=== PATIENT | male | born 1985 | race Caucasian/White ===

== ENCOUNTER 2022-03-31 13:29 | Emergency (ER) | payer BC, SELFPAY ==
[2022-03-31 13:38] VITALS: BP 181/102; PULSE 86; RESP 16; TEMP 36.6; O2SAT 99; BMI 34.5
--- NOTE | 2022-03-31 16:03 | CRLHL7_ITS ---
For Patients: As a result of the Century Cures Act, medical imaging exams and procedure reports are released immediately into your electronic medical record. You may view this report before your referring provider. If you have questions, please contact your health care provider. Indication: Right testicular pain. History of left orchiectomy.. Technique: Ultrasound of the scrotum and contents. Sonographic pitt-scale images were obtained with spectral and color Doppler waveform and spectral waveform analysis of the testicles. Comparison: None. Findings: Status post left orchiectomy. Right testicle is normal in size measuring 4.5 x 2.1 x 4.0 centimeters. No masses. Testicular microlithiasis is noted, nonspecific.. Normal arterial and venous color Doppler blood flow and spectral waveforms are present in the right testicle. Right epididymis: Unremarkable. Normal blood flow. Other: Small right hydrocele is noted. No sign of varicocele. Scrotal wall is normal. Impression: Status post left orchiectomy. Small right hydrocele. Scattered microcalcifications noted within the right testicle, nonspecific. No masses identified. No abnormal blood flow or evidence of inflammatory changes. Dictated by Lisa Jordan MD @ 03/31/2022 5:43:58 PM (Electronically Signed)
--- NOTE | 2022-03-31 16:15 | ED.NURSE ---
Patient to radiology for u/s.
--- OUTSIDE RECORDS SUMMARY | 2022-03-31 16:53 | XMS_ITS | Encounter Summary ---
:1985 Author Organization [place] Address [address] [facility] [place] [address] Care Team Providers Name Role Phone Carlos Chapamn MD Unavailable [facility], [facility] Clinics- Reason for Visit Reason Onset Date Comments Question 07/25/2019 Patient has a new one - what is the jarrod for the aid? Encounter Details Date Type Department Care Team Description 07/25/2019 Telephone [facility] Audiology Unknown Question (Patient has a new [address] [facility] phone - what is the jarrod for 4th Floor the aid?) [place], [place] [phone] Social History Tobacco Use Types Packs/Day Years Used Date Smoking Tobacco: Never Pipe Smokeless Tobacco: Never Alcohol Use Standard Drinks/Week Comments Yes 1 (1 standard drink = 0.6 oz pure Alcoho lic Drinks/day: Social alcohol) drinker. 1 every cou ple months. Sex Assigned at Date Recorded Not on file documented as of this encounter Miscellaneous Notes Telephone Encounter - Kitty Casper - 07/25/2019 4:42 PM CST Called patient with information on phone application for hearing aid use and he has already figured it out and has functioning on his phone. Luis Sneed. Flatbed [place] [phone] [facility] Call Center Phone Message May a detailed message be left on voicemail: yes Reason for Call: Other: Patient has a new phone and called to find out what the name of the jarrod is that he downloads for his GN Resound hearing aid. Please follow up with patient. Thank you! 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
--- OUTSIDE RECORDS SUMMARY | 2022-03-31 16:53 | XMS_ITS | Clinical Summary ---
:1985 Author Organization [place] Address [address] [place] [address] Care Team Providers Name Role Phone [facility], [facility]- Allergies Active Allergy Reactions Severity Noted Date Comments Seasonal Allergies 09/02/2016 Medications Medication Sig Dispensed Refills Start Date End Date Status medical cannabis 100 mLs (This is 0 Information 0 Active oral liquid NOT a only (Patient's own prescription, and supply. 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 The purpose of this order is to document that the patient reports taking medical cannabis.) alum & mag Take 30 mLs by 355 mL 0 08/07/2015 Act tamera hydroxide-simethi mouth every 4 cone hours as needed (MYLANTA/MAALOX) for indigestion 200-200-20 MG/5ML SUSP Additional Information Patient not taking. Reported on 02/17/2017 acetaminophen (TYLENOL) 325 MG Take 2 tablets (650 mg) 40 tablet 0 10/23/2015 Active tablet by mouth every 6 hours as needed Additional Information Patient not taking. Reported on 02/17/2017 ibuprofen (ADVIL,MOTRIN) 200 Take 3 tablets 100 tablet 3 02/09 Active MG tabletIndications: (600 mg) by Cisplatin induced neuropathy mouth every 6 (H) hours as needed medical cannabis oral liquid 0 Information only 0 Active (Patient's own supply. Not a prescription) cetirizine HCl 10 MG Take 1 capsule 30 capsule 1 06/12/2016 Active CAPSIndications: Other acute by mouth daily nonsuppurative otitis media as needed of left ear Additional Information Patient not taking. Reported on 02/17/2017 cholecalciferol (VITAMIN D3) Take 1 capsule 12 capsule 3 08/17 Active 41098 UNITS capsuleIndications: (50,000 Units) by Vitamin D deficiency mouth once a week Additional Information Patient not taking. Reported on 02/17/2017 fluticasone (FLONASE) 50 Roann 1-2 sprays into 1 Bottle 3 Active MCG/ACT sprayIndications: both nostrils daily Seasonal allergic rhinitis, unspecified allergic rhinitis trigger ibuprofen (ADVIL/MOTRIN) 600 MG TAKE 1 TABLET BY MOUTH 30 tablet 3 10/28/2016 Active tabletIndications: Other acute EVERY 6 HOURS nonsuppurative otitis media of NEEDED FOR MODERATE left ear PAIN Additional Information Patient not taking. Reported on 02/17/2017 chlorthalidone (HYGROTON) 25 MG Take 1 tablet (25 30 tablet 1 02/17/2017 Active tabletIndications: Benign mg) by mouth daily essential hypertension methocarbamol (ROBAXIN) 750 MG Take 1 tablet (750 15 tablet 0 10/03/2019 Active tablet mg) by mouth 4 times daily as needed for muscle spasms Active Problems Patient Care Coordination Note Formatting of this note might be differe nt from the original. [email or web address] Problem Noted Date CARDIOVASCULAR SCREENING; LDL GOAL LESS THAN 160 08/04 Hearing loss of both ears 08/04/2016 Vitamin D deficiency 03/18/2016 Advance Care Planning 01/13/2016 Overview: Advance Care Planning 01/13/2016: Receipt of ACP document: Received: Resuscitation Guidelines order which was signed and dated by provider on 01/08/2016. Document not previously scanned. Reviewed for sharon padgett as medical order and sent to [facility]. Code Status reflects choices in most recent ACP document. Confirmed/documented designated decision maker(s). Added by Stefany Lau Benign essential hypertension 12/10/2015 Chronic pain syndrome 11/04/2015 Overview: Patient is followed by PATEL JC for ongoing prescription of pain medication. All refills should be approved by this provider, or covering partner. Medication(s): medical cannabis. Maximum quantity per month: not prescrib ed by [facility] visit frequency required: also ma naged by Pain Management Controlled substance agreement on file: No Pain Clinic evaluation in the past: Yes Date/Location: [place] 11/2014 and new referral 10/2015 DIRE Total Score(s): No flowsheet data found. 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 Dizziness 03/09/2014 Health Shelter 03/06/2014 Overview: Status: Resources provided Scribing Machine Operator: Ammy Olivera RN [phone], Susan Garcia [phone] (no active care coordination) See Letters for [facility] Emergency Care Plan Date: March 06, 2014 Muscle stiffness 02/21/2014 H/O testicular cancer 10/26/2012 Overview: S/p L orchiectomy Resolved Problems Problem Noted Date Resolved Date Bilateral low back pain, with sciatica presence unspecified 06/26/2015 07/03/2015 CARDIOVASCULAR SCREENING; LDL GOAL LESS THAN 160 10/25/2012 06/03/2016 Low back pain 08/21/2009 10/17/2009 Ankle pain 09/28/2008 08/21/2009 Pain in joint, ankle and foot 06/13/2008 09/05/2008 Brachial neuritis or radiculitis 02/10/2005 010 Overview: Problem list name updated by automated p rocess. Provider to review iamLUMB/LUMBOSAC DISC DEGEN 02/10/2005 08/21/2009 Immunizations Name Administration Dates Next Due Influenza (IIV3) PF 03/01/2009, 04/26/2001 Influenza Vaccine IM > 6 months Valent IIV4 04/06/2014 (Alfuria,Fluzone) MMR 01/23/1997 TD (ADULT, 7+) 11/29/2007, 01/23/1997 TDAP Vaccine (Adacel) 10/26/2012 Tdap (Adacel,Boostrix) 11/17/2011 Family History Medical History Relation Comments Obesity Father C.A.D. Maternal Grandfather [place] Myocardial Infarction Maternal Grandfather C.A.D. Maternal Uncle several with heart d isease Cancer Maternal Uncle lymphoma Neurologic Disorder Maternal Uncle Multiple Sclerosis a nd brain aneurysm Obesity Mother Cancer Paternal Grandfather stomach cancer Relation Status Comments Brother 1 Alive Brother 2 Alive Father Alive Maternal Grandfather Maternal Grandmother Alive Maternal Uncle Mother Alive Paternal Grandfather Paternal Grandmother Alive Sister Alive Son 1 Alive Son 2 Alive Social History Tobacco Use Types Packs/Day Years Used Date Smoking Tobacco: Never Pipe Smokeless Tobacco: Never Tobacco Cessation: Counseling Given: No Alcohol Use Standard Drinks/Week Comments Yes 1 (1 standard drink = 0.6 oz pure Alcoho lic Drinks/day: Social alcohol) drinker. 1 every cou ple months. Sex Assigned at Date Recorded Not on file Last Filed Vital Signs Vital Sign Reading Time Taken Comments Blood Pressure 148/92 12/12/2020 6:00 PM CDT Pulse 81 12/12/2020 6:00 PM CDT Temperature 36.6 ??C (97.8 ??F) 12/12/2020 3:44 PM CDT Respiratory Rate 16 12/12/2020 6:00 PM CDT Oxygen Saturation 98% 12/12/2020 6:00 PM CDT Inhaled Oxygen Concentration - - Weight 95.3 kg (210 lb) 12/12/2020 3:44 PM CDT Height 167.6 cm (5' 6) 10/03/2019 7:22 PM CDT Body Mass Index 33.89 10/03/2019 7:22 PM CDT Plan of Treatment Health Maintenance Due Date Last Done Comments ANNUAL REVIEW OF HM ORDERS 1985 HEPATITIS B IMMUNIZATION (1 1985 of 3 - 3-dose series) URINE DRUG SCREEN 1985 COVID-19 Vaccine (#1) 04/09/1985 MEDICARE ANNUAL WELLNESS 10/26/2013 10/26/2012 VISIT ADVANCE CARE PLANNING 03/16/2021 03/16/2016, 01/13/2016 PHQ-2 (once per calendar 05/31/2021 03/19/2016, 03/19/2016, year) 03/19/2015 LIPID 08/18/2021 08/18/2016, 06/04/2016, 02/05/2015, Additional history exists INFLUENZA VACCINE (#1) 2022 03/12/2017, 02/26/2017, 04/06/2014, Additional history exists DTAP/TDAP/TD IMMUNIZATION 11/14/2028 11/14/2018, 10/26/2012 , (6 - Td or Tdap) 11/17/2011, Additional history exists HEPATITIS C SCREENING Completed 03/19/2015 HIV SCREENING Completed 03/19/2015 IPV IMMUNIZATION Aged Out No longer eligi ble based on patient 's age to complete this topic MENINGITIS IMMUNIZATION Aged Out No longe r eligible based on patient 's age to complete this topic Pneumococcal Vaccine: Aged Out No longer eligible Pediatrics (0 to 5 Years) based on patient's age and At-Risk Patients (6 to to co mplete this topic 64 Years) Insurance Payer Benefit Plan / Subscriber ID Effective Dates Phone Addre ss Type Group MEDICARE MEDICARE [id number] 2020-Lauryn [phone] ATTN [facility] Medicare t 40 [address] [place] [address] BLUE PLUS BLUE PLUS [id number] 2019-Pressharon [phone] [address] [address] [address] [place] [address] Ronn Hinkle Personal/Famil Self 1985 [id number] (Home) MARLEN Odell None (Work) [place] [id number] Ronn Hinkle Third Libertarian Self 1985 [id number] (Home) MARLEN Odell None (Work) [place] [phone] Ronn Hinkle Third Libertarian Self 1985 [id number] ([address] [place] [address] Ronn Hinkle Third Libertarian Self 1985 [id number] (Home) [place] [address] Ronn Hinkle Third Libertarian Self 1985 [id number] (Home) MARLEN Odell None (Work) [place] [facility] [id number] Advance Directives For more information, please contact: [phone] Documents on File Type Date Recorded Patient Quality Control Checker Explanati on Advance Directives 01/14/2016 11:14 AM RESUSCITAT ION and Living Will GUIDELINES 01/07 Latest Code Status on File Code Status Date Activated Date Inactivated Comments Full Code 01/10/2016 4:04 PM 04/30/2019 4:34 PM Care Teams Industrial Spray Painter Relationship Specialty Start Date End Date [facility] And PCP - General 04/30/19 [facility] [address] [place] [address]
--- OUTSIDE RECORDS SUMMARY | 2022-03-31 16:53 | XMS_ITS | Encounter Summary ---
:1985 Author Organization [place] Address [address] [place] [address] Care Team Providers Name Role Phone [facility] Clinics- Encounter Details Date Type Department Care Team Description 12/19/2020 Travel Social History Tobacco Use Types Packs/Day Years Used Date Smoking Tobacco: Never Pipe Smokeless Tobacco: Never Alcohol Use Standard Drinks/Week Comments Yes 1 (1 standard drink = 0.6 oz pure Alcoho lic Drinks/day: Social alcohol) drinker. 1 every cou ple months. Sex Assigned at Date Recorded Not on file COVID-19 Exposure Response Date Recorded In the last month, have you been in contact with No / Unsure 12/19/2020 10:51 AM CDT someone who was confirmed or suspected to have Coronavirus / COVID-19? documented as of this encounter Plan of Treatment Not on filedocumented as of this encounter Visit Diagnoses Not on filedocumented in this encounter Additional Health Concerns Assessment Noted Time PHQ-9 Depression Total Score: 5 03/20/2016 7:18 AM CDT documented as of this encounter Care Teams Social Services Assistant Relationship Specialty Start Date End Date [facility] And PCP - General 04/30/19 [facility] [address] [place] [address] documented as of this encounter
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
--- OUTSIDE RECORDS SUMMARY | 2022-03-31 16:53 | XMS_ITS | Encounter Summary ---
:1985 Author Organization [place] Address [address] [place] [address] Care Team Providers Name Role Phone Carlos Chapman MD Unavailable [facility] Clinics- Encounter Details Date Type Department Care Team Description 10/03/2019 Travel Social History Tobacco Use Types Packs/Day [...] been in contact with No / Unsure 10/03/2019 7:21 PM CDT someone who was confirmed or suspected to have Coronavirus / COVID-19? documented as of this encounter Plan of Treatment Not on filedocumented as of this encounter Visit Diagnoses Not on filedocumented in this encounter Additional Health Concerns Assessment Noted Time PHQ-9 Depression Total Score: 5 03/20/2016 7:18 AM CDT documented as of this encounter Care Teams Deputy Head Relationship Specialty Start Date End Date [facility] And PCP - General 04/30/19 [facility]- [address] [place] [address] Carlos Chapman MD Assigned PCP 06/28/16 02/24/20 [address] [place], [place] [id number] documented as of this encounter
--- OUTSIDE RECORDS SUMMARY | 2022-03-31 16:53 | XMS_ITS | Encounter Summary ---
:1985 Author Organization [place] Address [address] [facility] [place] [address] Care Team Providers Name Role Phone [facility] And Primary Care [facility] Clinics- Encounter Details Date Type Department Care Team Description 04/12/[address] [facility] Teodora Sensorin eural hearing Clinic Audiology Bora Jacobs loss, bilateral [facility] on [address] [place] [address] (Primary Dx) [address] [place], [place] 4th Floor [address] [place], [place] [phone] (Work) [phone] Social History Tobacco Use Types Packs/Day Years [...] been in contact with No / Unsure 04/12/2020 8:45 AM EYEGLASS FRAMES POLISHER someone who was confirmed or suspected to have Coronavirus / COVID-19? documented as of this encounter Progress Notes Arlene Araiza AuD - 04/12/2020 9:00 AM CST AUDIOLOGY REPORT BACKGROUND INFORMATION: Ronn Hinkle was seen in the Audiology Clinic at [facility] on 04/12/2020 for follow-up. The patient has been seen previously at an outside clinic and results revealed and essentially bilateral sensorineural hearing loss. The patient was fit with binaural ReSound Linx2 7 hearing aids on 08/25/2016. The patient reports that the hearing aids are not working and that he has concerns regarding his left ear hearing changing. He notes a recent left ear infection. His history is significant for a left tympanoplasty at an outside clinic. An order from his physician was not received in time for today's appointment. It was discussed that he could still have the hearing evaluation, but he insurance would likely not cover the expense without an order. He expressed understanding. TEST RESULTS AND PROCEDURES: Both devices were found to be plugged with cerumen. The devices were thoroughly cleaned and a listening check revealed that they sound crisp and clear with no distortion orweakness noted. A review of how to clear the hearing aids and change wax guards was reviewed, he expressed understanding. Otoscopy revealed no significant cerumen. He reported good volume when the hearing aids were place back in his ears, although he did note that some things sounded strange. The hearing aids were connected with his iPhone again, a review of streaming and the phone jarrod was performed.The phone jarrod did not have all of the features enabled as the hearing aids are still set to auto-acclimatize, suggesting that they have not been worn since his last appointment in 2018. It was discussed that it will take time to adapt to how things sound given that he has not worn the hearing aids, heexpressed understanding. Because the patient felt that he was hearing well with the cleaned hearing aids, he decided against a hearing evaluation today. He was encouraged to follow-up with his ENT (at [facility] who performed his tympanoplasty) regarding his left ear concerns. Patient requested batteries today. 24 cells of size 13 batteries were dispensed and will be billed to the patient's insurance. SUMMARY AND RECOMMENDATIONS: A hearing aid check was performed today. Adjustments were made as notedabove and the patient will return as needed or at least every 8-10 months for cleaning and assessment of hearing aid. Call this clinic with questions regarding today???s visit. Bora Gonzalez Associate Store Manager [place] License #[id number] LASS FRAMES POLISHER documented in this encounter Plan of Treatment Not on filedocumented as of this encounter Procedures Procedure Name Priority Date/Time Associated Diagnosis Comme nts ID HEARING AID CHECK, Routine 04/12/2020 10:25 AM Sensorineura l hearing BINAURAL EYEGLASS FRAMES POLISHER loss, bilateral documented in this encounter Visit Diagnoses Diagnosis Sensorineural hearing loss, bilateral - Primary documented in this encounter Additional Health Concerns Assessment Noted Time PHQ-9 Depression Total Score: 5 03/20/2016 7:18 AM CDT documented as of this encounter Care Teams Piano Maker Relationship Specialty Start Date End Date [facility] And PCP - General 04/30/19 [facility]- [address], [place] [address] documented as of this encounter
--- OUTSIDE RECORDS SUMMARY | 2022-03-31 16:53 | XMS_ITS | Encounter Summary ---
:1985 Author Organization [place] Address [address] [place] [place] [address] Care Team Providers Name Role Phone [facility] And Primary Care [facility] Clinics- Reason for Visit (Routine) - Closed Specialty Diagnoses / Procedures Referred By Contact Refer red To Contact Cardiology Diagnoses NO BB Rh Cardiac Services Procedures ECHO STRESS TEST [address] [place], [place] [address] Phone: Referral ID Status Reason Start Date Expiration Date Visits Requ ested Visits Authorized [id number] Closed 12/19/2020 12/19/2021 1 1 Encounter Details Date Type Department Care Team Description 12/19/2020 Hospital Encounter [facility] Jose Conway Chest pain, [facility] MD Rodolfo unspecified type [facility] [address] [facility] [place], [place] [address] [facility] [address] [place], [place] [phone] [id number] Social History Tobacco Use Types Packs/Day Years [...] / COVID-19? documented as of this encounter Medications at Time of Discharge [...] capsule 12 capsule 3 08/17/2016 (VITAMIN D3) 46458 (50,000 Units) by UNITS mouth once a week capsuleIndications: Vitamin D deficiency fluticasone (FLONASE) [place] 1-2 sprays 1 Bottle 3 08/18/19 17 [...] that the patient reports taking medical cannabis.) methocarbamol Take 1 tablet (750 15 tablet 0 10/03/2019 (ROBAXIN) 750 MG mg) by mouth 4 tablet times daily as needed for muscle spasms documented as of this encounter Plan of Treatment Not on filedocumented as of this encounter Procedures Procedure Name Priority Date/Time Associated Diagnosis Comme nts ECHO EXERCISE MARANDA 12/19/2020 11:29 AM Chest pain, Results for this STRESS TEST CDT unspecified type procedure a re in the results section. documented in this encounter Results ECHO EXERCISE STRESS TEST (12/19/2020 11:29 AM CDT) Anatomical Region Laterality Modality Echocardiography Specimen (Source) Anatomical Collection Method Collection Time Re ceived Time Location / / Volume Laterality 12/19/2020 11:21 AM CDT Narrative 12/19/2020 12:42 PM CDT [id number]^ZORAIDA^GARETH^R [facility] Echocardiography Laboratory [address] [place] [address] Name: RONN HIKNLE : 1985 Study Date: 12/19/2020 11:21 AM Age: 35 yrs Gender: Male Patient Location: [facility] Reason For Study: Chest pain, unspecifie d type Ordering Physician: GARETH CONWAY Referring Physician: GARETH CONWAY Performed By: Valarie Lux BSA: 2.1 m2 Height: 67 in Weight: 210 lb HR: 79 BP: 148/102 mmHg Procedure Stress Echo Complete. Interpretation Summary There was a hypertensive BP response to exercise. This was a normal stress echocardiogram with no evidence of stress-induced ischemia. Stress The patient exercised 10:30. There was a hypertensive BP response to exercise. RPP 77936. The patient exhibited chest pain during exercise. Exercise was stopped due to fatigue. The patient exhibited no chest pain duri ng exercise. Target Heart Rate was not achieved due t o fatigue. The Cortes treadmill score was low risk ( >5 Cortes score). Target Heart Rate was achieved. The EKG portion of this stress test was negative for inducible ischemia (see echo results below). Normal resting wall motion and no stress -induced wall motion abnormality. The visual ejection fraction is estimate d at >70%. Left ventricular cavity size decreases w ith exercise. Global LV systolic function augments wit h exercise. Baseline The patient is in normal sinus rhythm. non specific ivcd inferior leads. Hypertensvie at rest. Normal left ventricular function and wal l motion at rest. The visual ejection fraction is estimate d at 55-60%. No hemodynamically significant valvular abnormalities on 2D or color flow imaging. Stress Results ? Protocol: ??Mickey ?Maximum Predicted HR: ?? 184 bpm ? Target HR: 156 bpm ?% Maximum Predicted HR: 79 % ? Duration ??Heart ??Stage ?? (mm:ss) ??Rate ? BP ? Comment ? (bpm) Stage 1 ?? 3:00 ? 100 ?? 162/1043/1 0 chest tightness Stage 2 ?? 3:00 ? 116 ?? 172/1004/1 0 Chest tightness Stage 3 ?? 3:00 ? 123 ?? 192/1004/1 0 chest pressure Stage 4 ?? 1:30 ? 146 ?/ ?? 5/10 chest pressure. Average functional ? aerobic capacity. RecoveryR ??9:00 ? 93 ?150/100Sy mptoms returned to baseline. ? Stress Duration: ?? 10:30 mm:s s * ?Recovery Time: 9:00 mm:ss ? Maximum Stress HR: 146 bpm * ?METS: ?12 Report approved by: Curt Hunt 12/19 12:42 PM Procedure Note Jose Alfredo Del Toro MD - 12/19/2020Forma tting of this note might be different from the original. [id number]^ZORAIDA^GARETH^R [facility] Echocardiography Laboratory [address] [place] [address] Name: RONN HINKLE : 1985 Study Date: 12/19/2020 11:21 AM Age: 35 yrs Gender: Male Patient Location: [facility] Reason For Study: Chest pain, unspecifie d type Ordering Physician: GARETH CONWAY Referring Physician: GARETH CONWAY Performed By: Valarie Lux BSA: 2.1 m2 Height: 67 in Weight: 210 lb HR: 79 BP: 148/102 mmHg Procedure Stress Echo Complete. Interpretation Summary There was a hypertensive BP response to exercise. This was a normal stress echocardiogram with no evidence of stress-induced ischemia. Stress The patient exercised 10:30. There was a hypertensive BP response to exercise. RPP 01789. The patient exhibited chest pain during exercise. Exercise was stopped due to fatigue. The patient exhibited no chest pain duri ng exercise. Target Heart Rate was not achieved due t o fatigue. The Cortes treadmill score was low risk ( >5 Cortes score). Target Heart Rate was achieved. The EKG portion of this stress test was negative for inducible ischemia (see echo results below). Normal resting wall motion and no stress -induced wall motion abnormality. The visual ejection fraction is estimate d at >70%. Left ventricular cavity size decreases w ith exercise. Global LV systolic function augments wit h exercise. Baseline The patient is in normal sinus rhythm. non specific ivcd inferior leads. Hypertensvie at rest. Normal left ventricular function and wal l motion at rest. The visual ejection fraction is estimate d at 55-60%. No hemodynamically significant valvular abnormalities on 2D or color flow imaging. Stress Results Protocol: Mickey Maximum Predicted HR: 1 84 bpm Target HR: 156 bpm % Maximum Predicted HR: 79 % Duration Heart Stage (mm:ss) Rate BP Comment (bpm) Stage 1 3:00 100 162/1043/10 chest [facility] Stage 2 3:00 116 172/1004/10 Chest tigh tness Stage 3 3:00 123 192/1004/10 chest pres sure Stage 4 1:30 146 / 5/10 chest pressure. Average functional aerobic capacity. RecoveryR 9:00 93 150/100Symptoms return ed to baseline. Stress Duration: 10:30 mm:ss * Recovery Time: 9:00 mm:ss Maximum Stress HR: 146 bpm * METS: 12 Report approved by: Curt Hunt 12/19 12:42 PM Gareth Conway MD CV ECHO ORDERABLES documented in this encounter Visit Diagnoses Diagnosis Chest pain, unspecified type documented in this encounter Additional Health Concerns Assessment Noted Time PHQ-9 Depression Total Score: 5 03/20/2016 7:18 AM CDT documented as of this encounter Care Teams Windows Server Architect Relationship Specialty Start Date End Date [facility] And PCP - General 04/30/19 [facility] [address] [place] [address] documented as of this encounter
--- OUTSIDE RECORDS SUMMARY | 2022-03-31 16:53 | XMS_ITS | Encounter Summary ---
:1985 Author Organization [place] Address [address] [place] [address] Care Team Providers Name Role Phone [facility] Primary [facility] Clinics- Encounter Details Date Type Department Care Team Description 04/12/2020 Travel Social History Tobacco Use Types Packs/Day [...] with No / Unsure 04/12/2020 8:45 AM ORDER ENTRY CLERK someone who was confirmed or suspected to have Coronavirus / COVID-19? documented as of this encounter Plan of Treatment Not on filedocumented as of this encounter Visit Diagnoses Not on filedocumented in this encounter Additional Health Concerns Assessment Noted Time PHQ-9 Depression Total Score: 5 03/20/2016 7:18 AM CDT documented as of this encounter Care Teams Wire Drawing Machine Operator Relationship Specialty Start Date End Date [facility] And PCP - General 04/30/19 [facility] [address] [place], [place] [phone] documented as of this encounter
--- OUTSIDE RECORDS SUMMARY | 2022-03-31 16:53 | XMS_ITS | Encounter Summary ---
:1985 Author Organization [place] Address [address] [place] [address] Care Team Providers Name Role Phone Carlos Chapman MD Unavailable [facility]- Encounter Details Date Type Department Care Team Description 10/03/2019 Emergency [facility] David Kaba MD Lateral epicondylitis [facility] of right elbow Dept [facility] [address] [facility] [address] [id number] [place], [place] [address] (Wo rk) Social History Tobacco Use Types Packs/Day Years [...] / COVID-19? documented as of this encounter Last Filed Vital Signs Vital Sign Reading Time Taken Comments Blood Pressure 154/100 10/03/2019 7:22 PM CDT Pulse 96 10/03/2019 7:22 PM CDT Temperature 36.8 ??C (98.3 ??F) 10/03/2019 7:22 PM CDT Respiratory Rate 14 10/03/2019 7:22 PM CDT Oxygen Saturation 99% 10/03/2019 7:22 PM CDT Inhaled Oxygen Concentration - - Weight 102.7 kg (226 lb 6.6 oz) 10/03/2019 7:22 PM CDT Height 167.6 cm (5' 6) 10/03/2019 7:22 PM CDT Body Mass Index 36.54 10/03/2019 7:22 PM CDT documented in this encounter Discharge Instructions Discharge InstructionsPorter Kaba MD - 10/03/2019 8:26 PM CDT Ice lateral aspect of the elbow 2-3 times daily. Limit heavy lifting and grasping with right upper extremity as much as possible. Take anti- inflammatories as prescribed with food. Follow-up with your primary care physician as outpatient. If develop swelling of the joint or arm fever or other concern return to the emergency department. AttachmentsThe following attachments cannot be sent through Care Everywhere. Lateral Epicondylitis, Understanding (Swiss)Tennis Elbow (Swiss)documented in this encounter Medications at Time of [...] 02/17/2017 (HYGROTON) 25 MG mg) by mouth tabletIndications: daily Benign essential hypertension cholecalciferol Take 1 capsule 12 capsule 3 08/17/2016 (VITAMIN D3) 74028 (50,000 Units) by UNITS mouth once a week capsuleIndications: Vitamin D deficiency fluticasone (FLONASE) [place] 1-2 sprays 1 Bottle 3 08/18/19 17 50 MCG/ACT into both sprayIndications: nostrils daily Seasonal allergic rhinitis, unspecified allergic [...] taking medical cannabis.) methocarbamol Take 1 tablet 15 tablet 0 10/03/2019 (ROBAXIN) 750 MG (750 mg) by mouth tablet 4 times daily as needed for muscle spasms naproxen (NAPROSYN) Take 1 tablet 14 tablet 0 10/03/2019 500 MG tablet (500 mg) by mouth 2 times daily (with meals) for 7 days documented as of this encounter ED Notes Mnaish Reynolds. BRUCE Higuera - 10/03/2019 7:24 PM CDT Pt reports worsening R arm pain radiating from his shoulder to his wrist beginning about 1 week ago.Reports difficulty lifting his phone and doing ADLs. Denies any trauma, CMS intact. 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 Porter Kaba MD - 10/03/2019 7:11 PM CDT History Chief Complaint: Right Arm Pain SHAWNA Hinkle is a 33 year old male who presents to the emergency department for evaluation of right arm pain. Of note, the patient is right handed. Two weeks ago the patient began to experience rightarm pain that starts at his shoulder and radiates down through his elbow and down to his fingers. Hedoes not believe that he has fallen or had any other trauma to his arm. He has not been lifting heavy objects either. He does do repetitive grasping and carrying at work. The patient denies swelling. Allergies: No known drug allergies Medications: Mylanta Cetirizine Hygroton Flonase Past Medical History: Hypertension Neuromuscular disorder Palpitations Testicular cancer Past Surgical History: L testicular ca, with spinal met Family History: Obesity Social History: The patient presents today alone. Smoking Status: Former Smoker Smokeless Tobacco: Never Used Alcohol Use: No Drug Use: No PCP: [facility], [facility]- Review of Systems Musculoskeletal: Negative for joint swelling. Arm pain All other systems reviewed and are negative. Physical Exam Patient Vitals for the past 24 hrs: BP Temp Temp src Pulse Resp SpO2 Height Weight 10/03/191921 (!) 154/100 98.3 ??F (36.8 ??C) Oral 96 14 99 % 1.676 m (5' 6) 102.7 kg (226 lb 6.6 oz) Physical Exam Vital signs and nursing notes reviewed. Constitutional: laying on gurney appears comfortable HENT: Oropharynx is clear and moist Eyes: Conjunctivae are normal bilaterally. Pupils equal Neck: normal range of motion, no pain with range of motion neck or palpation. Cardiovascular: Normal rate, regular rhythm, normal heart sounds. Pulmonary/Chest: Effort normal and breath sounds normal. No respiratory distress. Abdominal: Soft. Bowel sounds are normal. No tenderness to palpation. No rebound or guarding. Musculoskeletal: No right upper extremity swelling. No swelling of the shoulder elbow or wrist noted. Patient has pain with direct palpation to the radial head area. Also increased pain with pronation supination. Neurological: Alert and oriented. No focal weakness Skin: Skin is warm and dry. No rash noted. Psych: normal affect Emergency Department Course Imaging: Radiology findings were communicated with the patient who voiced understanding of the findings. Elbow XR, G/E 3 views, right: Normal joint spaces and alignment. No fracture or joint effusion. As per radiology. Interventions: 2000 Toradol 15 mg IM 2000 Robaxin 750 mg PO Emergency Department Course: 1920 Nursing notes and vitals reviewed. 1926 I performed an exam of the patient as documented above. 2008 The patient was sent for a Elbow XR, G/E 3 views, right while in the emergency department, results above. Findings and plan explained to the Patient. Patient discharged home with instructions regarding supportive care, medications, and reasons to return. The importance of close follow-up was reviewed. The patient was prescribed Robaxin and Naprosyn. Impression & Plan Medical Decision Making: Ronn Hinkle is a 33 year old male who presents to the emergency department today with fairly persistent right arm pain. On examination he had point tenderness at the radial head as well as pain withmostly supination, pronation. He no evidence of discomfort from the cervical spine or right shoulder. There is no joint swelling or soft tissue swelling around the sight. There is no evidence of soft tissue infection. Xray obtained shows no bony abnormality. I discussed with patient the findings and my suspicion that based on his exam and history that he likely has lateral epicondylitis. I recommended limiting his range of motion, repetitive use, and lifting with that right upper extremity as much as possible. Also he should take antiinflammatories twice times daily and ice the area frequently. He is advised to follow up with his primary physician if no improvement in 5 to 7 days. Patient understands the plan and is discharged home. Discharge Diagnosis: ICD-10-CM 1. Lateral epicondylitis of right elbow M77.11 Disposition: The patient is discharged to home. Discharge Medications: New Prescriptions METHOCARBAMOL (ROBAXIN) 750 MG TABLET Take 1 tablet (750 mg) by mouth 4 times daily as needed for muscle spasms NAPROXEN (NAPROSYN) 500 MG TABLET Take 1 tablet (500 mg) by mouth 2 times daily (with meals) for 7 days Scribe Disclosure: I, Eddie Harmon, am serving as a scribe at 7:24 PM on 10/03/2019 to document services personally performed by Porter Kaba MD based on my observations and the provider's statements to me. Porter Kaba MD 10/03/19 2485 documented in this encounter Plan of Treatment Not on filedocumented as of this encounter Procedures Procedure Name Priority Date/Time Associated Diagnosis Comme nts XR ELBOW RIGHT G/E STAT 10/03/2019 8:10 PM Res ults for this 3 VIEWS CDT procedure are i n the results section. documented in this encounter Results Elbow XR, G/E 3 views, right (10/03/2019 8:10 PM CDT) Anatomical Region Laterality Modality Elbow, Right Elbow Right Digital Radiography Specimen (Source) Anatomical Collection Method Collection Time Re ceived Time Location / / Volume Laterality 10/03/2019 8:05 PM CDT Impressions 10/03/2019 8:24 PM CDT IMPRESSION: Normal joint spaces and alig nment. No fracture or joint effusion. Narrative 10/03/2019 8:24 PM CDT EXAM: XR ELBOW RT G/E 3 VW LOCATION: [facility] DATE/TIME: 10/03/2019 8:05 PM INDICATION: Elbow pain. COMPARISON: None. Procedure Note Hector Goldman MD - 10/03/2019Formatting o f this note might be different from the original. EXAM: XR ELBOW RT G/E 3 VW LOCATION: [facility] DATE/TIME: 10/03/2019 8:05 PM INDICATION: Elbow pain. COMPARISON: None. IMPRESSION: Normal joint spaces and alig nment. No fracture or joint effusion. Porter Kaba MD IMG DIAGNOSTIC IMAGING ORDER VANESSA documented in this encounter Visit Diagnoses Diagnosis Lateral epicondylitis of right elbow Lateral epicondylitis of elbow documented in this encounter Administered Medications Inactive Administered Medications - up to 3 most recent administrations Medication Order MAR Action Action Date Dose Rate Site ketorolac (TORADOL) injection Given 10/03/2019 8:01 PM CDT 15 mg Right Thigh 15 mg 15 mg, Intramuscular, ONCE, On Wed10/03/19 at 1950, For 1 dose, Can cause pain on injection. If ordered intravenously (IV) : administer through a running maintenance fluid over 1 minute followed by a flush. If patient complains of pain on injection, may dilute 15-30 mg in 5 mL and push over 1 to 2 minutes. methocarbamol (ROBAXIN) tablet 750 mg Given 10/03/2019 8:01 PM CDT 750 mg 750 mg, Oral, ONCE, On Wed10/03/19 at 1950, For 1 dose documented in this encounter Active and Recently Administered Medications Times are shown in CDT. Scheduled Medication Order 10/01/2019 10/02/2019 10/03/2019 ketorolac (TORADOL) injection 15 mg (COMPLETED) 2000 (Given - Provider: Laengle. Davida Reynolds, RN) 15 mg, Intramuscular, ONCE, 10/03/19 a t 1950, For 1 dose, Can cause pain on injection. If ordered intravenously (IV) : administer through a running maintenance fluid over 1 minute followed by a flush. If patient complains of pain on injecti on, may dilute 15-30 mg in 5 mL and push over 1 to 2 minutes. methocarbamol (ROBAXIN) tablet 750 mg (COMPLETED) 2000 (Given - Provider: Laengle. 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
--- OUTSIDE RECORDS SUMMARY | 2022-03-31 16:53 | XMS_ITS | Encounter Summary ---
:1985 Author Organization [place] Address [address] [place] [id number] Care Team Providers Name Role Phone [facility] Clinics- Encounter Details Date Type Department Care Team Description 12/12/2020 Travel Social History Tobacco Use Types Packs/Day [...] been in contact with No / Unsure 12/12/2020 3:38 PM CDT someone who was confirmed or suspected to have Coronavirus / COVID-19? documented as of this encounter Plan of Treatment Not on filedocumented as of this encounter Visit Diagnoses Not on filedocumented in this encounter Additional Health Concerns Assessment Noted Time PHQ-9 Depression Total Score: 5 03/20/2016 7:18 AM CDT documented as of this encounter Care Teams Auto Winder Relationship Specialty Start Date End Date [facility] And PCP - General 04/30/19 [facility]- [address] [place] [address] documented as of this encounter
--- OUTSIDE RECORDS SUMMARY | 2022-03-31 16:53 | XMS_ITS | Encounter Summary ---
:1985 Author Organization Breaks Address [address] [facility] [place] [address] Care Team Providers Name Role Phone [facility]- Reason for Visit Reason Comments Chest Pain Palpitations Encounter Details Date Type Department Care Team Description 12/12/2020 Emergency [facility] Gareth Conway C hest pain, unspecified type; [facility] Emergency Dep t Essential [facility] [address] [facility] [place] [phone] [address] [facility] [phone] [place], [place] [phone] (Wo rk) Social History Tobacco Use Types [...] (210 lb) 12/12/2020 3:44 PM CDT Height - - Body Mass Index 33.89 10/03/2019 7:22 PM CDT documented in this encounter Discharge Instructions Discharge InstructionsGareth Conway MD - 12/12/2020 6:13 PM CDT I have ordered an outpatient stress test. They will call you to arrange a time to have this performed. Please closely follow-up with your primary care physician for further management of your blood pressure as it was elevated today. Discharge Instructions Chest Pain You have been seen today for chest pain or discomfort. At this time, your provider has found no signs that your chest pain is due to a serious or life- threatening condition, (or you have declined more testing and/or admission to the hospital). However, sometimes there is a serious problem that does not show up right away. Your evaluation today may not be complete and you may need further testing and evaluation. Generally, every Emergency Department visit should have a follow-up clinic visit with either a primary or a specialty clinic/provider. Please follow-up as instructed by your emergency provider today. Return to the Emergency Department if: Your chest pain changes, gets worse, starts to happen more often, or comes with less activity. You are newly short of breath. You get very weak or tired. You pass out or faint. You have any new symptoms, like fever, cough, numb legs, or you cough up blood. You have anything else that worries you. Until you follow-up with your regular provider, please do the following: Take one aspirin daily unless you have an allergy or are told not to by your provider. If a stress test appointment has been made, go to the appointment. If you have questions, contact your regular provider. Follow-up with your regular provider/clinic as directed; this is very important. If you were given a prescription for medicine here today, be sure to read all of the information (including the package insert) that comes with your prescription. This will include important information about the medicine, its side effects, and any warnings that you need to know about. The pharmacist who fills the prescription can provide more information and answer questions you may have about the medicine. If you have questions or concerns that the pharmacist cannot address, please call or return to the Emergency Department. Remember that you can always come back to the Emergency Department if you are not able to see your regular provider in the amount of time listed above, if you get any new symptoms, or if there is anything that worries you. Discharge Instructions Hypertension - High Blood Pressure During you visit to the Emergency Department, your blood pressure was higher than the recommended blood pressure. This may be related to stress, pain, medication or other temporary conditions. In thesecases, your blood pressure may return to normal on its own. If you have a history of high blood pressure, you may need to have your provider adjust your medications. Sometimes, your high measurement here may indicate that you have developed high blood pressure that will stay high unless it is treated.As a general rule, high blood pressure causes problems over years rather than days, weeks, or months. So, while it is important to treat blood pressure, it is rarely important to treat blood pressure immediately. Occasionally we will begin a medication in the Emergency Department; more often we will recommend close follow-up for medications with a primary doctor/clinic. Generally, every Emergency Department visit should have a follow-up clinic visit with either a primary or a specialty clinic/provider. Please follow-up as instructed by your emergency provider today. Return to the Emergency Department if you start to have: A severe headache. Chest pain. Shortness of breath. Weakness or numbness that affects one part of the body. Confusion. Vision changes. Significant swelling of legs and/or eyes. A reaction to any medication started in the Emergency Department. What can I do to help myself? Avoid alcohol. Take any blood pressure medicine that you are prescribed. Get a good night???s sleep. Lower your salt intake. Exercise. Lose weight. Manage stress. See your doctor regularly If blood pressure medication was started in the Emergency Department: The medicine may not have an immediate effect. The body and brain determine what blood pressure you have. The medicine???s job is to retrain the body???s ???thermostat?? to a lower blood pressure. You will need to follow up with your provider to see how this medicine is working for you. If you were given a prescription for medicine here today, be sure to read all of the information (including the package insert) that comes with your prescription. This will include important information about the medicine, its side effects, and any warnings that you need to know about. The pharmacist who fills the prescription can provide more information and answer questions you may have about the medicine. If you have questions or concerns that the pharmacist cannot address, please call or return to the Emergency Department. Remember that you can always come back to the Emergency Department if you are not able to see your regular provider in the amount of time listed above, if you get any new symptoms, or if there is anything that worries you. documented in this encounter Medications at Time [...] capsule 12 capsule 3 08/17/2016 (VITAMIN D3) 21159 (50,000 Units) by UNITS mouth once a week capsuleIndications: Vitamin D deficiency fluticasone (FLONASE) Badger 1-2 sprays 1 Bottle 3 08/18/19 17 [...] muscle spasms documented as of this encounter ED Notes Delvin Camarillo RN - 12/12/2020 3:43 PM CDT Presents with intermittent chest pain over the past week. Pt reports worsening L arm and L neck paintoday and palpitations that take his breath away. Hypertensive in triage. A&O x 4. Gareth Conway MD - 12/12/2020 3:38 PM CDT History Chief Complaint: Chest Pain and Palpitations SHAWNA Hinkle is a 35 year old male with history of testicle cancer in remission who presents with chest pain and shortness of breath that started a week ago. The patient had been working when he first felt these symptoms. The patient explains that the chest pain is in the left side and radiates to his left arm and, today, in his throat which makes him cough. He is shortness of breath all the time and the pain and tightness in his chest wavers in intensity. Despite the variation in intensity, patient has no pain-free episodes since it initiated 1 week prior. He mentions it gets worse in the evening. Exerting himself does not change the symptoms. He is currently is remission for testicle cancer. There is no history of DVT, PE, unilateral leg swelling, recent immobilization, hemoptysis. Review of Systems Constitutional: Positive for fever. Respiratory: Positive for shortness of breath. Cardiovascular: Positive for chest pain. All other systems reviewed and are negative. Allergies: The patient has no known allergies. Medications: Maalox [place] Flonase Robaxin Past Medical History: Testicular cancer Hypertension Neuromuscular disorder Hearing loss Cisplatin induced neuropathy GERD Past Surgical History: Removal of testis Abdomen peritoneum omentum surgery Cholecystectomy EGD Colonoscopy Portacath placement Orchiectomy Family History: Obesity CAD Social History: The patient presents alone. Physical Exam Patient Vitals for the past 24 hrs: BP Temp Temp src Pulse Resp SpO2 Weight 12/12/20 1800 (!) 148/92 -- -- 81 16 98 % -- 12/12/20 1730 (!) 162/107 -- -- 81 -- 97 % -- 12/12/20 1600 (!) 158/113 -- -- 90 -- 100 % -- 12/12/20 1544 (!) 199/122 97.8 ??F (36.6 ??C) Temporal 100 19 97 % 95.3 kg (210 lb) Physical Exam Eyes: Conjunctiva normal Neck: Supple, no meningismus. CV: Regular rate and rhythm. No murmurs, rubs or gallops. No unilateral leg swelling. 2+ radial pulses bilateral. No lower extremity edema. PULM: Clear to auscultation bilateral. No respiratory distress. Good air exchange. No rales or wheezing. No stridor. ABD: Soft, non-tender, non-distended. No pulsatile masses. No rebound, guarding or rigidity. MSK: No gross deformity to all four extremities. LYMPH: No cervical lymphadenopathy. NEURO: Alert. Good muscle tone, no atrophy. Skin: Warm, dry and intact. Psych: Mood is good and affect is appropriate. Emergency Department Course ECG ECG taken at 1553, ECG read at 1555 Sinus rhythm with occasional premature ventricular complexes Rate 97 bpm. MI interval 188 ms. QRS duration 78 ms. QT/QTc 352/447 ms. P-R-T axes 30 -12 14. Imaging: Chest XR, PA and LAT: Negative chest. Reading per radiology. Laboratory: CBC: WBC 11.4 (H), HGB 14.9, PLT 231 BMP: Glucose: 105 (H) o/w WNL (Creatinine 1.38 (H)) Troponin (Collected 1602): <0.015 D dimer: <0.27 UA with microscopic: negative o/w WNL Emergency Department Course: Reviewed: I reviewed nursing notes, vitals, past medical history and care everywhere Assessments: 1554 I obtained history and examined the patient as noted above. 1813 I rechecked the patient and explained findings. Interventions: 1645 Toradol 15 mg IV Disposition: The patient was discharged to home. Impression & Plan Medical Decision Makin-year-old male presented to the ED with a 1 week history of left-sided chest pain. EKG without ischemic changes. Troponin within normal limits despite greater than 72 hours of constant pain thus ruling out [facility]. Low suspicion for pulmonary embolism. D-dimer within normal limits thus no indication for CT scan of the chest. No features to suggest aortic dissection or aortic aneurysm. Patient was hypertensive upon presentation and improved without intervention. Patient safe for discharge home with urgent follow-up with primary care physician for further investigation into his chest pain and hypertension. Outpatient stress test ordered. Differential diagnosis would also include GERD, esophageal spasm,costochondritis, pleurisy. Diagnosis: ICD-10-CM 1. Chest pain, unspecified type R07.9 Exercise Stress Echocardiogram 2. Essential hypertension I10 Scribe Disclosure: Raissa Doran, am serving as a scribe at 4:20 PM on 12/12/2020 to document services personally performed by Gareth Conway MD based on my observations and the provider's statements to me. Gareth Conway MD 12/12/202051 documented in this encounter Plan of Treatment Not on filedocumented as of this encounter Procedures Procedure Name Priority Date/Time Associated Comments Diagnosis XR CHEST 2 VIEWS STAT 12/12/2020 5:26 PM Resul ts for this CDT procedure are i n the results section. D DIMER QUANTITATIVE STAT 12/12/2020 4:49 PM R esults for this CDT procedure are i n the results section. URINE MACROSCOPIC STAT 12/12/2020 4:04 PM Resu lts for this WITH REFLEX TO MICRO CDT procedu re are in the results section. CBC WITH PLATELETS STAT 12/12/2020 4:02 PM Res ults for this AND DIFFERENTIAL CDT procedure a re in the results section. CBC WITH PLATELETS & STAT 12/12/2020 4:02 PM R esults for this DIFFERENTIAL CDT procedure are i n the results section. TROPONIN I STAT 12/12/2020 4:02 PM Results f or this CDT procedure are i n the results section. BASIC METABOLIC PANEL STAT 12/12/2020 4:02 PM Results for this CDT procedure are i n the results section. EKG 12-LEAD, TRACING STAT 12/12/2020 3:53 PM R esults for this ONLY CDT procedure are i n the results section. documented in this encounter Results ECHO EXERCISE STRESS TEST (12/19/2020 11:29 AM CDT) Anatomical Region Laterality Modality Echocardiography Specimen (Source) Anatomical Collection Method Collection Time Re ceived Time Location / / Volume Laterality 12/19/2020 11:21 AM CDT Narrative 12/19/2020 12:42 PM CDT [id number]^ZORAIDA^GARETH^R [facility] [address] [place] [id number] Name: RONN HINKLE : 1985 Study Date: 12/19/2020 11:21 AM Age: 35 yrs Gender: Male Patient Location: [facility] Reason For Study: Chest pain, unspecifie [...] a hypertensive BP response to exercise. RPP 37315. The patient exhibited chest pain during exercise. [...] note might be different from the original. [id number]^ZORAIDA^GARETH^R [facility] [address] [place] [id number] Name: RONN HINKLE : 1985 Study Date: 12/19/2020 11:21 AM Age: 35 yrs Gender: Male Patient Location: [facility] Reason For Study: Chest pain, unspecifie [...] a hypertensive BP response to exercise. RPP 72584. The patient exhibited chest pain during exercise. [...] (bpm) Stage 1 3:00 100 162/1043/10 chest tigh tness Stage 2 3:00 116 172/1004/10 Chest tigh [...] PM Gareth Conway MD CV ECHO ORDERABLES Chest XR, PA & LAT (12/12/2020 5:26 PM CDT) Anatomical Region Laterality Modality Chest Computed Radiography Specimen (Source) Anatomical Collection Method Collection Time Re ceived Time Location / / Volume Laterality 12/12/2020 5:16 PM CDT Impressions 12/12/2020 5:27 PM CDT IMPRESSION: Negative chest. Narrative 12/12/2020 5:27 PM CDT EXAM: XR CHEST 2 VW LOCATION: [facility] DATE/TIME: 12/12/2020 5:16 PM INDICATION: chest pain COMPARISON: PA and lateral views of the chest 10/23/2015 Procedure Note Liban Lee MD - 12/12/2020Format ting of this note might be different from the original. EXAM: XR CHEST 2 VW LOCATION: [facility] DATE/TIME: 12/12/2020 5:16 PM INDICATION: chest pain COMPARISON: PA and lateral views of the chest 10/23/2015 IMPRESSION: Negative chest. Gareth Conway MD IMG DIAGNOSTIC IMAGING ORDER VANESSA D dimer quantitative (12/12/2020 4:49 PM CDT) Analysis Performed At Patho logist Time Signature D-Dimer <0.27 0.00 - 12/12/2020 [facility] Quantitative 0.50 ug/mL 5:06 PM CDT FEU Specimen Anatomical Collection Method Collection Time Receive d Time (Source) Location / / Volume Laterality Blood VENOUS LINE / VAD(CVC, PICC) / 12/12/2020 4:49 PM 11/28 4:54 Unknown Unknown CDT PM CDT Narrative [facility] - 12/12/2020 5:06 PM CDT This D-dimer assay is intended for use i n conjunction with a clinical pretest probability assessment model to exclude pulmonary embolism (PE) and deep venous thrombosis (DVT) in outpatients suspecte d of PE or DVT. The cut-off value is 0.50 ug/mL FEU. Gareth Conway MD LAB - BLOOD ORDERABLES Performing Organization Address City/State/ZIP Code [place] [phone] Care [facility] [address] Lab (1st floor, no room number) UA reflex to Microscopic (12/12/2020 4:04 PM CDT) Patholo gist Method Time Signature Color Urine Light Colorless, 12/12/2020 [facility] Yellow Straw, 4:51 PM CDT Light Yellow, Yellow Appearance Urine Clear Clear 12/12/2020 [facility] Y 4:51 PM CDT Glucose Urine Negative Negative 12/12/2020 [facility] mg/dL 4:51 PM CDT Bilirubin Urine Negative Negative 12/12/2020 [facility] 4:51 PM CDT Ketones Urine Negative Negative 12/12/2020 [facility] mg/dL 4:51 PM CDT Specific [place] 1.024 1.003 - 12/12/2020 [facility] Urine 1.035 4:51 PM CDT Blood Urine Negative Negative 12/12/2020 [facility] 4:51 PM CDT pH Urine 6.0 5.0 - 7.0 12/12/2020 [facility] 4:51 PM CDT Protein Albumin Negative Negative 12/12/2020 [facility] Urine mg/dL 4:51 PM CDT Urobilinogen Normal Normal, 2.0 12/12/2020 [facility] Urine mg/dL 4:51 PM CDT Nitrite Urine Negative Negative 12/12/2020 [facility] 4:51 PM CDT Leukocyte Negative Negative 12/12/2020 [facility] Esterase Urine 4:51 PM CDT Specimen Anatomical Collection Method Collection Time Receive d Time (Source) Location / / Volume Laterality Urine MID-STREAM URINE Non-blood 12/12/2020 4:04 PM 12/12 4:46 SPECIMEN / Unknown Collection / CDT PM CDT Unknown Narrative [facility] - 12/12/2020 4:51 PM CDT Microscopic not indicated Gareth Conway MD LAB - URINE ORDERABLES Performing Organization Address City/State/ZIP Code Phon [place] [phone] Care Lab [address] Lab (1st floor, no room number) (ABNORMAL) CBC with platelets and differential (12/12/2020 4:02 PM CDT) [facility] gist Method Time Signature WBC Count 11.4 (H) 4.0 - 12/12/2020 [facility] 11.0 4:20 PM CDT 10e3/uL RBC Count 4.94 4.40 - 12/12/2020 [facility] 5.90 4:20 PM CDT 10e6/uL Hemoglobin 14.9 13.3 - 12/12/2020 [facility] 17.7 g/dL 4:20 PM CDT Hematocrit 45.0 40.0 - 12/12/2020 [facility] 53.0 % 4:20 PM CDT MCV 91 78 - 100 12/12/2020 [facility] fL 4:20 PM CDT MCH 30.2 26.5 - 12/12/2020 [facility] 33.0 pg 4:20 PM CDT MCHC 33.1 31.5 - 12/12/2020 [facility] 36.5 g/dL 4:20 PM CDT RDW 12.9 10.0 - 12/12/2020 [facility] 15.0 % 4:20 PM CDT Platelet Count 231 150 - 450 12/12/2020 [facility] 10e3/uL 4:20 PM CDT % Neutrophils 71 % 12/12/2020 [facility] 4:20 PM CDT % Lymphocytes 18 % 12/12/2020 [facility] 4:20 PM CDT % Monocytes 9 % 12/12/2020 [facility] 4:20 PM CDT % Eosinophils 2 % 12/12/2020 [facility] 4:20 PM CDT % Basophils 0 % 12/12/2020 [facility] 4:20 PM CDT % Immature 0 % 12/12/2020 [facility] Granulocytes 4:20 PM CDT NRBCs per 100 0 <1 /100 12/12/2020 [facility] WBC 4:20 PM CDT Absolute 8.0 1.6 - 8.3 12/12/2020 [facility] Neutrophils 10e3/uL 4:20 PM CDT Absolute 2.0 0.8 - 5.3 12/12/2020 [facility] Lymphocytes 10e3/uL 4:20 PM CDT Absolute 1.0 0.0 - 1.3 12/12/2020 [facility] Monocytes 10e3/uL 4:20 PM CDT Absolute 0.3 0.0 - 0.7 12/12/2020 [facility] Eosinophils 10e3/uL 4:20 PM CDT Absolute 0.0 0.0 - 0.2 12/12/2020 [facility] Basophils 10e3/uL 4:20 PM CDT Absolute 0.1 (H) <=0.0 12/12/2020 [facility] Immature 10e3/uL 4:20 PM CDT Granulocytes Absolute NRBCs 0.0 10e3/uL 12/12/2020 [facility] 4:20 PM CDT Specimen Anatomical Collection Method Collection Time Receive d Time (Source) Location / / Volume Laterality Blood VENOUS LINE / VAD(CVC, PICC) / 12/12/2020 4:02 PM 11/28 4:16 Unknown Unknown CDT PM CDT Gareth Conway MD LAB - BLOOD ORDERABLES Performing Organization Address City/State/ZIP Code [place] [address] Care Lab [address] Lab (1st floor, no room number) Troponin I (12/12/2020 4:02 PM CDT) P athologist Signature Troponin I <0.015 0.000 - 12/12/2020 [facility] 0.045 ug/L 4:46 PM CDT Comment: The 99th percentile for upper r eference range is 0.045ug/L. Troponin values in the range of 0.045 - 0.120 ug/L may b e associated with risks of adverse clinical events. Specimen Anatomical Collection Method Collection Time Receive d Time (Source) Location / / Volume Laterality Blood VENOUS LINE / VAD(CVC, PICC) / 12/12/2020 4:02 PM 11/28 4:16 Unknown Unknown CDT PM CDT Gareth Conway MD LAB - BLOOD ORDERABLES Performing Organization Address City/State/ZIP Code [place] [address] Care Lab [address] Lab (1st floor, no room number) (ABNORMAL) Basic metabolic panel (12/12/2020 4:02 PM CDT) Patholo gist Method Time Signature Sodium 140 133 - 144 12/12/2020 [facility] mmol/L 4:40 PM CDT Potassium 3.6 3.4 - 5.3 12/12/2020 [facility] mmol/L 4:40 PM CDT Chloride 109 94 - 109 12/12/2020 [facility] mmol/L 4:40 PM CDT Carbon Dioxide 26 20 - 32 12/12/2020 LAB[facility]ORY (CO2) mmol/L 4:40 PM CDT Anion Gap 5 3 - 14 12/12/2020 [facility] mmol/L 4:40 PM CDT Urea Nitrogen 14 7 - 30 12/12/2020 [facility] mg/dL 4:40 PM CDT Creatinine 1.38 (H) 0.66 - 12/12/2020 [facility] 1.25 mg/dL 4:40 PM CDT Calcium 8.8 8.5 - 10.1 12/12/2020 [facility] mg/dL 4:40 PM CDT Glucose 105 (H) 70 - 99 12/12/2020 [facility] mg/dL 4:40 PM CDT GFR Estimate 65 >60 12/12/2020 [facility] mL/min/1.7 4:40 PM CDT 3m2 Comment: As of December 08, 2020, eGFR is ca lculated by the CKD-EPI creatinine equation, without race adjustment. eGFR can be inf luenced by muscle mass, exercise, and diet. The reported eGFR is an estimation only and is only applicable if the renal function is stable. Specimen Anatomical Collection Method Collection Time Receive d Time (Source) Location / / Volume Laterality Blood VENOUS LINE / VAD(CVC, PICC) / 12/12/2020 4:02 PM 11/28 4:16 Unknown Unknown CDT PM CDT Gareth Conway MD LAB - BLOOD ORDERABLES Performing Organization Address City/State/ZIP Code [place] [address] Care Lab [address] Lab (1st floor, no room number) EKG 12 lead (12/12/2020 3:53 PM CDT) [facility] gist Method Time Signature Systolic Blood mmHg RADIOLOGY Pressure RESULTS Diastolic Blood mmHg RADIOLOGY Pressure RESULTS Ventricular Rate 97 BPM RADIOLOGY RESULTS Atrial Rate 97 BPM RADIOLOGY RESULTS MI Interval 188 ms RADIOLOGY RESULTS QRS Duration 78 ms RADIOLOGY RESULTS QT 352 ms RADIOLOGY RESULTS QTc 447 ms RADIOLOGY RESULTS P [place] 30 degrees RADIOLOGY RESULTS R AXIS -12 degrees RADIOLOGY RESULTS T [place] 14 degrees RADIOLOGY RESULTS Interpretation ECG Click View RADIOLOGY Image link RESULTS to view waveform and result Specimen Anatomical Collection Method Collection Time Receive d Time (Source) Location / / Volume Laterality 12/12/2020 3:53 PM 6:42 CDT AM CDT Gareth Conway MD ECG ORDERABLES Performing Organization Address City/State/ZIP Code Phon e Number RADIOLOGY RESULTS documented in this encounter Visit Diagnoses Diagnosis Chest pain, unspecified type Essential hypertension Unspecified essential hypertension Chest pain, unspecified type documented in this encounter Administered Medications Inactive Administered Medications - up to 3 most recent administrations Medication Order MAR Action Action Date Dose Rate Site ketorolac (TORADOL) injection 15 mg Given 12/12/2020 4:45 PM CDT 15 mg 15 mg, Intravenous, ONCE, On [place] 12/12/20 at 1625, For 1 dose, Can cause pain on injection. If ordered intravenously (IV) : administer through a running maintenance fluid over 1 minute followed by a flush. If patient complains of pain on injection, may dilute 15-30 mg in 5 mL and push over 1 to 2 minutes. documented in this encounter Active and Recently Administered Medications Times are shown in CDT. Scheduled Medication Order 12/10/2020 12/11/2020 12/12/2020 ketorolac (TORADOL) injection 15 mg (COMPLETED) 1645 (Given - Provider: Ac Vargas RN - Comment: scanner not charging) 15 mg, Intravenous, ONCE, On [place] 12/12/20 at 1625, For 1 dose, Can cause pain on injection. If ordered intravenously (IV) : administer through a running maintenance fluid over 1 minute followed by a flus h. If patient complains of pain on injec tion, may dilute 15-30 mg in 5 mL and push over 1 to 2 minutes. 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
--- OUTSIDE RECORDS SUMMARY | 2022-03-31 16:53 | XMS_ITS | Encounter Summary ---
:1985 Author Organization [facility] Address [address] [place] [address]. [place] [address] Care Team Providers Name Role Phone [facility]- Encounter Details Date Type Department Care Team Description 04/10/2020 Telephone [facility] Graciela Araiza, Audiology [address] [place] [address] [phone] Social History Tobacco Use Types Packs/Day Years Used Date Smoking Tobacco: Never Pipe Smokeless Tobacco: Never Alcohol Use Standard Drinks/Week Comments Yes 1 (1 standard drink = 0.6 oz pure Alcoho lic Drinks/day: Social alcohol) drinker. 1 every cou ple months. 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 He expressed understanding and stated he would contact his primary care doctor- gave patient clinic fax number. Bora Gonzalez Protection Mgr [place] License #[id number] ILE PIN WORKER documented in this encounter Plan of Treatment Not on filedocumented as of this encounter Visit Diagnoses Not on filedocumented in this encounter Additional Health Concerns Assessment Noted Time PHQ-9 Depression Total Score: 5 03/20/2016 7:18 AM CDT documented as of this encounter Care Teams Radiologist Diagnostic Relationship Specialty Start Date End Date [facility], [facility] And PCP - General 04/30/19 [facility]- [address], [place] [address] documented as of this encounter
--- OUTSIDE RECORDS SUMMARY | 2022-03-31 16:54 | XMS_ITS | Encounter Summary ---
:1985 Author Organization [facility] Address [address] [place] [address] Care Team Providers Name Role Phone Carlos Chapman MD Primary Care Provider [phone] [address] [facility] Unavailable Carlos Chapman MD Unavailable Carlos Chapman MD Unavailable Reason for Referral Diagnostic Imaging MRI - Closed Specialty Diagnoses / Procedures Referred By Contact Refer red To Contact Diagnoses Pain in extremity, unspecified extremity Sensory disturbance Limb weakness History of testicular cancer Davi Presley MD Procedures MR Cervical Spine w/o & w Contrast [address] [address] Referral ID Status Reason Start Date Expiration Date Visits Requ ested Visits Authorized [id number] Closed 12/08/2016 12/08/2017 1 1 Reason for Visit Reason Comments Consult Neuropathy Consultation - Closed Specialty Diagnoses / Procedures Referred By Contact Refer red To Contact Diagnoses Polymyalgia (H) Cisplatin induced neuropathy (H) Carlos Chapman MD [facility] NEUROLOG[facility] DEPT [address] [place] [address] Referral ID Status Reason Start Date Expiration Date Visits Requ ested Visits Authorized [id number] Closed 10/29/2016 10/29/2017 1 1 Encounter Details Date Type Department Care Team Description 12/03/2016 Office Visit Davi Wong, Pain in e xtremity, unspecified extremity (Primary Dx); [facility] Sensory disturbance; [facility] Limb weakn ess; Clinic History of testicular cancer [address] [facility], [address] [place] [address] Social History Tobacco Use Types Packs/Day Years Used Date Smoking Tobacco: Never Smokeless Tobacco: Never Tobacco Cessation: Counseling Given: No Alcohol Use Standard Drinks/Week Comments Yes 0 (1 standard drink = 0.6 oz pure alcoho l) couple drinks per month Sex Assigned at Date Recorded Not on file documented as of this encounter Last Filed Vital Signs Vital Sign Reading Time Taken Comments Blood Pressure 150/95 12/03/2016 1:22 PM CDT Pulse 77 12/03/2016 1:22 PM CDT Temperature - - Respiratory Rate 18 12/03/2016 1:22 PM CDT Oxygen Saturation - - Inhaled Oxygen Concentration - - Weight - - Height - - Body Mass Index - - documented in this encounter Progress Notes Davi Presley MD - 12/03/2016 1:30 PM CDT Images from the original note were not included. 31 y/o male referred for neuropathy Diagnosed with testicular cancer in 1998. Underwent Rx with Cisplatin 6 months and then underwent a surgical procedure that he describes as if might have been on lumbar spine or pelvic but this is speculative. Following this he reports another 6 months of Cisplatin. During his treatment he appreciated numbness, tingling and pain involving his hands and feet and then evolving to involve head to toes. His symptoms have worsened over time and took on new character.He began having problems with gait and dressing. He developed problems with a fullness in his neck that caused choking, trouble swallowing and breathing. He tried Yoga and PT. Ultimately his pain and other symptoms have improved with [facility] (upper C spine[facility] He also reports a stiff neck and urinary control issues. He denies a Lhermitte's phenomenon He reports chronic hearing loss due to his chemotherapy Evaluations since 2013 have included a normal EMG/NCV study at the [facility], Normal Brain MRI, Negative CT neck soft tissue. Nomal or negative lab testing: IEP, Lyme, CK, CRP, B12, AchRAbs, RF, HIV, Treponema pallidum Ab, Hepatitis C Ab, ESR, Cortisol, HBA1C, TSH, CMP, CBC, blood arsenic. He has had low vitamin D levels but is on replacement and was 48 in 08/14. PMHx: Also notable for HTN. He recently stopped lisinopril as felt BP improved with chiro Rx MEDS: Taking? Start Date End Date Provider LT ?? acetaminophen (TYLENOL) 325 MG tablet ??10/23/15 ??-- ??Jose Alfredo Rehman MD ?? Take 2 tablets (650 mg) by mouth every 6 hours as needed ?? alum & mag hydroxide-simethicone (MYLANTA/MAALOX) 200-200-20 MG/5ML SUSP ??08/07/15 ??-- ??Jose Alfredo Rehman MD ?? Take 30 mLs by mouth every 4 hours as needed for indigestion ?? cetirizine HCl 10 MG CAPS ??06/12/16 ??-- ??Carlos Chapman MD ?? Take 1 capsule by mouth daily as needed ?? cholecalciferol (VITAMIN D3) 18339 UNITS capsule ??08/17/16 ??-- ??Carlos Chapman MD ?? Take 1 capsule (50,000 Units) by mouth once a week ?? fluticasone (FLONASE) 50 MCG/ACT spray ??06/03/16 ??-- ??Carlos Chapman MD ?? [place] 1-2 sprays into both nostrils daily ?? fluticasone (FLONASE) 50 MCG/ACT spray ??08/17/16 ??-- ??Carlos Chapman MD ?? [place] 1-2 sprays into both nostrils daily ?? ibuprofen (ADVIL,MOTRIN) 200 MG tablet ??02/10/16 ??-- ??Carlos Chapman MD ?? Take 3 tablets (600 mg) by mouth every 6 hours as needed ?? ibuprofen (ADVIL/MOTRIN) 600 MG tablet ??10/28/16 ??-- ??Carlos Chapman MD ?? TAKE 1 TABLET BY MOUTH EVERY 6 HOURS NEEDED FOR MODERATE PAIN ?? lisinopril (PRINIVIL/ZESTRIL) 20 MG tablet ??08/17/16 ??-- ??Carlos Chapman MD ?? Take 1 tablet (20 mg) by mouth daily ?? medical cannabis oral liquid ??(Patient's own supply. ??Not a prescription) ??-- ??-- ??Carlos Chapman MD ?? medical cannabis oral liquid ??(Patient's own supply. ??Not a prescription) ??-- ??-- ??Carlos Chapman MD ? 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 Does not smoke or use Etoh EXAM: Alert and cooperative HR 77 BP 150/95 CN testing notable to bilateral hearing los to bedside testing. Otherwise CN 2- 12 intact Motor: Normal strength Sensory: Reports patchy decrease pin in fingers, decreased pin to ankles, decreased cold appreciation hands and around ankles sparing the feet. Intact position and vibratory sense Cerebellar and gait are normal DTRs 2+. Toes down IMPRESSION: Hx testicular CA 1998 treated with Cisplatin and surgery (? Pelvic and/or Lumbar spinal) Chronic neuropathic symptoms and pain since Worsening symptoms over past few years affecting function, walking, dressing. Choking sensation Improving with [facility] and medical marijuana Extensive negative testing since 2013 outlined in note above. Has not had cervical MRI Fairly normal neurologic exam except sensory changes PLAN: Cervical MRI. Will call with results ADDENDUM 12/07/16: Cervical MRI normal. Called patient with result. Davi Presley MD ? Dear Dr. Chapman: I saw Ronn Hinkle for neurologic evaluation on 12/03/2016. ??He is a 31-year-old male referred for evaluation of neuropathy, although his history is a bit more complicated than that. ?? He was diagnosed with testicular cancer in 1998. ??He may have had spinal metastases in the lumbar region by his description. ??He underwent a 6 month course of cisplatinum and then had some surgical procedure done and then another course of cisplatinum. ??During and since that therapy, he has had symptoms of neuropathy. ??He reports he has numbness, tingling and pain in his hands and feet. ??In fact, he indicates that these symptoms have evolved and have spread from head to toe. ?? Over the past few years he has gotten worse. ??He has had periods where he has had difficulty walking and dressing. ??He became concerned also because at some point he was having trouble breathing and swallowing. ??He was having a great deal of pain. ?? He reports some neck stiffness but denies a Lhermitte's phenomenon. ??He has had some chronic urinary control issues. ??He has had bilateral hearing loss since his chemotherapy. ?? He is seen in the pain clinic and he has found medical marijuana has greatly helped his pain. ??He has also more recently seen a [facility] who does some form of manipulation of the upper cervical spine and he states he is not choking as much and his sense of weakness and gait dysfunction has significantly improved. ?? Review of his medical record reveals there has been a great deal of testing done relevant to his current problems dating back to 2013. ?? He had a normal EMG and nerve conduction study done at the [facility] in 02/2014. ?? In 02/2016, he had a negative CT scan of the neck soft tissue. ??He also had a negative head MRI scan. ??Laboratory work has included normal or negative serum immunofixation, Lyme, CK, C-reactive protein, acetylcholine receptor antibodies, B12, rheumatoid factor, HIV, a treponemal pallidum antibody, hepatitis C, sedimentation rate, cortisol, hemoglobin A1c, TSH, comprehensive metabolic panel, CBC, and arsenic level. ??He has at times been found to have a low vitamin D level but his vitamin D level in July of this year was 48. His past medical history is otherwise notable for hypertension. ??He was on lisinopril but he stopped that as he felt his blood pressure had improved with his chiropractic treatment. ?? Current medications are vitamin D 50,000 units once a week, Flonase, medical cannabis, ibuprofen, Tylenol, Mylanta. ??He has been prescribed lisinopril but he has discontinued it. ?? He has no medical allergies. 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 ??He does not smoke. ??He does not use alcohol. Examination reveals the patient is alert and cooperative. ??He is valencia and muscular. ??Heart rate is 77. ??Blood pressure 150/95. ??Pupils are equal, round and react well to light. ??Fundi are unremarkable. ??Extraocular motility is full. ??There is no facial weakness or numbness. ??His speech is clear. ??Palate moves in the midline. ??Tongue movements are normal. ??He has decreased hearing bilaterally. ??Motor examination reveals excellent upper and lower extremity strength. ??His sensory examination is notable for intact position sense and vibratory sense. ??He reports a patchy impairment of pinprick involving the fingers and reduction of pinprick to the ankles. ??He reports decreased cold appreciation in his hands and also decreased cold around the ankles but not in the feet. ??Cerebellar function is normal. ??Gait is normal. ??Reflexes are 2+. ??Plantar responses are flexor. IMPRESSION: ?? 1. ??History of testicular cancer treated with cisplatinum. 2. ??Chronic neuropathic symptoms from cisplatinum therapy. 3. ??Somewhat atypical sensory examination. 4. ??Multiple additional complaints including at times trouble walking, dressing, breathing and swallowing. 5. ??Extensive unrevealing workup over the past 2.5 years. PLAN: ??I did reassure him today that his neurologic examination aside from the somewhat atypical sensory findings is unremarkable. ?? For completion, I have recommended a cervical MRI scan. ??I will communicate the results of the cervical MRI scan to him when available. CC: ??Dr. Carlos Chapman documented in this encounter Nursing Notes Nikia Scott MA - 12/03/2016 1:30 PM CDT Chief Complaint Patient presents with ??? Consult Neuropathy Nikia Scott CMA documented in this encounter Plan of Treatment Not on filedocumented as of this encounter Results MR Cervical Spine w/o & w Contrast (12/06/2016 12:00 PM CDT) Anatomical Region Laterality Modality Spine, SUBRAD MR NEURO, UMP MR SPINE Mag netic Resonance Specimen (Source) Anatomical Location Collection Method / Collectio n Time Received Time / Laterality Volume Impressions 12/06/2016 2:01 PM CDT Impression: Normal cervical spine MRI without any ab normal enhancing lesion I have personally reviewed the examinati on and initial interpretation and I agree with the findings. JAE PRATT MD Narrative 12/06/2016 2:01 PM CDT MR CERVICAL SPINE W/O & W CONTRAST 12/06/2016 12:00 PM History: Limb weakness, numbness and marisol n. History of testicular CA, Pain in unspecified limb, Unspecified di sturbances of skin sensation, Other symptoms and signs involving the m usculoskeletal system, Personal history of malignant neoplasm o f testis Additional history from the EMR:Hx testi cular CA 1998 treated with Cisplatin and surgery . Chronic neuropat hic symptoms and pain since. Comparison: Cervical spine MRI from 02/18 and head MRI from 02/19/2014 Technique: Sagittal T1-weighted, sagitta l T2-weighted, sagittal diffusion weighted, axial T2-weighted, a nd axial T2* gradient echo images of the cervical spine were obtain ed without intravenous contrast. Following intravenous administ ration of gadolinium, axial and sagittal T1-weighted images with fat saturation were also obtained. Contrast: 10ml Gadavist Findings: The cervical vertebrae appear normally a ligned. There is no vertebral height loss at any level. There is no di sc height narrowing at any level. No spinal canal stenosis or christoph inal narrowing at any level. There is normal signal within and normal contour of the cervical spinal cord. ??There is no abnormal cont rast enhancement within the cervical spinal cord, thecal sac or vert ebral column. ??No abnormality of the paraspinous soft tissues. Procedure Note Jae Pratt MD - 12/06/2016Formatt ing of this note might be different from the original. MR CERVICAL SPINE W/O & W CONTRAST 017 12:00 PM History: Limb weakness, numbness and marisol n. History of testicular CA, Pain in unspecified limb, Unspecified di sturbances of skin sensation, Other symptoms and signs involving the m usculoskeletal system, Personal history of malignant neoplasm o f testis Additional history from the EMR:Hx testi cular CA 1998 treated with Cisplatin and surgery . Chronic neuropat hic symptoms and pain since. Comparison: Cervical spine MRI from 02/18 and head MRI from 02/19/2014 Technique: Sagittal T1-weighted, sagitta l T2-weighted, sagittal diffusion weighted, axial T2-weighted, a nd axial T2* gradient echo images of the cervical spine were obtain ed without intravenous contrast. Following intravenous administ ration of gadolinium, axial and sagittal T1-weighted images with fat saturation were also obtained. Contrast: 10ml Gadavist Findings: The cervical vertebrae appear normally a ligned. There is no vertebral height loss at any level. There is no di sc height narrowing at any level. No spinal canal stenosis or christoph inal narrowing at any level. There is normal signal within and normal contour of the cervical spinal cord. There is no abnormal contra st enhancement within the cervical spinal cord, thecal sac or vert ebral column. No abnormality of the paraspinous soft tissues. Impression: Normal cervical spine MRI without any ab normal enhancing lesion I have personally reviewed the examinati on and initial interpretation and I agree with the findings. JAE PRATT MD Davi Presley MD IMG MRI ORDERABLES documented in this encounter Visit Diagnoses Diagnosis Pain in extremity, unspecified extremity - Primary Sensory disturbance Disturbance of skin sensation Limb weakness Other musculoskeletal symptoms referable to limbs History of testicular cancer Personal history of malignant neoplasm o f testis Pain in extremity, unspecified extremity Sensory disturbance Disturbance of skin sensation Limb weakness Other musculoskeletal symptoms referable to limbs History of testicular cancer Personal history of malignant neoplasm o f testis documented in this encounter Additional Health Concerns Assessment Noted Time PHQ-9 Depression Total Score: 5 03/20/2016 7:18 AM CDT documented as of this encounter Care Teams Welfare Aide Relationship Specialty Start Date End Date Carlos Chapman PCP - General Family Practice 02/06/14 04/29/19 MD Saw Carlos Chapman PCP - Assigned PCP 06/28/16 08/02/[place] [id number] [address] [address] [address], Clinic Fitness Trainer Competitive Intelligence Manager - 12/12/15 01/21/17 [facility] Clinical Carlos Chapman Assigned PCP 06/28/16 02/24/[place] [id number] [address] [address] documented as of this encounter
--- OUTSIDE RECORDS SUMMARY | 2022-03-31 16:54 | XMS_ITS | Encounter Summary ---
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 (ABNORMAL) Drugs of Abuse 1+ Panel, Urine ([facility] Only) (05/26/2019 11:31 PM PHYSICIAN ASST) [facility] Method Time Signature Amphetamines Urine Screen Screen 05/26/2019 [facility] Negative Negative 11:52 PM [facility] Benzodiazepines Screen Screen 05/26/2019 [facility] Urine Negative Negative 11:52 PM [facility] Opiates Urine Screen Screen 05/26/2019 [facility] Negative Negative 11:52 PM [facility] PCP Urine Screen Screen 05/26/2019 [facility] Negative Negative 11:52 PM [facility] Cannabinoids Urine Screen Screen 05/26/2019 [facility] Negative Negative 11:52 PM [facility] Barbiturates Urine Screen Screen 05/26/2019 [facility] Negative Negative 11:52 PM [facility] Cocaine Urine Screen Screen 05/26/2019 [facility] Negative Negative 11:52 PM [facility] Methadone Urine Screen Screen 05/26/2019 [facility] Negative Negative 11:52 PM [facility] Oxycodone Urine Screen Screen 05/26/2019 [facility] Positive Negative 11:52 PM [facility] (Confirmatio [facility] n available LABORAT[facility] on request) (A) Creatinine, Urine 146.7 mg/dL 05/26/2019 [facility] 11:52 PM [facility] Specimen Anatomical Collection Method Collection Time Receive d Time (Source) Location / / Volume Laterality Urine specimen Non-blood 05/26/2019 11:31 9 (specimen) Collection / PM PHYSICIAN ASST 11:34 PM PHYSICIAN ASST Unknown Narrative [facility] - 05/26/2019 11:52 PM PHYSICIAN ASST Drug ? Screening Threshold Amphetamines ?1000 ng/mL Benzodiazepine ? 200 ng/mL Opiates ?300 ng/mL Phencyclidine ? 25 ng/mL THC Metabolite ?50 ng/mL Barbiturates ? 200 ng/mL Cocaine Metabolite ? 150 ng/mL Methadone ?300 ng/mL Oxycodone ?100 ng/mL Screening results are to be used only fo r medical purposes. Unconfirmed screening results are not to be used for non- medical purposes. Anastacia Katz MD LAB - URINE ORDERABLES Performing Organization Address City/State/ZIP [facility] Ph[place] [address] (ABNORMAL) Comprehensive metabolic panel (05/26/2019 9:56 PM PHYSICIAN ASST) [facility] Method Time Signature Sodium 140 136 - 145 05/26/2019 [facility] mmol/L 10:12 PM [facility] Potassium 3.9 3.5 - 5.0 05/26/2019 [facility] mmol/L 10:12 PM [facility] Chloride 107 98 - 107 05/26/2019 [facility] mmol/L 10:12 PM [facility] Carbon Dioxide 26 22 - 31 05/26/2019 [facility] (CO2) mmol/L 10:12 PM [facility] Anion Gap 7 5 - 18 05/26/2019 [facility] mmol/L 10:12 PM [facility] Glucose 108 70 - 125 05/26/2019 [facility] mg/dL 10:12 PM [facility] Urea Nitrogen 18 8 - 22 05/26/2019 [facility] mg/dL 10:12 PM [facility] Creatinine 1.32 (H) 0.70 - 05/26/2019 [facility] 1.30 10:12 PM [facility] mg/dL [facility] GFR Estimate If >60 >60 05/26/2019 [facility] Black mL/min/1. 10:12 PM [facility] 73m2 [facility] GFR Estimate >60 >60 05/26/2019 [facility] mL/min/1. 10:12 PM [facility] [address] [facility] Bilirubin Total 0.4 0.0 - 1.0 05/26/2019 [facility] mg/dL 10:12 PM [facility] Calcium 9.4 8.5 - 05/26/2019 [facility] 10.5 10:12 PM [facility] mg/dL [facility] Protein Total 7.4 6.0 - 8.0 05/26/2019 [facility] g/dL 10:12 PM [facility] Albumin 3.9 3.5 - 5.0 05/26/2019 [facility] g/dL 10:12 PM [facility] Alkaline 121 (H) 45 - 120 05/26/2019 [facility] Phosphatase U/L 10:12 PM [facility] AST 31 0 - 40 05/26/2019 [facility] U/L 10:12 PM [facility] ALT 61 (H) 0 - 45 05/26/2019 [facility] U/L 10:12 PM [facility] Specimen Anatomical Collection Method Collection Time Receive d Time (Source) Location / / Volume Laterality Blood specimen VAD(CVC, PICC) / 05/26/2019 9:56 PM 9:56 (specimen) Unknown PHYSICIAN ASST PM PHYSICIAN ASST Narrative [facility] - 05/26/2019 10:12 PM PHYSICIAN ASST Fasting Glucose reference range is 70-99 mg/dL per Citizen Of The [place] Diabetes Association (ADA) elmer montalvo. Anastacia Katz MD LAB - BLOOD ORDERABLES Performing Organization Address City/State/ZIP Code Phon e Number [facility] [place] [id number] [place] [address] [place] [address], [facility] (ABNORMAL) CBC with platelets (05/26/2019 9:56 PM PHYSICIAN ASST) [facility] Method Time Signature WBC 12.5 (H) 4.0 - 11.0 05/26/2019 [facility] th/uL 9:59 PM [facility] RBC Count 5.13 4.40 - 05/26/2019 [facility] 6.20 9:59 PM [facility] Hemoglobin 15.6 14.0 - 05/26/2019 [facility] 18.0 g/dL 9:59 PM [facility] Hematocrit 45.7 40.0 - 05/26/2019 [facility] 54.0 % 9:59 PM [facility] MCV 89 80 - 100 05/26/2019 [facility] fL 9:59 PM [facility] MCH 30.4 27.0 - 05/26/2019 [facility] 34.0 pg 9:59 PM [facility] MCHC 34.1 32.0 - 05/26/2019 [facility] 36.0 g/dL 9:59 PM [facility] Y[facility]NE [facility] RDW 12.8 11.0 - 05/26/2019 [facility] 14.5 % 9:59 PM [facility] Platelet Count 246 140 - 440 05/26/2019 [facility]/uL 9:59 PM [facility] Mean Platelet 10.6 8.5 - 12.5 05/26/2019 [facility] Volume fL 9:59 PM [facility] Specimen Anatomical Collection Method Collection Time Receive d Time (Source) Location / / Volume Laterality Blood specimen VAD(CVC, PICC) / 05/26/2019 9:56 PM 9:56 (specimen) Unknown PHYSICIAN ASST PM PHYSICIAN ASST Anastacia Katz MD LAB - BLOOD ORDERABLES Performing Organization Address [facility] Phon [place] [address] [address] [facility] Alcohol ethyl (05/26/2019 9:56 PM PHYSICIAN ASST) Analysis Performed At [facility] Time Signature Alcohol, Blood <10 None detected 05/26/2019 [facility] mg/dL 10:13 PM PHYSICIAN ASST [facility] Comment: None Detected Specimen Anatomical Collection Method Collection Time Receive d Time (Source) Location / / Volume Laterality Blood specimen VAD(CVC, PICC) / 05/26/2019 9:56 PM 9:56 (specimen) Unknown PHYSICIAN ASST PM PHYSICIAN ASST Anastacia Katz MD LAB - BLOOD ORDERABLES Performing Organization Address [facility] [place] [address] [address] [facility] documented in this encounter Visit Diagnoses Diagnosis Suicidal ideation Cephalalgia Headache Insomnia Insomnia, unspecified documented in this encounter Additional Health Concerns Assessment Noted Time PHQ-9 Depression Total Score: 5 03/20/2016 7:18 AM CDT documented as of this encounter Care Teams Fish Rod Maker Relationship Specialty Start Date End Date [facility] And PCP - General 04/30/19 [facility] [address] [place] [address] Carlos Chapman MD Assigned PCP 06/28/16 02/24/20 [id number] [address] [id number] documented as of this encounter
--- OUTSIDE RECORDS SUMMARY | 2022-03-31 16:54 | XMS_ITS | Encounter Summary ---
:1985 Author Organization [place] Address [address] [facility] [place] [address] Care Team Providers Name Role Phone Carlos Chapman MD Primary Care Provider [phone] Aida Hdz LGSW Unavailable Carlos Chapman MD Unavailable Carlos Chapman MD Unavailable Reason for Referral Consultation - Closed Specialty Diagnoses / Procedures Referred By Contact Refer red To Contact Diagnoses Polymyalgia (H) Cisplatin induced neuropathy (H) Carlos Chapman MD [facility] NEUROLOGY DEPT [address] [place] [facility] [place] [address] Referral ID Status Reason Start Date Expiration Date Visits Requ ested Visits Authorized [id number] Closed 10/29/2016 10/29/2017 1 1 Reason for Visit Reason Onset Date Comments Patient/info Update 10/28/2016 Encounter Details Date Type Department Care Team Description [facility] [place] [id number] [place] [address] [place] [place], [place] [id number] [phone] Social History Tobacco Use Types Packs/Day Years Used Date Smoking Tobacco: Never Smokeless Tobacco: Never Alcohol Use Standard Drinks/Week Comments Yes 0 (1 standard drink = 0.6 oz pure alcoho l) couple drinks per month Sex Assigned at Date Recorded Not on file documented as of this encounter Miscellaneous Notes Telephone Encounter - Yaritza Blackwood - 10/30/2016 1:32 PM CDT LVM with phone number for neurology. Salvatore Blackwood Adult Literacy Teacher 10/30/16 Telephone Encounter - Carlos Chapman MD - 10/29/2016 8:02 PM CDT Given complexity of his case, will refer to [place]. Carlos Chapman MD Telephone Encounter - Yaritza Blackwood - 10/28/2016 2:50 PM CDT Spoke with pt, he would like a referral to the Neurologist, please place order. Salvatore Blackwood Adult Literacy Teacher 10/28/16 Telephone Encounter - Carlos Chapman MD - 10/28/2016 10:50 AM CDT Would recommend f/u with neuro or pain. Carlos Chapman MD Telephone Encounter - Devin Arcos RN - 10/28/2016 9:36 AM CDT Patient calls to report: My body is taking a crap. Sliding down hill the last 2 weeks. I do gentle yoga to my capability. But capability has shut down. Things are cramping up. States he is not sure if he should see Dr. Chapman or ? It is getting really difficult for me to do yoga. I cannot always get up off the floor. My legs don't want to work. My hands are worse than they have been. 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 Now it acts up when I am not doing anything. Has appointment with chiropractor tomorrow. I feel 2 spots in my spine that feel inflamed. 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 I feel an inflammation down my arms hands, wrists, finger tips Middle of hips down legs. When I touch my calves will be rock hard when I have pain. My forearms and hands get rock hard and they twist like a kimberly horse type pain in hands and feet. It is normal that I have this stuff but right now it is a 10 at times. Trouble buttoning pants. And feet - I have a hard time walking. Please advise. 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 documented in this encounter Additional Health Concerns Assessment Noted Time PHQ-9 Depression Total Score: 5 03/20/2016 7:18 AM CDT documented as of this encounter Care Teams Submarine Element Coordinator Relationship Specialty Start Date End Date Carlos Chapman PCP - General Family Practice 02/06/14 04/29/19 MD Saw Carlos Chapman PCP - Assigned PCP 06/28/16 08/02/[place] [id number] [place] [address] Aida Hdz, Clinic Leaf Blender Mysql Database Administrator - 12/12/15 01/21/17 [facility] Clinical Carlos Chapman Assigned PCP 06/28/16 02/24/[place] [id number] [address] [id number] documented as of this encounter
--- OUTSIDE RECORDS SUMMARY | 2022-03-31 16:54 | XMS_ITS | Encounter Summary ---
:1985 Author Organization [place] Address [address] [place] [address] Care Team Providers Name Role Phone Carlos Chapman MD Primary Care Provider [phone] Aida Hdz LGSW Unavailable Carlos Chapman MD Unavailable Carlos Chapman MD Unavailable Encounter Details Date Type Department Care Team Description 10/05/2016 Office Visit [facility] Audiology [place], Sensorineural hearing [address] [facility] Bora Jacobs loss, bilateral 4th Floor [address] [facility] (Primary Dx) [place] [address] [phone] Social History Tobacco Use Types Packs/Day Years Used Date Smoking Tobacco: Never Smokeless Tobacco: Never Alcohol Use Standard Drinks/Week Comments Yes 0 (1 standard drink = 0.6 oz pure alcoho l) couple drinks per month Sex Assigned at Date Recorded Not on file documented as of this encounter Progress Notes Arlene Araiza AuD - 10/05/2016 1:00 PM CDT AUDIOLOGY REPORT BACKGROUND INFORMATION: Ronn Hinkle was seen in the Audiology Clinic at the [facility] [place] on 10/05/2016 for follow-up. The patient was seen at an outside clinic and results revealed normal hearing sloping to profound essentially sensorineural hearing loss bilaterally. The patient was fit with binaural ReSound Linx2 5 RITE hearing aids on 08/25/16. The patient reports that the left one has been intermittently working since he was fit with it and that the left earmold does not feel as secure in his ear as the right one. TEST RESULTS AND PROCEDURES: A first follow-up was performed. Given that Nathan was still within his trial period, two new hearing aids were ordered and programmed to previous settings in hopes that the new hearing aids would not have an intermittency issues. The left earmold canal portion was buffed down slightly. He reported that it just didn't seem to sit as deep in his ear as the right earmold. Otoscopy revealed clear ear canals bilaterally, a left ear impression was taken without incident and a new left earmold will be ordered. SUMMARY AND RECOMMENDATIONS: A hearing aid check was performed today and the patient reports that hewill likely keep both hearing aids. It was discussed that he is near the end of the trial period so he would need to decide within about a week if he does not want them, he reports that he likely will keep both hearing aids. A new set of ReSound Linx2 5 RITE hearing aids were fit (programmed to previous setting), the old pair will be returned. A new left earmold will be sent to the patient. He will contact the clinic within the week if he decides he does not want to keep these hearing aids. It is recommended that he return roughly every 6 months for a hearing aid check to be sure the hearing aids are functioning well. Call this clinic with questions regarding today???s visit. Bora Gonzalez [facility] [place] License #[id number] documented in this encounter Plan of Treatment Not on filedocumented as of this encounter Procedures Procedure Name Priority Date/Time Associated Diagnosis [facility] ASSESSMENT FOR Routine 10/05/2016 1:46 PM Sensorineural he aring HEARING AID CDT loss, bilateral documented in this encounter Visit Diagnoses Diagnosis Sensorineural hearing loss, bilateral - Primary documented in this encounter Additional Health Concerns Assessment Noted Time PHQ-9 Depression Total Score: 5 03/20/2016 7:18 AM CDT documented as of this encounter Care Teams Workforce Development Specialist Relationship Specialty Start Date End Date Carlos Chapman PCP - General Family Practice 02/06/14 04/29/19 MD Saw Carlos Chapman PCP - Assigned PCP 06/28/16 08/02/[place] [id number] [address] [id number] Aida Hdz, Clinic Apartment Coordinator Electric Switch Tester - 12/12/15 01/21/17 [facility] Clinical Carlos Chapman Assigned PCP 06/28/16 02/24/[place] [id number] BRUCE DELUCA [id number] documented as of this encounter
--- OUTSIDE RECORDS SUMMARY | 2022-03-31 16:54 | XMS_ITS | Encounter Summary ---
:1985 Author Organization [place] Address [address] [facility] [place] [address] Care Team Providers Name Role Phone Carlos Chapman MD Primary Care Provider [phone] Aida Hdz Unavailable Carlos Chapman MD Unavailable Carlos Chapman MD Unavailable Reason for Visit Reason Onset Date Comments Panel Management 09/01/2016 Encounter Details Date Type Department Care Team Description 09/01/2016 Telephone [facility] Carlos Chapman, Panel Management Anjel BAEZA [address] [place] [address] [place] [address] [phone] Social History Tobacco Use Types Packs/Day Years Used Date Smoking Tobacco: Never Smokeless Tobacco: Never Alcohol Use Standard Drinks/Week Comments Yes 0 (1 standard drink = 0.6 oz pure alcoho l) couple drinks per month Sex Assigned at Date Recorded Not on file documented as of this encounter Miscellaneous Notes Telephone Encounter - Kacie Hardy CMA - 09/01/2016 2:48 PM CDT Panel Management Review Patient has the following on his problem list: Hypertension Last three blood pressure readings: BP Readings from Last 3 Encounters: 08/04/16 (!) 136/98 06/22/16 135/79 06/03/16 136/88 Blood pressure: FAILED HTN Guidelines: Age 18-59 BP range: Less than 140/90 Age 60-85 with Diabetes: Less than 140/90 Age 60-85 without Diabetes: less than 150/90 Composite cancer screening Chart review shows that this patient is due/due soon for the following None Summary: Patient is due/failing the following: BP CHECK Action needed: Patient needs office visit for BLOOD PRESSURE. Type of outreach: Phone, spoke to patient. Patient has a office visit appointment for his blood pressure on 09/02/16. Questions for provider review: None Kacie Hardy CMA Chart routed to Provider . documented in this encounter Plan of Treatment Not on filedocumented as of this encounter Visit Diagnoses Not on filedocumented in this encounter Additional Health Concerns Assessment Noted Time PHQ-9 Depression Total Score: 5 03/20/2016 7:18 AM CDT documented as of this encounter Care Teams [place] Neck Whipper Relationship Specialty Start Date End Date Carlos Chapman PCP - General Family Practice 02/06/14 04/29/19 MD Saw Carlos Chapman PCP - Assigned PCP 06/28/16 08/02/[place] [id number] [address]UCA [id number] Aida Hdz, Clinic Mall Plant Caretaker World Designer - 12/12/15 01/21/17 [facility] Clinical Carlos Chapman Assigned PCP 06/28/16 02/24/20 [place] [id number] BRUCE DELUCA [id number] documented as of this encounter
--- OUTSIDE RECORDS SUMMARY | 2022-03-31 16:54 | XMS_ITS | Encounter Summary ---
:1985 Author Organization [place] Address [address] [facility] [place] [address] Care Team Providers Name Role Phone Carlos Chapman MD Primary Care Provider [phone] Carlos Chapman MD Unavailable Carlos Chapman MD Unavailable Reason for Visit Reason Comments Letter Request Hypertension *-*INCOMING RECORDS*-* Needs (2) years of medical r ecords. Encounter Details Date Type Department Care Team Description 02/05/2017 Office Visit [facility] Carlos Chapman Benign es sential hypertension (Primary Dx); Clinic Anjel Spring MD Cisplatin induced neuropathy (H) [place] [address] [facility], [address] [place] [id number] Social History Tobacco Use Types Packs/Day Years Used Date Smoking Tobacco: Light Smoker Pipe Smokeless Tobacco: Never Alcohol Use Standard Drinks/Week Comments Yes 0 (1 standard drink = 0.6 oz pure alcoho l) couple drinks per month Sex Assigned at Date Recorded Not on file documented as of this encounter Last Filed Vital Signs Vital Sign Reading Time Taken Comments Blood Pressure 154/104 02/05/2017 2:53 PM CDT Pulse 104 02/05/2017 1:45 PM CDT Temperature 36.6 ??C (97.9 ??F) 02/05/2017 1:45 PM CDT Respiratory Rate 20 02/05/2017 1:45 PM CDT Oxygen Saturation 98% 02/05/2017 1:45 PM CDT Inhaled Oxygen Concentration - - Weight 90.9 kg (200 lb 6.4 oz) 02/05/2017 1:45 PM CDT Height - - Body Mass Index 32.35 09/02/2016 7:46 AM CDT documented in this encounter Progress Notes Carlos Chapman MD - 02/05/2017 1:40 PM CDT HPI SUBJECTIVE: Ronn Hinkle is a 31 year old male who presents to clinic today for the following health issues: Hypertension Follow-up ?? Outpatient blood pressures are not being checked. ?? Low Salt Diet: no added salt ?? Amount of exercise or physical activity: 6-7 days/week for an average of greater than 60 minutes ?? Problems taking medications regularly: No ?? Medication side effects: none Diet: regular (no restrictions) Still having lot of stress. Issues with ex-, issues with child support, increasing legal issues. Needing letter for court, documenting disability Is also seeing neurologist. Also advised to get information from pain clinic, P. Can do basic tasks, but not in long stretches. Can mow lawn, for example, but not for more than 15 minutes at time. Needing documentation for medical issues. Has had OT, PT, pain clinic. Did not take BP medication today, has been checking at home. Has been OK. Is resistent to using medication, feels he can control things with lifestyle change. Review of Systems Constitutional: Negative. Respiratory: Negative. Cardiovascular: Negative. Musculoskeletal: Positive for joint pain. Neurological: Positive for tingling. Negative for focal weakness and seizures. Physical Exam Constitutional: He is oriented to person, place, and time and well-developed, well-nourished, and inno distress. Eyes: Conjunctivae and EOM are normal. Cardiovascular: Normal rate, regular rhythm and normal heart sounds. Pulmonary/Chest: Effort normal and breath sounds normal. Musculoskeletal: He exhibits no edema. Neurological: He is alert and oriented to person, place, and time. Skin: Skin is warm and dry. Vitals reviewed. (I10) Benign essential hypertension (primary encounter diagnosis) Comment: willing to try, this is less likely to to cause issues Plan: chlorthalidone (HYGROTON) 25 MG tablet (G62.0) Cisplatin induced neuropathy (H) Comment: Plan: following up on this. RTC in Carlos Chapman MD documented in this encounter Nursing Notes Kacie Hardy CMA - 02/05/2017 1:40 PM CDT Chief Complaint Patient presents with ??? Letter Request ??? Hypertension ??? *-*INCOMING RECORDS*-* Needs (2) years of medical records. Initial BP (!) 144/100 (BP Location: Right arm, Patient Position: Chair, Cuff Size: Adult Regular) Pulse 104 Temp 97.9 ??F (36.6 ??C) (Oral) Resp 20 Wt 200 lb 6.4 oz (90.9 kg) SpO2 98% BMI 32.35 kg/m2 Estimated body mass index is 32.35 kg/(m^2) as calculated from the following: Height as of 09/02/16: 5' 6 (1.676 m). Weight as of this encounter: 200 lb 6.4 oz (90.9 kg). BP completed using cuff size regular right arm. 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
--- OUTSIDE RECORDS SUMMARY | 2022-03-31 16:54 | XMS_ITS | Encounter Summary ---
:1985 Author Organization [place] Address [facility] [place] [address] Care Team Providers Name Role Phone Carlos Chapman MD Primary Care Provider [phone] Carlos Chapman MD Unavailable Carlos Chapman MD Unavailable Reason for Visit Reason Comments Urgent Care Eye Problem pt is here for a possible FB in his left eye - he was picking of sticks Encounter Details Date Type Department Care Team Description 01/23/2017 Office Visit [facility] Mariana Ervin Corneal abrasion, Urgent Care Therese Swenson PA-C left, initial [address] [facility] encounter ([facility] [place] [address] [address]) [address] [place] [address] [phone] Social History Tobacco Use Types Packs/Day Years Used Date Smoking Tobacco: Never Smokeless Tobacco: Never Alcohol Use Standard Drinks/Week Comments Yes 0 (1 standard drink = 0.6 oz pure alcoho l) couple drinks per month Sex Assigned at Date Recorded Not on file documented as of this encounter Last Filed Vital Signs Vital Sign Reading Time Taken Comments Blood Pressure 128/84 01/23/2017 4:43 PM CDT Pulse - - Temperature 36.7 ??C (98 ??F) 01/23/2017 4:43 PM CDT Respiratory Rate 16 01/23/2017 4:43 PM CDT Oxygen Saturation 98% 01/23/2017 4:43 PM CDT Inhaled Oxygen Concentration - - Weight 90.7 kg (200 lb) 01/23/2017 4:43 PM CDT Height - - Body Mass Index 32.28 09/02/2016 7:46 AM CDT documented in this encounter Progress Notes Mariana Ervin PA-C - 01/23/2017 4:35 PM CDT SUBJECTIVE: The patient suffered a left corneal abrasion 1 hours ago. Mechanism of injury: picking up sticks and poked eye. Vision fine. Watering eye. . OBJECTIVE: He appears well, vitals are normal. Corneal abrasion noted left, lower eye with no FBnoted. INDIO, fundi normal. EOMI. assessment/plan: (S05.02XA) Corneal abrasion, left, initial encounter (primary encounter diagnosis) Comment: Plan: erythromycin (ROMYCIN) ophthalmic ointment Med as directed and should improve in next 24-48 hours. FU with specialist physicians if not improved or if sx worsens. documented in this encounter Nursing Notes Polly Bynum CMA - 01/23/2017 4:35 PM CDT Ronn Hinkle is a 31 year old male. Chief Complaint Patient presents with ??? Urgent Care ??? Eye Problem pt is here for a possible FB in his left eye - he was picking of sticks Initial BP 128/84 (BP Location: Right arm, Cuff Size: Adult Large) Temp 98 ??F (36.7 ??C) (Oral) Resp 16 Wt 200 lb (90.7 kg) SpO2 98% BMI 32.28 kg/m2 Estimated body mass index is 32.28 kg/(m^2) as calculated from the following: Height as of 17: 5' 6 (1.676 m). Weight as of this encounter: 200 lb (90.7 kg). Medication Reconciliation: complete Questioned patient about current smoking habits. Pt. has never smoked. Polly Bynum CMA documented in this encounter Plan of Treatment Not on filedocumented as of this encounter Visit Diagnoses Diagnosis Corneal abrasion, left, initial encounte r - Primary documented in this encounter Additional Health Concerns Assessment Noted Time PHQ-9 Depression Total Score: 5 03/20/2016 7:18 AM CDT documented as of this encounter Care Teams Humanities And Languages Professor Relationship Specialty Start Date End Date Carlos Chapman MD PCP - General Family Practice 02/06/14 04/29/19 Carlos Chapman MD PCP - Assigned PCP 06/28/16 08/02/18 [id number] [place] [address] [id number] Carlos Chapman MD Assigned PCP 06/28/16 02/24/20 [id number] BR[place] DELUCA [id number] documented as of this encounter
--- OUTSIDE RECORDS SUMMARY | 2022-03-31 16:54 | XMS_ITS | Encounter Summary ---
:1985 Author Organization [place] Address [address] [place] [address] Care Team Providers Name Role Phone Carlos Chapman MD Primary Care Provider [phone] Aida Hdz [facility] Unavailable Carlos Chapman MD Unavailable Carlos Chapman MD Unavailable Reason for Visit Reason Comments Clinic Care Coordination - Follow-up ccsw Encounter Details Date Type Department Care Team Description 01/15/2017 Care Coordination [facility] Carlos Chapman [facility] Care Care Coordination MD Saw Coordination - [address] [place] [id number] [place] [address] Follow-up ( ccsw) [place] [address] Social History Tobacco Use Types Packs/Day Years Used Date Smoking Tobacco: Never Smokeless Tobacco: Never Alcohol Use Standard Drinks/Week Comments Yes 0 (1 standard drink = 0.6 oz pure alcoho l) couple drinks per month Sex Assigned at Date Recorded Not on file documented as of this encounter Progress Notes Aida Hdz - 01/22/2017 9:19 AM CDT Clinic Care Coordination Contact Care Team Conversations Follow up with the patient about his RECREATION DIRECTOR services and asked if he has called any other agencies. Pt states he hasnt because he has been feeling better over the last month. Reports a combination of the cannabis oil, meditation, yoga, relaxation, his hot tub, and lastly a chiropractic approach called Nucca have all contributed to feeling better, more allined, and more aware of his body. Pt spoke at length about the Nucca procedure and states he will be continuing to see his chiropractor to continue with the Nucca treatments. No ongoing concerns identified at this time. PLAN: Encouraged the pt to outreach if concerns arise Pt will outreach as needed CCSW will not continue to follow Aida Hdz Social Work Rotary Drier Operator, [facility] Clinics: [facility] P:[phone]/ Signed January 22, 2017 Aida Hdz - 01/15/2017 10:26 AM CDT Clinic Care Coordination Contact [facility] Clinical Data: follow up RECREATION DIRECTOR services Outreach attempted x 1. Left message on CBIT A/S with call back information and requested return call. Plan: design coordinator will try again in 1-2 weeks. Aida Hdz Social Work Rotary Drier Operator, [facility] Clinics: [facility] P:[phone] / Signed January 15, 2017 documented in this encounter Plan of Treatment Not on filedocumented as of this encounter Visit Diagnoses Not on filedocumented in this encounter Additional Health Concerns Assessment Noted Time PHQ-9 Depression Total Score: 5 03/20/2016 7:18 AM CDT documented as of this encounter Care Teams Work Force Advisor Relationship Specialty Start Date End Date Carlos Chapman PCP - General Family Practice 02/06/14 04/29/19 MD Saw Carlos Chapman PCP - Assigned PCP 06/28/16 08/02/18 [place] [id number] [place] [address] Aida Hdz, Clinic Rotary Drier Operator Cycle Repairer - 12/12/15 01/21/17 [facility] Clinical Carlos Chapman Assigned PCP 06/28/16 02/24/[place] [id number] [place] [id number] documented as of this encounter
--- OUTSIDE RECORDS SUMMARY | 2022-03-31 16:54 | XMS_ITS | Encounter Summary ---
:1985 Author Organization [place] Address [address] [place] [address] Care Team Providers Name Role Phone Carlos Chapman MD Primary Care Provider [phone] Aida Hdz LGSW Unavailable Carlos Chapman MD Unavailable Carlos Chapman MD Unavailable Encounter Details Date Type Department Care Team Description 10/01/2016 Telephone [facility] Audiology Arlene Araiza, [address] [facility] 4th Floor [address] [place] [phone] [place] [address] (Wo rk) Social History Tobacco Use Types Packs/Day Years Used Date Smoking Tobacco: Never Smokeless Tobacco: Never Alcohol Use Standard Drinks/Week Comments Yes 0 (1 standard drink = 0.6 oz pure alcoho l) couple drinks per month Sex Assigned at Date Recorded Not on file documented as of this encounter Miscellaneous Notes Telephone Encounter - Arlene Araiza AuD - 10/01/2016 11:37 AM CDT Spoke with patient. He stated that the left one is making some funny noises and feels that it is intermittent. Let him know that we have the other hearing aids in the clinic and so are happy to switch them out on Thursday 10/05. [employer] Assistant Principal [place] License #[id number] Telephone Encounter - Arlene Araiza AuD - 10/01/2016 11:37 AM CDT ----- Message from Bora Callaway sent at 10/01/2016 10:12 AM CDT ----- Regarding: FW: Teodora Pt Contact: ----- Message ----- From: Phuong Torres Sent: 10/01/2016 10:00 AM To: Audiology Adult Audiologists- Subject: Teodora Pt Enma, Pt wanted to schedule appt to switch out POPE he had received. Called over to [facility] and they stated to schedule HCP, and will give Pt a call back if POPE are not in. Pt can be reached at [phone]. Okay to [facility]. Thank you! [facility] documented in this encounter Plan of Treatment Not on filedocumented as of this encounter Visit Diagnoses Not on filedocumented in this encounter Additional Health Concerns Assessment Noted Time PHQ-9 Depression Total Score: 5 03/20/2016 7:18 AM CDT documented as of this encounter Care Teams Change Consultant Relationship Specialty Start Date End Date Carlos Chapman PCP - General Family Practice 02/06/14 04/29/19 MD Saw Carlos Chapman PCP - Assigned PCP 06/28/16 08/02/18 [place] [id number] [place] [address] Aida Hdz, Clinic Wood Turning Lathe Operator Warehouse Representative - 12/12/15 01/21/17 [facility] Clinical Carlos Chapman Assigned PCP 06/28/16 02/24/[place] [id number] [address], [place] [address] documented as of this encounter
--- OUTSIDE RECORDS SUMMARY | 2022-03-31 16:54 | XMS_ITS | Encounter Summary ---
:1985 Author Organization [place] Address [address] [place] [address] Care Team Providers Name Role Phone Carlos Chapman MD Primary Care Provider [phone] Carlos Chapman MD Unavailable Carlos Chapman MD Unavailable Reason for Visit Reason Comments Consult discuss care plan for future with therapy Encounter Details Date Type Department Care Team Description 02/17/2017 Office Visit [facility] Carlos Chapman (H) (Primary Dx); Clinic Anjel Spring MD Benign essential hypertension; [place] [address] [address] Cisplatin induced neuropathy (H) [facility], [address] [place] [address] [place], [place] [phone] (Wo rk) [address] [phone] Social History Tobacco Use Types Packs/Day Years Used Date Smoking Tobacco: Former Pipe Smokeless Tobacco: Never Alcohol Use Standard Drinks/Week Comments No 0 (1 standard drink = 0.6 oz pure alcoho l) Sex Assigned at Date Recorded Not on file documented as of this encounter Last Filed Vital Signs Vital Sign Reading Time Taken Comments Blood Pressure 142/110 02/17/2017 9:19 AM CDT Pulse 96 02/17/2017 9:19 AM CDT Temperature 36.7 ??C (98.1 ??F) 02/17/2017 9:19 AM CDT Respiratory Rate 20 02/17/2017 9:19 AM CDT Oxygen Saturation 97% 02/17/2017 9:19 AM CDT Inhaled Oxygen Concentration - - Weight 85.9 kg (189 lb 6.4 oz) 02/17/2017 9:19 AM CDT Height - - Body Mass Index 30.57 09/02/2016 7:46 AM CDT documented in this encounter Progress Notes Carlos Chapman MD - 02/17/2017 9:00 AM CDT HPI SUBJECTIVE: Ronn Hinkle is a 31 year old male who presents to clinic today for the following health issues: Consult Discuss therapy and care plan Working to consoladate records. Brings in log of PT/[facility] records. [facility] and getting NUCCA therapy. Finding this very helpful, more able to relax, moveand breath better. Feels this helped him drain fluid from his face, head, neck. Cares include lots of meditation, breathing exercises, yoga, frequent hot tub. Finding using these techniques to be very helpful is maintaining moderate level of functioning. Involved with psychotherapy. Using cannabis less recently, finding it less necessary. Lots of stress, still an issue with ex- and child custody. Working on improving diet. Seen with FARZANEH Werner. Has not yet had a chance to hop picker BP medication. Review of Systems Constitutional: Negative. HENT: Negative. Eyes: Negative. Respiratory: Negative. Cardiovascular: Negative. Musculoskeletal: Positive for back pain and joint pain. Neurological: Positive for sensory change. Negative for focal weakness. Physical Exam Constitutional: He is oriented to person, place, and time and well-developed, well-nourished, and inno distress. Neurological: He is alert and oriented to person, place, and time. Skin: Skin is warm and dry. Vitals reviewed. 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 Greater than 50% of this 40 minute visit spent in counseling and coordination of care. Topics discussed included: outside care, records review. Carlos Chapman MD documented in this encounter Nursing Notes Allison Bentley CMA - 02/17/2017 9:00 AM CDT Chief Complaint Patient presents with ??? Consult discuss care plan for future with therapy Initial BP (!) 142/110 Pulse 96 Temp 98.1 ??F (36.7 ??C) (Oral) Resp 20 Wt 189 lb 6.4 oz (85.9 kg) SpO2 97% BMI 30.57 kg/m2 Estimated body mass index is 30.57 kg/(m^2) as calculated from the following: Height as of 09/02/16: 5' 6 (1.676 m). Weight as of this encounter: 189 lb 6.4 oz (85.9 kg). 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
--- OUTSIDE RECORDS SUMMARY | 2022-03-31 16:54 | XMS_ITS | Encounter Summary ---
:1985 Author Organization [place] Address [address] [facility] [place] [address] Care Team Providers Name Role Phone Carlos Chapman MD Primary Care Provider [phone] Aida Hdz LGSW Unavailable Carlos Chapman MD Unavailable Carlos Chapman MD Unavailable Reason for Visit Reason Onset Date Comments Patient Request for Note/Letter 10/21/2016 Driving- child support Encounter Details Date Type Department Care Team Description 10/21/2016 Telephone [facility] Carlos Chapman Patient R equest for Clinic Anjel Spring MD Note/Letter [facility], [address] AUNG G[place] (Driving-child [address] [place] [phone] support) [place], [place] [phone] (Wo rk) [address] [phone] Social History Tobacco Use Types Packs/Day Years Used Date Smoking Tobacco: Never Smokeless Tobacco: Never Alcohol Use Standard Drinks/Week Comments Yes 0 (1 standard drink = 0.6 oz pure alcoho l) couple drinks per month Sex Assigned at Date Recorded Not on file documented as of this encounter Miscellaneous Notes Telephone Encounter - Nagi Hall - 10/21/2016 2:20 PM CDT Pt did cloth picker note at front man. Telephone Encounter - Carlos Chapman MD - 10/21/2016 12:00 PM CDT Letter signed. Carlos Chapman MD Telephone Encounter - Margareth Devries RN - 10/21/2016 11:55 AM CDT Patient needs an updated letter again for his driving to give to his child support. It sounds like he is going to need this letter every 6 months. Letter copy and pasted from previous letter. Placed inDr. Ari's in-basket for signature. Patient will stop by the clinic this afternoon to cloth picker letter. Margareth Devries RN documented in this encounter Plan of Treatment Not on filedocumented as of this encounter Visit Diagnoses Not on filedocumented in this encounter Additional Health Concerns Assessment Noted Time PHQ-9 Depression Total Score: 5 03/20/2016 7:18 AM CDT documented as of this encounter Care Teams Hob Machine Operator Relationship Specialty Start Date End Date Carlos Chapman PCP - General Family Practice 02/06/14 04/29/19 MD Saw Carlos Chapman PCP - Assigned PCP 06/28/16 08/02/18 [place] [id number] [place] [id number] Aida Hdz, Clinic Research Tech Interventional Pain Physician - 12/12/15 01/21/17 [facility] Clinical Carlos Chapman Assigned PCP 06/28/16 02/24/20 [place] [address] [place] [id number] documented as of this encounter
--- OUTSIDE RECORDS SUMMARY | 2022-03-31 16:54 | XMS_ITS | Encounter Summary ---
:1985 Author Organization [place] Address [address] [place] [address]. [place] [address] Care Team Providers Name Role Phone Carlos Chapman MD Primary Care Provider [phone] Carlos Chapman MD Unavailable Carlos Chapman MD Unavailable Reason for Visit Reason Onset Date Comments Panel Management 03/26/2017 Encounter Details Date Type Department Care Team Description 03/26/2017 Telephone [facility] Carlos Chapman, Panel Management Anjel BAEZA [address] [place] [address] [place] [address] [place] [address] [phone] Social History Tobacco Use Types Packs/Day Years Used Date Smoking Tobacco: Former Pipe Smokeless Tobacco: Never Alcohol Use Standard Drinks/Week Comments No 0 (1 standard drink = 0.6 oz pure alcoho l) Sex Assigned at Date Recorded Not on file documented as of this encounter Miscellaneous Notes Telephone Encounter - Kacie Hardy CMA - 05/10/2017 2:43 PM CST Called patient. Patient goes somewhere else for his care. Kacie Hardy CMA CASTER Telephone Encounter - Kacie Hardy CMA - 03/26/2017 10:21 AM CDT Panel Management Review Patient has the following on his problem list: Hypertension Last three blood pressure readings: BP Readings from Last 3 Encounters: 02/17/17 (!) 142/110 02/05/17 (!) 154/104 01/23/17 128/84 Blood pressure: FAILED HTN Guidelines: Age 18-59 BP range: Less than 140/90 Age 60-85 with Diabetes: Less than 140/90 Age 60-85 without Diabetes: less than 150/90 Composite cancer screening Chart review shows that this patient is due/due soon for the following None Summary: Patient is due/failing the following: BP CHECK Action needed: Patient needs nurse only BLOOD PRESSURE check appointment. Type of outreach: Phone, spoke to patient. patient goes somewhere else for his care. Questions for provider review: None Kacie Hardy CMA Chart routed to Provider . CASTER documented in this encounter Plan of Treatment Not on filedocumented as of this encounter Visit Diagnoses Not on filedocumented in this encounter Additional Health Concerns Assessment Noted Time PHQ-9 Depression Total Score: 5 03/20/2016 7:18 AM CDT documented as of this encounter Care Teams Recreation Facilities Supervisor Relationship Specialty Start Date End Date Carlos Chapman MD PCP - General Family Practice 02/06/14 04/29/19 Carlos Chapman MD PCP - Assigned PCP 06/28/16 08/02/18 [id number] [address] [id number] Carlos Chapman MD Assigned PCP 06/28/16 02/24/20 [id number] BR[address]CA [id number] documented as of this encounter
--- OUTSIDE RECORDS SUMMARY | 2022-03-31 16:54 | XMS_ITS | Encounter Summary ---
:1985 Author Organization [place] Address [address] [place] [address]. [place] [address] Care Team Providers Name Role Phone Carlos Chapman MD Primary Care Provider [phone] Carlos Chapman MD Unavailable Carlos Chapman MD Unavailable Reason for Visit Reason Comments Clinic Care Coordination - Follow-up ccsw Encounter Details Date Type Department Care Team Description 02/15/2017 Care Coordination [facility] Carlos Chapman Care Care Coordination MD Saw Coordination - [address] [place] [id number] [place] [address] Follow-up ( ccsw) [place] [address] Social History Tobacco Use Types Packs/Day Years Used Date Smoking Tobacco: Light Smoker Pipe Smokeless Tobacco: Never Alcohol Use Standard Drinks/Week Comments Yes 0 (1 standard drink = 0.6 oz pure alcoho l) couple drinks per month Sex Assigned at Date Recorded Not on file documented as of this encounter Progress Notes Aida Hdz - 02/15/2017 11:19 AM CDT Clinic Care Coordination Contact Care Team Conversations CCSW spoke with Dr. Chapman about clarifying the 08/04/[address] Chapman has addended the note and informed the pt via [employer] CCSW received a message that the pt has an appt scheduled on Saturday 02/17 at 9am and would like this CCSW to be there. CCSW called the patient and informed him of the addended note. Discussed the upcoming appt and the pt states he would like this ccsw to come but it is not necessary. This CCSW is NOT able to attend dueto a meeting that day she is not able to cancel. Pt understands and states this is ok. Decided this CCSW will follow up within a week after the appt to continue supporting the patient. PLAN: Pt will outreach as needed CCSW will follow up within 1 week Aida Hdz, Social Work Dental Equipment Installer And Servicer, [facility], FARM CROPS TEACHER [facility]: [facility] [place] P:[phone]/ Signed February 15, 2017 documented in this encounter Plan of Treatment Not on filedocumented as of this encounter Visit Diagnoses Not on filedocumented in this encounter Additional Health Concerns Assessment Noted Time PHQ-9 Depression Total Score: 5 03/20/2016 7:18 AM CDT documented as of this encounter Care Teams Pallet Rectifier Relationship Specialty Start Date End Date Carlos Chapman MD PCP - General Family Practice 02/06/14 04/29/19 Carlos Chapman MD PCP - Assigned PCP 06/28/16 08/02/18 [id number] [address] [id number] Carlos Chapman MD Assigned PCP 06/28/16 02/24/20 [id number] BRU[address]UCA [id number] documented as of this encounter
--- OUTSIDE RECORDS SUMMARY | 2022-03-31 16:54 | XMS_ITS | Encounter Summary ---
:1985 Author Organization [place] Address [address] [facility] [place] [address] Care Team Providers Name Role Phone Carlos Chapman MD Primary Care Provider [phone] Aida Hdz LGSW Unavailable Carlos Chapman MD Unavailable Carlos Chapman MD Unavailable Reason for Visit Reason Onset Date Comments Patient/info Update 11/03/2016 Encounter Details Date Type Department Care Team Description 11/03/2016 Telephone [facility] Carlos Chapman Patient/i nfo Update [place] [id number] [place] [address] [address] [place] [address] [place], [place] [phone] (Wo rk) [address] [phone] Social History Tobacco Use Types Packs/Day Years Used Date Smoking Tobacco: Never Smokeless Tobacco: Never Alcohol Use Standard Drinks/Week Comments Yes 0 (1 standard drink = 0.6 oz pure alcoho l) couple drinks per month Sex Assigned at Date Recorded Not on file documented as of this encounter Miscellaneous Notes Telephone Encounter - Carlos Chapman MD - 11/03/2016 4:29 PM CDT Noted. Telephone Encounter - Yaritza Blackwood - 11/03/2016 3:28 PM CDT Pt calls to inform PMD that he has had 2 sessions of NUCCA adjustments with a chiropractor and feelsthat is helping already, stating that it has helped to take the edge off his current pain. Patient plans to continue this treatment and see neurology if he decides NUCCA is no longer helpful. Encouraged pt to keep his neuro appointment for a bit longer just in case he changes his mind so he will not have a long wait to get in again Salvatore Blackwood Software Computer Specialist 11/03/16 documented in this encounter Plan of Treatment Not on filedocumented as of this encounter Visit Diagnoses Not on filedocumented in this encounter Additional Health Concerns Assessment Noted Time PHQ-9 Depression Total Score: 5 03/20/2016 7:18 AM CDT documented as of this encounter Care Teams Keg Washer Relationship Specialty Start Date End Date Carlos Chapman PCP - General Family Practice 02/06/14 04/29/19 MD Saw Carlos Chapman PCP - Assigned PCP 06/28/16 08/02/[place] [id number] [address] [id number] Aida Hdz, Clinic Dustless Operator Box Office Attendant - 12/12/15 01/21/17 [facility] Clinical Carlos Chapman Assigned PCP 06/28/16 02/24/20 [place] [id number] [address] [id number] documented as of this encounter
--- OUTSIDE RECORDS SUMMARY | 2022-03-31 16:54 | XMS_ITS | Encounter Summary ---
:1985 Author Organization [facility] Address [address] [place] [address] Care Team Providers Name Role Phone Carlos Chapman MD Unavailable [facility]- Reason for Visit Reason Comments Altered Mental Status Encounter Details Date Type Department Care Team Description 04/30/2019 Emergency [facility] Alejandro Garg without aura [facility] lee Hair MD and without status [address] [facility] EM[facility]Y PHYSIC[facility], not [facility] [id number] [phone] [address] [place] [address] (Wo rk) Social History Tobacco Use Types Packs/Day Years Used Date Smoking Tobacco: Former Pipe Smokeless Tobacco: Never Alcohol Use Standard Drinks/Week Comments No 0 (1 standard drink = 0.6 oz pure alcoho l) Sex Assigned at Date Recorded Not on file documented as of this encounter Last Filed Vital Signs Vital Sign Reading Time Taken Comments Blood Pressure 149/114 04/30/2019 8:30 PM [employer]JUNCT [employer]IT[employer] SCIENCE INSTRUCTOR Pulse 88 04/30/2019 8:30 PM ADJUNCT POLITICAL SCIENCE INSTRUCTOR Temperature 36.8 ??C (98.2 ??F) 04/30/2019 4:36 PM ADJUNCT POLITICAL SCIENCE INSTRUCTOR Respiratory Rate 16 04/30/2019 8:30 PM ADJUNCT POLITICAL SCIENCE INSTRUCTOR Oxygen Saturation 97% 04/30/2019 8:30 PM ADJUNCT POLITICAL SCIENCE INSTRUCTOR Inhaled Oxygen Concentration - - Weight 97.7 kg (215 lb 6.2 oz) 04/30/2019 4:36 PM ADJUNCT POLITICAL SCIENCE INSTRUCTOR Height - - Body Mass Index 34.76 09/02/2016 7:46 AM CDT documented in this encounter Discharge Instructions AttachmentsThe following attachments cannot be sent through Care Everywhere. Headache, Migraine, Classic (Lithuanian)documented in this encounter Medications at Time of [...] capsule 12 capsule 3 08/17/2016 (VITAMIN D3) 99361 (50,000 Units) by UNITS mouth once a week capsuleIndications: Vitamin D deficiency fluticasone (FLONASE) Sebastian 1-2 sprays 1 Bottle 3 08/18/19 17 [...] medical cannabis.) documented as of this encounter ED Notes Liban Boyce RN - 04/30/2019 4:36 PM CST Pt c/o feeling confused, blurred vision, left sided tingling for 3-4 days. Pt states he feels like his is not completing his daily chores, but then will find his chores are done. Also states he saw a doctor 04/21 and dx with an ear infection but has not been talking his cefdinir regularly. Alejandro Portillo MD - 04/30/2019 4:34 PM CST History Chief Complaint: Altered Mental Status HPI Ronn Hinkle is a 33 year old male who presents with altered mental status. The patient reports that has had increased confusion, blurred vision and left sided paresthesias for 3-4 days. He is unsureif these symptoms came on suddenly or gradually over time. Additionally he states that he feels unsteady on his feet and that has been worsening over time. On examination following fingers with his eyes makes him dizzy. He endorsed a fever, eye pain, dizziness, right sided neck tightness, light room spinning sensation and denied any chest pain, abdominal pain, nausea, vomiting, chills or back pain. Allergies: Seasonal Allergies Medications: [place] Medical cannabis oral liquid Past Medical History: hypertension Chronic pain syndrome Cisplatin induced neuropathy Polymyalgia Testicular cancer Past Surgical History: Orchiectomy inguinal Family History: Obesity Social History: Former pipe smoker Negative for alcohol use. Medical marijuana use, not prescribed Marital Status: [4] Review of Systems Constitutional: Positive for fever. Negative for chills. Eyes: Positive for pain and visual disturbance (blurred vision). Cardiovascular: Negative for chest pain. Gastrointestinal: Negative for abdominal pain, nausea and vomiting. Musculoskeletal: Positive for neck pain. Negative for back pain. Neurological: Positive for dizziness. All other systems reviewed and are negative. Physical Exam Patient Vitals for the past 24 hrs: BP Temp Pulse Heart Rate Resp SpO2 Weight 04/30/19 2030 (!) 149/114 -- 88 -- 16 97 % -- 04/30/191999 125/73 -- 82 -- -- 98 % -- 04/30/19 191 (!) 146/101 -- 92 -- -- 96 % -- 04/30/19 1900 (!) 160/107 -- 94 -- -- 96 % -- 04/30/19 1830 (!) 164/118 -- 94 -- -- 96 % -- 04/30/19 1815 (!) 168/120 -- 96 -- -- 95 % -- 04/30/19 1810 (!) 156/108 -- 96 -- -- 95 % -- 04/30/19 1700 (!) 161/113 -- 104 -- -- 96 % -- 04/30/19 1647 -- -- -- -- -- 97 % -- 04/30/19 1646 (!) 156/113 -- 108 -- -- -- -- 04/30/19 1636 -- 98.2 ??F (36.8 ??C) 110 110 16 100 % 97.7 kg (215 lb 6.2 oz) Physical Exam General: Patient is awake, alert and interactive when I enter the room. Appears uncomfortable. Lights dimmed. Head: The scalp, face, and head appear normal Eyes: The pupils are equal, round, and reactive to light. Conjunctivae and sclerae are normal. No nystagmus. Full ROM of both eyes and appears symmetric without obvious palsy. ENT: External acoustic canals are normal. The oropharynx is normal without erythema. Uvula is in themidline Neck: Normal range of motion. No evidence of meningismus CV: Regular rate. S1/S2. No murmurs. Resp: Lungs are clear without wheezes or rales. No respiratory distress. GI: Abdomen is soft, no rigidity, guarding, or rebound. No distension. No tenderness to palpation inany quadrant. MS: Normal tone. Joints grossly normal without effusions. No asymmetric leg swelling, calf or thigh tenderness. Skin: No rash or lesions noted. Normal capillary refill noted Neuro: Speech is normal and fluent. Face is symmetric without droop. CN's II-XII intact. Negative pronator drift. 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 5/5 elbow flexion. 5/5 elbow extension. Sensation intact to light touch. Left Arm: Good music education adjunct professor strength. 5/5 elbow flexion. 5/5 elbow extension. Sensation intact to light touch. Right Le/5 straight leg raise, 5/5 knee flexion, 5/5 knee extension, 5/5 dorsiflexion, 5/5 plantar flexion. Sensation intact to light touch. Left Le/5 straight leg raise, 5/5 knee flexion, 5/5 knee extension, 5/5 dorsiflexion, 5/5 plantar flexion. Sensation intact to light touch. Psych: Normal affect. Appropriate interactions. Emergency Department Course ECG: Indication: Altered Mental Status Time: 181 Vent. Rate 96 bpm. CA interval 170. QRS duration 82. QT/QTc 362/457. P-R-T axis 19 -18 11. normal sinus rhythm. Normal ECG. No significant change compared to EKG dated 08/04/16. Read time: 1954 Imaging: Radiographic findings were communicated with the patient who voiced understanding of the findings. MR Neck w/o and w/ contrast angiogram: ??Normal neck MRA, as per radiology MR Brain w/o and w/ contrast: ??Normal head MRI, as per radiology MR Head w/o contrast angiogram: Normal MRA [place], as per radiology Laboratory: CBC: WBC: 11.8 (H), HGB: 16.4, PLT: 264 BMP: Glucose 102 (H), o/w WNL (Creatinine: 1.22) 1655 Troponin: <0.015 1652 Glucose by meter: 91 INR: 0.95 PTT: 29 Interventions: 1707 NS 500mL IV 1708 Antivert 50mg PO 1716 Gadavist 10ml IV 1857 NS 1L IV 1858 Reglan 10mg IV Benadryl 25mg IV Decadron 10mg IV Emergency Department Course: Nursing notes and vitals reviewed. (1651) I performed an exam of the patient as documented above. IV inserted. Medicine administered as documented above. Blood drawn. This was sent to the lab for further testing, results above. The patient was sent for a brain MRI while in the emergency department, findings above. EKG obtained in the ED, see results above. (1848) I rechecked the patient and discussed the results of his workup thus far. Findings and plan explained to the Patient. Patient discharged home with instructions regarding supportive care, medications, and reasons to return. The importance of close follow-up was reviewed. I personally reviewed the laboratory results with the Patient and answered all related questions prior to discharge. Impression & Plan Medical Decision Making: Patient is a 33-year-old male who presents emergency department with mild confusion, blurred vision and left-sided paresthesias and perceived unsteadiness on his feet. Upon initial evaluation he is hemodynamically stable with no vital signs he is afebrile. Physical exam as detailed above highlighted by an overall reassuring neurologic evaluation. However the patient reported that he was too unsteady on his feet to stand up out of bed and for me to assess his gait or Romberg. He felt quite dizzy whenhe was sitting up in bed. He noted that he had been having headache for the past few days as well. Due to the patient's presentation and exam I was concerned about the possibility of significant intracranial pathology. Therefore MRI and MRA were obtained which thankfully were negative for any acute significant pathology. Blood work was obtained which was largely unremarkable. EKG was obtained which did not show any acute signs of ischemia or dysrhythmia. Patient was treated as a complex migraine andhad significant improvement of his symptoms with the aforementioned interventions. At the time of discharge the patient is requesting to go home and feels much better. I discussed return precautions with the patient and his mother. They are amenable at this time. All questions were answered and patient be discharged home in stable condition. Diagnosis: ICD-10-CM 1. Migraine without aura and without status migrainosus, not intractable G43.009 Disposition: discharged to home Scribe Disclosure: I, Lynne Son, am serving as a scribe on 04/30/2019 at 4:52 PM to personally document services performed by Alejandro Garg* based on my observations and the provider's statements to me. Lynne Son 04/30/2019 [facility] EMERGENCY DEPARTMENT Alejandro Garg MD 04/30/19 2146 NCT POLITICAL SCIENCE INSTRUCTOR documented in this encounter Plan of Treatment Not on filedocumented as of this encounter Procedures Procedure Name Priority Date/Time Associated Comments Diagnosis EKG 12-LEAD, TRACING STAT 04/30/2019 6:15 PM R esults for this ONLY ADJUNCT POLITICAL SCIENCE INSTRUCTOR procedure are i n the results section. MRA NECK (CAROTIDS) W/O STAT 04/30/2019 6:08 PM Results for this & W CONTRAST ADJUNCT [employer]ITICAL SCIENCE INSTRUCTOR procedure are i n the results section. MR BRAIN W/O & W STAT 04/30/2019 6:08 PM Resul ts for this CONTRAST ADJUNCT POLITICAL SCIENCE INSTRUCTOR procedure are i n the results section. MRA BRAIN ([place] OF STAT 04/30/2019 6:07 PM R esults for this ROSE) W/O CONTRAST ADJUNCT POLITICAL SCIENCE INSTRUCTOR procedu re are in the results section. CBC WITH PLATELETS & STAT 04/30/2019 4:55 PM R esults for this DIFFERENTIAL ADJUNCT POLITICAL SCIENCE INSTRUCTOR procedure are i n the results section. TROPONIN I STAT 04/30/2019 4:55 PM Results f or this ADJUNCT POLITICAL SCIENCE INSTRUCTOR procedure are i n the results section. INR STAT 04/30/2019 4:55 PM Results f or this ADJUNCT POLITICAL SCIENCE INSTRUCTOR procedure are i n the results section. PARTIAL THROMBOPLASTIN STAT 04/30/2019 4:55 PM Results for this TIME ADJUNCT POLITICAL SCIENCE INSTRUCTOR procedure are i n the results section. BASIC METABOLIC PANEL STAT 04/30/2019 4:55 PM Results for this ADJUNCT POLITICAL SCIENCE INSTRUCTOR procedure are i n the results section. GLUCOSE BY METER Routine 04/30/2019 4:52 PM Resul ts for this ADJUNCT POLITICAL SCIENCE INSTRUCTOR procedure are i n the results section. documented in this encounter Results EKG 12-lead, tracing only (04/30/2019 6:15 PM ADJUNCT POLITICAL SCIENCE INSTRUCTOR) [facility] gist Method Time Signature Interpretation ECG Click View RADIOLOGY Image link RESULTS to view waveform and result Specimen (Source) Anatomical Collection Method Collection Time Re ceived Time Location / / Volume Laterality 04/30/2019 6:15 PM ADJUNCT POLITICAL SCIENCE INSTRUCTOR Alejandro Garg MD ECG ORDERABLES Performing Organization Address City/State/ZIP Code Phon e Number RADIOLOGY RESULTS MRA Neck (Carotids) wo & w Contrast (04/30/2019 6:08 PM ADJUNCT POLITICAL SCIENCE INSTRUCTOR) Anatomical Region Laterality Modality Neck, SUBRAD MR NEURO, UMP MR NEURO, RAD MR Magnetic Resonance Specimen (Source) Anatomical Collection Method Collection Time Re ceived Time Location / / Volume Laterality 04/30/2019 5:17 PM ADJUNCT POLITICAL SCIENCE INSTRUCTOR Impressions 04/30/2019 6:32 PM ADJUNCT POLITICAL SCIENCE INSTRUCTOR IMPRESSION: HEAD MRI: 1. ??Normal head MRI. HEAD MRA: 1. ??Normal MRA [place]. NECK MRA: 1. ??Normal neck MRA. Narrative 04/30/2019 6:32 PM ADJUNCT POLITICAL SCIENCE INSTRUCTOR EXAM: MR BRAIN W/O and W CONTRAST, MRA BRAIN ([place]) WO CONTRAST, MRA NECK (CAROTIDS) WO and W CONTRAST LOCATION: [facility] DATE/TIME: 04/30/2019 5:17 PM INDICATION: Vertigo. Blurred vision COMPARISON: Diffusion-weighted images CONTRAST: 10ml gadavist TECHNIQUE: HEAD MRI: Routine multiplanar multiseque nce head MRI without and with intravenous contrast. HEAD MRA: 3D [id number] head MRA wit hout intravenous contrast. NECK MRA: Neck MRA without and with IV c ontrast. Stenosis measurements made according to NASCET criteria unless otherwise specified. FINDINGS: HEAD MRI: INTRACRANIAL CONTENTS: No acute or subac [place] infarct. No mass, acute hemorrhage, or extra-axial fluid collections. Normal brain parenchymal signal. Normal ventricles and sulci. Normal position of the cer ebellar tonsils. No pathologic contrast enhancement. SELLA: No abnormality accounting for felisha hnique. OSSEOUS STRUCTURES/SOFT TISSUES: Normal marrow signal. The major intracranial vascular flow voids are maintained. ORBITS: No abnormality accounting for te chnique. SINUSES/MASTOIDS: No paranasal sinus muc osal disease. No middle ear or mastoid effusion. HEAD MRA: ANTERIOR CIRCULATION: No stenosis/occlus ion, aneurysm, or high flow vascular malformation. Standard [place] anatomy. POSTERIOR CIRCULATION: No stenosis/occlu mikaela, aneurysm, or high flow vascular malformation. Balanced vertebral arteries supply a normal basilar artery. NECK MRA: RIGHT CAROTID: No measurable stenosis or dissection. LEFT CAROTID: No measurable stenosis or dissection. VERTEBRAL ARTERIES: No focal stenosis or dissection. Balanced vertebral arteries. AORTIC ARCH: Classic aortic arch anatomy with no significant stenosis at the origin of the great vessels. Procedure Note Drake Lee MD - 04/30/2019Format ting of this note might be different from the original. EXAM: MR BRAIN W/O and W CONTRAST, MRA B RAIN ([place]) WO CONTRAST, MRA NECK (CAROTIDS) WO and W CONTRAST LOCATION: [facility] DATE/TIME: 04/30/2019 5:17 PM INDICATION: Vertigo. Blurred vision COMPARISON: Diffusion-weighted images CONTRAST: 10ml gadavist TECHNIQUE: HEAD MRI: Routine multiplanar multiseque nce head MRI without and with intravenous contrast. HEAD MRA: 3D [id number] head MRA wit hout intravenous contrast. NECK MRA: Neck MRA without and with IV c ontrast. Stenosis measurements made according to NASCET criteria unless otherwise specified. FINDINGS: HEAD MRI: INTRACRANIAL CONTENTS: No acute or subac [place] infarct. No mass, acute hemorrhage, or extra-axial fluid collections. Normal brain parenchymal signal. Normal ventricles and sulci. Normal position of the cerebellar tonsils. No pathologic contrast enhancem ent. SELLA: No abnormality accounting for felisha hnique. OSSEOUS STRUCTURES/SOFT TISSUES: Normal marrow signal. The major intracranial vascular flow voids are maintained. ORBITS: No abnormality accounting for te chnique. SINUSES/MASTOIDS: No paranasal sinus muc osal disease. No middle ear or mastoid effusion. HEAD MRA: ANTERIOR CIRCULATION: No stenosis/occlus ion, aneurysm, or high flow vascular malformation. Standard [place] anatomy. POSTERIOR CIRCULATION: No stenosis/occlu mikaela, aneurysm, or high flow vascular malformation. Balanced vertebral arteries supply a normal basilar artery. NECK MRA: RIGHT CAROTID: No measurable stenosis or dissection. LEFT CAROTID: No measurable stenosis or dissection. VERTEBRAL ARTERIES: No focal stenosis or dissection. Balanced vertebral arteries. AORTIC ARCH: Classic aortic arch anatomy with no significant stenosis at the origin of the great vessels. IMPRESSION: HEAD MRI: 1. Normal head MRI. HEAD MRA: 1. Normal MRA [place]. NECK MRA: 1. Normal neck MRA. Alejandro Garg MD G MRI ORDERABLES MR Brain w/o & w Contrast (04/30/2019 6:08 PM ADJUNCT POLITICAL SCIENCE INSTRUCTOR) Anatomical Region Laterality Modality Head, SUBRAD MR NEURO, UMP MR NEURO, RAD MR Magnetic Resonance Specimen (Source) Anatomical Collection Method Collection Time Re ceived Time Location / / Volume Laterality 04/30/2019 5:17 PM ADJUNCT POLITICAL SCIENCE INSTRUCTOR Impressions 04/30/2019 6:32 PM ADJUNCT POLITICAL SCIENCE INSTRUCTOR IMPRESSION: HEAD MRI: 1. ??Normal head MRI. HEAD MRA: 1. ??Normal MRA [place]. NECK MRA: 1. ??Normal neck MRA. Narrative 04/30/2019 6:32 PM ADJUNCT POLITICAL SCIENCE INSTRUCTOR EXAM: MR BRAIN W/O and W CONTRAST, MRA BRAIN ([place]) WO CONTRAST, MRA NECK (CAROTIDS) WO and W CONTRAST LOCATION: [facility] DATE/TIME: 04/30/2019 5:17 PM INDICATION: Vertigo. Blurred vision COMPARISON: Diffusion-weighted images CONTRAST: 10ml gadavist TECHNIQUE: HEAD MRI: Routine multiplanar multiseque nce head MRI without and with intravenous contrast. HEAD MRA: 3D [id number]-[id number] head MRA wit hout intravenous contrast. NECK MRA: Neck MRA without and with IV c ontrast. Stenosis measurements made according to NASCET criteria unless otherwise specified. FINDINGS: HEAD MRI: INTRACRANIAL CONTENTS: No acute or subac [place] infarct. No mass, acute hemorrhage, or extra-axial fluid collections. Normal brain parenchymal signal. Normal ventricles and sulci. Normal position of the cer ebellar tonsils. No pathologic contrast enhancement. SELLA: No abnormality accounting for felisha hnique. OSSEOUS STRUCTURES/SOFT TISSUES: Normal marrow signal. The major intracranial vascular flow voids are maintained. ORBITS: No abnormality accounting for te chnique. SINUSES/MASTOIDS: No paranasal sinus muc osal disease. No middle ear or mastoid effusion. HEAD MRA: ANTERIOR CIRCULATION: No stenosis/occlus ion, aneurysm, or high flow vascular malformation. Standard [place] anatomy. POSTERIOR CIRCULATION: No stenosis/occlu mikaela, aneurysm, or high flow vascular malformation. Balanced vertebral arteries supply a normal basilar artery. NECK MRA: RIGHT CAROTID: No measurable stenosis or dissection. LEFT CAROTID: No measurable stenosis or dissection. VERTEBRAL ARTERIES: No focal stenosis or dissection. Balanced vertebral arteries. AORTIC ARCH: Classic aortic arch anatomy with no significant stenosis at the origin of the great vessels. Procedure Note Drake Lee MD - 04/30/2019Format ting of this note might be different from the original. EXAM: MR BRAIN W/O and W CONTRAST, MRA B RAIN ([place]) WO CONTRAST, MRA NECK (CAROTIDS) WO and W CONTRAST LOCATION: [facility] DATE/TIME: 04/30/2019 5:17 PM INDICATION: Vertigo. Blurred vision COMPARISON: Diffusion-weighted images CONTRAST: 10ml gadavist TECHNIQUE: HEAD MRI: Routine multiplanar multiseque nce head MRI without and with intravenous contrast. HEAD MRA: 3D [id number] head MRA wit hout intravenous contrast. NECK MRA: Neck MRA without and with IV c ontrast. Stenosis measurements made according to NASCET criteria unless otherwise specified. FINDINGS: HEAD MRI: INTRACRANIAL CONTENTS: No acute or subac [place] infarct. No mass, acute hemorrhage, or extra-axial fluid collections. Normal brain parenchymal signal. Normal ventricles and sulci. Normal position of the cerebellar tonsils. No pathologic contrast enhancem ent. SELLA: No abnormality accounting for felisha hnique. OSSEOUS STRUCTURES/SOFT TISSUES: Normal marrow signal. The major intracranial vascular flow voids are maintained. ORBITS: No abnormality accounting for te chnique. SINUSES/MASTOIDS: No paranasal sinus muc osal disease. No middle ear or mastoid effusion. HEAD MRA: ANTERIOR CIRCULATION: No stenosis/occlus ion, aneurysm, or high flow vascular malformation. Standard [place] anatomy. POSTERIOR CIRCULATION: No stenosis/occlu mikaela, aneurysm, or high flow vascular malformation. Balanced vertebral arteries supply a normal basilar artery. NECK MRA: RIGHT CAROTID: No measurable stenosis or dissection. LEFT CAROTID: No measurable stenosis or dissection. VERTEBRAL ARTERIES: No focal stenosis or dissection. Balanced vertebral arteries. AORTIC ARCH: Classic aortic arch anatomy with no significant stenosis at the origin of the great vessels. IMPRESSION: HEAD MRI: 1. Normal head MRI. HEAD MRA: 1. Normal MRA [place]. NECK MRA: 1. Normal neck MRA. Alejandro Garg MD [facility] ORDERABLES MRA Brain ([place]) wo Contrast (04/30/2019 6:07 PM ADJUNCT POLITICAL SCIENCE INSTRUCTOR) Anatomical Region Laterality Modality Head, SUBRAD MR NEURO, UMP MR NEURO, RAD MR Magnetic Resonance Specimen (Source) Anatomical Collection Method Collection Time Re ceived Time Location / / Volume Laterality 04/30/2019 5:17 PM ADJUNCT POLITICAL SCIENCE INSTRUCTOR Impressions 04/30/2019 6:32 PM ADJUNCT POLITICAL SCIENCE INSTRUCTOR IMPRESSION: HEAD MRI: 1. ??Normal head MRI. HEAD MRA: 1. ??Normal MRA [place]. NECK MRA: 1. ??Normal neck MRA. Narrative 04/30/2019 6:32 PM ADJUNCT POLITICAL SCIENCE INSTRUCTOR EXAM: MR BRAIN W/O and W CONTRAST, MRA BRAIN ([place]) WO CONTRAST, MRA NECK (CAROTIDS) WO and W CONTRAST LOCATION: [facility] DATE/TIME: 04/30/2019 5:17 PM INDICATION: Vertigo. Blurred vision COMPARISON: Diffusion-weighted images CONTRAST: 10ml gadavist TECHNIQUE: HEAD MRI: Routine multiplanar multiseque nce head MRI without and with intravenous contrast. HEAD MRA: 3D [id number] head MRA wit hout intravenous contrast. NECK MRA: Neck MRA without and with IV c ontrast. Stenosis measurements made according to NASCET criteria unless otherwise specified. FINDINGS: HEAD MRI: INTRACRANIAL CONTENTS: No acute or subac [place] infarct. No mass, acute hemorrhage, or extra-axial fluid collections. Normal brain parenchymal signal. Normal ventricles and sulci. Normal position of the cer ebellar tonsils. No pathologic contrast enhancement. SELLA: No abnormality accounting for felisha hnique. OSSEOUS STRUCTURES/SOFT TISSUES: Normal marrow signal. The major intracranial vascular flow voids are maintained. ORBITS: No abnormality accounting for te chnique. SINUSES/MASTOIDS: No paranasal sinus muc osal disease. No middle ear or mastoid effusion. HEAD MRA: ANTERIOR CIRCULATION: No stenosis/occlus ion, aneurysm, or high flow vascular malformation. Standard [place] anatomy. POSTERIOR CIRCULATION: No stenosis/occlu mikaela, aneurysm, or high flow vascular malformation. Balanced vertebral arteries supply a normal basilar artery. NECK MRA: RIGHT CAROTID: No measurable stenosis or dissection. LEFT CAROTID: No measurable stenosis or dissection. VERTEBRAL ARTERIES: No focal stenosis or dissection. Balanced vertebral arteries. AORTIC ARCH: Classic aortic arch anatomy with no significant stenosis at the origin of the great vessels. Procedure Note Drake Lee MD - 04/30/2019Format ting of this note might be different from the original. EXAM: MR BRAIN W/O and W CONTRAST, MRA B RAIN ([place]) WO CONTRAST, MRA NECK (CAROTIDS) WO and W CONTRAST LOCATION: [facility] DATE/TIME: 04/30/2019 5:17 PM INDICATION: Vertigo. Blurred vision COMPARISON: Diffusion-weighted images CONTRAST: 10ml gadavist TECHNIQUE: HEAD MRI: Routine multiplanar multiseque nce head MRI without and with intravenous contrast. HEAD MRA: 3D [id number] head MRA wit hout intravenous contrast. NECK MRA: Neck MRA without and with IV c ontrast. Stenosis measurements made according to NASCET criteria unless otherwise specified. FINDINGS: HEAD MRI: INTRACRANIAL CONTENTS: No acute or subac [place] infarct. No mass, acute hemorrhage, or extra-axial fluid collections. Normal brain parenchymal signal. Normal ventricles and sulci. Normal position of the cerebellar tonsils. No pathologic contrast enhancem ent. SELLA: No abnormality accounting for felisha hnique. OSSEOUS STRUCTURES/SOFT TISSUES: Normal marrow signal. The major intracranial vascular flow voids are maintained. ORBITS: No abnormality accounting for te chnique. SINUSES/MASTOIDS: No paranasal sinus muc osal disease. No middle ear or mastoid effusion. HEAD MRA: ANTERIOR CIRCULATION: No stenosis/occlus ion, aneurysm, or high flow vascular malformation. Standard [place] anatomy. POSTERIOR CIRCULATION: No stenosis/occlu mikaela, aneurysm, or high flow vascular malformation. Balanced vertebral arteries supply a normal basilar artery. NECK MRA: RIGHT CAROTID: No measurable stenosis or dissection. LEFT CAROTID: No measurable stenosis or dissection. VERTEBRAL ARTERIES: No focal stenosis or dissection. Balanced vertebral arteries. AORTIC ARCH: Classic aortic arch anatomy with no significant stenosis at the origin of the great vessels. IMPRESSION: HEAD MRI: 1. Normal head MRI. HEAD MRA: 1. Normal MRA [place]. NECK MRA: 1. Normal neck MRA. Alejandro Garg MD [facility] [place] ORDERABLES Troponin I (04/30/2019 4:55 PM ADJUNCT POLITICAL SCIENCE INSTRUCTOR) athologist Signature Troponin I ES <0.015 0.000 - 04/30/2019 [place] 0.045 ug/L 5:27 PM [facility] Comment: The 99th percentile for upper reference range is 0.045 ug/L. ??Troponin values in the range of 0.045 - 0.120 ug/L may b e associated with risks of adverse clinical events. Specimen Anatomical Collection Method Collection Time Receive d Time (Source) Location / / Volume Laterality Blood specimen 04/30/2019 4:55 PM 019 5:05 (specimen) ADJUNCT POLITICAL SCIENCE INSTRUCTOR PM ADJUNCT POLITICAL SCIENCE INSTRUCTOR Alejandro Garg MD LAB - BLOOD ORDERABLES Performing Organization Address City/State/ZIP Code Phon e Number M [facility] [address] [place], [place] [address] [facility] [address] [place], [place] [address] [place] [address] Partial thromboplastin time (04/30/2019 4:55 PM ADJUNCT POLITICAL SCIENCE INSTRUCTOR) P athologist Signature PTT 29 22 - 37 sec 04/30/2019 [facility] 5:26 PM ADJUNCT POLITICAL SCIENCE INSTRUCTOR HOSPITAL Specimen Anatomical Collection Method Collection Time Receive d Time (Source) Location / / Volume Laterality Blood specimen 04/30/2019 4:55 PM 019 5:05 (specimen) ADJUNCT POLITICAL SCIENCE INSTRUCTOR PM ADJUNCT POLITICAL SCIENCE INSTRUCTOR Alejandro Garg MD LAB - BLOOD ORDERABLES Performing Organization Address City/State/[facility] Phon sharon Perez [facility] [address] [place], [place] [address] [facility] [address] [place], [place] [address], [facility] [phone] INR (04/30/2019 4:55 PM ADJUNCT POLITICAL SCIENCE INSTRUCTOR) athologist Signature INR 0.95 0.86 - 1.14 04/30/2019 [facility] 5:[address] [facility] Specimen Anatomical Collection Method Collection Time Receive d Time (Source) Location / / Volume Laterality Blood specimen 04/30/2019 4:55 PM 019 5:05 (specimen) ADJUNCT POLITICAL SCIENCE INSTRUCTOR PM ADJUNCT POLITICAL SCIENCE INSTRUCTOR Alejandro Garg MD LAB - BLOOD ORDERABLES Performing Organization Address City/[facility] Phon sharon Perez [facility] [address] [place], [place] [address] [facility] [address] [place], [place] [address], [facility] [phone] (ABNORMAL) Basic metabolic panel (04/30/2019 4:55 PM ADJUNCT POLITICAL SCIENCE INSTRUCTOR) athologist Signature Sodium 139 133 - 144 04/30/2019 [place] mmol/L 5:18 PM [facility] Potassium 3.5 3.4 - 5.3 04/30/2019 [place] mmol/L 5:18 PM [facility] Chloride 107 94 - 109 04/30/2019 [facility] mmol/L 5:18 PM [facility] Carbon Dioxide 26 20 - 32 04/30/2019 [place] mmol/L 5:24 PM [facility] Anion Gap 6 3 - 14 04/30/2019 [facility] mmol/L 5:24 PM [facility] Glucose 102 (H) 70 - 99 04/30/2019 [place] mg/dL 5:24 PM [facility] Urea Nitrogen 15 7 - 30 04/30/2019 [place] mg/dL 5:24 PM [facility] Creatinine 1.22 0.66 - 04/30/2019 [place] 1.25 mg/dL 5:24 PM [facility] GFR Estimate 77 >60 04/30/2019 [place] mL/min/{1. 5:24 PM [facility] 73_m2} HOSPITAL Comment: Non GFR Calc Starting 05/17/2018, serum creatinine ba sed estimated GFR (eGFR) will be calculated using the Chronic Kidney Dise [facility] Epidemiology Collaboration (CKD-EPI) equation. GFR Estimate If 89 >60 mL/min/{1.73_m2} 04/30/2019 5: 24 PM [facility] Comment: GFR Calc Starting 05/17/2018, serum creatinine ba sed estimated GFR (eGFR) will be calculated using the Chronic Kidney Dise [facility] Epidemiology Collaboration (CKD-EPI) equation. Calcium 8.6 8.5 - 10.1 mg/dL 04/30/2019 5:24 PM [facility] Specimen Anatomical Collection Method Collection Time Receive d Time (Source) Location / / Volume Laterality Blood specimen 04/30/2019 4:55 PM 019 5:05 (specimen) ADJUNCT POLITICAL SCIENCE INSTRUCTOR PM ADJUNCT POLITICAL SCIENCE INSTRUCTOR Alejandro Garg MD LAB - BLOOD ORDERABLES Performing Organization Address City/State/ZIP Code Phon e Number M [place] [address] [place] [address] [place] [address] [phone] (ABNORMAL) CBC with platelets differential (04/30/2019 4:55 PM ADJUNCT POLITICAL SCIENCE INSTRUCTOR) [facility] Method Time Signature WBC 11.8 (H) 4.0 - 04/30/2019 [facility] 11.0 5:09 PM [facility] 10e9/L [facility] RBC Count 5.34 4.4 - 5.9 04/30/2019 [place] 10e12/L 5:09 PM [facility] Hemoglobin 16.4 13.3 - 04/30/2019 [facility] 17.7 g/dL 5:09 PM [facility] Hematocrit 48.1 40.0 - 04/30/2019 [facility] 53.0 % 5:09 PM [facility] MCV 90 78 - 100 04/30/2019 [facility] fl 5:09 PM [facility] MCH 30.7 26.5 - 04/30/2019 [facility] 33.0 pg 5:09 PM [facility] MCHC 34.1 31.5 - 04/30/2019 [facility] 36.5 g/dL 5:09 PM [facility] RDW 12.7 10.0 - 04/30/2019 [facility] 15.0 % 5:09 PM [facility] Platelet Count 264 150 - 450 04/30/2019 [facility] 10e9/L 5:09 PM [facility] Diff Method Automated 04/30/2019 [facility] Method 5:09 PM [facility] % Neutrophils 59.3 % 04/30/2019 [facility] 5:09 PM [facility] % Lymphocytes 26.3 % 04/30/2019 [facility] 5:09 PM [facility] % Monocytes 8.8 % 04/30/2019 [facility] 5:09 PM [facility] % Eosinophils 4.4 % 04/30/2019 [facility] 5:09 PM [facility] % Basophils 0.6 % 04/30/2019 [facility] 5:09 PM [facility] % Immature 0.6 % 04/30/2019 [facility] Granulocytes 5:09 PM [facility] Nucleated RBCs 0 0 /100 04/30/2019 [facility] 5:09 PM [facility] Absolute 7.0 1.6 - 8.3 04/30/2019 [facility] Neutrophil 10e9/L 5:09 PM [facility] Absolute 3.1 0.8 - 5.3 04/30/2019 [facility] Lymphocytes 10e9/L 5:09 PM [facility] Absolute 1.0 0.0 - 1.3 04/30/2019 [facility] Monocytes 10e9/L 5:09 PM [facility] Absolute 0.5 0.0 - 0.7 04/30/2019 [facility] Eosinophils 10e9/L 5:09 PM [facility] Absolute 0.1 0.0 - 0.2 04/30/2019 [facility] Basophils 10e9/L 5:09 PM [facility] Abs Immature 0.1 0 - 0.4 04/30/2019 [place] Granulocytes 10e9/L 5:09 PM [facility] Absolute 0.0 04/30/2019 [place] Nucleated RBC 5:09 PM [facility] Specimen Anatomical Collection Method Collection Time Receive d Time (Source) Location / / Volume Laterality Blood specimen 04/30/2019 4:55 PM 019 5:05 (specimen) ADJUNCT POLITICAL SCIENCE INSTRUCTOR PM ADJUNCT POLITICAL SCIENCE INSTRUCTOR Alejandro Garg MD LAB - BLOOD ORDERABLES Performing Organization Address City/State/ZIP Code Phon e Number M [facility] [address] [place], [place] [address] [facility] [address] [place], [place] [address] [phone] Glucose by meter (04/30/2019 4:52 PM ADJUNCT POLITICAL SCIENCE INSTRUCTOR) athologist Signature Glucose 91 70 - 99 04/30/2019 [facility] mg/dL 6:21 PM ADJUNCT POLITICAL SCIENCE INSTRUCTOR TEST, GLUCOSE Specimen Anatomical Collection Method Collection Time Receive d Time (Source) Location / / Volume Laterality 04/30/2019 4:52 PM 9 6:21 ADJUNCT POLITICAL SCIENCE INSTRUCTOR PM ADJUNCT POLITICAL SCIENCE INSTRUCTOR Alejandro Garg MD LAB - BEAKER POCT Performing Organization Address City/State/ZIP Code Phon e Number [facility] POINT OF CARE TEST, GLUCOSE POINT OF CARE TEST, GLUCOSE documented in this encounter Visit Diagnoses Diagnosis Migraine without aura and without status migrainosus, not intractable Migraine without aura, without mention o f intractable migraine without mention of status migrainosus documented in this encounter Administered Medications Inactive Administered Medications - up to 3 most recent administrations Medication Order MAR Action Action Date Dose Rate Site 0.9% sodium chloride BOLUS New Bag 04/30/2019 5:07 PM ADJUNCT POLITICAL SCIENCE INSTRUCTOR 500 mLs 500 mL/hr Intravenous, 500 mL, ONCE, On 04/30/19 at 1702, For 1 dose 0.9% sodium chloride BOLUS New Bag 04/30/2019 6:57 PM ADJUNCT POLITICAL SCIENCE INSTRUCTOR 1,000 mLs 1000 mL/hr Intravenous, 1,000 mL, ONCE, at 1,000 mL/hr, Administer over 1 Hours, On 04/30/19 at 1853, For 1 dose dexamethasone PF (DECADRON) injection 10 mg Given 04/30/2019 6:58 PM ADJUNCT POLITICAL SCIENCE INSTRUCTOR 10 mg 10 mg, Intravenous, ONCE, Administer over 1 Minutes, On 04/30/19 at 1853, For 1 dose, For IV doses 1-20 mg, give IV Push undiluted over 1 minute. diphenhydrAMINE (BENADRYL) injection 25 mg Given 04/30/2019 6:58 PM ADJUNCT POLITICAL SCIENCE INSTRUCTOR 25 mg 25 mg, Intravenous, ONCE, On 04/30/19 at 1853, For 1 dose, For ordered IV doses 1-50 mg, give IV Push undiluted. Give each 25mg over a minimum of 1 minute. Extend in non-emergency gadobutrol (GADAVIST) injection 10 mL Given 04/30/2019 5:16 PM ADJUNCT POLITICAL SCIENCE INSTRUCTOR 10 mLs 10 mL, Intravenous, ONCE, On 04/30/19 at 1709, For 1 dose, Supplied by, and administered by MRI. ketorolac (TORADOL) injection 30 mg Given 04/30/2019 6:57 PM ADJUNCT POLITICAL SCIENCE INSTRUCTOR 30 mg 30 mg, Intravenous, ONCE, On 04/30/19 at 1853, For 1 dose, Do not give within 6 hours of Ibuprofen. Can cause pain on injection. If ordered intravenously (IV) : administer through a running maintenance fluid over 1 minute followed by a flush. If patient complains of pain on injection, may dilute 15-30 mg in 5 mL and push over 1 to 2 minutes. meclizine (ANTIVERT) tablet 50 mg Given 04/30/2019 5:08 PM ADJUNCT POLITICAL SCIENCE INSTRUCTOR 50 mg 50 mg, Oral, ONCE, On 04/30/19 at 1702, For 1 dose metoclopramide (REGLAN) injection 10 mg Given 04/30/2019 6:58 PM ADJUNCT POLITICAL SCIENCE INSTRUCTOR 10 mg 10 mg, Intravenous, Administer over 2 Minutes, ONCE, On 04/30/19 at 1853, For 1 dose, Avoid use if patient has full bowel obstruction or perforation. Irritant. For ordered IV doses 1-10 mg, give IV Push undiluted over 2 minutes. documented in this encounter Active and Recently Administered Medications Times are shown in ADJUNCT POLITICAL SCIENCE INSTRUCTOR. Scheduled Medication Order 04/28/2019 04/29/2019 04/30/2019 0.9% sodium chloride BOLUS (COMPLETED) 1707 (New Bag - Provider: Negrita Kemp RN)1835 (Stopped - Provider: Negriat Kemp RN) Intravenous, 500 mL, ONCE, 04/30/19 at 1702, For 1 dose 0.9% sodium chloride BOLUS (COMPLETED) 1856 (New Bag - Provider: Negrita Kemp RN)1956 (Stopped - Provider: Negrita Kemp RN) Intravenous, 1,000 mL, ONCE, at 1,000 mL /hr, Administer over 1 Hours, On 04/30/19 at 1853, For 1 dose dexamethasone PF (DECADRON) injection 10 mg (COMPLETED) 1857 (Given - Provider: Negrita Kemp RN) 10 mg, Intravenous, ONCE, Administer ove r 1 Minutes, 04/30/19 at 1853, For 1 dose, For IV doses 1-20 mg, give IV Push undiluted over 1 minute. diphenhydrAMINE (BENADRYL) injection 25 mg (COMPLETED) 1857 (Given - Provider: Negrita Kemp RN) 25 mg, Intravenous, ONCE, 04/30/19 at 1853, For 1 dose, For ordered IV doses 1-50 mg, give IV Push undiluted. Give each 25mg over a minimum of 1 minute. Extend in non-emergency gadobutrol (GADAVIST) injection 10 mL (COMPLETED) 1715 (Given - Provider: Kacy Contreras) 10 mL, Intravenous, ONCE, 04/30/19 at 1709, For 1 dose, Supplied by, and administered by MRI. ketorolac (TORADOL) injection 30 mg (COMPLETED) 1856 (Given - Provider: Negrita Kemp RN) 30 mg, Intravenous, ONCE, 04/30/19 at 1853, For 1 dose, Do not give within 6 hours of Ibuprofen. Can cause pain on injection. If ordered intravenously (IV) : administer through a running maintenance fluid over 1 minute followed by a flush. If patient complains of pain on injection, may dilute 15-30 mg in 5 mL and push over 1 to 2 minutes. meclizine (ANTIVERT) tablet 50 mg (COMPLETED) 1707 (Given - Provider: Negrita Kemp RN) 50 mg, Oral, ONCE, 04/30/19 at 1702, For 1 dose metoclopramide (REGLAN) injection 10 mg (COMPLETED) 1858 (Given - Provider: Negrita Kemp RN) 10 mg, Intravenous, Administer over 2 Mi nutes, ONCE, 04/30/19 at 1853, For 1 dose, Avoid use if patient has full bowel obstruction or perforation. Irritant. For ordered IV doses 1-10 mg, give IV Push undiluted over 2 minutes. documented in this encounter Additional Health Concerns Assessment Noted Time PHQ-9 Depression Total Score: 5 03/20/2016 7:18 AM CDT documented as of this encounter Care Teams Nurse Liaison Relationship Specialty Start Date End Date [facility] - General 04/30/19 [facility] [address] [place] [address] Carlos Chapman MD Assigned PCP 06/28/16 02/24/20 [address] [place] [address] documented as of this encounter
--- OUTSIDE RECORDS SUMMARY | 2022-03-31 16:54 | XMS_ITS | Encounter Summary ---
:1985 Author Organization [place] Address [address] [facility] [place] [address] Care Team Providers Name Role Phone Carlos Chapman MD Primary Care Provider Aida Hdz LGSW Unavailable Carlos Chapman MD Unavailable Carlos Chapman MD Unavailable Reason for Visit Reason Onset Date Comments Patient Request for Note/Letter 01/11/2017 Encounter Details Date Type Department Care Team Description 01/11/2017 Telephone [facility] Carlos Chapman Patient R equest for Clinic Anjel Spring MD Note/Letter [address] [place] [address] [place], [place] [phone] (Wo rk) [address] [phone] Social History Tobacco Use Types Packs/Day Years Used Date Smoking Tobacco: Never Smokeless Tobacco: Never Alcohol Use Standard Drinks/Week Comments Yes 0 (1 standard drink = 0.6 oz pure alcoho l) couple drinks per month Sex Assigned at Date Recorded Not on file documented as of this encounter Miscellaneous Notes Telephone Encounter - Yaritza Blackwood - 01/13/2017 11:57 AM CDT Pt picked up letter. Salvatore Blackwood Heavy Machinery Assembler 01/13/17 11:57 AM Telephone Encounter - Yaritza Blackwood - 01/12/2017 3:24 PM CDT Spoke with pt informed that letter is at front end ui developer ready and for sisal picker. Salvatore Jaison Heavy Machinery Assembler 01/12/17 3:26 PM Telephone Encounter - Carlos Chapman MD - 01/12/2017 2:09 PM CDT Letter printed. Ready to mail/sisal picker. Carlos Chapman MD Telephone Encounter - Stefany Lau RN - 01/11/2017 2:51 PM CDT Pt calling stating he need letter redone from 10/21/16 with updated date to submit for child support.He is wondering if he needs to be seen for follow up or can he just have the letter written. Pt states he does work but infrequently and is still going to all his appointments. Please advise Stefany Lau RN, BSN documented in this encounter Plan of Treatment Not on filedocumented as of this encounter Visit Diagnoses Not on filedocumented in this encounter Additional Health Concerns Assessment Noted Time PHQ-9 Depression Total Score: 5 03/20/2016 7:18 AM CDT documented as of this encounter Care Teams Copy Manager Relationship Specialty Start Date End Date Carlos Chapman PCP - General Family Practice 02/06/14 04/29/19 MD Saw Carlos Chapman PCP - Assigned PCP 06/28/16 08/02/18 [place] [id number] [address] [address] Aida Hdz, Clinic Coffin Maker [employer]der [employer] - 12/12/15 01/21/17 [facility] Clinical Carlos Chapman Assigned PCP 06/28/16 02/24/20 [place] [id number] [place] [address] documented as of this encounter
--- OUTSIDE RECORDS SUMMARY | 2022-03-31 16:54 | XMS_ITS | Encounter Summary ---
:1985 Author Organization [place] Address [address] [place] [address] Care Team Providers Name Role Phone Carlos Chapman MD Unavailable [facility]- Encounter Details Date Type Department Care Team Description 04/30/2019 Travel Social History Tobacco Use Types Packs/Day Years Used Date Smoking Tobacco: Former Pipe Smokeless Tobacco: Never Alcohol Use Standard Drinks/Week Comments No 0 (1 standard drink = 0.6 oz pure alcoho l) Sex Assigned at Date Recorded Not on file documented as of this encounter Plan of Treatment Not on filedocumented as of this encounter Visit Diagnoses Not on filedocumented in this encounter Additional Health Concerns Assessment Noted Time PHQ-9 Depression Total Score: 5 03/20/2016 7:18 AM CDT documented as of this encounter Care Teams Back Tender Relationship Specialty Start Date End Date [facility] And PCP - General 04/30/19 [facility] [address] [place] [address] Carlos Chapman MD Assigned PCP 06/28/16 02/24/20 [address] [place] [address] documented as of this encounter
--- OUTSIDE RECORDS SUMMARY | 2022-03-31 16:54 | XMS_ITS | Encounter Summary ---
:1985 Author Organization [place] Address [address] [place] [address]. [place] [address] Care Team Providers Name Role Phone Carlos Chapman MD Primary Care Provider [phone] Aida Hdz [facility] Unavailable Carlos Chapman MD Unavailable Carlos Chapman MD Unavailable Reason for Visit Reason Comments Clinic Care Coordination - Follow-up ccsw Encounter Details Date Type Department Care Team Description 12/11/2016 Care Coordination [facility] Carlos Chapman [facility] Care Care Coordination MD Saw Coordination - [address] [place] [id number] [place] [address] Follow-up ( ccsw) [place] [id number] Social History Tobacco Use Types Packs/Day Years Used Date Smoking Tobacco: Never Smokeless Tobacco: Never Alcohol Use Standard Drinks/Week Comments Yes 0 (1 standard drink = 0.6 oz pure alcoho l) couple drinks per month Sex Assigned at Date Recorded Not on file documented as of this encounter Progress Notes Aida Hdz - 12/11/2016 2:00 PM CDT Clinic Care Coordination Contact Care Team Conversations Called patient States he has not done anything about his RESAW TAILER concerns yet. Feels he could manage with his reduced hours but needs a member service specialist agency more reliable. CCSW note from 11/06/15 shows [employer] also contracts with [facility] in [place] and [facility] in [place]. CCSW will pull thecontact information and send to patient via mail. He will call to discuss his case and how to switchservices. 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 Discussed CCSW sending a list of financial resources in the community, but the pt declines. Would like to try on his own to manage finances. Discussed CADI waiver. Pt is not on SSDI, states he is waiting for his court appointment to go through. Declines CCSW to send out information on the waiver at this time. Pt is having trouble affording his cannabis oil. Askes if there are resources. CCSW states she knew of none but would check with her team to see if they knew of any resources. Explained there may be noresources at this time to assist with the oils cost. Pt states understanding. PLAN: CCSW will send out RESAW TAILER information Pt will outreach as needed CCSW will follow up in 3-4 weeks, CCSW will follow up sooner if resources for cannabis oil are located Aida Hdz, Social Work Revenue Cycle Analyst, [facility], [facility]: [facility] and [place] P:[phone]/ Signed December 11, 2016 documented in this encounter Plan of Treatment Not on filedocumented as of this encounter Visit Diagnoses Not on filedocumented in this encounter Additional Health Concerns Assessment Noted Time PHQ-9 Depression Total Score: 5 03/20/2016 7:18 AM CDT documented as of this encounter Care Teams Account Manager Education Relationship Specialty Start Date End Date Carlos Chapman PCP - General Family Practice 02/06/14 04/29/19 MD Saw Carlos Chapman PCP - Assigned PCP 06/28/16 08/02/[place] [id number] [facility] [place] [address] Aida Hdz, Clinic Revenue Cycle Analyst Water Tester - 12/12/15 01/21/17 [facility] Clinical Carlos Chapman Assigned PCP 06/28/16 02/24/20 [place] [id number] [address] [place] [address] documented as of this encounter
--- OUTSIDE RECORDS SUMMARY | 2022-03-31 16:54 | XMS_ITS | Encounter Summary ---
:1985 Author Organization [place] Address [address] [facility] [place] [address] Care Team Providers Name Role Phone Carlos Chapman MD Primary Care Provider [phone] Carlos Chapman MD Unavailable Carlos Chapman MD Unavailable Reason for Visit Reason Onset Date Comments Patient/info Update 02/15/2017 appt on Wednesday PCP Encounter Details Date Type Department Care Team Description 02/15/2017 Telephone [facility] Carlos Chapman Patient/i nfo Update Clinic Anjel Spring MD (appt on Wednesday [facility], [address] [place] [address] AUNG GEE with PCP) [address] [place] [address] [place], [place] [phone] (Wo rk) [address] [phone] Social History Tobacco Use Types Packs/Day Years Used Date Smoking Tobacco: Light Smoker Pipe Smokeless Tobacco: Never Alcohol Use Standard Drinks/Week Comments Yes 0 (1 standard drink = 0.6 oz pure alcoho l) couple drinks per month Sex Assigned at Date Recorded Not on file documented as of this encounter Miscellaneous Notes Telephone Encounter - Aida Hdz - 02/15/2017 11:23 AM CDT Unfortunately I am not able to attend as I have meetings almost all day. I called the patient and informed him of this. He states this is ok and my presence is not necessaryto continue with his appointment. Aida Hdz, Social Work Hospital Social Worker, [facility], [facility]: [place], [place] and [place] P:[phone]/ Signed February 15, 2017 Telephone Encounter - Eros Aracelis Cristóbal - 02/15/2017 10:26 AM CDT Patient scheduled an appointment on Wednesday with PCP. He is requesting to have you come to his appointment. If you are not available please let him know. Thanks Aracelis Cooney Electronics Mechanic Apprentice documented in this encounter Plan of Treatment Not on filedocumented as of this encounter Visit Diagnoses Not on filedocumented in this encounter Additional Health Concerns Assessment Noted Time PHQ-9 Depression Total Score: 5 03/20/2016 7:18 AM CDT documented as of this encounter Care Teams Photoengraving Machine Operator/Tender Relationship Specialty Start Date End Date Carlos Chapman MD PCP - General Family Practice 02/06/14 04/29/19 Carlos Chapman MD PCP - Assigned PCP 06/28/16 08/02/18 [id number] [address] [id number] Carlos Chapman MD Assigned PCP 06/28/16 02/24/20 [address] [address] [id number] documented as of this encounter
--- OUTSIDE RECORDS SUMMARY | 2022-03-31 16:54 | XMS_ITS | Encounter Summary ---
:1985 Author Organization [place] Address [address] [place] [address]. [place] [address] Care Team Providers Name Role Phone Carlos Chapman MD Primary Care Provider [phone] Carlos Chapman MD Unavailable Carlos Chapman MD Unavailable Encounter Details Date Type Department Care Team Description 08/18/2017 Office Visit [facility] Audiology Teodora, Sensorineural hearing [address] [facility] Arlene, AuD loss, bilateral 4th Floor [address] [facility] (Primary Dx) [place] [address] [id number] Social History Tobacco Use Types Packs/Day Years Used Date Smoking Tobacco: Former Pipe Smokeless Tobacco: Never Alcohol Use Standard Drinks/Week Comments No 0 (1 standard drink = 0.6 oz pure alcoho l) Sex Assigned at Date Recorded Not on file documented as of this encounter Progress Notes Arlene Araiza, AuD - 08/18/2017 9:00 AM CDT AUDIOLOGY REPORT BACKGROUND INFORMATION: Ronn Hinkle was seen in the Audiology Clinic at the [facility] on 08/18/2017 for follow-up. The patient has been seen previously at an outside clinic on 04/13/2016 and results revealed a bilateral essentially sensorineural hearing loss. The patient was fit with binaural ReSound Linx2 7 hearing aids on 08/25/2016. The patient reports that he got a new Android phone and the hearing aids are not connected to it. He also reports he has not been able to wear the hearing aids since he got them due to drainage in the ears and thehearing aids being too noisy. TEST RESULTS AND PROCEDURES: A hearing aid check was performed, a listening check revealed that the hearing aids sounded crisp and clear with no distortion or weakness noted. Adjustments were made including re-setting auto-acclimatize to the beginning and decreased high frequency gain 3 dB. Noise management was also increased. It was reviewed with the patient that because he has not been wearing the hearing aids, it is normal and expected for there to be another adjustment period. It was reviewed that the brain typically takes 3 weeks of full-time use to adjust to how things sound with the hearing aids. He expressed understanding. It was reviewed that the hearing aids only connect with iPhones and not Android. It was discussed that if he wanted to be able to use the hearing aids with his phone he would need an iPhone again or purchase a phone clip to use with the Android. When asked, patient stated he still had the initial [employer] blue bag from the hearing aid fitting last year, in it are user guides that he can use to connect the hearing aids to an iPhone if he changes. It was discussed that the volume control is active on the hearing aids so he does have some control over settings. He expressed understanding. SUMMARY AND RECOMMENDATIONS: A hearing aid check was performed today. Adjustments were made as notedabove and the patient will return as needed or at least every 4-6 months for cleaning and assessmentof hearing aid. Call this clinic with questions regarding today???s visit. Bora Gonzalez Wad Compressor Operator Adjuster [place] License #[id number] documented in this encounter Plan of Treatment Not on filedocumented as of this encounter Procedures Procedure Name Priority Date/Time Associated Diagnosis Comme [facility] HEARING AID CHECK, Routine 08/18/2017 10:10 AM Sensorineura l hearing BINAURAL CDT loss, bilateral documented in this encounter Visit Diagnoses Diagnosis Sensorineural hearing loss, bilateral - Primary documented in this encounter Additional Health Concerns Assessment Noted Time PHQ-9 Depression Total Score: 5 03/20/2016 7:18 AM CDT documented as of this encounter Care Teams Cable Operator Relationship Specialty Start Date End Date Carlos Chapman MD PCP - General Family Practice 02/06/14 04/29/19 Carlos Chapman MD PCP - Assigned PCP 06/28/16 08/02/18 [id number] BRUCE DLEUCA [id number] Carlos Chapman MD Assigned PCP 06/28/16 02/24/20 [id number] BRUCE DELUCA [id number] documented as of this encounter
--- OUTSIDE RECORDS SUMMARY | 2022-03-31 16:54 | XMS_ITS | Encounter Summary ---
:1985 Author Organization [place] Address [address] [facility] [place] [address] Care Team Providers Name Role Phone Carlos Chapman MD Primary Care Provider [phone] Aida Hdz LGSW Unavailable Carlos Chapman MD Unavailable Carlos Chapman MD Unavailable Reason for Visit Reason Comments Urgent Care Ear Problem Bilateral ear pain and seems to be getting worse. He has been having the pain for a couple days now a nd not improving. Encounter Details Date Type Department Care Team Description 12/26/[address] [facility] Mariana Ervin Left ot itis media, Urgent Care [place] Swenson PA-C unspecified [address] [facility] chronicity, [facility] BRUCE FRITZ [address] unspecified otitis [address] media [place] ([place] [address] Dx) [phone] Social History Tobacco Use Types Packs/Day Years Used Date Smoking Tobacco: Never Smokeless Tobacco: Never Alcohol Use Standard Drinks/Week Comments Yes 0 (1 standard drink = 0.6 oz pure alcoho l) couple drinks per month Sex Assigned at Date Recorded Not on file documented as of this encounter Last Filed Vital Signs Vital Sign Reading Time Taken Comments Blood Pressure 142/96 12/26/2016 2:19 PM CDT Pulse 86 12/26/2016 2:19 PM CDT Temperature 37.3 ??C (99.2 ??F) 12/26/2016 2:19 PM CDT Respiratory Rate 12 12/26/2016 2:19 PM CDT Oxygen Saturation 97% 12/26/2016 2:19 PM CDT Inhaled Oxygen Concentration - - Weight 90.7 kg (200 lb) 12/26/2016 2:19 PM CDT Height - - Body Mass Index 32.28 09/02/2016 7:46 AM CDT documented in this encounter Progress Notes Mariana Ervin PA-C - 12/26/2016 2:15 PM CDT SUBJECTIVE: Ronn Hinkle is a 31 year old male who presents with left ear pain for 3 day(s). Severity: moderate Timing:gradual onset, still present and worsening Additional symptoms include none. History of recurrent otitis: hx of ear issues Past Medical History: Diagnosis Date ??? Hypertension ??? Neuromuscular disorder (H) ??? Palpitations ??? Testicular cancer (H) 1998 Current Outpatient Prescriptions Medication Sig Dispense Refill ??? ibuprofen (ADVIL/MOTRIN) 600 MG tablet TAKE 1 TABLET BY MOUTH EVERY 6 HOURS NEEDED FOR MODERATE PAIN 30 tablet 3 ??? cholecalciferol (VITAMIN D3) 87430 UNITS capsule Take 1 capsule (50,000 Units) by mouth once a week 12 capsule 3 ??? fluticasone (FLONASE) 50 MCG/ACT spray Jenks 1-2 sprays into both nostrils daily 1 Bottle 3 ??? lisinopril (PRINIVIL/ZESTRIL) 20 MG tablet Take 1 tablet (20 mg) by mouth daily 90 tablet 1 ??? cetirizine HCl 10 MG CAPS Take 1 capsule by mouth daily as needed 30 capsule 1 ??? fluticasone (FLONASE) 50 MCG/ACT spray Jen[place] 1-2 sprays into both nostrils daily 1 Bottle 11 ??? medical cannabis oral liquid (Patient's own supply. Not a prescription) 0 Information only 0 ??? ibuprofen (ADVIL,MOTRIN) 200 MG tablet Take 3 tablets (600 mg) by mouth every 6 hours as needed 100 tablet 3 ??? acetaminophen (TYLENOL) 325 MG tablet Take 2 tablets (650 mg) by mouth every 6 hours as needed 40 tablet 0 ? ? alum & mag hydroxide-simethicone (MYLANTA/MAALOX) 200-200-20 MG/5ML SUSP Take 30 mLs by mouth every 4 hours as needed for indigestion 355 mL 0 ??? medical cannabis oral liquid (Patient's own supply. Not a prescription) 100 mLs (This is NOT a prescription, and does not certify that the patient has a qualifying medical condition for medical cannabis. The purpose of this order is to document that the patient reports taking medical cannabis.) 0 Information only 0 Social History Substance Use Topics ??? Smoking status: Never Smoker ??? Smokeless tobacco: Never Used ??? Alcohol use 0.0 oz/week 0 Standard drinks or equivalent per week Comment: couple drinks per month ROS: Review of systems negative except as stated above. OBJECTIVE: BP (!) 142/96 (BP Location: Right arm, Patient Position: Sitting, Cuff Size: Adult Regular) Pulse 86 Temp 99.2 ??F (37.3 ??C) (Oral) Resp 12 Wt 200 lb (90.7 kg) SpO2 97% BMI 32.28 kg/m2 EXAM: The right TM is normal: no effusions, no erythema, and normal landmarks The right auditory canal is normal and without drainage, edema or erythema The left TM is erythematous The left auditory canal is normal and without drainage, edema or erythema Oropharynx exam is normal: no lesions, erythema, adenopathy or exudate. GENERAL: no acute distress EYES: EOMI, PERRL, conjunctiva clear NECK: supple, non-tender to palpation, no adenopathy noted RESP: lungs clear to auscultation - no rales, rhonchi or wheezes CV: regular rates and rhythm, normal S1 S2, no murmur noted SKIN: no suspicious lesions or rashes assessment/plan: (H66.92) Left otitis media, unspecified chronicity, unspecified otitis media type (primary encounterdiagnosis) Comment: Plan: amoxicillin-clavulanate (AUGMENTIN) 875-125 MG per tablet Med as directed and OTC med for sx relief. FU with PCP as needed if sx worsen or new sx develop documented in this encounter Nursing Notes Shaye Bautista RN - 12/26/2016 2:15 PM CDT Chief Complaint Patient presents with ??? Urgent Care ??? Ear Problem Bilateral ear pain and seems to be getting worse. He has been having the pain for a couple days nowand not improving. Initial BP (!) 142/96 (BP Location: Right arm, Patient Position: Sitting, Cuff Size: Adult Regular) Pulse 86 Temp 99.2 ??F (37.3 ??C) (Oral) Resp 12 Wt 200 lb (90.7 kg) SpO2 97% BMI 32.28 kg/m2 Estimated body mass index is 32.28 kg/(m^2) as calculated from the following: Height as of 09/02/16: 5' 6 (1.676 m). Weight as of this encounter: 200 lb (90.7 kg).. BP completed using cuff size: regular Shaye Bautista R.N. documented in this encounter Plan of Treatment Not on filedocumented as of this encounter Visit Diagnoses Diagnosis Left otitis media, unspecified chronicit y, unspecified otitis media type - Primary documented in this encounter Additional Health Concerns Assessment Noted Time PHQ-9 Depression Total Score: 5 03/20/2016 7:18 AM CDT documented as of this encounter Care Teams Mirror Maker Relationship Specialty Start Date End Date Carlos Chapman PCP - General Family Practice 02/06/14 04/29/19 MD Saw Carlos Chapman PCP - Assigned PCP 06/28/16 08/02/[place] [id number] BRUCE DELUCA [id number] Aida Hdz, Clinic Soil Fertility Extension Specialist Data Steward - 12/12/15 01/21/17 [facility] Clinical Carlos Chapman Assigned PCP 06/28/16 02/24/20 [place] [id number] BRUCE DELUCA [id number] documented as of this encounter
--- OUTSIDE RECORDS SUMMARY | 2022-03-31 16:54 | XMS_ITS | Encounter Summary ---
:1985 Author Organization [place] Address [address] [place] [address]. [place] [address] Care Team Providers Name Role Phone Carlos Chapman MD Primary Care Provider [phone] Carlos Chapman MD Unavailable Carlos Chapman MD Unavailable Reason for Visit Reason Comments Clinic Care Coordination - Follow-up ccsw Encounter Details Date Type Department Care Team Description 02/08/2017 Care Coordination [facility] Carlos Chapman Care Care Coordination MD Saw Coordination - [address] [place] [id number] [place] Follow-up ( ccsw) [place] [address] Social History Tobacco Use Types Packs/Day Years Used Date Smoking Tobacco: Light Smoker Pipe Smokeless Tobacco: Never Alcohol Use Standard Drinks/Week Comments Yes 0 (1 standard drink = 0.6 oz pure alcoho l) couple drinks per month Sex Assigned at Date Recorded Not on file documented as of this encounter Progress Notes Aida Hdz - 02/08/2017 2:14 PM CDT Clinic Care Coordination Contact Care Team Conversations Met with this patient in person at the [facility] clinic. Patient discussed his life stressors including difficulty with his ex spouse. States he needs his medical records to bring to court to prove his disability hx. Patient received his OV notes from his PCP back to 2013. Patient read through them and has a concernfor OV note from . Would like the word high clarified to reflect if the patient meant his blood pressure was high or high from cannabis. Feels His exspouse would press on this if not clarified. Pt would like to explore the options of holistic vs medical approach and may find new provider. Patient also would like to get his xrays on file from his doctor that providers his Nuca treatment. CCSW gave him a [place] RAJINDER and explained how to fill it out. The patient's PCP is out on vacation and will return in 1 week. CCSW will outreach then and discuss the 08/04 encounter Aida Hdz Social Work Machine Sorter, [facility], [facility] Clinics: [facility] P:[phone]/ Signed February 08, 2017 Aida Hdz - 02/08/2017 9:13 AM CDT Clinic Care Coordination Contact Care Team Conversations Incoming call from the patient Would like to meet this CCSw in person to go over some concerns. Agrees to meet this CCSw at the [facility] at 1pm today. Aida Hdz Social Work Machine Sorter, [facility], [facility] Clinics: [facility] P:[phone]/ Signed February 08, 2017 documented in this encounter Plan of Treatment Not on filedocumented as of this encounter Visit Diagnoses Not on filedocumented in this encounter Additional Health Concerns Assessment Noted Time PHQ-9 Depression Total Score: 5 03/20/2016 7:18 AM CDT documented as of this encounter Care Teams Supervisor Boat Outfitting Relationship Specialty Start Date End Date Carlos Chapman MD PCP - General Family Practice 02/06/14 04/29/19 Carlos Chapman MD PCP - Assigned PCP 06/28/16 08/02/18 [address] [place] [address] Carlos Chapman MD Assigned PCP 06/28/16 02/24/20 [id number] BRUCE DELUCA [id number] documented as of this encounter
--- OUTSIDE RECORDS SUMMARY | 2022-03-31 16:54 | XMS_ITS | Encounter Summary ---
:1985 Author Organization [place] Address [address] [place] [address] Care Team Providers Name Role Phone Carlos Chapman MD Primary Care Provider [phone] Aida Hdz LGSW Unavailable Carlos Chapman MD Unavailable Carlos Chapman MD Unavailable Reason for Visit Reason Onset Date Comments Patient Request for Note/Letter 11/04/2016 Insuranc e letter Encounter Details Date Type Department Care Team Description 11/04/2016 Telephone [facility] Carlos Chapman Patient R equest for Clinic Anjel Spring MD Note/Letter (Insurance [address] [place] [address], [address] [place] [address] letter) [address] [place] [address] [place], [place] [phone] (Wo rk) [address] [phone] Social History Tobacco Use Types Packs/Day Years Used Date Smoking Tobacco: Never Smokeless Tobacco: Never Alcohol Use Standard Drinks/Week Comments Yes 0 (1 standard drink = 0.6 oz pure alcoho l) couple drinks per month Sex Assigned at Date Recorded Not on file documented as of this encounter Miscellaneous Notes Telephone Encounter - Yaritza Blackwood - 11/04/2016 2:53 PM CDT LVM informed that note is at front desk worker ready and for tile picker. Salvatore Blackwood Blasting Worker 11/04/16 Telephone Encounter - Carlos Chapman MD - 11/04/2016 1:15 PM CDT Letter ready to tile picker Carlos Chapman MD Telephone Encounter - Cortney Ward RN - 11/04/2016 11:40 AM CDT PCP please advise. I see pt. has chronic pain syndrome. Ok to write letter? Pt. Requesting letter to submit to insurance for coverage as he is participating in Chiropractic treatment for Spine Alignment. He would like PCP to review imaging and treatment plan that is writtien by [facility] to confirm tx is viable for his condition. Triage advised pt. To sign a RAJINDER. He agreed to plan and will come into clinic and sign one. Cortney Ward, RN, BSN, PHN documented in this encounter Plan of Treatment Not on filedocumented as of this encounter Visit Diagnoses Not on filedocumented in this encounter Additional Health Concerns Assessment Noted Time PHQ-9 Depression Total Score: 5 03/20/2016 7:18 AM CDT documented as of this encounter Care Teams Proof Machine Operator Supervisor Relationship Specialty Start Date End Date Carlos Chapman PCP - General Family Practice 02/06/14 04/29/19 MD Saw Carlos Chapman PCP - Assigned PCP 06/28/16 08/02/18 [place] [id number] BRUCE DELUCA [id number] Aida Hdz, Clinic Line Decorator Cattle Broker - 12/12/15 01/21/17 [facility] Clinical Carlos Chapman Assigned PCP 06/28/16 02/24/[place] [id number] BRUCE DELUCA [id number] documented as of this encounter
--- OUTSIDE RECORDS SUMMARY | 2022-03-31 16:54 | XMS_ITS | Encounter Summary ---
:1985 Author Organization [place] Address [address] [place] [address] Care Team Providers Name Role Phone Carlos Chapman MD Primary Care Provider [phone] Aida Hdz LGSW Unavailable Carlos Chapman MD Unavailable Carlos Chapman MD Unavailable Reason for Visit Reason Comments Hypertension follow up Encounter Details Date Type Department Care Team Description 09/02/2016 Office Visit [facility] Carlos Chapman Benign es sential hypertension (Primary Dx); Clinic Anjel Spring MD Hearing loss of both ears [place] [address] [facility], [address] [place] [id number] Social History Tobacco Use Types Packs/Day Years Used Date Smoking Tobacco: Never Smokeless Tobacco: Never Alcohol Use Standard Drinks/Week Comments Yes 0 (1 standard drink = 0.6 oz pure alcoho l) couple drinks per month Sex Assigned at Date Recorded Not on file documented as of this encounter Last Filed Vital Signs Vital Sign Reading Time Taken Comments Blood Pressure 126/86 09/02/2016 7:46 AM CDT Pulse 78 09/02/2016 7:46 AM CDT Temperature 37.1 ??C (98.7 ??F) 09/02/2016 7:46 AM CDT Respiratory Rate 16 09/02/2016 7:46 AM CDT Oxygen Saturation 99% 09/02/2016 7:46 AM CDT Inhaled Oxygen Concentration - - Weight 93.6 kg (206 lb 6.4 oz) 09/02/2016 7:46 AM CDT Height 167.6 cm (5' 6) 09/02/2016 7:46 AM CDT Body Mass Index 33.31 09/02/2016 7:46 AM CDT documented in this encounter Patient Instructions Patient InstructionsBeCarlos segovia MD - 09/02/2016 7:40 AM CDT Swimmer's Ear is a yeast infection of the ear canal. Yeast like warm, moist environments, and wet ear canals from frequent swimming is a perfect place. To help prevent swimmer's ear make a mixture of 1/2 rubbing (isopropyl) alcohol and 1/[address] 2-3 drops in each ear after swimming. The alcohol will help dry the ear and the vinegar willdiscourage yeast growth (who don't like acidic environments). documented in this encounter Progress Notes Carlos Chapman MD - 09/02/2016 7:40 AM CDT HPI SUBJECTIVE: Ronn Hinkle is a 30 year old male who presents to clinic today for the following health issues: Hypertension Follow-up ?? Outpatient blood pressures are not being checked. ?? Low Salt Diet: not monitoring salt ?? Amount of exercise or physical activity: 2-3 days/week for an average of greater than 60 minutes ?? Problems taking medications regularly: No ?? Medication side effects: none ?? Diet: regular (no restrictions) Fewer palpitations, easing up on cardio, switching to more gentle forms (yoga, swimming). Hearing aids working well, struggling with outer ear infections since using. Review of Systems Constitutional: Negative. Respiratory: Negative. Cardiovascular: Negative. Musculoskeletal: Positive for back pain, joint pain, myalgias and neck pain. Neurological: Positive for tingling and sensory change. Physical Exam Constitutional: He is oriented to [...] Benign essential hypertension (primary encounter diagnosis) Comment: well controlled today Plan: continue meds (H91.93) Hearing loss of both ears Comment: Plan: discussed swimmer's ear drops. RTC in Carlos Chapman MD documented in this encounter Nursing Notes Allison Bentley CMA - 09/02/2016 7:40 AM CDT Chief Complaint Patient presents with ??? Hypertension follow up Initial BP 126/86 (BP Location: Right arm, Patient Position: Chair, Cuff Size: Adult Large) Pulse 78 Temp 98.7 ??F (37.1 ??C) (Oral) Resp 16 Ht 5' 6 (1.676 m) Wt 206 lb 6.4 oz (93.6 kg) SpO2 99% BMI 33.31 kg/m2 Estimated body mass index is 33.31 kg/(m^2) as calculated from the following: Height as of this encounter: 5' 6 (1.676 m). Weight as of this encounter: 206 lb 6.4 oz (93.6 kg). Medication Reconciliation: incomplete Allison Bentley CMA (AAID) documented in this encounter Plan of Treatment Not on filedocumented as of this encounter Visit Diagnoses Diagnosis Benign essential hypertension - Primary Essential hypertension, benign Hearing loss of both ears Unspecified hearing loss documented in this encounter Additional Health Concerns Assessment Noted Time PHQ-9 Depression Total Score: 5 03/20/2016 7:18 AM CDT documented as of this encounter Care Teams Recreation Counselor Relationship Specialty Start Date End Date Carlos Chapman PCP - General Family Practice 02/06/14 04/29/19 MD Saw Carlos Chapman PCP - Assigned PCP 06/28/16 08/02/[place] [id number] BRUCE DELUCA [id number] Aida Hdz, Clinic Debeaker Cadastral Engineer - 12/12/15 01/21/17 [facility] Clinical Carlos Chapman Assigned PCP 06/28/16 02/24/[place] [id number] BRUCE DELUCA [id number] documented as of this encounter
--- OUTSIDE RECORDS SUMMARY | 2022-03-31 16:54 | XMS_ITS | Encounter Summary ---
:1985 Author Organization [place] Address [address] [place] [address] Care Team Providers Name Role Phone Carlos Chapman MD Unavailable [facility] Clin[facility]- Reason for Visit Reason Onset Date Comments Pt. Information/instruction 04/30/2019 Encounter Details Date Type Department Care Team Description 04/30/2019 Telephone [facility] Nurse Stanislav, Pt. Advisors BRUCE Sarah Information/instruction [address] [place] [address] Social History Tobacco Use Types Packs/Day Years Used Date Smoking Tobacco: Former Pipe Smokeless Tobacco: Never Alcohol Use Standard Drinks/Week Comments No 0 (1 standard drink = 0.6 oz pure alcoho l) Sex Assigned at Date Recorded Not on file documented as of this encounter Miscellaneous Notes Telephone Encounter - Keara Colorado RN - 04/30/2019 3:47 PM CST Mom calling for patient who is experiencing blurry vision and dizziness. She is asking if UC is open. It is closed. Denies triage, advised ER. Keara Colorado RN [place] [facility] TRICAL EXPERIMENTAL MECHANIC documented in this encounter Plan of Treatment Not on filedocumented as of this encounter Visit Diagnoses Not on filedocumented in this encounter Additional Health Concerns Assessment Noted Time PHQ-9 Depression Total Score: 5 03/20/2016 7:18 AM CDT documented as of this encounter Care Teams Technology Training Associate Relationship Specialty Start Date End Date [facility] And PCP - General 04/30/19 [facility]- [address] [place] [address] Carlos Chapman MD Assigned PCP 06/28/16 02/24/20 [id number] [address] [facility] [address] documented as of this encounter
--- OUTSIDE RECORDS SUMMARY | 2022-03-31 16:54 | XMS_ITS | Encounter Summary ---
:1985 Author Organization [place] Address [address] [facility] [place] [address] Care Team Providers Name Role Phone Carlos Chapman MD Primary Care Provider [phone] Aida Hdz [facility] Unavailable Carlos Chapman MD Unavailable Carlos Chapman MD Unavailable Reason for Visit Diagnostic Imaging MRI - Closed Specialty Diagnoses / Procedures Referred By Contact Refer red To Contact Diagnoses Pain in extremity, unspecified extremity Sensory disturbance Limb weakness History of testicular cancer Davi Presley MD Procedures MR Cervical Spine w/o & w Contrast [address] [place] [address] Referral ID Status Reason Start Date Expiration Date Visits Requ ested Visits Authorized [id number] Closed 12/08/2016 12/08/2017 1 1 Encounter Details Date Type Department Care Team Description 12/06/2016 Radiant Appointment [facility] Davi Presley Pain in extremity, unspecified extremity; Center MRI MD Abhishek Sensory disturbance; [address] [facility] [address] Limb weakness; 1st Floor History [place] [address] Social History Tobacco Use Types Packs/Day Years [...] Name Priority Date/Time Associated Diagnosis Comme nts MR CERVICAL SPINE Routine 12/06/2016 12:00 PM Pain in extremit y, Results for this W/O & W CONTRAST CDT unspecified procedure a re in extremity the results Sensory disturba nce section. Limb weakness History of testicular cancer documented in this encounter Results MR Cervical Spine w/o [...] 12:00 PM History: Limb weakness, numbness and amrisol n. History of testicular CA, Pain in [...] testis Additional history from the EMR:Hx testi cultati CA 1998 treated with Cisplatin and surgery [...] findings. JAE PRATT MD Davi Presley MD [facility] MRI ORDERABLES documented in this encounter Visit Diagnoses Diagnosis Pain in extremity, unspecified extremity Sensory disturbance Disturbance of skin sensation Limb weakness Other musculoskeletal symptoms referable to limbs History of testicular cancer Personal history of malignant neoplasm o f testis documented in this encounter Administered Medications Inactive Administered Medications - up to 3 most recent administrations Medication Order MAR Action Action Date Dose Rate Site gadobutrol (GADAVIST) injection Given 12/06/2016 12:00 PM CDT 10 mLs 10 mL 10 mL, Intravenous, ONCE, On 12/06/16 at 1200, For 1 dose, Supplied by, and administered by MRI. documented in this encounter Additional Health Concerns Assessment Noted Time PHQ-9 Depression Total Score: 5 03/20/2016 7:18 AM CDT documented as of this encounter Care Teams Company Marker Relationship Specialty Start Date End Date Carlos Chapman PCP - General Family Practice 02/06/14 04/29/19 MD Saw Carlos Chapman PCP - Assigned PCP 06/28/16 08/02/[place] [id number] [address] [id number] Aida Hdz, Clinic Railway Traction Line Worker Beater Head - 12/12/15 01/21/17 [facility] Clinical Carlos Chapman Assigned PCP 06/28/16 02/24/[place] [id number] BRUCE DELUCA [id number] documented as of this encounter
--- OUTSIDE RECORDS SUMMARY | 2022-03-31 16:54 | XMS_ITS | Encounter Summary ---
:1985 Author Organization [place] Address [address] [facility] [place] [address] Care Team Providers Name Role Phone Carlos Chapman MD Primary Care Provider [phone] Aida Hdz [facility] Unavailable Carlos Chapman MD Unavailable Carlos Chapman MD Unavailable Reason for Visit Reason Comments Medication Refill ibuprofen (ADVIL/MOTRIN) 600 MG tablet Encounter Details Date Type Department Care Team Description 10/28/2016 Refill [facility] Carlos Chapman Medicatio n Refill Clinic [place] MD Saw (ibuprofen [id number] [address] (ADVIL/MOTRIN) 600 MG [place], [place] [address] tablet) [phone] Social History Tobacco Use Types Packs/Day Years Used Date Smoking Tobacco: Never Smokeless Tobacco: Never Alcohol Use Standard Drinks/Week Comments Yes 0 (1 standard drink = 0.6 oz pure alcoho l) couple drinks per month Sex Assigned at Date Recorded Not on file documented as of this encounter Miscellaneous Notes Telephone Encounter - Margareth Devries RN - 10/28/2016 3:47 PM CDT Prescription approved per [facility] Refill Protocol. Margareth Devries RN Telephone Encounter - Jossy Arias - 10/28/2016 2:38 PM CDT ibuprofen (ADVIL/MOTRIN) 600 MG tablet Last Written Prescription Date: 06/12/16 Last Quantity: 30, # refills: 1 Last Office Visit with [facility], [facility] or [facility] prescribing provider: 09/02/2016 Creatinine Date Value Ref Range Status 08/18/2016 0.96 0.66 - 1.25 mg/dL Final Lab Results Component Value Date AST 32 08/18/2016 Lab Results Component Value Date ALT 63 08/18/2016 BP Readings from Last 3 Encounters: 09/02/16 126/86 08/04/16 (!) 136/98 06/22/16 135/79 Jossy Arias XRLisa October 28, 2016 2:39 PM documented in this encounter Plan of Treatment Not on filedocumented as of this encounter Visit Diagnoses Diagnosis Other acute nonsuppurative otitis media of left ear documented in this encounter Additional Health Concerns Assessment Noted Time PHQ-9 Depression Total Score: 5 03/20/2016 7:18 AM CDT documented as of this encounter Care Teams Psychiatric Orderly Relationship Specialty Start Date End Date Carlos Chapman PCP - General Family Practice 02/06/14 04/29/19 MD Saw Carlos Chapman PCP - Assigned PCP 06/28/16 08/02/[place] [id number] [address]UCA [id number] Aida Hdz, Clinic Center Consultant Dye Worker - 12/12/15 01/21/17 [facility] Clinical Carlos Chapman Assigned PCP 06/28/16 02/24/[place] [id number] BRU[address]UCA [id number] documented as of this encounter
--- OUTSIDE RECORDS SUMMARY | 2022-03-31 16:54 | XMS_ITS | Encounter Summary ---
:1985 Author Organization [place] Address [address] [place] [address]. [place] [address] Care Team Providers Name Role Phone Carlos Chapman MD Primary Care Provider [phone] Aida Hdz [facility] Unavailable Carlos Chapman MD Unavailable Carlos Chapman MD Unavailable Encounter Details Date Type Department Care Team Description 09/17/2016 Office Visit [facility] Audiology Teodora, Sensorineural hearing [facility] Bora Jacobs loss, bilateral 4th Floor [address] [facility] (Primary Dx) [place] [address] [phone] Social History Tobacco Use Types Packs/Day Years Used Date Smoking Tobacco: Never Smokeless Tobacco: Never Alcohol Use Standard Drinks/Week Comments Yes 0 (1 standard drink = 0.6 oz pure alcoho l) couple drinks per month Sex Assigned at Date Recorded Not on file documented as of this encounter Progress Notes Arlene Araiza AuD - 09/17/2016 10:30 AM CDT AUDIOLOGY REPORT BACKGROUND INFORMATION: Ronn Hinkle was seen in Audiology at the [facility] on 09/17/2016 for follow-up. The patient has been seen previously in this clinic and was fit with binaural ReSound Linx2 7 RITE hearing aids on 08/25/16. The patient reports that he is very happy with the hearing aids. He stated that he did not wear them as much as he would like as he was put on eardrops by his ENT for a potential ear infection and was instructed not to use the hearing aids while the potential infection cleared. He stated that some womans' voices can be very loud and feels that the high pitches are sometimes a little uncomfortable. He reports that he has begun hearing new sounds that he did not hear before which has been exciting. His only concern was that the hearing aids will occasionally shut off for a few seconds and turn back on. TEST RESULTS AND PROCEDURES: A first follow-up was performed. Patient reports hearing aids are working well and he has been wearing it consistently since ENT gave him the approval that the potential ear infection cleared. Adjustments were made including turning down the high frequency sounds 4 steps and changing the auto-acclimatization to turn up the volume over 3 months as he feels it was increasing too quickly. A call to the nut steamer was made regarding the hearing aids shutting off. Because it was happening inboth hearing aids at the same time, it is thought to be a programming issue and not a physical problem with the hearing aids. The nut steamer's outreach and education social worker recommended re-setting all of the environmental optimizers to 0 as Ronn is likely hearing the the changes between programs occur. He is nervous that there is a problem with the hearing aids. It was discussed that another set of hearing aids would be ordered from [facility] and if the problem does not resolve with the programming changes, he can return and pick-up a new set of hearing aids. He was in agreement with that plan. SUMMARY AND RECOMMENDATIONS: A first follow-up was performed today and the patient reports that he is overall very happy with the hearing aids. Adjustments were made as noted above and the patient willreturn as needed or at least every 4-6 months for cleaning and assessment of hearing aid. Patient will contact the clinic if the problem with the hearing aids shutting off is not resolved. A second set of ReSound Linx2 7 hearing aids will be ordered and kept in clinic for 1 month on the off-chance he would like to exchange out the hearing aids. The 45 day trial was reviewed with Ronn. If he does not contact the clinic, then it was discussed that it will be assumed he would like to keep his current set of hearing aids. Call this clinic with questions regarding today???s visit. Bora Gonzalez Data Analytics Specialist [place] License #[id number] documented in this encounter Plan of Treatment Not on filedocumented as of this encounter Procedures Procedure Name Priority Date/Time Associated Diagnosis Comme [facility] ASSESSMENT FOR Routine 09/17/2016 1:52 PM Sensorineural he aring HEARING AID CDT loss, bilateral documented in this encounter Visit Diagnoses Diagnosis Sensorineural hearing loss, bilateral - Primary documented in this encounter Additional Health Concerns Assessment Noted Time PHQ-9 Depression Total Score: 5 03/20/2016 7:18 AM CDT documented as of this encounter Care Teams Seamless Hosiery Knitter Relationship Specialty Start Date End Date Carlos Chapman PCP - General Family Practice 02/06/14 04/29/19 MD Saw Carlos Chapman PCP - Assigned PCP 06/28/16 08/02/[place] [id number] BRU[address] DELUCA [id number] Aida Hdz, Clinic Steel Erector Appeals Reviewer Veteran - 12/12/15 01/21/17 [facility] Clinical Carlos Chapman Assigned PCP 06/28/16 02/24/[place] [id number] BRU[address]UCA [id number] documented as of this encounter
--- OUTSIDE RECORDS SUMMARY | 2022-03-31 16:54 | XMS_ITS | Encounter Summary ---
:1985 Author Organization [place] Address [address] [place] [address]. [place] [address] Care Team Providers Name Role Phone Carlos Chapman MD Primary Care Provider [phone] Aida Hdz [facility] Unavailable Carlos Chapman MD Unavailable Carlos Chapman MD Unavailable Reason for Visit Reason Comments Chart Review Please [facility] Encounter Details Date Type Department Care Team Description 11/09/[address] [facility] Carlos Chapman Review Please Care Coordination MD Saw ([facility]) [address] [place] [id number] Social History Tobacco Use Types Packs/Day Years Used Date Smoking Tobacco: Never Smokeless Tobacco: Never Alcohol Use Standard Drinks/Week Comments Yes 0 (1 standard drink = 0.6 oz pure alcoho l) couple drinks per month Sex Assigned at Date Recorded Not on file documented as of this encounter Progress Notes Aida Hdz - 11/13/2016 11:52 AM CDT Clinic Care Coordination Contact Care Team Conversations Outreached to the patient and introduced role. Patient identified issues with his NUMEROLOGIST services. States his hours were recently cut and he would like to dispute this. Also states his current NUMEROLOGIST has not been reliable and [facility] has not been able to find a NUMEROLOGIST with more flexible hours. Briefly discussed options to call the county and dispute his new hour changes and looking for a new NUMEROLOGIST company. Pt will be on a vacation for a week with his sons. Asks to be contacted during the week of November 23wh he returns to discuss further. PLAN: Pt will outreach as needed CCSW will follow up in 2-3 weeks CCSW will send contact information and acces plan Aida Hdz Social Work Quality Nurse, [facility], [facility] Clinics: [facility] P:[phone]/ Signed November 13, 2016 ida Griggs - 11/11/2016 3:49 PM CDT Clinic Care Coordination Contact [facility]/Voicemail Clinical Data: IHP outreach Outreach attempted x 1. Straight to voicenvil. VM box is full Plan: cardiology coordinator will try again in 1-2 business days. Aida Hdz Social Work Quality Nurse, [facility], [facility] Clinics: [facility] P:[phone] / Signed November 11, 2016 ida Griggs - 11/09/2016 8:53 AM CDT Clinic Care Coordination Contact Clinic Care Coordination Chart Review Situation: Patient is listed on the IHP report provided by the [place] department of Human services and is identified as a high risk patient. Chart reviewed by social work palliative care specialist. Background: CCSW review chart for appropriateness of care coordination and to assess needs: [place] Utilization: ED Visits in last year: 2 Hospital visits in last year: 0 Last PCP appointment: 08/04/16 Need for follow up? No. Return in 6 months Missed Appointments: 14 Concerns: (na) Multiple Providers or Specialists: yes Need for follow up? No Audiology seen 10/05, follow up in 6 months Endocrinology seen 03/18 no follow up indicated Health Maintenance up to date: yes Insurance: [employer] [place] Concerns/problems: Cisplatin induced neuropathy, Hearing loss, Hx of testicular cancer Other important information: CC notes from 01/2016 indicate patient had NUMEROLOGIST services from [facility]. Assessment: Patient appears to have good follow up within the [facility] system and has used services appropriately. CCSW will outreach to introduce her role and offer CC Services if the pt is interested. Plan/Recommendations: CCSW will outreach within 1-2 business days Aida Hdz, Social Work Quality Nurse, [facility], [place] [employer] [facility] Clinics: [place], [place] and [place] P:[phone]/ Signed November 09, 2016 documented in this encounter Plan of Treatment Not on filedocumented as of this encounter Visit Diagnoses Not on filedocumented in this encounter Additional Health Concerns Assessment Noted Time PHQ-9 Depression Total Score: 5 03/20/2016 7:18 AM CDT documented as of this encounter Care Teams Medical Case Worker Relationship Specialty Start Date End Date Carlos Chapman PCP - General Family Practice 02/06/14 04/29/19 MD Saw Carlos Chapman PCP - Assigned PCP 06/28/16 08/02/[place] [id number] [address] [place] [id number] Aida Hdz, Clinic Quality Nurse Supervisor Alteration Workroom - 12/12/15 01/21/17 [facility] Clinical Carlos Chapman Assigned PCP 06/28/16 02/24/[place] [id number] BRUCE DELUCA [id number] documented as of this encounter
--- OUTSIDE RECORDS SUMMARY | 2022-03-31 16:54 | XMS_ITS | Encounter Summary ---
:1985 Author Organization [place] Address [address] [place] [address]. [place] [address] Care Team Providers Name Role Phone Carlos Chapman MD Primary Care Provider [phone] Carlos Chapman MD Unavailable Carlos Chapman MD Unavailable Reason for Visit Reason Comments Clinic Care Coordination - Follow-up ccsw Encounter Details Date Type Department Care Team Description 03/08/2017 Care Coordination [facility] Carlos Chapman Care Care Coordination MD Saw Coordination - [address] [place] [address] [place] Follow-up ( ccsw) [place] [address] Social History Tobacco Use Types Packs/Day Years Used Date Smoking Tobacco: Former Pipe Smokeless Tobacco: Never Alcohol Use Standard Drinks/Week Comments No 0 (1 standard drink = 0.6 oz pure alcoho l) Sex Assigned at Date Recorded Not on file documented as of this encounter Progress Notes Aida Hdz - 03/08/2017 2:48 PM CDT Clinic Care Coordination Contact Care Team Conversations Outreached to the patient for follow up. He states he has been doing well these last few weeks and has established with a new doctor in another system. CCSW asked if he would like his [place] chart updated to remove his current PCP, but the pt declined and stated he does not want to share any of that information. CCSW will not continue to follow this patient at this time as he is no longer utilizing the [employer] System[employer]ystem and he is stating he has no further concerns for the [employer] system. Aida Hdz, Social Work Teacher Asst, [facility], [facility] Clinics: [facility] and [place] P:[phone]/ Signed March 08, 2017 documented in this encounter Plan of Treatment Not on filedocumented as of this encounter Visit Diagnoses Not on filedocumented in this encounter Additional Health Concerns Assessment Noted Time PHQ-9 Depression Total Score: 5 03/20/2016 7:18 AM CDT documented as of this encounter Care Teams Bark Tanner Relationship Specialty Start Date End Date Carlos Chapman MD PCP - General Family Practice 02/06/14 04/29/19 Carlos Chapman MD PCP - Assigned PCP 06/28/16 08/02/18 [id number] BRUCE DELUCA [id number] Carlos Chapman MD Assigned PCP 06/28/16 02/24/20 [id number] BRUCE DELUCA [id number] documented as of this encounter
--- OUTSIDE RECORDS SUMMARY | 2022-03-31 16:54 | XMS_ITS | Encounter Summary ---
:1985 Author Organization [place] Address [address] [place] [address] Care Team Providers Name Role Phone Carlos Chapman MD Primary Care Provider [phone] Carlos Chapman MD Unavailable Carlos Chapman MD Unavailable Reason for Visit Reason Onset Date Comments Erroneous encounter-disregard 02/12/2017 Encounter Details Date Type Department Care Team Description 02/12/2017 Telephone [facility] Pain Management [facility] Pain Management Program, [facility] er-disregard [facility] [id number] [place] [address] [address] [place] [address] Social History Tobacco Use Types Packs/Day Years [...] documented as of this encounter Care Teams Stick Inserter Relationship Specialty Start Date End Date Carlos Chapman MD PCP - General Family Practice 02/06/14 04/29/19 Carlos Chapman MD PCP - Assigned PCP 06/28/16 08/02/18 [id number] BRUCE DELUCA [id number] Carlos Chapman MD Assigned PCP 06/28/16 02/24/20 [address] BRUCE DELUCA [id number] documented as of this encounter
--- OUTSIDE RECORDS SUMMARY | 2022-03-31 16:55 | XMS_ITS | Encounter Summary ---
:1985 Author Organization [facility] Address [address] [place] [place] [address] Care Team Providers Name Role Phone Carlos Chapman MD Primary Care Provider [phone] Aida Hdz [facility] Unavailable Reason for Visit Reason Comments Other left facial swelling, left e ar pain Encounter Details Date Type Department Care Team Description 03/19/2016 Emergency [facility] Sonya Mcginnis MD Otitis externa of [facility] Emergency Dep t [facility] ear, unspecified [address] chronicity, [place], [place] [address] unspecified type [id number] [place], [place] [id number] (Wo rk) Social History Tobacco Use Types Packs/Day Years Used Date Smoking Tobacco: Never Smokeless Tobacco: Never Alcohol Use Standard Drinks/Week Comments Yes 0 (1 standard drink = 0.6 oz pure alcoho l) couple drinks per month Sex Assigned at Date Recorded Not on file documented as of this encounter Last Filed Vital Signs Vital Sign Reading Time Taken Comments Blood Pressure 145/87 03/19/2016 7:30 PM CDT Pulse 86 03/19/2016 4:19 PM CDT Temperature 35.9 ??C (96.6 ??F) 03/19/2016 4:19 PM CDT Respiratory Rate 20 03/19/2016 4:19 PM CDT Oxygen Saturation 95% 03/19/2016 7:30 PM CDT Inhaled Oxygen Concentration - - Weight 92.1 kg (203 lb) 03/19/2016 4:19 PM CDT Height 170.2 cm (5' 7) 03/19/2016 4:19 PM CDT Body Mass Index 31.79 03/19/2016 4:19 PM CDT documented in this encounter Discharge Instructions Discharge InstructionsSonya Mcginnis MD - 03/19/2016 6:57 PM CDT Please follow up closely with your regular physician. Please continue the antibiotic ear drops that you were prescribed today. Please return to the ED if your symptoms worse or if you develop new or concerning symptoms. Discharge Instructions Otitis Externa Today you were seen for otitis externa which is a condition that occurs when the ear canal, which isthe area that leads from the outer ear to the ear drum, becomes irritated as a result of an infection, allergy or skin problem. The most common symptoms of this are: pain in the outer ear, especially when the ear is moved, itchiness of the ear, fluid or pus leaking from the ear and difficulty hearing clearly. Swimmer's ear is the name for external otitis that occurs in a person who swims frequently. Treatment: ??? Treatment of otitis externa aims to reduce pain and eliminate the infection. You should take either Advil?? (ibuprofen) or Tylenol?? (acetaminophen) for control of the ear pain. ??? Ear drops -- Ear drops are usually prescribed to both reduce pain and swelling and kill the bacteria which causes external otitis. It is important to apply the ear drops correctly so that they reach the ear canal: o Lie on your side or tilt your head towards the opposite shoulder. o Fill the ear canal with drops. o Lie on your side for [address] a cotton ball in the ear canal for 20 minutes. o Finish the entire course of treatment, even if you begin to feel better within a few days. o Avoid getting ears wet -- during treatment, you should avoid getting the inside of your ears wet. While showering, you can place a cotton ball coated with petroleum jelly in the ear. However, you should not swim for 7 to 10 days after starting treatment. Avoid wearing hearing aids and in-ear headphones until pain improves. o If a wick has been placed in your ear, please do not remove it until seen by your primary doctor or ENT as directed. Prevention: ??? Do not clean ear canal. Ear wax serves to protect the ears from water, bacteria, and injury. Excessive cleaning or scratching can injure the skin, potentially leading to infection. ??? Swimming on a regular basis removes some of the ear wax, allowing water to soften the skin. Bacteria, which normally live in the ear canal, can then enter the skin more easily. ??? Wearing devices that block the ear canals, such as hearing aids, headphones, or ear plugs, can increase the risk of external otitis (if worn frequently) by injuring the skin. If you swim frequently, experts recommend the following tips to reduce the chance of developing external otitis: ??? Shake your ears dry after swimming. ??? Use ear drops after swimming to prevent ear infections; these are available at most pharmacies without a prescription. ??? Consider wearing ear plugs made for swimming. If your symptoms are not improving in 36 - 48 hours you should be seen by your primary doctor or in an Urgent Care or Emergency Department. If you develop a high fever or worsening pain, please return to the Emergency Department for further evaluation. If you were given a prescription for [...] call or return to the Emergency Department. Opioid Medication Information Pain medications are among the most commonly prescribed medicines, so we are including this information for all our patients. If you did not receive pain medication or get a prescription for pain medicine, you can ignore it. You may have been given a prescription for an opioid (narcotic) pain medicine and/or have received apain medicine while here in the Emergency Department. These medicines can make you drowsy or impaired. You must not drive, operate dangerous equipment, or engage in any other dangerous activities whiletaking these medications. If you drive while taking these medications, you could be arrested for DUI, or driving under the influence. Do not drink any alcohol while you are taking these medications. Opioid pain medications can cause addiction. If you have a history of chemical dependency of any type, you are at a higher risk of becoming addicted to pain medications. Only take these prescribed medications to treat your pain when all other options have been tried. Take it for as short a time and asfew doses as possible. Store your pain pills in a secure place, as they are frequently stolen and provide a dangerous opportunity for children or visitors in your house to start abusing these powerful medications. We will not replace any lost or stolen medicine. As soon as your pain is better, you should flush all your remaining medication. Many prescription pain medications contain Tylenol?? (acetaminophen), including Vicodin??, Tylenol #3??, Nenzel??, Lortab??, and Percocet??. You should not take any extra pills of Tylenol?? if you are using these prescription medications or you can get very sick. Do not ever take more than 3000 mg of acetaminophen in any 24 hour period. All opioids tend to cause constipation. Drink plenty of water and eat foods that have a lot of fiber, such as fruits, vegetables, prune juice, apple juice and high fiber cereal. Take a laxative if you don???t move your bowels at least every other day. Miralax??, Milk of Magnesia, Colace??, or Senna?? can be used to keep you regular. Remember that you can always come back to the Emergency Department if you are not able to see your regular doctor in the amount of time listed above, [...] as needed 200-200-20 MG/5ML SUSP for indigestion ibuprofen Take 3 tablets 100 tablet 3 02/10/2016 (ADVIL,MOTRIN) 200 MG (600 mg) by mouth tabletIndications: every 6 hours as Cisplatin induced needed neuropathy (H) medical cannabis oral 0 Information 0 liquid [...] that the patient reports taking medical cannabis.) ondansetron (ZOFRAN Take 1 tablet (4 10 tablet 0 03/19/2016 03/22/2016 ODT) 4 MG mg) by mouth disintegrating tablet every 8 hours as needed for nausea cholecalciferol Take 1 capsule 12 capsule 0 03/29/201606/03 (VITAMIN D3) 30670 (50,000 Units) by UNITS mouth once a week capsuleIndications: Vitamin D deficiency cholecalciferol Take 1 capsule 24 capsule 1 03/19/201603/29 (VITAMIN D3) 88153 (50,000 Units) by UNITS mouth twice a capsuleIndications: week Vitamin D deficiency fluticasone (FLONASE) Broussard 1-2 sprays 1 Bottle 3 01/03/20 16 08/17/2016 50 MCG/ACT nasal into both sprayIndications: nostrils daily Seasonal allergic rhinitis lisinopril Take 1 tablet (20 90 tablet 1 03/03/2016 017 (PRINIVIL,ZESTRIL) 20 mg) by mouth MG tabletIndications: daily Benign essential hypertension [id number] Place 4 drops 10 mL 0 03/19/2016 04/18/2016 rocortisone Into the left ear (CORTISPORIN) 4 times daily [id number] otic suspensionIndications: Acute otitis externa of left ear, unspecified type documented as of this encounter ED Notes Sonya Mcginnis MD - 03/19/2016 4:42 PM CDT History Chief Complaint: Left facial swelling and left ear pain SHAWNA Hinkle is a 30 year old male who presents with left-sided facial swelling and left ear pain.The patient reports that 3 weeks ago he had jaw pain, right-sided facial swelling, right ear pain and drainage, for which he was seen and administered antibiotics to treat. Yesterday, he developed left-sided facial pain and left ear pain began (reported as feeling similar to the experience 3 weeks agobut now on his left side) and was seen earlier today in Urgent Care in [place] for the ear pain, after having routine blood drawn, and given ear drops. He was having little to no improvement and persistent pain, prompting his visit here. The patient also notes difficulty eating and drinking secondary to pain, ear drainage appearing clear, pain in the back of the left side of his throat, pain on theleft side of his jaw, nausea, and photosensitivity. He also notes frequent swimming. The patient denies a fever or vomiting. Allergies: No known drug allergies Medications: Cortisporin Vitamin D3 Medical cannabis oral liquid Prinivil, Zestril Ibuprofen Flonase Tylenol Mylanta/Maalox Past Medical History: Testicular Cancer (H) Palpitations Hypertension Neuromuscular Disorder Chronic Pain Syndrome Cisplatin induced neuropathy Past Surgical History: Orchiectomy inguinal Family History: Obesity Multiple Sclerosis and brain aneurysm - maternal uncle Lymphoma - maternal uncle CAD Myocardial Infarction - maternal grandfather Stomach cancer - paternal grandfather Social History: Smoking status: never Alcohol use: couple drinks/month Marital Status: Single Review of Systems Constitutional: Positive for appetite change. Negative for fever. HENT: Positive for ear discharge (left ear drainage, clear), ear pain (left ear) and sore throat (back left side). Negative for facial swelling. Eyes: Positive for photophobia. Gastrointestinal: Positive for nausea. Negative for vomiting. Physical Exam Patient Vitals for the past 24 hrs: BP Temp Temp src Pulse Resp SpO2 Height Weight 03/19/16 1930 145/87 mmHg - - - - 95 % - - 03/19/16 1915 - - - - - 95 % - - 03/19/16 1900 (!) 156/95 mmHg - - - - 97 % - - 03/19/16 1845 - - - - - 95 % - - 03/19/16 1734 (!) 158/105 mmHg - - - - 97 % - - 03/19/16 1714 (!) 150/107 mmHg - - - - 97 % - - 03/19/16 1619 (!) 163/110 mmHg 96.6 ??F (35.9 ??C) Oral 86 20 98 % 1.702 m (5' 7) 92.08 kg (203 lb) Physical Exam Constitutional: The patient is oriented to person, place, and time. Alert and cooperative. HENT: Right Ear: External ear normal. TM normal appearing. Left Ear: no significant swelling or erythema of the pinna. Mild swelling to the external ear canal.No significant drainage. TM normal appearing. Tenderness with tugging of the pinna. No tenderness over the mastoid or erythema. Nose: Nose normal. Mouth/Throat: Uvula is midline, oropharynx is clear and moist and mucous membranes are normal. No posterior oropharyngeal edema or erythema. No dental tenderness of fluctuance around the dentition. Eyes: Conjunctivae, EOM and lids are normal. Pupils are equal, round, and reactive to light. Neck: Trachea normal. Normal range of motion. Neck supple. Cardiovascular: Normal rate, regular rhythm, normal heart sounds, and intact distal pulses. Pulmonary/Chest: Effort normal and breath sounds equal bilaterally. No crackles or wheezing. Abdominal: Soft. No tenderness. No rebound and no guarding. Musculoskeletal: Normal range of motion. No extremity tenderness or edema. Neurological: Alert and Oriented. Strength 5/5 in upper and lower extremities bilaterally. Sensationintact to light touch throughout. Skin: Skin is dry. No rash noted. Emergency Department Course Imaging: Radiographic findings were communicated with the patient who voiced understanding of the findings. Soft Tissue Neck CT with Contrast 1. No evidence for mastoiditis. 2. Skin thickening in the left external auditory canal. This could be due to otitis externa. Clinical correlation suggested.. ?? 3. The palatine tonsils appear normal. There is no evidence for any soft tissue abscess. As read by Radiology. Laboratory: CBC: WBC 11.9 (H), o/w WNL (HGB 15.4, PLT 204) BMP: WNL (Creatinine 1.09) Interventions: 1711 - Dilaudid 0.5 mg IV 1711 - NS 1L IV Bolus 1711 - Zofran 4 Mg IV 1733 - Dilaudid 0.5 mg IV 1924 - Dilaudid 0.5 mg IV 1928 - Zofran 4 mg IV The patient's symptoms were improved with parenteral narcotics. Emergency Department Course: Past medical records, nursing notes, and vitals reviewed. 1643: I performed an exam of the patient and obtained history, as documented above. IV inserted and blood drawn. The patient was sent for a CT-scan while in the emergency department, findings above. I personally reviewed the laboratory results with the Patient and answered all related questions prior to discharge. I rechecked the patient. Findings and plan explained to the Patient. Patient discharged home with instructions regarding supportive care, medications, and reasons to return as well as the importance ofclose follow-up was reviewed. Impression & Plan Medical Decision Making: Ronn Hinkle is a 30 year old male who presents for evaluation of left ear pain and facial pain. Upon presentation in the ED, the patient is non-toxic appearing. He is hypertensive, but vitals are otherwise within normal limits and stable. On exam, the patient is well appearing. The patient is alert, oriented, and neuro exam is non-focal. Cardiopulmonary exam is unremarkable. The abdomen is soft and non-tender throughout. He does have some pain with manipulation of the left pinna and mild swellingto the external ear canal. No significant drainage. TM normal appearing. No tenderness or erythema over the mastoid. The rest of the exam is as mentioned above. The patient has an exam consistent with otitis externa. Given the significant facial pain, CT imaging was obtained to evaluate for abscess. The CT demonstrates no evidence of mastoiditis or abscess. It is consistent with left otitis externa. Labs were obtained including CBC and BMP which were remarkable for very slightly elevated WBC, but was otherwise unremarkable. Differential considered in this patient with otalgia included mastoiditis, meningitis, perforation, cerumen impaction, mass, dental abscess, or peritonsillar abscess, referred pain, cholesteatoma, otitis externa, etc. However, his exam is consistent with an acute otitis externa. There is no evidence of malignant otitis externa or any of the other pathologies mentioned above. Overall, given that the patient is well appearing and is feeling improved after interventions, I do feel that the patient can be discharged to home. He was provided cortisporin otic at this visit to the earlier, thus I instructed the patient to continue taking this. The patient was given Zofran for nausea. The patient was instructed to follow up closely with their PCP. The patient states understanding and agreement with the plan. Return instructions were given. The patient was stable/improved at time of discharge. Diagnosis: ICD-10-CM 1. Otitis externa of left ear, unspecified chronicity, unspecified type H60.92 Discharge Medications: Details ondansetron (ZOFRAN ODT) 4 MG disintegrating tablet Take 1 tablet (4 mg) by mouth every 8 hours as needed for nausea, Disp-10 tablet, R-0, Local Print Al Garcia 03/19/2016 [facility] EMERGENCY [facility]PART[facility] I, Al Jose, quincy serving as a scribe at 4:43 PM on 03/19/2016 to document services personally performed by Sonya Mcginnis MD based on my observations and the provider's statements to me. Sonya Mcginnis MD 03/20/16 0109 Ashley Gomez RN - 03/19/2016 4:18 PM CDT Left facial swelling and left ear pain started yesterday. Was seen at the clinic today, started on ear drops. Pain is not any better, Came to ED. States same symptoms on the right side 3 weeks ago, had2 antibiotics then. ABCDs intact. documented in this encounter Plan of Treatment Not on filedocumented as of this encounter Procedures Procedure Name Priority Date/Time Associated Comments Diagnosis CT SOFT TISSUE NECK W STAT 03/19/2016 5:59 PM Results for this CONTRAST CDT procedure are i n the results section. CBC WITH PLATELETS & STAT 03/19/2016 5:10 PM R esults for this DIFFERENTIAL CDT procedure are i n the results section. BASIC METABOLIC PANEL STAT 03/19/2016 5:10 PM Results for this CDT procedure are i n the results section. documented in this encounter Results Soft tissue neck CT w contrast (03/19/2016 5:59 PM CDT) Anatomical Region Laterality Modality Neck, SUBRAD CT NEURO, SUBRAD CT NEURO, UMP CT NEURO Computed Tomography Specimen (Source) Anatomical Location Collection Method / Collectio n Time Received Time / Laterality Volume Impressions 03/19/2016 9:07 PM CDT IMPRESSION: ?? 1. No evidence for mastoiditis. 2. Skin thickening in the left external auditory canal. This could be due to otitis externa. Clinical correlat ion suggested.. ?? 3. The palatine tonsils appear normal. T here is no evidence for any soft tissue abscess. LEONA ORTIZ MD Narrative 03/19/2016 9:[address] SCAN OF THE NECK WITHCONTRAST ??03/19/2016 5:59 PM HISTORY: L facial pain, L throat pain TECHNIQUE: ??Axial images and coronal re formations with 100mL Isovue-370 iv contrast material. Radiati on dose for this scan was reduced using automated exposure control , adjustment of the mA and/or kV according to patient size, or iterati ve reconstruction technique. COMPARISON: None. FINDINGS: The mastoids are normally aera [place]. The middle ear cavities also appear normal. There is mild skin t hickening in the left external auditory canal compared to the right ext ernal auditory canal. This could be due to otitis externa. Visualized sinuses, nasopharynx and orbi ts: Normal. ?? Tongue and oropharynx: ??Normal. ?? Hypopharynx: Normal. ?? Larynx and trachea: Normal. ?? Upper mediastinum and lungs: Normal. Thyroid gland: Normal. Submandibular glands: Normal. ?? Parotid glands: Normal. ? Lymph nodes: Normal. ?? Vasculature: Normal. ?? The longus colli muscles are normal in a ppearance. The styloid processes are normal in length. No arter ial dissection is identified on these images. Procedure Note Jimmy Ortiz MD - 03/19/2016For matting of this note might be different from the original. CT SCAN OF THE NECK WITHCONTRAST 016 5:59 PM HISTORY: L facial pain, L throat pain TECHNIQUE: Axial images and coronal refo rmations with 100mL Isovue-370 iv contrast material. Radiati on dose for this scan was reduced using automated exposure control , adjustment of the mA and/or kV according to patient size, or iterati ve reconstruction technique. COMPARISON: None. FINDINGS: The mastoids are normally aera [place]. The middle ear cavities also appear normal. There is mild skin t hickening in the left external auditory canal compared to the right ext ernal auditory canal. This could be due to otitis externa. Visualized sinuses, nasopharynx and orbi ts: Normal. Tongue and oropharynx: Normal. Hypopharynx: Normal. Larynx and trachea: Normal. Upper mediastinum and lungs: Normal. Thyroid gland: Normal. Submandibular glands: Normal. Parotid glands: Normal. Lymph nodes: Normal. Vasculature: Normal. The longus colli muscles are normal in a ppearance. The styloid processes are normal in length. No arter ial dissection is identified on these images. IMPRESSION: 1. No evidence for mastoiditis. 2. Skin thickening in the left external auditory canal. This could be due to otitis externa. Clinical correlat ion suggested.. 3. The palatine tonsils appear normal. T here is no evidence for any soft tissue abscess. LEONA ORTIZ MD Sonya Mcginnis MD IMG CT ORDERABLES Basic metabolic panel (BMP) (03/19/2016 5:10 PM CDT) athologist Signature Sodium 139 133 - 144 [place] mmol/L [facility] Potassium 3.6 3.4 - 5.3 [place] mmol/L [facility] Chloride 105 94 - 109 [place] mmol/L [facility] Carbon Dioxide 27 20 - 32 [place] mmol/L [facility] Anion Gap 7 3 - 14 [place] mmol/L [facility] Glucose 91 70 - 99 [place] mg/dL [facility] Urea Nitrogen 14 7 - 30 [place] mg/dL [facility] Creatinine 1.09 0.66 - [place] 1.25 mg/dL [facility] GFR Estimate 79 >60 [place] mL/min/1.[address] Comment: Non GFR Calc GFR Estimate If Black >90 >60 mL/min/1.7m2 F [facility] GFR Calc HOSP ITAL Calcium 8.8 8.5 - 10.1 mg/dL [facility] Specimen Anatomical Collection Method Collection Time Receive d Time (Source) Location / / Volume Laterality Blood specimen 03/19/2016 5:10 PM 016 5:25 (specimen) CDT PM CDT Sonya Mcginnis MD LAB - BLOOD ORDERABLES Performing Organization Address City/State/ZIP Code Phon e Number M [place] [address] [address] [facility] [address] [address], [facility] [phone] (ABNORMAL) CBC + differential (03/19/2016 5:10 PM CDT) [facility] gist Method Time Signature WBC 11.9 (H) 4.0 - [place] 11.[address] RBC Count 4.97 4.4 - 5.9 [place] [id number] Hemoglobin 15.4 13.3 - [place] 17.7 g/dL [facility] Hematocrit 43.8 40.0 - [place] 53.0 % [facility] MCV 88 78 - 100 [facility] MCH 31.0 26.5 - [place] 33.0 pg [facility] MCHC 35.2 31.5 - [place] 36.5 g/dL [facility] RDW 12.4 10.0 - [place] 15.0 % [facility] Platelet Count 204 150 - [address] Diff Method Automated [place] Method [facility] % Neutrophils 69.3 % [facility] % Lymphocytes 14.7 % [facility] % Monocytes 11.0 % [facility] % Eosinophils 3.7 % [facility] % Basophils 0.4 % [facility] % Immature 0.9 % [place] Granulocytes [facility] Nucleated RBCs 0 0 /100 [facility] Absolute 8.2 1.6 - 8.3 [place] Neutrophil [address] [place] [address] Absolute 1.7 0.8 - 5.3 [place] Lymphocytes [address] [place] [address] Absolute 1.3 0.0 - 1.3 [place] Monocytes [address] [place] [address] Absolute 0.4 0.0 - 0.7 [place] Eosinophils [address] [place] [address] Absolute 0.1 0.0 - 0.2 [place] Basophils [address] [place] [address] Abs Immature 0.1 0 - 0.[address] [place] Granulocytes [address] [place] [address] Absolute 0.0 [place] Nucleated RBC [facility] Specimen Anatomical Collection Method Collection Time Receive d Time (Source) Location / / Volume Laterality Blood specimen 03/19/2016 5:10 PM 016 5:25 (specimen) CDT PM CDT Sonya Mcginnis MD LAB - BLOOD ORDERABLES Performing Organization Address City/State/ZIP Code Phon e Number M [facility] [address] [place], [place] [address] [facility] [address] [place], [place] [address] [phone] documented in this encounter Visit Diagnoses Diagnosis Otitis externa of left ear, unspecified chronicity, unspecified type documented in this encounter Administered Medications Inactive Administered Medications - up to 3 most recent administrations Medication Order MAR Action Action Date Dose Rate Site 0.9% sodium chloride BOLUS New Bag 03/19/2016 5:11 PM CDT 1,000 mLs 1000 mL/hr Intravenous, 1,000 mL, ONCE, at 1,000 mL/hr, Administer over 1 Hours, On Yes[place] 03/19/16 at 1659, For 1 dose 0.9% sodium chloride BOLUS New Bag 03/19/2016 5:49 PM CDT 65 mLs Intravenous, 1,000 mL, ONCE, On [place] 03/19/16 at 1748, For 1 dose HYDROmorphone (PF) (DILAUDID) injection 0.5 Given 03/19/2016 5:11 PM CDT 0.5 mg mg 0.5 mg, Intravenous, ONCE, On [place] 03/19/16 at 1659, For 1 dose HYDROmorphone (PF) (DILAUDID) injection 0.5 Given 03/19/2016 5:33 PM CDT 0.5 mg mg 0.5 mg, Intravenous, ONCE, On Yes[place] 03/19/16 at 1732, For 1 dose HYDROmorphone (PF) (DILAUDID) injection 0.5 Given 03/19/2016 7:24 PM CDT 0.5 mg mg 0.5 mg, Intravenous, ONCE, On [place] 03/19/16 at 1859, For 1 dose iopamidol (ISOVUE-370) 76% solution 500 mL Given 03/19/2016 5:47 PM CDT 100 mLs 500 mL, Intravenous, ONCE, On [place] 03/19/16 at 1748, For 1 dose ondansetron (ZOFRAN) 2 MG/ML injection Starting on Yes[place] 03/19/16 at 1928, For 1 dose, Gisele LUJAN: cabinet override ondansetron (ZOFRAN) injection 4 mg Given 03/19/2016 5:11 PM CDT 4 mg 4 mg, Intravenous, ONCE, Administer over 2-5 Minutes, On [place] 03/19/16 at 1703, For 1 dose ondansetron (ZOFRAN) injection 4 mg Given 03/19/2016 7:28 PM CDT 4 mg 4 mg, Intravenous, ONCE, Administer over 2-5 Minutes, On [place] 03/19/16 at 1927, For 1 dose documented in this encounter Active and Recently Administered Medications Times are shown in CDT. Scheduled Medication Order 03/17/2016 03/18/2016 03/19/2016 0.9% sodium chloride BOLUS (COMPLETED) 171 (New Bag - Provider: Anastasia Nielson RN)1942 (Stopped - Provider: Umm Lujan RN) Intravenous, 1,000 mL, ONCE, at 1,000 mL /hr, Administer over 1 Hours, On [place] 03/19/16 at 1659, For 1 dose 0.9% sodium chloride BOLUS (COMPLETED) 174 (New Bag - Provider: Arline Albarran)1754 (Stopped - Provider: Arline Albarran) Intravenous, 1,000 mL, ONCE, [place] 03/19/16 at 1748, For 1 dose HYDROmorphone (PF) (DILAUDID) injection 0.5 mg (COMPLETED) 171 (Given - Provider: Anastasia Nielson RN) 0.5 mg, Intravenous, ONCE, 1 dose, [place] 03/19/16 at 1659 HYDROmorphone (PF) (DILAUDID) injection 0.5 mg (COMPLETED) 1733 (Given - Provider: Anastasia Nielson RN) 0.5 mg, Intravenous, ONCE, 1 dose, [place] 03/19/16 at 1732 HYDROmorphone (PF) (DILAUDID) injection 0.5 mg (COMPLETED) 1924 (Given - Provider: Umm Lujan RN) 0.5 mg, Intravenous, ONCE, 1 dose, [place] 03/19/16 at 1859 iopamidol (ISOVUE-370) 76% solution 500 mL (COMPLETED) 1747 (Given - Provider: Arline Albarran) 500 mL, Intravenous, ONCE, [place] 03/19/16 at 1748, For 1 dose ondansetron (ZOFRAN) injection 4 mg (COMPLETED) 1711 (Given - Provider: Anastasia Nielson RN) 4 mg, Intravenous, ONCE, for 2 Minutes, [place] 03/19/16 at 1703, Fo r 1 dose ondansetron (ZOFRAN) injection 4 mg (COMPLETED) 1928 (Given - Provider: Umm Lujan RN) 4 mg, Intravenous, ONCE, for 2 Minutes, [place] 03/19/16 at 1927, Fo r 1 dose documented in this encounter Additional Health Concerns Assessment Noted Time PHQ-9 Depression Total Score: 5 03/20/2016 7:18 AM CDT documented as of this encounter Care Teams Systems Design Engineer Relationship Specialty Start Date End Date Carlos Chapman PCP - General Family Practice 02/06/14 04/29/19 MD Saw Aida Hdz, Clinic Hybrid Technologist Gutter Hanger - 12/12/15 01/21/17 [facility] Clinical documented as of this encounter
--- OUTSIDE RECORDS SUMMARY | 2022-03-31 16:55 | XMS_ITS | Encounter Summary ---
:1985 Author Organization [place] Address [facility] [place] [address] Care Team Providers Name Role Phone Carlos Chapman MD Primary Care Provider [phone] Aida Hdz LGSW Unavailable Reason for Visit Reason Onset Date Comments Nurse Advice Line 06/12/2016 Encounter Details Date Type Department Care Team Description 06/12/2016 Telephone [facility] Carlos Chapman, Nurse Advice Line Anjel BAEZA [id number] [place] [address], [address] [place] [address] [address] [place] [address] [place], [place] [phone] (Wo rk) [id number] [phone] Social History Tobacco Use Types Packs/Day Years Used Date Smoking Tobacco: Never Smokeless Tobacco: Never Alcohol Use Standard Drinks/Week Comments Yes 0 (1 standard drink = 0.6 oz pure alcoho l) couple drinks per month Sex Assigned at Date Recorded Not on file documented as of this encounter Miscellaneous Notes Telephone Encounter - Cortney Ward RN - 06/12/2016 11:53 AM FOREST OFFICER Spoke with Dr. Spears. Use cotton with bacitracin and try not to blow nose. Reassure pt. That ear drum is intact as graft was placed as well as packing. Cortney Ward, RN, BSN, PHN ST OFFICER Telephone Encounter - Cortney Ward RN - 06/12/2016 11:42 AM FOREST OFFICER Pt. Walks in requesting to have left ear looked at as he just had surgery on Wednesday. Pt. States he blew his nose forgetting not to do so. Pt. State he felt a little pain and heard a swoosh sound. drainlayer looked in ear canal noticed bloody drainage and ear drum not intact. Huddled with [place], noticed same; advise to speak with surgeon office for further instructions. Cortney Ward RN, BSN, PHN ST OFFICER documented in this encounter Plan of Treatment Not on filedocumented as of this encounter Visit Diagnoses Not on filedocumented in this encounter Additional Health Concerns Assessment Noted Time PHQ-9 Depression Total Score: 5 03/20/2016 7:18 AM CDT documented as of this encounter Care Teams Regional Director Relationship Specialty Start Date End Date Carlos Chapman PCP - General Family Practice 02/06/14 04/29/19 MD Saw Aida Hdz, Clinic Flow Nurse Seed Corn Production Manager - 12/12/15 01/21/17 [facility] Clinical documented as of this encounter
--- OUTSIDE RECORDS SUMMARY | 2022-03-31 16:55 | XMS_ITS | Encounter Summary ---
:1985 Author Organization [place] Address [address] [place] [address] Care Team Providers Name Role Phone Carlos Chapman MD Primary Care Provider [phone] Aida Hdz [facility] Unavailable Reason for Visit Reason Comments Ear Problem left Encounter Details Date Type Department Care Team Description 03/19/2016 Office Visit [facility] Jayne Thorne MD Acute otitis externa of left ear, unspec ified type (Primary Dx); Clinic [place] [address] Sinus congestion [address] [place] [address] [place], [place] [phone] (Wo rk) [phone] Social History Tobacco Use Types Packs/Day Years Used Date Smoking Tobacco: Never Smokeless Tobacco: Never Alcohol Use Standard Drinks/Week Comments Yes 0 (1 standard drink = 0.6 oz pure alcoho l) couple drinks per month Sex Assigned at Date Recorded Not on file documented as of this encounter Last Filed Vital Signs Vital Sign Reading Time Taken Comments Blood Pressure 124/82 03/19/2016 8:28 AM CDT Pulse 92 03/19/2016 8:28 AM CDT Temperature 37 ??C (98.6 ??F) 03/19/2016 8:28 AM CDT Respiratory Rate 16 03/19/2016 8:28 AM CDT Oxygen Saturation 96% 03/19/2016 8:28 AM CDT Inhaled Oxygen Concentration - - Weight 92.3 kg (203 lb 6.4 oz) 03/19/2016 8:28 AM CDT Height 170.2 cm (5' 7) 03/19/2016 8:28 AM CDT Body Mass Index 31.86 03/19/2016 8:28 AM CDT documented in this encounter Patient Instructions Patient InstructionsJayne Thorne MD - 03/19/2016 9:09 AM CDT Images from the original note were not included. External Ear Infection (Adult) External otitis (also called ???swimmer???s ear?? )??is an infection in the ear canal. It is often caused by bacteria or fungus. It can occur a few days after water gets trapped in the ear canal (from??swimming or bathing). It can also occur after cleaning too deeply in the ear canal with a cotton swab or other object. Sometimes, hair care products get into the ear canal and cause this problem. Symptoms can include pain,??fever,??itching, redness, drainage, or swelling of the ear canal. Temporary hearing loss may also occur. Home care ?? Do not try to clean the ear canal. This can push pus and bacteria deeper into the canal. ?? Use prescribed ear drops as directed. These help reduce swelling and fight the infection. If an ear wick was placed in the ear canal, apply drops right onto the end of the wick. The wick will draw the medication into the ear canal even if it is swollen closed. ?? A cotton ball may be loosely placed in the outer ear to absorb any drainage. ?? You may use acetaminophen or ibuprofen to control pain, unless another medication was prescribed.Note: If you have chronic liver or kidney disease or ever had a stomach ulcer or GI bleeding, talk to your health care provider before taking any of these medications. ?? Do not allow water to get into your ear when bathing. Also, avoid swimming until the infection has cleared. Prevention ?? Keep your ears dry. This helps lower the risk of infection. Dry your ears with a towel or hair boiler after getting wet. Also, use ear plugs when swimming. ?? Do not stick any objects in the ear to remove wax. ?? If you feel water trapped in your ear, use ear drops right away. You can get these drops over thecounter at most [facility].?? They work by removing water from the ear canal. Follow-up care Follow up with your health care provider in one week, or as advised.?? When to seek medical advice Call your health care provider right away if any of these occur: ?? Ear pain becomes worse or doesn???t improve after 3 days of treatment ?? Redness or swelling of the outer ear occurs or gets worse ?? Headache ?? Painful or stiff neck ?? Drowsiness or confusion ?? Fever of 100.4??F (38??C) or higher, or as directed by your health care provider ?? Seizure ?? [id number] [employer]. [address] [place] [address]. All rights reserved. This information is not intended as a substitute for professional medical care. Always follow your healthcare professional's instructions. documented in this encounter Progress Notes Jayne Thorne MD - 03/19/2016 8:25 AM CDT SUBJECTIVE: Ronn Hinkle is a 30 year old male who presents to clinic today for the following health issues: Ear ?? Duration: last night ?? Description (location/character/radiation): left ear- stabbing, pressure in the jaw ?? Intensity: 10/10 ?? Accompanying signs and symptoms: ear drainage, congestion ?? History (similar episodes/previous evaluation): right ear pain ?? Precipitating or alleviating factors: None ?? Therapies tried and outcome: ear drops - not effective Patient Active Problem List Diagnosis ??? CARDIOVASCULAR SCREENING; LDL GOAL LESS THAN 160 ??? H/O testicular cancer ??? Muscle stiffness ??? Health Fdc ??? Polymyalgia (H) ??? Dizziness ??? Cisplatin induced neuropathy (H) ??? Chronic pain syndrome ??? Benign essential hypertension ??? Advance Care Planning ??? Vitamin D deficiency Current Outpatient Prescriptions Medication Sig Dispense Refill ??? cholecalciferol (VITAMIN D3) 23625 UNITS capsule Take 1 capsule (50,000 Units) by mouth twice a week 24 capsule 1 ??? medical cannabis oral liquid (Patient's own supply. Not a prescription) 0 Information only 0 ??? lisinopril (PRINIVIL,ZESTRIL) 20 MG tablet Take 1 tablet (20 mg) by mouth daily 90 tablet 1 ??? ibuprofen (ADVIL,MOTRIN) 200 MG tablet Take 3 tablets (600 mg) by mouth every 6 hours as needed 100 tablet 3 ??? fluticasone (FLONASE) 50 MCG/ACT nasal spray [place] 1-2 sprays into both nostrils daily 1 Bottle 3 ??? acetaminophen (TYLENOL) 325 MG tablet [...] taking medical cannabis.) 0 Information only 0 ROS: CONSTITUTIONAL:NEGATIVE for fever, chills, change in weight ENT/MOUTH: see below RESP:NEGATIVE for significant cough or SOB PSYCHIATRIC: NEGATIVE for changes in mood or affect Started with left ear pain and congestion last night. Recently completed a 10 day course of antibiotics for right ear infection. Runny nose. Mild cough with PND. OBJECTIVE: BP 124/82 mmHg Pulse 92 Temp(Src) 98.6 ??F (37 ??C) (Oral) Resp 16 Ht 5' 7 (1.702 m) Wt 203 lb 6.4 oz (92.262 kg) BMI 31.85 kg/m2 SpO2 96% Body mass index is 31.85 kg/(m^2). General appearance: alert and has no apparent distress. Smiling. Skin color is normal Hydration status appears adequate with normal skin turgor and moist mucous membranes. Left TM is normal: no effusions, no erythema, and normal landmarks. There is pain with movement of the tragus and pinna. The ear canal is slightly swollen. There is some moisture present. Right TM is normal: no effusions, no erythema, and normal landmarks. Nasal mucosa is discharge mucoid. Oropharyngeal exam is normal: no lesions, erythema, adenopathy or exudate. Neck is supple with shotty adenopathy. RESP: Normal - CTA without rales, rhonchi, or wheezing. COR: Regular rate and rhythm. Reviewed last visit note. ASSESSMENT/PLAN: Acute otitis externa of left ear, unspecified type He notes this might be from the hot tub. Discussed OE. Follow up prn no improvement. - jzrnhsvl-bgknasaon-cpzcinkhosxaba (CORTISPORIN) [id number] otic suspension; Place 4 drops Into the left ear 4 times daily Sinus congestion Discussed symptomatic treatment. There may be a component of eustacian tube disfunction; no evidence for OM. Also see patient instructions. Follow up if not improving. Jayne Thorne MD, MD [facility] documented in this encounter Nursing Notes Keyanna Godoy CMA - 03/19/2016 8:30 AM CDT Chief Complaint Patient presents with ??? Ear Problem left Initial BP 124/82 mmHg Pulse 92 Temp(Src) 98.6 ??F (37 ??C) (Oral) Resp 16 Ht 5' 7 (1.702 m) Wt 203 lb 6.4 oz (92.262 kg) BMI 31.85 kg/m2 SpO2 96% Estimated body mass index is 31.85 kg/(m^2) as calculated from the following: Height as of this encounter: 5' 7 (1.702 m). Weight as of this encounter: 203 lb 6.4 oz (92.262 kg). BP completed using cuff size: large Keyanna Godoy CMA documented in this encounter Plan of Treatment Not on filedocumented as of this encounter Visit Diagnoses Diagnosis Acute otitis externa of left ear, unspec ified type - Primary Sinus congestion Other diseases of nasal cavity and sinus es documented in this encounter Additional Health Concerns Assessment Noted Time PHQ-9 Depression Total Score: 5 03/20/2016 7:18 AM CDT documented as of this encounter Care Teams Wrecking Supervisor Relationship Specialty Start Date End Date Carlos Chapman PCP - General Family Practice 02/06/14 04/29/19 MD Saw Aida Hdz, Clinic Milk Condenser Emergency Man - 12/12/15 01/21/17 [facility] Clinical documented as of this encounter
--- OUTSIDE RECORDS SUMMARY | 2022-03-31 16:55 | XMS_ITS | Encounter Summary ---
:1985 Author Organization [place] Address [address] [place] [address] Care Team Providers Name Role Phone Carlos Chapman MD Primary Care Provider [phone] Aida Hdz LGSW Unavailable Carlos Chapman MD Unavailable Carlos Chapman MD Unavailable Reason for Visit Reason Comments Consult Encounter Details Date Type Department Care Team Description 08/04/2016 Office Visit [facility] Carlos Cahpman ons (Primary Dx); Clinic Anjel Spring MD Vitamin D deficiency; [place] [id number] [facility] CARDIOVASCULAR SCREENING; LDL GOAL LESS THAN 160[address], [address] [place], [place] [phone] Social History Tobacco Use Types Packs/Day Years Used Date Smoking Tobacco: Never Smokeless Tobacco: Never Alcohol Use Standard Drinks/Week Comments Yes 0 (1 standard drink = 0.6 oz pure alcoho l) couple drinks per month Sex Assigned at Date Recorded Not on file documented as of this encounter Last Filed Vital Signs Vital Sign Reading Time Taken Comments Blood Pressure 136/98 08/04/2016 7:24 AM [facility] Pulse 88 08/04/2016 7:24 AM [facility] Temperature 36.9 ??C (98.4 ??F) 08/04/2016 7:24 AM [facility] Respiratory Rate - - Oxygen Saturation 98% 08/04/2016 7:24 AM [facility] Inhaled Oxygen Concentration - - Weight 93 kg (205 lb 1.6 oz) 08/04/2016 7:24 AM [facility] Height - - Body Mass Index 32.12 06/03/2016 10:55 AM [facility] documented in this encounter Progress Notes Carlos Chapmna MD - 08/04/2016 7:20 AM CST HPI SUBJECTIVE: Ronn Hinkle is a 30 year old male who presents to clinic today for the following health issues: Pt is here for concern for elevated heart rate - going on for a couple weeks - HR gets so high that he gets blurred vision, dizziness, headache - doing his yoga therapy a little harder than usual, could be the reasoning - noticed some palpitations - SOB, winded, gaspy - the other day he walked up a flight of stairs at the gym and he though he was goiong , checked his pulse and it was 130 - he can usually bring it down when he just takes it slow - feels HR high now just sitting here - would like to be checked for arsinic - check his vitamin D - check LDL Is always triggered with activity. In the past has been able to control it with breathing and relaxing, but isn't working so well any more. Feels he's doing more activity, more yoga. Feels that episodes are both happening more often and are more severe. Trying to do more yoga is the only real differnce in his daily activity that he can recall. Does remark that he can easily over do this. No specific concerns about mood. Marijuana vaporizer for pain, notes this doesn't happen when using. Has been using for over one year. Will use in the afternoon or evening, feels he uses a smallish dose. Is looking at buying a farm, but learned that there's arsenic in the well water there. He notes thatit is near to his place and he has well water, and has never been tested. Did not take BP meds this am. Review of Systems Constitutional: Negative. Respiratory: Positive for shortness of breath. Cardiovascular: Positive for palpitations. Gastrointestinal: Negative. Musculoskeletal: Positive for back pain, joint pain and myalgias. Neurological: Positive for dizziness. Negative for seizures, loss of consciousness and headaches. Physical Exam Constitutional: He is oriented to person, place, and time and well-developed, well-nourished, and inno distress. Eyes: Conjunctivae and EOM are normal. Cardiovascular: Normal rate, regular rhythm and normal heart sounds. Pulmonary/Chest: Effort normal and breath sounds normal. Musculoskeletal: He exhibits no edema. Neurological: He is alert and oriented to person, place, and time. Skin: Skin is warm and dry. Vitals reviewed. (R00.2) Palpitations (primary encounter diagnosis) Comment: nl EKG, low risk for cardiac events, previous Holter (02/12) was normal. Plan: EKG 12-lead complete w/read - Clinics, Comprehensive metabolic panel, CBC with platelets and differential (E55.9) Vitamin D deficiency Comment: recehcking Plan: Vitamin D Deficiency (Z13.6) CARDIOVASCULAR SCREENING; LDL GOAL LESS THAN 160 Comment: is fasting Plan: Lipid panel reflex to direct LDL (Z77.010) Arsenic suspected exposure Comment: per request Plan: Arsenic level RTC in Carlos Chapman MD documented in this encounter Nursing Notes Geena Goetz - 08/04/2016 7:20 AM CST Chief Complaint Patient presents with ??? Consult Initial BP (!) 136/98 (BP Location: Right arm, Patient Position: Chair, Cuff Size: Adult Large) Pulse 88 Temp 98.4 ??F (36.9 ??C) (Oral) Wt 205 lb 1.6 oz (93 kg) SpO2 98% BMI 32.12 kg/m2 Estimated bodymass index is 32.12 kg/(m^2) as calculated from the following: Height as of 17: 5' 7 (1.702 m). Weight as of this encounter: 205 lb 1.6 oz (93 kg). BP completed using cuff size: large Geena Goetz MA IN [facility] documented in this encounter Miscellaneous Notes Addendum Note - Franny Bourgeois - 08/04/2016 1:12 PM [facility] Addended by: FRANNY BOURGEOIS on: 08/04/2016 01:12 PM Modules accepted: Orders IN WINDER documented in this encounter Plan of Treatment Not on filedocumented as of this encounter Procedures Procedure Name Priority Date/Time Associated Diagnosis Comme nts EKG 12-LEAD Routine 08/04/2016 7:57 AM Palpitations Results f or this COMPLETE W/READ - [facility] procedure are in CLINICS the results section. documented in this encounter Results Arsenic level (08/18/2016 7:51 AM CDT) athologist Signature Arsenic 11.3 ug/L [facility] Comment: Reference range: 0.0 to 13.0 (Note) INTERPRETIVE INFORMATION: Arsenic, Blood Potentially toxic ranges for blood jameel ic: ??Greater than or equal to 600 ug/L. Blood arsenic is for the detection of re cent exposure only. Blood arsenic levels in healthy subjects vary considerably with exposure to arsenic in the diet and the environment. A 24-hour urine arsenic is useful for th e detection of chronic exposure. Test developed and characteristics deter mined by [facility]. See Compliance Statement B : [employer] Performed by [facility], [address] [place] [id number] [email or web address], Yayo Alcantara MD, Lab. Director Specimen Anatomical Collection Method Collection Time Receive d Time (Source) Location / / Volume Laterality Blood specimen 08/18/2016 7:51 AM 017 7:52 (specimen) CDT AM CDT Carlos Chapman MD LAB - BLOOD ORDERABLES Performing Organization Address City/State/ZIP Code Phon e Number [facility] [address] [place] [address] Vitamin D Deficiency (08/18/2016 7:51 AM CDT) athologist Signature Vitamin D 48 20 - 75 [facility] Deficiency ug/L [facility] Comment: Season, race, dietary intake, and treatm ent affect the concentration of 45-zcnnbln-Cfkpktx D. Values may decrea se during winter months and increase during summer months. Values 20-29 ug/L may indicate Vitamin D insufficiency and values <20 ug/L may indicate Vitami n D deficiency. Vitamin D determination is routinely pe rformed by an immunoassay specific for 25 hydroxyvitamin D3. ??If an individua l is on vitamin D2 (ergocalciferol) supplementation, please specify 25 [place] v itamin D2 and D3 level determination by LCMSMS test VITD23. Specimen Anatomical Collection Method Collection Time Receive d Time (Source) Location / / Volume Laterality Blood specimen 08/18/2016 7:51 AM 017 7:52 (specimen) CDT AM CDT Carlos Chapman MD LAB - BLOOD ORDERABLES Performing Organization Address City/State/ZIP Code Phon e Number [facility] [address] CBC with platelets and differential (08/18/2016 7:51 AM CDT) [facility] Method Time Signature WBC 8.7 4.0 - [facility] 11.0 CLINICS 10e9/L [place] RBC Count 4.84 4.4 - 5.9 [place] 10e12/L [facility] Hemoglobin 15.0 13.3 - [facility] 17.7 g/dL [facility] Hematocrit 43.7 40.0 - [facility] 53.0 % [facility] MCV 90 78 - 100 [facility] MCH 31.0 26.5 - [facility] 33.0 pg [facility] MCHC 34.3 31.5 - [facility] 36.5 g/dL [facility] RDW 12.9 10.0 - [facility] 15.0 % [facility] Platelet Count 183 150 - 450 [place] 10e9/L [facility] Diff Method Automated [place] Method [facility] % Neutrophils 57.0 % [facility] % Lymphocytes 25.0 % [facility] % Monocytes 12.0 % [facility] % Eosinophils 5.5 % [facility] % Basophils 0.5 % [facility] Absolute 4.9 1.6 - 8.3 [place] Neutrophil 10e9/L [facility] Absolute 2.2 0.8 - 5.3 [place] Lymphocytes 10e9/L [facility] Absolute 1.0 0.0 - 1.3 [place] Monocytes 10e9/L [facility] Absolute 0.5 0.0 - 0.7 [place] Eosinophils 10e9/L [facility] Absolute 0.0 0.0 - 0.2 [facility] Basophils 10e9/L [facility] Specimen Anatomical Collection Method Collection Time Receive d Time (Source) Location / / Volume Laterality Blood specimen 08/18/2016 7:51 AM 017 7:52 (specimen) CDT AM CDT Carlos Chapman MD LAB - BLOOD ORDERABLES Performing Organization Address City/[facility]/ZIP Code Phon e Number [facility] [place] [address] (ABNORMAL) Lipid panel reflex to direct LDL (08/18/2016 7:51 AM CDT) [facility] Method Time Signature Cholesterol 198 <200 [place] mg/dL [facility] Triglycerides 139 <150 [place] mg/dL [facility] HDL Cholesterol 34 (L) >39 mg/dL [facility] LDL Cholesterol 136 (H) <100 [place] Calculated mg/dL [facility] Comment: Above desirable: ??100-129 mg/dl Borderline High: ??130-159 mg/dL High: ? 160-189 mg/dL Very high: ? >189 mg/dl Non HDL Cholesterol 164 (H) <130 mg/dL [facility] Comment: Above Desirable: ??130-159 mg/dl Borderline high: ??160-189 mg/dl High: ? 190-219 mg/dl Very high: ? >219 mg/dl Specimen Anatomical Collection Method Collection Time Receive d Time (Source) Location / / Volume Laterality Blood specimen 08/18/2016 7:51 AM 017 7:52 (specimen) CDT AM CDT Carlos Chapman MD LAB - BLOOD ORDERABLES Performing Organization Address City/State/ZIP Code Phon e Number [facility] [address] [place] [address] (ABNORMAL) Comprehensive metabolic panel (08/18/2016 7:51 AM CDT) [facility] Method Time Signature Sodium 143 133 - 144 [place] mmol/L [facility] Potassium 4.2 3.4 - 5.3 [place] mmol/L [facility] Chloride 110 (H) 94 - 109 [place] mmol/L [facility] Carbon Dioxide 24 20 - 32 [place] mmol/L [facility] Anion Gap 9 3 - 14 [place] mmol/L [facility] Glucose 96 70 - 99 [place] mg/dL [facility] Urea Nitrogen 12 7 - 30 [place] mg/dL [facility] Creatinine 0.96 0.66 - [place] 1.25 [facility] mg/dL [facility] GFR Estimate >90 >60 [place] Non GFR Calc mL/min/1. CLINICS 7m2 [facility] GFR Estimate If >90 >60 [place] Black GFR Calc mL/min/1. CLIN ICS 7m2 [facility] Calcium 8.8 8.5 - [place] 10.1 [facility] mg/dL [facility] Bilirubin Total 0.3 0.2 - 1.3 [place] mg/dL [facility] Albumin 3.9 3.4 - 5.0 [place] g/dL [facility] Protein Total 7.3 6.8 - 8.8 [place] g/dL [facility] Alkaline 95 40 - 150 [place] Phosphatase U/L [facility] ALT 63 0 - 70 [place] U/L [facility] AST 32 0 - 45 [place] U/L [facility] Specimen Anatomical Collection Method Collection Time Receive d Time (Source) Location / / Volume Laterality Blood specimen 08/18/2016 7:51 AM 017 7:52 (specimen) CDT AM CDT Carlos Chapman MD LAB - BLOOD ORDERABLES Performing Organization Address City/State/ZIP Code Phon e Number [facility] [address] [place] [address] EKG 12-lead complete w/read - Clinics (08/04/2016 7:57 AM [facility]) Narrative This result has an attachment that is no t available. Carlos Chapman MD ECG ORDERABLES documented in this encounter Visit Diagnoses Diagnosis Palpitations - Primary Vitamin D deficiency Unspecified vitamin D deficiency CARDIOVASCULAR SCREENING; LDL GOAL LESS THAN 160 Arsenic suspected exposure Contact with and (suspected) exposure to arsenic documented in this encounter Additional Health Concerns Assessment Noted Time PHQ-9 Depression Total Score: 5 03/20/2016 7:18 AM CDT documented as of this encounter Care Teams Mirror Department Supervisor Relationship Specialty Start Date End Date Carlos Chapman PCP - General Family Practice 02/06/14 04/29/19 MD Saw Carlos Chapman PCP - Assigned PCP 06/28/16 08/02/[place] [id number] [address]U[place] [id number] Aida Hdz, Clinic Wheel [employer] Performance Professor - 12/12/15 01/21/17 [facility] Clinical Carlos Chapman Assigned PCP 06/28/16 02/24/20 [place] [id number] [address] [id number] documented as of this encounter
--- OUTSIDE RECORDS SUMMARY | 2022-03-31 16:55 | XMS_ITS | Encounter Summary ---
:1985 Author Organization [place] Address [address] [place] [address]. [place] [address] Care Team Providers Name Role Phone Carlos Chapman MD Primary Care Provider [phone] Aida Hdz LGSW Unavailable Carlos Chapman MD Unavailable Carlos Chapman MD Unavailable Encounter Details Date Type Department Care Team Description 08/25/2016 Office Visit [facility] [place], Sensorineural hearing [address] [facility] Arlene, Bora loss, bilateral [address] [facility] (Primary Dx) [place] [address] [phone] Social History Tobacco Use Types Packs/Day Years Used Date Smoking Tobacco: Never Smokeless Tobacco: Never Alcohol Use Standard Drinks/Week Comments Yes 0 (1 standard drink = 0.6 oz pure alcoho l) couple drinks per month Sex Assigned at Date Recorded Not on file documented as of this encounter Progress Notes Arlene Araiza AuD - 08/25/2016 2:00 PM CDT AUDIOLOGY REPORT SUBJECTIVE: Ronn Hinkle is a 30 year old male who was seen in the Audiology Clinic at the [facility], [facility] [place] for a fitting of binaural ReSound Linx2 7 RITE hearing aids. Previous results have revealed bilateral normal hearing sloping to a profound essentiallysensorineural hearing loss bilaterally (some air-bone gaps noted in the left ear), [facility] Dr. [facility]. The patient was given medical clearance to pursue amplification by Farhat Spears MD. He was accompanied to today's appointment by his two young sons. He reported recent drainage in the left ear with slightly muffled hearing which only began this morning. OBJECTIVE: Otoscopy revealed clear ear canals bilaterally, no drainage was noted in the left ear canal. A listening check revealed the hearing aids were sounding crisp and clear with no distortion of weakness noted. The hearing aid conformity evaluation was completed.The hearing aids were placed and they provided a good fit. Sosx-ool-jbcgh-microphone measurements were completed on the [employer] system and were a good match to NAL-NL1 target with soft sounds audible, moderate sounds comfortable, and loud sounds below discomfort. UCLs are verified through maximum power output measures and demonstrate appropriate limiting of loud inputs. Ronn was oriented to proper hearing aid use, care, cleaning (nowater, dry brush), batteries (size 13, insertion/removal, toxicity, low-battery signal), aid insertion/removal, user booklet, warranty information, storage cases, and other hearing aid details. The patient confirmed understanding of hearing aid use and care, and showed proper insertion of hearing aid and batteries while in the office today. Ronn reported good volume and sound quality today, he made multiple comments regarding sounds thathe could now hear with the hearing aids (chair noises, keyboard strokes, etc...). He did report thatsounds were initially too loud, so the hearing aid gain was reduced to 80% with auto-acclimatizationset to gradually increase the gain of the span of 2 months. Hearing aids were programmed as follows: Program 1:Everyday The volume control was enabled as he has multiple situations where a mute button would be beneficial. He was counseled on not turning the volume of the hearing aids down. EARS FIT: Binaural [place] HEARING AID MODEL NAME: ReSound Linx2 7 HEARING AID STYLE: Surg Tech in the Ear EARMOLDS/TIP/STAMP CLERK LINK: Custom earmolds The hearing aids were also paired to his iPhone in the clinic today. A brief tutorial of the phone jarrod was given but he was encouraged to read through the instruction manual for all information regarding the direct to iPhone capabilities. ASSESSMENT: Binaural ReSound Linx2 7 hearing aids were fit today. Verification measures were performed. Ronn signed the Hearing Aid Purchase Agreement and was given a copy, as well as details on his hearing aids. PLAN: It was recommended that Ronn contact his ENT regarding the muffled hearing and drainage concerns. Ronn will return for follow-up in 2-3 weeks for a hearing aid review appointment. Hearing aids billed according to [facility] guidelines. Please call this clinic with questions regarding today???s ap pointment. Bora Gonzalez Ostomy Nurse [place] License #[id number] documented in this encounter Plan of Treatment Not on filedocumented as of this encounter Procedures Procedure Name Priority Date/Time Associated Diagnosis Comme [facility] HEARING AID Routine 08/25/2016 5:44 PM Sensorineural hearin g FIT/ORIENTATION/CHECK CDT loss, bilateral documented in this encounter Visit Diagnoses Diagnosis Sensorineural hearing loss, bilateral - Primary documented in this encounter Additional Health Concerns Assessment Noted Time PHQ-9 Depression Total Score: 5 03/20/2016 7:18 AM CDT documented as of this encounter Care Teams Glaze Handler Relationship Specialty Start Date End Date Carlos Chapman PCP - General Family Practice 02/06/14 04/29/19 MD Saw Carlos Chapman PCP - Assigned PCP 06/28/16 08/02/18 [place] [id number] [address] [id number] Aida Hdz, Clinic Mechanical Shop Laborer Glass Designer - 12/12/15 01/21/17 [facility] Clinical Carlos Chapman Assigned PCP 06/28/16 02/24/[place] [id number] BRUCE DELUCA [id number] documented as of this encounter
--- OUTSIDE RECORDS SUMMARY | 2022-03-31 16:55 | XMS_ITS | Encounter Summary ---
:1985 Author Organization [place] Address [address] [facility] [place] [address] Care Team Providers Name Role Phone Carlos Chapman MD Primary Care Provider [phone] Aida Hdz LGSW Unavailable Reason for Visit Reason Comments New Patient Patient referred by SALVATORE herman like to get hormones checked today Encounter Details Date Type Department Care Team Description [facility] ([facility] Dx[facility] [place] CORRECTIONAL OFFICER Polymyalgia (H); [address] [facility] [id number] [place] [address] Muscle stiffness; [place], [place] H/O ever ticular cancer; [id number] Elevated glucose; [phone] Family history of diabetes mellitus (Work) Social History Tobacco Use Types Packs/Day Years Used Date Smoking Tobacco: Never Smokeless Tobacco: Never Alcohol Use Standard Drinks/Week Comments Yes 0 (1 standard drink = 0.6 oz pure alcoho l) couple drinks per month Sex Assigned at Date Recorded Not on file documented as of this encounter Last Filed Vital Signs Vital Sign Reading Time Taken Comments Blood Pressure 131/89 03/18/2016 2:05 PM CDT Pulse 80 03/18/2016 2:05 PM CDT Temperature - - Respiratory Rate - - Oxygen Saturation - - Inhaled Oxygen Concentration - - Weight 92.5 kg (204 lb) 03/18/2016 2:05 PM CDT Height - - Body Mass Index 31.95 03/03/2016 9:49 AM CDT documented in this encounter Progress Notes Marquise Gerironaldo Marley, BANDER AND CELLOPHANER MACHINE CORRECTIONAL OFFICER - 03/18/2016 3:07 PM CDT Name: Ronn Hinkle Seen at the request of No ref. provider found For Chief Complaint Patient presents with ??? New Patient Patient referred by PT - would like to get hormones checked today HPI: Ronn Hinkle is a 30 year old male who presents for the evaluation of possible hormone deficiencies. 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 He currently c/o generalized muscle pain. The pain is specific to and triggered by minimal use of the muscle or muscles. He also notes swelling along with pain. The pain and swelling lasts varying amounts of time. Energy is poor in general. He was previously noted to have a low vitamin D, he reports this has been treated with 50,000 IU weekly with persistently low D level. PMH/PSH: Past Medical History Diagnosis Date ??? Testicular cancer (H) 1998 ??? Palpitations ??? Hypertension ??? Neuromuscular disorder (H) Past Surgical History Procedure Laterality Date ??? Orchiectomy inguinal 1998 L testicular ca, with spinal met Family Hx: Family History Problem Relation Age of Onset ??? Obesity Mother ??? Obesity Father ??? Neurologic Disorder Maternal Uncle Multiple Sclerosis and brain aneurysm ??? CANCER Maternal Uncle lymphoma ??? C.A.D. Maternal Uncle several with heart disease ??? C.A.D. Maternal Grandfather [place] ??? Myocardial Infarction Maternal Grandfather ??? CANCER Paternal Grandfather stomach cancer Thyroid disease: DM2: Autoimmune: DM1, SLE, RA, Vitiligo Social Hx: Social History Social History ??? Marital Status: Single Spouse Name: N/A ??? Number of Children: N/A ??? Years of Education: N/A Occupational History ??? Not on file. Social History Main Topics ??? Smoking status: Never Smoker ??? Smokeless tobacco: Never Used ??? Alcohol Use: 0.0 oz/week 0 Standard drinks or equivalent per week Comment: couple drinks per month ??? Drug Use: Yes Special: Marijuana ??? Sexual Activity: Partners: Female Control/ Protection: Condom Other Topics Concern ??? Parent/Sibling W/ Cabg, Mi Or Angioplasty Before 65f 55m? No ??? Caffeine Concern Yes 1 cup coffee per day ??? Sleep Concern Yes SOB during the night ??? Weight Concern Yes weight gain 25# ??? Special Diet No ??? Exercise Yes walking Social History Narrative MEDICATIONS: has a current medication list which includes the following prescription(s): cholecalciferol, medicalcannabis, lisinopril, ibuprofen, fluticasone, acetaminophen, alum & mag hydroxide-simethicone, and medical cannabis. ROS ROS: 10 point ROS neg other than the symptoms noted above in the HPI. GENERAL: no weight loss, weight gain, fevers, chills, or night sweats. HEENT: no dysphagia, diplopia, neck pain or tenderness CV: no chest pain, pressure, palpitations, skipped beats, LOC LUNGS: no SOB, CAMPBELL ABDOMEN: no diarrhea, constipation, abdominal pain EXTREMITIES: no rashes, ulcers, edema NEUROLOGY: no changes in vision, tingling or numbness in hands or feet. MSK: ++ muscle aches or pains, weakness SKIN: no rashes or lesions ENDOCRINE: no heat or cold intolerance Physical Exam VS: BP 131/89 mmHg Pulse 80 Wt 92.534 kg (204 lb) GENERAL: AXOX3, NAD, well dressed, answering questions appropriately, appears stated age. HEENT: no exopthalmous, no proptosis, EOMI, no lig lag, no retraction NECK: Supple, no thyromegaly or adenopathy. CV: RRR, no rubs, gallops, no murmurs LUNGS: CTAB ABDOMEN: nondistended EXTREMITIES: no edema, +pulses, no rashes, no lesions NEUROLOGY: CN grossly intact, no tremors MSK: grossly intact SKIN: no rashes, no lesions LABS: !COMPREHENSIVE Latest Ref Rng 08/07/2015 10/23/2015 SODIUM 133 - 144 mmol/L 139 139 POTASSIUM 3.4 - 5.3 mmol/L 3.7 3.4 CHLORIDE 94 - 109 mmol/L 107 108 BUN 7 - 30 mg/dL 11 13 Creatinine 0.66 - 1.25 mg/dL 0.99 0.98 Glucose 70 - 99 mg/dL 93 103 (H) ANION GAP 3 - 14 mmol/L 6 8 CALCIUM 8.5 - 10.1 mg/dL 8.8 8.9 ALBUMIN 3.4 - 5.0 g/dL 4.3 4.2 Component Latest Ref Rng 10/26/2012 02/14/2014 01/01/2015 11/04/2015 Vitamin D Deficiency screening 20 - 75 ug/L 18 (L) 23 (L) 25 (L) 24 All pertinent notes, labs, and images personally reviewed by me. A/P Mr.Daniel Raul Hinkle is a 30 year old here for the evaluation of: 1. Vitamin D deficiency 2. Polymyalgia (H) 3. Muscle stiffness 4. H/O testicular cancer 5. Elevated glucose 6. Family history of diabetes mellitus Labs ordered today: Orders Placed This Encounter Procedures ??? TSH ??? T4 FREE ??? Testosterone Free and Total ??? Erythrocyte sedimentation rate auto ??? Vitamin D Deficiency ??? Hemoglobin A1c ??? Comprehensive metabolic panel ??? Cortisol ??? CBC with platelets ??? Ferritin ??? Parathyroid Hormone Intact ??? C-peptide ??? CK total Radiology/Consults ordered today: None More than 50% of the time spent with Mr. Hinkle on counseling / coordinating his care. Total face to face time was greater than or equal to 30 minutes. Follow-up: To be determined based on lab results. Geri Camarillo NP Endocrinology [facility] CC: Geri Camarillo APRN CNP - 03/18/2016 2:25 PM CDT Duplicate note documented in this encounter Miscellaneous Notes Addendum Note - Geri Camarillo APRN CNP - 03/30/2016 1:58 PM CDT Addended by: GERI CAMARILLO on: 03/30/2016 01:58 PM Modules accepted: Orders documented in this encounter Plan of Treatment Not on filedocumented as of this encounter Results CK total (03/19/2016 8:12 AM CDT) athologist Signature CK Total 82 30 - 300 [facility] U/L [facility] Specimen Anatomical Collection Method Collection Time Receive d Time (Source) Location / / Volume Laterality Blood specimen 03/19/2016 8:12 AM 016 8:13 (specimen) CDT AM CDT Geri Camarillo APRN CORRECTIONAL OFFICER LAB - BLOOD ORDERABLES Performing Organization Address City/State/ZIP Code Phon e Number [facility] [address] [place] [address] C-peptide (03/19/2016 8:12 AM CDT) athologist Signature C Peptide 4.8 0.9 - 6.9 [facility] [place] ng/mL [facility] Specimen Anatomical Collection Method Collection Time Receive d Time (Source) Location / / Volume Laterality Blood specimen 03/19/2016 8:12 AM 016 8:13 (specimen) CDT AM CDT Geri Camarillo APRN CORRECTIONAL OFFICER LAB - BLOOD ORDERABLES Performing Organization Address City/State/ZIP Code Phon e Number [facility] [address] [place] [address] [facility] Parathyroid Hormone Intact (03/19/2016 8:12 AM CDT) athologist Signature Parathyroid 14 12 - 72 [facility] Hormone Intact pg/mL [facility] Specimen Anatomical Collection Method Collection Time Receive d Time (Source) Location / / Volume Laterality Blood specimen 03/19/2016 8:12 AM 016 8:13 (specimen) CDT AM CDT Geri Camarillo APRN CORRECTIONAL OFFICER LAB - BLOOD ORDERABLES Performing Organization Address City/[facility]/ZIP Code Phon e Number [facility] [address] [place] [address] [facility] Ferritin (03/19/2016 8:12 AM CDT) athologist Signature Ferritin 130 26 - 388 [facility] ng/mL [facility] Specimen Anatomical Collection Method Collection Time Receive d Time (Source) Location / / Volume Laterality Blood specimen 03/19/2016 8:12 AM 016 8:13 (specimen) CDT AM CDT Geri Camarillo APRN, CNP LAB - BLOOD ORDERABLES Performing Organization Address City/State/ZIP Code Phon e Number [facility] [address] [place] [address] (ABNORMAL) CBC with platelets (03/19/2016 8:12 AM CDT) Analysis Performed At Patho logist Time Signature WBC 11.4 (H) 4.0 - 11.0 [place] 10e9/L [facility] RBC Count 4.77 4.4 - 5.9 [place] 10e12/L [facility] Hemoglobin 14.8 13.3 - [place] 17.7 g/dL [facility] Hematocrit 42.3 40.0 - [place] 53.0 % [facility] MCV 89 78 - 100 [place] fl [facility] MCH 31.0 26.5 - [place] 33.0 pg [facility] MCHC 35.0 31.5 - [place] 36.5 g/dL [facility] RDW 12.6 10.0 - [place] 15.0 % [facility] Platelet Count 213 150 - 450 [place] 10e9/L [facility] Specimen Anatomical Collection Method Collection Time Receive d Time (Source) Location / / Volume Laterality Blood specimen 03/19/2016 8:12 AM 016 8:13 (specimen) CDT AM CDT Geri Camarillo APRN, CNP LAB - BLOOD ORDERABLES Performing Organization Address City/State/ZIP Code Phon e Number [facility] [address] [place], [place] [address] Cortisol (03/19/2016 8:12 AM CDT) P athologist Signature Cortisol Serum 14.4 4 - 22 [facility] ug/dL [facility] Comment: 8 AM Cortisol Reference Range = 4-22 ug/ dL 4 PM Cortisol Reference Range = 3-17 ug /dL Specimen Anatomical Collection Method Collection Time Receive d Time (Source) Location / / Volume Laterality Blood specimen 03/19/2016 8:12 AM 016 8:13 (specimen) CDT AM CDT Geri Camarillo APRN CORRECTIONAL OFFICER LAB - BLOOD ORDERABLES Performing Organization Address City/State/ZIP Code Phon e Number [facility] [address] [place] [address] [facility] (ABNORMAL) Comprehensive metabolic panel (03/19/2016 8:12 AM CDT) [facility] Method Time Signature Sodium 139 133 - 144 [place] mmol/L [facility] Potassium 3.7 3.4 - 5.3 [facility] mmol/L [facility] Chloride 110 (H) 94 - 109 [facility] mmol/L [facility] Carbon Dioxide 22 20 - 32 [facility] mmol/L [facility] Anion Gap 7 3 - 14 [facility] mmol/L [facility] Glucose 101 (H) 70 - 99 [facility] mg/dL [facility] Urea Nitrogen 14 7 - 30 [place] mg/dL [facility] Creatinine 0.94 0.66 - [facility] 1.25 CLINICS mg/dL [facility] GFR Estimate >90 >60 [place] Non GFR Calc mL/min/1. [facility]INICS 7m2 [place] [facility] GFR Estimate If >90 >60 [place] Black GFR Calc mL/min/1. CLIN ICS 7m2 [facility] Calcium 9.2 8.5 - [facility] 10.1 CLINICS mg/dL [facility] Bilirubin Total 0.5 0.2 - 1.3 [place] mg/dL [facility] Albumin 4.0 3.4 - 5.0 [place] g/dL [facility] Protein Total 7.6 6.8 - 8.8 [place] g/dL [facility] Alkaline 105 40 - 150 [place] Phosphatase U/L [facility] ALT 60 0 - 70 [facility] U/L [facility] AST 27 0 - 45 [facility] U/L [facility] Specimen Anatomical Collection Method Collection Time Receive d Time (Source) Location / / Volume Laterality Blood specimen 03/19/2016 8:12 AM 016 8:13 (specimen) CDT AM CDT Geri Camarillo APRN CORRECTIONAL OFFICER LAB - BLOOD ORDERABLES Performing Organization Address City/State/ZIP Code Phon e Number [facility] [address] [place] [address] Hemoglobin A1c (03/19/2016 8:12 AM CDT) athologist Signature Hemoglobin A1C 5.1 4.3 - 6.0 [facility] Specimen Anatomical Collection Method Collection Time Receive d Time (Source) Location / / Volume Laterality Blood specimen 03/19/2016 8:12 AM 016 8:13 (specimen) CDT AM CDT Geri Camarillo APRN CORRECTIONAL OFFICER LAB - BLOOD ORDERABLES Performing Organization Address City/State/ZIP Code Phon e Number [facility] [address] [place] [address] Vitamin D Deficiency (03/19/2016 8:12 AM CDT) athologist Signature Vitamin D 48 20 - 75 [facility] Deficiency ug/L [facility] Comment: Season, race, dietary intake, and treatm ent affect the concentration of 76-mxuynhr-Yrkyurb D. Values may decrea se during winter [...] / / Volume Laterality Blood specimen 03/19/2016 8:12 AM 016 8:13 (specimen) CDT AM CDT Geri Camarillo APRN, CNP LAB - BLOOD ORDERABLES Performing Organization Address City/State/ZIP Code Phon e Number [facility] [address] [place] [address] [facility] Erythrocyte sedimentation rate auto (03/19/2016 8:12 AM CDT) athologist Signature Sed Rate 5 0 - 15 mm/h [facility] Specimen Anatomical Collection Method Collection Time Receive d Time (Source) Location / / Volume Laterality Blood specimen 03/19/2016 8:12 AM 016 8:13 (specimen) CDT AM CDT Geri Camarillo APRN CORRECTIONAL OFFICER LAB - BLOOD ORDERABLES Performing Organization Address City/State/ZIP Code Phon e Number [facility] [address] [place], [place] [address] Testosterone Free and Total (03/19/2016 8:12 AM CDT) Analysis Performed At Patho logist Time Signature Testosterone 317 240 - 950 [facility] ng/dL [facility] Comment: This test was developed and its performa nce characteristics determined by the [facility], ??Special Chemistry Laboratory. It has not been cleared or approved by the FDA . The laboratory is regulated under CLIA as qualified to perform high-complexity testing. This test is used for clinical purposes. It should not be regarded as investigational or for research. Sex Hormone Binding Globulin 13 11 - 80 nmol/L [facility] Free Testosterone Calculated 9.54 4.7 - 24.4 ng/dL [facility] Specimen Anatomical Collection Method Collection Time Receive d Time (Source) Location / / Volume Laterality Blood specimen 03/19/2016 8:12 AM 016 8:13 (specimen) CDT AM CDT Geri Camarillo APRN, CNP LAB - BLOOD ORDERABLES Performing Organization Address City/[facility]/ZIP Code Phon e Number [facility] [address] [place] [address] [facility] T4 FREE (03/19/2016 8:12 AM CDT) P athologist Signature T4 Free 1.00 0.76 - 1.46 [facility] ng/dL [facility] Specimen Anatomical Collection Method Collection Time Receive d Time (Source) Location / / Volume Laterality Blood specimen 03/19/2016 8:12 AM 016 8:13 (specimen) CDT AM CDT Geri Camarillo APRN, CNP LAB - BLOOD ORDERABLES Performing Organization Address City/[facility]/ZIP Code Phon e Number [facility] [address] [place] [address] TSH (03/19/2016 8:12 AM CDT) P athologist Signature TSH 1.88 0.40 - 4.00 [facility] mU/L [place] [facility] Specimen Anatomical Collection Method Collection Time Receive d Time (Source) Location / / Volume Laterality Blood specimen 03/19/2016 8:12 AM 016 8:13 (specimen) CDT AM CDT Geri Makenny Camarillo BANDER AND CELLOPHANER MACHINE CORRECTIONAL OFFICER LAB - BLOOD ORDERABLES Performing Organization Address City/State/ZIP Code Phon e Number [facility] [address] [place] [address] documented in this encounter Visit Diagnoses Diagnosis Vitamin D deficiency - Primary Unspecified vitamin D deficiency Polymyalgia (H) Polymyalgia rheumatica Muscle stiffness Unspecified disorder of muscle, ligament , and fascia H/O testicular cancer Personal history of malignant neoplasm o f testis Elevated glucose Other abnormal glucose Family history of diabetes mellitus documented in this encounter Care Teams Bingo Clerk Relationship Specialty Start Date End Date Carlos Chapman PCP - General Family Practice 02/06/14 04/29/19 MD Saw Aida Hdz, Clinic Reinsurance Analyst Thread Twister - 12/12/15 01/21/17 [facility] Clinical documented as of this encounter
--- OUTSIDE RECORDS SUMMARY | 2022-03-31 16:55 | XMS_ITS | Encounter Summary ---
:1985 Author Organization [facility] Address [address] [place] [address] Care Team Providers Name Role Phone Carlos Chapman MD Primary Care Provider [phone] Aida Hdz [facility] Unavailable Reason for Visit Reason Comments Pre-Op Exam Encounter Details Date Type Department Care Team Description 06/03/2016 Office Visit [facility] Carlos Chapman Preop gen eral physical exam (Primary Dx); Clinic Anjel Spring MD Perforated tympanic membrane, left; [place] [address] [facility] Vitamin D deficiency; [address], [address] [place], [place] Acute suppurative otitis med ia of left ear with spontaneous rupture of tympanic membrane, recurrence not specified; [place] [address] Benign essential hypertension; [id number] CARDIOVASCULAR SCREENING; LD L GOAL LESS THAN 130 Social History Tobacco Use Types Packs/Day Years Used Date Smoking Tobacco: Never Smokeless Tobacco: Never Alcohol Use Standard Drinks/Week Comments Yes 0 (1 standard drink = 0.6 oz pure alcoho l) couple drinks per month Sex Assigned at Date Recorded Not on file documented as of this encounter Last Filed Vital Signs Vital Sign Reading Time Taken Comments Blood Pressure 136/88 06/03/2016 10:55 AM CONCRETE PAVER Pulse 77 06/03/2016 10:55 AM CONCRETE PAVER Temperature 37.2 ??C (98.9 ??F) 06/03/2016 10:55 AM CONCRETE PAVER Respiratory Rate 16 06/03/2016 10:55 AM CONCRETE PAVER Oxygen Saturation 96% 06/03/2016 10:55 AM CONCRETE PAVER Inhaled Oxygen Concentration - - Weight 92.5 kg (204 lb) 06/03/2016 10:55 AM CONCRETE PAVER Height 170.2 cm (5' 7) 06/03/2016 10:55 AM CONCRETE PAVER Body Mass Index 31.95 06/03/2016 10:55 AM CONCRETE PAVER documented in this encounter Patient Instructions Patient InstructionsToHiral cuevas CMA - 06/02/2016 6:20 PM CST Before Your Surgery ??? Call your surgeon if there is any change in your health. This includes signs of a cold or flu (such as a sore throat, runny nose, cough, rash or fever). ??? Do not smoke, drink alcohol or take over the counter medicine (unless your surgeon or primary care doctor tells you to) for the 24 hours before and after surgery. ??? If you take prescribed drugs: Follow your doctor???s orders about which medicines to take and which to stop until after surgery. ??? Eating and drinking prior to surgery: follow the instructions from your surgeon ??? Take a shower or bath the night before surgery. Use the soap your surgeon gave you to gently clean your skin. If you do not have soap from your surgeon, use your regular soap. Do not shave or scrubthe surgery site. Wear clean pajamas and have clean sheets on your bed. RETE PAVER documented in this encounter Progress Notes Carlos Chapman MD - 06/02/2016 6:20 PM CST [address], [address] [facility] [id number] Dept: [phone] PRE-OP EVALUATION: Today's date: 06/03/2016 Ronn Hinkle (: 1985) presents for pre-operative evaluation assessment as requested by . He requires evaluation and anesthesia risk assessment prior t undergoing surgery/procedure for treatment of Tympanic perforation. Proposed procedure: left ear- tympanoplasty Date of Surgery/ Procedure: 1/10/17 Time of Surgery/ Procedure: 6am Hospital/Surgical Facility: [facility] Fax number for surgical facility: Primary Physician: Carlos Chapman Type of Anesthesia Anticipated: General Patient has a Health Care Directive or Living Will: NO 1. NO - Do you have a history of heart attack, stroke, stent, bypass or surgery on an artery in the head, neck, heart or legs? 2. NO - Do you ever have any pain or discomfort in your chest? 3. NO - Do you have a history of Heart Failure? 4. YES - ARE YOUR TROUBLED BY SHORTNESS OF BREATH WHEN WALKING ON THE LEVEL, UP A SLIGHT HILL OR AT NIGHT? 5. NO - Do you currently have a cold, bronchitis or other respiratory infection? 6. NO - Do you have a cough, shortness of breath or wheezing? 7. NO - Do you sometimes get pains in the calves of your legs when you walk? 8. NO - Do you or anyone in your family have previous history of blood clots? 9. NO - Do you or does anyone in your family have a serious bleeding problem such as prolonged bleeding following surgeries or cuts? 10. NO - Have you ever had problems with anemia or been told to take iron pills? 11. NO - Have you had any abnormal blood loss such as black, tarry or bloody stools, or abnormal vaginal bleeding? 12. NO - Have you ever had a blood transfusion? 13. NO - Have you or any of your relatives ever had problems with anesthesia? 14. NO - Do you have sleep apnea, excessive snoring or daytime drowsiness? 15. NO - Do you have any prosthetic heart valves? 16. NO - Do you have prosthetic joints? 17. NO - Is there any chance that you may be ? HPI: Brief HPI related to upcoming procedure: persistent TM rupture, going in for repair. Feeling normal recently - neuropathy and myalgia. Otherwise well with no fever, congestion, cough CP, n/v, rash. See problem list for active medical problems. Problems all longstanding and stable, except as noted/documented. See ROS for pertinent symptoms related to these conditions. . MEDICAL HISTORY: Patient Active Problem List Diagnosis Date Noted ??? Vitamin D deficiency 03/18/2016 Priority: Medium ??? Advance Care Planning 01/13/2016 Priority: Medium Advance Care Planning 01/13/2016: Receipt of ACP document: Received: Resuscitation Guidelines order which was signed and dated by provider on 01/08/2016. Document not previously scanned. Reviewed for validity as medical order and sent to be scanned. Code Status reflects choices in most recent ACP document. Confirmed/documented designated decision maker(s). Added by Stefany Lau ??? Benign essential hypertension 12/10/2015 Priority: Medium ??? Chronic pain syndrome 11/04/2015 Priority: Medium Patient is followed by PATEL JC for ongoing prescription of pain medication. All refills should be approved by this provider, or covering partner. Medication(s): medical cannabis. Maximum quantity per month: not prescribed by [facility] visit frequency required: also managed by [facility] Controlled substance agreement on file: No Pain Clinic evaluation in the past: Yes Date/Location: [facility] 11/2014 and new referral 10/2015 DIRE Total Score(s): No flowsheet data found. Last [facility] website verification: done on 11/04/2015 [email or web address] ??? 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 ??? Dizziness 03/09/2014 Priority: Medium ??? Health Alf 03/06/2014 Priority: Medium Status: Resources provided Marketing Recruiter: Ammy Olivera RN [phone], Susan LANDIS [phone] (no active care coordination) See Letters for [facility] Emergency Care Plan Date: March 06, 2014 ??? Muscle stiffness 02/21/2014 Priority: Medium ??? H/O testicular cancer 10/26/2012 Priority: Medium S/p L orchiectomy ??? CARDIOVASCULAR SCREENING; LDL GOAL LESS THAN 160 10/25/2012 Priority: Medium Past Medical History Diagnosis Date ??? Testicular cancer (H) 1998 ??? Palpitations ??? Hypertension ??? Neuromuscular disorder (H) Past Surgical History Procedure Laterality Date ??? Orchiectomy inguinal 1998 L testicular ca, with spinal met Current Outpatient Prescriptions Medication Sig Dispense Refill ??? ibuprofen (ADVIL,MOTRIN) 600 MG tablet Take 1 tablet (600 mg) by mouth every 6 hours as needed for moderate pain 30 tablet 1 ??? cholecalciferol (VITAMIN D3) 89357 UNITS capsule Take 1 capsule (50,000 Units) by mouth once a week 12 capsule 0 ??? fluticasone (FLONASE) 50 MCG/ACT nasal spray [place] 1-2 sprays into both nostrils daily 1 [...] ??? fluticasone (FLONASE) 50 MCG/ACT nasal spray [place] 1-2 sprays into both nostrils daily 1 [...] taking medical cannabis.) 0 Information only 0 OTC products: no recent use of OTC ASA, NSAIDS or Steroids No Known Allergies Latex Allergy: NO Social History Substance Use Topics ??? Smoking status: Never Smoker ??? Smokeless tobacco: Never Used ??? Alcohol Use: 0.0 oz/week 0 Standard drinks or equivalent per week Comment: couple drinks per month History Drug Use ??? Yes ??? Special: Marijuana REVIEW OF SYSTEMS: C: NEGATIVE for fever, chills, change in weight E/M: NEGATIVE for ear, mouth and throat problems R: NEGATIVE for significant cough or SOB CV: NEGATIVE for chest pain, palpitations or peripheral edema EXAM: BP 136/88 mmHg Pulse 77 Temp(Src) 98.9 ??F (37.2 ??C) (Oral) Resp 16 Ht 5' 7 (1.702 m) Wt204 lb (92.534 kg) BMI 31.94 kg/m2 SpO2 96% GENERAL APPEARANCE: healthy, alert and no distress HENT: ear canals and R TM normal and nose and mouth without ulcers or lesions RESP: lungs clear to auscultation - no rales, rhonchi or wheezes CV: regular rate and rhythm, normal S1 S2, no S3 or S4 and no murmur, click or rub ABDOMEN: soft, nontender, no HSM or masses and bowel sounds normal NEURO: Normal strength and tone, sensory exam grossly normal, mentation intact and speech normal DIAGNOSTICS: EKG: Not indicated due to non-vascular surgery and low risk of event (age <65 and without cardiacrisk factors) Recent Labs Lab Test 03/19/16 1710 03/19/16 0812 08/07/15 1005 01/10/15 0307 HGB 15.4 14.8 < > 15.7 16.1 PLT 204 213 < > 226 181 INR -- -- -- 1.02 0.95 NA 139 139 < > 139 136 POTASSIUM 3.6 3.7 < > 3.7 5.2 CR 1.09 0.94 < > 0.99 0.92 A1C -- 5.1 -- -- -- < > = values in this interval not displayed. IMPRESSION: Reason for surgery/procedure: perforated tympanum Diagnosis/reason for consult: preoperative clearance The proposed surgical procedure is considered LOW risk. REVISED CARDIAC RISK INDEX The patient has the following serious cardiovascular risks for perioperative complications such as (SD, PE, VFib and 3?? AV Block): No serious cardiac risks INTERPRETATION: 0 risks: Class I (very low risk - 0.4% complication rate) The patient has the following additional risks for perioperative complications: No identified additional risks ICD-10-CM 1. Preop general physical exam Z01.818 2. Screening for diabetic retinopathy Z13.5 OPHTHALMOLOGY ADULT REFERRAL 3. Screening for diabetic peripheral neuropathy Z13.89 FOOT EXAM NO CHARGE [83860.114] 4. Need for prophylactic vaccination and inoculation against influenza Z23 5. Need for prophylactic vaccination against Streptococcus pneumoniae (pneumococcus) Z23 6. Vitamin D deficiency E55.9 cholecalciferol (VITAMIN D3) 76524 UNITS capsule 7. Acute suppurative otitis media of left ear with spontaneous rupture of tympanic membrane, recurrence not specified H66.012 fluticasone (FLONASE) 50 MCG/ACT spray 8. Benign essential hypertension I10 lisinopril (PRINIVIL/ZESTRIL) 20 MG tablet RECOMMENDATIONS: --Patient is to take all scheduled medications on the day of surgery EXCEPT for modifications listedbelow. APPROVAL GIVEN to proceed with proposed procedure, without further diagnostic evaluation Signed Electronically by: Carlos Chapman MD Copy of this evaluation report is provided to requesting physician. [facility] Preop Guidelines RETE PAVER documented in this encounter Nursing Notes Hiral Purcell CMA - 06/03/2016 11:03 AM CST Chief Complaint Patient presents with ??? Pre-Op Exam Initial BP 136/88 mmHg Pulse 77 Temp(Src) 98.9 ??F (37.2 ??C) (Oral) Resp 16 Ht 5' 7 (1.702m) Wt 204 lb (92.534 kg) BMI 31.94 kg/m2 SpO2 96% Estimated body mass index is 31.94 kg/(m^2) as calculated from the following: Height as of this encounter: 5' 7 (1.702 m). Weight as of this encounter: 204 lb (92.534 kg). BP completed using cuff size: large Hiral Purcell CMA [employer]E PAVER documented in this encounter Plan of Treatment Not on filedocumented as of this encounter Results (ABNORMAL) Lipid panel reflex to direct LDL (06/04/2016 9:05 AM CONCRETE PAVER) P athologist Signature Cholesterol 234 (H) <200 mg/dL [facility] Comment: Desirable: <200 mg/dl Triglycerides 174 (H) <150 mg/dL [facility] Comment: Borderline high: ??150-199 mg/dl High: ? 200-499 mg/dl Very high: ? >499 mg/dl HDL Cholesterol 41 >39 mg/dL [facility] LDL Cholesterol Calculated 158 (H) <100 mg/dL [facility] Comment: Above desirable: ??100-129 mg/dl Borderline High: ??130-159 mg/dL High: ? 160-189 mg/dL Very high: ? >189 mg/dl Non HDL Cholesterol 193 (H) <130 mg/dL [facility] Comment: Above Desirable: ??130-159 mg/dl Borderline high: ??160-189 mg/dl High: ? 190-219 mg/dl Very high: ? >219 mg/dl Specimen Anatomical Collection Method Collection Time Receive d Time (Source) Location / / Volume Laterality Blood specimen 06/04/2016 9:05 AM 017 9:06 (specimen) CONCRETE PAVER AM CONCRETE PAVER Carlos Chapman MD LAB - BLOOD ORDERABLES Performing Organization Address City/State/ZIP Code Phon e Number [facility] [address] [place] [address] documented in this encounter Visit Diagnoses Diagnosis Preop general physical exam - Primary Other specified pre-operative examinatio n Perforated tympanic membrane, left Vitamin D deficiency Unspecified vitamin D deficiency Acute suppurative otitis media of left e ar with spontaneous rupture of tympanic membrane, recurrence not specified Benign essential hypertension Essential hypertension, benign CARDIOVASCULAR SCREENING; LDL GOAL LESS THAN 130 documented in this encounter Additional Health Concerns Assessment Noted Time PHQ-9 Depression Total Score: 5 03/20/2016 7:18 AM CDT documented as of this encounter Care Teams Church Organist Relationship Specialty Start Date End Date Carlos Chapman PCP - General Family Practice 02/06/14 04/29/19 MD Saw Aida Hdz, Clinic Marketing Recruiter [employer] - 12/12/15 01/21/17 [facility] Clinical documented as of this encounter
--- OUTSIDE RECORDS SUMMARY | 2022-03-31 16:55 | XMS_ITS | Encounter Summary ---
:1985 Author Organization [place] Address [address] [place] [address] Care Team Providers Name Role Phone Carlos Chapman MD Primary Care Provider [phone] Aida Hdz LGSW Unavailable Encounter Details Date Type Department Care Team Description 03/19/2016 Orders Only [facility] Vit norris D deficiency; [facility] Polymyalgia (H); [id number] Muscle stiffness; [place] [address] H/O testicular cancer; [phone] Elevated glucos e; Family history of diabetes mellitus Social History Tobacco Use Types Packs/Day Years Used Date Smoking Tobacco: Never Smokeless Tobacco: Never Alcohol Use Standard Drinks/Week Comments Yes 0 (1 standard drink = 0.6 oz pure alcoho l) couple drinks per month Sex Assigned at Date Recorded Not on file documented as of this encounter Progress Notes Geri Camarillo APRN E COMMERCE MARKETING ANALYST - 03/21/2016 6:24 AM CDT Quick Note: Ronn, Here's a copy of your recent lab results for your records. I have reviewed all the results and I do not see any abnormalities that might be causing your symptoms. Your testosterone level is normal, the free testosterone level is the most accurate measure and your free testosterone level is in the middle of the normal range. Your thyroid and adrenal gland function are normal. Your vitamin D level looks good. Your blood sugar was minimally elevated but other diabetes/prediabetes measures (A1c, cpeptide) arenormal and I see no indication of prediabetes. Your iron stores are normal. Inflammatory markers are not elevated. Lab results are essentially normal. I'm glad that everything I tested is normal, however I understand this does not help explain your symptoms. Please see your primary care provider if you continue to have unexplained symptoms. Please let me know if you have any questions. It was a pleasure meeting you. Thank you for allowing me to participate in your health care. Geri Camarillo NP Endocrinology documented in this encounter Plan of Treatment Not on filedocumented as of this encounter Procedures Procedure Name Priority Date/Time Associated Comments Diagnosis TESTOSTERONE FREE AND Routine 03/19/2016 8:12 AM Vitamin D Results for this TOTAL CDT deficiency procedure are in Polymyalgia (H) the results Muscle stiffness section. H/O testicular cancer Elevated glucose Family history of diabetes mellitus VITAMIN D DEFICIENCY Routine 03/19/2016 8:12 AM Vitamin D R esults for this SCREENING CDT deficiency procedure are in Polymyalgia (H) the results Muscle stiffness section. H/O testicular cancer Elevated glucose Family history of diabetes mellitus TSH Routine 03/19/2016 8:12 AM Vitamin D Results f or this CDT deficiency procedure are in Polymyalgia (H) the results Muscle stiffness section. H/O testicular cancer Elevated glucose Family history of diabetes mellitus T4 FREE Routine 03/19/2016 8:12 AM Vitamin D Results f or this CDT deficiency procedure are in Polymyalgia (H) the results Muscle stiffness section. H/O testicular cancer Elevated glucose Family history of diabetes mellitus PARATHYROID HORMONE Routine 03/19/2016 8:12 AM Vitamin D Re sults for this INTACT CDT deficiency procedure are in Polymyalgia (H) the results Muscle stiffness section. H/O testicular cancer Elevated glucose Family history of diabetes mellitus HEMOGLOBIN A1C Routine 03/19/2016 8:12 AM Vitamin D Results for this CDT deficiency procedure are in Polymyalgia (H) the results Muscle stiffness section. H/O testicular cancer Elevated glucose Family history of diabetes mellitus FERRITIN Routine 03/19/2016 8:12 AM Vitamin D Results f or this CDT deficiency procedure are in Polymyalgia (H) the results Muscle stiffness section. H/O testicular cancer Elevated glucose Family history of diabetes mellitus ERYTHROCYTE Routine 03/19/2016 8:12 AM Vitamin D Results f or this SEDIMENTATION RATE CDT deficiency procedure are in AUTO Polymyalgia (H) the results Muscle stiffness section. H/O testicular cancer Elevated glucose Family history of diabetes mellitus CORTISOL Routine 03/19/2016 8:12 AM Vitamin D Results f or this CDT deficiency procedure are in Polymyalgia (H) the results Muscle stiffness section. H/O testicular cancer Elevated glucose Family history of diabetes mellitus COMPREHENSIVE Routine 03/19/2016 8:12 AM Vitamin D Results for this METABOLIC PANEL CDT deficiency procedure are in Polymyalgia (H) the results Muscle stiffness section. H/O testicular cancer Elevated glucose Family history of diabetes mellitus CK TOTAL Routine 03/19/2016 8:12 AM Vitamin D Results f or this CDT deficiency procedure are in Polymyalgia (H) the results Muscle stiffness section. H/O testicular cancer Elevated glucose Family history of diabetes mellitus C-PEPTIDE Routine 03/19/2016 8:12 AM Vitamin D Results f or this CDT deficiency procedure are in Polymyalgia (H) the results Muscle stiffness section. H/O testicular cancer Elevated glucose Family history of diabetes mellitus CBC WITH PLATELETS Routine 03/19/2016 8:12 AM Vitamin D Res ults for this CDT deficiency procedure are in Polymyalgia (H) the results Muscle stiffness section. H/O testicular cancer Elevated glucose Family history of diabetes mellitus documented in this encounter Results CK total (03/19/2016 8:12 AM CDT) athologist [facility] CK Total 82 30 - 300 [facility] U/L [facility] Specimen Anatomical Collection Method Collection Time Receive d Time (Source) Location / / Volume Laterality Blood specimen 03/19/2016 8:12 AM 016 8:13 (specimen) CDT AM CDT Geri Camarillo APRN E [employer]ERCE MARKETING ANALYST LAB - BLOOD ORDERABLES Performing Organization Address City/State/ZIP Code Phon e Number [facility] [address] [place] [address] C-peptide (03/19/2016 8:12 AM CDT) athologist [facility] C Peptide 4.8 0.9 - 6.9 [facility] ng/mL [facility] Specimen Anatomical Collection Method Collection Time Receive d Time (Source) Location / / Volume Laterality Blood specimen 03/19/2016 8:12 AM 016 8:13 (specimen) CDT AM CDT Geri Ayaka Camarillo APRN E COMMERCE MARKETING ANALYST LAB - BLOOD ORDERABLES Performing Organization Address City/State/ZIP Code Phon e Number [facility] [address] [place] [address] [facility] Parathyroid Hormone Intact (03/19/2016 8:12 AM CDT) P athologist Signature Parathyroid 14 12 - 72 [facility] Hormone Intact pg/mL [facility] Specimen Anatomical Collection Method Collection Time Receive d Time (Source) Location / / Volume Laterality Blood specimen 03/19/2016 8:12 AM 016 8:13 (specimen) CDT AM CDT Geri Ayaka Camarillo APRN E COMMERCE MARKETING ANALYST LAB - BLOOD ORDERABLES Performing Organization Address City/[facility]/ZIP Code Phon e Number [facility] [address] [place] [address] [facility] Ferritin (03/19/2016 8:12 AM CDT) athologist Signature Ferritin 130 26 - 388 [facility] ng/mL [facility] Specimen Anatomical Collection Method Collection Time Receive d Time (Source) Location / / Volume Laterality Blood specimen 03/19/2016 8:12 AM 016 8:13 (specimen) CDT AM CDT Geri Ayaka Camarillo APRN E COMMERCE MARKETING ANALYST LAB - BLOOD ORDERABLES Performing Organization Address City/[facility]/ZIP Code Phon e Number [facility] [address] [place] [address] (ABNORMAL) CBC with platelets (03/19/2016 8:12 AM CDT) Analysis Performed At Patho logist Time Signature WBC 11.4 (H) 4.0 - 11.0 [facility] 10e9/L [facility] RBC Count 4.77 4.4 - 5.9 [facility] 10e12/L [facility] Hemoglobin 14.8 13.3 - [facility] 17.7 g/dL [facility] Hematocrit 42.3 40.0 - [facility] 53.0 % [facility] MCV 89 78 - [address] [facility] fl [facility] MCH 31.0 26.5 - [facility] 33.0 pg [facility] MCHC 35.0 31.5 - [facility] 36.5 g/dL [facility] RDW 12.6 10.0 - [facility] 15.0 % [facility] Platelet Count 213 150 - 450 [facility] 10e9/L [facility] Specimen Anatomical Collection Method Collection Time Receive d Time (Source) Location / / Volume Laterality Blood specimen 03/19/2016 8:12 AM 016 8:13 (specimen) CDT AM CDT Geri Camarillo APRN E COMMERCE MARKETING ANALYST LAB - BLOOD ORDERABLES Performing Organization Address City/[facility]/ZIP Code Phon e Number [facility] [address] [place] [phone] Cortisol (03/19/2016 8:12 AM CDT) P athologist Signature Cortisol Serum 14.4 4 - 22 [facility] ug/dL [facility] Comment: 8 AM Cortisol Reference Range = 4-22 ug/ dL 4 PM Cortisol Reference Range = 3-17 ug /dL Specimen Anatomical Collection Method Collection Time Receive d Time (Source) Location / / Volume Laterality Blood specimen 03/19/2016 8:12 AM 016 8:13 (specimen) CDT AM CDT Geri Camarillo APRN, CNP LAB - BLOOD ORDERABLES Performing Organization Address City/[facility]/ZIP Code Phon e Number [facility] [address] [place] [address] [facility] (ABNORMAL) Comprehensive metabolic panel (03/19/2016 8:12 AM CDT) Patholo gist Method Time Signature Sodium 139 133 - 144 [facility] mmol/L [facility] Potassium 3.7 3.4 - 5.3 [facility] mmol/L [facility] Chloride 110 (H) 94 - 109 [facility] mmol/L [facility] Carbon Dioxide 22 20 - 32 [facility] mmol/L [facility] Anion Gap 7 3 - 14 [facility] mmol/L [facility] Glucose 101 (H) 70 - 99 [facility] mg/dL [facility] Urea Nitrogen 14 7 - 30 [facility] mg/dL [facility] Creatinine 0.94 0.66 [facility] 1.25 [facility] mg/dL [facility] GFR Estimate >90 >60 [facility] Non GFR Calc mL/min/1. CLINICS 7m2 [facility] GFR Estimate If >90 >60 [facility] [place] Black GFR Calc mL/min/1. CLIN ICS 7m2 [facility] Calcium 9.2 8.5 - [place] 10.1 [facility] mg/dL [facility] Bilirubin Total 0.5 0.2 - 1.3 [facility] mg/dL [facility] Albumin 4.0 3.4 - 5.0 [facility] g/dL [facility] Protein Total 7.6 6.8 - 8.8 [facility] g/dL [facility] Alkaline 105 40 - 150 [facility] [place] Phosphatase U/L [facility] ALT 60 0 - 70 [facility] U/L [facility] AST 27 0 - 45 [facility] U/L [facility] Specimen Anatomical Collection Method Collection Time Receive d Time (Source) Location / / Volume Laterality Blood specimen 03/19/2016 8:12 AM 016 8:13 (specimen) CDT AM CDT Geri Camarillo APRN, CNP LAB - BLOOD ORDERABLES Performing Organization Address City/State/ZIP Code Phon e Number [facility] [address] [place] [address] Hemoglobin A1c (03/19/2016 8:12 AM CDT) athologist Signature Hemoglobin A1C 5.1 4.3 - 6.0 [facility] [place] % [facility] Specimen Anatomical Collection Method Collection Time Receive d Time (Source) Location / / Volume Laterality Blood specimen 03/19/2016 8:12 AM 016 8:13 (specimen) CDT AM CDT Geri Camarillo APRN E COMMERCE MARKETING ANALYST LAB - BLOOD ORDERABLES Performing Organization Address City/[facility]/ZIP Code Phon e Number [facility] [address] [place], [place] [address] Vitamin D Deficiency (03/19/2016 8:12 AM CDT) athologist Signature Vitamin D 48 20 - 75 [facility] Deficiency ug/L [facility] Comment: Season, race, dietary intake, and treatm ent affect the concentration of 00-aopnkyv-Uqcpary D. Values may decrea se during winter [...] LAB - BLOOD ORDERABLES Performing Organization Address City/[facility]/ZIP Code Phon e Number [facility] [address] [place] [address] [facility] Erythrocyte sedimentation rate auto (03/19/2016 8:12 AM CDT) P athologist Signature Sed Rate 5 0 - 15 mm/h [facility] Specimen Anatomical Collection Method Collection Time Receive d Time (Source) Location / / Volume Laterality Blood specimen 03/19/2016 8:12 AM 016 8:13 (specimen) CDT AM CDT Geri Camarillo APRN, CNP LAB - BLOOD ORDERABLES Performing Organization Address City/[facility]/ZIP Code Phon e Number [facility] [address] [place], [place] [address] Testosterone Free and Total (03/19/2016 8:12 AM CDT) Analysis Performed At Patho logist Time Signature Testosterone 317 240 - 950 [facility] Total ng/dL [facility] Comment: This test was developed and its performa nce characteristics determined by the [facility], ??Special Chemistry Laboratory. It has not been cleared or approved by the FDA . The laboratory is regulated under CLIA as qualified to perform high-complexity testing. This test is used for clinical purposes. It should not be regarded as investigational or for research. Sex Hormone Binding Globulin 13 11 - 80 nmol/L [facility] Free Testosterone Calculated 9.54 4.7 - 24.4 ng/dL [facility] Specimen Anatomical Collection Method Collection Time Receive d Time (Source) Location / / Volume Laterality Blood specimen 03/19/2016 8:12 AM 016 8:13 (specimen) CDT AM CDT Geri Camarillo APRN E COMMERCE MARKETING ANALYST LAB - BLOOD ORDERABLES Performing Organization Address City/State/ZIP Code Phon e Number [facility] [address] [place] [address] [facility] T4 FREE (03/19/2016 8:12 AM CDT) P athologist Signature T4 Free 1.00 0.76 - 1.46 [facility] ng/dL [facility] Specimen Anatomical Collection Method Collection Time Receive d Time (Source) Location / / Volume Laterality Blood specimen 03/19/2016 8:12 AM 016 8:13 (specimen) CDT AM CDT Geri Camarillo APRN, CNP LAB - BLOOD ORDERABLES Performing Organization Address City/[facility]/ZIP Code Phon e Number [facility] [address] [place] [phone] TSH (03/19/2016 8:12 AM CDT) P athologist Signature TSH 1.88 0.40 - 4.00 [facility] mU/L [facility] Specimen Anatomical Collection Method Collection Time Receive d Time (Source) Location / / Volume Laterality Blood specimen 03/19/2016 8:12 AM 016 8:13 (specimen) CDT AM CDT Geri Camarillo APRN E COMMERCE MARKETING ANALYST LAB - BLOOD ORDERABLES Performing Organization Address City/[facility]/ZIP Code Phon e Number [facility] [address] [place] [phone] documented in this encounter Visit Diagnoses Diagnosis Vitamin D deficiency Unspecified vitamin D deficiency Polymyalgia (H) Polymyalgia rheumatica Muscle stiffness Unspecified disorder of muscle, ligament , and fascia H/O testicular cancer Personal history of malignant neoplasm o f testis Elevated glucose Other abnormal glucose Family history of diabetes mellitus documented in this encounter Additional Health Concerns Assessment Noted Time PHQ-9 Depression Total Score: 5 03/20/2016 7:18 AM CDT documented as of this encounter Care Teams Internal Wholesaler Relationship Specialty Start Date End Date Carlos Chapman PCP - General Family Practice 02/06/14 04/29/19 MD Saw Aida Hdz, Clinic Provider Relations Specialist Supervisor [employer] - 12/12/15 01/21/17 [facility] Clinical documented as of this encounter
--- OUTSIDE RECORDS SUMMARY | 2022-03-31 16:55 | XMS_ITS | Encounter Summary ---
:1985 Author Organization [place] Address [address] [facility] [place] [address] Care Team Providers Name Role Phone Carlos Chapman MD Primary Care Provider [phone] Aida Hdz [facility] Unavailable Reason for Visit Reason Onset Date Comments Patient Request for Note/Letter 04/13/2016 update [address] letter for [employer] Encounter Details Date Type Department Care Team Description 04/13/2016 Telephone [facility] Carlos Chapman Patient R equest for Clinic Carmita Spring MD Note/Letter (update [address] 11/19/15 driving letter [place], [place] [address] for [employer] [id number] [phone] Social History Tobacco Use Types Packs/Day Years Used Date Smoking Tobacco: Never Smokeless Tobacco: Never Alcohol Use Standard Drinks/Week Comments Yes 0 (1 standard drink = 0.6 oz pure alcoho l) couple drinks per month Sex Assigned at Date Recorded Not on file documented as of this encounter Miscellaneous Notes Telephone Encounter - Yaritza Blackwood - 04/13/2016 1:51 PM DIESEL MAINTENANCE ELECTRICIAN Faxed to Thien, temporary copy is kept at the [facility] station. Salvatore Blackwood Sleeve Machine Tender EL MAINTENANCE ELECTRICIAN Telephone Encounter - Carlos Chapman MD - 04/13/2016 1:05 PM DIESEL MAINTENANCE ELECTRICIAN Letter signed Carlos Chapman MD EL MAINTENANCE ELECTRICIAN Telephone Encounter - Devin Arcos, RN - 04/13/2016 12:41 PM CST Pt states he needs 11/19/15 letter re driving updated for [facility] A letter came in the mail to him today stating this needed updating by March 13. I know. Fax to Attn: Thien Hilliard at [facility] : [phone] Case # [id number] added to letter per pt request. Pt verified work status is still unknown. T'd up for Dr. Chapman to edit/sign. Thanks! Devin Arcos, RN EL MAINTENANCE ELECTRICIAN documented in this encounter Plan of Treatment Not on filedocumented as of this encounter Visit Diagnoses Not on filedocumented in this encounter Additional Health Concerns Assessment Noted Time PHQ-9 Depression Total Score: 5 03/20/2016 7:18 AM CDT documented as of this encounter Care Teams Pond Supervisor Relationship Specialty Start Date End Date Carlos Chapman PCP - General Family Practice 02/06/14 04/29/19 MD Saw Aida Hdz, Clinic Zipper Joiner Trim Sawyer - 12/12/15 01/21/17 [facility] Clinical documented as of this encounter
--- OUTSIDE RECORDS SUMMARY | 2022-03-31 16:55 | XMS_ITS | Encounter Summary ---
:1985 Author Organization [place] Address [facility] [place] [address] Care Team Providers Name Role Phone Carlos Chapman MD Primary Care Provider [phone] Aida Hdz [facility] Unavailable Reason for Visit Reason Comments Ear Problem Encounter Details Date Type Department Care Team Description 03/26/2016 Office Visit [facility] Mic Hester Acute suppurative otitis media of left ear with spontaneous rupture of tympanic membrane, recurrence not specified (Primary Dx); Clinic [place] DANIKA Gramajo Benign essential hypertension [place] [address] [facility], [address] [place] [phone] Social History Tobacco Use Types Packs/Day Years Used Date Smoking Tobacco: Never Smokeless Tobacco: Never Alcohol Use Standard Drinks/Week Comments Yes 0 (1 standard drink = 0.6 oz pure alcoho l) couple drinks per month Sex Assigned at Date Recorded Not on file documented as of this encounter Last Filed Vital Signs Vital Sign Reading Time Taken Comments Blood Pressure 122/84 03/26/2016 1:50 PM CDT Pulse 92 03/26/2016 1:50 PM CDT Temperature 36.8 ??C (98.3 ??F) 03/26/2016 1:50 PM CDT Respiratory Rate 20 03/26/2016 1:50 PM CDT Oxygen Saturation 96% 03/26/2016 1:50 PM CDT Inhaled Oxygen Concentration - - Weight 91.3 kg (201 lb 3.2 oz) 03/26/2016 1:50 PM CDT Height 170.2 cm (5' 7) 03/26/2016 1:50 PM CDT Body Mass Index 31.51 03/26/2016 1:50 PM CDT documented in this encounter Progress Notes Mic Hester PA-C - 03/26/2016 1:04 PM CDT SUBJECTIVE: Ronn Hinkle is a 30 year old male who presents to clinic today for the following health issues: Patient would also like to discuss lab results, unable to access his mychart. EAR PROBLEM ?? Duration: started 7 days ago. ?? Description (location/character/radiation): left ear hurts, pressure and left side of face was swollen. ?? Intensity: moderate ?? Accompanying signs and symptoms: none ?? History (similar episodes/previous evaluation): was seen last week and was given ear drops. ?? Precipitating or alleviating factors: None ?? Therapies tried and outcome: ear drops, did not help. Nathan is here for today for left ear pain. Was seen 03/19/16 at the ER and was given ear drops. Patient reports these drops did not help. Patient had a right ear infection 03/03/16. Reports this pain is some what better. Notes he has placed some of his ear drops for his left ear into his right to help with pain. Reports to have finished his antibiotics. Patient notes the pain is constant in his left ear, along with a plugged feeling. Reports that he cannot hear anything out of his left ear. Problem list and histories reviewed & adjusted, as indicated. Additional history: as documented BP Readings from Last 3 Encounters: 03/26/16 122/84 03/19/16 145/87 03/19/16 124/82 Wt Readings from Last 3 Encounters: 03/26/16 91.264 kg (201 lb 3.2 oz) 03/19/16 92.08 kg (203 lb) 03/19/16 92.262 kg (203 lb 6.4 oz) Labs reviewed in [facility] Problem list, Medication list, Allergies, and Medical/Social/Surgical histories reviewed in [facility] andupdated as appropriate. ROS: CONSTITUTIONAL:NEGATIVE for fever, chills, change in weight INTEGUMENTARY/SKIN: NEGATIVE for worrisome rashes, moles or lesions EYES: NEGATIVE for vision changes or irritation ENT/MOUTH: POSITIVE for Hx ear infections, Hx otitis externa and sinus pressure MUSCULOSKELETAL: NEGATIVE for significant arthralgias or myalgia PSYCHIATRIC: NEGATIVE for changes in mood or affect This document serves as a record of the services and decisions personally performed and made by Mic Hester PA-C. It was created on her behalf by Aida Chiu, a trained bacteriologist medical. The creation of this document is based the provider's statements to the bacteriologist medical. Aida Chiu March 26, 2016 1:59 PM OBJECTIVE: BP 122/84 mmHg Pulse 92 Temp(Src) 98.3 ??F (36.8 ??C) (Oral) Resp 20 Ht 1.702 m (5' 7) Wt91.264 kg (201 lb 3.2 oz) BMI 31.51 kg/m2 SpO2 96% Body mass index is 31.51 kg/(m^2). GENERAL: healthy, alert and no distress EYES: Eyes grossly normal to inspection, PERRL and conjunctivae and sclerae normal HENT: normal cephalic/atraumatic, right ear: normal: no effusions, no erythema, normal landmarks, left ear: TM perforation and purulent drainage in canal, nose and mouth without ulcers or lesions, oropharynx clear and oral mucous membranes moist NECK: no adenopathy, no asymmetry, masses, or scars and thyroid normal to palpation MS: no gross musculoskeletal defects noted, no edema SKIN: no suspicious lesions or rashes NEURO: Normal strength and tone, mentation intact and speech normal PSYCH: mentation appears normal, affect normal/bright Diagnostic Test Results: none ASSESSMENT/PLAN: 1. Acute suppurative otitis media of left ear with spontaneous rupture of tympanic membrane, recurrence not specified Perforation of left TM and drainage. Prescribed antibiotic to use for next ten days and nasal spray to help with congestion. Advised patient to return to clinic - amoxicillin-clavulanate (AUGMENTIN) 875-125 MG per tablet; Take 1 tablet by mouth 2 times daily Dispense: 20 tablet; Refill: 0 - fluticasone (FLONASE) 50 MCG/ACT nasal spray; [place] 1-2 sprays into both nostrils daily Dispense: 1 Bottle; Refill: 11 2. Benign essential hypertension Reports to doing fine on the lisinopril. Advised to continue with medication. Microalbumin lab ordered. - MICROALBUMIN QUANTITATIVE RANDOM URINE The information in this document, created by the bacteriologist medical for me, accurately reflects the services I personally performed and the decisions made by me. I have reviewed and approved this document for accuracy prior to leaving the patient care area. 1:59 PM 03/26/[address]-C [facility] Physical Exam documented in this encounter Nursing Notes Stephania Tubbs - 03/26/2016 1:53 PM CDT Chief Complaint Patient presents with ??? Ear Problem Initial BP 122/84 mmHg Pulse 92 Temp(Src) 98.3 ??F (36.8 ??C) (Oral) Resp 20 Ht 5' 7 (1.702m) Wt 201 lb 3.2 oz (91.264 kg) BMI 31.51 kg/m2 SpO2 96% Estimated body mass index is 31.51 kg/(m^2) as calculated from the following: Height as of this encounter: 5' 7 (1.702 m). Weight as of this encounter: 201 lb 3.2 oz (91.264 kg). BP completed using cuff size: large Stephania Tubbs MA documented in this encounter Plan of Treatment Not on filedocumented as of this encounter Procedures Procedure Name Priority Date/Time Associated Diagnosis Comme nts ALBUMIN RANDOM URINE Routine 03/26/2016 2:37 PM Benign essenti al Results for this QUANTITATIVE CDT hypertension procedure are i n the results section. documented in this encounter Results MICROALBUMIN QUANTITATIVE RANDOM URINE (03/26/2016 2:37 PM CDT) P athologist Signature Creatinine 170 mg/dL BERRY Urine [facility] Albumin Urine 7 mg/L BERRY mg/L [facility] Albumin Urine 4.09 0 - 17 BERRY mg/g Cr mg/g Cr [facility] Specimen Anatomical Collection Method Collection Time Receive d Time (Source) Location / / Volume Laterality Urine specimen 03/26/2016 2:37 PM 016 2:38 (specimen) CDT PM CDT Mic Hester PA-C LAB - URINE ORDERABLES Performing Organization Address City/State/ZIP Code Phon e Number [facility] [address] [place] [address] [phone] [facility] [address] [address], [facility] [phone] documented in this encounter Visit Diagnoses Diagnosis Acute suppurative otitis media of left e ar with spontaneous rupture of tympanic membrane, recurrence not specified - Geovanna rivera Benign essential hypertension Essential hypertension, benign documented in this encounter Additional Health Concerns Assessment Noted Time PHQ-9 Depression Total Score: 5 03/20/2016 7:18 AM CDT documented as of this encounter Care Teams Field Reviewer Relationship Specialty Start Date End Date Calros Chapman PCP - General Family Practice 02/06/14 04/29/19 MD Saw Aida Hdz, Clinic Surveillance Specialist Tree Sapper - 12/12/15 01/21/17 [facility] Clinical documented as of this encounter
--- OUTSIDE RECORDS SUMMARY | 2022-03-31 16:55 | XMS_ITS | Encounter Summary ---
:1985 Author Organization [place] Address Pending sale to [facility] [place] [address] Care Team Providers Name Role Phone Carlos Chapman MD Primary Care Provider [phone] Aida Hdz [facility] Unavailable Reason for Visit Reason Onset Date Comments Nurse Advice Line 04/13/2016 reoccuring ear pain Encounter Details Date Type Department Care Team Description 04/13[facility]2016 [facility] Anjel Spring MD (reoccuring ear pain) [address] [facility], [address] [place] [address] [address] [place] [address] [place], [place] [phone] (Wo rk) [address] [phone] Social History Tobacco Use Types Packs/Day Years Used Date Smoking Tobacco: Never Smokeless Tobacco: Never Alcohol Use Standard Drinks/Week Comments Yes 0 (1 standard drink = 0.6 oz pure alcoho l) couple drinks per month Sex Assigned at Date Recorded Not on file documented as of this encounter Miscellaneous Notes Telephone Encounter - Margareth Devries RN - 04/13/2016 10:27 AM CST [facility] [address] at 2:40pm with Dr. Spears. Patient notified. Appointment with Dr. Chapman canceled. Margareth Devries RN GER MAN Telephone Encounter - Carlos Chapman MD - 04/13/2016 10:04 AM PLUGGER MAN Pt later on schedule admitted to impatient. I will move appointment to that slot. I will have my TC call Nathan. Carlos Chapman MD GER MAN Telephone Encounter - Devin Arcos, RN - 04/13/2016 8:29 AM CST Ronn Hinkle is a 30 year old male who calls with 4th episode reoccuring inner ear infection. Last time was seen in [facility] and ear drum blew out a few days later. Completed 3rd round of antibiotics 3-4 days ago and now pain and pressure building again. See PCP or refer to ENT? We scheduled 1 PM visit today >>> my error double book, Dr. Chapman. Schedule auto advanced to an appointment on a different day and I did not catch it until after the call. Please advise OV or refer to ENT ? Devin Arcos, RN GER MAN documented in this encounter Plan of Treatment Not on filedocumented as of this encounter Visit Diagnoses Not on filedocumented in this encounter Additional Health Concerns Assessment Noted Time PHQ-9 Depression Total Score: 5 03/20/2016 7:18 AM CDT documented as of this encounter Care Teams Imaging Scheduler Relationship Specialty Start Date End Date Carlos Chapman PCP - General Family Practice 02/06/14 04/29/19 MD Saw Aida Hdz, Clinic Ent Consultant Supervisor Dairy Sanitation - 12/12/15 01/21/17 [facility] Clinical documented as of this encounter
--- OUTSIDE RECORDS SUMMARY | 2022-03-31 16:55 | XMS_ITS | Encounter Summary ---
:1985 Author Organization [place] Address [facility] [place] [address] Care Team Providers Name Role Phone Carlos Chapman MD Primary Care Provider [phone] Aida Hdz [facility] Unavailable Carlos Chapman MD Unavailable Carlos Chapman MD Unavailable Encounter Details Date Type Department Care Team Description 08/07/2016 Orders Only [facility] Carlos Chapman Hearing l oss of both Clinic Anjel Spring MD ears (Primary Dx) [address] [address] [address] [facility], [address] [place] [address] [place], [place] [phone] (Wo rk) [address] [phone] Social History Tobacco Use Types Packs/Day Years Used Date Smoking Tobacco: Never Smokeless Tobacco: Never Alcohol Use Standard Drinks/Week Comments Yes 0 (1 standard drink = 0.6 oz pure alcoho l) couple drinks per month Sex Assigned at Date Recorded Not on file documented as of this encounter Plan of Treatment Not on filedocumented as of this encounter Visit Diagnoses Diagnosis Hearing loss of both ears - Primary Unspecified hearing loss documented in this encounter Additional Health Concerns Assessment Noted Time PHQ-9 Depression Total Score: 5 03/20/2016 7:18 AM CDT documented as of this encounter Care Teams Gluing Machine Feeder Relationship Specialty Start Date End Date Carlos Chapman PCP - General Family Practice 02/06/14 04/29/19 MD Saw Carlos Chapman PCP - Assigned PCP 06/28/16 08/02/[place] [id number] [address] [place] [address] Aida Hdz, Clinic Teacher Selection Specialist Weaving Loom Operator - 12/12/15 01/21/17 [facility] Clinical Carlos Chapman Assigned PCP 06/28/16 02/24/[place] [id number] [address] [address] documented as of this encounter
--- OUTSIDE RECORDS SUMMARY | 2022-03-31 16:55 | XMS_ITS | Encounter Summary ---
:1985 Author Organization [place] Address [address] [place] [address] Care Team Providers Name Role Phone Carlos Chapman MD Primary Care Provider [phone] Aida Hdz [facility] Unavailable Reason for Visit Reason Onset Date Comments Ear Problem 03/19/2016 Encounter Details Date Type Department Care Team Description 03/19/2016 Telephone [facility] Carlos Chapman MD Ear Problem [place] [address] [facility] [address] [place] [address] [place], [place] [address] [phone] Social History Tobacco Use Types Packs/Day Years Used Date Smoking Tobacco: Never Smokeless Tobacco: Never Alcohol Use Standard Drinks/Week Comments Yes 0 (1 standard drink = 0.6 oz pure alcoho l) couple drinks per month Sex Assigned at Date Recorded Not on file documented as of this encounter Miscellaneous Notes Telephone Encounter - Margareth Devries RN - 03/20/2016 9:42 AM CDT Patient was seen in the ED at [facility] last pm. Spoke with patient. Still states it hurts quite a bit. Continues to use drops and Ibuprofen. Will use ice pack as well. If no improvement over the weekend, will follow up. Margareth Devries RN Telephone Encounter - Lelia Mckay MD - 03/19/2016 4:52 PM CDT He can let the FM provider know, and maybe they can change the meds, or he can be seen again if getting worse. Telephone Encounter - Марина Brock RN - 03/19/2016 3:10 PM CDT Patient calling and states was seen at today. States got drops for his ear and hurts so bad his eyes are watering. States pain so bad could barf. Wondering what to do? Advised would send message but provider did not see ear. Please advise. Call him back at [phone]. Марина Brock RN documented in this encounter Plan of Treatment Not on filedocumented as of this encounter Visit Diagnoses Not on filedocumented in this encounter Additional Health Concerns Assessment Noted Time PHQ-9 Depression Total Score: 5 03/20/2016 7:18 AM CDT documented as of this encounter Care Teams Instrument Specialist Relationship Specialty Start Date End Date Carlos Chapman PCP - General Family Practice 02/06/14 04/29/19 MD Saw Aida Hdz, Clinic Wreath Inspector Document Control Clerk - 12/12/15 01/21/17 [facility] Clinical documented as of this encounter
--- OUTSIDE RECORDS SUMMARY | 2022-03-31 16:55 | XMS_ITS | Encounter Summary ---
:1985 Author Organization [place] Address [address] [place], [place] [address] [address] Care Team Providers Name Role Phone Carlos Chapman MD Primary Care Provider [phone] Aida Hdz [facility] Unavailable Reason for Visit Reason Comments Other Encounter Details Date Type Department Care Team Description 03/16/2016 Documentation Only [facility] Leonie Hilliard [address] [facility] [address] [place] [phone] Social History Tobacco Use Types Packs/Day Years Used Date Smoking Tobacco: Never Smokeless Tobacco: Never Alcohol Use Standard Drinks/Week Comments Yes 0 (1 standard drink = 0.6 oz pure alcoho l) couple drinks per month Sex Assigned at Date Recorded Not on file documented as of this encounter Plan of Treatment Not on filedocumented as of this encounter Visit Diagnoses Diagnosis Advanced directives, counseling/discussi on - Primary Other specified counseling documented in this encounter Care Teams Printing Film Stripper Relationship Specialty Start Date End Date Carlos Chapman PCP - General Family Practice 02/06/14 04/29/19 MD Saw Aida Hdz, Clinic Public Relations Director Cellar Worker - 12/12/15 01/21/17 [facility] Clinical documented as of this encounter
--- OUTSIDE RECORDS SUMMARY | 2022-03-31 16:55 | XMS_ITS | Encounter Summary ---
:1985 Author Organization [place] Address [facility] [place] [address] Care Team Providers Name Role Phone Carlos Chapman MD Primary Care Provider Aida Hdz [facility] Unavailable Encounter Details Date Type Department Care Team Description 06/04/2016 Orders Only [facility] CAR DIOVASCULAR SCREENING; [facility] LDL GOAL LESS THAN [address] [facility], [address] [place] [address] Social History Tobacco Use Types Packs/Day [...] Name Priority Date/Time Associated Diagnosis Comme nts LIPID REFLEX TO Routine 06/04/2016 9:05 AM CARDIOVASCULAR Resu lts for this DIRECT LDL PANEL DECORATIVE ENGRAVER APPRENTICE SCREENING; LDL GOAL proc edure are in LESS THAN 130 the results section. documented in this encounter Results (ABNORMAL) Lipid panel reflex to direct LDL (06/04/2016 9:05 AM DECORATIVE ENGRAVER APPRENTICE) athologist Signature Cholesterol 234 (H) <200 mg/dL [facility] Comment: Desirable: <200 mg/dl Triglycerides 174 (H) <150 mg/dL [facility] Comment: Borderline high: ??150-199 mg/dl High: ? 200-499 mg/dl Very high: ? >499 mg/dl HDL Cholesterol 41 >39 mg/dL [facility] LDL Cholesterol Calculated 158 (H) <100 mg/dL [facility] Comment: Above desirable: ??100-129 mg/dl Borderline High: ??130-159 mg/dL High: ? 160-189 mg/dL Very high: ? >189 mg/dl Non HDL Cholesterol 193 (H) <130 mg/dL [facility] Comment: Above Desirable: ??130-159 mg/dl Borderline high: ??160-189 mg/dl High: ? 190-219 mg/dl Very high: ? >219 mg/dl Specimen Anatomical Collection Method Collection Time Receive d Time (Source) Location / / Volume Laterality Blood specimen 06/04/2016 9:05 AM 017 9:06 (specimen) DECORATIVE ENGRAVER APPRENTICE AM DECORATIVE ENGRAVER APPRENTICE Carlos Chapman MD LAB - BLOOD ORDERABLES Performing Organization Address City/State/ZIP Code Phon e Number [facility] [address] [place] [address] documented in this encounter Visit Diagnoses Diagnosis CARDIOVASCULAR SCREENING; LDL GOAL LESS THAN 130 documented in this encounter Additional Health Concerns Assessment Noted Time PHQ-9 Depression Total Score: 5 03/20/2016 7:18 AM CDT documented as of this encounter Care Teams Guitar Maker Hand Relationship Specialty Start Date End Date Carlos Chapman PCP - General Family Practice 02/06/14 04/29/19 MD Saw Aida Hdz, Clinic Lawyer Probate Paint Maker - 12/12/15 01/21/17 [facility] Clinical documented as of this encounter
--- OUTSIDE RECORDS SUMMARY | 2022-03-31 16:55 | XMS_ITS | Encounter Summary ---
:1985 Author Organization [place] Address [address] [facility] [place] [address] Care Team Providers Name Role Phone Carlos Chapman MD Primary Care Provider [phone] Aida Hdz Unavailable Carlos Chapman MD Unavailable Carlos Chapman MD Unavailable Reason for Visit Reason Onset Date Comments Nurse Advice Line 08/14/2016 labs Encounter Details Date Type Department Care Team Description 08/14/[address] [facility] Carlos Chapman Nurse Adv ice Line Clinic Anjel Spring MD (labs) [address] [place] [address], [address] [place] [address] [address] [place] [address] [place], [place] [phone] (Wo rk) [address] [phone] Social History Tobacco Use Types Packs/Day Years Used Date Smoking Tobacco: Never Smokeless Tobacco: Never Alcohol Use Standard Drinks/Week Comments Yes 0 (1 standard drink = 0.6 oz pure alcoho l) couple drinks per month Sex Assigned at Date Recorded Not on file documented as of this encounter Miscellaneous Notes Telephone Encounter - Zuleika Escalera RN - 08/17/2016 3:28 PM CDT Called and spoke to pt, concerned that lab employee stated he didn't show up for lab when he did, not concerned that he has to have labs redrawn Also requests medications be sent to [facility], not mail order cholecalciferol (VITAMIN D3) 20718 UNITS capsule 50 capsule 0 06/03/2016 No Sig: Take 1 capsule (50,000 Units) by mouth once a week fluticasone (FLONASE) 50 MCG/ACT spray 1 Bottle 11 06/03/2016 No Sig: [place] 1-2 sprays into both nostrils daily Last Written Prescription Date: 06.03.16 Last Fill Quantity: 50/1 bottle, # refills: 0 Last Office Visit with [facility], [facility] or [facility] prescribing provider: 3.7.17 lisinopril (PRINIVIL/ZESTRIL) 20 MG tablet 90 tablet 1 06/03/2016 No Sig: Take 1 tablet (20 mg) by mouth daily Class: E-Prescribe Last Written Prescription Date: 06.03.16 Last Fill Quantity: 90, # refills: 1 Last Office Visit with [facility] or [facility] prescribing provider: 3.7.17 Potassium Date Value Ref Range Status 06/22/2016 3.8 3.4 - 5.3 mmol/L Final Creatinine Date Value Ref Range Status 06/22/2016 0.86 0.66 - 1.25 mg/dL Final BP Readings from Last 3 Encounters: 08/04/16 (!) 136/98 06/22/16 135/79 06/03/16 136/88 Rx's ordered to new pharmacy Zuleika Escalera RN, BS Clinical Nurse Triage. Telephone Encounter - Alka Zhang RN - 08/17/2016 3:05 PM CDT Images from the original note were not included. Hi Susan, it looks like his orders are not completed. I am going to have to look into this. But He will need to come back and have them redone. Can you please call him to do this? Thanks Camille Zhang RN Patient Care Clinical Trial Data Manager [facility] [phone] Telephone Encounter - Zuleika Escalera RN - 08/14/2016 11:46 AM CDT Pt calling, c/o that when he saw PCP on 08-04-16 he had lab drawn and EKG done, lab results not shown in system, will forward concerns to mngt He is willing to have labs redrawn, but concerned that albs were entered into someone else's chart CB# [phone] OK to Zuleika Escalera RN, BS Clinical Nurse Triage. documented in this encounter Plan of Treatment Not on filedocumented as of this encounter Visit Diagnoses Diagnosis Vitamin D deficiency Unspecified vitamin D deficiency Seasonal allergic rhinitis, unspecified allergic rhinitis trigger Benign essential hypertension Essential hypertension, benign documented in this encounter Additional Health Concerns Assessment Noted Time PHQ-9 Depression Total Score: 5 03/20/2016 7:18 AM CDT documented as of this encounter Care Teams Upper Shaper Relationship Specialty Start Date End Date Carlos Chapman PCP - General Family Practice 02/06/14 04/29/19 MD Saw Carlos Chapman PCP - Assigned PCP 06/28/16 08/02/[place] [id number] [address] [id number] Aida Hdz, Clinic Manipulative Therapy Specialist Dry Clipper Tender - 12/12/15 01/21/17 [facility] Clinical Carlos Chapman Assigned PCP 06/28/16 02/24/20 [place] [id number] [address] [id number] documented as of this encounter
--- OUTSIDE RECORDS SUMMARY | 2022-03-31 16:55 | XMS_ITS | Encounter Summary ---
:1985 Author Organization [place] Address [address] [facility] [place] [address] Care Team Providers Name Role Phone Carlos Chapman MD Primary Care Provider [phone] Aida Hdz [facility] Unavailable Reason for Visit Reason Comments Ear Problem x 1 month, bilat ear pain mo re in the LT, states seen ENT last week and was given ear drops states n ot effective and is requesting antibiotics. Encounter Details Date Type Department Care Team Description 04/18/2016 Office Visit [place] Mihai Sun, Other acu te Urgent Care PA-C nonsuppurative otitis [address] [facility] media of left ear ThereseBRUCE calabrese (Primary Dx) [id number] [phone] [place], [place] [address] (Wo rk) Social History Tobacco Use Types Packs/Day Years Used Date Smoking Tobacco: Never Smokeless Tobacco: Never Alcohol Use Standard Drinks/Week Comments Yes 0 (1 standard drink = 0.6 oz pure alcoho l) couple drinks per month Sex Assigned at Date Recorded Not on file documented as of this encounter Last Filed Vital Signs Vital Sign Reading Time Taken Comments Blood Pressure 132/89 04/18/2016 3:39 PM SAXOPHONE ASSEMBLER Pulse 89 04/18/2016 3:39 PM SAXOPHONE ASSEMBLER Temperature 36.8 ??C (98.2 ??F) 04/18/2016 3:39 PM SAXOPHONE ASSEMBLER Respiratory Rate - - Oxygen Saturation - - Inhaled Oxygen Concentration - - Weight 94.2 kg (207 lb 11.2 oz) 04/18/2016 3:39 PM SAXOPHONE ASSEMBLER Height - - Body Mass Index 32.53 03/26/2016 1:50 PM CDT documented in this encounter Progress Notes Mihai Johns PA-C - 04/18/2016 3:47 PM CST SUBJECTIVE: Ronn Hinkle is a 30 year old male who presents with left ear fullness and pressure for 2 day(s). Diagnosed with left ear infection late last month and given augmentin 2x daily for 10 days. Finished 6 days ago and then started to have symptoms 2 days later. Seen by ENT 2 days ago and given ofloxacin4 drops 2x daily and dexamethasone 3 drops 2x daily all to left ear. He will get nocturnal dischargethat he says is yellow. Severity: mild Timing:gradual onset and still present Additional symptoms include none. History of recurrent otitis: no Past Medical History Diagnosis Date ??? Testicular cancer (H) 1998 ??? Palpitations ??? Hypertension ??? Neuromuscular disorder (H) Current Outpatient Prescriptions Medication Sig Dispense Refill ??? cholecalciferol (VITAMIN D3) 30844 UNITS capsule Take 1 capsule (50,000 Units) by mouth once a week 12 capsule 0 ??? fluticasone (FLONASE) 50 MCG/ACT nasal spray [place] 1-2 sprays into both nostrils daily 1 [...] ??? fluticasone (FLONASE) 50 MCG/ACT nasal spray [place] 1-2 sprays into both nostrils daily 1 [...] week Comment: couple drinks per month ROS: ENT/MOUTH: POSITIVE for ear pain left OBJECTIVE: BP 132/89 mmHg Pulse 89 Temp(Src) 98.2 ??F (36.8 ??C) (Oral) Wt 207 lb 11.2 oz (94.212 kg) EXAM: The right TM is normal: no effusions, no erythema, and normal landmarks The right auditory canal is normal and without drainage, edema or erythema The left TM is perforation noted but healing/filling. No britton The left auditory canal is normal and [...] noted SKIN: no suspicious lesions or rashes ASSESSMENT: 1. Other acute nonsuppurative otitis media of left ear - ibuprofen (ADVIL,MOTRIN) 600 MG tablet; Take 1 tablet (600 mg) by mouth every 6 hours as needed for moderate pain Dispense: 30 tablet; Refill: 1 PLAN: if pressure continues he will call ENT on Wednesday for a evaluation appointment next week. See orders in [employer] PHONE ASSEMBLER documented in this encounter Plan of Treatment Not on filedocumented as of this encounter Visit Diagnoses Diagnosis Other acute nonsuppurative otitis media of left ear - Primary documented in this encounter Additional Health Concerns Assessment Noted Time PHQ-9 Depression Total Score: 5 03/20/2016 7:18 AM CDT documented as of this encounter Care Teams Applications Consultant Relationship Specialty Start Date End Date Carlos Chapman PCP - General Family Practice 02/06/14 04/29/19 MD Saw Aida Hdz, Clinic Powder Bl[employer] Bus Driver - 12/12/15 01/21/17 [facility] Clinical documented as of this encounter
--- OUTSIDE RECORDS SUMMARY | 2022-03-31 16:55 | XMS_ITS | Encounter Summary ---
:1985 Author Organization [place] Address [facility] [place] [address] Care Team Providers Name Role Phone Carlos Chapman MD Primary Care Provider [phone] Aida Hdz [facility] Unavailable Reason for Visit Reason Comments Mouth Problem Encounter Details Date Type Department Care Team Description 06/22/2016 Emergency [facility] Mariposa Alvarez MD Facial pain, acute [facility] Emergency Dep t [facility] [address] [place], [place] [address] [facility] [address] [place] [address] [phone] (Wo rk) Social History Tobacco Use Types Packs/Day Years Used Date Smoking Tobacco: Never Smokeless Tobacco: Never Alcohol Use Standard Drinks/Week Comments Yes 0 (1 standard drink = 0.6 oz pure alcoho l) couple drinks per month Sex Assigned at Date Recorded Not on file documented as of this encounter Last Filed Vital Signs Vital Sign Reading Time Taken Comments Blood Pressure 135/79 06/22/2016 5:16 AM CATERING SERVICE MANAGER Pulse 82 06/22/2016 1:37 AM CATERING SERVICE MANAGER Temperature 37.1 ??C (98.8 ??F) 06/22/2016 1:37 AM CATERING SERVICE MANAGER Respiratory Rate 18 06/22/2016 1:37 AM CATERING SERVICE MANAGER Oxygen Saturation 99% 06/22/2016 5:16 AM CATERING SERVICE MANAGER Inhaled Oxygen Concentration - - Weight - - Height - - Body Mass Index - - documented in this encounter Discharge Instructions Discharge Mariposa Carlson MD - 06/22/2016 5:00 AM CST Motrin and tylenol for pain as needed RING SERVICE MANAGER documented in this encounter Medications at Time [...] nonsuppurative needed otitis media of left ear ibuprofen Take 3 tablets 100 tablet 3 [...] that the patient reports taking medical cannabis.) cholecalciferol Take 1 capsule 50 capsule 0 06/03/201608/17 (VITAMIN D3) 39242 (50,000 Units) by UNITS mouth once a week capsuleIndications: Vitamin D deficiency fluticasone (FLONASE) [place] 1-2 sprays 1 Bottle 3 01/03/20 16 08/17/2016 50 MCG/ACT nasal into both sprayIndications: nostrils daily Seasonal allergic rhinitis fluticasone (FLONASE) [place] 1-2 sprays 1 Bottle 11 06/03/19 17 02/05/2017 50 MCG/ACT into both sprayIndications: nostrils daily Acute suppurative otitis media of left ear with spontaneous rupture of tympanic membrane, recurrence not specified ibuprofen Take 1 tablet 30 tablet 1 06/12/2016 10/28/2016 (ADVIL/MOTRIN) 600 MG (600 mg) by mouth tabletIndications: every 6 hours as Other acute needed for nonsuppurative otitis moderate pain media of left ear lisinopril Take 1 tablet (20 90 tablet 1 06/03/2016 017 (PRINIVIL/ZESTRIL) 20 mg) by mouth MG tabletIndications: daily Benign essential hypertension documented as of this encounter ED Notes Mariposa Alvarez MD - 06/22/2016 3:35 AM CST History Chief Complaint: Mouth problem HPI Ronn Hinkle is a 30 year old male, with a history of hypertension, testicular cancer, and neuromuscular disorder, who presents with mouth problem. The patient reports about 2 weeks ago receiving a skin graft on his ear drum after having an ear infection. Tonight he notes a sore throat, pain at the top of his mouth and upper lip, and drainage in his throat, prompting him to come here for evaluation. He denies a fever, ear drainage, having as cough, myalgias, or exposure to illness recently. He denies speech difficulty, voice change, or trouble with swallowing or opening his mouth. Allergies: No known drug allergies Medications: Ibuprofen (advil/motrin) 600 mg tablet Cetirizine hcl 10 mg caps Cholecalciferol (vitamin d3) 45396 units capsule Fluticasone (flonase) 50 mcg/act spray Lisinopril (prinivil/zestril) 20 mg tablet Medical cannabis oral liquid (patient's own supply. Not a prescription) Ibuprofen (advil,motrin) 200 mg tablet Fluticasone (flonase) 50 mcg/act nasal spray Acetaminophen (tylenol) 325 mg tablet Alum & mag hydroxide-simethicone (mylanta/maalox) 200-200-20 mg/5ml susp Medical cannabis oral liquid (patient's own supply. Not a prescription) Past Medical History: Testicular cancer Palpitations Hypertension Neuromuscular disorder Past Surgical History: Orchiectomy inguinal Family History: Obesity MS - maternal uncle Lymphoma - maternal uncle CAD - maternal uncle SC - maternal grandfather Stomach cancer - paternal grandfather Social History: Smoking status: never Alcohol use: yes - couple drinks/month Marital Status: Single Review of Systems Constitutional: Negative for fever. HENT: Positive for postnasal drip and sore throat. Negative for ear discharge. Respiratory: Negative for cough. Musculoskeletal: Negative for myalgias. All other systems reviewed and are negative. Physical Exam Patient Vitals for the past 24 hrs: BP Temp Temp src Pulse Heart Rate Resp SpO2 06/22/16 0516 135/79 mmHg - - - - - 99 % 06/22/16 0137 (!) 165/101 mmHg 98.8 ??F (37.1 ??C) Temporal 82 82 18 99 % Physical Exam Constitutional: He appears well-developed and well-nourished. HENT: Right Ear: External ear normal. Mouth/Throat: Oropharynx is clear and moist. No oropharyngeal exudate. Left EAC with debris, cannot visualize TM. Mastoid incision on left, healing well without signs of infection. No trismus. No voice change. No drooling. Mild TTP B TMJ Eyes: Conjunctivae and EOM are normal. Pupils are equal, round, and reactive to light. No scleral icterus. Neck: Normal range of motion. Neck supple. Cardiovascular: Normal rate, regular rhythm, normal heart sounds and intact distal pulses. Exam reveals no gallop and no friction rub. No murmur heard. Pulmonary/Chest: Effort normal and breath sounds normal. No respiratory distress. He has no wheezes.He has no rales. Abdominal: Soft. Bowel sounds are normal. He exhibits no distension and no mass. There is no tenderness. Lymphadenopathy: He has no cervical adenopathy. Neurological: He is alert. Skin: Skin is warm and dry. No rash noted. Psychiatric: He has a normal mood and affect. Emergency Department Course Imaging: Radiographic findings were communicated with the patient who voiced understanding of the findings. CT maxillofacial w contrast IMPRESSION: 1. No evidence of abscess. 2. Fluid in the left middle ear. 3. Fluid in a few left mastoid air cells. As read by Radiology. Laboratory: CBC: WNL (WBC 10.4, HGB 15.8, PLT 232) BMP: Glucose 107 (H), o/w WNL (Creatinine 0.86) Rapid strep screen: negative Beta strep group A culture: pending Interventions: 0433 - NS 0.08L IV Bolus Emergency Department Course: Past medical records, nursing notes, and vitals reviewed. 0335: I performed an exam of the patient and obtained history, as documented above. Patient is swabbed. IV inserted and blood drawn. The patient was sent for a CT scan while in the emergency department, findings above. 0500: I rechecked the patient. Explained findings to patient. Still has pressure in head and soreness in jaw. 0501: I rechecked the patient Findings and plan explained to the Patient. Patient discharged home with instructions regarding supportive care, medications, and reasons to return. The importance of close follow-up was reviewed. Impression & Plan Medical Decision Making: Ronn Hinkle is a 30 year old male who is status post-left mastoidectomy tempanostomy and left TM perforation repair, who presents with sudden onset of ear pain, jaw pain, feeling like there is a drainage going down the throat and now pain that is radiating on both sides of the jaw and possibly having some pressure in his head. His incision site looks well. There is no gross purulent drainage coming from the left ear. Right ear is normal. He is oropharynx exam is otherwise normal. There was no neck or chest pain to be concerned that that is coronary disease. He did mention on my exam that the symptoms are improved and that he now has a mild headache. Due to recent surgery, I did do a CT to rule o ut infection in the facial area and that was negative. Strep was swabbed at triage and that was negative as well. He is now sleeping. He felt maybe there was some fluid in the middle ear and the mastoid itself. It is possible there was fluid there and that it drained, but patient is asymptomatic now. I asked him to follow up with Dr. Spears, his ENT, and then to return if he has any worsening symptoms. Diagnosis: ICD-10-CM 1. Facial pain, acute R51 Disposition: discharged to home Discharge Medications: Discharge Medication List as of 06/22/2016 5:10 AM Al Garcia 06/22/2016 [facility] EMERGENCY DEPARTMENT I, Al Garcia, am serving as a scribe at 3:35 AM on 06/22/2016 to document services personally performed by Mariposa Alvarez MD based on my observations and the provider's statements to me. Mariposa Alvarez MD 06/22/16 0613 RING SERVICE MANAGER Liban Keane RN - 06/22/2016 3:29 AM CST Pt states biggest concern is possible ear/sinus infection possibly applying pressure to graft in earand compromising it RING SERVICE MANAGER Aida Ramírez RN - 06/22/2016 1:39 AM CST Pt has skin graft to left ear on 06/03 now having sore throat, numbness and pain to mouth and face, very poor historian difficult to get straight answers out of. When asked to clarify about numbness or pain pt will only reply Both. RING SERVICE MANAGER documented in this encounter Plan of Treatment Not on filedocumented as of this encounter Procedures Procedure Name Priority Date/Time Associated Comments Diagnosis CT FACIAL BONES WITH STAT 06/22/2016 4:46 AM R esults for this CONTRAST CATERING SERVICE MANAGER procedure are i n the results section. CBC WITH PLATELETS & STAT 06/22/2016 3:54 AM R esults for this DIFFERENTIAL CATERING SERVICE MANAGER procedure are i n the results section. BASIC METABOLIC PANEL STAT 06/22/2016 3:54 AM Results for this CATERING SERVICE MANAGER procedure are i n the results section. RAPID STREP SCREEN STAT 06/22/2016 1:38 AM Res ults for this THROAT SWAB CATERING SERVICE MANAGER procedure are i n the results section. BETA HEMOLYTIC STREP Routine 06/22/2016 1:38 AM Facial pain, a cute Results for this GROUP A CULTURE CATERING SERVICE MANAGER procedure ar e in the results section. documented in this encounter Results CT Maxillofacial w Contrast (06/22/2016 4:46 AM CATERING SERVICE MANAGER) Anatomical Region Laterality Modality Head, SUBRAD CT NEURO, UMP CT NEURO Comp uted Tomography Specimen (Source) Anatomical Location Collection Method / Collectio n Time Received Time / Laterality Volume Impressions 06/22/2016 6:16 AM CATERING SERVICE MANAGER IMPRESSION: 1. No evidence of abscess. 2. Fluid in the left middle ear. 3. Fluid in a few left mastoid air cells . NAUN THAPA MD Narrative 06/22/2016 6:[address] MAXILLOFACIAL WITH CONTRAST ??06/22/2016 4:46 AM ?? HISTORY: Recent mastoid surgery. Sore th roat. Pain at top of mouth. Drainage in his throat. TECHNIQUE: Multiplanar imaging of the fa ce with intravenous contrast. Radiation dose for this scan was reduced using automated exposure control, adjustment of the mA and/or kV according to patient size, or iterative reconstruction technique. 100m L Isovue-370 COMPARISON: ??None. FINDINGS: There is small amount of fluid in the left middle ear. Fluid within a few left mastoid air cells. No focal inflammation or focal fluid collection to suggest abscess. The pharyngeal tissues appear normal. No lymph node enlargement. The p aranasal sinuses are clear. Procedure Note Naun Thapa MD - 06/22/2016Form atting of this note might be different from the original. CT MAXILLOFACIAL WITH CONTRAST 06/22/2016 4:46 AM HISTORY: Recent mastoid surgery. Sore th roat. Pain at top of mouth. Drainage in his throat. TECHNIQUE: Multiplanar imaging of the fa ce with intravenous contrast. Radiation dose for this scan was reduced using automated exposure control, adjustment of the mA and/or kV according to patient size, or iterative reconstruction technique. 100m L Isovue-370 COMPARISON: None. FINDINGS: There is small amount of fluid in the left middle ear. Fluid within a few left mastoid air cells. No focal inflammation or focal fluid collection to suggest abscess. The pharyngeal tissues appear normal. No lymph node enlargement. The p aranasal sinuses are clear. IMPRESSION: 1. No evidence of abscess. 2. Fluid in the left middle ear. 3. Fluid in a few left mastoid air cells . NAUN THAPA MD Mariposa Alvarez MD IMG CT ORDERABLES (ABNORMAL) Basic metabolic panel (06/22/2016 3:54 AM CATERING SERVICE MANAGER) [facility] Method Time Signature Sodium 139 133 - 144 [place] mmol/L [facility] Potassium 3.8 3.4 - 5.3 [place] mmol/L [facility] Chloride 107 94 - 109 [place] mmol/L [facility] Carbon Dioxide 26 20 - 32 [place] mmol/L [facility] Anion Gap 6 3 - 14 [place] mmol/L [facility] Glucose 107 (H) 70 - 99 [place] mg/dL [facility] Urea Nitrogen 11 7 - 30 [place] mg/dL [facility] Creatinine 0.86 0.66 - [place] 1.25 [facility] mg/dL HOSPITAL GFR Estimate >90 >60 [place] Non GFR Calc mL/min/1. [facility] 7m2 HOSPITAL GFR Estimate >90 >60 [place] If Black GFR Calc mL/min/1. [facility] 7m2 [facility] Calcium 8.7 8.5 - [place] 10.1 [facility] mg/dL HOSPITAL Specimen Anatomical Collection Method Collection Time Receive d Time (Source) Location / / Volume Laterality Blood specimen 06/22/2016 3:54 AM 017 4:00 (specimen) CATERING SERVICE MANAGER AM CATERING SERVICE MANAGER Mariposa Alvarez MD LAB - BLOOD ORDERABLES Performing Organization Address City/State/ZIP Code Phon e Number [place] [address] [address] [facility] [address] [phone] CBC with platelets differential (06/22/2016 3:54 AM CATERING SERVICE MANAGER) [facility] gist Method Time Signature WBC 10.4 4.0 - [place] 11.0 [facility] 10e9/L [facility] RBC Count 5.13 4.4 - 5.9 [place] 10e12/L [facility] Hemoglobin 15.8 13.3 - [place] 17.7 g/dL [facility] Hematocrit 45.6 40.0 - [place] 53.0 % [facility] MCV 89 78 - 100 [facility] MCH 30.8 26.5 - [place] 33.0 pg [facility] MCHC 34.6 31.5 - [place] 36.5 g/dL [facility] RDW 12.7 10.0 - [place] 15.0 % [facility] Platelet Count 232 150 - 450 [place] 10e9/L [facility] Diff Method Automated [facility] % Neutrophils 67.7 % [facility] % Lymphocytes 18.5 % [facility] % Monocytes 9.6 % [facility] % Eosinophils 3.2 % [facility] % Basophils 0.5 % [facility] % Immature 0.5 % [place] Granulocytes [facility] Nucleated RBCs 0 0 /100 [facility] Absolute 7.0 1.6 - 8.3 [place] Neutrophil 10e9/L [facility] Absolute 1.9 0.8 - 5.3 [place] Lymphocytes 10e9/L [facility] Absolute 1.0 0.0 - 1.3 [place] Monocytes 10e9/L [facility] Absolute 0.3 0.0 - 0.7 [place] Eosinophils 10e9/L [facility] Absolute 0.1 0.0 - 0.2 [place] Basophils 10e9/L [facility] Abs Immature 0.1 0 - 0.4 [place] Granulocytes 10e9/L [facility] Absolute 0.0 [place] Nucleated RBC [facility] Specimen Anatomical Collection Method Collection Time Receive d Time (Source) Location / / Volume Laterality Blood specimen 06/22/2016 3:54 AM 017 4:00 (specimen) CATERING SERVICE MANAGER AM CATERING SERVICE MANAGER Mariposa Alvarez MD LAB - BLOOD ORDERABLES Performing Organization Address City/[facility]/ZIP Code Phon e Number [place] [address] [address] [address] [place] [address] [address] [id number], [place] [phone] Beta strep group A culture (06/22/2016 1:38 AM CATERING SERVICE MANAGER) Component Value Ref Test Analysis Performed At [facility] Range Method Time Signature Specimen Throat [facility] Special Specimen [facility]white cap[facility] B[facility] Culture Micro No Beta INFECTIOUS Streptococcus DISEASE isolated DIAGNOSTIC LABORATORY Micro Report FINAL 06/24/2016 INFECTIOUS Status DISEASE DIAGNOSTIC LABORATORY Specimen Anatomical Collection Method Collection Time Receive d Time (Source) Location / / Volume Laterality 06/22/2016 1:38 AM 7 2:02 CATERING SERVICE MANAGER AM CATERING SERVICE MANAGER Mariposa Alvarez MD LAB - MICRO GENERAL ORDERABL ES Performing Organization Address City/State/ZIP Code Phon e Number INFECTIOUS DISEASES [address] [place] [address] DIAGNOSTIC LABORATORY, [facility] [address] [place], [place] [address], [place] [phone] [address], [facility] INFECTIOUS DISEASE [address] [place], [place] [address] DIAGNOSTIC LABORATORY Rapid strep screen (06/22/2016 1:38 AM CATERING SERVICE MANAGER) Component Value Ref Test Analysis [facility]formed At [facility] Range Method Time Signature Specimen Throat [facility] Rapid Strep A NEGATIVE: No Group A strepto coccal antigen detected by immunoassay, await [place] Screen culture report. [facility] Micro Report FINAL 06/22/2016 [place] Status [facility] Specimen Anatomical Collection Method Collection Time Receive d Time (Source) Location / / Volume Laterality Specimen from 06/22/2016 1:38 AM 06/22/19 1:48 throat CATERING SERVICE MANAGER AM CATERING SERVICE MANAGER (specimen) Mariposa Alvarez MD LAB - MICRO GENERAL ORDERABL ES Performing Organization Address City/State/ZIP Code Phon e Number [place] [address] [address] [address] [facility] [address] [place], [place] [address] [place] [address] documented in this encounter Visit Diagnoses Diagnosis Facial pain, acute Headache documented in this encounter Administered Medications Inactive Administered Medications - up to 3 most recent administrations Medication Order MAR Action Action Date Dose Rate Site 0.9% sodium chloride BOLUS New Bag 06/22/2016 4:33 AM CATERING SERVICE MANAGER 80 mLs Intravenous, 1,000 mL, ONCE, On Wed06/22/16 at 0428, For 1 dose iopamidol (ISOVUE-370) solution 500 mL Given 06/22/2016 4:33 AM CATERING SERVICE MANAGER 100 mLs 500 mL, Intravenous, ONCE, On Wed06/22/16 at 0428, For 1 dose documented in this encounter Active and Recently Administered Medications Times are shown in CATERING SERVICE MANAGER. Scheduled Medication Order 06/20/2016 06/21/2016 06/22/2016 0.9% sodium chloride BOLUS (COMPLETED) 0433 (New Bag - Provider: Jaz Oconnell - Comment: bulk)0437 (Stopped - Provider: Jaz Oconnell) Intravenous, 1,000 mL, ONCE, On Wed06/22/16 at 0428, For 1 dose iopamidol (ISOVUE-370) solution 500 mL (COMPLETED) 0433 (Given - Provider: Jaz Oconnell) 500 mL, Intravenous, ONCE, On Wed06/22/16 at 0428, For 1 dose documented in this encounter Additional Health Concerns Assessment Noted Time PHQ-9 Depression Total Score: 5 03/20/2016 7:18 AM CDT documented as of this encounter Care Teams Rib Sawyer Relationship Specialty Start Date End Date Carlos Chapman PCP - General Family Practice 02/06/14 04/29/19 MD Saw Aida Hdz, Clinic Golf Superintendent Graining Press Operator - 12/12/15 01/21/17 [facility] Clinical documented as of this encounter
--- OUTSIDE RECORDS SUMMARY | 2022-03-31 16:55 | XMS_ITS | Encounter Summary ---
:1985 Author Organization [place] Address [address] [place] [address] Care Team Providers Name Role Phone Carlos Chapman MD Primary Care Provider Aida Hdz [facility] Unavailable Reason for Visit Reason Onset Date Comments Refill Request 06/12/2016 left ear pain r/t ty mpanic rupture Medication Question 06/12/2016 Dizziness r/t oitis media; s/p left ear tympanic rupture Encounter Details Date Type Department Care Team Description 06/12/2016 Refill [facility] Carlos Chapman Refill Re quest (left Clinic [place] MD Saw ear pain r/t tympanic [address] [facility], [facility] [address] rupture); Medication [address] [place] [address] Question (Dizziness r/t [place], [place] [phone] (Wo rk) oitis media; s/p left [id number] ear tympanic rupture) [phone] Social History Tobacco Use Types Packs/Day Years Used Date Smoking Tobacco: Never Smokeless Tobacco: Never Alcohol Use Standard Drinks/Week Comments Yes 0 (1 standard drink = 0.6 oz pure alcoho l) couple drinks per month Sex Assigned at Date Recorded Not on file documented as of this encounter Miscellaneous Notes Telephone Encounter - Cortney Ward RN - 06/12/2016 12:47 PM PIPE MACHINE OPERATOR PCP please edit and approve. Pt. States he feels drainage in left ear canal after Wednesday tympanic membrane surgery. Also notices dizziness. Dr. Spears notified of this no further recommendation advised until seen in clinic next Wednesday. Cortney Ward RN, BSN, PHN MACHINE OPERATOR Telephone Encounter - Cortney Ward RN - 06/12/2016 12:16 PM PIPE MACHINE OPERATOR Ibuprofen Last Written Prescription Date: 04/18/2016 Last Quantity: 30, # refills: 1 Last Office Visit with [facility], P or [facility] prescribing provider: 03/26/2016 CREATININE Date Value Ref Range Status 03/19/2016 1.09 0.66 - 1.25 mg/dL Final AST 27 03/19/2016 ALT 60 03/19/2016 BP Readings from Last 3 Encounters: 06/03/16 136/88 04/18/16 132/89 03/26/16 122/84 Prescription approved per [facility] Refill Protocol. Cortney Ward RN, BSN, PHN MACHINE OPERATOR documented in this encounter Plan of Treatment Not on filedocumented as of this encounter Visit Diagnoses Diagnosis Other acute nonsuppurative otitis media of left ear - Primary documented in this encounter Additional Health Concerns Assessment Noted Time PHQ-9 Depression Total Score: 5 03/20/2016 7:18 AM CDT documented as of this encounter Care Teams Economics Department Chair Relationship Specialty Start Date End Date Carlos Chapman PCP - General Family Practice 02/06/14 04/29/19 MD Saw Aida Hdz, Clinic Cnc Machinist 2Nd Shift Filling Machine Operator - 12/12/15 01/21/17 [facility] Clinical documented as of this encounter
--- OUTSIDE RECORDS SUMMARY | 2022-03-31 16:55 | XMS_ITS | Encounter Summary ---
:1985 Author Organization [place] Address [facility] [place] [address] Care Team Providers Name Role Phone Carlos Champan MD Primary Care Provider [phone] Aida Hdz LGSW Unavailable Carlos Chapman MD Unavailable Carlos Chapman MD Unavailable Encounter Details Date Type Department Care Team Description 08/18/2016 Orders Only [facility] Sta tus post chemotherapy; [facility] Poor concentration; [address], Palpi tations; [address] CARDIOVASCULAR SCREENING; LD L GOAL LESS THAN 160; [place], [place] Vitamin D def iciency; [address] Arsenic suspected exposure [phone] Social History Tobacco Use Types Packs/Day Years [...] Name Priority Date/Time Associated Diagnosis Comme nts CBC WITH PLATELETS & Routine 08/18/2016 7:51 Palpitations Resu lts for this DIFFERENTIAL AM CDT procedure are i n the results section. VITAMIN D DEFICIENCY Routine 08/18/2016 7:51 Vitamin D deficie ncy Results for this SCREENING AM CDT procedure are i n the results section. LIPID REFLEX TO Routine 08/18/2016 7:51 CARDIOVASCULAR Results for this DIRECT LDL PANEL AM CDT SCREENING; LDL GOAL proc edure are in LESS THAN 160 the results section. COMPREHENSIVE Routine 08/18/2016 7:51 Palpitations Results for this METABOLIC PANEL AM CDT procedure ar e in the results section. ARSENIC LEVEL Routine 08/18/2016 7:51 Arsenic suspected Result s for this AM CDT exposure procedure are i n the results section. documented in this encounter Results Arsenic level (08/18/2016 7:51 AM CDT) athologist Signature Arsenic 11.3 ug/L [facility] Comment: Reference range: 0.0 to 13.0 (Note) [...] Test developed and characteristics deter mined by [facility]. See Compliance Statement B : [employer]/CS Performed by [facility], [address] [place] [id number] [email or web address], Yayo Alcantara MD, Lab. Director Specimen Anatomical Collection Method Collection Time Receive d Time (Source) Location / / Volume Laterality Blood specimen 08/18/2016 7:51 AM 017 7:52 (specimen) CDT AM CDT Carlos Chapman MD LAB - BLOOD ORDERABLES Performing Organization Address City/State/ZIP Code Phon e Number [facility] [place] [address] Vitamin D Deficiency (08/18/2016 7:51 AM CDT) athologist Signature Vitamin D 48 20 - 75 [facility] Deficiency ug/L [facility] Comment: Season, race, dietary intake, and treatm ent affect the concentration of 79-pxvowdn-Eniyeoq D. Values may decrea se during winter [...] Organization Address City/State/ZIP Code Phon e Number [facility] [address] [place], [place] [id number] [place] [address] CBC with platelets and differential (08/18/2016 7:51 AM CDT) [facility] gist Method Time Signature WBC 8.7 4.0 - [place] 11.0 [facility] 10e9/L [place] RBC Count 4.84 4.4 - 5.9 [place] 10e12/L [facility] Hemoglobin 15.0 13.3 - [facility] 17.7 g/dL [facility] Hematocrit 43.7 40.0 - [facility] 53.0 % [facility] MCV 90 78 - 100 [facility] MCH 31.0 26.5 - [facility] 33.0 pg [facility] MCHC 34.3 31.5 - [facility] 36.5 g/dL [facility] RDW 12.9 10.0 - [facility] 15.0 % [facility] Platelet Count 183 150 - 450 [place] 10e9/L [facility] Diff Method Automated [place] Method [facility] % Neutrophils 57.0 % [facility] % Lymphocytes 25.0 % [facility] % Monocytes 12.0 % [facility] % Eosinophils 5.5 % [facility] % Basophils 0.5 % [facility] Absolute 4.9 1.6 - 8.3 [place] Neutrophil 10e9/L [facility] Absolute 2.2 0.8 - 5.3 [place] Lymphocytes 10e9/L [facility] Absolute 1.0 0.0 - 1.3 [place] Monocytes 10e9/L [facility] Absolute 0.5 0.0 - 0.7 [place] Eosinophils 10e9/L [facility] Absolute 0.0 0.0 - 0.2 [facility] Basophils 10e9/L [facility] Specimen Anatomical Collection Method Collection Time Receive d Time (Source) Location / / Volume Laterality Blood specimen 08/18/2016 7:51 AM 017 7:52 (specimen) CDT AM CDT Carlos Chapman MD LAB - BLOOD ORDERABLES Performing Organization Address City/[facility]/ZIP Code Phon e Number [facility] [place] [address] (ABNORMAL) Lipid panel reflex to direct LDL (08/18/2016 7:51 AM CDT) [facility] Method Time Signature Cholesterol 198 <200 [facility] mg/dL [facility] Triglycerides 139 <150 [place] mg/dL [facility] HDL Cholesterol 34 (L) >39 mg/dL [facility] LDL Cholesterol 136 (H) <100 [place] Calculated mg/dL [facility] Comment: Above desirable: ??100-129 mg/dl Borderline High: ??130-159 mg/dL High: ? 160-189 mg/dL Very high: ? >189 mg/dl Non HDL Cholesterol 164 (H) <130 mg/dL [facility] Comment: Above Desirable: ??130-159 mg/dl Borderline high: ??160-189 mg/dl High: ? 190-219 mg/dl Very high: ? >219 mg/dl Specimen Anatomical Collection Method Collection Time Receive d Time (Source) Location / / Volume Laterality Blood specimen 08/18/2016 7:51 AM 017 7:52 (specimen) CDT AM CDT Carlos Chapman MD LAB - BLOOD ORDERABLES Performing Organization Address City/State/ZIP Code Phon e Number [facility] [address] [place] [address] (ABNORMAL) Comprehensive metabolic panel (08/18/2016 7:51 AM CDT) [facility] Method Time Signature Sodium 143 133 - 144 [place] mmol/L [facility] Potassium 4.2 3.4 - 5.3 [place] mmol/L [facility] Chloride 110 (H) 94 - 109 [place] mmol/L [facility] Carbon Dioxide 24 20 - 32 [place] mmol/L [facility] Anion Gap 9 3 - 14 [place] mmol/L [facility] Glucose 96 70 - 99 [place] mg/dL [facility] Urea Nitrogen 12 7 - 30 [place] mg/dL [facility] Creatinine 0.96 0.66 - [place] 1.25 [facility] mg/dL [facility] GFR Estimate >90 >60 [place] Non GFR Calc mL/min/1. CLINICS 7m2 [facility] GFR Estimate If >90 >60 [place] Black GFR Calc mL/min/1. CLIN ICS 7m2 [facility] Calcium 8.8 8.5 - [place] 10.1 [facility] mg/dL [facility] Bilirubin Total 0.3 0.2 - 1.3 [place] mg/dL [facility] Albumin 3.9 3.4 - 5.0 [place] g/dL [facility] Protein Total 7.3 6.8 - 8.8 [place] g/dL [facility] Alkaline 95 40 - 150 [place] Phosphatase U/L [facility] ALT 63 0 - 70 [place] U/L [facility] AST 32 0 - 45 [place] U/L [facility] Specimen Anatomical Collection Method Collection Time Receive d Time (Source) Location / / Volume Laterality Blood specimen 08/18/2016 7:51 AM 017 7:52 (specimen) CDT AM CDT Carlos Chapman MD LAB - BLOOD ORDERABLES Performing Organization Address City/State/ZIP Code Phon e Number [facility] [address] [place] [address] documented in this encounter Visit Diagnoses Diagnosis Status post chemotherapy Convalescence following chemotherapy Poor concentration Attention or concentration deficit Palpitations CARDIOVASCULAR SCREENING; LDL GOAL LESS THAN 160 Vitamin D deficiency Unspecified vitamin D deficiency Arsenic suspected exposure Contact with and (suspected) exposure to arsenic documented in this encounter Additional Health Concerns Assessment Noted Time PHQ-9 Depression Total Score: 5 03/20/2016 7:18 AM CDT documented as of this encounter Care Teams Linen Controller Relationship Specialty Start Date End Date Carlos Chapman PCP - General Family Practice 02/06/14 04/29/19 MD Saw Carlos Chapman PCP - Assigned PCP 06/28/16 08/02/[place] [id number] [address] [id number] Aida Hdz, Clinic Neon Sign Maker Therapist Radiation - 12/12/15 01/21/17 [facility] Clinical Carlos Chapman Assigned PCP 06/28/16 02/24/20 [place] [id number] [address] [id number] documented as of this encounter
--- OUTSIDE RECORDS SUMMARY | 2022-03-31 16:55 | XMS_ITS | Encounter Summary ---
:1985 Author Organization [place] Address [address] [place], [place] [address]. [place] [address] Care Team Providers Name Role Phone Carlos Chapman MD Primary Care Provider Aida Hdz Unavailable Carlos Chapman MD Unavailable Carlos Chapman MD Unavailable Reason for Visit Audiology (Routine) - Closed Specialty Diagnoses / Procedures Referred By Contact Refer red To Contact Audiology Diagnoses Hearing Aid Consult. Referring Katie Valles, [facility] Procedures HEARING AID CONSULT [facility] [address] [address] Phone: Fax: Referral ID Status Reason Start Date Expiration Date Visits V isits Requested Authorized [facility] - AUD/POPE Closed 08/05/2016 05/30/2017 365 365 ([id number]) Encounter Details Date Type Department Care Team Description 08/06/2016 Office Visit Health Audiology Bejarano-Camitsch, Sensorineural hearing loss, bilateral (Primary Dx); [address] [place] [address] Arlene, AuD Tinnitus, bilateral [address] [place] [id number] Social History Tobacco Use Types Packs/Day Years Used Date Smoking Tobacco: Never Smokeless Tobacco: Never Alcohol Use Standard Drinks/Week Comments Yes 0 (1 standard drink = 0.6 oz pure alcoho l) couple drinks per month Sex Assigned at Date Recorded Not on file documented as of this encounter Progress Notes BejaranoRickyArlene Moya, Bora - 08/06/2016 1:00 PM CST AUDIOLOGY REPORT SUBJECTIVE: Ronn Hinkle is a 30 year old male was seen in the Audiology Clinic at [facility] on 08/06/16 to discuss concerns with hearing and functional communication difficulties. Ronn has been seen previously by [facility], and results revealed normal hearing sloping to a profound essentially sensorineural hearing loss bilaterally (some air-bone gaps noted in the left ear), he is followed by their ENT, Dr. Spears. He reports a history of chemotherapy which has caused his hearing loss, he also reports a recent left tympanoplasty performed by Dr. Spears. He reports constant bilateral tinnitus. Ronn notes difficulty with communication in a variety of listening situations. He reports increased difficulty understanding people in one-on-one situations and even more difficulty with more complex situations. 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 He reports that loud sounds do cause discomfort. OBJECTIVE: Patient is a hearing aid candidate. Patient would like to move forward with a hearing aid evaluationtoday. Therefore, the patient was presented with different options for amplification to slat basket maker helper machine in communication. Discussed styles, levels of technology and monaural vs. binaural fitting. Patient was very excited to discover that some hearing aids connect directly with iPhones. The hearing aids mutually chosen were: Binaural: ReSound Linx2 7 COLOR: [place] Blue BATTERY SIZE: 13 EARMOLD/TIPS: Custom acrylic ReSound sleeve mold CANAL/SOFTWARE ENGINEER DEVELOPER LENGTH: 2 MP Otoscopy revealed ears are clear of cerumen bilaterally. Bilateral earmolds were taken without incident. ASSESSMENT: Bilateral sensorineural hearing loss Reviewed purchase information and warranty information with patient. The 45 day trial period was explained to patient. The patient was given a copy of the [facility] consumer brochure on purchasing hearing instruments. Patient risk factors have been provided to the patient in writing prior to the sale of the hearing aid per FDA regulation. The risk factors are also available in the User Instructional Booklet to be presented on the day of the hearing aid fitting. Hearing aids ordered. Hearing aid evaluation completed. Patient signed release of information so that medical clearance and previous records may be obtainedfrom [facility]. PLAN: Ronn is scheduled to return in 2-3 weeks for a hearing aid fitting and programming. Purchaseagreement will be completed on that date. Please contact this clinic with any questions or concerns. Bora Gonzalez Pearl Technician [place] License #[id number] E REPAIRER documented in this encounter Plan of Treatment Not on filedocumented as of this encounter Procedures Procedure Name Priority Date/Time Associated Diagnosis Comme [facility] HEARING AID EXAM Routine 08/06/2016 2:34 PM Sensorineural h earing BINAURAL FRAME REPAIRER loss, bilateral Tinnitus, bilateral documented in this encounter Visit Diagnoses Diagnosis Sensorineural hearing loss, bilateral - Primary Tinnitus, bilateral Unspecified tinnitus documented in this encounter Additional Health Concerns Assessment Noted Time PHQ-9 Depression Total Score: 5 03/20/2016 7:18 AM CDT documented as of this encounter Care Teams Sales And Production Manager Relationship Specialty Start Date End Date Carlos Chapman PCP - General Family Practice 02/06/14 04/29/19 MD Saw Carlos Chapman PCP - Assigned PCP 06/28/16 08/02/18 [place] [id number] [address] [place] [id number] Aida Hdz, Clinic Firmware Engineer Deputy Administrator - 12/12/15 01/21/17 [facility] Clinical Carlos Chapman Assigned PCP 06/28/16 02/24/[place] [id number] [address] [id number] documented as of this encounter
--- OUTSIDE RECORDS SUMMARY | 2022-03-31 16:55 | XMS_ITS | Encounter Summary ---
:1985 Author Organization [place] Address [address] [place] [address] Care Team Providers Name Role Phone Carlos Chapman MD Primary Care Provider [phone] Aida Hdz [facility] Un[facility] Reason for Visit Rehab Therapy Physical Therapy - Closed Specialty Diagnoses / Procedures Referred By Contact Refer red To Contact Physical Therapy Diagnoses Cisplatin induced neuropathy (H) Polymyalgia (H) [facility] [address] [place] [address] Phone: Fax: Referral ID Status Reason Start Date Expiration Date Visits V isits Requested Authorized [facility] Closed 08/05/2015 05/30/[phone] [id number]) Encounter Details Date Type Department Care Team Description 05/04/[address] [facility] [place] [address] [address] T[address] [place], [place] [id number] [facility] Kacie Santiago, PT [address] [place] [address] [address] Social History Tobacco Use Types Packs/Day Years Used Date Smoking Tobacco: Never Smokeless Tobacco: Never Alcohol Use Standard Drinks/Week Comments Yes 0 (1 standard drink = 0.6 oz pure alcoho l) couple drinks per month Sex Assigned at Date Recorded Not on file documented as of this encounter Medications at [...] taking medical cannabis.) cholecalciferol Take 1 capsule 12 capsule 0 03/29/201606/03 (VITAMIN D3) 58642 (50,000 Units) by UNITS mouth once a week capsuleIndications: Vitamin D deficiency fluticasone (FLONASE) [place] 1-2 sprays 1 Bottle 11 03/26/20 16 06/03/2016 50 MCG/ACT nasal into both sprayIndications: nostrils daily Acute suppurative otitis media of left ear with spontaneous rupture of tympanic membrane, recurrence not specified fluticasone (FLONASE) [place] 1-2 sprays 1 Bottle 3 01/03/20 16 08/17/2016 50 MCG/ACT nasal into both sprayIndications: nostrils daily Seasonal allergic rhinitis ibuprofen Take 1 tablet 30 tablet 1 04/18/2016 06/12/2016 (ADVIL,MOTRIN) 600 MG (600 mg) by mouth tabletIndications: every 6 hours as Other acute needed for nonsuppurative otitis moderate pain media of left ear lisinopril Take 1 tablet (20 90 tablet 1 03/03/2016 01/04/2 017 (PRINIVIL,ZESTRIL) 20 mg) by mouth MG tabletIndications: daily Benign essential hypertension documented as of this encounter Progress Notes Kacie Santiago, PT - 05/04/2016 11:55 AM CST Outpatient Physical Therapy Discharge Note Patient: Ronn Hinkle : 1985 Beginning/End Dates of Reporting Period: 08/07/15 to 05/04/2016 Referring Provider: Dr. Carlos Chapman Therapy Diagnosis: decline in functional activity tolerance and QOL Client Self Report: Pt hasn't shown up for last couple PT sessions. Last pool session on 02/27/16 Objective Measurements: Pain -02/17/16 rated as 4/10 felt in the groin on that date. Has also felt like tightness/ripping inhis side, abdomen Continues to have episodes of increased HR and difficulty breathing. See PT note dated 02/24/16. Outcome Measures (most recent score): Not able to retake [facility] Goals: Goal 1 ?? Goal Identifier 1 ?? Goal Description Nathan to report his pain as 4/10 or less on average to demonstrate pain reduction to allow improved function. Has intermittently met this goal ? Target Date 02/28/16 ?? Goal 2 ?? Goal Identifier 2 ?? Goal Description Nathan to perform SLS on R LE for 20 seconds or greater to demonstrate improved balance and functional hip strength for donning/doffing pants, performance of stairs and improved gait. Not met. ?? Target Date 02/28/16 ?? Goal 4 ?? Goal Identifier 4 ?? Goal Description Nathan to be independent in HEP for the pool and land to continue to safely address his impairments follwoing d/ c from skilled PT Was independent in HEP when last seen for land therapy. Independent in pool PT program ?? Target Date 02/28/16 ?? Goal 5 ?? Goal Identifier 5 ?? Goal Description Nathan to tolerate sitting for 10 minutes to allow improved functional tolerance to driving, mowing lawn ( riding roller skates assembler) and general ADL's i Goal 5 met inconsistently. Progress Toward Goals: Progress this reporting period: Intermittent improvements. Continued to have complaints of pain and tightness. Continues to be limited by pain, muscle and fascial tightness. Decreased endurance to activity. Did not come for last couple land PT sessions. No contact from pt. Plan: Discharge from therapy. Discharge: Reason for Discharge: no show and no contact from pt Equipment Issued: HEP Discharge Plan: Patient to continue home program. CHASER documented in this encounter Plan of Treatment Not on filedocumented as of this encounter Visit Diagnoses Not on filedocumented in this encounter Additional Health Concerns Assessment Noted Time PHQ-9 Depression Total Score: 5 03/20/2016 7:18 AM CDT documented as of this encounter Care Teams Sheepskin Pickler Relationship Specialty Start Date End Date Carlos Chapman PCP - General Family Practice 02/06/14 04/29/19 MD Saw Aida Hdz, Clinic Pan Pusher Vest Tailor - 12/12/15 01/21/17 [facility] Clinical documented as of this encounter
--- OUTSIDE RECORDS SUMMARY | 2022-03-31 16:56 | XMS_ITS | Encounter Summary ---
:1985 Author Organization [place] Address [address] [place] [address] Care Team Providers Name Role Phone Carlos Chapman MD Primary Care Provider [phone] Aida Hdz [facility] Unavailable Reason for Visit Rehab Therapy Physical Therapy - Closed Specialty Diagnoses / Procedures Referred By Contact Refer red To Contact Physical Therapy Diagnoses Cisplatin induced neuropathy (H) Polymyalgia (H) [facility] [address] [place] [address] Phone: Fax: Referral ID Status Reason Start Date Expiration Date Visits V isits Requested Authorized [facility] Closed 08/05/2015 05/30/2016 365 38 [id number]) Encounter Details Date Type Department Care Team Description 01/08/2016 Hospital Encounter [facility] [place] [address] [place] [address] Rehabilitation Services Krystle Boo PT [address] [address] Social History Tobacco Use Types Packs/Day Years [...] as needed 200-200-20 MG/5ML SUSP for indigestion medical cannabis oral 100 mLs (This is 0 Information 0 liquid (Patient's own NOT a only supply. Not a prescription, and prescription)Indicatio does not certify ns: Polymyalgia (H), that the patient Cisplatin induced has a qualifying neuropathy (H) medical condition for medical cannabis. The purpose of this order is to document that the patient reports taking medical cannabis.) acetaminophen Take 2 tablets 40 tablet 0 08/07/2015 016 (TYLENOL) 325 MG (650 mg) by mouth tablet every 4 hours as needed cholecalciferol Take 1 capsule 12 capsule 1 11/05/201503/18 (VITAMIN D3) 57759 (50,000 Units) by UNITS mouth once a week capsuleIndications: Vitamin D deficiency fluticasone (FLONASE) [place] 1-2 sprays 1 Bottle 3 01/03/20 16 08/17/2016 50 MCG/ACT nasal into both sprayIndications: nostrils daily Seasonal allergic rhinitis ibuprofen Take 3 tablets 40 tablet 0 10/23/2015 02/10/2016 (ADVIL,MOTRIN) 200 MG (600 mg) by mouth tablet every 6 hours as needed ibuprofen Take 3 tablets 40 tablet 0 08/07/2015 03/03/2016 (ADVIL,MOTRIN) 200 MG (600 mg) by mouth tablet every 6 hours as needed for mild pain lisinopril Take 0.5 tablets 30 tablet 1 12/10/2015 03/03/20 16 (PRINIVIL,ZESTRIL) 20 (10 mg) by mouth MG tabletIndications: daily Benign essential hypertension medical cannabis 1 Dose (This is 0 Information 0 03/03/2016 (Patient's own supply. NOT a only Not a prescription, and prescription)EQUISOtio does not certify ns: Chronic pain that the patient syndrome, 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 The Muscle spasm, Cancer purpose of this related pain, Medical order is to cannabis use document that the patient reports taking medical cannabis.) documented as of this encounter Progress Notes Krystle Boo, PT - 01/09/2016 11:04 PM CDT AQUATIC PHYSICAL THERAPY EXERCISE LOG (TRUNK) Date? Jayne Archereddie, DPT 12/05/15? Krystle Boo PT, DPT 12/11/15? Krystle Boo PT, DPT 12/25/15? Krystle Boo PT, DPT 01/01/16?? Krystle Boo PT, DPT 01/08/16 Warm Up? Ambulation (Forward/Side/Back/March/All)? X 2 f/s/b? X 2 f/s/b??cues for visual fixation, breathing, facil for posture, pt reports brief dizziness following 1 lap which improved after cues for breathing? x2 ea cues for looser/softer motions with pt demonstrating ten dency to hold himself stiffly? x2 ea cues for looser/softer motions with pt demonstrating tendency to hold himself stiffly? x2 ea demos continued tendency to hold himself stiffly, but pt reports trying to move more fluidly in the water ? Stretching/ROM? Chin Tucks? CROM (Flex/Ext/SB/Rot/All)? Shoulder (Shrugs/Rolls)? Scapular (Retraction/Depression)? Upper Trunk (Levator/Scalene/Upper Trapezius)? 30 sec x2?? levator scap and upper trap stretchs UE anchored on pool bench? Pec Stretch (Unilateral/Bilateral)? Posterior Shoulder? Gluteal? 30 sec x 2- cues for hip alignment, modification of ROM? 30 sec x 2- cues for hip alignment, modification of ROM? 30 sec x 2?? 30 sec x 2 with active hip ER/cross body IR for mobility with stretchs? Hamstring (On Step/Cuff)? 30 sec x 2- with noodle and therapist assist? 30 sec x 2- with noodle and therapist assist? 30 sec x 2- with noodle and therapist assist?with gentle hip abd/add for PROM? 30 sec x 2- with noodle and therapist assist?with gentle hip abd/add for PROM? 30 sec x 2- with noodle with gentle hip abd/add for PROM? Calf (In Hole/At Wall)? 30 sec x 2 with limited ROM on the L side? 30 sec x 2? 30 sec x 2? 30 sec x 2? 30 sec x 2? Quad? 30 sec x2 with noodle? 30 sec x2 with noodle? Hip Flexor (Kneel)? Piriformis (Seated/Stand)? 2x 30 sec? Trunk ROM (Flex/Ext/SB/Rot/All)? 4x flex/ext reports good stretch to abdomen, cues and facil for neutral cervical alignment? 4x flex/ext reports good stretch to abdomen,?? 4x flex/ext reports good stretch to abdomen,??additional trunk SB with cues for gentle mobilityvs sustained holds for improved matthew ? BAD RAGAZ? Ankle circles clockwise/CCW 5x ea with opposite LE SL standing holding wall for support? Ankle circles and pumps 8x ea supported in corner? Holding railing along pool wall with B knee to chest feet supported on wall soft flex/ext, pt reports some relief to low back Strengthening? Abdominal Sets/ Pelvic Tilt? With cues and education on contraction? With cues and facil on contraction? With cues and facil on contraction? Shoulder (Flex/Ext, Abd/Add, IR/ER, Circles, Alternation flex/ext for core)? In wall sit for abdominal tightening 10x B UE flex/ext and abd/add, reports feeling core activation maintaining slower movements with water resistance? In standing open paddles alternating fl ex/ext; x8 ea (no circles), encouraging larger/more comfortable ROM? Horizon (Abd/Add, Diagonals)? (as above)? (as above) ? Rowing Arms? UE PNF (D1/D2)? Abdominal Sets (Push/Pull, side to side, push down with board)? With ball medium x 10 each? Squat? X 10 with wall support, cues for improved ROM/tolerance ~25 ROM? x8 holding noodle with hip hinges to wall, improved range? x10 holding noodle with hip hinges to wall, improved range? x10 holding noodle with hip hinges to wall, improved range cues for abdominal tightening? Lunge Squat? Hip (Flex/Ext, Abd/Add, single leg bike, circles, figure 8, All)? X 10- Many cues for decreased ROM, no figure 8? x10 flex/ext, abd/add continued inc cues for small ROM? X 10- continued cues for decreased ROM, no figure 8? Heel/Toe Raises? Trialed, but discontinued on L despite modification? Improved tolerance, B UE assist on wall x10? Step Ups (Forward, Lateral)? Noodle Push Downs with UE(B UE/1 UE) for core strengthening? X 10 with colored noodle- B UE? Noodle Push Downs with LE? Stir the Pot/Punches with Dumbells? Sit to Stand at Bench? x10 initially without UE support, reporting L thigh pain, improved matthew with min fingertip touch on bench? Prone Plank on step? Side Plank on step? Aerobic? Fast Walking? Bike/Ski/Kevin/All? Balance? Narrow Base of Support? Tandem Stand? Single Leg Stance? Heel/Toe Walking? 3 Step and Stop? Braiding? Cool Down? Ambulation? x1? x1? x1? [place] Dangle? Biking in corner x 5 mins? Biking in corner x 5 mins? Biking in corner x 3 mins? Biking in corner x 3 mins??, improved matthew smaller ranges ? Whirlpool? Prior to session (I) documented in this encounter Plan of Treatment Not on filedocumented as of this encounter Visit Diagnoses Not on filedocumented in this encounter Care Teams Mailer Relationship Specialty Start Date End Date Carlos Chapman PCP - General Family Practice 02/06/14 04/29/19 MD Saw Aida Hdz, Clinic Motion Picture Camera Operator Leaf Sticker - 12/12/15 01/21/17 [facility] Clinical documented as of this encounter
--- OUTSIDE RECORDS SUMMARY | 2022-03-31 16:56 | XMS_ITS | Encounter Summary ---
:1985 Author Organization [place] Address [address] [place] [address] Care Team Providers Name Role Phone Carlos Chapman MD Primary Care Provider [phone] Aida Hdz Unavailable Carlos Chapman MD Unavailable Carlos Chapman MD Unavailable [facility] Reason for Visit Reason Onset Date Comments Referral 11/13/2015 Dr. Medel Encounter Details Date Type Department Care Team Description 11/13/[address] [facility] Pain Management Referra l (Dr. Medel) [address] [address] Social History Tobacco Use Types Packs/Day Years Used Date Smoking Tobacco: Never Smokeless Tobacco: Never Alcohol Use Standard Drinks/Week Comments Yes 0 (1 standard drink = 0.6 oz pure alcoho l) 2 mixed drinks, 2-3 days week Sex Assigned at Date Recorded Not on file documented as of this encounter Miscellaneous Notes Telephone Encounter - Alivia Matias - 11/13/2015 12:23 PM CDT Called patient to schedule [address] Medel. SHAWN Mat[facility] documented in this encounter Plan of Treatment Not on filedocumented as of this encounter Visit Diagnoses Not on filedocumented in this encounter Care Teams Paraffin Plant Operator Relationship Specialty Start Date End Date Carlos Chapman, PCP - General Family Practice 02/06/14 1 06/29/18 Carlos Chapman, PCP - Assigned PCP 06/28/16 08/02/18 [id number] [facility], PCP - General 04/30/19 [facility]- [address] [place] [address] Aida Hdz, [facility] Clinic Coal Wheeler Projects Manager - 12/12/15 01/21/17 Clinical Carlos Chapman, Assigned PCP 06/28/16 [id number] [address] [id number] documented as of this encounter
--- OUTSIDE RECORDS SUMMARY | 2022-03-31 16:56 | XMS_ITS | Encounter Summary ---
:1985 Author Organization [place] Address [address] [place] [address]. [place] [address] Care Team Providers Name Role Phone Carlos Chapman MD Primary Care Provider [phone] Reason for Visit Reason Onset Date Comments Other 11/15/2015 [facility] Encounter Details Date Type Department Care Team Description 11/15/2015 Telephone [facility] Mic Hester Other ([facility]) Clinic Harned DANIKA Gramajo [address] [place] [address] 5 5068 [phone] Social History Tobacco Use Types Packs/Day Years Used Date Smoking Tobacco: Never Smokeless Tobacco: Never Alcohol Use Standard Drinks/Week Comments Yes 0 (1 standard drink = 0.6 oz pure alcoho l) 2 mixed drinks, 2-3 days week Sex Assigned at Date Recorded Not on file documented as of this encounter Miscellaneous Notes Telephone Encounter - Keyanna Alonso RN - 11/28/2015 11:00 AM CDT No further reach out has been regarding this issue, Closing Keyanna DENNISN-RN Cell Reliner [facility] Telephone Encounter - Keyanna Alonso RN - 11/18/2015 9:58 AM CDT An Application for sickness benefits was scanned into system on 01/09/15. Called Thien at number below and advised that we have nothing else aside from these documents in regards to his work/employement status. She was wanting to know about pt's driving status and work abilities. Advised I can not speak to that, we have not evaluated him for those specifics, advised of possible functional capacity eval. She states that she will look into further who else she needs to contact regarding this information. Keyanna DENNISN-RN Cell Rel[facility] Telephone Encounter - Bettina Bejarano DO - 11/18/2015 9:14 AM CDT It is documented in a telephone encounter on 01/07/15, that I completed paperwork and sent it for scanning; however, I cannot find the scanned paperwork in the chart. If he needs ongoing paperwork for disability from me, I typically recommend a functional capacity evaluation. 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 Bettina Bejarano DO [facility] Telephone Encounter - Margareth Devries RN - 11/16/2015 10:[address] like Dr. Bejarano at the pain clinic initially filled out patient's disability paperwork. Will route message to their office. Margareth Devries RN Telephone Encounter - Mic Hester PA-C - 11/15/2015 4:27 PM CDT I'm not sure I ever said he needed to stop working. ajp Telephone Encounter - Karla Almanza RN - 11/15/2015 2:06 PM CDT [facility] Child Support needs to know the diagnosis of this pt that is stopping him from working. Thien callback: [phone] Routing to Mic to advise. Karla Almanza, RN documented in this encounter Plan of Treatment Not on filedocumented as of this encounter Visit Diagnoses Not on filedocumented in this encounter Care Teams Loading Unit Operator Powder Charging Relationship Specialty Start Date End Date Carlos Chapman MD PCP - General Family Practice 02/06/14 04/29/19 documented as of this encounter
--- OUTSIDE RECORDS SUMMARY | 2022-03-31 16:56 | XMS_ITS | Encounter Summary ---
:1985 Author Organization [place] Address [address] [place] [address]. [place] [address] Care Team Providers Name Role Phone Carlos Chapman MD Primary Care Provider [phone] Reason for Visit Reason Comments Clinic Care Coordination - Follow-up Encounter Details Date Type Department Care Team Description 12/03/2015 Care Coordination [facility] Carlos Chapman Care Care Coordination MD Saw Coordination - [address] [place] [id number] [address] Follow-up ( ) [place] [phone] [id number] Social History Tobacco Use Types Packs/Day Years Used Date Smoking Tobacco: Never Smokeless Tobacco: Never Alcohol Use Standard Drinks/Week Comments Yes 0 (1 standard drink = 0.6 oz pure alcoho l) 2 mixed drinks, 2-3 days week Sex Assigned at Date Recorded Not on file documented as of this encounter Progress Erlin Olsen - 12/03/2015 1:10 PM CDT Care Coordination Contact Attempt Referral Source: PCP Clinical Data: Refer to CC order. Outreach attempted x 1. Left message on voicemail with call back information and requested return call. Pt was to have a SHUTTLE INSPECTOR assessment on 11/29/15. Pt asked that call to follow-up with him this week to determine how the assessment went for him. Plan: Will attempt to contact in 1-3 business days and await response to message. Erlin Osman, HOSPITAL NURSE, TECHNICAL SPECIALIST Social Work - Manager Cardiovascular [facility] Therese [facility] and [place] documented in this encounter Plan of Treatment Not on filedocumented as of this encounter Visit Diagnoses Not on filedocumented in this encounter Care Teams Transition Assistant Relationship Specialty Start Date End Date Carlos Chapman MD PCP - General Family Practice 02/06/14 04/29/19 documented as of this encounter
--- OUTSIDE RECORDS SUMMARY | 2022-03-31 16:56 | XMS_ITS | Encounter Summary ---
:1985 Author Organization [employer] Address [address] [place] [address] Care Team Providers Name Role Phone Carlos Chapman MD Primary Care Provider [phone] A[address] Hdz [facility] Unavailable Reason for Visit Rehab Therapy Physical Therapy - Closed Specialty Diagnoses / Procedures Referred By Contact Refer red To Contact Physical Therapy Diagnoses Cisplatin induced neuropathy (H) Polymyalgia (H) [facility] [address] [place] [address] Phone: Fax: Referral ID Status Reason Start Date Expiration Date Visits V isits Requested Authorized [facility]-PT Closed 08/05/2015 05/30/2016 365 38 ([id number]) Encounter Details Date Type Department Care Team Description 01/06/2016 Hospital Encounter [facility] [place] [address] [place] [address] Rehabilitation Services Kacie Santiago, PT [address] [place], [place] [id number] [address] [address] Social History Tobacco Use Types [...] capsule 12 capsule 1 11/05/201503/18 (VITAMIN D3) 07876 (50,000 Units) by UNITS mouth once a week capsuleIndications: Vitamin D deficiency fluticasone (FLONASE) [place] 1-2 sprays 1 Bottle 3 01/03/20 16 [...] NOT a only Not a prescription, and prescription)Indicatio does not certify ns: Chronic pain that the patient syndrome, 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 The Muscle spasm, Cancer purpose of this related pain, Medical order is to cannabis use document that the patient reports taking medical cannabis.) documented as of this encounter Plan of Treatment Not on filedocumented as of this encounter Visit Diagnoses Not on filedocumented in this encounter Care Teams Skidder Lever Operator Relationship Specialty Start Date End Date Carlos Chapman PCP - General Family Practice 02/06/14 04/29/19 MD Saw Aida Hdz, Clinic Power Manager Software Installer - 12/12/15 01/21/17 [facility] Clinical documented as of this encounter
--- OUTSIDE RECORDS SUMMARY | 2022-03-31 16:56 | XMS_ITS | Encounter Summary ---
:1985 Author Organization [place] Address [address] [place] [address] Care Team Providers Name Role Phone Carlos Chapman MD Primary Care Provider [phone] Aida Hdz [facility] Unavailable Reason for Visit Rehab Therapy Physical Therapy - Closed Specialty Diagnoses / Procedures Referred By Contact Refer red To Contact Physical Therapy Diagnoses Cisplatin induced neuropathy (H) Polymyalgia (H) [facility] [address] [place] [address] Phone: Fax: Referral ID Status Reason Start Date Expiration Date Visits V isits Requested Authorized [facility] Closed 08/05/2015 05/30/2016 365 38 ([id number]) Encounter Details Date Type Department Care Team Description 02/27/2016 Hospital Encounter [facility] [place] [address] [facility] [address] Rehabilitation Services Jayne De Souza, PT [address] [facility] [place] [id number] [facility] [address] [place] [address] Social History Tobacco Use Types [...] induced needed neuropathy (H) medical cannabis oral 100 mLs (This is [...] capsule 12 capsule 1 11/05/201503/18 (VITAMIN D3) 55544 (50,000 Units) by UNITS mouth once a week capsuleIndications: Vitamin D deficiency fluticasone (FLONASE) [place] 1-2 sprays 1 Bottle 3 01/03/20 16 [...] documented as of this encounter Progress Notes Jayne De Souza, PT - 02/27/2016 11:11 AM CDT AQUATIC PHYSICAL THERAPY EXERCISE LOG (TRUNK) Date? Jayne De Souza, DPT 12/05/15? Krystle Katzmark PT, DPT 12/11/15? Krystle Katzmark PT, DPT 12/25/15? Krystle Katzmark PT, DPT 01/01/16? Krystle Katzmark PT, DPT 01/08/16? Jayne De Souza, DPT 02/17/16? Jayne De Souza, DPT 02/20/16?? Jayne De Souza, DPT 02/27/16 Warm Up? Ambulation (Forward/Side/Back/March/All)? X 2 f/s/b?X 2 f/s/b??cues for visual fixation, breathing, facil for posture, pt reports brief dizziness following 1 lap which improved after cues for breathing? x2 ea cues for looser/softer motions with pt demonstrating tendency to hold himself stiffly? x2 ea cues for looser/softer motions with pt demonstrating tendency to hold himself stiffly? x2 ea demos continued tendency tohold himself stiffly, but pt reports trying to move more fluidly in the water? X 2 Each? X2 Each?? X 2 Each ? Stretching/ROM? Chin Tucks? CROM (Flex/Ext/SB/Rot/All)? Shoulder (Shrugs/Rolls)? Scapular (Retraction/Depression)? Upper Trunk (Levator/Scalene/Upper Trapezius)? 30 sec x2?? levator scap and upper trap stretchs UE anchored on pool bench? Pec Stretch (Unilateral/Bilateral)? Posterior Shoulder? Gluteal? 30 sec x 2- cues for hip alignment, modification of ROM? 30 sec x 2- cues for hip alignment, modification of ROM? 30 sec x 2? 30 sec x 2 with active hip ER/cross body IR for mobility with stretchs? 15 sec x 2 B? 15 sec x 2 B?? 15 sec x 2 B ? Hamstring (On Step/Cuff)? 30 sec x 2- with noodle and therapist assist? 30 sec x 2- with noodle and therapist assist? 30 sec x 2- with noodle and therapist assist?with gentle hip abd/add for PROM? 30 sec x 2- with noodle and therapist as sist?with gentle hip abd/add for PROM? 30 sec x 2- with noodle with gentle hip abd/add for PROM? 15 sec x 2 B? 15 sec x 2 B?? 15 sec x 2 B ? Calf (In Hole/At Wall)? 30 sec x 2 with limited ROM on the L side? 30 sec x 2? 30 sec x 2? 30 sec x 2? 30 sec x 2? 15 sec x 2 B? Quad? 30 sec x2 with noodle? 30 secx2 with noodle? 15 sec x 2 B with noodle?? 15 sec x 2 B ? Hip Flexor (Kneel)? Piriformis (Seated/Stand)? 2x 30 sec? Trunk ROM (Flex/Ext/SB/Rot/All)? 4x flex/ext reports goodstretch to abdomen, cues and facil for neutral cervical alignment? 4x flex/extreports good stretch to abdomen,? 4x flex/ext reports good stretch to abdomen,??additional trunk SB with cues for gentle mobility vs sustained holds for improved matthew? BAD RAGAZ? Ankle circles clockwise/CCW 5x ea with opposite LE SL standing holding wall for support? Ankle circles and pumps 8x ea supported in corner? Holding railing along pool wall with B knee to chest feet supported on wall soft flex/ext, pt reports some relief to low back? Tall kneel with cues for glute sets for gentle stretching?? Strengthening? Abdominal Sets/ Pelvic Tilt? With cues and education on contraction? With cues and facil on contraction? With cues and facil on contraction? With exercises? With exercises? Shoulder (Flex/Ext, Abd/Add, IR/ER, Circles, Alternation flex/ext for core)? In wall sit for abdominal tightening 10x B UE flex/ext and abd/add, reports feeling core activation maintaining slower movements with water resistance? In standing open paddles alternating flex/ext; x8 ea (no circles), encouraging larger/more comfortable ROM? In wall sit with open paddles x 10?? Education on performing in wall sit, then progress to standing away from wall then if able kneeling ? Horizon (Abd/Add, Diagonals)? (as above)? (as above) ? Rowing Arms? UE PNF (D1/D2)? Abdominal Sets (Push/Pull, side to side, push down with board)? With ball medium x 10 each? With small board x10 ? With small board x 10?? Education re progression of exercises away from wall ? Squat? X 10 with wall support, cues for improved ROM/tolerance ~25 ROM? x8 holding noodle with hip hinges to wall, improved range? x10 holding noodlewith hip hinges to wall, improved range? x10 holding noodle with hip hinges to wall, improved range cues for abdominal tightening? X 10 with noodle and glute taps? X 10 with noodle and glute taps? Lunge Squat? Side lunges x 2 laps ? Hip (Flex/Ext, Abd/Add, single leg bike, circles, figure 8, All)? X 10- Many cues for decreased ROM, no figure 8? x10 flex/ext, abd/add continued inc cues for small ROM? X 10- continued cues for decreased ROM, no figure 8? X 10 with wall support? With noodle support for increased balance challenge x 10, small ROM, education on balance training?? With 1 UE on wall x 10 ? Heel/Toe Raises? Trialed, but discontinued on L despite modification? Improved tolerance, B UE assist on wall x10? Step Ups (Forward, Lateral)? Noodle Push Downs with UE(B UE/1 UE) for core strengthening? X 10 with colored noodle- B UE? X 10 with colored noodle? X 10 with colored noodle? Noodle Push Downs with LE? X 10 with colored noodle? X 10 with white noodle?? Poor tolerance today, reports too painful in abdominal region ? Stir the Pot/Punches with Dumbells? Sit to Stand at Bench? x10 initially without UE support, reporting L thigh pain, improved matthew with min fingertip touch on bench? Prone Plank on step? Side Plank on step? Aerobic? Fast Walking? Bike/Ski/Kevin/All? X 5 mins in corner for gently relaxation? Balance? Narrow Base of Support? Tandem Stand? Single Leg Stance? Heel/Toe Walking? 3 Step and Stop? Braiding? X 3 mins of gentle relaxation over noodle with hands on wall for unwting? X 3 mins of gentle relaxation over noodle with hands on wall for unwting? Cool Down? Ambulation? x1? x1? x1? [place] Dangle? Biking in corner x 5 mins? Biking in corner x 5 mins? Biking in corner x 3 mins? Biking in corner x 3 mins??, improved matthew smaller ranges? X 5 mins in corner for relaxation. ? Whirlpool? Prior to session (I? Prior to session? Prior to session?? X 10 mins due to poor tolerance today, pt was instructed verbally and visually on exercises to progress to. Pt was educated and needing reinforcement on pacing. ? documented in this encounter Plan of Treatment Not on filedocumented as of this encounter Visit Diagnoses Not on filedocumented in this encounter Care Teams Automotive Artist Relationship Specialty Start Date End Date Carlos Chapman PCP - General Family Practice 02/06/14 04/29/19 MD Saw Aida Hdz, Clinic Multi Spindle Operator Orthopedic Mechanic - 12/12/15 01/21/17 [facility] Clinical documented as of this encounter
--- OUTSIDE RECORDS SUMMARY | 2022-03-31 16:56 | XMS_ITS | Encounter Summary ---
:1985 Author Organization [address] [place] [address] Care Team Providers Name Role Phone Carlos Chapman MD Primary Care Provider [phone] Aida Hdz [facility] Unavailable Reason for Visit Reason Comments Clinic Care Coordination - Follow-up ccsw Encounter Details Date Type Department Care Team Description 01/10/2016 Care Coordination [facility] Carlos Chapman [facility] Care Care Coordination MD Saw Coordination - [address] [place] [address] [facility] Follow-up ( ccsw) [place] [address] Social History Tobacco Use Types Packs/Day Years Used Date Smoking Tobacco: Never Smokeless Tobacco: Never Alcohol Use Standard Drinks/Week Comments Yes 0 (1 standard drink = 0.6 oz pure alcoho l) couple drinks per month Sex Assigned at Date Recorded Not on file documented as of this encounter Progress Notes Aida Hdz - 01/10/2016 9:02 AM CDT Care Coordination Contact Referral Source: PCP Clinical Data: Follow up on PCP assessment CCSW spoke to patient who reports that his [employer] services have started and were cleared by his insurance. He receives two days a week of [employer] services and feels that has been very beneficial for his care.He expressed that he was happy with the services and felt the company was doing a very good job. Reports a better mood and feelings that his needs are being met. Reports no other concerns at this time but agreed to monthly follow up. Plan: SW will mail out acces plan with her card SW will f/u in a month Pt will call as needed SERGE Chavis, [facility] Social Work Production Control Clerk P:[phone] [facility] [place] [facility] [place] documented in this encounter Plan of Treatment Not on filedocumented as of this encounter Visit Diagnoses Not on filedocumented in this encounter Care Teams Diet Therapist Relationship Specialty Start Date End Date Carlos Chapman PCP - General Family Practice 02/06/14 04/29/19 MD Saw Aida Hdz, Clinic Production Control Clerk Billing Department Supervisor - 12/12/15 01/21/17 [facility] Clinical documented as of this encounter
--- OUTSIDE RECORDS SUMMARY | 2022-03-31 16:56 | XMS_ITS | Encounter Summary ---
:1985 Author Organization [place] Address [address] [place] [address] Care Team Providers Name Role Phone Carlos Chapman MD Primary Care Provider [phone] Reason for Visit Rehab Therapy Physical Therapy - Closed Specialty Diagnoses / Procedures Referred By Contact Refer red To Contact Physical Therapy Diagnoses Cisplatin induced neuropathy (H) Polymyalgia (H) [facility] [address] [place] [address] Phone: Fax: Referral ID Status Reason Start Date Expiration Date Visits V isits Requested Authorized [facility] Closed 08/05/2015 05/30/2016 365 38 [id number]) Encounter Details Date Type Department Care Team Description 12/05/2015 Hospital Encounter [facility] [place] [address] [address] [place], [place] [id number] Rehabilitation Services Jayne De Souza, PT [address] [facility] [facility] [address] [facility] [address] [place] [address] Social History Tobacco Use [...] capsule 12 capsule 1 11/05/201503/18 (VITAMIN D3) 36906 (50,000 Units) by UNITS mouth once a week capsuleIndications: Vitamin D deficiency fluticasone (FLONASE) 0 06/18/201509/2015 50 MCG/ACT nasal spray ibuprofen Take 3 tablets 40 tablet 0 10/23/2015 02/10/2016 (ADVIL,MOTRIN) 200 MG (600 mg) by mouth tablet every 6 hours as needed ibuprofen Take 3 tablets 40 tablet 0 08/07/2015 03/03/2016 (ADVIL,MOTRIN) 200 MG (600 mg) by mouth tablet every 6 hours as needed for mild pain medical cannabis 1 Dose (This is 0 Information 0 03/03/2016 (Patient's own supply. 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 The Muscle spasm, Cancer purpose of this related pain, Medical order is to cannabis use document that the patient reports taking medical cannabis.) documented as of this encounter Progress Notes Jayne De Souza, PT - 12/05/2015 9:42 AM CDT AQUATIC PHYSICAL THERAPY EXERCISE LOG (TRUNK) Date Jayne De Souza DPT 12/05/15 Warm Up Ambulation (Forward/Side/Back/July/All) X 2 f/s/b Stretching/ROM Chin Tucks CROM (Flex/Ext/SB/Rot/All) Shoulder (Shrugs/Rolls) Scapular (Retraction/Depression) Upper Trunk (Levator/Scalene/Upper Trapezius) Pec Stretch (Unilateral/Bilateral) Posterior Shoulder Gluteal 30 sec x 2- cues for hip alignment, modification of ROM Hamstring (On Step/Cuff) 30 sec x 2- with noodle and therapist assist Calf (In Hole/At Wall) 30 sec x 2 with limited ROM on the L side Quad Hip Flexor (Kneel) Piriformis (Seated/Stand) Trunk ROM (Flex/Ext/SB/Rot/All) BAD RAGAZ Strengthening Abdominal Sets/ Pelvic Tilt With cues and education on contraction Shoulder (Flex/Ext, Abd/Add, IR/ER, Circles, Alternation flex/ext for core) Horizon (Abd/Add, Diagonals) Rowing Arms UE PNF (D1/D2) Abdominal Sets (Push/Pull, side to side, push down with board) With ball medium x 10 each Squat X 10 with wall support, cues for improved ROM/tolerance ~25 ROM Lunge Squat Hip (Flex/Ext, Abd/Add, single leg bike, circles, figure 8, All) X 10- Many cues for decreased ROM,no figure 8 Heel/Toe Raises Trialed, but discontinued on L despite modification Step Ups (Forward, Lateral) Noodle Push Downs with UE(B UE/1 UE) for core strengthening X 10 with colored noodle- B UE Noodle Push Downs with LE Stir the Pot/Punches with Dumbells Sit to Stand at Bench Prone Plank on step Side Plank on step Aerobic Fast Walking Bike/Ski/Kevin/All Balance Narrow Base of Support Tandem Stand Single Leg Stance Heel/Toe Walking 3 Step and Stop Braiding Cool Down Ambulation [place] Dangle Biking in corner x 5 mins Whirlpool documented in this encounter Plan of Treatment Not on filedocumented as of this encounter Visit Diagnoses Not on filedocumented in this encounter Care Teams Supervisor Special Effects Relationship Specialty Start Date End Date Carlos Chapman MD PCP - General Family Practice 02/06/14 04/29/19 documented as of this encounter
--- OUTSIDE RECORDS SUMMARY | 2022-03-31 16:56 | XMS_ITS | Encounter Summary ---
:1985 Author Organization [place] Address [facility] [place] [address] Care Team Providers Name Role Phone Carlos Chapman MD Primary Care Provider [phone] Aida Hdz [facility] Unavailable Reason for Visit Reason Comments Allied Health Visit BP check Encounter Details Date Type Department Care Team Description 12/27/2015 Allied Health/Nurse [facility] ied Health Visit (BP Visit Clinic [place] check ) [address] [place] [address] Social History Tobacco Use Types Packs/Day Years Used Date Smoking Tobacco: Never Smokeless Tobacco: Never Alcohol Use Standard Drinks/Week Comments Yes 0 (1 standard drink = 0.6 oz pure alcoho l) couple drinks per month Sex Assigned at Date Recorded Not on file documented as of this encounter Last Filed Vital Signs Vital Sign Reading Time Taken Comments Blood Pressure 132/80 12/27/2015 9:46 AM CDT Pulse 88 12/27/2015 9:46 AM CDT Temperature - - Respiratory Rate - - Oxygen Saturation - - Inhaled Oxygen Concentration - - Weight - - Height - - Body Mass Index - - documented in this encounter Nursing Notes Sonya Cantrell CMA - 12/27/2015 9:45 AM CDT Ronn Hinkle is a 30 year old male who comes in today for a Blood Pressure check because of new medication. Vitals as recorded, a large cuff was used. Patient is taking medication as prescribed Patient is tolerating medications well. Patient is not monitoring Blood Pressure at home. Current complaints: none Disposition: results routed to /RUCHI Cantrell MA documented in this encounter Plan of Treatment Not on filedocumented as of this encounter Visit Diagnoses Diagnosis BP check - Primary Screening for hypertension documented in this encounter Care Teams Auto Collision Repair Instructor Relationship Specialty Start Date End Date Carlso Chapman PCP - General Family Practice 02/06/14 04/29/19 MD Saw Aida Hdz, Clinic Assistant Women'S Soccer Coach Ticker Maintainer - 12/12/15 01/21/17 [facility] Clinical documented as of this encounter
--- OUTSIDE RECORDS SUMMARY | 2022-03-31 16:56 | XMS_ITS | Encounter Summary ---
:1985 Author Organization [place] Address [address] [place] [address]. [place] [address] Care Team Providers Name Role Phone Carlos Chapman MD Primary Care Provider [phone] Reason for Visit Reason Comments Clinic Care Coordination - Follow-up Encounter Details Date Type Department Care Team Description 11/13/2015 Care Coordination [facility] Carlos Chapman Care Care Coordination MD Saw Coordination - [address] [place] [address] [facility] Follow-up ( ) [place] [id number] Social History Tobacco Use Types Packs/Day Years Used Date Smoking Tobacco: Never Smokeless Tobacco: Never Alcohol Use Standard Drinks/Week Comments Yes 0 (1 standard drink = 0.6 oz pure alcoho l) 2 mixed drinks, 2-3 days week Sex Assigned at Date Recorded Not on file documented as of this encounter Progress Erlin Olsen - 11/13/2015 12:53 PM CDT Care Coordination Contact Attempt Referral Source: PCP Clinical Data: Refer to CC order. Outreach attempted x 1. Left message on [employer] with call back information and requested return call. SW asking for an update on the BALLISTICS EXPERT FORENSIC assessment and coordinating with an agency. Pt called back stating that he will have the BALLISTICS EXPERT FORENSIC assessment around 11/28/15. Pt stated that he will have PT starting in the coming weeks. Plan: Will attempt to contact in 14-21 business days and await response to message. DENYS Stein, [facility] Social Work - Biochemistry Technician [facility] Therese Perkins michelle Thakkar documented in this encounter Plan of Treatment Not on filedocumented as of this encounter Visit Diagnoses Not on filedocumented in this encounter Care Teams Supplemental Manager Relationship Specialty Start Date End Date Carlos Chapman MD PCP - General Family Practice 02/06/14 04/29/19 documented as of this encounter
--- OUTSIDE RECORDS SUMMARY | 2022-03-31 16:56 | XMS_ITS | Encounter Summary ---
:1985 Author Organization [place] Address [address] [place] [address] Care Team Providers Name Role Phone Carlos Chapman MD Primary Care Provider [phone] Reason for Visit Reason Comments Clinic Care Coordination - Follow-up f/u for IMPROVEMENT NURSE asses sment Encounter Details Date Type Department Care Team Description 12/05/2015 Care Coordination [facility] Carlos Chapman Care Care Coordination MD Saw Coordination - [address] [place] [address] [facility] Follow-up ( f/u for Mica ABAD IMPROVEMENT NURSE assessment) [place] [address] [id number] Social History Tobacco Use Types Packs/Day Years Used Date Smoking Tobacco: Never Smokeless Tobacco: Never Alcohol Use Standard Drinks/Week Comments Yes 0 (1 standard drink = 0.6 oz pure alcoho l) 2 mixed drinks, 2-3 days week Sex Assigned at Date Recorded Not on file documented as of this encounter Progress Notes Aida Hdz - 12/05/2015 10:07 AM CDT Care Coordination Contact Attempt Referral Source: PCP Clinical Data: refer to CC order Outreach attempted x 2. Left message on voicemail with call back information and requested return call. Plan: Will attempt to contact in 5-7 business days and await response to message. Sw will f/u to make sure patient has a successful IMPROVEMENT NURSE assessment and see if he is in need of furtherresources documented in this encounter Plan of Treatment Not on filedocumented as of this encounter Visit Diagnoses Not on filedocumented in this encounter Care Teams Rodeo Clown Relationship Specialty Start Date End Date Carlos Chapman MD PCP - General Family Practice 02/06/14 04/29/19 documented as of this encounter
--- OUTSIDE RECORDS SUMMARY | 2022-03-31 16:56 | XMS_ITS | Encounter Summary ---
:1985 Author Organization [place] Address [facility] [place] [address] Care Team Providers Name Role Phone Carlos Chapman MD Primary Care Provider [phone] Aida Hdz [facility] Unavailable Reason for Visit Reason Onset Date Comments Refill Request 01/03/2016 flonase Encounter Details Date Type Department Care Team Description 01/03/2016 Refill [facility] Carlos Chapman Refill [facility] Anjel Spring MD (flonase) [address] [facility], [address] [place] [address] [address] [place] [address] [place], [place] [phone] (Wo rk) [address] [phone] Social History Tobacco Use Types Packs/Day Years Used Date Smoking Tobacco: Never Smokeless Tobacco: Never Alcohol Use Standard Drinks/Week Comments Yes 0 (1 standard drink = 0.6 oz pure alcoho l) couple drinks per month Sex Assigned at Date Recorded Not on file documented as of this encounter Miscellaneous Notes Telephone Encounter - Maya Wren - 01/03/2016 1:14 PM CDT Flonase Last Written Prescription Date: N/A Last Fill Quantity: 16, # refills: N/A Last Office Visit with [facility] P or [facility] prescribing provider: 12/10/2015 Maya Wren CPhT [facility] [phone] documented in this encounter Plan of Treatment Not on filedocumented as of this encounter Visit Diagnoses Diagnosis Seasonal allergic rhinitis - Primary Allergic rhinitis, cause unspecified documented in this encounter Care Teams City Dispatcher Relationship Specialty Start Date End Date Carlos Chapman PCP - General Family Practice 02/06/14 04/29/19 MD Saw Aida Hdz, Clinic Marketing Sales Manager Belt Picker - 12/12/15 01/21/17 [facility] Clinical documented as of this encounter
--- OUTSIDE RECORDS SUMMARY | 2022-03-31 16:56 | XMS_ITS | Encounter Summary ---
:1985 Author Organization [place] Address [address] [place] [address] Care Team Providers Name Role Phone Carlos Chapman MD Primary Care Provider [phone] Aida Hdz [facility] Unavailable Reason for Visit Rehab Therapy Physical Therapy - Closed Specialty Diagnoses / Procedures Referred By Contact Refer red To Contact Physical Therapy Diagnoses Cisplatin induced neuropathy (H) Polymyalgia (H) [facility] [address] [place] [address] Phone: Fax: Referral ID Status Reason Start Date Expiration Date Visits V isits Requested Authorized [facility] Closed 08/05/2015 05/30/2016 365 38 ([id number]) Encounter Details Date Type Department Care Team Description 01/01/2016 Hospital Encounter [facility] [place] [address] [place] [address] Rehabilitation Services Krystle Boo PT [address] [address] Social History Tobacco Use [...] capsule 12 capsule 1 11/05/201503/18 (VITAMIN D3) 48823 (50,000 Units) by UNITS mouth once a [...] NOT a only Not a prescription, and prescription)[facility] ns: Chronic pain that the patient syndrome, 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 The Muscle spasm, Cancer purpose of this related pain, Medical order is to cannabis use document that the patient reports taking medical cannabis.) documented as of this encounter Progress Notes Krystle Boo, PT - 01/01/2016 10:52 AM CDT AQUATIC PHYSICAL THERAPY EXERCISE LOG (TRUNK) Date? Jayne De Souza, DPT 12/05/15? Krystle Arreolanai PT, DPT 12/11/15? Krystle Boo PT, DPT 12/25/15?? Krystel Boo PT, DPT 01/01/16 Warm Up? Ambulation (Forward/Side/Back/July/)? X 2 f/s/b? X 2 f/s/b??cues for visual fixation, breathing, facil for posture, pt reports brief dizziness following 1 lap which improvedafter cues for breathing? x2 ea cues for looser/softer motions with pt demonstrating tendency to hold himself stiffly?? x2 ea cues for looser/softer motions with pt demonstrating tendency to hold himself stiffly? Stretching/ROM? Chin Tucks? CROM (Flex/Ext/SB/Rot/All)? Shoulder (Shrugs/Rolls)? Scapular (Retraction/Depression)? Upper Trunk (Levator/Scalene/Upper Trapezius)? 30 sec x2 levator scap andupper trap stretchs UE anchored on pool bench ? Pec Stretch (Unilateral/Bilateral)? Posterior Shoulder? Gluteal? 30 sec x 2- cues for hip alignment, modification of ROM? 30 sec x 2- cues for hip alignment, modification of ROM? 30 sec x 2 ? Hamstring (On Step/Cuff)? 30 sec x 2- with noodle and therapist assist? 30 sec x 2-with noodle and therapist assist? 30 sec x 2- with noodle and therapist assist?with gentle hip abd/add for PROM?? 30 sec x 2- with noodle and therapist assist?with gentle hip abd/add for PROM? Calf (In Hole/At Wall)? 30 sec x 2 with limited ROM on the L side? 30 sec x 2? 30 sec x 2? 30 sec x 2? Quad? 30 sec x2 with noodle?? 30 sec x2 with noodle? Hip Flexor (Kneel)? Piriformis (Seated/Stand)? 2x 30 sec ? Trunk ROM (Flex/Ext/SB/Rot/All)? 4x flex/ext reports good stretch to abdomen, cues and facil for neutral cervical alignment? 4x flex/ext reports good stretch to abdomen, ? BAD RAGAZ? Ankle circles clockwise/CCW 5x ea with opposite LE SL standing holding wall [facility]? Ankle circles and pumps 8x ea supported in corner? Strengthening? Abdominal Sets/ Pelvic Tilt? With cues and education on contraction? With cues and facil on contraction? With cues and facil on contraction? Shoulder (Flex/Ext, Abd/Add, IR/ER, Circles, Alternation flex/ext for core)?In wall sit for abdominal tightening 10x B UE flex/ext and abd/add, reports feeling core activation maintaining slower movements with water resistance?? In standing open paddles alternating flex/ext; x8 ea (no circles), encouraging larger/more comfortable ROM ? Horizon (Abd/Add, Diagonals)? (as above)?? (as above) ? Rowing Arms? UE PNF (D1/D2)? Abdominal Sets (Push/Pull, side to side, push down with board)? With ball medium x 10 each? Squat? X 10 with wall support, cues for improved ROM/tolerance ~25 ROM? x8 holding noodle with hip hinges to wall, improved range? x10 holding noodle with hip hinges to wall, improved range? Lunge Squat? Hip (Flex/Ext, Abd/Add, single leg [...] core strengthening? X 10 with colored noodle- BUE? Noodle Push Downs with LE? Stir the Pot/Punches with Dumbells? Sit to Stand at Bench? x10 initially without UE support, reporting L thigh pain, improved matthew with min fingertip touch on bench ? Prone Plank on step? Side Plank on step? Aerobic? Fast Walking? Bike/Ski/Kevin/All? Balance? Narrow Base of Support? Tandem Stand? Single Leg Stance? Heel/Toe Walking? 3 Step and Stop? Braiding? Cool Down? Ambulation? x1? x1?? x1 ? [place] Dangle? Biking in corner x 5 mins? Biking in corner x 5 mins? Biking in corner x 3 mins? Whirlpool? documented in this encounter Plan of Treatment Not on filedocumented as of this encounter Visit Diagnoses Not on filedocumented in this encounter Care Teams Cooling Machine Operator Relationship Specialty Start Date End Date Carlos Chapman PCP - General Family Practice 02/06/14 04/29/19 MD Saw Aida Hdz, Clinic Director Acute Auto Body Service Mechanic - 12/12/15 01/21/17 [facility] Clinical documented as of this encounter
--- OUTSIDE RECORDS SUMMARY | 2022-03-31 16:56 | XMS_ITS | Encounter Summary ---
:1985 Author Organization [place] Address [address] [place] [address] Care Team Providers Name Role Phone Carlos Chapman MD Primary Care Provider [phone] Aida Hdz [facility] Unavailable Reason for Visit Rehab Therapy Physical Therapy - Closed Specialty Diagnoses / Procedures Referred By Contact Refer red To Contact Physical Therapy Diagnoses Cisplatin induced neuropathy (H) Polymyalgia (H) [facility] [address] [place] [address] Phone: Fax: Referral ID Status Reason Start Date Expiration Date Visits V isits Requested Authorized [facility] Closed 08/05/2015 05/30/2016 365 38 ([id number]) Encounter Details Date Type Department Care Team Description 01/20/2016 Hospital Encounter [facility] [place] [address] [place] [address] Rehabilitation Services Kacie Santiago, PT [address] [place], [place] [address] [address] [address] Social History Tobacco Use Types [...] capsule 12 capsule 1 11/05/201503/18 (VITAMIN D3) 45205 (50,000 Units) by UNITS mouth once a week capsuleIndications: Vitamin D deficiency fluticasone (FLONASE) [place] 1-2 sprays 1 Bottle 3 01/03/20 16 [...] on filedocumented in this encounter Care Teams Fisheries Specialist Relationship Specialty Start Date End Date Carlos Chapman PCP - General Family Practice 02/06/14 04/29/19 MD Saw Aida Hdz, Clinic Traditional Maori Health Practitioner Poultry Picker - 12/12/15 01/21/17 [facility] Clinical documented as of this encounter
--- OUTSIDE RECORDS SUMMARY | 2022-03-31 16:56 | XMS_ITS | Encounter Summary ---
:1985 Author Organization [place] Address [address] [place] [address] Care Team Providers Name Role Phone Carlos Chapman MD Primary Care Provider [phone] Reason for Visit Rehab Therapy Physical Therapy - Closed Specialty Diagnoses / Procedures Referred By Contact Refer red To Contact Physical Therapy Diagnoses Cisplatin induced neuropathy (H) Polymyalgia (H) [facility] [address] [place] [address] Phone: Fax: Referral ID Status Reason Start Date Expiration Date Visits V isits Requested Authorized [facility] Closed 08/05/2015 05/30/2016 365 38 ([id number]) Encounter Details Date Type Department Care Team Description 12/11/2015 Hospital Encounter [facility] [place] [address] [place] [address] Rehabilitation Services Krystle Boo, [facility] [address] [place] [address] Social History Tobacco Use [...] capsule 12 capsule 1 11/05/201503/18 (VITAMIN D3) 18763 (50,000 Units) by UNITS mouth once a [...] encounter Progress Notes Krystle Boo, PT - 12/11/2015 9:03 AM CDT AQUATIC PHYSICAL THERAPY EXERCISE LOG (TRUNK) Date? Jayne De Souza, DPT 12/05/15?? Krystle Boo PT, DPT 12/11/15 Warm Up?? Ambulation (Forward/Side/Back/July/All)?? X 2 f/s/b?? X 2 f/s/b??cues for visual fixation, breathing, facil for posture, pt reports brief dizziness following 1 lap which improved after cues for breathing ? Stretching/ROM?? Chin Tucks? CROM (Flex/Ext/SB/Rot/All)? Shoulder (Shrugs/Rolls)? Scapular (Retraction/Depression)? Upper Trunk (Levator/Scalene/Upper Trapezius)? Pec Stretch (Unilateral/Bilateral)? Posterior Shoulder? Gluteal?? 30 sec x 2- cues for hip alignment, modification of ROM? Hamstring (On Step/Cuff)?? 30 sec x 2- with noodle and therapist assist?? 30 sec x 2- with noodleand therapist assist? Calf (In Hole/At Wall)?? 30 sec x 2 with limited ROM on the L side?? 30 sec x 2 ?? Quad? Hip Flexor (Kneel)? Piriformis (Seated/Stand)? Trunk ROM (Flex/Ext/SB/Rot/All)? 4x flex/ext reports good stretch to abdomen, cues and facil for neutral cervical alignment ?? BAD RAGAZ? Ankle circles clockwise/CCW 5x ea with opposite LE SL standing holding wall for support ? Strengthening?? Abdominal Sets/ Pelvic Tilt?? With cues and education on contraction?? With cues andfacil on contraction? Shoulder (Flex/Ext, Abd/Add, IR/ER, Circles, Alternation flex/ext for core)? Horizon (Abd/Add, Diagonals)? Rowing Arms? UE PNF (D1/D2)? Abdominal Sets (Push/Pull, side to side, push down with board)?? With ball medium x 10 each? Squat?? X 10 with wall support, cues for improved ROM/tolerance ~25 ROM?? x8 holding noodle with hip hinges to wall, improved range ?? Lunge Squat? Hip (Flex/Ext, Abd/Add, single leg bike, circles, figure 8, All)?? X 10- Many cues for decreased ROM, no figure 8?? x10 flex/ext, abd/add continued inc cues for small ROM ?? Heel/Toe Raises?? Trialed, but discontinued on L despite modification?? Improved tolerance, B UE assist on wall x10 ?? Step Ups (Forward, Lateral)? Noodle Push Downs with UE(B UE/1 UE) for core strengthening?? X 10 with colored noodle- B UE? Noodle Push Downs with LE? Stir the Pot/Punches with Dumbells? Sit to Stand at Bench? Prone Plank on step? Side Plank on step? Aerobic?? Fast Walking? Bike/Ski/Kevin/All? Balance?? Narrow Base of Support? Tandem Stand? Single Leg Stance? Heel/Toe Walking? 3 Step and Stop? Braiding? Cool Down?? Ambulation? x1 ?? [place] Dangle?? Biking in corner x 5 mins? Whirlpool? documented in this encounter Plan of Treatment Not on filedocumented as of this encounter Visit Diagnoses Not on filedocumented in this encounter Care Teams Moss Bleacher Relationship Specialty Start Date End Date Carlos Chapman MD PCP - General Family Practice 02/06/14 04/29/19 documented as of this encounter
--- OUTSIDE RECORDS SUMMARY | 2022-03-31 16:56 | XMS_ITS | Encounter Summary ---
:1985 Author Organization [address] [place] [address] Care Team Providers Name Role Phone Carlos Chapman MD Primary Care Provider [phone] Aida Hdz Unavailable Reason for Visit Reason Comments Clinic Care Coordination - Follow-up Encounter Details Date Type Department Care Team Description 12/26/2015 Care Coordination [facility] Calros Chapman Care Care Coordination MD Saw Coordination - [address] [place] [address] [facility]-up ( sw) [place] [address] Social History Tobacco Use Types Packs/Day Years Used Date Smoking Tobacco: Never Smokeless Tobacco: Never Alcohol Use Standard Drinks/Week Comments Yes 0 (1 standard drink = 0.6 oz pure alcoho l) couple drinks per month Sex Assigned at Date Recorded Not on file documented as of this encounter Progress Notes Aida Hdz - 12/31/2015 10:22 AM CDT CCSW received completed Prior auth from PCP's team and sent the fax to [facility] [employer] for processing , ,. CCSW called Sasha at [facility] and let her know document had been faxed and to call if follow up was needed. SW will follow up with pt in 1 -2 weeks to check on status of services. SERGE Chavis, NEWSPAPER REPORTER Social Work Talent Partner P:[phone] [facility] Aida Hdz - 12/27/2015 8:44 AM CDT BOBY gave prior auth for MACHINED PARTS QUALITY INSPECTOR services to Dr. Chapman's team for completion. PCP will not be in until Wednesday. SW will follow up Wednesday to check status of prior auth. Included information with prior auth [facility]. [phone] SERGE Chavis, [facility] [place] Social Work Talent Partner P:[phone] [facility] Aida Hdz - 12/26/2015 4:06 PM CDT [facility] MACHINED PARTS QUALITY INSPECTOR services called SW stating they needed a prior auth listing them as the provider for the patient's MACHINED PARTS QUALITY INSPECTOR services before they could start. BOBY called Terrance Ruiz MA and was sent a fax with prior auth for MACHINED PARTS QUALITY INSPECTOR services to be filled out by PCP and faxed back. SW will give to PCPs team Tuesday 12/26 for completion and fax back. Sasha [phone] is contact for [facility] MACHINED PARTS QUALITY INSPECTOR services SERGE Chavis, [facility] [place] Social Work Talent Partner P:[phone] [facility] documented in this encounter Plan of Treatment Not on filedocumented as of this encounter Visit Diagnoses Not on filedocumented in this encounter Care Teams Shift Leader Relationship Specialty Start Date End Date Carlos Chapman PCP - General Family Practice 02/06/14 04/29/19 MD Saw Aida Hdz, Clinic Talent Partner District Superintendent - 12/12/15 01/21/17 [facility] Clinical documented as of this encounter
--- OUTSIDE RECORDS SUMMARY | 2022-03-31 16:56 | XMS_ITS | Encounter Summary ---
:1985 Author Organization [place] Address [address] [facility] [address] Care Team Providers Name Role Phone Carlos Chapman MD Primary Care Provider [phone] Reason for Referral TA Physical Therapy - Closed Specialty Diagnoses / Procedures Referred By Contact Refer red To Contact Diagnoses Peripheral polyneuropathy Status post chemotherapy Bettina Bejarano DO [facility] PAIN CLI [facility] [address] [place] [address] [place] [address] Phone: [phone] Referral ID Status Reason Start Date Expiration Date Visits Requ ested Visits Authorized [id number] Closed 11/13/2015 11/12/2016 1 1 Scheduling Instructions Pool therapy 1-2 times per week for 4-6 weeks. ain Consult - Closed Specialty Diagnoses / Procedures Referred By Contact Refer red To Contact Diagnoses Status post chemotherapy Peripheral polyneuropathy Bettina Bejarano DO [facility] PAIN CLI [facility] [address] [place] [address] [place] [address] Phone: Fax: Referral ID Status Reason Start Date Expiration Date Visits Requ ested Visits Authorized [id number] Closed 11/13/2015 11/12/2016 1 1 Reason for Visit Reason Comments Pain Follow Up Encounter Details Date Type Department Care Team Description 11/13/2015 Office Visit [facility] Bettina Bejarano Statu s post chemotherapy (Primary Dx); Pain Management DO Chronic pain syndrome; [facility] PAIN Peripheral polyneuropathy; [address] [facility] Back muscle spasm [address] [place] [address] [place] [address] [phone] Social History Tobacco Use Types Packs/Day Years Used Date Smoking Tobacco: Never Smokeless Tobacco: Never Alcohol Use Standard Drinks/Week Comments Yes 0 (1 standard drink = 0.6 oz pure alcoho l) 2 mixed drinks, 2-3 days week Sex Assigned at Date Recorded Not on file documented as of this encounter Last Filed Vital Signs Vital Sign Reading Time Taken Comments Blood Pressure 130/92 11/13/2015 10:23 AM CDT Pulse 101 11/13/2015 10:23 AM CDT Temperature - - Respiratory Rate - - Oxygen Saturation 96% 11/13/2015 10:23 AM CDT Inhaled Oxygen Concentration - - Weight 94.3 kg (207 lb 12.8 oz) 11/13/2015 10:23 AM CDT Height - - Body Mass Index 32.55 10/23/2015 1:00 PM CDT documented in this encounter Patient Instructions Patient InstructionsLynda Summers - 11/13/2015 10:25 AM CDT 1. Physical Therapy: Pool therapy 2. Medication Management: VOLCANOLOGY TEACHER reviewed and is appropriate. Continue medical cannabis. Certified by Dr. Gonzalez in [place] last year, but would like to be scheduled within the [place] system. 3. Diagnostic studies: will ask to re-format the CAP CT for lumbar spine -I will call patient with the results and injection plan if appropriate. 4. Follow up: with Dr. Bejarano and the pain clinic as needed. Nurse Triage line: [phone] Call this number with any questions or concerns. You may leave a detailed message anytime. Calls aretypically returned Wednesday through Wednesday between 8 AM and 4:30 PM. We usually get back to you [id number] hours depending on the issue/request. Medication refills: ?? For non-narcotic medications, call your pharmacy directly to request a refill. The pharmacy will contact the [facility] [place] for authorization. Please allow 3-4 days for these refills to be processed. ?? For narcotic refills, call the nurse triage line or send a YuanVt message. Please contact us 7-10 days before your refill is due. The message MUST include the name of the specific medication(s) requested and how you would like to receive the prescription(s). The options are as follows: ?? Pain Clinic staff can mail the prescription to your pharmacy. Please tell us the name of the pharmacy. ?? You may pick the prescription up at the Pain Clinic (tell us the location) or during a clinic visit with your pain provider ?? Pain Clinic staff can deliver the prescription to the [place] pharmacy in the clinic building. Please tell us the location. Scheduling number: [phone]. Call this number to schedule or change appointments. We believe regular attendance is lui to your success in our program. Any time you are unable to keep your appointment we ask that you call us at least 24 hours in advance to let us know. This will allow us to offer the appointment time to another patient. documented in this encounter Progress Notes Bettina Bejarano DO - 11/13/2015 10:18 AM CDT Images from the original note were not included. [facility] Date of visit: 11/12/2014 Chief complaint: No chief complaint on file. Ronn Hinkle is a 30 year old male who presents with the complaints of widespread pain and peripheral neuropathy. Exam shows intact strength, decreased sensation below the knees, diffuse tenderness. Interval history: Ronn Hinkle is a 30 year old male last seen by me on 12/28/14. Since his last visit, Ronn Hinkle reports: -Continued to participate regularly in physical therapy and that went well. Started swimming at the pool. Cold is better than warm for him. He also did yoga. Lost his license and was not able to go to therapy for the past 2 months, and his pain increased especially in his mid back and wraps around histhorax. He took more shallow breaths because breathing would also aggravate the pain. He had an episode of vomiting when the pain was intense. -His pain is described as tightness and cramping everywhere. Hands and feet are the worst. -He is wondering if he can have some shots. He had a chest/abdomen/pelvis CT on 08/07/15. Will ask to format the images for his lumbar spine if the decision is made to pursue injections. He reports occasional back pain. -He will have an assessment for a FINANCIAL RECRUITER in the next week. -Started medical cannabis about a year ago. His forest science professor is Dr. Gonzalez in [place]. His insurance does not cover his appointment with this provider, and he would prefer to be [place]. Medical cannabis provides good pain relief and allows him to participate better with ADL's and therapy, but he has a difficult time affording it. -Went to the chiropractor a couple months ago for back pain. It provided short term relief, but then everything tightened up again. -Has a lot of social stressors related to his ex-. -Stopped taking gabapentin but is not sure why he stopped it. -Has been taking vitamin D. Pain scores: Pain intensity on average is 8 on a scale of 0-10. Current pain treatments: Medical cannabis Past pain treatments: Medications: Acetaminophen opioids - too sedated Baclofen -tired Gabapentin 600-300-600 mg -stopped taking it, unsure why PT: no Acupuncture: no medicare coordinator: tried it -helped TENs Unit: no Injections: lumbar epidural steroid injection at [facility] many years ago -helped for a short while Surgery: left testicle and spine tumor removed in 1998 Side Effects: no side effect Medications: Current Outpatient Prescriptions Medication Sig Dispense Refill ??? cholecalciferol (VITAMIN D3) 66148 UNITS capsule Take 1 capsule (50,000 Units) by mouth once a week 12 capsule 1 ??? ibuprofen (ADVIL,MOTRIN) 200 MG tablet Take 3 tablets (600 mg) by mouth every 6 hours as needed 40 tablet 0 ??? acetaminophen (TYLENOL) 325 MG tablet Take 2 tablets (650 mg) by mouth every 6 hours as needed 40 tablet 0 ? ? alum & mag hydroxide-simethicone (MYLANTA/MAALOX) 200-200-20 MG/5ML SUSP Take 30 mLs by mouth every 4 hours as needed for indigestion 355 mL 0 ??? acetaminophen (TYLENOL) 325 MG tablet Take 2 tablets (650 mg) by mouth every 4 hours as needed 40 tablet 0 ??? ibuprofen (ADVIL,MOTRIN) 200 MG tablet Take 3 tablets (600 mg) by mouth every 6 hours as needed for mild pain 40 tablet 0 ??? fluticasone (FLONASE) 50 MCG/ACT nasal spray 0 ??? medical cannabis oral liquid (Patient's own supply. Not a prescription) 100 mLs (This is NOT a prescription, and does not certify that the patient has a qualifying medical condition for medical cannabis. The purpose of this order is to document that the patient reports taking medical cannabis.) 0 Information only 0 Medical History: any changes in medical history since they were last seen? No Review of Systems: The 14 system ROS was reviewed from the intake questionnaire, and is positive for: headaches, dizziness, vision changes, fatigue Any bowel or bladder problems: no Mood: stable, stress Physical Exam: There were no vitals taken for this visit. General: no acute distress, pleasant, well-groomed Gait: Normal MSK exam: baseline, patchy decreased sensation below the knees bilaterally, full strength Imaging: Cervical MRI completed on 02/13/05 showed: CONCLUSION: Normal MRI of the cervical spine. Lumbar CT completed on 02/18/09 showed: No disc herniation or disc space narrowing Mild right facet arthropathy at L5-S1 with no foraminal stenosis or nerve root impingement. No osteolytic or destructive bone lesion. No retoperitoneal lymphadenopathy and no paraspinous soft tissue mass. Assessment: 1. Chronic widespread pain and overwhelming fatigue related to history of chemotherapy for testicular cancer at age of 13. 2. 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 Polymyalgia 4. Headaches 5. Testicular cancer diagnosed at age 13, in remission. Follow up with oncologist on 04/05/15. 6. Impaired functioning. Disability work completed on 12/05/14. 7. History of low back pain. CT from 2008 shows mild lumbar facet arthropathy. Plan: 1. Physical Therapy: Pool therapy 2. Medication Management: VOLCANOLOGY TEACHER reviewed and is appropriate. Continue medical cannabis. Certified by Dr. Gonzalez in [place] last year, but would like to be certified within the [place] system. 3. Diagnostic studies: will ask to re-format the CAP CT for lumbar spine if the decision is made to pursue lumbar injections if no improvement with pool therapy. 4. Follow up: with Dr. Bejarano and the pain clinic as needed. Total time spent was 30 minutes, and more than 50% of face to face time was spent in counseling and/or coordination of care regarding the above assessment and plan and paperwork for disability. Bettina Bejarano DO [facility] documented in this encounter Nursing Notes Lynda Summers - 11/13/2015 10:25 AM CDT Images from the original note were not included. Chief Complaint Patient presents with ??? Pain Follow Up Initial BP 130/92 mmHg Pulse 101 Wt 94.257 kg (207 lb 12.8 oz) SpO2 96% Estimated body mass index is 32.54 kg/(m^2) as calculated from the following: Height as of 10/23/15: 1.702 m (5' 7). Weight as of this encounter: 94.257 kg (207 lb 12.8 oz). BP completed using cuff size: diamond Summers [facility] documented in this encounter Plan of Treatment Scheduled Referrals Name Type Priority Associated Diagnoses Order S [facility] Referral Routine Status po st chemotherapy Ordered: 11/13/2015 ([facility]) REFERRAL Peripheral polyneurop athy TA PT, HAND, AND Referral Routine Peripheral octavio yneuropathy Ordered: 11/13/2015 CHIROPRACTIC REFERRAL Status post chemoth erapy documented as of this encounter Visit Diagnoses Diagnosis Status post chemotherapy - Primary Convalescence following chemotherapy Chronic pain syndrome Peripheral polyneuropathy Unspecified hereditary and idiopathic pe ripheral neuropathy Back muscle spasm Other symptoms referable to back documented in this encounter Care Teams Translator/Interpreter Relationship Specialty Start Date End Date Carlos Chapman MD PCP - General Family Practice 02/06/14 04/29/19 documented as of this encounter
--- OUTSIDE RECORDS SUMMARY | 2022-03-31 16:56 | XMS_ITS | Encounter Summary ---
:1985 Author Organization [place] Address [address] [facility] [place] [address] Care Team Providers Name Role Phone Carlos Chapman MD Primary Care Provider Aida Hdz [facility] Unavailable Reason for Visit Reason Onset Date Comments Forms 01/07/2016 Resuscitation guidel luis Encounter Details Date Type Department Care Team Description 01/07/2016 Telephone [facility] Carlos Chapman Forms ([facility] Anjel Spring MD guidelines) [address] [facility], [address] [place] [address] [address] [place] [address] [place], [place] [phone] (Wo rk) [address] [phone] Social History Tobacco Use Types Packs/Day Years Used Date Smoking Tobacco: Never Smokeless Tobacco: Never Alcohol Use Standard Drinks/Week Comments Yes 0 (1 standard drink = 0.6 oz pure alcoho l) couple drinks per month Sex Assigned at Date Recorded Not on file documented as of this encounter Miscellaneous Notes Telephone Encounter - Aida Burk - 01/08/2016 10:12 AM CDT Resuscitation Guidelines form completed for [facility]. Copy sent to [employer] and given to RN to update chart. Original mailed in self-addressed envelope provided. Telephone Encounter - Neema Gonzalez - 01/07/2016 5:43 PM CDT Reason for Call: Form, our goal is to have forms completed with 72 hours, however, some forms may require a visit or additional information. Type of letter, form or note: medical Who is the form from?: mail (if other please explain) Where did the form come from: form was mailed in What clinic location was the form placed at?: [facility] Where the form was placed: 's Box What number is listed as a contact on the form?: envelope was enclosed to mail form back Additional comments: n/a Call taken on 01/07/2016 at 5:43 PM by Neema Gonzalez documented in this encounter Plan of Treatment Not on filedocumented as of this encounter Visit Diagnoses Not on filedocumented in this encounter Care Teams Hospice Coordinator Relationship Specialty Start Date End Date Carlos Chapman PCP - General Family Practice 02/06/14 04/29/19 MD Saw Aida Hdz, Clinic Hide Shaker Tankage Supervisor - 12/12/15 01/21/17 [facility] Clinical documented as of this encounter
--- OUTSIDE RECORDS SUMMARY | 2022-03-31 16:56 | XMS_ITS | Encounter Summary ---
:1985 Author Organization [place] Address [address] [place] [address] Care Team Providers Name Role Phone Carlos Chapman MD Primary Care Provider [phone] Aida Hdz [facility] Unavailable Reason for Visit Rehab Therapy Physical Therapy - Closed Specialty Diagnoses / Procedures Referred By Contact Refer red To Contact Physical Therapy Diagnoses Cisplatin induced neuropathy (H) Polymyalgia (H) [facility] [address] [place] [address] Phone: Fax: Referral ID Status Reason Start Date Expiration Date Visits V isits Requested Authorized [facility] Closed 08/05/2015 05/30/2016 365 38 ([id number]) Encounter Details Date Type Department Care Team Description 02/24/[address] [facility] [place] [address] [place] [address] Rehabilitation Services Kacie Santiago, PT [address] [place], [place] [address] [address] [address] Social History Tobacco Use Types [...] capsule 12 capsule 1 11/05/201503/18 (VITAMIN D3) 36820 (50,000 Units) by UNITS mouth once a week capsuleIndications: Vitamin D deficiency fluticasone (FLONASE) [place] 1-2 sprays 1 Bottle 3 01/03/20 16 [...] on filedocumented in this encounter Care Teams Vamp Maker Relationship Specialty Start Date End Date Carlos Chapman PCP - General Family Practice 02/06/14 04/29/19 MD Saw Aida Hdz, Clinic Court Bailiff Or Sheriff Multi Share Program Coordinator - 12/12/15 01/21/17 [facility] Clinical documented as of this encounter
--- OUTSIDE RECORDS SUMMARY | 2022-03-31 16:56 | XMS_ITS | Encounter Summary ---
:1985 Author Organization [place] Address [address] [facility] [place] [address] Care Team Providers Name Role Phone Carlos Chapman MD Primary Care Provider [phone] Aida Hdz [facility] Unavailable Reason for Visit Reason Onset Date Comments Nurse Advice Line 12/30/2015 Disability Parking C ertificate Encounter Details Date Type Department Care Team Description 12/30/2015 Telephone [facility] Nurse Adv ice Line Clinic Anjel Spring MD (Disability Parking [facility], [address] [place] [address] Certificate) [address] [place] [address] [place], [place] [phone] (Wo rk) [address] [phone] Social History Tobacco Use Types Packs/Day Years Used Date Smoking Tobacco: Never Smokeless Tobacco: Never Alcohol Use Standard Drinks/Week Comments Yes 0 (1 standard drink = 0.6 oz pure alcoho l) couple drinks per month Sex Assigned at Date Recorded Not on file documented as of this encounter Miscellaneous Notes Telephone Encounter - Margareth Devries RN - 01/01/2016 2:15 PM CDT Patient notified and placed up at the motel front desk clerk for patient to medicinal plant picker. Copy sent to abstracting. Margareth Devries RN Telephone Encounter - Carlos Chapman MD - 01/01/2016 8:36 AM CDT Form completed. Carlos Chapman MD Telephone Encounter - Margareth Devries RN - 12/31/2015 4:52 PM CDT Form started and placed in Dr. Chapman's in-basket. Margareth Devries RN Telephone Encounter - Astrid Estrada - 12/30/2015 2:26 PM CDT Reason for call: Form-Disability Parking Certificate Patient would like to know if Dr. Chapman would fill out a Disability Parking Certificate, he states he has been having issues getting around. Please call patient at [phone]: Date needed: as soon as possible Patient will medicinal plant picker at the clinic when completed Has the patient signed a consent form for release of information? NO Additional comments: Type of letter, form or note: [employer] Phone Number Pt can be reached at: Home number on file [phone] (home) Best Time: any Can we leave a detailed message on this number? YES documented in this encounter Plan of Treatment Not on filedocumented as of this encounter Visit Diagnoses Not on filedocumented in this encounter Care Teams Chicken Vaccinator Relationship Specialty Start Date End Date Carlos Chapman PCP - General Family Practice 02/06/14 04/29/19 MD Saw Aida Hdz, Clinic Hydro Station Operator Mill Tender Second Operator - 12/12/15 01/21/17 [facility] Clinical documented as of this encounter
--- OUTSIDE RECORDS SUMMARY | 2022-03-31 16:56 | XMS_ITS | Encounter Summary ---
:1985 Author Organization [place] Address [address] [place] [address]. [place] [address] Care Team Providers Name Role Phone Carlos Chapman MD Primary Care Provider [phone] Aida Hdz [facility] Unavailable Reason for Visit Reason Comments Clinic Care Coordination - Follow-up ccsw Encounter Details Date Type Department Care Team Description 02/05/2016 Care Coordination [facility] Carlos Chapman [facility] Care Care Coordination MD Saw Coordination - [address] [place] [address] [facility] ( ccsw) [place] [address] Social History Tobacco Use Types Packs/Day Years Used Date Smoking Tobacco: Never Smokeless Tobacco: Never Alcohol Use Standard Drinks/Week Comments Yes 0 (1 standard drink = 0.6 oz pure alcoho l) couple drinks per month Sex Assigned at Date Recorded Not on file documented as of this encounter Progress Notes Aida Hdz - 02/05/2016 3:12 PM CDT CCCONTA[employer] OUTREACH Additional Information Referral Source: PCP Reason for Referral: Follow up on SLUICE TENDER services Outreach to Pt Functional Status States the SLUICE TENDER services through [facility] are going better than expected and he has benefited from their services greatly. Psychosocial Current living arrangement:: I live in a private home with family Financial/Insurance [employer] [place] Medication Management Asked if manager critical care unit had any resources to pay for medical marijuana. Pt States he purchased a three day supply and by day three felt really good. CCSW stated at this point it was not something insurance can help pay for and new of no resources to help with the cost. Closed to care coordination Discussed with pt that his case will be Close to care coordination at this time since pt states he has no concerns to address. Pt in agreement. Encouraged pt to call in the future if he has any concerns. Aida Hdz, Social Work Industry Operations Investigator, [facility], [facility] P:[phone] [facility] documented in this encounter Plan of Treatment Not on filedocumented as of this encounter Visit Diagnoses Not on filedocumented in this encounter Care Teams Bundle Collector Relationship Specialty Start Date End Date Carlos Chapman PCP - General Family Practice 02/06/14 04/29/19 MD Saw Aida Hdz, Clinic Industry Operations Investigator Controller Instructor - 12/12/15 01/21/17 [facility] Clinical documented as of this encounter
--- OUTSIDE RECORDS SUMMARY | 2022-03-31 16:56 | XMS_ITS | Encounter Summary ---
:1985 Author Organization [place] Address [address] [place] [address] Care Team Providers Name Role Phone Carlos Chapman MD Primary Care Provider [phone] Aida Hdz [facility] Unavailable Reason for Visit Rehab Therapy Physical Therapy - Closed Specialty Diagnoses / Procedures Referred By Contact Refer red To Contact Physical Therapy Diagnoses Cisplatin induced neuropathy (H) Polymyalgia (H) [facility] [address] [place] [address] Phone: Fax: Referral ID Status Reason Start Date Expiration Date Visits V isits Requested Authorized [facility] Closed 08/05/2015 05/30/2016 365 38 ([id number]) Encounter Details Date Type Department Care Team Description 02/17/2016 Hospital Encounter [facility] [place] [address] [facility] [place] [address] Rehabilitation Services Jayne De Souza, PT [address] [facility] [address] [id number] [facility] [address] [place] [address] Social History Tobacco Use [...] capsule 12 capsule 1 11/05/201503/18 (VITAMIN D3) 05105 (50,000 Units) by UNITS mouth once a week capsuleIndications: Vitamin D deficiency fluticasone (FLONASE) [place] 1-2 sprays 1 Bottle 3 01/03/20 16 [...] Progress Notes Jayne De Souza, PT - 02/17/2016 1:29 PM CDT AQUATIC PHYSICAL THERAPY EXERCISE LOG (TRUNK) Date? Jayne De Souza, DPT 12/05/15? Krystle Boo PT, DPT 12/11/15? Krystle Katzmark PT, DPT 12/25/15? Krystle Katmarinamark PT, DPT 01/01/16? Krystle Arreolamark PT, DPT 01/08/16?? Jayne De Souza, DPT 02/17/16 Warm Up? Ambulation (Forward/Side/Back/March/All)? X 2 f/s/b? X 2 f/s/b??cues for visual fixation, breathing, facil for posture, pt reports brief dizziness following 1 lap which improved after cues for breathing? x2 ea cues for looser/softer motions with pt demonstra ting tendency to hold himself stiffly? x2 ea cues for looser/softer motions with pt demonstrating tendency to hold himself stiffly? x2 ea demos continued tendency to hold himself stiffly, but pt reports trying to move more fluidly in the water?? X 2 Each ? Stretching/ROM? Chin Tucks? CROM (Flex/Ext/SB/Rot/All)? Shoulder (Shrugs/Rolls)? Scapular (Retraction/Depression)? Upper Trunk (Levator/Scalene/Upper Trapezius)? 30 secx2?? levator scap and upper trap stretchs UE anchored on pool bench? Pec Stretch (Unilateral/Bilateral)? Posterior Shoulder? Gluteal? 30 sec x 2- cues for hip alignment, modification of ROM? 30 sec x 2- cues for hip alignment, modification of ROM? 30 sec x 2? 30 sec x 2 with active hip ER/cross body IR for mobility with stretchs? 15 sec x 2 B ? Hamstring (On Step/Cuff)? 30 sec x 2- with noodle and therapist assist?30 sec x 2- with noodle and therapist assist? 30 sec x 2- with noodle and therapist assist?with gentle hip abd/add for PROM? 30 sec x 2- with noodle and therapist assist?with gentlehip abd/add for PROM? 30 sec x 2- with noodle with gentle hip abd/add for PROM? 15 sec x 2B ? Calf (In Hole/At Wall)? 30 sec [...] alignment? 4x flex/ext reports good stretch to abdomen,? 4x flex/ext reports good stretch to abdomen,??additional trunk SB with cues for gentle mobility vs sustained holds for improved matthew? BAD RAGAZ? Ankle circles clockwise/CCW 5x ea with opposite LE SL standing holding wall for support? Ankle circles and pumps 8x ea supported in corner? Holding railing along pool wall with B knee tochest feet supported on wall soft flex/ext, pt reports some relief to low back?? Strengthening? Abdominal Sets/ Pelvic Tilt? With cues and education on contraction? With cues and facil on contraction? With cues and facil on contraction? With exercises ? Shoulder (Flex/Ext, Abd/Add, IR/ER, Circles, Alternation flex/ext [...] side, push down with board)? With ball mediumx 10 each? With small board x10 ? Squat? X 10 with wall support, cues for improved ROM/tolerance ~25 ROM?x8 holding noodle with hip hinges to wall, improved range? x10 holding noodle with hip hingesto wall, improved range? x10 holding noodle with hip hinges to wall, improved range cuesfor abdominal tightening? X 10 with noodle and glute taps ? Lunge Squat? Hip (Flex/Ext, Abd/Add, single leg bike, circles, figure 8, All)? X 10- Many cues for decreased ROM, no figure 8? x10 flex/ext, abd/add continued inc cues for small ROM? X 10- continued cues for decreased ROM, no figure 8? X 10 with wall support ? Heel/Toe Raises? Trialed, but discontinued on L despite modification? Improved tolerance, B UE assist on wall x10? Step Ups (Forward, Lateral)? Noodle Push Downs with UE(B UE/1 UE) for core strengthening? X 10 with colored noodle- B UE? X 10 with colored noodle ? Noodle Push Downs with LE? X 10 with colored noodle ? Stir the Pot/Punches with Dumbells? Sit to Stand at Bench? x10 initially without UE support, reporting L thigh pain, improved matthew with min fingertip touch on bench? Prone Plank on step? Side Plank on step? Aerobic? Fast Walking? Bike/Ski/Kevin/All? X 5 mins in corner for gently relaxation ? Balance? Narrow Base of Support? Tandem Stand? Single Leg Stance? Heel/Toe Walking? 3 Step and Stop? Braiding? X 3 mins of gentle relaxation over noodle with hands on wall for unwting ? Cool Down? Ambulation? x1? x1? x1? Selma Dangle? Biking in corner x 5 mins? Biking in cornerx 5 mins? Biking in corner x 3 mins? Biking in corner x 3 mins??, improved matthew smallerranges? Whirlpool? Prior to session (I Prior to session documented in this encounter Plan of Treatment Not on filedocumented as of this encounter Visit Diagnoses Not on filedocumented in this encounter Care Teams Hvac Mechanic Relationship Specialty Start Date End Date Carlos Chapman PCP - General Family Practice 02/06/14 04/29/19 MD Saw Aida Hdz, Clinic Bilingual Call Center Representative Pediatric Dental Hygienist - 12/12/15 01/21/17 [facility] Clinical documented as of this encounter
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
--- OUTSIDE RECORDS SUMMARY | 2022-03-31 16:56 | XMS_ITS | Encounter Summary ---
:1985 Author Organization [place] Address [address] [place] [address] Care Team Providers Name Role Phone Carlos Chapman MD Primary Care Provider [phone] Aida Hdz [facility] Unavailable Reason for Visit Rehab Therapy Physical Therapy - Closed Specialty Diagnoses / Procedures Referred By Contact Refer red To Contact Physical Therapy Diagnoses Cisplatin induced neuropathy (H) Polymyalgia (H) [facility] [address] [place] [address] Phone: Fax: Referral ID Status Reason Start Date Expiration Date Visits V isits Requested Authorized [facility]-PT Closed 08/05/2015 05/30/2016 365 38 ([id number]) Encounter Details Date Type Department Care Team Description 01/13/2016 Hospital Encounter [facility] [place] [address] [place] [address] Rehabilitation Services Kacie Santiago, PT [address] [place], [place] [address] [address] Social History Tobacco Use Types [...] capsule 12 capsule 1 11/05/201503/18 (VITAMIN D3) 71306 (50,000 Units) by UNITS mouth once a week capsuleIndications: Vitamin D deficiency fluticasone (FLONASE) [place] 1-2 sprays 1 Bottle 3 01/03/20 16 [...] medical cannabis.) documented as of this encounter Miscellaneous Notes Addendum Note - Kacie Santiago, PT - 01/20/2016 7:59 AM CDTEncounter addended by: Kacie Santiago, PT on: 01/20/2016 7:59 AM
Documentation filed: Inpatient Document Flowsheet documented in this encounter Plan of Treatment Not on filedocumented as of this encounter Visit Diagnoses Not on filedocumented in this encounter Care Teams Security Clerk Relationship Specialty Start Date End Date Carlos Chapman PCP - General Family Practice 02/06/14 04/29/19 MD Saw Aida Hdz, Clinic Director It Project Homicide Squad Sergeant - 12/12/15 01/21/17 [facility] Clinical documented as of this encounter
--- OUTSIDE RECORDS SUMMARY | 2022-03-31 16:56 | XMS_ITS | Encounter Summary ---
:1985 Author Organization [place] Address [address] [place] [address] Care Team Providers Name Role Phone Carlos Chapman MD Primary Care Provider [phone] Aida Hdz [facility] Unavailable Reason for Visit Reason Comments Pain Encounter Details Date Type Department Care Team Description 12/04/2015 Office Visit [facility] Nilton Medel Chronic pain syndrome (Primary Dx); Clinic Danial Warren MD Cisplatin induced neuropathy (H); [address] [facility] Polymyalgi a (H); [facility] H/O testicular cancer; [place] [phone] Muscle spasm; [phone] [place] [address] Cancer related pain; [place], [place] Medical adarsh abis use [address] Social History Tobacco Use Types Packs/Day Years Used Date Smoking Tobacco: Never Smokeless Tobacco: Never Alcohol Use Standard Drinks/Week Comments Yes 0 (1 standard drink = 0.6 oz pure alcoho l) 2 mixed drinks, 2-3 days week Sex Assigned at Date Recorded Not on file documented as of this encounter Last Filed Vital Signs Vital Sign Reading Time Taken Comments Blood Pressure 150/101 12/04/2015 11:13 AM CDT Pulse 84 12/04/2015 11:13 AM CDT Temperature - - Respiratory Rate - - Oxygen Saturation - - Inhaled Oxygen Concentration - - Weight 93.4 kg (206 lb) 12/04/2015 11:13 AM CDT Height - - Body Mass Index 32.26 10/23/2015 1:00 PM CDT documented in this encounter Patient Instructions Patient InstructionsAlyssa Hernandez - 12/04/2015 11:14 AM CDT I will certify your medical conditions for use of marijuana. - Cancer related pain - Muscle spasm - chronic pain We will continue to verify/certify your conditions for medical marijuana, so long as you continue towork with Dr. Bejarano in the Pain clinic, and also we will insist that you do not use any other controlled substances while you are using medical marijuana. (i.e. Narcotics, benzodiazepines, stimulants, hypnotic sleep meds, etc.) Keep up the good work with your exercising and therapy, there may still be ways/meds that can be tried to help with the neuropathy pain. Nurse Triage line: [phone] Call this number with any questions or concerns. You may leave a detailed message anytime. Calls aretypically returned Wednesday through Wednesday between 8 AM and 4:30 PM. We usually get back to you [id number] hours depending on the issue/request. Medication refills: ?? For non-narcotic medications, call your pharmacy directly to request a refill. The pharmacy will contact the Pain Management Center for authorization. Please allow 3-4 days for these refills to be processed. ?? For narcotic refills, call the nurse triage line or send a [employer] message. Please contact us 7-10 days before [...] staff can deliver the prescription to the [facility] pharmacy in the clinic building. Please tell us the location. Scheduling number: [phone]. Call this number to schedule or change appointments. We believe regular attendance is lui to your success in our program. Any time you are unable to keep your appointment we ask that you call us at least 24 hours in advance to let us know. This will allow us to offer the appointment time to another patient. documented in this encounter Progress Notes Nilton Medel MD - 12/04/2015 11:45 AM CDT Images from the original note were not included. [facility] Date of visit: 12/04/2015 Chief complaint: Chief Complaint Patient presents with ??? Pain Interval history: Ronn Hinkle is a 30 year old male who comes in to discuss signing up with us for medical marijuana. They were last seen by my colleague Dr. Alviia Bejarano; Recommendations/plan at the last visit included: >>> Assessment: 1. Chronic widespread pain and overwhelming [...] Physical Therapy: Pool therapy 2. Medication Management: NEUROSURGICAL PHYSICIAN ASSISTANT reviewed and is appropriate. Continue medical cannabis. Certified by Dr. Gonzalez in [place] last year, but would like to be certified within the [facility] system. 3. Diagnostic studies: will ask to re-format the CAP CT for lumbar spine if the decision is made to pursue lumbar injections if no improvement with pool therapy. 4. Follow up: with Dr. Bejarano and the pain clinic as needed. <<< Since his last visit, Ronn Hinkle reports: 1. He feels like the MJ has helped his pains more than any other treatments he's tried. He has been on the medical marijuana (through [place]; using the syrup or a vaporized liquid; generally using 7-8ml of the syrup which is labeled Tangereine which is more THC than CBD) for the past year; previously prescribed by Dr. Gonzalez in [place], and he recalls the diagnosis was for muscle spasms- which Nathan reports today are a daily/constant problem. 2. When he uses the MJ he has found that it can help him within about 30-45 minutes and last for several hours. He cannot afford to take it daily, but he finds it helps him to tolerate therapy better. He is happy that there are very little side effects; he has never felt high from them, but he does have some increased appetite and weight gain from them. 3. He is presently on disability as he's been unemployed for the past 2 years, but he would like to get back to work to help with his finances. 4. He is looking forward to having lower cost products because he feels he could be more productive if he could take it constantly. Pain scores: Pain intensity on average is 6 on a scale of 0-10. 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 medical cannabis (Patient's own supply. Not a prescription) 1 Dose (This is NOT a prescription, and does not certify that the patient has a qualifying medical condition for medical cannabis. The purpose of this order is to document that the patient reports taking medical cannabis.) 0 Information only 0 ??? cholecalciferol (VITAMIN D3) 40229 UNITS capsule Take 1 capsule (50,000 Units) by mouth once a week 12 capsule 1 ??? ibuprofen (ADVIL,MOTRIN) 200 MG tablet Take 3 tablets (600 mg) by mouth every 6 hours as needed 40 tablet 0 ? ? alum & mag hydroxide-simethicone (MYLANTA/MAALOX) 200-200-20 MG/5ML SUSP Take 30 mLs by mouth every 4 hours as needed for indigestion 355 mL 0 ??? ibuprofen (ADVIL,MOTRIN) 200 MG tablet [...] taking medical cannabis.) 0 Information only 0 ??? acetaminophen (TYLENOL) 325 MG tablet Take 2 tablets (650 mg) by mouth every 6 hours as needed 40 tablet 0 ??? acetaminophen (TYLENOL) 325 MG tablet Take 2 tablets (650 mg) by mouth every 4 hours as needed 40 tablet 0 Medical History: any changes in medical history since they were last seen? N/A Review of Systems: The 14 system ROS was reviewed from the intake questionnaire, and is positive for: headaches, back pain, numbness/tingling, muscle spasm Any bowel or bladder problems: none Mood: same Physical Exam: BP 150/101 mmHg Pulse 84 Wt 93.441 kg (206 lb) Constitutional: alert and no distress. Pt overweight, heavy muscle mass Head: Normocephalic. No masses, lesions, tenderness or abnormalities ENT: EOMI, mucosal surfaces moist. Neck with full ROM, posture poor Cardiovascular: No edema or JVD appreciated. Respiratory: Good diaphragmatic excursion. No wheezes appreciated. Speaking in complete sentences without shortness of breath. No accessory muscle use. Musculoskeletal: extremities normal- no gross deformities noted, normal muscle tone and able to moveabout the exam room without difficulty. Skin: no suspicious lesions or rashes appreciated on exposed areas Neurologic: Gait normal. Moving all extremities spontaneously, no apparent weakness. Psychiatric: mentation appears normal, affect full and good eye contact. Assessment: Ronn was seen today for pain. Diagnoses and all orders for this visit: Chronic pain syndrome Cisplatin induced neuropathy (H) Polymyalgia (H) H/O testicular cancer Muscle spasm Cancer related pain Medical cannabis use Plan: 1. Physical Therapy: Continue with current Pain PT down in [place] 2. Clinical Health Psychologist to address issues of relaxation, behavioral change, coping style, and other factors important to improvement. Continue with current psychology 3. Diagnostic Studies: Consider SCS if needing better relief of BLE neuropathy pain 4. Medication Management: As below; I have taken over certification of his medical MJ 5. Further procedures recommended: deferred to Dr. Bejarano 6. Recommendations to PCP: Defer pain complaints to our clinic for consistent management and guidance 7. Follow up: q 6-12 months for re-certification so long as he remains compliant to below listed restrictions. See Patient Instructions for further details of our treatment plan- which were reviewed by myself with the patient. Patient Instructions I will certify your medical conditions for use of marijuana. - Cancer related pain - Muscle spasm - chronic pain We will continue to verify/certify your conditions for medical marijuana, so long as you continue towork with Dr. Bejarano in the Pain clinic, and also we will insist that you do not use any other controlled substances while you are using medical marijuana. (i.e. Narcotics, benzodiazepines, stimulants, hypnotic sleep meds, etc.) Keep up the good work with your exercising and therapy, there may still be ways/meds that can be tried to help with the neuropathy pain. Nurse Triage line: [phone] Call this number with any questions or concerns. You may leave a detailed message anytime. Calls aretypically returned Wednesday through Wednesday between 8 AM and 4:30 PM. We usually get back to you [id number] hours depending on the issue/request. Medication refills: ?? For non-narcotic medications, call your pharmacy directly to request a refill. The pharmacy will contact the Pain Management Center for authorization. Please allow 3-4 days for these refills to be processed. ?? For narcotic refills, call the nurse triage line or send a [employer] message. Please contact us 7-10 days before [...] staff can deliver the prescription to the [facility] pharmacy in the clinic building. Please tell us the location. Scheduling number: [phone]. Call this number to schedule or change appointments. We believe regular attendance is lui to your success in our program. Any time you are unable to keep your appointment we ask that you call us at least 24 hours in advance to let us know. This will allow us to offer the appointment time to another patient. Total time spent face to face was 40 min. Greater than 50% of the time was spent counseling and/OR coordination of care regarding today's complaints and symptoms and discussing the treatment plan as described immediately above. Signed by Nash Medel M.D. 12:20 PM, 12/04/2015 [facility] documented in this encounter Nursing Notes Alyssa Hernandez - 12/04/2015 11:14 AM CDT Chief Complaint Patient presents with ??? Pain Initial BP 150/101 mmHg Pulse 84 Wt 93.441 kg (206 lb) Estimated body mass index is 32.26 kg/(m^2) as calculated from the following: Height as of 10/23/15: 1.702 m (5' 7). Weight as of this encounter: 93.441 kg (206 lb). 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
--- OUTSIDE RECORDS SUMMARY | 2022-03-31 16:56 | XMS_ITS | Encounter Summary ---
:1985 Author Organization [place] Address [address] [place] [address] Care Team Providers Name Role Phone Carlos Chapman MD Primary Care Provider [phone] Aida Hdz [facility] Unavailable Reason for Visit Rehab Therapy Physical Therapy - Closed Specialty Diagnoses / Procedures Referred By Contact Refer red To Contact Physical Therapy Diagnoses Cisplatin induced neuropathy (H) Polymyalgia (H) [facility] [address] [place] [address] Phone: Fax: Referral ID Status Reason Start Date Expiration Date Visits V isits Requested Authorized [facility] Closed 08/05/2015 05/30/2016 365 38 ([id number]) Encounter Details Date Type Department Care Team Description 02/10/2016 Hospital Encounter [facility] [place] [address] [place] [address] Rehabilitation Services Kacie Santiago, PT [address] [place], [place] [id number] [address] [address] Social History Tobacco Use Types [...] capsule 12 capsule 1 11/05/201503/18 (VITAMIN D3) 89111 (50,000 Units) by UNITS mouth once a week capsuleIndications: Vitamin D deficiency fluticasone (FLONASE) [place] 1-2 sprays 1 Bottle 3 01/03/20 16 [...] on filedocumented in this encounter Care Teams Faculty Criminal Justice Relationship Specialty Start Date End Date Carlos Chapman PCP - General Family Practice 02/06/14 04/29/19 MD Saw Aida Hdz, Clinic Tutoring Manager County Records Management Officer - 12/12/15 01/21/17 [facility] Clinical documented as of this encounter
--- OUTSIDE RECORDS SUMMARY | 2022-03-31 16:56 | XMS_ITS | Encounter Summary ---
:1985 Author Organization [place] Address [address] [place] [address] Care Team Providers Name Role Phone Carlos Chapman MD Primary Care Provider [phone] Aida Hdz [facility] Unavailable Reason for Visit Reason Onset Date Comments Refill Request 02/10/2016 ibuprofen 200mg Encounter Details Date Type Department Care Team Description 02/10/2016 Refill [facility] Carlos Chapman Refill Re [facility] Ariane Spring MD (ibuprofen 200mg) [address] [address] [place] 55 068 [address] [phone] Social History Tobacco Use Types Packs/Day Years Used Date Smoking Tobacco: Never Smokeless Tobacco: Never Alcohol Use Standard Drinks/Week Comments Yes 0 (1 standard drink = 0.6 oz pure alcoho l) couple drinks per month Sex Assigned at Date Recorded Not on file documented as of this encounter Miscellaneous Notes Telephone Encounter - Maya Wren - 02/10/2016 3:33 PM CDT Ibuprofen 200mg Last Written Prescription Date: 10/23/2015 Last Fill Quantity: 40, # refills: 0 Last Office Visit with [facility] or 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
--- OUTSIDE RECORDS SUMMARY | 2022-03-31 16:56 | XMS_ITS | Encounter Summary ---
:1985 Author Organization [place] Address [address] [address] Care Team Providers Name Role Phone Carlos Chapman MD Primary Care Provider [phone] Aida Hdz [facility] Unavailable Reason for Visit Rehab Therapy Physical Therapy - Closed Specialty Diagnoses / Procedures Referred By Contact Refer red To Contact Physical Therapy Diagnoses Cisplatin induced neuropathy (H) Polymyalgia (H) [facility] [address] [place] [address] Phone: Fax: Referral ID Status Reason Start Date Expiration Date Visits V isits Requested Authorized [facility] Closed 08/05/2015 05/30/2016 365 38 ([id number]) Encounter Details Date Type Department Care Team Description 12/25/2015 Hospital Encounter [facility] [place] [address] [place] [address] Rehabilitation Services Krystle Boo PT [address] [address] Social History Tobacco Use [...] capsule 12 capsule 1 11/05/201503/18 (VITAMIN D3) 81724 (50,000 Units) by UNITS mouth once a [...] NOT a only Not a prescription, and prescription)[facility]: Chronic pain that the patient syndrome, 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 The Muscle spasm, Cancer purpose of this related pain, Medical order is to cannabis use document that the patient reports taking medical cannabis.) documented as of this encounter Progress Notes EmaKrystle, PT - 12/25/2015 9:07 AM CDT AQUATIC PHYSICAL THERAPY EXERCISE LOG (TRUNK) Date? Jayne De Souza, DPT 12/05/15? Krystle Ema PT, DPT 12/11/15?? Krystle Boo PT, DPT 12/25/15 Warm Up? Ambulation (Forward/Side/Back/March/All)? X 2 f/s/b? X 2 f/s/b??cues for visual fixation, breathing, facil for posture, pt reports brief dizziness following 1 lap which improved aftercues for breathing?? x2 ea cues for looser/softer motions with pt demonstrating tendency to hold himself stiffly ? Stretching/ROM? Chin Tucks? CROM (Flex/Ext/SB/Rot/All)? Shoulder (Shrugs/Rolls)? Scapular (Retraction/Depression)? Upper Trunk (Levator/Scalene/Upper Trapezius)? Pec Stretch (Unilateral/Bilateral)? Posterior Shoulder? Gluteal? 30 sec x 2- cues for hip alignment, modification of ROM? 30 sec x 2- cues forhip alignment, modification of ROM? Hamstring (On Step/Cuff)? 30 sec x 2- with noodle and therapist assist? 30 sec x 2- with noodle and therapist assist? 30 sec x 2- with noodle and therapist assist?with gentle hip abd/add for PROM ? Calf (In Hole/At Wall)? 30 sec x 2 with limited ROM on the L side? 30 sec x 2?? 30 sec x 2? Quad? 30 sec x2 with noodle ? Hip Flexor (Kneel)? Piriformis (Seated/Stand)? Trunk ROM (Flex/Ext/SB/Rot/All)? 4x flex/ext reports good stretch to abdomen, cues and facil for neutral cervical alignment? BAD RAGAZ? Ankle circles clockwise/CCW 5x ea with opposite LE SL standing holding wall for support?? Ankle circles and pumps 8x ea supported in corner ? Strengthening? Abdominal Sets/ Pelvic Tilt? With cues and education on contraction? With cues and facil on contraction? With cues and facil on contraction? Shoulder (Flex/Ext, Abd/Add, IR/ER, Circles, Alternation flex/ext for core)? In wallsit for abdominal tightening 10x B UE flex/ext and abd/add, reports feeling core activation maintaining slower movements with water resistance ? Horizon (Abd/Add, Diagonals)? (as above) ? Rowing Arms? UE PNF (D1/D2)? Abdominal Sets (Push/Pull, side to side, push down with board)? With ball medium x 10 each? Squat? X 10 with wall support, cues for improved ROM/tolerance ~25 ROM? x8 holding noodlewith hip hinges to wall, improved range?? x10 holding noodle with hip hinges to wall, improved range? Lunge Squat? Hip (Flex/Ext, Abd/Add, single leg bike, circles, figure 8, All)? X 10- Many cues for decreased ROM, no figure 8? x10 flex/ext, abd/add continued inc cues for small ROM?? X 10- continued cues for decreased ROM, no figure 8? Heel/Toe Raises? Trialed, but discontinued on L despite modification? Improved tolerance,B UE assist on wall x10? Step Ups [...] Step and Stop? Braiding? Cool Down? Ambulation? x1?? x1 ? [place] Dangle? Biking in corner x 5 mins? Biking in corner x 5 mins? Whirlpool? documented in this encounter Miscellaneous Notes Addendum Note - Kacie Santiago, PT - 12/30/2015 8:31 AM CDTEncounter addended by: Kacie Santiago, PT on: 12/30/2015 8:31 AM
Documentation filed: Inpatient Document Flowsheet documented in this encounter Plan of Treatment Not on filedocumented as of this encounter Visit Diagnoses Not on filedocumented in this encounter Care Teams Retail Account Representative Relationship Specialty Start Date End Date Carlos Chapman PCP - General Family Practice 02/06/14 04/29/19 MD Saw Aida Hdz, Clinic Chip Crusher Operator Paper Cleaner - 12/12/15 01/21/17 [facility] Clinical documented as of this encounter
--- OUTSIDE RECORDS SUMMARY | 2022-03-31 16:56 | XMS_ITS | Encounter Summary ---
:1985 Author Organization [place] Address [address] [place] [address]. [place] [address] Care Team Providers Name Role Phone Carlos Chapman MD Primary Care Provider [phone] Reason for Visit Reason Comments Clinic Care Coordination - Follow-up Encounter Details Date Type Department Care Team Description 11/27/2015 Care Coordination [facility] Carlos Chapman Care Care Coordination MD Saw Coordination - [address] [place] [id number] [address] Follow-up ( SW) [place] [address] [id number] Social History Tobacco Use Types Packs/Day Years Used Date Smoking Tobacco: Never Smokeless Tobacco: Never Alcohol Use Standard Drinks/Week Comments Yes 0 (1 standard drink = 0.6 oz pure alcoho l) 2 mixed drinks, 2-3 days week Sex Assigned at Date Recorded Not on file documented as of this encounter Progress Notes Erlin Osman - 11/27/2015 2:32 PM CDT Care Coordination Contact Attempt Referral Source: PCP Clinical Data: Spoke to pt who stated that his CABIN SERVICE AGENT assessment is on 11/29/15. Pt asked that SW follow-up next week to follow-up after the assessment. Plan: Will attempt to contact in 3-5 business days. Pt has contact information for immediate concerns. DENYS Stein, SURVEY COORDINATOR Social Work - Oil Driller [facility] [place] documented in this encounter Plan of Treatment Not on filedocumented as of this encounter Visit Diagnoses Not on filedocumented in this encounter Care Teams Security Guard Dispatcher Relationship Specialty Start Date End Date Carlos Chapman MD PCP - General Family Practice 02/06/14 04/29/19 documented as of this encounter
--- OUTSIDE RECORDS SUMMARY | 2022-03-31 16:56 | XMS_ITS | Encounter Summary ---
:1985 Author Organization [place] Address [address] [place] [address] Care Team Providers Name Role Phone Carlos Chapman MD Primary Care Provider [phone] Reason for Visit Reason Comments Forms Encounter Details Date Type Department Care Team Description 12/10/2015 Office Visit [facility] Carlos Chapman Chronic p ain syndrome (Primary Dx); Clinic Anjel Spring MD Cisplatin induced neuropathy (H); [address] [place] [address] Social History Tobacco Use Types Packs/Day Years Used Date Smoking Tobacco: Never Smokeless Tobacco: Never Alcohol Use Standard Drinks/Week Comments Yes 0 (1 standard drink = 0.6 oz pure alcoho l) couple drinks per month Sex Assigned at Date Recorded Not on file documented as of this encounter Last Filed Vital Signs Vital Sign Reading Time Taken Comments Blood Pressure 152/106 12/10/2015 2:43 PM CDT Pulse 110 12/10/2015 2:43 PM CDT Temperature 37.1 ??C (98.7 ??F) 12/10/2015 2:43 PM CDT Respiratory Rate - - Oxygen Saturation 94% 12/10/2015 2:43 PM CDT Inhaled Oxygen Concentration - - Weight 92.1 kg (203 lb) 12/10/2015 2:43 PM CDT Height 170.2 cm (5' 7) 12/10/2015 2:43 PM CDT Body Mass Index 31.79 12/10/2015 2:43 PM CDT documented in this encounter Progress Notes Carlos Chapman MD - 12/10/2015 10:21 AM CDT HPI SUBJECTIVE: Ronn Hinkle is a 30 year old male who presents to clinic today for the following health issues: Patient here to have disability paperwork completed. Restarted pool therapy. Using cannabis for pain, goes to pain clinic regularly. 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 Trying to stay active, can get a fair amount done but needs frequent breaks. Did try to drive for [employer], found it made him really tired and painful afterwards.Had disability paperwork to be filled out. Has Review of Systems Constitutional: Positive for malaise/fatigue. Respiratory: Negative. Cardiovascular: Negative. Musculoskeletal: Positive for myalgias, back pain and joint pain. Physical Exam Constitutional: He is oriented to person, place, and time and well-developed, well-nourished, and inno distress. Eyes: Conjunctivae and EOM are normal. Cardiovascular: Normal rate, regular rhythm and normal heart sounds. Pulmonary/Chest: Effort normal and breath sounds normal. Musculoskeletal: He exhibits no edema. Neurological: He is alert and oriented to person, place, and time. Skin: Skin is warm and dry. Vitals reviewed. (G89.4) Chronic pain syndrome (primary encounter diagnosis) Comment: forms to complete for disability Plan: (G62.0) Cisplatin induced neuropathy (H) Comment: Plan: (I10) Benign essential hypertension Comment: start at 10mg Plan: lisinopril (PRINIVIL,ZESTRIL) 20 MG tablet F/u 2w RTC in 2w Carlos Chapman MD documented in this encounter Nursing Notes Hiral Purcell CMA - 12/10/2015 2:47 PM CDT Chief Complaint Patient presents with ??? Forms Initial BP 152/106 mmHg Pulse 110 Temp(Src) 98.7 ??F (37.1 ??C) (Oral) Ht 5' 7 (1.702 m) Wt203 lb (92.08 kg) BMI 31.79 kg/m2 SpO2 94% Estimated body mass index is 31.79 kg/(m^2) as calculated from the following: Height as of this encounter: 5' 7 (1.702 m). Weight as of this encounter: 203 lb (92.08 kg). 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
--- OUTSIDE RECORDS SUMMARY | 2022-03-31 16:56 | XMS_ITS | Encounter Summary ---
:1985 Author Organization [place] Address [address] [place] [address] Care Team Providers Name Role Phone Carlos Chapman MD Primary Care Provider [phone] Aida Hdz [facility] Unavailable Reason for Visit Rehab Therapy Physical Therapy - Closed Specialty Diagnoses / Procedures Referred By Contact Refer red To Contact Physical Therapy Diagnoses Cisplatin induced neuropathy (H) Polymyalgia (H) [facility] [address] [place] [address] Phone: Fax: Referral ID Status Reason Start Date Expiration Date Visits V isits Requested Authorized [facility] Closed 08/05/2015 05/30/2016 365 38 ([id number]) Encounter Details Date Type Department Care Team Description 02/20/2016 Hospital Encounter [facility] [place] [address] [address] [place] [address] Rehabilitation Services Jayne De Souza, PT [address] [facility] [address] [id number] [facility] [address] [place] [address] Social History Tobacco Use [...] capsule 12 capsule 1 11/05/201503/18 (VITAMIN D3) 79028 (50,000 Units) by UNITS mouth once a week capsuleIndications: Vitamin D deficiency fluticasone (FLONASE) [place] 1-2 sprays 1 Bottle 3 01/03/20 16 [...] Progress Notes Jayne De Souza, PT - 02/20/2016 12:31 PM CDT AQUATIC PHYSICAL THERAPY EXERCISE LOG (TRUNK) Date? Jayne De Souza, DPT 12/05/15? Krystle Katzmark PT, DPT 12/11/15? Krystle Katzmark PT, DPT 12/25/15? Krystle Katzmark PT, DPT 01/01/16? Krystle Arreolamark PT, DPT 01/08/16? Jayne De Souza, DPT 02/17/16?? Jayne De Souza, DPT 02/20/16 Warm Up? Ambulation (Forward/Side/Back/March/All)? X 2 f/s/b? X 2 f/s/b??cues for visual fixation, breathing, facil for posture, pt reports brief dizziness following 1 lap which improved after cues for breathing? x2 ea cues for looser/softer motions with pt d emonstrating tendency to hold himself stiffly? x2 ea cues for looser/softer motions with ptdemonstrating tendency to hold himself stiffly? x2 ea demos continued tendency to hold himself stiffly, but pt reports trying to move more fluidly in the water? X 2 Each?? X 2 Each ? Stretching/ROM? Chin [...] mobility with stretchs? 15 sec x 2 B?? 15 sec x 2 B ? Hamstring (On Step/Cuff)? 30 sec x 2- with noodle and therapist assist? 30 sec x 2- with noodle and therapist assist? 30 sec x 2- with noodle and therapistassist?with gentle hip abd/add for PROM? 30 sec x 2- with noodle and therapist assist?wi th gentle hip abd/add for PROM? 30 sec x 2- with noodle with gentle hip abd/add for PROM? 15 sec x 2 B?? 15 sec x 2 B ? Calf (In Hole/At Wall)? 30 sec x 2 with limited ROM on the L side? 30 sec x 2? 30 sec x 2? 30 sec x 2? 30 sec x 2? 15 sec x 2 B ? Quad? 30 sec x2 with noodle? 30 sec x2 with noodle? 15 sec x 2 B with noodle ? Hip Flexor (Kneel)? Piriformis (Seated/Stand)? 2x [...] with cues for glute sets for gentle stretching Strengthening? Abdominal Sets/ Pelvic Tilt? With cues and education on contraction? With cues and facil on contraction? With cues and facil on contraction? With exercises?? With exercises ? Shoulder (Flex/Ext, Abd/Add, IR/ER, Circles, Alternation flex/ext for core)? In wall sit for abdominal tightening 10x B UE flex/ext and abd/add, reports feeling core activation maintaining slower movements with water resistance? In standing open pa ddles alternating flex/ext; x8 ea (no circles), encouraging larger/more comfortable ROM? In wall sit with open paddles x 10 ? Horizon (Abd/Add, Diagonals)? (as above)? (asabove) ? Rowing Arms? UE PNF (D1/D2)? Abdominal Sets (Push/Pull, side to side, push down with board)? With ball medium x 10 each? With small board x10 ?? With small board x10 ? Squat? X 10 with wall support, cues for improved ROM/tolerance ~25 ROM? x8 holding noodle with hip hinges to wall, improved range? x10 holding noodle with hip hinges to wall, improved range? x10 holding noodle with hip hinges to wall, improved range cues for abdominal tightening? X 10 with noodle and glute taps?? X 10 with noodle and glute taps ? Lunge Squat? Hip (Flex/Ext, Abd/Add, single leg bike, circles, figure 8, All)? X 10- Manycues for decreased ROM, no figure 8? x10 flex/ext, abd/add continued inc cues for small ROM? X 10- continued cues for decreased ROM, no figure 8? X 10 with wall support?? With noodle support for increased balance challenge x 10, small ROM, education on balance training ? Heel/Toe Raises? Trialed, but discontinued on L despite modification? Improved tolerance, B UE assist on wall x10? Step Ups (Forward, Lateral)? Noodle Push Downs with UE(B UE/1 UE) for core strengthening? X 10 with colored noodle- B UE? X 10 with colored noodle?? X 10 with colored noodle ? Noodle Push Downs with LE? X 10with colored noodle?? X 10 with white noodle ? Stir the Pot/Punches with Dumbells? [...] Stop? Braiding? X 3 mins of gentle relaxationover noodle with hands on wall for unwting?? X 3 mins of gentle relaxation over noodle with hands onwall for unwting ? Cool Down? Ambulation? x1? x1? x1? [place] Dangle? Biking in corner x 5 mins? Biking in corner x 5 mins? Biking in corner x 3 mins? Biking in corner x 3 mins??, improvedtol smaller ranges? Whirlpool? Prior to session (I?? Prior to session?? Prior to session documented in this encounter Plan of Treatment Not on filedocumented as of this encounter Visit Diagnoses Not on filedocumented in this encounter Care Teams Security Tester Relationship Specialty Start Date End Date Carlos Chapman PCP - General Family Practice 02/06/14 04/29/19 MD Saw Aida Hdz, Clinic Shirt Maker Machine Slat Basket Maker - 12/12/15 01/21/17 [facility] Clinical documented as of this encounter
--- OUTSIDE RECORDS SUMMARY | 2022-03-31 16:56 | XMS_ITS | Encounter Summary ---
:1985 Author Organization [place] Address [address] [place] [address] Care Team Providers Name Role Phone Arturo Ng MD Primary Care Provider [phone] Aida Hdz [facility] Unavailable Reason for Visit Reason Comments Ear Problem Encounter Details Date Type Department Care Team Description 03/03/2016 Office Visit [facility] Arturo Ng is (Primary Dx); Clinic Anjel Spring MD Chronic pain syndrome; [place] [address], [address] [place], [place] [id number] Social History Tobacco Use Types Packs/Day Years Used Date Smoking Tobacco: Never Smokeless Tobacco: Never Alcohol Use Standard Drinks/Week Comments Yes 0 (1 standard drink = 0.6 oz pure alcoho l) couple drinks per month Sex Assigned at Date Recorded Not on file documented as of this encounter Last Filed Vital Signs Vital Sign Reading Time Taken Comments Blood Pressure 132/98 03/03/2016 9:49 AM CDT Pulse 66 03/03/2016 9:49 AM CDT Temperature 37.3 ??C (99.2 ??F) 03/03/2016 9:49 AM CDT Respiratory Rate 16 03/03/2016 9:49 AM CDT Oxygen Saturation 98% 03/03/2016 9:49 AM CDT Inhaled Oxygen Concentration - - Weight 92.5 kg (204 lb) 03/03/2016 9:49 AM CDT Height 170.2 cm (5' 7) 03/03/2016 9:49 AM CDT Body Mass Index 31.95 03/03/2016 9:49 AM CDT documented in this encounter Progress Notes Arturo Ng MD - 03/03/2016 7:38 AM CDT HPI SUBJECTIVE: Ronn Hinkle is a 30 year old male who presents to clinic today for the following health issues: Ear concern ?? Duration: 1 day ?? Description (location/character/radiation): right ear and along neck and jawline ?? Intensity: severe ?? Accompanying signs and symptoms: neck pain and jaw pain, troubles opening mouth ?? History (similar episodes/previous evaluation): None ?? Precipitating or alleviating factors: worse when opening mouth ?? Therapies tried and outcome: None Also wanting note changed on medication list under the medical marijuana- R neck jaw and neck pain. Over the course of the day moved up to behind ear, now from angle of the jaw to the mastoid area. Pain when opening mouth. Chewing is also painful. Feels hearing in the R ear is less. No congesition, cough. Does hot tub frequently. Given chronic pain is unsure what he could use for pain. Last dental visit two weeks ago, no current teeth issues. Review of Systems Constitutional: Negative for malaise/fatigue. HENT: Positive for ear pain, hearing loss and tinnitus. Negative for congestion and sore throat. Respiratory: Negative. Neurological: Positive for headaches. Physical Exam Constitutional: He is well-developed, well-nourished, and in no distress. HENT: Head: Right Ear: Tympanic membrane, external ear and ear canal normal. Left Ear: Tympanic membrane, external ear and ear canal normal. Mouth/Throat: Oropharynx is clear and moist and mucous membranes are normal. No uvula swelling. Mild tender and swollen over posterior aspect of parotid gland Skin: Skin is warm and dry. Vitals reviewed. (K11.20) Parotiditis (primary encounter diagnosis) Comment: advised to seek ED care if worsening depsite oral abx Plan: clindamycin (CLEOCIN) 150 MG capsule, ciprofloxacin (CIPRO) 500 MG tablet (I10) Benign essential hypertension Comment: past two visits with elevated BP, increase to 20mg Plan: lisinopril (PRINIVIL,ZESTRIL) 20 MG tablet nse BP check in two weeks RTC in Arturo Ng MD documented in this encounter Nursing Notes Hiral Purcell CMA - 03/03/2016 9:54 AM CDT Chief Complaint Patient presents with ??? Ear Problem Initial BP 132/98 mmHg Pulse 66 Temp(Src) 99.2 ??F (37.3 ??C) (Oral) Resp 16 Ht 5' 7 (1.702m) Wt 204 lb (92.534 kg) BMI 31.94 kg/m2 SpO2 98% Estimated body mass index is 31.94 kg/(m^2) as calculated from the following: Height as of this encounter: 5' 7 (1.702 m). Weight as of this encounter: 204 lb (92.534 kg). BP completed using cuff size: large Hiral Purcell CMA documented in this encounter Miscellaneous Notes Addendum Note - Arturo Ng MD - 03/03/2016 10:23 AM CDT Addended by: ARTURO NG on: 03/03/2016 10:23 AM Modules accepted: Orders documented in this encounter Plan of Treatment Not on filedocumented as of this encounter Visit Diagnoses Diagnosis Parotiditis - Primary Sialoadenitis Chronic pain syndrome Benign essential hypertension Essential hypertension, benign documented in this encounter Care Teams Mid Level Business Analyst Relationship Specialty Start Date End Date Arturo Ng PCP - General Family Practice 02/06/14 04/29/19 MD Saw Aida Hdz, Clinic Business Writer Support Services Tech - 12/12/15 01/21/17 [facility] Clinical documented as of this encounter
--- OUTSIDE RECORDS SUMMARY | 2022-03-31 16:56 | XMS_ITS | Encounter Summary ---
:1985 Author Organization [place] Address [address] [place] [address]. [place] [address] Care Team Providers Name Role Phone Carlos Chapman MD Primary Care Provider [phone] Aida Hdz [facility] Unavailable Reason for Visit Reason Comments Clinic Care Coordination - Follow-up sw f/u Encounter Details Date Type Department Care Team Description 12/12/2015 Care Coordination [facility] Carlos Chapman Care Care Coordination MD Saw Coordination - [address] [place] [address] [facility] ( f/u) [place] [id number] Social History Tobacco Use Types Packs/Day Years Used Date Smoking Tobacco: Never Smokeless Tobacco: Never Alcohol Use Standard Drinks/Week Comments Yes 0 (1 standard drink = 0.6 oz pure alcoho l) couple drinks per month Sex Assigned at Date Recorded Not on file documented as of this encounter Progress Notes Aida Hdz - 12/12/2015 10:20 AM CDT Clinic Care Coordination follow up assessment: Gaps identified on last contact: Psychosocial Plan from last contact: 1. Pt will contact the LEVEL VIAL CURVATURE GAUGER agency of his choice to determine if they are taking new patients. ?? 2. Pt will complete assessment with Visiting RNs. 3. SW will plan to follow-up in 5-7 business days, if not contacted prior. Progress: Psychosocial Social work called patient who states that he has called [facility] for his LEVEL VIAL CURVATURE GAUGER assessment and has already completed the assessment nurse practitioner. patient states he is unsure when his services will start and could not remember the amount of hours he is qualified for through his LEVEL VIAL CURVATURE GAUGER services. patient states that he feels like everything is going in the right direction. New Gaps Identified: patient states he has no new concerns at this time but agreed to have social media director f/u in 2 weeks to check on the progress of his LEVEL VIAL CURVATURE GAUGER assessment and see if any further resources are needed. New/Continuing plan: 1.Sw will f/u in two weeks 2. SW will send patient a emergency contact letter per his request to have social media director's new number for his records Aida Hdz, [facility], [facility] Social Work Gas Pump Attendant P:[phone] [facility] documented in this encounter Plan of Treatment Not on filedocumented as of this encounter Visit Diagnoses Not on filedocumented in this encounter Care Teams Furnace Attendant Relationship Specialty Start Date End Date Carlos Chapman PCP - General Family Practice 02/06/14 04/29/19 MD Saw Aida Hdz, Clinic Gas Pump Attendant Cuff Turner Machine Operator - 12/12/15 01/21/17 [facility] Clinical documented as of this encounter
--- NOTE | 2022-03-31 16:57 | ED_ITS ---
HPI - General Adult General Date Seen: 03/31/22 Chief complaint: Urogenital Problems, Male Stated complaint: Testicular pain Time Seen by Provider: 03/31/22 16:02 Source: patient History of Present Illness HPI narrative: Patient is a 36-year-old male who is status post left orchiectomy in 2001 secondary to testicular cancer who has a 1 week history of right testicular pain. He describes it as ?sensitive?, he notices it when he sits and that area is bumped into. He describes the pain as sharp and moderate in intensity. He has not taken any medications for it but he says he generally does not take any medications. 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 He has not had any vomiting. He denies new sexual partners or concerns about exposure to sexually transmitted diseases. He has not noticed any testicular swelling or redness. He has not had any penile discharge or rashes. He denies a history of previous testicular pain. He has not had any trauma to that area. Related Data Allergies Allergy/AdvReac Type Severity Reaction Status Date / Time No Known Drug Allergies Allergy Verified 03/30/22 17:54 Review of Systems Status of ROS: Reports: 10 or more systems reviewed and unremarkable except as noted in History and below [facility] Medical History Due for screening Encounter for postoperative care History of antineoplastic chemotherapy History of stress test Surgical History History of cholecystectomy History of colonoscopy History of esophagogastroduodenoscopy (EGD) Status post orchiectomy Social History Narrative: Marijuana use- medicinal Smoking Status: Never smoker Exam Narrative: Exam Narrative: Vital signs reviewed In general, an alert, nontoxic male. He looks comfortable. Abdomen, soft and nontender. Back: No CVA tenderness. : Left testicle is absent. Right testicles normal appearance without edema or erythema. He has focal tenderness over the epididymis. He does not have specific testicular tenderness on my exam. Testicle itself is not edematous. Skin: Warm dry, well perfused. No visible rashes. Const: Vital Signs, click to edit/add: Vital Signs - 24 hr 03/31/22 13:38 Temperature 97.9 F Pulse Rate [Pulse Oximeter] 86 Respiratory Rate 16 Blood Pressure [Ri ght Upper Arm] 181/102 H Pulse Oximetry 99 Oxygen Delivery Me thod Room Air Documenting provider has reviewed patient's vital signs: yes Course Course Hospital Course: Patient had a urinalysis which was unremarkable and a scrotal ultrasound which is read by Radiology as showing and relatively unremarkable testicle, some microcalcifications which are nonspecific, a normal epididymis and a small hydrocele, no varicocele. Overall fairly unremarkable ultrasound. Clinically, he does have focal tenderness over the epididymis, and I think treatment for epididymitis is reasonable despite significant findings on ultrasound. He certainly could use ibuprofen or Tylenol if you would like for pain, I will prescribe Levaquin. Anticipate improvement over the next several days to week. Primary care follow-up with not improving in that time frame. Return for worsening symptoms such as high fever, vomiting, severe pain, swelling etc.. Vital Signs Vital signs: Initial Vital Signs Temperature 97.9 F 03/31/22 13:38 Temperature Source Temporal Artery Scan 03/31/22 13:38 Pulse Rate 86 03/31/22 13:38 Pulse Rhythm 03/31/22 13:38 Respiratory Rate 16 03/31/22 13:38 Blood Pressure 181/102 H 03/31/22 13:38 Blood Pressure Mean 128 03/31/22 13:38 Blood Pressure Position Sitting 03/31/22 13:38 Pulse Oximetry 99 03/31/22 13:38 Oxygen Delivery Method 03/31/22 13:38 Vital Signs Temperature 97.9 F 03/31/22 13:38 Pulse Rate 86 03/31/22 13:38 Respiratory Rate 16 03/31/22 13:38 Blood Pressure 181/102 H 03/31/22 13:38 Pulse Oximetry 99 03/31/22 13:38 Oxygen Delivery Method 03/31/22 13:38 Temperature 97.9 F 03/31/22 13:38 Pulse Rate 86 03/31/22 13:38 Respiratory Rate 16 03/31/22 13:38 Blood Pressure 181/102 H 03/31/22 13:38 Pulse Oximetry 99 03/31/22 13:38 Oxygen Delivery Method 11/01/22 13:38 Medical Decision Making Lab Data Labs: Lab Results 03/31/22 Range/Units 16:55 Urine Color Yellow (Yellow) Urine Appearance Clear (Clear) Urine pH 5.5 (5.0-8.5) Ur Specific [place] >= 1.030 (1.000-1.030) Urine Protein Negative (Negative) Urine Glucose (UA) Negative (Negative) Urine Ketones Negative (Negative) Urine Blood Negative (Negative) Urine Nitrite Negative (Negative) Urine Bilirubin Negative (Negative) Urine Urobilinogen 0.2 (0.2-1.0) Ur Leukocyte Esterase Negative (Negative) Urine RBC 0-2 (0-2) Urine WBC 0-2 (0-5) Ur Squamous Epith Cells None (None-Few) Urine Bacteria None (None) Discharge Plan Discharge Clinical Impression: Epididymitis Patient Disposition: Home, Self-Care Condition: Stable Instructions: Epididymitis (ED) Additional Instructions: Antibiotics as prescribed. Follow up with your primary doctor if not improving over the next 48 hours. Return for acute worsening such as fever, swelling, vomiting or other worsening symptoms. Follow Up/Referrals: Allison Valentine PA-C [Primary Care Provider] - Stand Alone Forms: [facility] Info Instructions
--- OUTSIDE RECORDS SUMMARY | 2022-03-31 16:57 | XMS_ITS | Encounter Summary ---
:1985 Author Organization [place] Address [facility] [place] [address] Care Team Providers Name Role Phone Carlos Chapman MD Primary Care Provider [phone] Reason for Visit Reason Onset Date Comments Refill Request 06/18/2015 flonase Encounter Details Date Type Department Care Team Description 06/18/2015 Refill [facility] Carlos Chapman Refill [facility] Anjel Spring MD (flonase) [address] [place] [address] [place], [place] [phone] (Wo rk) [phone] [phone] Social History Tobacco Use Types Packs/Day Years Used Date Smoking Tobacco: Never Smokeless Tobacco: Never Alcohol Use Standard Drinks/Week Comments Yes 0 (1 standard drink = 0.6 oz pure alcoho l) 2 mixed drinks, 2-3 days week Sex Assigned at Date Recorded Not on file documented as of this encounter Miscellaneous Notes Telephone Encounter - Margareth Devries RN - 06/18/2015 12:05 PM CST Prescription approved per [facility] Refill Protocol. Margareth Devries RN ICAL LABORATORY MANAGER Telephone Encounter - Joleen Dominguez - 06/18/2015 11:04 AM CST flonase Last Written Prescription Date: 02/05/15 Last Fill Quantity: 16, # refills: 1 Last Office Visit with [facility] primary care provider: 03/19/15 Joleen Dominguez [facility] [phone] ICAL LABORATORY MANAGER documented in this encounter Plan of Treatment Not on filedocumented as of this encounter Visit Diagnoses Diagnosis Chronic rhinitis - Primary documented in this encounter Care Teams Basic Sciences Professor Relationship Specialty Start Date End Date Carlos Chapman MD PCP - General Family Practice 02/06/14 04/29/19 documented as of this encounter
--- OUTSIDE RECORDS SUMMARY | 2022-03-31 16:57 | XMS_ITS | Encounter Summary ---
:1985 Author Organization [place] Address [address] [place] [address]. [place] [address] Care Team Providers Name Role Phone Carlos Chapman MD Primary Care Provider [phone] Reason for Visit Reason Comments Erroneous encounter-disregard Encounter Details Date Type Department Care Team Description 11/06/2015 Care Coordination [facility] Carlos Chapman Care Coordination MD Saw encounter-disregard [address] [place] [phone] [id number] Social History Tobacco Use Types Packs/Day Years Used Date Smoking Tobacco: Never Smokeless Tobacco: Never Alcohol Use Standard Drinks/Week Comments Yes 0 (1 standard drink = 0.6 oz pure alcoho l) 2 mixed drinks, 2-3 days week Sex Assigned at Date Recorded Not on file documented as of this encounter Progress Notes Rachel Mazariegos MSW - 11/07/2015 9:38 AM CDT See note from Chemistry TeacherErlin. documented in this encounter Plan of Treatment Not on filedocumented as of this encounter Visit Diagnoses Not on filedocumented in this encounter Care Teams Petroleum Production Engineer Relationship Specialty Start Date End Date Carlos Chapman MD PCP - General Family Practice 02/06/14 04/29/19 documented as of this encounter
--- OUTSIDE RECORDS SUMMARY | 2022-03-31 16:57 | XMS_ITS | Encounter Summary ---
:1985 Author Organization [place] Address [address] [place] [address] Care Team Providers Name Role Phone Carlos Chapman MD Primary Care Provider [phone] Reason for Visit Rehab Therapy Physical Therapy - Closed Specialty Diagnoses / Procedures Referred By Contact Refer red To Contact Physical Therapy Diagnoses Cisplatin induced neuropathy (H) Polymyalgia (H) [facility] [address] [place] [address] Phone: Fax: Referral ID Status Reason Start Date Expiration Date Visits V isits Requested Authorized [facility] Closed 08/05/2015 05/30/2016 [id number] ([id number]) Encounter Details Date Type Department Care Team Description 08/07/2015 [facility] [place] [address] [place] [address] Cisplatin induced neuropathy (H) (Primar y Dx); Encounter Rehabilitation Kacie Santiago, PT [address] [place], [place] [id number] Polymyalgia (H) Services [address] [address] Social History Tobacco Use Types [...] Sig Dispensed Refills Start Date End Date medical cannabis oral 100 mLs (This is 0 Information 0 liquid (Patient's own NOT a only supply. Not a prescription, and prescription)Indicatio does not certify ns: Polymyalgia (H), that the patient Cisplatin induced has a qualifying neuropathy (H) medical condition for medical cannabis. The purpose of this order is to document that the patient reports taking medical cannabis.) azithromycin Two tablets first 6 tablet 0 07/12/201510/22 (ZITHROMAX) 250 MG day, then one tabletIndications: tablet daily for Acute sinusitis with four days. symptoms > 10 days cholecalciferol Take 1 capsule 12 capsule 1 01/02/201511/04 (VITAMIN D3) 17456 (50,000 Units) by UNITS mouth once a week capsuleIndications: Vitamin D deficiency fluticasone (FLONASE) 0 06/18/201509/2015 50 MCG/ACT nasal spray HYDROcodone-acetaminop Take 1 tablet by 20 tablet 0 016 10/23/2015 hen (NORCO) 5-325 MG mouth 2 times per tabletIndications: daily as needed Acute low back pain for moderate to severe pain predniSONE (DELTASONE) Take 3 tabs (60 20 tablet 0 06/24/19 16 10/23/2015 20 MG mg) orally daily tabletIndications: for 3 days, 2 Bilateral low back tabs (40 mg) pain with left-sided orally daily for sciatica 3 days, 1 tab (20 mg) orally daily for 3 days, then 1/2 tab (10 mg) orally for 3 days documented as of this encounter Progress Notes Kacie Santiago, PT - 08/08/2015 8:29 AM CST 08/07/15 0750 Quick Adds Type of Visit Initial OP PT Evaluation General Information Start of Care Date 08/07/[address] Carlos Chapman Orders Evaluate and Treat as Indicated Additional Orders cancer rehab PT and OT eval and treat Order Date 07/15/15 Medical Diagnosis Cisplatin Induced Neuropathy, Polymyalgia Onset of illness/injury or Date of Surgery 12/25/15 Surgical/Medical history reviewed Yes Pertinent history of current problem Pt with a history of testicular cancer with spinal mets in 1998. He had chemo therapy followed by surgery to remove the tumors - L testical and tumor in Lumbar spine. He did not have radiation. Pt seen by this resume writer last year for cancer rehab. He reports that he slipped on the ice in Apr and landed on his right side and since this time he has had a flare up of symptoms, feeling off being out of alignment He states he has seen the chiropractor and that it helpsbut doesn't last through the day, he tried OPPT at another clinic and went to one visit after the eval and had pain due to the exercises and didn't return. Requested orders from MD to return to this i bernadette. Pt reports that he has continued to exercise and enjoys the pool . He recently has started wtihabdominal strengthening exercises. Prior level of function comment Gradual decline in functional activity tolerance. He has received education regarding time management/energy conservation techniques and he states that these are helpful. 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 Has not been able to work . 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 self employed storage business) Living environment [facility] Home/Community Accessibility Comments 4-5 stairs to enter the home and 18 within the home. Both withone handrail Assistive Devices Comments no AD with gait Patient/Family Goals Statement Pt states he was doing the classes at the [facility]. Fell on the ice on . Saw Chiropractor. Helped but won't stay in place. Went to OPPT did an exercise glide to the left and had horrible pain in lower spine and in between shoulder blades. Goal to picker machine operator where left off before. General Information Comments Exercise routine at [facility] - 15 min walk on the track, stretch for 20 min, holds onto rack in the gym and uses it to assist with stretches for trunk, calf. Goes in to the hottub for 15 min to roll out joints and stretch out, lap pool and swim a couple laps - takes atleast 2hours. States he is so fatgiued at the end of that. Hasn't done YOGA since he took a class that was too much for him killed myself with that . Goes to the gym 2-3 times a week. Fall Risk Screen Fall screen completed by PT Per patient - Fall 2 or more times in past year? No Per patient - Fall with injury in past year? Yes Is patient a fall risk? No Fall screen comments slipped on ice, landed on right side. System Outcome Measures AM-PAC??? Basic Mobility Score Level (Lower scores equate to lower levels of function) 51.77 (stage 3 moving around in doors) AM-PAC??? Daily Activity Score Level (Lower scores equate to lower levels of function) 39.31 (minor difficulties stage 3) AM-PAC??? Applied Cognitive Score Level (Lower scores equate to lower levels of function) 37.45 (stage 2 dailiy tasks are a struggle) Pain Patient currently in pain Yes Pain location central back spot (lumbar area) real tight Pain rating 8/10 Pain description comment sitting still feels like a knife in my back, if I am moving it feels like someone is twisting that knife Pain comments States if he goes to the chiropractor, relaxes he feels good. Pain going down R hip through hip and down L leg and foot like I did before. Lately the last week thumb and pointer twitchinga lot B hands. Pinky and ring finger as well on the left. Taking medical cannibuous still but limited by the cost of it so takes it sparingly. Currently reporting pain in right upper quadrant and states it has been like this intermittently since he fell but has increased in intensity lately felt a Gurgling there last night Pt plans on seeing MD oro this. Pt wincing in pain several times and grabbing this area during the session. Cognitive Status Examination Orientation orientation to person, place and time Level of Consciousness alert Follows Commands and Answers Questions 100% of the time Personal Safety and Judgment intact Cognitive Comment reports that he has decreased memory Integumentary Integumentary Comments scar with adhesions anterior abdominal and Lumbar spine correlating with areaof pain c/o Posture Posture Comments Forward head and shoulders , forward scapula, slight shift of pelvis to the left insitting Standing R ilium higher, greater trochatner R lower and possible rotation posteriorly in thetransverse plane SUpine R ilium and ASIS higher , L leg longer, 86 cm real leg length R and L Range of Motion (ROM) ROM Comment Seated trunk flexion with decreased reversal of lumbar curve - remains in flexion. Sidebend to the R WFL, L with limited flexion through L2-4 . LE shoulder and LE ROM WNL Strength Strength Comments Strong but pain with resisted shouler flesion and abductoin. LE WNL. Decreased endurance limiting tolerance to ADLs Bed Mobility Bed Mobility Comments Independent Transfer Skills Transfer Comments Independent Locomotion Wheel Chair Mobility Comments N/A Gait Gait Comments ambulation without an AD, slower pace, antalgic, decreased wt shift to the right and stiff at pelvis possible vaulting off the L LE Gait Special Tests 25 Foot Timed Walk Seconds 10.9 Steps 16 Steps Comments no device Balance Special Tests Single Leg Stance Right, Right, seconds 6 Seconds Comments states he felt his hip drop Balance Special Tests Single Leg Stance Left Left, seconds 46 Seconds Sensory Examination Sensory Perception Comments neuropathy , decreased sensation hands and feet changes all the time Sometimes my hands are real good. Coordination Coordination Comments WFL Modality Interventions Planned Modality Interventions Comments per therapist discretion. Trialled TENS in the past and pt did not care for this. THought it increased pain Planned Therapy Interventions Planned Therapy Interventions balance training;gait training;joint mobilization;strengthening;stretching;manual therapy (pool PT) Clinical Impression Criteria for Skilled Therapeutic Interventions Met yes, treatment indicated PT Diagnosis decline in functional activity tolerance and QOL APTA Preferred Practice Pattern musculoskeletal Influenced by the following impairments neuropathy, postural impairments, fascial and muscle tightness, knowledge deficit regarding energy conservation, daily management of pain/activities. pain, postural impairments, decreased SLS stance time on the right LE Functional limitations due to impairments inability to tolerate work without increase in symptoms, decreased toelrance to ADLs Rehab Potential good, to achieve stated therapy goals Rehab potential affected by chronic affects of chemo, polymyalgia Therapy Frequency other (see comments) (see below) Predicted Duration of Therapy Intervention (days/wks) 1x a week x 4 weeks land therapy and 1 x a week x 4 weeks pool therapy - ok to occur at same time. Risk & Benefits of therapy have been explained Yes Patient, Family & other staff in agreement with plan of care Yes Clinical Impression Comments Education completed regarding his dx and need to manage the symptoms, finding ways to decrease the symptoms or prevent them from occuring as will not be able to completely reverse them. Education Assessment Preferred Learning Style Listening;Reading;Demonstration;Pictures/video Barriers to Learning Emotional;Physical Goal 1 Goal Identifier 1 Goal Description Nathan to report his pain as 4/10 or less on average to demonstrate pain reduction to allow improved function. Target Date 09/27/15 Goal 2 Goal Identifier 2 Goal Description Nathan to perform SLS on R LE for 20 seconds or greater to demonstrate improved balance and functional hip strength for donning/doffing pants, performance of stairs and improved gait. Target Date 09/27/15 Goal 3 Goal Identifier 3 Goal Description Nathan to ambulate 500 feet without increased c/o of pain to improve his abiltiy to ambulate inside buildings as well as community ambulation (on [facility] reports not able to walk several blocks and a lot of difficulty with gait -50ft in a building) Target Date 09/27/15 Goal 4 Goal Identifier 4 Goal Description Nathan to be independent in HEP for the pool and land to continue to safely address his impairments follwoing d/c from skilled PT Target Date 09/27/15 Total Evaluation Time Total Evaluation Time (Minutes) 36 OPEDIC MECHANIC documented in this encounter Plan of Treatment Scheduled Referrals Name Type Priority Associated Diagnoses Order S [facility] health[facility] PHYSICAL THERAPY Referral Routine Cisplatin induced Ordere d: 07/15/2015 REFERRAL neuropathy Polymyalgia documented as of this encounter Visit Diagnoses Diagnosis 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
--- OUTSIDE RECORDS SUMMARY | 2022-03-31 16:57 | XMS_ITS | Encounter Summary ---
:1985 Author Organization [place] Address [facility] [place] [address] Care Team Providers Name Role Phone Carlos Chapman MD Primary Care Provider [phone] Encounter Details Date Type Department Care Team Description 09/09/2015 Telephone [facility] Kacie Santiago, PT Rehabilitation Services [facility] [address] [facility] [id number] [place] [phone] Social History Tobacco Use Types Packs/Day Years [...] on filedocumented in this encounter Care Teams Commercial Designer Relationship Specialty Start Date End Date Carlos Chapman MD PCP - General Family Practice 02/06/14 04/29/19 documented as of this encounter
--- OUTSIDE RECORDS SUMMARY | 2022-03-31 16:57 | XMS_ITS | Encounter Summary ---
:1985 Author Organization [facility] Address [address] [place] [address] Care Team Providers Name Role Phone Carlos Chapman MD Primary Care Provider [phone] Reason for Visit Rehab Therapy Integrated Services (Routine) - Closed Specialty Diagnoses / Procedures Referred By Contact Refer red To Contact Diagnoses Cancer Rehab PT//Fatigue Neuropathy, -Would prefer on days with other appts [facility] T[facility]MENT [address] [facility] [address] [place], [place] [address] Phone: Fax: Referral ID Status Reason Start Date Expiration Date Visits V isits Requested Authorized [facility]-PT/OT/LEATHER WORKER Closed 01/29/2015 05/30/[phone] ([id number]) Encounter Details Date Type Department Care Team Description 03/07/2015 Hospital Encounter [facility] Olivia Bejarano i, DO [facility] [address] [place], [place] [address] Rehabilitation Services Kacie Santiago, PT [address] [place] [address] [address] Social History Tobacco Use Types [...] cannabis.) cholecalciferol Take 1 capsule 12 capsule 1 01/02/201511/04 (VITAMIN D3) 35553 (50,000 Units) by UNITS mouth once a week capsuleIndications: Vitamin D deficiency DULoxetine (CYMBALTA) Take 1 capsule 30 capsule 0 01/01/2015 03/19/2015 30 MG (30 mg) by mouth capsuleIndications: daily Polymyalgia (H), Muscle stiffness fluticasone (FLONASE) [place] 1-2 sprays 16 g 1 02/06/20 15 06/18/2015 50 MCG/ACT nasal into both sprayIndications: nostrils daily Chronic rhinitis documented as of this encounter Plan of Treatment Not on filedocumented as of this encounter Visit Diagnoses Not on filedocumented in this encounter Care Teams Product Safety Compliance Leader Relationship Specialty Start Date End Date Carlos Chapman MD PCP - General Family Practice 02/06/14 04/29/19 documented as of this encounter
--- OUTSIDE RECORDS SUMMARY | 2022-03-31 16:57 | XMS_ITS | Encounter Summary ---
:1985 Author Organization [facility] Address [address] [place] [address] Care Team Providers Name Role Phone Carlos Chapman MD Primary Care Provider [phone] Reason for Referral Care Coordination - Closed Specialty Diagnoses / Procedures Referred By Contact Refer red To Contact Diagnoses Chronic pain syndrome Polymyalgia (H) Cisplatin induced neuropathy (H) Mic Jc PA-C [address] [place] [address] Referral ID Status Reason Start Date Expiration Date Visits Requ ested Visits Authorized [id number] Closed 11/04/2015 11/03/2016 1 1 ain Consult - Closed Specialty Diagnoses / Procedures Referred By Contact Refer red To Contact Diagnoses Chronic pain syndrome Mic Jc M [facility] PAIN PA-C [facility] [address] [facility] [address] [facility] [place] [address] [address] [place] [address] Phone: Fax: Referral ID Status Reason Start Date Expiration Date Visits Requ ested Visits Authorized [id number] Closed 11/04/2015 11/03/2016 1 1 Reason for Visit Reason Comments ER F/U Blood Draw patient requesting Vit. D le rashad Encounter Details Date Type Department Care Team Description 11/04/2015 Office Visit [facility] Mic Jc pain syndrome (Primary Dx); Clinic [place] DANIKA Gramajo Polymyalgia (H); [place] [address] [address] Cisplatin induced neuropathy (H); Road, [address] [place] [address] Vitamin D deficiency [place], [place] [phone] (Wo rk) [address] [phone] Social History Tobacco Use Types Packs/Day Years Used Date Smoking Tobacco: Never Smokeless Tobacco: Never Alcohol Use Standard Drinks/Week Comments Yes 0 (1 standard drink = 0.6 oz pure alcoho l) 2 mixed drinks, 2-3 days week Sex Assigned at Date Recorded Not on file documented as of this encounter Last Filed Vital Signs Vital Sign Reading Time Taken Comments Blood Pressure 138/80 11/04/2015 11:46 AM CDT Pulse 108 11/04/2015 11:46 AM CDT Temperature 37 ??C (98.6 ??F) 11/04/2015 11:46 AM CDT Respiratory Rate 20 11/04/2015 11:46 AM CDT Oxygen Saturation - - Inhaled Oxygen Concentration - - Weight 93.9 kg (207 lb) 11/04/2015 11:46 AM CDT Height - - Body Mass Index 32.42 10/23/2015 1:00 PM CDT documented in this encounter Progress Notes Mic Jc PA-C - 11/04/2015 10:59 AM CDT HPI SUBJECTIVE: Ronn Hinkle is a 30 year old male who presents to clinic today for the following health issues: ED/UC Followup: Facility: [facility] Date of visit: 10/23/15 Reason for visit: Chronic pain syndrome, nausea Current Status: better, still having the pain all the time. Nathan is here in follow up of an ER visit for nausea and pain. He had come into the office with nauseaand vomiting due to rib pain that he could not control. He was treated with IV fluids, zofran and toradol. He is here today to discuss getting help with obtaining services of a ALTERATION WORKER. He is having a lot of trouble with daily activities around his home involving cleaning, cooking and caring for himself. 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 He applied for a ALTERATION WORKER but he feels that the application process did not go well. The sap basis administrator wasinattentive at best while at his home and deemed services un-needed. He is wanting to pursue optionsto see if he can still get a ALTERATION WORKER to assist with some ADL's. He has an Rx for medical cannabis which helps with the pain but not the function of his hands etc. He has been treated by by Pain Management and in physical therapy. He has stopped going to these appointments due losing his drivers licensebecause of unpaid child support. Problem list and histories reviewed & adjusted, as indicated. Additional history: as documented Problem list, Medication list, Allergies, and Medical/Social/Surgical histories reviewed [facility] andupdated as appropriate. ROS: Constitutional, HEENT, cardiovascular, pulmonary, gi and gu systems are negative, except as otherwise noted. OBJECTIVE: BP 138/80 mmHg Pulse 108 Temp(Src) 98.6 ??F (37 ??C) (Oral) Resp 20 Wt 207 lb (93.895 kg) Body mass index is 32.41 kg/(m^2). GENERAL: healthy, alert and no distress MS: no gross musculoskeletal defects noted, no edema SKIN: no suspicious lesions or rashes PSYCH: mentation appears normal, affect normal/bright Diagnostic Test Results: none ASSESSMENT/PLAN: 1. Chronic pain syndrome Patient agreeable to going back to see Dr. Bejarano who was managing his pain before. He will consult tosee what options may be good again. I agree it is fine to pursue the ALTERATION WORKER but he needs also to be accountable to son degree to get better and take care of himself and his son. - [facility] ([facility]) REFERRAL - CARE COORDINATION REFERRAL 2. Polymyalgia (H) See above. - CARE COORDINATION REFERRAL 3. Cisplatin induced neuropathy (H) See above. - CARE COORDINATION REFERRAL 4. Vitamin D deficiency Recheck and will refill Rx. - Vitamin D Deficiency Mic Jc PA-C [facility] Physical Exam documented in this encounter Nursing Notes Saniya Goetz MA - 11/04/2015 11:48 AM CDT Chief Complaint Patient presents with ??? ER F/U ??? Blood Draw patient requesting Vit. D level Initial BP 138/80 mmHg Pulse 108 Temp(Src) 98.6 ??F (37 ??C) (Oral) Resp 20 Wt 207 lb (93.895 kg) Estimated body mass index is 32.41 kg/(m^2) as calculated from the following: Height as of 16: 5' 7 (1.702 m). Weight as of this encounter: 207 lb (93.895 kg). BP completed using cuff size: large Saniya Goetz MA documented in this encounter Miscellaneous Notes Addendum Note - Mic Jc PA-C - 11/05/2015 3:36 PM CDT Addended by: MIC JC on: 11/05/2015 03:36 PM Modules accepted: Orders documented in this encounter Plan of Treatment Scheduled Referrals Name Type Priority Associated Diagnoses Order S [facility] Referral Routine Chronic pain syndr ome Ordered: 11/04/2015 ([facility]) REFERRAL documented as of this encounter Procedures Procedure Name Priority Date/Time Associated Comments Diagnosis VITAMIN D DEFICIENCY Routine 11/04/2015 12:18 PM Vitamin D Results for this SCREENING CDT deficiency procedure are i n the results section. documented in this encounter Results Vitamin D Deficiency (11/04/2015 12:18 PM CDT) P athologist Signature Vitamin D 24 20 - 75 [facility] Deficiency ug/L [facility] Comment: Season, race, dietary intake, and treatm ent affect the concentration of [id number] D. 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
--- OUTSIDE RECORDS SUMMARY | 2022-03-31 16:57 | XMS_ITS | Encounter Summary ---
:1985 Author Organization [place] Address [facility]ly [facility] [place] [address] Care Team Providers Name Role Phone Carlos Chapman MD Primary Care Provider [phone] Reason for Visit Reason Comments Shortness of Breath Nausea & Vomiting Encounter Details Date Type Department Care Team Description [facility] [address] [address] Chronic pain syndrome; [facility] Emergency Dep Jose Alfredo Elizondo MD [facility] [address] [place] [address] Nausea [address] [place] [address] Social History Tobacco Use Types Packs/Day Years Used Date Smoking Tobacco: Never Smokeless Tobacco: Never Alcohol Use Standard Drinks/Week Comments Yes 0 (1 standard drink = 0.6 oz pure alcoho l) 2 mixed drinks, 2-3 days week Sex Assigned at Date Recorded Not on file documented as of this encounter Last Filed Vital Signs Vital Sign Reading Time Taken Comments Blood Pressure 138/99 10/23/2015 5:02 PM CDT Pulse 100 10/23/2015 5:02 PM CDT Temperature 37 ??C (98.6 ??F) 10/23/2015 5:02 PM CDT Respiratory Rate 16 10/23/2015 5:02 PM CDT Oxygen Saturation 97% 10/23/2015 5:02 PM CDT Inhaled Oxygen Concentration - - Weight 90.7 kg (200 lb) 10/23/2015 1:00 PM CDT Height 170.2 cm (5' 7) 10/23/2015 1:00 PM CDT Body Mass Index 31.32 10/23/2015 1:00 PM CDT documented in this encounter Discharge Instructions Discharge InstructionsJose Alfredo Rehman MD - 10/23/2015 4:44 PM CDT Images from the original note were not included. Chronic Pain Pain of recent onset (???acute pain?? ) serves an important function. It lets you know something is wrong that needs your attention. When the body heals, acute pain goes away. When pain lasts longer than six months, it is called ???chronic pain.?? It may be present even after the body has healed. Chronic pain has both a physical and a psychological component. It may cause low self-esteem, depression and irritability. And, it can interfere with daily activities. Treatment: Chronic pain is treated with a combination of medicines, therapy and lifestyle changes. Medicines may include pain relievers and antidepressants. It is best not to rely on regular use of narcotics for chronic pain. This leads to physical addiction. If narcotics are used at all, they are best limited to acute, breakthrough pain. Medicines used for seizures also help in certain types of chronic pain. Physical Therapy can offer stretching and strengthening activities as well as low-impact exercise. This can reduce certain types of chronic pain. Occupational Therapy teaches you how to do routine tasks of daily living in ways that minimize your discomfort. Psychological Therapy can help you deal with the stress in your life so you feel more at ease. Other Modalities such as meditation, yoga, biofeedback, massage and acupuncture can also help managechronic pain. Lifestyle Habits can affect chronic pain. The following should be part of any chronic pain treatmentplan. ?? Eat healthy ?? Develop an exercise routine ?? Get enough sleep at night ?? Stop smoking and limit alcohol use ?? Start a weight loss program if you are overweight Many patients can be free from chronic pain. But at the very least, you should expect your pain to become less severe, occur less often and interfere less with your daily life. Follow Up with your doctor or as advised by our staff. Let your doctor know if your current treatment plan is successful or if changes are needed. Resources: [place] [employer] www.achenet.org [employer] www.theacpa.org 041-784-3720 ?? [employer]. [address] [place] [address]. All rights reserved. This information is not intended as a substitute for professional medical care. Always follow your healthcare professional's instructions. documented in this encounter Medications at Time [...] cannabis.) ondansetron (ZOFRAN Take 1 tablet (4 20 tablet 0 10/23/2015 10/26/2015 ODT) 4 MG mg) by mouth disintegrating tablet every 6 hours as needed for nausea acetaminophen Take 2 tablets 40 tablet 0 08/07/2015 016 (TYLENOL) 325 MG (650 mg) by mouth tablet every 4 hours as needed cholecalciferol Take 1 capsule 12 capsule 1 01/02/201511/04 (VITAMIN D3) 57297 (50,000 Units) by UNITS mouth once a [...] 6 hours as needed for mild pain documented as of this encounter ED Notes Alka Stoner RN - 10/23/2015 2:47 PM CDT C/O headache with head feeling warm. Temp taken 100.6. tordal given for and Zofran given for continued nausea Jose Alfredo Rehman MD - 10/23/2015 2:00 PM CDT History Chief Complaint: Shortness of Breath and Nausea & Vomiting HPI Ronn Hinkle is a 30 year old male with a history of testicular cancer on medical cannabis who presents to the emergency department today for evaluation of shortness of breath, nausea, and vomiting. The patient stated he has had pain for many years due to his cancer, but stated he is now cancer free. He reports having sternal chest pain and lower right quadrant abdominal pain that radiates into his hip, and then down and across both legs. He reports that the nausea and vomiting is new since being in the ER on 08/07/2015 for a complaint of abdominal pain. Additionally, the patient stated he feels like he is almost going to pass out when vomiting. He also reports feeling short of breath that is relatively constant. The patient received his chemotherapy at [facility]. He stated he is currently taking cannabis which helps alleviate the pain, but does not want any narcotics. Although, he states he just wants the pain to go away. Additionally, the patient reports having a subjective feverand diaphoresis that started last night. He denies any runny nose or a cough that contains blood. Healso denies any changes in bowel habits. 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 Smoking Status: Never Smokeless Tobacco: Never Alcohol Use: Yes, 2 mixed dinks 2-3 days/week Marital Status: Single [1] Review of Systems Constitutional: Positive for fever and diaphoresis. HENT: Negative for rhinorrhea. Respiratory: Positive for shortness of breath. Negative for cough. Cardiovascular: Positive for chest pain (Sternal). Gastrointestinal: Positive for nausea, vomiting and abdominal pain (Lower right quadrant). Negative for diarrhea, constipation and blood in stool. Neurological: Negative for syncope. All other systems reviewed and are negative. Physical Exam First Vitals: BP 138/99 mmHg Pulse 100 Temp(Src) 98.6 ??F (37 ??C) (Oral) Resp 16 Ht 1.702 m (5' 7) Wt 90.719 kg (200 lb) BMI 31.32 kg/m2 SpO2 97% Physical Exam Constitutional: Alert and oriented to person, place and time. In no acute distress HENT: Nose: No nasal congestion No rhinorrhea Mouth: Moist mucous membranes No posterior pharyngeal erythema or edema. Uvula midline. No intraoral lesions. Throat: Tracheal midline No cervical lymphadenopathy Eyes: Pupils equal, round and reactive to light. Extraocular movements are intact. Conjunctiva pink. Sclera anicteric. CV: Regular rate. Regular rhythm. Normal S1, S2. No murmurs, No rubs, No gallops Radial pulses 2+ bilaterally Dorsalis pedis pulses 2+ bilaterally Chest: Good air movement bilaterally Clear to ascultation bilaterally. No wheezing, No rhonchi, No rales. No accessory muscle use. GI: Discomfort to epigastrium and RUQ Soft Non-distended Normal bowel sounds MSK: Normal range of motion of all 4 extremities. Strength is 5/5 in all 4 extremities Neurological: Alert, attentive Skin: Warm, Dry, Normal color Emergency Department Course ECG: ECG taken at 1257, ECG read at 1304 Normal sinus rhythm Normal ECG Rate 99 bpm. CA interval 162. QRS duration 78. QT/QTc 346/444. P-R-T axes 22 0 16. Imaging: Radiology findings were communicated with the patient who voiced understanding of the findings. Chest XR, PA & LAT No acute cardiopulmonary abnormality. Final reading per radiology Laboratory: Laboratory findings were communicated with the patient who voiced understanding of the findings. Lactic acid: 1.3 UA with microscopic: Urine Ketone 5(A), Mucous Urine Present (A) o/w WNL CBC: WBC 13.2 (H) o/w WNL (HGB 16.3, PLT 199) CMP: Glucose 103(H) AWNL (Creatinine 0.98) Lipase: 136 D Dimer (Collected 1320): <0.3 Blood culture: Pending Interventions: 1324 NS 1,000mL IV 1324 Zofran 4mg IV 1436 Toradol 30mg IV 1439 Zofran 4mg IV 1519 Tylenol 1,000mg Oral Emergency Department Course: Nursing notes and vitals reviewed. I performed an exam of the patient as documented above. The patient provided a urine sample here in the emergency department. This was sent for laboratory testing, findings above. IV was inserted and blood was drawn for laboratory testing, results above. The patient was sent for a Chest XR, PA & LAT while in the emergency department, results above. At 1555 the patient was rechecked and was updated on the results of his imaging and laboratory results. The patient states that he is feeling moderately improved after the above interventions. I discussed the treatment plan with the patient. They expressed understanding of this plan and consented to discharge. They will be discharged home with instructions for care and follow up. In addition, the patient will return to the emergency department if their symptoms persist, worsen, if new symptoms arise or if there is any concern. All questions were answered. I personally reviewed the laboratory and imaging results with the patient and answered all related questions prior to discharge. Impression & Plan Medical Decision Making: Ronn Hinkle is a 30 year old male who presents for evaluation of right anterior chest pain and right upper quadrant abdominal pain. The pain has been chronic, at least 3 months and the patient has a history of choric pain. He's been followed by a pain clinic. Since states in the past, he's been able to conduct physical therapy which helped with pain, but recently has had difficulty obtaining a ride to physical therapy. His current pain medication includes cannabis for choric pain as well as Ibuprofen and Acetaminophen. Additionally, he does complain of some nausea associated with the pain. I actually saw this patient previously on 08/07/2015. He has a history of metastatic testicular cancer with spine metastasis; now in remission. To evaluate his chest and abdominal pain on 08/07/2015, I obtained CTchest PE protocol as well as a CT on the pelvis. It showed no acute changes in the chest, abdomen and pelvis to account for the patients symptoms. There was some fluid in the esophagus in the esophogeal thickening. On exam today, the patient's lungs are clear. Heart rate is regular. Abdomen is benign. He has minimal epigastric discomfort and right upper quadrant discomfort. I obtained basic labs including CMP, lactic acid, lipase, CBC was notable for a mild elevation in the white blood cell count at 13.2. D-dimer was negative. Urinalysis was negative. Blood cultures x2 were obtained secondary to his minor fever. I obtained a chest XR 2 views, which was negative for acute pathology. Patient was treated symptomatically with Acetaminophen, Toradol, and Zofran and IV fluids. His symptoms resolved. I explained to him I do not have an etiology of his choric pain, but recommend he follow up with his pain clinic and his primary care physician. At this time, I recommend Acetaminophen forIbuprofen and Zofran for pain and nausea. His condition at the time of discharge is stable. Diagnosis: ICD-10-CM 1. Chronic pain syndrome G89.4 2. Nausea R11.0 Discharge Medications: Zofran ODT Ibuprofen Tylenol Scribe Disclosure: I, Rohan Bere, am serving as a scribe at 3:22 PM on 10/23/2015 to document services personally performed by Jose Alfredo Rehman MD, based on my observations and the provider's statements to me. 10/23/2015 [facility] EMERGENCY DEPARTMENT Jose Alfredo Rehman MD 10/24/15 1341 Buck Marsh MD - 10/23/2015 1:16 PM CDT I saw pt briefly at end of shift. P/w acute on chronic abdominal pain. H/o testicular CA. Sent here from clinic. I spoke with patient briefly in room 15. We agreed on plan to start with labs, IVF, antiemetics, andcomprehensive physician eval to be performed soon by another [facility] provider. Initial orders placed. Buck Marsh MD 10/23/15 1317 Alka Stoner RN - 10/23/2015 1:05 PM CDT Started having pain right side chest abdomen radiating to legs. Also has some vomiting on the way in. Nausea continues. documented in this encounter Plan of Treatment Not on filedocumented as of this encounter Procedures Procedure Name Priority Date/Time Associated Comments Diagnosis XR CHEST 2 VIEWS STAT 10/23/2015 3:45 PM Resul ts for this CDT procedure are i n the results section. BLOOD CULTURE STAT 10/23/2015 3:35 PM Chronic pain Results for this CDT syndrome procedure are i n the results section. LACTIC ACID STAT 10/23/2015 3:24 PM Results f or this CDT procedure are i n the results section. BLOOD CULTURE STAT 10/23/2015 3:24 PM Chronic pain Results for this CDT syndrome procedure are i n the results section. ROUTINE UA WITH STAT 10/23/2015 3:10 PM Result s for this MICROSCOPIC CDT procedure are i n the results section. CBC WITH PLATELETS & STAT 10/23/2015 1:20 PM R esults for this DIFFERENTIAL CDT procedure are i n the results section. LIPASE STAT 10/23/2015 1:20 PM Results f or this CDT procedure are i n the results section. D DIMER QUANTITATIVE Routine 10/23/2015 1:20 PM R esults for this CDT procedure are i n the results section. COMPREHENSIVE STAT 10/23/2015 1:20 PM Results for this METABOLIC PANEL CDT procedure ar e in the results section. EKG 12-LEAD, TRACING STAT 10/23/2015 12:57 Res ults for this ONLY PM CDT procedure are i n the results section. documented in this encounter Results Chest XR, PA & LAT (10/23/2015 3:45 PM CDT) Anatomical Region Laterality Modality Chest Computed Radiography Specimen (Source) Anatomical Location Collection Method / Collectio n Time Received Time / Laterality Volume Impressions 10/23/2015 3:51 PM CDT IMPRESSION: No acute cardiopulmonary abnormality. CLAYTON REN MD Narrative 10/23/2015 3:51 PM CDT XR CHEST 2 VW 10/23/2015 3:45 PM HISTORY: Chest pain. COMPARISON: 01/10/2015 FINDINGS: No airspace consolidation, ple ural effusion or pneumothorax. Stable heart size. Procedure Note Clayton Ren MD - 10/23/2015For matting of this note might be different from the original. XR CHEST 2 VW 10/23/2015 3:45 PM HISTORY: Chest pain. COMPARISON: 01/10/2015 FINDINGS: No airspace consolidation, ple ural effusion or pneumothorax. Stable heart size. IMPRESSION: No acute cardiopulmonary abn ormality. CLAYTON REN MD Jose Alfredo Rehman MD IMG DIAGNOSTIC IMAGING ORDER VANESSA Blood culture ONE site (10/23/2015 3:35 PM CDT) Patholo gist Method Time Signature Specimen Blood Left [facility] Description Hand [facility] Special Aerobic and [place] Requests anaerobic [facility] received Culture Micro No growth [facility] Micro Report FINAL [facility] 10/29/2015 [facility] Specimen Anatomical Collection Method Collection Time Receive d Time (Source) Location / / Volume Laterality Blood specimen 10/23/2015 3:35 PM 016 3:37 (specimen) CDT PM CDT Jose Alfredo Rehman MD LAB - MICRO GENERAL ORDERABL ES Performing Organization Address City/State/ZIP Code Phon e Number [address] [address] [facility] [address] [phone] Lactic acid (10/23/2015 3:24 PM CDT) P athologist Signature Lactic Acid 1.3 0.4 - 2.0 [place] mmol/L [facility] Specimen Anatomical Collection Method Collection Time Receive d Time (Source) Location / / Volume Laterality Blood specimen 10/23/2015 3:24 PM 016 3:34 (specimen) CDT PM CDT Jose Alfredo Rehman MD LAB - BLOOD ORDERABLES Performing Organization Address City/State/ZIP Code Phon e Number [facility] [address] [address] [facility] [address] [place], [place] [address], [facility] [phone] Blood culture ONE site (10/23/2015 3:24 PM CDT) [facility] gist Method Time Signature Specimen Blood Left [facility] Description Arm [facility] Special Aerobic and [place] Requests anaerobic [facility] received Culture Micro No growth [facility] Micro Report FINAL [facility] 10/29/2015 [facility] Specimen Anatomical Collection Method Collection Time Receive d Time (Source) Location / / Volume Laterality Blood specimen 10/23/2015 3:24 PM 016 3:35 (specimen) CDT PM CDT Jose Alfredo Rehman MD LAB - MICRO GENERAL ORDERABL ES Performing Organization Address City/State/ZIP Code Phon e Number [address] [address] [facility] [address] [place], [place] [address], [facility] [phone] (ABNORMAL) UA with Microscopic (10/23/2015 3:10 PM CDT) Component Value Ref Test Analysis Performed At [facility] Range Method Time Signature Color Urine Yellow [facility] Appearance Urine Clear [facility] Glucose Urine Negative NEG [place] mg/dL [facility] Bilirubin Urine Negative NEG [facility] Ketones Urine 5 (A) NEG [place] mg/dL [facility] Specific [place] 1.018 1.003 - [place] Urine 1.035 [facility] Blood Urine Negative NEG [facility] pH Urine 6.0 5.0 - [place] 7.0 pH [facility] Protein Albumin Negative NEG [place] Urine mg/dL [facility] Urobilinogen Normal 0.0 - [place] mg/dL 2.0 [facility] mg/[facility] Nitrite Urine Negative NEG [facility] Leukocyte Negative NEG [place] Esterase Urine [facility] Source Unspecified [facility] WBC Urine 1 0 - 2 [place] /HPF [facility] RBC Urine <1 0 - 2 [place] /[facility] Mucous Urine Present (A) NEG /LPF [facility] Specimen Anatomical Collection Method Collection Time Receive d Time (Source) Location / / Volume Laterality Urine specimen URINE SPECIMEN 10/23/2015 3:10 PM 10/22 3:20 (specimen) OBTAINED BY CLEAN CDT PM CDT CATCH PROCEDURE / Unknown Buck Marsh MD LAB - URINE ORDERABLES Performing Organization Address City/[facility]/ZIP Code Phon e Number M [facility] [address] [place], [place] [address] [facility] [address] [place], [place] [address], [facility] [phone] D dimer quantitative (10/23/2015 1:20 PM CDT) [facility] gist Method Time Signature D Dimer <0.3 0.0 [facility] This D-dimer assay is intended for use i n conjuntion with a clinical pretest 0.50 [facility] probability assessment model to exclude pulmonary embolism (PE) and as an aid ug/ml [facility] in the diagnosis of deep ve nous thrombosis (DVT) in outpatients suspected of PE or DVT. The cut-off value is 0.5??g/mL [facility]. Specimen Anatomical Collection Method Collection Time Receive d Time (Source) Location / / Volume Laterality 10/23/2015 1:20 PM 6 1:32 CDT PM CDT Buck Marsh MD LAB - BLOOD ORDERABLES Performing Organization Address [facility]/ZIP Code Phon e Number M [facility] [address] [place], [place] [address] [facility] [address] [place], [place] [address], [facility] [phone] Lipase (10/23/2015 1:20 PM CDT) athologist Signature Lipase 136 73 - 393 [facility] Specimen Anatomical Collection Method Collection Time Receive d Time (Source) Location / / Volume Laterality Blood specimen 10/23/2015 1:20 PM 016 1:32 (specimen) CDT PM CDT Buck Marsh MD LAB - BLOOD ORDERABLES Performing Organization Address City/[facility]/ZIP Code Phon e Number M [facility] [address] [place], [place] [address] [facility] [address] [place], [place] [address], [facility] [phone] (ABNORMAL) Comprehensive metabolic panel (10/23/2015 1:20 PM CDT) athologist Signature Sodium 139 133 - 144 [place] mmol/L [facility] Potassium 3.4 3.4 - 5.3 [place] mmol/L [facility] Chloride 108 94 - 109 [place] mmol/L [facility] Carbon Dioxide 23 20 - 32 [place] mmol/L [facility] Anion Gap 8 3 - 14 [place] mmol/L [facility] Glucose 103 (H) 70 - 99 [place] mg/dL [facility] Urea Nitrogen 13 7 - 30 [place] mg/dL [facility] Creatinine 0.98 0.66 - [place] 1.25 mg/dL [facility] GFR Estimate 90 >60 [place] mL/min/1.7 [facility] m2 HOSPITAL Comment: Non GFR Calc GFR Estimate If Black >90 >60 mL/min/1.7m2 F [facility] GFR Calc HOSP ITAL Calcium 8.9 8.5 - 10.1 mg/dL [facility] Bilirubin Total 0.9 0.2 - 1.3 mg/dL [facility] Albumin 4.2 3.4 - 5.0 g/dL [facility] Protein Total 7.9 6.8 - 8.8 g/dL [facility] Alkaline Phosphatase 96 40 - 150 U/L [facility] ALT 48 0 - 70 U/L [facility] AST 25 0 - 45 U/L [facility] Specimen Anatomical Collection Method Collection Time Receive d Time (Source) Location / / Volume Laterality Blood specimen 10/23/2015 1:20 PM 016 1:32 (specimen) CDT PM CDT Buck Marsh MD LAB - BLOOD ORDERABLES Performing Organization Address City/State/ZIP Code Phon e Number M [facility] [address] [place], [place] [address] [facility] [address] [place], [place] [address] [phone] (ABNORMAL) CBC with platelets differential (10/23/2015 1:20 PM CDT) [facility] gist Method Time Signature WBC 13.2 (H) 4.0 - [place] 11.[address] RBC Count 5.27 4.4 - 5.9 [place] 10e12/L [facility] Hemoglobin 16.3 13.3 - [place] 17.7 g/dL [facility] Hematocrit 46.2 40.0 - [place] 53.0 % [facility] MCV 88 78 - 100 [facility] MCH 30.9 26.5 - [place] 33.0 pg [facility] MCHC 35.3 31.5 - [place] 36.5 g/dL [facility] RDW 12.8 10.0 - [place] 15.0 % [facility] Platelet Count 199 150 - [address] Diff Method Automated [facility] % Neutrophils 88.7 % [facility] % Lymphocytes 3.8 % [facility] % Monocytes 6.4 % [facility] % Eosinophils 0.4 % [facility] % Basophils 0.3 % [facility] % Immature 0.4 % [place] Granulocytes [facility] Nucleated RBCs 0 0 /100 [facility] Absolute 11.7 (H) 1.6 - 8.3 [place] Neutrophil [address] [place] [address] Absolute 0.5 (L) 0.8 - 5.3 [place] Lymphocytes [address] [place] [address] Absolute 0.8 0.0 - 1.3 [place] Monocytes [address] [place] [address] Absolute 0.1 0.0 - 0.7 [place] Eosinophils [address] [place] [address] Absolute 0.0 0.0 - 0.2 [place] Basophils [address] [place] [address] Abs Immature 0.1 0 - 0.4 [place] Granulocytes [address] [place] [address] Absolute 0.0 [place] Nucleated RBC [facility] Specimen Anatomical Collection Method Collection Time Receive d Time (Source) Location / / Volume Laterality Blood specimen 10/23/2015 1:20 PM 016 1:32 (specimen) CDT PM CDT Buck Marsh MD LAB - BLOOD ORDERABLES Performing Organization Address City/State/ZIP Code Phon e Number [facility] [address] [place], [place] [address] [facility] [address] [place], [place] [address] [facility] [phone] EKG 12 lead (10/23/2015 12:57 PM CDT) [facility] gist Method Time Signature Interpretation ECG Click View RADIOLOGY Image link RESULTS to view waveform and result Specimen (Source) Anatomical Collection Method Collection Time Re ceived Time Location / / Volume Laterality 10/23/2015 12:57 PM CDT Buck Marsh MD ECG ORDERABLES Performing Organization Address City/State/ZIP Code Phon e Number RADIOLOGY RESULTS documented in this encounter Visit Diagnoses Diagnosis Chronic pain syndrome Nausea Nausea alone documented in this encounter Administered Medications Inactive Administered Medications - up to 3 most recent administrations Medication Order MAR Action Action Date Dose Rate Site 0.9% sodium chloride BOLUS New Bag 10/23/2015 1:24 PM CDT 1,000 mLs Intravenous, 1,000 mL, ONCE, On Wed10/23/15 at 1309, For 1 dose acetaminophen (TYLENOL) tablet 1,000 mg Given 10/23/2015 3:19 PM CDT 1,000 mg 1,000 mg, Oral, ONCE, On Wed10/23/15 at 1452, For 1 dose, Maximum acetaminophen dose from all sources = 75 mg/kg/day not to exceed 4 gram ketorolac (TORADOL) injection 30 mg Given 10/23/2015 2:36 PM CDT 30 mg 30 mg, Intravenous, ONCE, On Wed10/23/15 at 1417, For 1 dose ondansetron (ZOFRAN) injection 4 mg Given 10/23/2015 2:39 PM CDT 4 mg 4 mg, Intravenous, EVERY 15 MIN PRN, nausea, vomiting, Administer over 2-5 Minutes, Starting on Wed10/23/15 at 1308, For 2 doses Given 10/23/2015 1:24 PM CDT 4 mg documented in this encounter Active and Recently Administered Medications Times are shown in CDT. Scheduled Medication Order 10/21/2015 10/22/2015 10/23/2015 0.9% sodium chloride BOLUS (COMPLETED) 1324 (New Bag - Provider: Alka Stoner, RN)1554 (Stopped - Provider: Alka Stoner, RN) Intravenous, 1,000 mL, ONCE, Wed10/23/15 at 1309, For 1 dose acetaminophen (TYLENOL) tablet 1,000 mg (COMPLETED) 1519 (Given - Provider: Alka Stoner, RN) 1,000 mg, Oral, ONCE, Wed10/23/15 at 145 2, For 1 dose, Maximum acetaminophen dose from all sources = 75 mg/kg/day not to exceed 4 gram ketorolac (TORADOL) injection 30 mg (COMPLETED) 1436 (Given - Provider: Alka Stoner, BRUCE) 30 mg, Intravenous, ONCE, Wed10/23/15 at 1417, For 1 dose PRN Medication Order 10/21/2015 10/22/2015 10/23/2015 ondansetron (ZOFRAN) injection 4 mg (COMPLETED) 1324 (Given - Provider: Alka Stoner, BRUCE)1439 (Given - Provider: Alka Stoner, BRUCE) 4 mg, Intravenous, EVERY 15 MIN PRN, patrick sea, vomiting, for 2 Minutes, Starting Wed10/23/15 at 1308, For 2 doses documented in this encounter Care Teams Speech Language Pathology Assistant Relationship Specialty Start Date End Date Carlos Chapman MD PCP - General Family Practice 02/06/14 04/29/19 documented as of this encounter
--- OUTSIDE RECORDS SUMMARY | 2022-03-31 16:57 | XMS_ITS | Encounter Summary ---
:1985 Author Organization [place] Address [address] [facility] [place] [address] Care Team Providers Name Role Phone Carlos Chapman MD Primary Care Provider [phone] Reason for Visit Reason Comments Abdominal Pain Encounter Details Date Type Department Care Team Description 10/23/2015 Office Visit [facility] Mic Hester Abdomi nal pain, Clinic [place] DANIKA Gramajo generalized (Primary [address] [place] [address] [facility], [address] [place] [address] [place], [place] [phone] (Wo rk) [address] [phone] Social History Tobacco Use Types Packs/Day Years Used Date Smoking Tobacco: Never Smokeless Tobacco: Never Alcohol Use Standard Drinks/Week Comments Yes 0 (1 standard drink = 0.6 oz pure alcoho l) 2 mixed drinks, 2-3 days week Sex Assigned at Date Recorded Not on file documented as of this encounter Last Filed Vital Signs Vital Sign Reading Time Taken Comments Blood Pressure 126/72 10/23/2015 11:45 AM CDT Pulse 104 10/23/2015 11:45 AM CDT Temperature 37.6 ??C (99.6 ??F) 10/23/2015 11:45 AM CDT Respiratory Rate 20 10/23/2015 11:45 AM CDT Oxygen Saturation - - Inhaled Oxygen Concentration - - Weight 93 kg (205 lb) 10/23/2015 11:45 AM CDT Height - - Body Mass Index 32.11 06/24/2015 1:58 PM MECHANICAL ESTIMATOR documented in this encounter Progress Notes Mic Hester PA-C - 10/23/2015 11:38 AM CDT HPI SUBJECTIVE: Ronn Hinkle is a 30 year old male who presents to clinic today for the following health issues: Abdominal Pain ?? Duration: couple weeks, this morning started to vomit ?? Description (location/character/radiation): past couple weeks have not been able to keep anythingdown, RUQ, LLQ, feels tight all over, Associated flank pain: None ?? Intensity: severe ?? Accompanying signs and symptoms: Fever/Chills: YES Gas/Bloating: YES- Nausea/vomitting: YES Diarrhea: yes Dysuria or Hematuria: no ?? History (previous similar pain/trauma/previous testing): history of cancer ?? Precipitating or alleviating factors: Pain worse with eating/BM/urination: eating, then vomits Pain relieved by BM: no ?? Therapies tried and outcome: None ?? LMP: not applicable Patient here with one day history of vomiting and subjective fever. In clinic just now had diarrhea.Has not taken temp. In quite a bit of pain, LLQ and RUQ. No blood in emesis or diarrhea. Cannot keepfood or water down. No sick contacts that he knows of. PMH sig for testicular cancer. Has chronic pain from this- is on medical marijuana currently. Problem list and histories reviewed & adjusted, as indicated. Additional history: as documented Problem list, Medication list, Allergies, and Medical/Social/Surgical histories reviewed in [facility] andupdated as appropriate. ROS: Constitutional, HEENT, cardiovascular, pulmonary, gi and gu systems are negative, except as otherwise noted. OBJECTIVE: BP 126/72 mmHg Pulse 104 Temp(Src) 99.6 ??F (37.6 ??C) (Oral) Resp 20 Wt 205 lb (92.987 kg) Body mass index is 32.1 kg/(m^2). GENERAL: moderate distress and curled in position on exam table No further exam 10 minutes total with discussion and counselling equal to >%50 of visit. Diagnostic Test Results: none ASSESSMENT/PLAN: 1. Abdominal pain, generalized To ED for eval, labs, IV fluids. Mic Hester PA-C [facility] ROS Physical Exam documented in this encounter Plan of Treatment Not on filedocumented as of this encounter Visit Diagnoses Diagnosis Abdominal pain, generalized - Primary documented in this encounter Care Teams Employment Consultant Relationship Specialty Start Date End Date Carlos Chapman MD PCP - General Family Practice 02/06/14 04/29/19 documented as of this encounter
--- OUTSIDE RECORDS SUMMARY | 2022-03-31 16:57 | XMS_ITS | Encounter Summary ---
:1985 Author Organization [place] Address [address] [place] [address] Care Team Providers Name Role Phone Carlos Chapman MD Primary Care Provider [phone] Reason for Referral Rehab Therapy Physical Therapy - Closed Specialty Diagnoses / Procedures Referred By Contact Refer red To Contact Physical Therapy Diagnoses Cisplatin induced neuropathy (H) Polymyalgia (H) [facility] [address] [place] [address] Phone: Fax: Referral ID Status Reason Start Date Expiration Date Visits V isits Requested Authorized [facility] Closed 08/05/2015 05/30/2016 365 38 ([id number]) E TECHNICIAN Encounter Details Date Type Department Care Team Description 07/15/2015 Orders Only [facility] Carlos Chapman Cisplatin induced neuropathy (Primary Dx); Clinic Anjel Spring MD Polymyalgia [place] [address] [facility], [address] [place] [address] [place], [place] [phone] (Wo rk) [phone] [phone] Social History Tobacco Use Types Packs/Day Years Used Date Smoking Tobacco: Never Smokeless Tobacco: Never Alcohol Use Standard Drinks/Week Comments Yes 0 (1 standard drink = 0.6 oz pure alcoho l) 2 mixed drinks, 2-3 days week Sex Assigned at Date Recorded Not on file documented as of this encounter Plan of Treatment Scheduled Referrals Name Type Priority Associated Diagnoses Order S chedule PHYSICAL THERAPY Referral Routine Cisplatin induced Ordere d: 07/15/2015 REFERRAL neuropathy Polymyalgia documented as of this encounter Visit Diagnoses Diagnosis 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
--- OUTSIDE RECORDS SUMMARY | 2022-03-31 16:57 | XMS_ITS | Encounter Summary ---
:1985 Author Organization [place] Address [address] [place] [address] Care Team Providers Name Role Phone Carlos Chapman MD Primary Care Provider [phone] Reason for Visit Rehab Therapy Integrated Services (Routine) - Closed Specialty Diagnoses / Procedures Referred By Contact Refer red To Contact Diagnoses Cancer Rehab PT//Fatigue Neuropathy, -Would prefer on days with other appts [facility] [address] [facility] [address] [place], [place] [address] Phone: Fax: Referral ID Status Reason Start Date Expiration Date Visits V isits Requested Authorized [facility]/OT/COMMUNICATION LECTURER Closed 01/29/2015 05/30/2015 365 365 ([id number]) Encounter Details Date Type Department Care Team Description 03/14/2015 Hospital Encounter [facility] Olivia Bejarano i, DO [facility] [address] [place], [place] [address] Rehabilitation Services Kacie Santiago, PT [address] [place] [address] [address] Social History Tobacco Use Types [...] capsule 12 capsule 1 01/02/201511/04 (VITAMIN D3) 04662 (50,000 Units) by UNITS mouth once a week capsuleIndications: Vitamin D deficiency DULoxetine (CYMBALTA) Take 1 capsule 30 capsule 0 01/01/2015 03/19/2015 30 MG (30 mg) by mouth capsuleIndications: daily Polymyalgia (H), Muscle stiffness fluticasone (FLONASE) [place] 1-2 sprays 16 g 1 02/06/20 15 06/18/2015 50 MCG/ACT nasal into both sprayIndications: nostrils daily Chronic rhinitis documented as of this encounter Plan of Treatment Not on filedocumented as of this encounter Visit Diagnoses Not on filedocumented in this encounter Care Teams Metal Mine Inspector Relationship Specialty Start Date End Date Carlos Chapman MD PCP - General Family Practice 02/06/14 04/29/19 documented as of this encounter
--- OUTSIDE RECORDS SUMMARY | 2022-03-31 16:57 | XMS_ITS | Encounter Summary ---
:1985 Author Organization [place] Address [address] [place] [address] Care Team Providers Name Role Phone Carlos Chapman MD Primary Care Provider [phone] Reason for Visit Rehab Therapy Integrated Services (Routine) - Closed Specialty Diagnoses / Procedures Referred By Contact Refer red To Contact Diagnoses Cancer Rehab PT//Fatigue Neuropathy, -Would prefer on days with other appts [facility] Procedures TREATMENT [address] [facility] [address] [place], [place] [address] Phone: Fax: Referral ID Status Reason Start Date Expiration Date Visits V isits Requested Authorized [facility]/OT/LEGAL CONTRACTS SPECIALIST Closed 01/29/2015 05/30/2015 365 365 ([id number]) Encounter Details Date Type Department Care Team Description 04/16/2015 Hospital Encounter [facility] Olivia Bejarano i, DO [facility] [address] [place], [place] [address] Rehabilitation Services Kacie Santiago, PT [address] [place] [address] [address] Social History Tobacco Use Types [...] capsule 12 capsule 1 01/02/201511/04 (VITAMIN D3) 98100 (50,000 Units) by UNITS mouth once a week capsuleIndications: Vitamin D deficiency fluticasone (FLONASE) [place] 1-2 sprays 16 g 1 02/06/20 15 06/18/2015 50 MCG/ACT nasal into both sprayIndications: nostrils daily Chronic rhinitis documented as of this encounter Progress Notes Kacie Santiago, PT - 04/19/2015 4:47 AM CST Images from the original note were not included. [facility] OUTPATIENT PHYSICAL THERAPY PLAN OF TREATMENT FOR OUTPATIENT REHABILITATION Patient's Last Name, First Name, M.I. Date of : 1985 HinkleRonn Carter Provider's Name [facility] Onset Date: 12/03/14 - date of order Start of Care Date: 12/05/14 Type: _X_PT ___OT ___SLP Medical Diagnosis: fatigue, neuropathy, history of Testicular cancer PT Diagnosis: decline in functional activity tolerance and quality of life with history of polymyalgia and medical dx as noted _ Plan of Treatment: Frequency/Duration: 1 x a week every other week for 10 weeks Goals: PLease refer to daily documentation. Nathan is making slow steady progress to all his goals. Anticipateprogression to be gradual. Pt will benefit from further skilled PT intervention with therapeutic and manual focus. Certification date from 04/19/15 to 06/28/15. Kacie Santiago PT I CERTIFY THE NEED FOR THESE SERVICES FURNISHED UNDER THIS PLAN OF TREATMENT AND WHILE UNDER MY CARE (Physician co-signature of this document indicates review and certification of the therapy plan). Referring Provider: Dr. Bettina Bejarano OELECTRIC PLANT OPERATOR Associated attestation - Bettina Bejarano DO - 04/19/2015 9:43 AM HYDROELECTRIC PLANT OPERATOR Physician Attestation I agree with the information in this note. Bettina Bejarano DO documented in this encounter Miscellaneous Notes Addendum Note - Kacie Santiago PT - 04/19/2015 4:55 AM CSTEncounter addended by: Kacie Santiago PT on: 04/19/2015 4:55 AM
Documentation filed: Notes Section, Clinical Notes OELECTRIC PLANT OPERATOR documented in this encounter Plan of Treatment Not on filedocumented as of this encounter Visit Diagnoses Not on filedocumented in this encounter Care Teams Corrections Specialist Relationship Specialty Start Date End Date Carlos Chapman MD PCP - General Family Practice 02/06/14 04/29/19 documented as of this encounter
--- OUTSIDE RECORDS SUMMARY | 2022-03-31 16:57 | XMS_ITS | Encounter Summary ---
:1985 Author Organization [place] Address [address] [place] [address] Care Team Providers Name Role Phone Carlos Chapman MD Primary Care Provider [phone] Reason for Visit Rehab Therapy Integrated Services (Routine) - Closed Specialty Diagnoses / Procedures Referred By Contact Refer red To Contact Diagnoses Cancer Rehab PT//Fatigue Neuropathy, -Would prefer on days with other appts [facility] Procedures TREATMENT [address] [facility] [address] [place], [place] [address] Phone: Fax: Referral ID Status Reason Start Date Expiration Date Visits V isits Requested Authorized [facility]-PT/OT/CONTROL ROOM OPERATOR Closed 01/29/2015 05/30/2015 365 365 ([id number]) Encounter Details Date Type Department Care Team Description 03/21/2015 Hospital Encounter [facility] Olivia Bejarano i, DO [facility] [address] [place], [place] [address] Rehabilitation Services Kacie Santiago, PT [address] [place] [address] [address] Social History Tobacco Use Types [...] capsule 12 capsule 1 01/02/201511/04 (VITAMIN D3) 51998 (50,000 Units) by UNITS mouth once a week capsuleIndications: Vitamin D deficiency fluticasone (FLONASE) [place] 1-2 sprays 16 g 1 02/06/20 15 06/18/2015 50 MCG/ACT nasal into both sprayIndications: nostrils daily Chronic rhinitis documented as of this encounter Plan of Treatment Not on filedocumented as of this encounter Visit Diagnoses Not on filedocumented in this encounter Care Teams Reimbursement Counselor Relationship Specialty Start Date End Date Carlos Chapman MD PCP - General Family Practice 02/06/14 04/29/19 documented as of this encounter
--- OUTSIDE RECORDS SUMMARY | 2022-03-31 16:57 | XMS_ITS | Encounter Summary ---
:1985 Author Organization [place] Address [address] [place] [address] Care Team Providers Name Role Phone Carlos Chapman MD Primary Care Provider [phone] Reason for Visit Reason Onset Date Comments Nurse Advice Line 11/11/2015 Please call back maureen Fink note to get his [place] driver's license doug k to get to physical therapy. Encounter Details Date Type Department Care Team Description 11/11/2015 [facility] ( Clinic [place] DANIKA Gramajo Please call back [phone] [facility] [place], [address] [facility] A[facility] Patient MARANDA, need [address] [place] [address] note to get his [place], [place] [phone] (Wo rk) [place] driver's license back [phone] to get to physical [phone] therapy. ) Social History Tobacco Use Types Packs/Day Years Used Date Smoking Tobacco: Never Smokeless Tobacco: Never Alcohol Use Standard Drinks/Week Comments Yes 0 (1 standard drink = 0.6 oz pure alcoho l) 2 mixed drinks, 2-3 days week Sex Assigned at Date Recorded Not on file documented as of this encounter Miscellaneous Notes Telephone Encounter - Margareth Devries RN - 11/19/2015 3:31 PM CDT Spoke with patient. He states that they are requesting further information on the letter to include: 1. What is your condition? 2. When will you be able to go back to work? I reviewed patient's chart and saw notes by Dr. Bejarano. 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 Return to work is unknown at this point. Letter t'd up and placed on Mic desk for signature. Patient would like to pick out hand note in the am. Margareht Devries RN Telephone Encounter - Diana Morgan RN - 11/19/2015 12:17 PM CDT Pt calling back, [facility] notified them that they need additional information added to the previous letter submitted to them from Mic Hester. Pt states the letter with the necessary additional information was given to the clinic last week. Pt requesting the letter be addended with thenecessary information, signed and sent back to [facility]. Pt requesting to be called back regarding the letter with what the updated letter will state. Also requesting to pick out hand copy at the front end driver. Please call Nathan at [phone] Sheridan Morgan RN, BSN Telephone Encounter - Susan Elliott - 11/12/2015 11:06 AM CDT Faxed to below Telephone Encounter - Diana Morgan RN - 11/11/2015 2:58 PM CDT Please advise on letter request below. Letter T'd up. Please print on [email or web address] letterhead with signature. Fax Attn: Thien to: [phone] Sheridan Morgan RN, BSN Telephone Encounter - Angelita Gomez RN - 11/11/2015 2:23 PM CDT Clinic Action Needed: Please Fax Doctor's note , so Patient can get his [place] driver's license back So that he can get to physical therapy. 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 Need fax to [facility] number [phone] Attention Thien on [facility] letterhead with Doctor's signature and include Ronn Hinkle S BD 1985 state that Patient is needing on-going continuing medical care that require Ronn to drive himself . When Thien receives this fax , she will contact Patient and he will reschedule his physical therapy. Patient Recommendations/Teaching: Routed to:Sent to nurse pool. Angelita Gomez RN, [facility] Nurse Advisors documented in this encounter Plan of Treatment Not on filedocumented as of this encounter Visit Diagnoses Not on filedocumented in this encounter Care Teams Solution Design Engineer Relationship Specialty Start Date End Date Carlos Chapman MD PCP - General Family Practice 02/06/14 04/29/19 documented as of this encounter
--- OUTSIDE RECORDS SUMMARY | 2022-03-31 16:57 | XMS_ITS | Encounter Summary ---
:1985 Author Organization [place] Address [address] [place] [address] Care Team Providers Name Role Phone Carlos Chapman MD Primary Care Provider [phone] Reason for Visit Rehab Therapy Physical Therapy - Closed Specialty Diagnoses / Procedures Referred By Contact Refer red To Contact Physical Therapy Diagnoses Cisplatin induced neuropathy (H) Polymyalgia (H) [facility] [address] [place] [address] Phone: Fax: Referral ID Status Reason Start Date Expiration Date Visits V isits Requested Authorized [facility]-PT Closed 08/05/2015 05/30/2016 365 38 ([id number]) Encounter Details Date Type Department Care Team Description 08/12/2015 Hospital Encounter [facility] [place] [address] [address] [place] [address] Rehabilitation Services Kacie Santiago, PT [address] [place] [address] [address] Social History Tobacco Use Types [...] Sig Dispensed Refills Start Date End Date alum & mag Take 30 mLs by [...] that the patient reports taking medical cannabis.) dicyclomine (BENTYL) Take 1 tablet (20 40 tablet 0 08/07/19 16 08/17/2015 20 MG tablet mg) by mouth 4 times daily as needed pantoprazole Take 1 tablet (40 30 tablet 0 08/07/201509/05 (PROTONIX) 40 MG mg) by mouth enteric coated tablet daily for 30 doses acetaminophen Take 2 tablets 40 tablet 0 08/07/2015 016 (TYLENOL) 325 MG (650 mg) by mouth tablet every 4 hours as needed azithromycin Two tablets first 6 tablet 0 07/12/201510/22 (ZITHROMAX) 250 MG day, then one tabletIndications: tablet daily for Acute sinusitis with four days. symptoms > 10 days cholecalciferol Take 1 capsule 12 capsule 1 01/02/201511/04 (VITAMIN D3) 71052 (50,000 Units) by UNITS mouth once a week capsuleIndications: Vitamin D deficiency fluticasone (FLONASE) 0 06/18/201509/2015 50 MCG/ACT nasal spray HYDROcodone-acetaminop Take 1 tablet by 20 tablet 0 016 10/23/2015 hen (NORCO) 5-325 MG mouth 2 times per tabletIndications: daily as needed Acute low back pain for moderate to severe pain ibuprofen Take 3 tablets 40 tablet 0 08/07/2015 03/03/2016 (ADVIL,MOTRIN) 200 MG (600 mg) by mouth tablet every 6 hours as needed for mild pain predniSONE (DELTASONE) Take 3 tabs (60 20 tablet 0 06/24/19 16 10/23/2015 20 MG mg) orally daily tabletIndications: for 3 days, 2 Bilateral low back tabs (40 mg) pain with left-sided orally daily for sciatica 3 days, 1 tab (20 mg) orally daily for 3 days, then 1/2 tab (10 mg) orally for 3 days documented as of this encounter Plan of Treatment Not on filedocumented as of this encounter Visit Diagnoses Not on filedocumented in this encounter Care Teams Paper Products Inspector Relationship Specialty Start Date End Date Carlos Chapman MD PCP - General Family Practice 02/06/14 04/29/19 documented as of this encounter
--- OUTSIDE RECORDS SUMMARY | 2022-03-31 16:57 | XMS_ITS | Encounter Summary ---
:1985 Author Organization [place] Address [address] [address] Care Team Providers Name Role Phone Carlos Chapman MD Primary Care Provider [phone] Reason for Visit Reason Comments STD Requesting STD testing. Encounter Details Date Type Department Care Team Description 03/19/2015 Office Visit [facility] Mic Hester Screen for STD [facility] [place] DANIKA Gramajo (sexually transmitted [address] disease) (Primary Dx) [facility], [address] [place] [address] [place], [place] [phone] (Wo rk) [address] [phone] Social History Tobacco Use Types Packs/Day Years Used Date Smoking Tobacco: Never Smokeless Tobacco: Never Alcohol Use Standard Drinks/Week Comments Yes 0 (1 standard drink = 0.6 oz pure alcoho l) 2 mixed drinks, 2-3 days week Sex Assigned at Date Recorded Not on file documented as of this encounter Last Filed Vital Signs Vital Sign Reading Time Taken Comments Blood Pressure 128/88 03/19/2015 1:50 PM CDT Pulse 95 03/19/2015 1:50 PM CDT Temperature 37.3 ??C (99.1 ??F) 03/19/2015 1:50 PM CDT Respiratory Rate 24 03/19/2015 1:50 PM CDT Oxygen Saturation 97% 03/19/2015 1:50 PM CDT Inhaled Oxygen Concentration - - Weight 95.6 kg (210 lb 11.2 oz) 03/19/2015 1:50 PM CDT Height - - Body Mass Index 33 01/23/2015 2:47 PM CDT documented in this encounter Progress Notes Mic Hester PA-C - 03/19/2015 1:41 PM CDT HPI SUBJECTIVE: Ronn Hinkle is a 29 year old male who presents to clinic today for the following health issues: STD TESTING: Ronn just found out recently his girlfriend has been intimate with other partners. She has also been known to use drugs, possibly IV, so he would like to be tested for STD's today. He is not noting any symptoms today. He mentions today that he is off all his previous pain medications and using medical marijuana. He is getting this at a lab in [place]. It has made a dramatic improvement in his daily pain. He continues with physical therapy. Problem list and histories reviewed & adjusted, as indicated. Additional history: as documented Problem list, Medication list, Allergies, and Medical/Social/Surgical histories reviewed in [facility] andupdated as appropriate. ROS: Constitutional, HEENT, cardiovascular, pulmonary, gi and gu systems are negative, except as otherwise noted. OBJECTIVE: BP 128/88 mmHg Pulse 95 Temp(Src) 99.1 ??F (37.3 ??C) (Oral) Resp 24 Wt 210 lb 11.2 oz (95.573 kg) SpO2 97% Body mass index is 32.99 kg/(m^2). GENERAL APPEARANCE: healthy, alert and no distress PSYCH: mentation appears normal and affect normal/bright No further exam 15 minutes total with discussion and counselling equal to >%50 of visit. Diagnostic test results: pending ASSESSMENT/PLAN: ICD-10-CM 1. Screen for STD (sexually transmitted disease) Z11.3 HIV Antigen Antibody Combo Hepatitis C antibody Anti Treponema Chlamydia trachomatis PCR Neisseria gonorrhoeae PCR Follow up with Provider - pending labs. Mic Hester PA-C [facility] ROS Physical Exam documented in this encounter Nursing Notes Kacie Hardy CMA - 03/19/2015 1:56 PM CDT Chief Complaint Patient presents with ??? STD Requesting STD testing. Initial BP 128/88 mmHg Pulse 95 Temp(Src) 99.1 ??F (37.3 ??C) (Oral) Resp 24 Wt 210 lb 11.2 oz (95.573 kg) SpO2 97% Estimated body mass index is 32.99 kg/(m^2) as calculated from the following: Height as of 15: 5' 7 (1.702 m). Weight as of this encounter: 210 lb 11.2 oz (95.573 kg). BP completed using cuff size large right arm. Kacie Hardy CMA documented in this encounter Plan of Treatment Not on filedocumented as of this encounter Procedures Procedure Name Priority Date/Time Associated Diagnosis Comme nts HIV ANTIGEN ANTIBODY Routine 03/19/2015 2:19 PM Screen for STD Results for this COMBO CDT (sexually procedure are i n transmitted disease) the res ults section. HEPATITIS C ANTIBODY Routine 03/19/2015 2:19 PM Screen for STD Results for this CDT (sexually procedure are i n transmitted disease) the res ults section. ANTI TREPONEMA Routine 03/19/2015 2:19 PM Screen for STD Resul ts for this CDT (sexually procedure are i n transmitted disease) the res ults section. NEISSERIA Routine 03/19/2015 2:16 PM Screen for STD Results for this GONORRHOEAE PCR CDT (sexually procedure ar e in transmitted disease) the res ults section. CHLAMYDIA Routine 03/19/2015 2:16 PM Screen for STD Results for this TRACHOMATIS PCR CDT (sexually procedure ar e in transmitted disease) the res ults section. documented in this encounter Results Anti Treponema (03/19/2015 2:19 PM CDT) Analysis Performed At Patho logist Time Signature Treponema Negative NEG [facility] MED[facility] Specimen Anatomical Collection Method Collection Time Receive d Time (Source) Location / / Volume Laterality Blood specimen 03/19/2015 2:19 PM 015 2:20 (specimen) CDT PM CDT Mic Hester PA-C LAB - BLOOD ORDERABLES Performing Organization Address City/State/ZIP Code Phon e Number [facility] [address] [place] [address] [place] Hepatitis C antibody (03/19/2015 2:19 PM CDT) Component Value Ref Test Analysis Performed At [facility] Range Method Time Signature Hepatitis C Nonreactive NR [facility] Antibody Assay performance character istics have not been established for newborns, [facility] infants, and children [facility] Specimen Anatomical Collection Method Collection Time Receive d Time (Source) Location / / Volume Laterality Blood specimen 03/19/2015 2:19 PM 015 2:20 (specimen) CDT PM CDT Mic Hester PA-C LAB - BLOOD ORDERABLES Performing Organization Address City/[facility]/ZIP Code Phon e Number [facility] [address] [place], [place] [id number] [place] [address] HIV Antigen Antibody Combo (03/19/2015 2:19 PM CDT) [facility] Method Time Signature HIV Antigen Nonreactive NR [facility] Antibody HIV-1 p24 Ag & HIV-1/HIV-2 Ab Not Detected [facility] Specimen Anatomical Collection Method Collection Time Receive d Time (Source) Location / / Volume Laterality Blood specimen 03/19/2015 2:19 PM 015 2:20 (specimen) CDT PM CDT Mic Hester PA-C LAB - BLOOD ORDERABLES Performing Organization Address City/[facility] Code Phon e Number [id number] [place] [address] Neisseria gonorrhoeae PCR (03/19/2015 2:16 PM CDT) Component Value Ref Test Analysis Performed At [facility] [place] Range Method Time Signature Specimen Urine [facility] N Gonorrhea Negative NEG [facility] Negative for N. gonorrhoeae rRNA by transcripti on mediated amplification. [facility] A negative result by transc ription mediated amplification does not preclude the [facility] presence of N. gonorrhoeae infection because re sults are dependent on proper BANK and adequate collection, absence of inhibitors, and suffici ent rRNA to be detected. Specimen Anatomical Collection Method Collection Time Receive d Time (Source) Location / / Volume Laterality Urine specimen 03/19/2015 2:16 PM 015 2:18 (specimen) CDT PM CDT Mic Hester PA-C LAB - MICRO GENERAL ORDERABL ES Performing Organization Address City/State/ZIP Code Phon e Number [id number] [place] [id number] Chlamydia trachomatis PCR (03/19/2015 2:16 PM CDT) Component Value Ref Test Analysis Performed At [facility] Range Method Time Signature Specimen Urine [facility] Chlamydia Negative NEG [facility] Negative for C. trachomatis rRNA by disposal plant operator mediated amplification. [place] MEDICAL PCR A negative result by transc ription mediated amplification does not preclude the [facility] presence of C. trachomatis infection because re sults are dependent on proper BANK and adequate collection, absence of inhibitors, and suffici ent rRNA to be detected. Specimen Anatomical Collection Method Collection Time Receive d Time (Source) Location / / Volume Laterality Urine specimen 03/19/2015 2:16 PM 015 2:18 (specimen) CDT PM CDT Mic Hester PA-C LAB - MICRO GENERAL ORDERABL ES Performing Organization Address [facility] Phon e Number [address] [address] documented in this encounter Visit Diagnoses Diagnosis Screen for STD (sexually transmitted dis ease) - Primary Screening examination for venereal disea se documented in this encounter Care Teams Oyster Washer Relationship Specialty Start Date End Date Carlos Chapman MD PCP - General Family Practice 02/06/14 04/29/19 documented as of this encounter
--- OUTSIDE RECORDS SUMMARY | 2022-03-31 16:57 | XMS_ITS | Encounter Summary ---
:1985 Author Organization [place] Address [address] [facility] [place] [address] Care Team Providers Name Role Phone Carlos Chapman MD Primary Care Provider [phone] Encounter Details Date Type Department Care Team Description 07/02/2015 Therapy Visit [facility] Alycia Day P T Bilateral low back Rehabilitation Services 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 presence unspecified [facility] NEUROMUSCULAR Routine 07/02/2015 10:41 AM Bilateral low ba ck RE-EDUCATION [employer] SUPERVISOR pain, with sciatica presence unspecified [facility] THERAPEUTIC EXERCISES Routine 07/02/2015 10:41 AM Bilatera l low back [employer] SUPERVISOR pain, with sciatica presence unspecified documented in this encounter Visit Diagnoses Diagnosis Bilateral low back pain, with sciatica p resence unspecified - Primary documented in this encounter Care Teams Power Plant Manager Relationship Specialty Start Date End Date Carlos Chapman MD PCP - General Family Practice 02/06/14 04/29/19 documented as of this encounter
--- OUTSIDE RECORDS SUMMARY | 2022-03-31 16:57 | XMS_ITS | Encounter Summary ---
:1985 Author Organization [place] Address [address] [place] [address] Care Team Providers Name Role Phone Carlos Chapman MD Primary Care Provider [phone] Reason for Visit Rehab Therapy Integrated Services (Routine) - Closed Specialty Diagnoses / Procedures Referred By Contact Refer red To Contact Diagnoses Cancer Rehab PT//Fatigue Neuropathy, -Would prefer on days with other appts [facility] Procedures TREATMENT [address] [facility] [address] [place], [place] [address] Phone: Fax: Referral ID Status Reason Start Date Expiration Date Visits V isits Requested Authorized [facility]-PT/OT/EXPENDITURE REQUISITION CLERK Closed 01/29/2015 05/30/[phone] ([id number]) Encounter Details Date Type Department Care Team Description 03/28/2015 Hospital Encounter [facility] Olivia Bejarano i, DO [facility] [address] [place], [place] [id number] Rehabilitation Services Kacie Santiago, PT [address] [place] [address] [address] Social History Tobacco Use Types [...] capsule 12 capsule 1 01/02/201511/04 (VITAMIN D3) 75076 (50,000 Units) by UNITS mouth once a week capsuleIndications: Vitamin D deficiency fluticasone (FLONASE) [place] 1-2 sprays 16 g 1 02/06/20 15 06/18/2015 50 MCG/ACT nasal into both sprayIndications: nostrils daily Chronic rhinitis documented as of this encounter Plan of Treatment Not on filedocumented as of this encounter Visit Diagnoses Not on filedocumented in this encounter Care Teams Central Office Inspector Relationship Specialty Start Date End Date Carlos Chapman MD PCP - General Family Practice 02/06/14 04/29/19 documented as of this encounter
--- OUTSIDE RECORDS SUMMARY | 2022-03-31 16:57 | XMS_ITS | Encounter Summary ---
:1985 Author Organization [place] Address [facility] [place] [address] Care Team Providers Name Role Phone Carlos Chapman MD Primary Care Provider [phone] Reason for Visit Reason Comments Chest Pain Encounter Details Date Type Department Care Team Description 08/07/2015 Emergency [facility] Jose Alfredo Rehman A bdominal pain, right [facility] MD upper quadrant [address] [facility] [id number] 97[address] [facility] [phone] [place], [place] [address] (Wo rk) Social History [...] Sign Reading Time Taken Comments Blood Pressure 153/105 08/07/2015 1:00 PM YEAST STACKER Pulse 91 08/07/2015 9:34 AM YEAST STACKER Temperature 36.6 ??C (97.8 ??F) 08/07/2015 9:34 AM YEAST STACKER Respiratory Rate 18 08/07/2015 9:34 AM YEAST STACKER Oxygen Saturation 98% 08/07/2015 1:00 PM YEAST STACKER Inhaled Oxygen Concentration - - Weight - - Height - - Body Mass Index - - documented in this encounter Discharge Instructions Discharge InstructionsJose Alfredo Rehman MD - 08/07/2015 12:42 PM YEAST STACKER Images from the original note were not included. * Abdominal Pain,Uncertain Cause [Male] Based on your visit today, the exact cause of your abdominal (stomach)??pain is not clear. Your examand tests do not indicate a dangerous cause at this time. However, the signs of a serious problem may take more time to appear. Although your exam was reassuring today, sometimes early in the course ofmany conditions, exam and lab tests can appear normal. Therefore, it is important for you to watch for any new symptoms or worsening of your condition. Causes: It may not be obvious what caused your symptoms. Pay attention to things that do seem to make your symptoms worse or better and discuss this with your doctor when you follow up. Diagnosis: The evaluation of abdominal pain in the emergency department may only??require an exam by the doctoror it may include blood, urine or imaging studies, depending on many factors. Sometimes exams and tests can identify a cause but in many cases, a clear cause is not found. Further testing at follow up visits may help to suggest a clear diagnosis. Home Care: ?? Rest as much as possible until your next exam. ?? Try to avoid any medications (unless otherwise directed by your doctor), foods, activities, or other factors that you may have contributed to your symptoms. ?? Try to eat foods that you know that you have tolerated well in the past. Certain diets may be recommended for some conditions that cause abdominal pain. However, since the cause of your symptoms maynot be clear, discuss your diet more with your primary care provider or specialist for further recomm endations.? Eating several small meals per day as opposed to 2 or 3 larger meals may help. ?? Monitor closely for anything that may make your symptoms worse or better. Pay close attention to symptoms below that may indicate worsening of your condition. Follow Up And Precautions: See your doctor or this facility as instructed (or sooner, if your symptoms are not improving).??In some cases, you may need more testing. Contact Your Doctor Or Seek Medical Attention if any of the following occur: ?? Pain is becoming worse ?? You are unable to take your medications because of too much vomiting ?? Swelling of the abdomen ?? Fever of 101??F (38.3??C) or higher, or as directed by your health care provider ?? Blood in vomit or bowel movements (dark red or black color) ?? Jaundice (yellow color of eyes and skin) ?? New onset of weakness, dizziness or fainting ?? New onset of chest, arm, back, neck or jaw pain ?? [phone] Cora Otero, [address] [place] [address], [place] [address]. All rights reserved. This information is not intended as a substitute for professional medical care. Always follow your healthcare professional's instructions. T STACKER documented in this encounter Medications at Time [...] capsule 12 capsule 1 01/02/201511/04 (VITAMIN D3) 42364 (50,000 Units) by UNITS mouth once a [...] 3 days documented as of this encounter ED Notes Antonia Anguiano RN - 08/07/2015 12:32 PM CST Rates pain 6/10 , intermittent pain. MD will evaluate patient prior to giving another dose of Dilaudid. T STACKER Jose Alfredo Rehman MD - 08/07/2015 9:44 AM CST History Chief Complaint: Abdominal Pain HPI Ronn Hinkle is a 29 year old male with a history of testicular cancer with spine metastases, s/p chemo and orchiectomy in 1998, also s/p cholecystectomy, who presents abdominal pain. The patient reports a 1.5 month history of cramping right upper quadrant abdominal pain that has been intermittent in nature at 6/10 in severity. He states he on occasion can feel his stomach moving. There are no specific triggers that he can associated with the pain. He has had worse pain over the past several days, acutely worse last night with a more stabbing pain that kept him awake, prompting him to come in for evaluation this morning. He reports some mild nausea, but this has not been associated with any vomiting, diarrhea, constipation, bloody or dark stool, or urinary symptoms. He has not been running a fever. His appetite has been decreased overall since pain began several weeks ago. He has also quit drinking alcohol completely (was drinking moderately, 4-5 drinks weekly). He secondarily notes some intermittent lightheadedness, slight shortness of breath, and a transient fluttery sensation in his chest several days ago that has resolved. He has had no chest pain other than the pain described above. He saw Cardiology in December 2014 due to some intermittent palpitationsand shortness of breath, and an Echo was done and was normal (as below), and a Zio patch quality assurance monitor was also completed at that time. Echocardiogram - 02/07/15 Left ventricular systolic function is normal. The visual ejection fraction is estimated at 55-60%. The left ventricle is normal in size. The right ventricle is normal in structure, function and size. The rhythm was normal sinus. This is a normal TTE. Cardiac Risk Factors Sex: Male Tobacco: Negative Hypertension: Negative Diabetes: Negative Lipids: Negative Family History: Negative PE/DVT Risk Factors Personal History: Negative Recent Travel: Negative Recent Surgery: Negative Tobacco: Negative Family History: Negative Hormones: Negative Cancer: Negative Trauma: Negative Allergies: No Known Allergies Medications: Flonase Past Medical History: Palpitations Testicular cancer Past Surgical History: Orchiectomy, inguinal (for left testicular CA, with spinal met) Cholecystectomy Family History: No past pertinent family history. Social History: Negative for tobacco use. Positive for alcohol use. Marital Status: Single [1] Review of Systems Constitutional: Negative for fever. Respiratory: Positive for shortness of breath. Negative for cough. Cardiovascular: Positive for palpitations. Negative for chest pain and leg swelling. Gastrointestinal: Positive for abdominal pain. Negative for nausea, vomiting, diarrhea, constipationand blood in stool. Genitourinary: Negative for dysuria and frequency. Neurological: Positive for light-headedness. All other systems reviewed and are negative. Physical Exam First Vitals: BP: (!) 171/119 mmHg Pulse: 91 Heart Rate: 91 Temp: 97.8 ??F (36.6 ??C) Resp: 18 SpO2: 98 % Physical Exam Constitutional: Alert and oriented to person, place and time. In no acute distress HENT: Mouth: Moist mucous membranes Throat: Tracheal midline No cervical lymphadenopathy Eyes: Pupils equal, round and reactive to light. Extraocular movements are intact. Conjunctiva pink. Sclera anicteric. CV: Regular rate. Regular rhythm. Normal S1, S2. No murmurs, No rubs, No gallops Radial pulses 2+ bilaterally Chest: Good air movement bilaterally Clear to ascultation bilaterally. No wheezing, No rhonchi, No rales. No accessory muscle use. GI: Soft Epigastric: No tenderness, No guarding RUQ: Discomfort, Negative Nowak's sign RLQ: No tenderness, No guarding LUQ: No tenderness, No guarding LLQ: No tenderness, No guarding Non-distended Normal bowel sounds MSK: Normal range of motion. Strength is 5/5 in all 4 extremities Neurological: Alert, attentive Skin: Warm, Dry, Normal color Emergency Department Course ECG @10:08: Vent. Rate 78 bpm. MS interval 178. QRS duration 82. QT/QTc 378/430. P-R-T axis 27 -7 19. NSR. Normal ECG. Read time: 10:11. Imaging: Radiographic findings were communicated with the patient who voiced understanding of the findings. CT Chest/Abdomen/Pelvis with Contrast: 1. No acute changes are evident in the chest, abdomen or pelvis to account for patient's symptoms. Prior cholecystectomy and left orchiectomy. 2. Fluid in the esophagus is probably due to gastroesophageal reflux. No esophageal wall thickening.No enlarged lymph nodes in the chest, abdomen or pelvis. 3. Simple cyst upper pole left kidney unchanged since prior CT dating back to 2002. Impression per radiology. Laboratory: CBC: WBC 8.4, HGB 15.7, PLT 226 (All WNL) BMP: WNL (Creat 0.99) Hepatic panel: ALT 80 (high), o/w WNL INR: 1.02 PTT: 29 Lipase: 174 (wnl) Lactic acid: 0.8 (wnl) Troponin @10:05: <0.015 (wnl) D dimer: <0.3 (wnl) Interventions: 10:20 NS 1 L IV 10:21 Zofran 4 mg IV 10:22 Protonix 40 mg IV 10:30 Dilaudid 1 mg IV 12:49 Tylenol 1000 mg PO 12:49 GI cocktail 30 mL PO 12:59 Bentyl 20 mg PO Emergency Department Course: 09:44 Nursing notes and vitals reviewed. I performed an exam of the patient as documented above. 10:05 IV inserted and blood drawn. This was sent for laboratory testing, results above. 11:54 The patient was sent for CT while in the emergency department, findings above. 12:31 Rechecked updated patient. Findings and plan explained to the Patient. Patient discharged home with instructions regarding supportive care, medications, and reasons to return. The importance of close follow-up was reviewed. Impression & Plan Medical Decision Making: Ronn Hinkle is a 29 year old male who presents for evaluation of right sided abdominal pain whichhas been present for the last month and a half. He ranks it 6/10 intermittent pain, describes it as a cramping type pain and states he sometimes can see his stomach moving. This is associated with somenausea. He has a significant medical history of testicular cancer with metastasis to his spine. He underwent chemotherapy with Cisplatin as well as a left orchiectomy. 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 Today, he presents for evaluation of generalized malaise and right lower chest pain/right upper abdominal pain. On exam, he has stable vital signs, is hypertensive but has normal pulse ox and is afebrile. Lungs are clear to auscultation. He has some discomfort in the RUQ but negative Nowak's sign, no rebound orguarding, and abdomen is benign. The patient was worked up for possible right lower lobe pneumonia or hepatitis, pancreatitis, gastritis, intraabdominal abscess, recurrence of testicular cancer. He had a CT chest/abdomen/pelvis with contrast that was read by radiology as essentially unremarkable. There is incident note of prior cholec ystectomy and left orchiectomy. There was fluid in the esophagus likely due to GERD, and there was asimple cyst to the left upper pole of the left kidney, which is stable dating back to 2002. Basic labs were obtained and showed normal serum electrolytes, hepatic profile, and pancreatic enzymes. Troponin and D dimer were normal. CBC was normal. I did obtain an EKG to screen for any CAD, which was negative for acute ischemia. He was treated supportively initially with Dilaudid 1 mg IV as well as antacids and antiemetics, Chela did provide the patient with an antispasmodic medication, Bentyl. I explained to him that I do nothave a definitive cause to his abdominal pain. There appears to be no surgical emergency or infectious emergency. I encouraged him to follow up with his primary care physician as well as [facility]. Diagnosis: ICD-10-CM 1. Abdominal pain, right upper quadrant R10.11 Disposition: Discharged home with prescriptions as listed below. Follow up with PCP within 1 week. [facility] Return for worsening symptoms. Condition at time of discharge: Stable. Discharge Medications: New Prescriptions Details alum & mag hydroxide-simethicone (MYLANTA/MAALOX) 200-200-20 MG/5ML SUSP Take 30 mLs by mouth every 4 hours as needed for indigestion Qty: 355 mL, Refills: 0 pantoprazole (PROTONIX) 40 MG enteric coated tablet Take 1 tablet (40 mg) by mouth daily for 30 doses Qty: 30 tablet, Refills: 0 dicyclomine (BENTYL) 20 MG tablet Take 1 tablet (20 mg) by mouth 4 times daily as needed Qty: 40 tablet, Refills: 0 Comments: PRN abdominal spasm acetaminophen (TYLENOL) 325 MG tablet Take 2 tablets (650 mg) by mouth every 4 hours as needed Qty: 40 tablet, Refills: 0 ibuprofen (ADVIL,MOTRIN) 200 MG tablet Take 3 tablets (600 mg) by mouth every 6 hours as needed for mild pain Qty: 40 tablet, Refills: 0 Jonnie Doran am serving as a scribe on 08/07/2015 at 09:44 to personally document services performed by Dr. Rehman based on my observations and the provider's statements to me. [facility] EMERGENCY [facility]PART[facility] Jose Alfredo Rehman MD 08/07/15 [id number] T STACKER Carmen Chavez RN - 08/07/2015 9:31 AM CST Quit drinking 1 month ago; ruq abd pain; Up all night last night diaphoretic, shaking, reflux aox3 abc's intact T STACKER documented in this encounter Plan of Treatment Not on filedocumented as of this encounter Procedures Procedure Name Priority Date/Time Associated Comments Diagnosis CT CHEST/ABDOMEN/PELVIS STAT 08/07/2015 12:07 Results for this W CONTRAST PM YEAST STACKER procedure are i n the results section. EKG 12-LEAD, TRACING STAT 08/07/2015 10:08 Res ults for this ONLY AM YEAST STACKER procedure are i n the results section. CBC WITH PLATELETS & STAT 08/07/2015 10:05 Res ults for this DIFFERENTIAL AM YEAST STACKER procedure are i n the results section. TROPONIN I STAT 08/07/2015 10:05 Results for this AM YEAST STACKER procedure are i n the results section. INR STAT 08/07/2015 10:05 Results for this AM YEAST STACKER procedure are i n the results section. PARTIAL THROMBOPLASTIN STAT 08/07/2015 10:05 R esults for this TIME AM YEAST STACKER procedure are i n the results section. LIPASE STAT 08/07/2015 10:05 Results for this AM YEAST STACKER procedure are i n the results section. LACTIC ACID STAT 08/07/2015 10:05 Results for this AM YEAST STACKER procedure are i n the results section. HEPATIC FUNCTION PANEL STAT 08/07/2015 10:05 R esults for this AM YEAST STACKER procedure are i n the results section. D DIMER QUANTITATIVE STAT 08/07/2015 10:05 Res ults for this AM YEAST STACKER procedure are i n the results section. BASIC METABOLIC PANEL STAT 08/07/2015 10:05 Re sults for this AM YEAST STACKER procedure are i n the results section. documented in this encounter Results CT Chest/Abdomen/Pelvis w Contrast (08/07/2015 12:07 PM YEAST STACKER) Anatomical Region Laterality Modality Abdomen/Pelvis, Chest, SUBRAD CT BODY, UMP CT CHEST, Computed Tomography UM CT ABDOMEN PELVIS Specimen (Source) Anatomical Location Collection Method / Collectio n Time Received Time / Laterality Volume Impressions 08/07/2015 12:41 PM YEAST STACKER IMPRESSION: 1. No acute changes are evident in the c hest, abdomen or pelvis to account for patient's symptoms. Prior ch olecystectomy and left orchiectomy. 2. Fluid in the esophagus is probably du e to gastroesophageal reflux. No esophageal wall thickening. No enlarg ed lymph nodes in the chest, abdomen or pelvis. 3. Simple cyst upper pole left kidney un changed since prior CT dating back to 2002. STEVO SHAY MD Narrative 08/07/2015 12:[address] CHEST/ABDOMEN/PELVIS WITH CONTRAST August 07, 2015 12:07 PM HISTORY: Right upper quadrant abdominal pain and right lower chest pain. History of testicular cancer with spine metastases now in remission. COMPARISON: CT abdomen/pelvis 03/24/2003 . TECHNIQUE: Axial images from the thoraci c inlet to the symphysis are performed with additional coronal reform atted images. 80 mL of Isovue 370 are given intravenously. FINDINGS: Chest: The lungs are clear. No pleural o r pericardial fluid. Heart is normal in size. Small amount of fluid is noted in the esophagus possibly reflecting gastroesophageal ref lux. The neck is filled with fluid. Thyroid gland appears normal in s ize where imaged. No enlarged lymph nodes. Abdomen: Prior cholecystectomy changes. Liver is unremarkable. Spleen, adrenal glands and right kidney are unre markable. Simple cyst upper pole left kidney is unchanged. No hydron ephrosis or urinary tract calculi. No enlarged lymph nodes. The melissa wel is unremarkable. No obstruction or diverticulitis. Appendix not visualized. Pelvis: The bladder, prostate and rectum are unremarkable. No enlarged pelvic or inguinal lymph nodes. Patient is status post left orchiectomy. ??Bone window examination i s unremarkable without sclerotic or lytic changes. Procedure Note Stevo Shay MD - 08/07/2015Form atting of this note might be different from the original. CT CHEST/ABDOMEN/PELVIS WITH CONTRAST [facility] 2015 12:07 PM HISTORY: Right upper quadrant abdominal pain and right lower chest pain. History of testicular cancer with spine metastases now in remission. COMPARISON: CT abdomen/pelvis 03/24/2003 . TECHNIQUE: Axial images from the thoraci c inlet to the symphysis are performed with additional coronal reform atted images. 80 mL of Isovue 370 are given intravenously. FINDINGS: Chest: The lungs are clear. No pleural o r pericardial fluid. Heart is normal in size. Small amount of fluid is noted in the esophagus possibly reflecting gastroesophageal ref lux. The neck is filled with fluid. Thyroid gland appears normal in s ize where imaged. No enlarged lymph nodes. Abdomen: Prior cholecystectomy changes. Liver is unremarkable. Spleen, adrenal glands and right kidney are unre markable. Simple cyst upper pole left kidney is unchanged. No hydron ephrosis or urinary tract calculi. No enlarged lymph nodes. The melissa wel is unremarkable. No obstruction or diverticulitis. Appendix not visualized. Pelvis: The bladder, prostate and rectum are unremarkable. No enlarged pelvic or inguinal lymph nodes. Patient is status post left orchiectomy. Bone window examination is unremarkable without sclerotic or lytic changes. IMPRESSION: 1. No acute changes are evident in the c hest, abdomen or pelvis to account for patient's symptoms. Prior ch olecystectomy and left orchiectomy. 2. Fluid in the esophagus is probably du e to gastroesophageal reflux. No esophageal wall thickening. No enlarg ed lymph nodes in the chest, abdomen or pelvis. 3. Simple cyst upper pole left kidney un changed since prior CT dating back to 2002. STEVO SHAY MD Jose Alfredo Rehman MD IMG CT ORDERABLES EKG 12-lead, tracing only (08/07/2015 10:08 AM YEAST STACKER) [facility] [employer] Method Time Signature Interpretation ECG Click View RADIOLOGY Image link RESULTS to view waveform and result Specimen (Source) Anatomical Collection Method Collection Time Re ceived Time Location / / Volume Laterality 08/07/2015 10:08 AM YEAST STACKER Jose Alfredo Rehman MD ECG ORDERABLES Performing Organization Address City/[facility]/ZIP Code Phon e Number RADIOLOGY RESULTS D dimer quantitative (08/07/2015 10:05 AM YEAST STACKER) [facility] [employer] Method Time Signature D Dimer <0.3 0.0 - [place] This D-dimer assay is intended for use i n conjuntion with a clinical pretest 0.50 [facility] probability assessment model to exclude pulmonary embolism (PE) and as an aid ug/ml [facility] in the diagnosis of deep ve nous thrombosis (DVT) in outpatients suspected of PE or DVT. The cut-off value is 0.5??g/mL [facility]. Specimen Anatomical Collection Method Collection Time Receive d Time (Source) Location / / Volume Laterality Blood specimen 08/07/2015 10:05 6 (specimen) AM YEAST STACKER 10:19 AM YEAST STACKER Jose Alfredo Rehman MD LAB - BLOOD ORDERABLES Performing Organization Address City/[facility]/ZIP Code Phon e Number [facility] [address], [place] [address] [facility] [address] [address] [facility] [[email or web address]] [phone] Troponin I (08/07/2015 10:05 AM YEAST STACKER) [facility] [employer] Method Time Signature Troponin I ES <0.015 0.000 - [place] The 99th percentile for uppe r reference range is 0.045 ug/L. ??Troponin values in 0.045 [facility] the range of 0.045 - 0.120 ug/L may be associated wit h risks of adverse ug/L HOSPITAL clinical events. Specimen Anatomical Collection Method Collection Time Receive d Time (Source) Location / / Volume Laterality Blood specimen 08/07/2015 10: 6 (specimen) AM YEAST STACKER 10:19 AM YEAST STACKER Jose Alfredo Rehman MD LAB - BLOOD ORDERABLES Performing Organization Address City/[facility]/ZIP [facility] e [facility] [address] [address] [place] [address] [address] [address], [facility] [phone] Lactic acid (08/07/2015 10:05 AM YEAST STACKER) P athologist Signature Lactic Acid 0.8 0.4 - 2.0 [facility] Specimen Anatomical Collection Method Collection Time Receive d Time (Source) Location / / Volume Laterality Blood specimen 08/07/2015 10:05 6 (specimen) AM YEAST STACKER 10:21 AM YEAST STACKER Jose Alfredo Rehman MD LAB - BLOOD ORDERABLES Performing Organization Address [facility] e [facility] [address], [place] [address] [place] [address] [address] [id number], [facility] [phone] Lipase (08/07/2015 10:05 AM YEAST STACKER) P athologist Signature Lipase 174 73 - 393 [facility] Specimen Anatomical Collection Method Collection Time Receive d Time (Source) Location / / Volume Laterality Blood specimen 08/07/2015 10:05 6 (specimen) AM YEAST STACKER 10:19 AM YEAST STACKER Jose Alfredo Rehman MD LAB - BLOOD ORDERABLES Performing Organization Address City/[facility]/ZIP [facility] [address], [place] [address] [facility] [address] [place], [place] [address], [facility] [phone] Basic metabolic panel (08/07/2015 10:05 AM YEAST STACKER) athologist Signature Sodium 139 133 - 144 [place] mmol/L [facility] Potassium 3.7 3.4 - 5.3 [place] mmol/L [facility] Chloride 107 94 - 109 [place] mmol/L [facility] Carbon Dioxide 26 20 - 32 [place] mmol/L [facility] Anion Gap 6 3 - 14 [place] mmol/L [facility] Glucose 93 70 - 99 [place] mg/dL [facility] Urea Nitrogen 11 7 - 30 [place] mg/dL [facility] Creatinine 0.99 0.66 - [place] 1.25 mg/dL [facility] GFR Estimate 89 >60 [place] mL/min/1.[address] Comment: Non GFR Calc GFR Estimate If Black >90 >60 mL/min/1.7m2 F [facility] GFR Calc HOSP ITAL Calcium 8.8 8.5 - 10.1 mg/dL [facility] Specimen Anatomical Collection Method Collection Time Receive d Time (Source) Location / / Volume Laterality Blood specimen 08/07/2015 10:05 6 (specimen) AM YEAST STACKER 10:19 AM YEAST STACKER Jose Alfredo Rehman MD LAB - BLOOD ORDERABLES Performing Organization Address City/State/ZIP Code Phon e Number [place] [address] [address], [place] [address] [facility] [address] [place], [place] [address] [facility] [[email or web address]] [phone] (ABNORMAL) Hepatic panel (08/07/2015 10:05 AM YEAST STACKER) athologist Signature Bilirubin Direct 0.2 0.0 - 0.2 [place] mg/dL [facility] Bilirubin Total 0.8 0.2 - 1.3 [place] mg/dL [facility] Albumin 4.3 3.4 - 5.0 [place] g/dL [facility] Protein Total 8.1 6.8 - 8.8 [place] g/dL [facility] Alkaline 107 40 - 150 [place] Phosphatase U/L [facility] ALT 80 (H) 0 - 70 U/L [facility] [facility] 31 0 - 45 U/L [facility] Specimen Anatomical Collection Method Collection Time Receive d Time (Source) Location / / Volume Laterality Blood specimen 08/07/2015 10:05 6 (specimen) AM YEAST STACKER 10:19 AM YEAST STACKER Jose Alfredo Rehman MD LAB - BLOOD ORDERABLES Performing Organization Address City/[facility]/ZIP [facility] Phon e Number [facility] [address], [place] [address] [facility] [address] [address] 7, [facility] [phone] Partial thromboplastin time (08/07/2015 10:05 AM YEAST STACKER) P athologist Signature PTT 29 22 - [address] [facility] Specimen Anatomical Collection Method Collection Time Receive d Time (Source) Location / / Volume Laterality Blood specimen 08/07/2015 10:05 6 (specimen) AM YEAST STACKER 10:19 AM YEAST STACKER Jose Alfredo Rehman MD LAB - BLOOD ORDERABLES Performing Organization Address City/[facility] Phon e Number [facility] [address], [place] [address] [facility] [address] [place], [place] [address] 7, [facility] [phone] INR (08/07/2015 10:05 AM YEAST STACKER) P athologist Signature INR 1.02 0.86 - 1.14 [facility] Specimen Anatomical Collection Method Collection Time Receive d Time (Source) Location / / Volume Laterality Blood specimen 08/07/2015 10:05 6 (specimen) AM YEAST STACKER 10:19 AM YEAST STACKER Jose Alfredo Rehman MD LAB - BLOOD ORDERABLES Performing Organization Address City/[facility]/ZIP Code Phon e Number [facility] [address], [place] [address] [facility] [address] [phone] CBC with platelets differential (08/07/2015 10:05 AM YEAST STACKER) [facility] Method Time Signature WBC 8.4 4.0 - [place] [address] RBC Count 5.13 4.4 - 5.9 [place] 10e12/L [facility] Hemoglobin 15.7 13.3 - [place] 17.7 g/dL [facility] Hematocrit 45.2 40.0 - [place] 53.0 % [facility] MCV 88 78 - 100 [place] fl [facility] MCH 30.6 26.5 - [place] 33.0 pg [facility] MCHC 34.7 31.5 - [place] 36.5 g/dL [facility] RDW 12.5 10.0 - [place] 15.0 % [facility] Platelet Count 226 150 - [address] Diff Method Automated [place] Method [facility] % Neutrophils 62.6 % [facility] % Lymphocytes 22.8 % [facility] % Monocytes 9.9 % [facility] % Eosinophils 3.8 % [facility] % Basophils 0.5 % [facility] % Immature 0.4 % [place] Granulocytes [facility] Nucleated RBCs 0 0 /100 [facility] Absolute 5.2 1.6 - 8.3 [place] Neutrophil 10e9/[facility] Absolute 1.9 0.8 - 5.3 [place] Lymphocytes [address] [place] [address] Absolute 0.8 0.0 - 1.3 [place] Monocytes [address] [place] [address] Absolute 0.3 0.0 - 0.7 [place] Eosinophils [address] [place] [address] Absolute 0.0 0.0 - 0.2 [place] Basophils [address] [place] [address] Abs Immature 0.0 0 - 0.4 [place] Granulocytes [address] [place] [address] Absolute 0.0 [place] Nucleated RBC [facility] Specimen Anatomical Collection Method Collection Time Receive d Time (Source) Location / / Volume Laterality Blood specimen 08/07/2015 10:05 6 (specimen) AM YEAST STACKER 10:19 AM YEAST STACKER Jose Alfredo Rehman MD LAB - BLOOD ORDERABLES Performing Organization Address City/State/ZIP Code Phon e Number M [facility] [address], [place] [address] [facility] [address] [place], [place] [address] [facility] [[email or web address]] [phone] documented in this encounter Visit Diagnoses Diagnosis Abdominal pain, right upper quadrant documented in this encounter Administered Medications Inactive Administered Medications - up to 3 most recent administrations Medication Order MAR Action Action Date Dose Rate Site 0.9% sodium chloride BOLUS New Bag 08/07/2015 10:20 AM 1,000 mLs 1000 mL/hr Intravenous, 1,000 mL, YEAST STACKER ONCE, at 1,000 mL/hr, Administer over 1 Hours, On Wed08/07/15 at 1021, For 1 dose 0.9% sodium chloride BOLUS New Bag 08/07/2015 12:04 PM YEAST STACKER 65 mLs Intravenous, 1,000 mL, ONCE, On Wed08/07/15 at 1159, For 1 dose acetaminophen (TYLENOL) tablet 1,000 mg Given 08/07/2015 12:49 PM YEAST STACKER 1,000 mg 1,000 mg, Oral, ONCE, On Wed08/07/15 at 1239, For 1 dose, Maximum acetaminophen dose from all sources = 75 mg/kg/day not to exceed 4 gram dicyclomine (BENTYL) tablet 20 mg Given 08/07/2015 12:59 PM YEAST STACKER 20 mg 20 mg, Oral, ONCE, On Wed08/07/15 at 1239, For 1 dose, Recommended to take before meals. HYDROmorphone (DILAUDID) injection 1 mg Given 08/07/2015 10:30 AM YEAST STACKER 1 mg 1 mg, Intravenous, ONCE, On Wed08/07/15 at 1004, For 1 dose, Moderate to severe pain iopamidol (ISOVUE-370) 76% solution 500 mL Given 08/07/2015 12:04 PM YEAST STACKER 100 mLs 500 mL, Intravenous, ONCE, On Wed08/07/15 at 1159, For 1 dose lidocaine (XYLOCAINE) 2 % 15 mL, alum & mag Given 01/2016 12:49 PM YEAST STACKER 30 mLs hydroxide-simethicone (MYLANTA ES/MAALOX ES) 15 mL GI Cocktail 30 mL, Oral, ONCE, On Wed08/07/15 at 1239, For 1 dose ondansetron (ZOFRAN) injection 4 mg Given 08/07/2015 10:21 AM YEAST STACKER 4 mg 4 mg, Intravenous, ONCE, Administer over 2-5 Minutes, On Wed08/07/15 at 1015, For 1 dose pantoprazole (PROTONIX) 40 mg IV push Given 08/07/2015 10:22 AM YEAST STACKER 40 mg injection 40 mg, Intravenous, ONCE, Administer over 2 Minutes, On Wed08/07/15 at 1004, For 1 dose, Reconstitute vial with 10 mL NS. Flush IV line with NS or D5W. Infuse IV push over at least 2 minutes. Flush line again with NS or D5W. documented in this encounter Active and Recently Administered Medications Times are shown in YEAST STACKER. Scheduled Medication Order 08/05/2015 08/06/2015 08/07/2015 0.9% sodium chloride BOLUS (COMPLETED) 1020 (New Bag - Provider: Jayne Joshua RN)1259 (Stopped - Provider: Jayne Joshua RN) Intravenous, 1,000 mL, ONCE, at 1,000 mL /hr, Administer over 1 Hours, On Wed08/07/15 at 1021, For 1 dose 0.9% sodium chloride BOLUS (COMPLETED) 1204 (New Bag - Provider: Guera Spain - Comment: bulk)1205 (Stopped - Provider: Guera Spain) Intravenous, 1,000 mL, ONCE, Wed08/07/15 at 1159, For 1 dose acetaminophen (TYLENOL) tablet 1,000 mg (COMPLETED) 1249 (Given - Provider: Antonia Anguiano RN) 1,000 mg, Oral, ONCE, Wed08/07/15 at 1239 , For 1 dose, Maximum acetaminophen dose from all sources = 75 mg/kg/day not to exceed 4 gram dicyclomine (BENTYL) tablet 20 mg (COMPLETED) 1259 (Given - Provider: Jayne Joshua RN) 20 mg, Oral, ONCE, On Wed08/07/15 at 1239 , For 1 dose, Recommended to take before meals. HYDROmorphone (DILAUDID) injection 1 mg (COMPLETED) 1030 (Given - Provider: Jayne Joshua RN) 1 mg, Intravenous, ONCE, 1 dose, Wed08/07/15 at 1004, Moderate to severe pain iopamidol (ISOVUE-370) 76% solution 500 mL (COMPLETED) 1204 (Given - Provider: Guera Spain - Comment: bulk) 500 mL, Intravenous, ONCE, 08/07/15 at 1159, For 1 dose lidocaine (XYLOCAINE) 2 % 15 mL, alum & mag hydroxide-simethicone (MYLANTA ES/MAALOX ES) 15 mL GI Cocktail (COMPLETED) 1249 (Given - Provider: Antonia Anguiano RN) 30 mL, Oral, ONCE, 08/07/15 at 1239, For 1 dose ondansetron (ZOFRAN) injection 4 mg (COMPLETED) 1021 (Given - Provider: Jayne Joshua RN) 4 mg, Intravenous, ONCE, for 2 Minutes, 08/07/15 at 1015, For 1 dose pantoprazole (PROTONIX) 40 mg IV push injection (COMPLETED) 1022 (Given - Provider: Jayne Joshua RN) 40 mg, Intravenous, ONCE, for 2 Minutes, 08/07/15 at 1004, For 1 dose, Reconstitute vial with 10 mL NS. Flush IV line with NS or D5W. Infuse IV push over at least 2 minutes. Flush line again with NS or D5W. documented in this encounter Care Teams Configuration Consultant Relationship Specialty Start Date End Date Carlos Chapman MD PCP - General Family Practice 02/06/14 04/29/19 documented as of this encounter
--- OUTSIDE RECORDS SUMMARY | 2022-03-31 16:57 | XMS_ITS | Encounter Summary ---
:1985 Author Organization [place] Address [address] [place] [address] Care Team Providers Name Role Phone Carlos Chapman MD Primary Care Provider [phone] Reason for Visit Rehab Therapy Integrated Services (Routine) - Closed Specialty Diagnoses / Procedures Referred By Contact Refer red To Contact Diagnoses Cancer Rehab PT//Fatigue Neuropathy, -Would prefer on days with other appts [facility] Procedures TREATMENT [address] [facility] [address] [place], [place] [address] Phone: Fax: Referral ID Status Reason Start Date Expiration Date Visits V isits Requested Authorized [facility] Closed 01/29/2015 05/30/[phone] ([id number]) Encounter Details Date Type Department Care Team Description 05/10/2015 Hospital Encounter [facility] Olivia Bejarano i, DO [facility] [address] [place], [place] [address] Rehabilitation Services Kacie Santiago, PT [address] [place] [address] [address] Social History Tobacco Use Types [...] capsule 12 capsule 1 01/02/201511/04 (VITAMIN D3) 62498 (50,000 Units) by UNITS mouth once a week capsuleIndications: Vitamin D deficiency fluticasone (FLONASE) Dewitt 1-2 sprays 16 g 1 02/06/20 15 06/18/2015 50 MCG/ACT nasal into both sprayIndications: nostrils daily Chronic rhinitis documented as of this encounter Progress Notes Kacie Santiago, PT - 06/27/2015 3:11 PM CST Outpatient Physical Therapy Discharge Note Patient: Ronn Hinkle : 1985 Beginning/End Dates of Reporting Period: eval 12/05/14 to 06/27/2015. Nathan was seen for 20 skilled PT sessions Referring Provider: Dr. Alivia Bejarano Therapy Diagnosis: decline in functional activity tolerance, postural impairments Client Self Report: From pt's last session 05/10/15 --continues to do YOGA but has not been to the [facility] this past week. 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 Had increased anterior chest wall and abdominal area tightness followign this. He is taking cannibus by pill form now stating it helps with his pain and also muscle tightness/spasms of his hands especially. Objective Measurements: Please refer to PN dated 05/10/15 Outcome Measures (most recent score): Not able to retest FACIT due to pt not showing up for last appointments Goals: GOALS NOT MET PLEASE REFER TO PN DATED 05/10/15 Goal Identifier 1 (03/07/15 reports decrease by 35-40%) Goal Description Nathan to report decrease in his pain by atleast 50% or greater to allow improved functional mobility and quality of life. Target Date 06/29/15 Date Met Progress: Goal Identifier 2 (362.7 m 03/07/15 1190 feet) Goal Description Nathan to ambulate 600 meters or greater in 6 minutes to demonstrate good tolerance toactivity for increased tolerane to ADL/s Target Date 06/29/15 Date Met Progress: Goal Identifier 3 Goal Description Nathan to be independent in HEP to safely address his impairments at d/c. Target Date 06/29/15 Date Met Progress: Goal Identifier 4 Goal Description Nathan to tolerate 20 minutes of continuous exercise without significant change in vitals and without increse in pain that day or day after to demonstrate improved tolerance to activity for improved quality of life and funciton. Target Date 06/29/15 Date Met Progress: Goal Identifier 5 Goal Description Nathan to have equal LE length in supine atleast 75% of the time to demonstrate improved postural alignment and assist in decreasing back and LE pain. Target Date 06/29/15 Date Met Progress: Progress Toward Goals: Progress this reporting period: Nathan made gradual progress to goals with skilled PT. He did not return to PT for his last scheduled appointments. Barriers to progress include his comorbidities as well as not returning to appts. Please refer to last PN as it was written on the last time pt was actually seen and nothing has changed since then. Plan: Discharge from therapy. Discharge: Reason for Discharge: Patient has failed to show for his appointments. Equipment Issued: [facility] Discharge Plan: Patient to continue home program. It was noted through [facility] that pt has started PT for back pain. Per MD notes pt had c/o back pain after falling 05/24/15, Per notes from therapy appt pain was due to his back being latanya when throwing a ball with his son. ID GEAR TESTER Kacie Santiago, PT - 05/10/2015 5:23 PM CST Outpatient Physical Therapy Progress Note Patient: Ronn Hinkle : 1985 Beginning/End Dates of Reporting Period: 12/05/14 to 05/10/2015 Nathan has been seen For a total of 20 skilled PT sessions Referring Provider: Dr. Bettina Bejarano Therapy Diagnosis: decline in functional activity tolerance, postural impairments Client Self Report: continues to do YOGA but has not been to the [facility] this past week. 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 Had increased anterior chest wall and abdominal area tightness followign this. He is taking cannibus by pill form now stating it helps with his pain and also muscle tightness/spasms of his hands especially. In general reports improvement in his pain and function but still is limited by muscle and joint pains Objective Measurements: TM - Nathan has tolerated using the TM for up to 13 minutes, no elevation and speed 1.8 mph. He has had less c/o of muscle tightness trunk and LE with gait. 6 minute walk 12/07/14 1052 ft /320.65 meters, At 3 1/2 min R hip tightness, L neck tightness . At 4 1/2 minutes reports feeling of dizziness and blurry vision 03/07/15 1190 feet, no device, no c/o dizziness /lightheadedness. At 4 1/2 min Reported some R sided leg tightness and arm tightness. Goals: Goal Identifier 1 (03/07/15 reports decrease by 35-40%) Goal Description Nathan to report decrease in his pain by atleast 50% or greater to allow improved functional mobility and quality of life. Target Date 06/29/15 Date Met in progress Progress: 03/07/15 reported decrease in pain by 35-40%. Pain fluctuates each day. He gets relief from the Cannibus. We trialled TENS unit, originally he thought that it was helpful but then thought thait contributed to more discomfort. Trial had been on low back. Goal Identifier 2 Goal Description Nathan to ambulate 600 meters or greater in 6 minutes to demonstrate good tolerance toactivity for increased tolerane to ADL/s Target Date 06/29/15 Date Met in progress Progress:as below - distance well below the goal of 600 meters. Goal Identifier 3 Goal Description Nathan to be independent in HEP to safely address his impairments at d/c. Target Date 06/29/15 Date Met in progress Progress: Performing HEP, has incorporated water classes and YOGA at the [facility]. Both low level. Education and focus has also been on symptom management. Goal Identifier 4 Goal Description Nathan to tolerate 20 minutes of continuous exercise without significant change in vitals and without increse in pain that day or day after to demonstrate improved tolerance to activity for improved quality of life and funciton. Target Date 06/29/15 Date Met in progress Progress: TM 13 minutes. Goal Identifier 5 Goal Description Nathan to have equal LE length in supine atleast 75% of the time to demonstrate improved postural alignment and assist in decreasing back and LE pain. Target Date 06/29/15 Date Met in progress Progress: Improved alignment. ALignment affected by muscle/soft tissue and fascial tightness abdominal area- history of surgery to abdominal and pelvic region with his cancer. His mobility is improving. No longer as many complaints globally and more localized to originating area of fascial tightness. Progress Toward Goals: Progress this reporting period: gradual progress to goals. Nathan is more aware of energy conservation and management of his symptoms. He has initiated attending classes at local [facility]. He has less c/o tightness in legs or neck with gait. Continues to have fascial /soft tissue tightness abdominal area, deeper fascial layers abdomen, Anterior Lumbar spine (tumor removed). Nathan is appropriate for continued PT intervention to further improve his function and decrease his pain level. Barriers to treatment include his polymyalgia and side affects from treatment of his cancer. He is motivated and wishes to continue with PT. Education has also been completed regarding symptom management and lifestyle changes. Plan: Continue therapy per current plan of care. Discharge: No ID GEAR TESTER documented in this encounter Miscellaneous Notes Addendum Note - Kacie Santiago PT - 06/27/2015 3:28 PM CSTEncounter addended by: Kacie Santiago PT on: 06/27/2015 3:28 PM
Documentation filed: Episodes, Clinical Notes, Notes Section ID GEAR TESTER Addendum Note - Kacie Santiago PT - 05/13/2015 8:31 AM CSTEncounter addended by: Kacie Santiago PT on: 05/13/2015 8:31 AM
Documentation filed: Clinical Notes, Inpatient Document Flowsheet ID GEAR TESTER documented in this encounter Plan of Treatment Not on filedocumented as of this encounter Visit Diagnoses Not on filedocumented in this encounter Care Teams Sulfuric Acid Plant Supervisor Relationship Specialty Start Date End Date Carlos Chapman MD PCP - General Family Practice 02/06/14 04/29/19 documented as of this encounter
--- OUTSIDE RECORDS SUMMARY | 2022-03-31 16:57 | XMS_ITS | Encounter Summary ---
:1985 Author Organization [place] Address [address] [place] [address]. [place] [address] Care Team Providers Name Role Phone Carlos Chapman MD Primary Care Provider [phone] Reason for Visit Reason Comments Clinic Care Coordination - Initial Care Team Encounter Details Date Type Department Care Team Description 11/06/2015 Care Coordination [facility] Carlos Chapman Care Care Coordination MD Saw Coordination - [address] [place] [id number] [place] Initial ( ); Care [place] [phone] [id number] Social History Tobacco Use Types Packs/Day Years Used Date Smoking Tobacco: Never Smokeless Tobacco: Never Alcohol Use Standard Drinks/Week Comments Yes 0 (1 standard drink = 0.6 oz pure alcoho l) 2 mixed drinks, 2-3 days week Sex Assigned at Date Recorded Not on file documented as of this encounter Progress Notes Erlin Osman - 11/06/2015 2:28 PM CDT Care Coordination Initial Assessment Outreach to patient. Introduced self as Security Systems Integrator and explained Care Coordination role and the concept of Health Usp. Identity verified. PCP: Carlos Chapman Referral Source: PCP Utilization: No concerns at this time Health Maintenance Reviewed: NA Functional Status: Transportation: Family provides transportation and Needs information on transportation services THEATER PROJECTIONIST/Home Care: No - SW and pt had a conference call with Terrance Ruiz MA to discuss other options for THEATER PROJECTIONIST services. Terrance Ruiz MA commissary representative (Lashanda) indicated that following agencies: - [facility] in [place] - [facility] in [place] - [facility] in [place] Psychosocial: Insurance: Pt has [facility] insurance. Support System Patient/Caregivers: Pt has support from family and friends. Living Situation: Pt resides with family (9 y.o and 5 y.o). Gaps: Functional: SW and pt spoke to Kacie and Lashanda at [facility] who stated that they would have an assessment completed by Visiting RNs. Pt needs to decide on his preference with THEATER PROJECTIONIST agencies: - [facility] - [facility] in [place] - [facility] in [place] Resources Given: Names of potential THEATER PROJECTIONIST services. SW contact information. Plan: 1. Pt will contact the THEATER PROJECTIONIST agency of his choice to determine if they are taking new patients. 2. Pt will complete assessment with Visiting RNs. 3. SW will plan to follow-up in 5-7 business days, if not contacted prior. DENYS Stein, SERGE Social Work - Security Systems Integrator [facility] documented in this encounter Plan of Treatment Not on filedocumented as of this encounter Visit Diagnoses Not on filedocumented in this encounter Care Teams Home Aide Relationship Specialty Start Date End Date Carlos Chapman MD PCP - General Family Practice 02/06/14 04/29/19 documented as of this encounter
--- OUTSIDE RECORDS SUMMARY | 2022-03-31 16:57 | XMS_ITS | Encounter Summary ---
:1985 Author Organization Mobile Address [address] [facility] [place] [address] Care Team Providers Name Role Phone Carlos Chapman MD Primary Care Provider [phone] Encounter Details Date Type Department Care Team Description 06/26/2015 Therapy Visit [facility] Ashely Hernández Bilat eral low back Rehabilitation Services PT pain, with sciatica [address] presence unspecified [address] (Primary Dx) [place] [address] [place], [place] [phone] [id number] Social History Tobacco Use Types Packs/Day Years Used Date Smoking Tobacco: Never Smokeless Tobacco: Never Alcohol Use Standard Drinks/Week Comments Yes 0 (1 standard drink = 0.6 oz pure alcoho l) 2 mixed drinks, 2-3 days week Sex Assigned at Date Recorded Not on file documented as of this encounter Progress Notes Ashely Hernández, PT - 06/26/2015 11:30 AM CST [place] [facility] Initial Evaluation Subjective: HPI Comments: 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 He has been doing therapy ever since last Fall. He latanya his low back where his tumor was last Mitch when he was throwing a ball with his son. 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 He is noticing more spasm/twitching and pain. Previously was on medical cannabis and now unable to afford it. He is on prednisone now. He gets coldness/tingling in his feet and hands with neuropathy. With his pain/spasming his feet/hands get hot/clammy. Pt reports that he does a lot of stretching - mostly in flexed or rotation lumbar positions and feels like it helps loosen me up but no change in radicular sx. Reports benefit of traction in the pastand likes to have someone pull on one leg at a time in supine position to help him feel stretched out. Ronn Hinkle is a 29 year old male with a lumbar condition. Condition occurred with: Other reason.Condition occurred: other. This is a chronic condition 05/24/2015. Patient reports pain: Lumbar spine right and lumbar spine left. Radiates to: Gluteals right, foot left, lower leg left and thigh right. Pain is described as sharp and is intermittent and reported as 8/10. Associated symptoms: Loss of motion/stiffness, numbness, tingling and loss of strength. Pain is the same all the time. Symptoms are exacerbated by sitting, walking, lifting, carrying and standing Relieved by: lying down for 3 hrs and the pain is relieved in his low back/legs. Since onset symptoms are gradually worsening. General health as reported by patient is fair. Pertinent medical history includes: Cancer. Medical allergies: no. Other surgeries include: Cancer surgery (testicular cancer and ma ss on lumbar spine). Current medications: Anti-inflammatory. 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 Primary job tasks include: Prolonged sitting and driving. Red flags: Cold/hot extremity (a result of chemo). Objective: System Physical Exam Vani Lumbar Evaluation Posture: Sitting: poor Correction of Posture: worse Movement Loss: Flexion (Flex): min and pain Extension (EXT): mod and pain Side Atlas R (SG R): mod and pain Side Atlas L (SG L): min and pain Test Movements: EIL: During: peripheralizing After: peripheralizing Repeat EIL: During: peripheralizing After: peripheralizing Conclusion lumbar: unable to continue testing today due to severeness of symptoms so inconclusive. ROS Assessment/Plan: Patient is a 29 year old male with lumbar complaints. Patient has the following significant findings with corresponding treatment plan. Diagnosis 1: LBP Pain - mechanical traction, directional preference exercise and home program Decreased ROM/flexibility - manual therapy, therapeutic exercise and home program Decreased strength - therapeutic exercise, therapeutic activities and home program Impaired muscle performance - neuro re-education and home program Decreased function - therapeutic activities and home program Impaired posture - neuro re-education and home program Previous and current functional limitations: (See Goal Flow Sheet for this information) Short term and nursing home goals: (See Goal Flow Sheet for this information) Communication ability: Patient appears to be able to clearly communicate and understand verbal and written communication and follow directions correctly. Treatment Explanation - The following has been discussed with the patient: RX ordered/plan of care Anticipated outcomes Possible risks and side effects This patient would benefit from PT intervention to resume normal activities. Rehab potential is fair due to significant co-morbidities. Frequency: 1 X week, once daily Duration: for 4-6 weeks Discharge Plan: Achieve all LTG. Independent in home treatment program. Reach maximal therapeutic benefit. Please refer to the daily flowsheet for treatment today, total treatment time and time spent performing 1:1 timed codes. CREW LEADER documented in this encounter Plan of Treatment Not on filedocumented as of this encounter Procedures Procedure Name Priority Date/Time Associated Diagnosis Comme nts ZZC MANUAL THER Routine 06/26/2015 1:49 PM FARM CREW LEADER Bilateral low b ack TECH,1+REGIONS,EA 15 pain, with sciatica MIN presence unspecified documented in this encounter Visit Diagnoses Diagnosis Bilateral low back pain, with sciatica p resence unspecified - Primary documented in this encounter Care Teams Oil Well Service Unit Operator Relationship Specialty Start Date End Date Carlos Chapman MD PCP - General Family Practice 02/06/14 04/29/19 documented as of this encounter
--- OUTSIDE RECORDS SUMMARY | 2022-03-31 16:57 | XMS_ITS | Encounter Summary ---
:1985 Author Organization [place] Address [address] [facility] [place] [address] Care Team Providers Name Role Phone Carlos Chapman MD Primary Care Provider [phone] Reason for Visit Reason Onset Date Comments Sinus Problem 07/03/2015 RN protocol Sinus in fection Encounter Details Date Type Department Care Team Description 07/03/2015 Telephone [facility] Carlos Chapman Sinus Pro blem (RN Clinic Anjel Spring MD protocol Sinus [facility], [address] [place] [address] infection) [address] [place] [address] [place], [place] [phone] (Wo rk) [address] [phone] Social History Tobacco Use Types Packs/Day Years Used Date Smoking Tobacco: Never Smokeless Tobacco: Never Alcohol Use Standard Drinks/Week Comments Yes 0 (1 standard drink = 0.6 oz pure alcoho l) 2 mixed drinks, 2-3 days week Sex Assigned at Date Recorded Not on file documented as of this encounter Miscellaneous Notes Telephone Encounter - Margareth Devries RN - 07/03/2015 3:50 PM CST RN Sinusitis Treatment Protocol: ages 16 and up Ronn Hinkle, a 29 year old male, is having symptoms reviewed for possible sinus infection. ASSESSMENT/PLAN: 1. Antibiotic treatment is indicated as onset of symptoms have been more than 10 days. Amoxicillin 1000mg by mouth 3 times per day x10d (this high dose is evidence based, Toni 2011) 2. Education: ibuprofen or acetaminophen as directed on the bottle, over the counter decongestant, Nasal saline rinse, (Neti-pot or a nasal saline spray is preferred to Afrin nasal spray), Afrin nasal spray no longer than 5 days. 3. Follow-up: Contact provider's wireless construction manager if symptoms do not improve after 3 days of antibiotic treatment or if symptoms return after antibiotic therapy is complete. 4. Patient verbalized understanding of this plan and is agreeable. SUBJECTIVE: Symptoms: Facial pain, especially if worse with position change or cough, Fever, Poor response to decongestants and increased sinus pressure. In addition notes: None Shortness of breath: NO Onset of symptoms was 10 day(s) ago. Treatment measures tried include Fluids, OTC meds, Rest and flonase. Course of illness is improving. Predisposing conditions include: None Complicating Factors and Serious Symptoms: Patient reports: NONE Patient denies: Fever > 102.5 Orbital pain Periorbital swelling or erythema Severe facial swelling or erythema Severe neck pain This being the worse headache the patient has ever experienced Vision changes COPD (chronic obstructive pulmonary disease) ALLERGIES: No Known Allergies OBJECTIVE: Weight: 0 lbs 0 oz NURSING PLAN: Nursing advice to patient take medications as prescribed. RECOMMENDED DISPOSITION: Home care advice - take medications as prescribed. Will comply with recommendation: Yes Encounter handled by: Nurse Triage. Margareth Devries RN [employer] documented in this encounter Plan of Treatment Not on filedocumented as of this encounter Visit Diagnoses Diagnosis Acute sinusitis with symptoms > 10 days - Primary Acute sinusitis, unspecified documented in this encounter Care Teams Immunopathologist Relationship Specialty Start Date End Date Carlos Chapman MD PCP - General Family Practice 02/06/14 04/29/19 documented as of this encounter
--- OUTSIDE RECORDS SUMMARY | 2022-03-31 16:57 | XMS_ITS | Encounter Summary ---
:1985 Author Organization [place] Address [address] [facility] [place] [address] Care Team Providers Name Role Phone Carlos Chapman MD Primary Care Provider Reason for Visit Reason Onset Date Comments Refill Request 10/22/2015 ergocalciferol Encounter Details Date Type Department Care Team Description 10/22/2015 Refill [facility] Mic Hester Refill Request Clinic [place] DANIKA Gramajo (ergocalciferol) [facility], [address] [place] [address] [address] [place] [address] [place], [place] [phone] (Wo rk) [address] [phone] Social History Tobacco Use Types Packs/Day Years Used Date Smoking Tobacco: Never Smokeless Tobacco: Never Alcohol Use Standard Drinks/Week Comments No 0 (1 standard drink = 0.6 oz pure alcoho l) 2 mixed drinks, 2-3 days week Sex Assigned at Date Recorded Not on file documented as of this encounter Miscellaneous Notes Telephone Encounter - Margareth Devries RN - 10/23/2015 8:24 AM CDT Spoke with patient. He is coming in today for an ill visit and will get his blood work then. Margareth Devries RN Telephone Encounter - Mic Hester PA-C - 10/23/2015 6:46 AM CDT Lets have him come in for a check of vitamin D first to make sure levels are OK. See if he can do a lab only appointment. Then I'll refill. Uriel, ajp Telephone Encounter - Joleen Dominguez - 10/22/2015 1:00 PM CDT Ergocalciferol Last Written Prescription Date: 01/02/15 Last Fill Quantity: 12, # refills: 1 Last Office Visit with [facility], [facility] or [facility] prescribing provider: 06/24/15 BP Readings from Last 3 Encounters: 08/07/15 153/105 06/24/15 138/90 03/19/15 128/88 AST 31 08/07/2015 ALT 80 08/07/2015 CREATININE Date Value Ref Range Status 08/07/2015 0.99 0.66 - 1.25 mg/dL Final Joleen Dominguez [facility] [phone] documented in this encounter Plan of Treatment Not on filedocumented as of this encounter Results Vitamin D Deficiency (11/04/2015 12:18 PM CDT) athologist Signature Vitamin D 24 20 - 75 [facility] Deficiency ug/L ID [facility] Comment: Season, race, dietary intake, and treatm ent affect the concentration of 47-qzbfhhd-Ovfcwfe D. Values may decrea se during winter [...] (specimen) PM CDT 12:19 PM CDT Mic Hester PA-C LAB - BLOOD ORDERABLES Performing Organization Address City/State/ZIP Code Phon e Number [facility] [address] documented in this encounter Visit Diagnoses Diagnosis Vitamin D deficiency - Primary Unspecified vitamin D deficiency documented in this encounter Care Teams Wind Turbine Installer Relationship Specialty Start Date End Date Carlos Chapman MD PCP - General Family Practice 02/06/14 04/29/19 documented as of this encounter
--- OUTSIDE RECORDS SUMMARY | 2022-03-31 16:57 | XMS_ITS | Encounter Summary ---
:1985 Author Organization [place] Address [address] [place] [address] Care Team Providers Name Role Phone Carlos Chapman MD Primary Care Provider [phone] Reason for Visit Reason Onset Date Comments Erroneous encounter-disregard 11/06/2015 Encounter Details Date Type Department Care Team Description 11/06/2015 Telephone [facility] Pain Management [facility] Pain Management Program, [facility] er-disregard [address] [place], [place] [address] Social History Tobacco Use Types Packs/Day Years [...] filedocumented in this encounter Care Teams Metal Loader Relationship Specialty Start Date End Date Carlos Chapman MD PCP - General Family Practice 02/06/14 04/29/19 documented as of this encounter
--- OUTSIDE RECORDS SUMMARY | 2022-03-31 16:57 | XMS_ITS | Encounter Summary ---
:1985 Author Organization [place] Address [facility] [place] [address] Care Team Providers Name Role Phone Carlos Chapman MD Primary Care Provider [phone] Encounter Details Date Type Department Care Team Description 04/15/2015 Medical Correspondence [facility] Scan, [place], ORDER [facility] Non-Provider TENS UNIT Health Information Management-RAJINDER [address] [place] [address] Social History Tobacco Use Types Packs/Day Years [...] on filedocumented in this encounter Care Teams Memorial Adviser Relationship Specialty Start Date End Date Carlos Chapman MD PCP - General Family Practice 02/06/14 04/29/19 documented as of this encounter
--- OUTSIDE RECORDS SUMMARY | 2022-03-31 16:57 | XMS_ITS | Encounter Summary ---
:1985 Author Organization [place] Address [address] [place] [address]. [place] [address] Care Team Providers Name Role Phone Carlos Chapman MD Primary Care Provider [phone] Reason for Referral TA Physical Therapy - Closed Specialty Diagnoses / Procedures Referred By Contact Refer red To Contact Diagnoses Polymyalgia (H) Muscle stiffness Carlos Chapman, [facility] [place] [facility] [address] [address] [place] [address] Phone: [phone] Referral ID Status Reason Start Date Expiration Date Visits Requ ested Visits Authorized [id number] Closed 03/11/2015 03/10/2016 1 1 Reason for Visit Reason Onset Date Comments Referral 03/08/2015 Yoga Encounter Details Date Type Department Care Team Description 03/08/2015 Telephone [facility] Carlos Chapman, Referral (Yoga) Anjel BAEZA [address] [facility], [address] [facility] [address] [place] [address] [place] [address] [phone] Social History Tobacco Use Types Packs/Day Years Used Date Smoking Tobacco: Never Smokeless Tobacco: Never Alcohol Use Standard Drinks/Week Comments Yes 0 (1 standard drink = 0.6 oz pure alcoho l) 2 mixed drinks, 2-3 days week Sex Assigned at Date Recorded Not on file documented as of this encounter Miscellaneous Notes Telephone Encounter - Margareth Devries RN - 03/19/2015 4:36 PM CDT Referral re-faxed to a different number given by patient. Margareth Devries RN Telephone Encounter - Margareth Devries RN - 03/11/2015 4:23 PM CDT Faxed to [facility]. Margareth Devries RN Telephone Encounter - Carlos Chapman MD - 03/11/2015 2:07 PM CDT Referral printed and ready to fax Carlos Chapman MD Telephone Encounter - Mariana Soliz - 03/08/2015 11:58 AM CDT Pt's physical therapist is suggesting Yoga for the patient to help loosen and strengthen the musclesthat are effected. PT's insurance needs a referral with explanation from him primary. Please fax to # below [employer] documented in this encounter Plan of Treatment Scheduled Referrals Name Type Priority Associated Diagnoses Order S chedule TA PT, HAND, AND Referral Routine Polymyalgia (H ) Ordered: 03/11/2015 CHIROPRACTIC REFERRAL Muscle stiffness documented as of this encounter Visit Diagnoses Diagnosis Polymyalgia (H) - Primary Polymyalgia rheumatica Muscle stiffness Unspecified disorder of muscle, ligament , and fascia documented in this encounter Care Teams Architectural Drafting Instructor Relationship Specialty Start Date End Date Carlos Chapman MD PCP - General Family Practice 02/06/14 04/29/19 documented as of this encounter
--- OUTSIDE RECORDS SUMMARY | 2022-03-31 16:57 | XMS_ITS | Encounter Summary ---
:1985 Author Organization [place] Address [address] [facility] [place] [address] Care Team Providers Name Role Phone Carlos Chapman MD Primary Care Provider [phone] Reason for Referral TA Physical Therapy - Closed Specialty Diagnoses / Procedures Referred By Contact Refer red To Contact Diagnoses Bilateral low back pain with left-sided sciatica Mic Hester, [facility] [place] [address] [place] [address] [place] [address] Phone: [phone] Referral ID Status Reason Start Date Expiration Date Visits Requ ested Visits Authorized [id number] Closed 06/24/2015 06/23/2016 1 1 ING CARPENTER Reason for Visit Reason Comments Back Pain Fall on ice 05/24/15 Encounter Details Date Type Department Care Team Description 06/24/2015 Office Visit [facility] Mic Hester [facility] low back Clinic Anjel Gramajo PA-C pain with left-sided [address] [address] [address] sciatica (Primary Dx) [facility], [address] [place] [address] [place], [place] [phone] (Wo rk) [address] [phone] Social History Tobacco Use Types Packs/Day Years Used Date Smoking Tobacco: Never Smokeless Tobacco: Never Alcohol Use Standard Drinks/Week Comments Yes 0 (1 standard drink = 0.6 oz pure alcoho l) 2 mixed drinks, 2-3 days week Sex Assigned at Date Recorded Not on file documented as of this encounter Last Filed Vital Signs Vital Sign Reading Time Taken Comments Blood Pressure 138/90 06/24/2015 1:58 PM FRAMING CARPENTER Pulse 88 06/24/2015 1:58 PM FRAMING CARPENTER Temperature 36.9 ??C (98.4 ??F) 06/24/2015 1:58 PM FRAMING CARPENTER Respiratory Rate 20 06/24/2015 1:58 PM FRAMING CARPENTER Oxygen Saturation - - Inhaled Oxygen Concentration - - Weight 94.3 kg (208 lb) 06/24/2015 1:58 PM FRAMING CARPENTER Height 170.2 cm (5' 7) 06/24/2015 1:58 PM FRAMING CARPENTER Body Mass Index 32.58 06/24/2015 1:58 PM FRAMING CARPENTER documented in this encounter Progress Notes Mic Hester PA-C - 06/24/2015 1:50 PM CST HPI SUBJECTIVE: Ronn Hinkle is a 29 year old male who presents to clinic today for the following health issues: Back Pain ?? Duration: 05/24/15 Specific cause: fall ?? Description: Location of pain: low back bilateral Character of pain: tight and constant Pain radiation:radiates into the right buttocks and radiates into the left hip - left foot New numbness or weakness in legs, not attributed to pain: YES- think its worse, more twitching, fatigue ?? Intensity: Currently 6/10, At its worst 10/10 ?? History: Pain interferes with job: Not applicable History of back problems: previous spinal surgery - tumor removed 1998 Any previous MRI or X-rays: Yes--at all over. Date see notes Sees a specialist for back pain: No Therapies tried without relief: Yoga, chiropractor and stretch ?? Alleviating factors: Improved by: marijuana and stretch ?? Precipitating factors: Worsened by: Bending, Standing, Sitting and Walking ?? Functional and Psychosocial Screen (Shaylee STarT Back): Not performed today ?? Accompanying Signs & Symptoms: Risk of Fracture: None Risk of Cauda Equina: None Risk of Infection: None Risk of Cancer: History of cancer Risk of Ankylosing Spondylitis: Onset at age <35, male, AND morning back stiffness. no Fell one month ago- not getting better. Was playing with son. Went to chiropractor for two visits which did not help. With initial fall pain low back both sides- has tried ice and heat- neither consistently helpful. Uses medical cannabis. Will not take any other OTC pain meds. Takes zantac twice daily. Has been taking it easy, going to physical therapy for other health reasons. Fell off top of semi- 2010. Has been on disability due to this. Problem list and histories reviewed & adjusted, as indicated. Additional history: as documented Problem list, Medication list, Allergies, and Medical/Social/Surgical histories [facility] in [facility] andupdated as appropriate. ROS: Constitutional, HEENT, cardiovascular, pulmonary, gi and gu systems are negative, except as otherwise noted. OBJECTIVE: BP 138/90 mmHg Pulse 88 Temp(Src) 98.4 ??F (36.9 ??C) (Oral) Resp 20 Ht 5' 7 (1.702 m) Wt208 lb (94.348 kg) BMI 32.57 kg/m2 Body mass index is 32.57 kg/(m^2). GENERAL: healthy, alert and no distress NEURO: Normal strength and tone, mentation intact and speech normal Comprehensive back pain exam: No tenderness, Pain limits the following motions: forward flexion, Lower extremity strength functional and equal on both sides, Lower extremity reflexes within normal limits bilaterally, Lower extremity sensation normal and equal on both sides and Straight leg raise negative bilaterally PSYCH: mentation appears normal, affect normal/bright Diagnostic Test Results: none ASSESSMENT/PLAN: 1. Bilateral low back pain with left-sided sciatica - TA PT, HAND, AND CHIROPRACTIC REFERRAL - predniSONE (DELTASONE) 20 MG tablet; Take 3 tabs (60 mg) orally daily for 3 days, 2 tabs (40 mg) orally daily for 3 days, 1 tab (20 mg) orally daily for 3 days, then 1/2 tab (10 mg) orally for 3 daysDispense: 20 tablet; Refill: 0 Rtc if sxs change, worsen or fail to resolve with above tx. Mic Hester PA-C [facility] ROS Physical Exam ING CARPENTER documented in this encounter Nursing Notes Saniya Goetz MA - 06/24/2015 2:00 PM CST Chief Complaint Patient presents with ??? Back Pain ??? Fall on ice 05/24/15 Initial BP 138/90 mmHg Pulse 88 Temp(Src) 98.4 ??F (36.9 ??C) (Oral) Resp 20 Ht 5' 7 (1.702m) Wt 208 lb (94.348 kg) BMI 32.57 kg/m2 Estimated body mass index is 32.57 kg/(m^2) as calculated from the following: Height as of this encounter: 5' 7 (1.702 m). Weight as of this encounter: 208 lb (94.348 kg). BP completed using cuff size: large Saniya Goetz MA ING CARPENTER documented in this encounter Plan of Treatment Scheduled Referrals Name Type Priority Associated Diagnoses Order S chedule TA PT, HAND, AND Referral Routine Bilateral low back Orde red: 06/24/2015 CHIROPRACTIC REFERRAL pain with left-side d sciatica documented as of this encounter Visit Diagnoses Diagnosis Bilateral low back pain with left-sided sciatica - Primary documented in this encounter Care Teams News Clipping Cutter Relationship Specialty Start Date End Date Carlos Chapman MD PCP - General Family Practice 02/06/14 04/29/19 documented as of this encounter
--- OUTSIDE RECORDS SUMMARY | 2022-03-31 16:58 | XMS_ITS | Encounter Summary ---
:1985 Author Organization [place] Address [address] [place] [address] Care Team Providers Name Role Phone Carlos Chapman MD Primary Care Provider [phone] Reason for Visit Rehab Therapy Integrated Services (Routine) - Closed Specialty Diagnoses / Procedures Referred By Contact Refer red To Contact Diagnoses Cancer Rehab PT//Fatigue Neuropathy, -Would prefer on days with other appts [facility] Procedures TREATMENT [address] [facility] [address] [place], [place] [address] Phone: Fax: Referral ID Status Reason Start Date Expiration Date Visits V isits Requested Authorized [facility]-PT/OT/INSPECTOR AND HAND PACKAGER Closed 01/29/2015 05/30/2015 365 365 ([id number]) Encounter Details Date Type Department Care Team Description 02/05/2015 Hospital Encounter [facility] Olivia Bejarano i, DO [facility] [address] [place], [place] [address] Rehabilitation Services Bela Snyder, PT [id number] [address] Social History Tobacco Use Types [...] capsule 12 capsule 1 01/02/201511/04 (VITAMIN D3) 62216 (50,000 Units) by UNITS mouth once a week capsuleIndications: Vitamin D deficiency DULoxetine (CYMBALTA) Take 1 capsule 30 capsule 0 01/01/2015 03/19/2015 30 MG (30 mg) by mouth capsuleIndications: daily Polymyalgia (H), Muscle stiffness fluticasone (FLONASE) [place] 1-2 sprays 16 g 1 02/06/20 15 06/18/2015 50 MCG/ACT nasal into both sprayIndications: nostrils daily Chronic rhinitis documented as of this encounter Plan of Treatment Not on filedocumented as of this encounter Visit Diagnoses Not on filedocumented in this encounter Care Teams Security Installation Technician Relationship Specialty Start Date End Date Carlos Chapman MD PCP - General Family Practice 02/06/14 04/29/19 documented as of this encounter
--- OUTSIDE RECORDS SUMMARY | 2022-03-31 16:58 | XMS_ITS | Encounter Summary ---
:1985 Author Organization [facility] Address [facility] [place] [address] Care Team Providers Name Role Phone Carlos Chapman MD Primary Care Provider [phone] Reason for Visit Reason Onset Date Comments Patient Request for Note/Letter 01/30/2015 Court Encounter Details Date Type Department Care Team Description 01/30/[address] [facility] Carlos Chapman Patient R equest for Clinic Anjel Spring MD Note/Letter (Court) [address] [place] [address] [place], [place] [phone] (Wo rk) [address] [phone] Social History Tobacco Use Types Packs/Day Years Used Date Smoking Tobacco: Never Smokeless Tobacco: Never Alcohol Use Standard Drinks/Week Comments Yes 0 (1 standard drink = 0.6 oz pure alcoho l) 2 mixed drinks, 2-3 days week Sex Assigned at Date Recorded Not on file documented as of this encounter Miscellaneous Notes Telephone Encounter - Mariana Soliz - 02/01/2015 8:33 AM CDT Letter emailed Mariana GUTIERREZ Senior Manufacturing Engineer [facility] Telephone Encounter - Margareth Devries RN - 01/31/2015 4:05 PM CDT Appointments verified in [facility]. Note placed on Dr. Mckay's desk for signature. Margareth Devries RN Telephone Encounter - Lelia Mckay MD - 01/31/2015 12:07 PM CDT If we can prove he is doing this, ok to write the letter and I will sign Telephone Encounter - Margareth Devries RN - 01/31/2015 9:08 AM CDT Patient calling back to check and see if the letter was written. Advised him that it was not addressed by Dr. Chapman before he left. He needs to have this letter by today. Is there any way you could write this letter for him? Margareth Devries RN Telephone Encounter - Margareth Devries RN - 01/30/2015 3:31 PM CDT Patient calling requesting a note to take to court stating he is currently in the Cancer Rehab program through [facility] which he attends 2-3 days per week. He is going to court with his ex- over child support and he needs to prove that he is doing this program. Please call [phone] if any questions. Please email letter to [email or web address]. Margareth Devries RN documented in this encounter Plan of Treatment Not on filedocumented as of this encounter Visit Diagnoses Not on filedocumented in this encounter Care Teams Records Tech Relationship Specialty Start Date End Date Carlos Chapman MD PCP - General Family Practice 02/06/14 04/29/19 documented as of this encounter
--- OUTSIDE RECORDS SUMMARY | 2022-03-31 16:58 | XMS_ITS | Encounter Summary ---
:1985 Author Organization [place] Address [address] [place] [address] Care Team Providers Name Role Phone Carlos Chapman MD Primary Care Provider [phone] Reason for Visit Rehab Therapy Integrated Services - Closed Specialty Diagnoses / Procedures Referred By Contact Refer red To Contact Diagnoses Neuropathy Fatigue [facility] [address] [place], [place] [address] Phone: Fax: Referral ID Status Reason Start Date Expiration Date Visits V isits Requested Authorized [facility]- PT/OT Closed 12/03/2014 01/28/2015 365 365 ([id number]) Encounter Details Date Type Department Care Team Description 01/14/2015 Hospital Encounter [facility] Olivia Bejarano i, DO [facility] [address] [place], [place] [address] Rehabilitation Services Francheska Singh, OT [facility] [address] [place] [address] [facility] [address] [place] [address] Social History Tobacco Use Types Packs/Day Years Used Date Smoking Tobacco: Never Smokeless Tobacco: Never Alcohol Use Standard Drinks/Week Comments Yes 0 (1 standard drink = 0.6 oz pure alcoho l) occ Sex Assigned at Date Recorded Not on file documented as of this encounter Medications at Time of Discharge Medication Sig Dispensed Refills Start Date End Date Cholecalciferol (VITAMIN Take by mouth 0 01/23/2015 D3 PO) daily cholecalciferol (VITAMIN Take 1 capsule 12 capsule 1 015 11/05/2015 D3) 01086 UNITS (50,000 Units) by capsuleIndications: mouth once a week Vitamin D deficiency DULoxetine (CYMBALTA) 30 Take 1 capsule 30 capsule 0 015 03/19/2015 MG capsuleIndications: (30 mg) by mouth Polymyalgia (H), Muscle daily stiffness gabapentin (NEURONTIN) 300 1 cap TID 360 capsule 0 01/10/20 15 01/23/2015 MG capsuleIndications: Cisplatin induced neuropathy (H) propranolol (INDERAL) 10 Take 1 tablet (10 30 tablet 0 12/2901/23/2015 MG tabletIndications: mg) by mouth 2 Palpitations times daily ranitidine (ZANTAC) 150 MG Take 1 tablet 30 tablet 0 201401/23/2015 tablet (150 mg) by mouth 2 times daily for 15 days documented as of this encounter Plan of Treatment Not on filedocumented as of this encounter Visit Diagnoses Not on filedocumented in this encounter Care Teams Automobile Appraiser Relationship Specialty Start Date End Date Carlos Chapman MD PCP - General Family Practice 02/06/14 04/29/19 documented as of this encounter
--- OUTSIDE RECORDS SUMMARY | 2022-03-31 16:58 | XMS_ITS | Encounter Summary ---
:1985 Author Organization [place] Address [address] [place] [address] Care Team Providers Name Role Phone Carlos Chapman MD Primary Care Provider [phone] Reason for Visit (Routine) - Closed Specialty Diagnoses / Procedures Referred By Contact Refer red To Contact Cardiology Diagnoses per Guy, palpitations, 7 days Zzrh Cardiac Test [facility] Procedures ZIOPATCH MONITOR [address] [facility] [address] [place], [place] [address] Phone: Fax: Referral ID Status Reason Start Date Expiration Date Visits Requ ested Visits Authorized [id number] Closed 01/25/2015 01/23/2016 1 1 Encounter Details Date Type Department Care Team Description 02/07/2015 Hospital Encounter [facility] Specialty Care Doctor, MD [facility] [address] [facility] [address] [place] [address] Social History Tobacco Use Types Packs/Day Years [...] capsule 12 capsule 1 01/02/201511/04 (VITAMIN D3) 91260 (50,000 Units) by UNITS mouth once a week capsuleIndications: Vitamin D deficiency DULoxetine (CYMBALTA) Take 1 capsule 30 capsule 0 01/01/2015 03/19/2015 30 MG (30 mg) by mouth capsuleIndications: daily Polymyalgia (H), Muscle stiffness fluticasone (FLONASE) [place] 1-2 sprays 16 g 1 02/06/20 15 06/18/2015 50 MCG/ACT nasal into both sprayIndications: nostrils daily Chronic rhinitis documented as of this encounter Plan of Treatment Not on filedocumented as of this encounter Procedures Procedure Name Priority Date/Time Associated Diagnosis Comme nts ZIO PATCH HOLTER Routine 02/07/2015 Palpitations Results for this procedure are in the resu lts section. documented in this encounter Results Zio Patch Monitor (02/07/2015) Narrative [facility] - 02/07/[address] [address] 02/07/2015 Patient: ??Ronn Hinkle Chart: [id number] : ??1985 Age: ??29 year old Sex: ??male Procedure: ??ZioPatch Monitor. [address] [employer] performing hook-up: ??Lauren Donohue Colton Tovar MD CV CARDIAC SERVICES ORDERABL ES Performing Organization Address City/State/ZIP Code Phon e Number [facility] documented in this encounter Visit Diagnoses Diagnosis Palpitations documented in this encounter Care Teams Vessel Slag Worker Relationship Specialty Start Date End Date Carlos Chapman MD PCP - General Family Practice 02/06/14 04/29/19 documented as of this encounter
--- OUTSIDE RECORDS SUMMARY | 2022-03-31 16:58 | XMS_ITS | Encounter Summary ---
:1985 Author Organization [place] Address [address] [place] [address] Care Team Providers Name Role Phone Carlos Chapman MD Primary Care Provider [phone] Reason for Visit Rehab Therapy Integrated Services (Routine) - Closed Specialty Diagnoses / Procedures Referred By Contact Refer red To Contact Diagnoses Cancer Rehab PT//Fatigue Neuropathy, -Would prefer on days with other appts [facility] Procedures TREATMENT 60 [facility] [address] [place], [place] [address] Phone: Fax: Referral ID Status Reason Start Date Expiration Date Visits V isits Requested Authorized [facility]-PT/OT/BOBBIN STRIPPER Closed 01/29/2015 05/30/2015 365 365 ([id number]) Encounter Details Date Type Department Care Team Description 02/05/2015 Hospital Encounter [facility] Olivia Bejarano i, DO [facility] [address] [place], [place] [address] Rehabilitation Services Francheska Singh, [facility] [address] [place] [address] [facility] [address] [place] [address] Social History Tobacco Use Types [...] capsule 12 capsule 1 01/02/201511/04 (VITAMIN D3) 43544 (50,000 Units) by UNITS mouth once a week capsuleIndications: Vitamin D deficiency DULoxetine (CYMBALTA) Take 1 capsule 30 capsule 0 01/01/2015 03/19/2015 30 MG (30 mg) by mouth capsuleIndications: daily Polymyalgia (H), Muscle stiffness fluticasone (FLONASE) [place] 1-2 sprays 16 g 1 02/06/20 15 06/18/2015 50 MCG/ACT nasal into both sprayIndications: nostrils daily Chronic rhinitis documented as of this encounter Plan of Treatment Not on filedocumented as of this encounter Visit Diagnoses Not on filedocumented in this encounter Care Teams A Operator Relationship Specialty Start Date End Date Carlos Chapman MD PCP - General Family Practice 02/06/14 04/29/19 documented as of this encounter
--- OUTSIDE RECORDS SUMMARY | 2022-03-31 16:58 | XMS_ITS | Encounter Summary ---
:1985 Author Organization [place] Address [address] [place] [address] Care Team Providers Name Role Phone Carlos Chapman MD Primary Care Provider [phone] Reason for Visit Rehab Therapy Integrated Services (Routine) - Closed Specialty Diagnoses / Procedures Referred By Contact Refer red To Contact Diagnoses Cancer Rehab PT//Fatigue Neuropathy, -Would prefer on days with other appts [facility] 60 [facility] [address] [place], [place] [address] Phone: Fax: Referral ID Status Reason Start Date Expiration Date Visits V isits Requested Authorized [facility]-PT/OT/SSDS MK 2 ADVANCED OPERATOR Closed 01/29/2015 05/30/2015 365 365 ([id number]) Encounter Details Date Type Department Care Team Description 02/21/2015 Hospital Encounter [facility] Olivia Bejarano i, DO [facility] [address] [place], [place] [address] Rehabilitation Services Kacie Santiago, PT [address] [place] [address] [address] Social History Tobacco Use Types [...] capsule 12 capsule 1 01/02/201511/04 (VITAMIN D3) 23152 (50,000 Units) by UNITS mouth once a week capsuleIndications: Vitamin D deficiency DULoxetine (CYMBALTA) Take 1 capsule 30 capsule 0 01/01/2015 03/19/2015 30 MG (30 mg) by mouth capsuleIndications: daily Polymyalgia (H), Muscle stiffness fluticasone (FLONASE) [place] 1-2 sprays 16 g 1 02/06/20 15 06/18/2015 50 MCG/ACT nasal into both sprayIndications: nostrils daily Chronic rhinitis documented as of this encounter Plan of Treatment Not on filedocumented as of this encounter Visit Diagnoses Not on filedocumented in this encounter Care Teams Corporate Licensed Broker Relationship Specialty Start Date End Date Carlos Chapman MD PCP - General Family Practice 02/06/14 04/29/19 documented as of this encounter
--- OUTSIDE RECORDS SUMMARY | 2022-03-31 16:58 | XMS_ITS | Encounter Summary ---
:1985 Author Organization [place] Address [address] [place] [address] Care Team Providers Name Role Phone Arturo Ng MD Primary Care Provider [phone] Reason for Referral - Closed Specialty Diagnoses / Procedures Referred By Contact Refer red To Contact Diagnoses Palpitations Colton Callaway MD [address] [facility] [address] [place] [address] Referral ID Status Reason Start Date Expiration Date Visits Requ ested Visits Authorized [id number] Closed 02/22/2015 02/22/2016 1 1 Reason for Visit Reason Comments Palpitations EP consultation Shortness of Breath CV Cardio consult - Closed Specialty Diagnoses / Procedures Referred By Contact Refer red To Contact Diagnoses Palpitations Mic Hester [facility] DANIKA [address] [place] [address] [address] [place] [address] [place] [address] Phone: [phone] Fax: Referral ID Status Reason Start Date Expiration Date Visits Requ ested Visits Authorized [id number] Closed 01/09/2015 01/09/2016 1 1 Encounter Details Date Type Department Care Team Description 01/23/[address] [facility] Salvatore Hester PA-C [address] [place] [address] Dizziness (Primary Dx); Heart Clinic Colton Maynard MD [address] [place] [address] CARDIOVASCULAR SCREENING; LDL GOAL LESS THAN 160; [address] [place] [id number] Social History Tobacco Use Types Packs/Day Years Used Date Smoking Tobacco: Never Smokeless Tobacco: Never Alcohol Use Standard Drinks/Week Comments Yes 0 (1 standard drink = 0.6 oz pure alcoho l) 2 mixed drinks, 2-3 days week Sex Assigned at Date Recorded Not on file documented as of this encounter Last Filed Vital Signs Vital Sign Reading Time Taken Comments Blood Pressure 144/100 01/23/2015 2:47 PM CDT right arm Pulse 104 01/23/2015 2:47 PM CDT Temperature - - Respiratory Rate - - Oxygen Saturation - - Inhaled Oxygen Concentration - - Weight 94.8 kg (209 lb) 01/23/2015 2:47 PM CDT Height 170.2 cm (5' 7) 01/23/2015 2:47 PM CDT Body Mass Index 32.73 01/23/2015 2:47 PM CDT documented in this encounter Progress Notes Colton Callaway MD - 01/23/2015 3:29 PM CDT HPI and Plan: See dictation [id number] Physical Exam: Vitals: BP 144/100 mmHg Pulse 104 Ht 1.702 m (5' 7) Wt 94.802 kg (209 lb) BMI 32.73 kg/m2 Constitutional: AAO x3. Pt is in NAD. HEAD: normocephalic. SKIN: Skin normal color, texture and turgor with no lesions or eruptions. Eyes: PERRL, EOMI. ENT: Unable to evaluate JVP. No lymphadenopathy or thyroid enlargement. Chest: CTAB. Cardiac: RRR, normal S1 and S2. No murmurs rubs or gallop. Abdomen: Normal BS. Soft, non-tender and non-distended. No rebound or guarding. Extremities: Pedious pulses palpable B/L. No LE edema noticed. Neurological: Strength and sensation grossly symmetric and intact throughout. CURRENT MEDICATIONS: Current Outpatient Prescriptions Medication Sig Dispense Refill ??? cholecalciferol (VITAMIN D3) 16214 UNITS capsule Take 1 capsule (50,000 Units) by mouth once a week (Patient taking differently: Take 1 capsule by mouth once a week Has not taken for 2 weeks) 12 capsule 1 ??? DULoxetine (CYMBALTA) 30 MG capsule Take 1 capsule (30 mg) by mouth daily (Patient taking differently: Take 30 mg by mouth daily Has not started) 30 capsule 0 ALLERGIES No Known Allergies PAST MEDICAL HISTORY: Past Medical History Diagnosis Date ??? Testicular cancer 1998 ??? Palpitations PAST SURGICAL HISTORY: Past Surgical History Procedure Laterality Date ??? Orchiectomy inguinal 1998 L testicular ca, with spinal met FAMILY HISTORY: Family History Problem Relation Age of Onset ??? Obesity Mother ??? Obesity Father ??? Neurologic Disorder Maternal Uncle Multiple Sclerosis and brain aneurysm ??? Cancer Maternal Uncle lymphoma ??? C.A.D. Maternal Uncle several with heart disease ??? C.A.D. Maternal Grandfather [place] ??? Myocardial Infarction Maternal Grandfather ??? Cancer Paternal Grandfather stomach cancer SOCIAL HISTORY: History Social History ??? Marital Status: Single Spouse Name: N/A Number of Children: N/A ??? Years of Education: N/A Social History Main Topics ??? Smoking status: Never Smoker ??? Smokeless tobacco: Never Used ??? Alcohol Use: 0.0 oz/week 0 Not specified per week Comment: 2 mixed drinks, 2-3 days week ??? Drug Use: No ??? Sexual Activity: Partners: Female Other Topics Concern ??? Parent/Sibling W/ Cabg, Mi Or Angioplasty Before 65f 55m? No ??? Caffeine Concern Yes 1 cup coffee per day ??? Sleep Concern Yes SOB during the night ??? Weight Concern Yes weight gain 25# ??? Special Diet No ??? Exercise Yes walking Social History Narrative Review of Systems: Skin: Negative Eyes: Positive for ENT: Positive for nasal congestion Respiratory: Positive for dyspnea on exertion Cardiovascular: Negative Positive for;fatigue;lightheadedness;dizziness;syncope or near-syncope;exercise intolerance Gastroenterology: Positive for abdominal pain Genitourinary: Positive for urinary frequency;nocturia Musculoskeletal: Positive for back pain Neurologic: Positive for Psychiatric: Positive for anxiety Heme/Lymph/Imm: Negative Endocrine: Negative Recent Lab Results: LIPID RESULTS: Lab Results Component Value Date CHOL 167 10/26/2012 HDL 38* 10/26/2012 LDL 103 10/26/2012 TRIG 127 10/26/2012 CHOLHDLRATIO 4.4 10/26/2012 LIVER ENZYME RESULTS: Lab Results Component Value Date AST 57* 01/10/2015 ALT 52 01/10/2015 CBC RESULTS: Lab Results Component Value Date WBC 11.2* 01/10/2015 RBC 5.10 01/10/2015 HGB 16.1 01/10/2015 HCT 44.8 01/10/2015 MCV 88 01/10/2015 MCH 31.6 01/10/2015 MCHC 35.9 01/10/2015 RDW 12.8 01/10/2015 PLT 181 01/10/2015 BMP RESULTS: Lab Results Component Value Date NA 136 01/10/2015 POTASSIUM 5.2 01/10/2015 CHLORIDE 104 01/10/2015 CO2 27 01/10/2015 ANIONGAP 5 01/10/2015 GLC 96 01/10/2015 BUN 13 01/10/2015 CR 0.92 01/10/2015 GFRESTIMATED >90 Non GFR Calc 01/10/2015 GFRESTBLACK >90 GFR Calc 01/10/2015 IVIS 8.4* 01/10/2015 A1C RESULTS: No results found for: A1C INR RESULTS: Lab Results Component Value Date INR 0.95 01/10/2015 ECHOCARDIOGRAM No results found for this or any previous visit (from the past 8760 hour(s)). Orders Placed This Encounter Procedures ??? Follow-Up with Administrative Aide ??? EKG 12-lead complete w/read - Clinics (performed today) ??? Zio Patch Monitor ??? Echocardiogram No orders of the defined types were placed in this encounter. Medications Discontinued During This Encounter Medication Reason ??? propranolol (INDERAL) 10 MG tablet Stopped by Patient ??? gabapentin (NEURONTIN) 300 MG capsule Stopped by Patient ??? Cholecalciferol (VITAMIN D3 PO) Stopped by Patient ??? ranitidine (ZANTAC) 150 MG tablet Stopped by Patient Encounter Diagnoses Name Primary? Dizziness Yes ??? CARDIOVASCULAR SCREENING; LDL GOAL LESS THAN 160 ??? Palpitations CC Mic Hseter PA-C [facility] [employer] [place] [place] [address] Colton Callaway MD - 01/23/2015 3:29 PM CDT REASON FOR VISIT: Evaluation of palpitations and shortness of breath. HISTORY OF PRESENT ILLNESS: Mr. 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 The patient has a long history of neuropathy since chemotherapy and has chronic pain syndrome. He was started on gabapentin a couple of months ago. He informs that about 2 weeks ago, he started having episodes of palpitations associated with significant shortness of breath. He describes shortness of breath as dyspnea on exertion. He also affirms that sometimes he wakes up just very short of breath. He was seen by his PCP and was started on beta sammie. On 01/10, he was evaluated in the ER for chestpain. At that time, workup was negative (EKG and enzymes). TSH was also obtained which was within normal limits. At the moment, he is doing well. He decided to stop the gabapentin, as he thought it was related to causing his symptoms. However, he continues to have similar symptoms. He also discontinued beta sammie therapy. EKG done here today shows sinus tachycardia. Blood pressure is mildly elevated today (144/100). PLAN: 1. Palpitation, shortness of breath, unclear etiology at this time. I recommend an echocardiogram and Zio Patch monitor for a week to evaluate his symptoms. He should follow up with me in a month to goover results. 2. High blood pressure. The patient most likely has hypertension. He is off beta blockers now. We will resume beta blockers after Zio Patch monitor results. 3. Follow up in clinic with me in a month or earlier as needed. COLTON CALLAWAY MD MT: SARA Name: RONN HINKLE MRN: [id number] Account: [id number] : 1985 Service Date: 01/23/2015 Document: [id number] documented in this encounter Plan of Treatment Scheduled Referrals Name Type Priority Associated Diagnoses Order S chedule Follow-Up with Referral Routine Palpitations Expected: Administrative Aide 02/23/20 15 (Approximate), Expires: 01/23/2016 documented as of this encounter Procedures Procedure Name Priority Date/Time Associated Diagnosis Comme nts EKG 12-LEAD COMPLETE Routine 01/23/2015 Dizziness Results for this W/READ - CLINICS procedure a re in the results section . documented in this encounter Results Echocardiogram (02/07/2015 8:35 AM CDT) Anatomical Region Laterality Modality Echocardiography Specimen (Source) Anatomical Collection Method Collection Time Re ceived Time Location / / Volume Laterality 02/07/2015 7:13 AM CDT Narrative 02/07/2015 9:58 AM CDT Interpretation Summary [facility] Echocardiography Laboratory [address] [place] [address] Name: RONN HINKLE : 1985 Study Date: 02/07/2015 07:13 AM Age: 29 yrs Gender: Male [place] [facility] [place] For Study: Palpitations Ordering Physician: COLTON CALLAWAY Referring Physician: ARTURO NG MD Performed By: Anastasia Washburn RDCS BSA: 2.1 m2 Height: 67 in Weight: 208 lb HR: 69 BP: 130/84 mmHg Procedure Complete Echo Adult. Interpretation Summary Left ventricular systolic function is no rmal. The visual ejection fraction is estimate d at 55-60%. The left ventricle is normal in size. The right ventricle is normal in structu re, function and size. The rhythm was normal sinus. This is a normal TTE/. Left Ventricle The left ventricle is normal in size. Th ere is normal left ventricular wall thickness. Left ventricular systolic fun ction is normal. The visual ejection fraction is estimated at 55-60%. No melissa onal wall motion abnormalities noted. There is no thrombus seen in the left ve ntricle. Right Ventricle The right ventricle is normal in structu re, function and size. There is no mass or thrombus in the right ventricle. Atria Normal left atrial size. Right atrial si ze is normal. There is no atrial shunt seen. Mitral Valve The mitral valve leaflets appear normal. There is no evidence of stenosis, fluttering, or prolapse. There is no lily ral regurgitation noted. There is no mitral valve stenosis. Tricuspid Valve Normal tricuspid valve. There is trace t ricuspid regurgitation. The right ventricular systolic pressure is approxi mated at 23.1 mmHg plus the right atrial pressure. Right ventricle systoli c pressure estimate normal. There is no tricuspid stenosis. Aortic Valve The aortic valve is normal in structure and function. No aortic regurgitation is present. No aortic stenosis is presen t. Pulmonic Valve The pulmonic valve is not well seen, but is grossly normal. There is trace pulmonic valvular regurgitation. There i s no pulmonic valvular stenosis. Vessels The aortic root is normal size. Normal s ize ascending aorta. The IVC is normal in size and reactivity with respi ration, suggesting normal central venous pressure. The pulmonary artery is normal size. Pericardium The pericardium appears normal. There is no pleural effusion. Rhythm The rhythm was normal sinus. MMode/2D Measurements & Calculations IVSd: 1.1 cm LVIDd: 4.8 cm LVIDs: 3.2 cm LVPWd: 1.1 cm IVC diam: 2.2 cm FS: 33.3 % EDV(Teich): 107.7 ml ESV(Teich): 41.1 ml LV mass(C)d: 201.3 grams Ao root diam: 3.1 cm asc Aorta Diam: 2.9 cm Doppler Measurements & Calculations MV E max serafin: 79.6 cm/sec MV A max serafin: 47.6 cm/sec MV E/A: 1.7 MV dec slope: 439.0 cm/sec2 MV dec time: 0.18 sec TR max serafin: 240.3 cm/sec TR max P.1 mmHg E/E': 7.0 Peak E' Serafin: 11.4 cm/sec Report approved by: Dr. Mihai fontaine 02/07/2015 09:58 AM Procedure Note Mihai Hair MD - 02/07/2015For matting of this note might be different from the original. Interpretation Summary [facility] Echocardiography Laboratory [address] [place] [address] Name: RONN HINKLE : 1985 Study Date: 02/07/2015 07:13 AM Age: 29 yrs Gender: Male Patient [place] [facility] [place] Reason For Study: Palpitations Ordering Physician: COLTON CALLAWAY Referring Physician: ARTURO NG MD Performed By: Anastasia Washburn DAGMAR BSA: 2.1 m2 Height: 67 in Weight: 208 lb HR: 69 BP: 130/84 mmHg Procedure Complete Echo Adult. Interpretation Summary Left ventricular systolic function is no rmal. The visual ejection fraction is estimate d at 55-60%. The left ventricle is normal in size. The right ventricle is normal in structu re, function and size. The rhythm was normal sinus. This is a normal TTE/. Left Ventricle The left ventricle is normal in size. Th ere is normal left ventricular wall thickness. Left ventricular systolic fun ction is normal. The visual ejection fraction is estimated at 55-60%. No melissa onal wall motion abnormalities noted. There is no thrombus seen in the left ve ntricle. Right Ventricle The right ventricle is normal in structu re, function and size. There is no mass or thrombus in the right ventricle. Atria Normal left atrial size. Right atrial si ze is normal. There is no atrial shunt seen. Mitral Valve The mitral valve leaflets appear normal. There is no evidence of stenosis, fluttering, or prolapse. There is no lily ral regurgitation noted. There is no mitral valve stenosis. Tricuspid Valve Normal tricuspid valve. There is trace t ricuspid regurgitation. The right ventricular systolic pressure is approxi mated at 23.1 mmHg plus the right atrial pressure. Right ventricle systoli c pressure estimate normal. There is no tricuspid stenosis. Aortic Valve The aortic valve is normal in structure and function. No aortic regurgitation is present. No aortic stenosis is presen t. Pulmonic Valve The pulmonic valve is not well seen, but is grossly normal. There is trace pulmonic valvular regurgitation. There i s no pulmonic valvular stenosis. Vessels The aortic root is normal size. Normal s ize ascending aorta. The IVC is normal in size and reactivity with respi ration, suggesting normal central venous pressure. The pulmonary artery is normal size. Pericardium The pericardium appears normal. There is no pleural effusion. Rhythm The rhythm was normal sinus. MMode/2D Measurements & Calculations IVSd: 1.1 cm LVIDd: 4.8 cm LVIDs: 3.2 cm LVPWd: 1.1 cm IVC diam: 2.2 cm FS: 33.3 % EDV(Teich): 107.7 ml ESV(Teich): 41.1 ml LV mass(C)d: 201.3 grams Ao root diam: 3.1 cm asc Aorta Diam: 2.9 cm Doppler Measurements & Calculations MV E max serafin: 79.6 cm/sec MV A max serafin: 47.6 cm/sec MV E/A: 1.7 MV dec slope: 439.0 cm/sec2 MV dec time: 0.18 sec TR max serafin: 240.3 cm/sec TR max P.1 mmHg E/E': 7.0 Peak E' Serafin: 11.4 cm/sec Report approved by: Dr. Mihai fontaine 02/07/2015 09:58 AM Colton Callaway MD CV ECHO ORDERABLES Zio Patch Monitor (02/07/2015) Narrative [facility] - 02/07/2015 [facility] [address] [facility] [address] [facility] [address] 02/07/2015 Patient: ??Ronn Hinkle Chart: [id number] : ??1985 Age: ??29 year old Sex: ??male Procedure: ??ZioPatch Monitor. Sky Diver performing hook-up: ??Lauren Donohue Colton Callaway MD CV CARDIAC SERVICES ORDERABL ES Performing Organization Address City/State/ZIP Code Phon e Number [facility] EKG 12-lead complete w/read - Clinics (performed today) (01/23/2015) Narrative This result has an attachment that is no t available. Colton Callaway MD ECG ORDERABLES documented in this encounter Visit Diagnoses Diagnosis Dizziness - Primary Dizziness and giddiness CARDIOVASCULAR SCREENING; LDL GOAL LESS THAN 160 Palpitations Palpitations Palpitations documented in this encounter Care Teams Asphalt Roller Person Relationship Specialty Start Date End Date Arturo Ng MD PCP - General Family Practice 02/06/14 04/29/19 documented as of this encounter
--- OUTSIDE RECORDS SUMMARY | 2022-03-31 16:58 | XMS_ITS | Encounter Summary ---
:1985 Author Organization [place] Address [address] [place] [address] Care Team Providers Name Role Phone Carlos Chapmna MD Primary Care Provider [phone] Reason for Visit Reason Onset Date Comments Other 01/31/2015 Encounter Details Date Type Department Care Team Description 01/31/2015 Telephone [facility] Pain Bejarano, She rri Josette, DO Other Management [facility] [id number] [place] [address] [place] [address] [address] [place] [address] [place] [address] [phone] Social History Tobacco Use Types Packs/Day Years Used Date Smoking Tobacco: Never Smokeless Tobacco: Never Alcohol Use Standard Drinks/Week Comments Yes 0 (1 standard drink = 0.6 oz pure alcoho l) 2 mixed drinks, 2-3 days week Sex Assigned at Date Recorded Not on file documented as of this encounter Miscellaneous Notes Telephone Encounter - Kacie Kimball RN - 02/05/2015 12:28 PM CDT Called pt back and he states issue was addressed with Dr. Chapman this am at appt. GIULIA Matute, RN- Heel Scourer [facility] Telephone Encounter - Muriel Rao - 01/31/2015 1:15 PM CDT Patient called. He said that he has a question for Dr. Bejarano's nurse. We can call him back on his cell phone [phone] Muriel Coronado RT (R) Note: This is all of the information that was Left of the message documented in this encounter Plan of Treatment Not on filedocumented as of this encounter Visit Diagnoses Not on filedocumented in this encounter Care Teams Home Furnishings Sales Representative Relationship Specialty Start Date End Date Carlos Chapman MD PCP - General Family Practice 02/06/14 04/29/19 documented as of this encounter
--- OUTSIDE RECORDS SUMMARY | 2022-03-31 16:58 | XMS_ITS | Encounter Summary ---
:1985 Author Organization [place] Address [address] [place] [address] Care Team Providers Name Role Phone Carlos Chapman MD Primary Care Provider [phone] Reason for Visit Rehab Therapy Integrated Services - Closed Specialty Diagnoses / Procedures Referred By Contact Refer red To Contact Diagnoses Neuropathy Fatigue [facility] [address] [place], [place] [address] Phone: Fax: Referral ID Status Reason Start Date Expiration Date Visits V isits Requested Authorized FR- PT/OT Closed 12/03/2014 01/28/2015 365 365 [id number]) Encounter Details Date Type Department Care Team Description 01/11/2015 Hospital Encounter [facility] Olivia Bejarano i, DO [facility] [address] [place] [address] Rehabilitation Services Kacie Santiago, PT [address] [place], [place] [address] [place] [address] [address] Social History Tobacco Use Types [...] capsule 12 capsule 1 015 11/05/2015 D3) 48974 UNITS (50,000 Units) by capsuleIndications: mouth once [...] on filedocumented in this encounter Care Teams Formal Service Waiter Relationship Specialty Start Date End Date Carlos Chapman MD PCP - General Family Practice 02/06/14 04/29/19 documented as of this encounter
--- OUTSIDE RECORDS SUMMARY | 2022-03-31 16:58 | XMS_ITS | Encounter Summary ---
:1985 Author Organization [place] Address [address] [place] [address] Care Team Providers Name Role Phone Carlos Chapman MD Primary Care Provider [phone] Reason for Visit Reason Onset Date Comments Results 02/08/2015 echo Encounter Details Date Type Department Care Team Description 02/08/2015 Telephone [facility] Heart Jayne Dumont, Results (echo) Clinic [place] RN, RN [address] [facility] [address] [facility] [address] [place] [address] [place], [place] [address] (Wo rk) Social History Tobacco Use Types Packs/Day Years Used Date Smoking Tobacco: Never Smokeless Tobacco: Never Alcohol Use Standard Drinks/Week Comments Yes 0 (1 standard drink = 0.6 oz pure alcoho l) 2 mixed drinks, 2-3 days week Sex Assigned at Date Recorded Not on file documented as of this encounter Miscellaneous Notes Telephone Encounter - Jayne Dumont, RN, RN - 02/08/2015 3:13 PM CDT Called and informed pt of normal echo after reviewed by Dr Tovar. documented in this encounter Plan of Treatment Not on filedocumented as of this encounter Visit Diagnoses Not on filedocumented in this encounter Care Teams Business Office Manager Relationship Specialty Start Date End Date Carlos Chapman MD PCP - General Family Practice 02/06/14 04/29/19 documented as of this encounter
--- OUTSIDE RECORDS SUMMARY | 2022-03-31 16:58 | XMS_ITS | Encounter Summary ---
:1985 Author Organization [place] Address [address] [place] [address] Care Team Providers Name Role Phone Carlos Chapman MD Primary Care Provider [phone] Reason for Visit Reason Onset Date Comments Results 02/25/2015 ziopatch Encounter Details Date Type Department Care Team Description 02/25/2015 Telephone [facility] Colton Tovar sta, Results (ziopatch) Clinic [place] [address] [place] [address] [place] [id number] (Wo rk) Social History Tobacco Use Types Packs/Day Years Used Date Smoking Tobacco: Never Smokeless Tobacco: Never Alcohol Use Standard Drinks/Week Comments Yes 0 (1 standard drink = 0.6 oz pure alcoho l) 2 mixed drinks, 2-3 days week Sex Assigned at Date Recorded Not on file documented as of this encounter Miscellaneous Notes Telephone Encounter - Linnea Luna RN, RN - 02/25/2015 1:57 PM CDT Contacted pt as the results from Zio patch note was not addressed. I informed him of the normal results. He asked me to cancel his follow up with Dr Tovar and he would call us back if his symptoms reappeared or worsened. Linnea Luna RN documented in this encounter Plan of Treatment Not on filedocumented as of this encounter Visit Diagnoses Not on filedocumented in this encounter Care Teams Trash Collector Relationship Specialty Start Date End Date Carlos Chapman MD PCP - General Family Practice 02/06/14 04/29/19 documented as of this encounter
--- OUTSIDE RECORDS SUMMARY | 2022-03-31 16:58 | XMS_ITS | Encounter Summary ---
:1985 Author Organization [place] Address [address] [place] [address] Care Team Providers Name Role Phone Arturo Ng MD Primary Care Provider [phone] Reason for Visit (Routine) - Closed Specialty Diagnoses / Procedures Referred By Contact Refer red To Contact Cardiology Diagnoses per Guy, Palpitations *ziopatch at 10* *r/s from 01/25 missed appt per pt request 01/25 arc* Rh Echo Rscc Procedures ECH COMPLETE [address] [facility] [address] [place], [place] [address] Phone: Fax: Referral ID Status Reason Start Date Expiration Date Visits Requ ested Visits Authorized [id number] Closed 01/25/2015 01/25/2016 1 1 Encounter Details Date Type Department Care Team Description 02/07/2015 Hospital Encounter [facility] Colton Callaway [facility] Maria M Montes MD Care [address] [address] [facility] [address] [place] [address] [place], [place] [phone] (Wo rk) [address] [phone] Social History Tobacco Use Types Packs/Day Years [...] capsule 12 capsule 1 01/02/201511/04 (VITAMIN D3) 86768 (50,000 Units) by UNITS mouth once a week capsuleIndications: Vitamin D deficiency DULoxetine (CYMBALTA) Take 1 capsule 30 capsule 0 01/01/2015 03/19/2015 30 MG (30 mg) by mouth capsuleIndications: daily Polymyalgia (H), Muscle stiffness fluticasone (FLONASE) [place] 1-2 sprays 16 g 1 02/06/20 15 06/18/2015 50 MCG/ACT nasal into both sprayIndications: nostrils daily Chronic rhinitis documented as of this encounter Plan of Treatment Not on filedocumented as of this encounter Procedures Procedure Name Priority Date/Time Associated Diagnosis Comme nts ECHO COMPLETE Routine 02/07/2015 8:35 AM Palpitations Results for this CDT procedure are i n the results section . documented in this encounter Results Echocardiogram (02/07/2015 8:35 AM CDT) Anatomical Region Laterality Modality Echocardiography Specimen (Source) Anatomical Collection Method Collection Time Re ceived Time Location / / Volume Laterality 02/07/2015 7:13 AM CDT Narrative 02/07/2015 9:58 AM CDT Interpretation Summary [facility] [address] [place] [address] Name: RONN HINKLE : 1985 Study Date: 02/07/2015 07:13 AM Age: 29 yrs Gender: Male Patient Location: [facility] Reason For Study: Palpitations Ordering Physician: COLTON [...] be different from the original. Interpretation Summary [facility] [address] [place] [address] Name: RONN HINKLE : 1985 Study Date: 02/07/2015 07:13 AM Age: 29 yrs Gender: Male Patient Location: [facility] Reason For Study: Palpitations Ordering Physician: COLTON [...] AM Colton Callaway MD CV ECHO ORDERABLES documented in this encounter Visit Diagnoses Diagnosis Palpitations documented in this encounter Care Teams Supervisor Painting Department Relationship Specialty Start Date End Date Arturo Ng MD PCP - General Family Practice 02/06/14 04/29/19 documented as of this encounter
--- OUTSIDE RECORDS SUMMARY | 2022-03-31 16:58 | XMS_ITS | Encounter Summary ---
:1985 Author Organization [place] Address [address] [facility] [place] [address] Care Team Providers Name Role Phone Carlos Chapman MD Primary Care Provider [phone] Reason for Visit Rehab Therapy Integrated Services - Closed Specialty Diagnoses / Procedures Referred By Contact Refer red To Contact Diagnoses Neuropathy Fatigue [facility] [address] [place], [place] [address] Phone: Fax: Referral ID Status Reason Start Date Expiration Date Visits V isits Requested Authorized [facility]- PT/OT Closed 12/03/2014 01/28/2015 365 365 ([id number]) Encounter Details Date Type Department Care Team Description 01/24/2015 Hospital Encounter [facility] Olivia Bejraano i, DO [facility] [address] [place], [place] [address] Rehabilitation Services Francheska Singh, OT [facility] [address] [place] [address] [facility] [address] [place] [address] Social History Tobacco Use Types [...] Sig Dispensed Refills Start Date End Date cholecalciferol (VITAMIN Take 1 capsule 12 capsule 1 015 11/05/2015 D3) 73074 UNITS (50,000 Units) by capsuleIndications: mouth once a week Vitamin D deficiency DULoxetine (CYMBALTA) 30 Take 1 capsule (30 30 capsule 0 08/201403/19/2015 MG capsuleIndications: mg) by mouth daily Polymyalgia (H), Muscle stiffness documented as of this encounter Plan of Treatment Not on filedocumented as of this encounter Visit Diagnoses Not on filedocumented in this encounter Care Teams Conductor Pullman Relationship Specialty Start Date End Date Carlos Chapman MD PCP - General Family Practice 02/06/14 04/29/19 documented as of this encounter
--- OUTSIDE RECORDS SUMMARY | 2022-03-31 16:58 | XMS_ITS | Encounter Summary ---
:1985 Author Organization [place] Address [address] [place] [address] Care Team Providers Name Role Phone Carlos Chapman MD Primary Care Provider [phone] Reason for Visit Reason Comments Sinus Problem Encounter Details Date Type Department Care Team Description 02/05/2015 Office Visit [facility] Carlos Chapman ia (H) (Primary Dx); Clinic Anjel Spring MD Cisplatin induced neuropathy (H); [place] [address] Chronic rhinitis; Road, [address] [place], [place] CARDIOVASCULAR SCREENING; LD L GOAL LESS THAN 160 [place], [place] [id number] Social History Tobacco Use Types Packs/Day Years Used Date Smoking Tobacco: Never Smokeless Tobacco: Never Alcohol Use Standard Drinks/Week Comments Yes 0 (1 standard drink = 0.6 oz pure alcoho l) 2 mixed drinks, 2-3 days week Sex Assigned at Date Recorded Not on file documented as of this encounter Last Filed Vital Signs Vital Sign Reading Time Taken Comments Blood Pressure 138/100 02/05/2015 7:59 AM CDT Pulse 86 02/05/2015 7:59 AM CDT Temperature 36.6 ??C (97.8 ??F) 02/05/2015 7:59 AM CDT Respiratory Rate - - Oxygen Saturation 98% 02/05/2015 7:59 AM CDT Inhaled Oxygen Concentration - - Weight 94.7 kg (208 lb 12.8 oz) 02/05/2015 7:59 AM CDT Height - - Body Mass Index 32.7 01/23/2015 2:47 PM CDT documented in this encounter Progress Notes Carlos Chapman MD - 02/05/2015 7:49 AM CDT HPI SUBJECTIVE: Ronn Hinkle is a 29 year old male who presents to clinic today for the following health issues: RESPIRATORY SYMPTOMS ?? Duration: 4 months ?? Description nasal congestion, headache ?? Severity: moderate ?? Accompanying signs and symptoms: eyes water, pressure on his eyes ?? History (predisposing factors): none ?? Precipitating or alleviating factors: None ?? 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 Recently started cannibis, seems helpful. Using daily, seems to be helpful. Currently able to work about one hour before taking a two hour break. Is working with PT, chronic pain on improving endurance. Has chronic difficulty with congestion. Chronic nasal congestion - difficult to breath, occasional frontal POPE. No meds or interventions tried. Will sometimes use peppermint oil, helpful for congestion and POPE. Has tried OTC Afrin, didn't like effects. Review of Systems Constitutional: Negative. HENT: Positive for congestion. Respiratory: Negative. Cardiovascular: Negative. Musculoskeletal: Positive for myalgias. Neurological: Positive for headaches. Physical Exam Constitutional: He is oriented to person, place, and time and well-developed, well-nourished, and inno distress. No distress. HENT: Right Ear: Tympanic membrane, external ear and ear canal normal. Left Ear: Tympanic membrane, external ear and ear canal normal. Mouth/Throat: Oropharynx is clear and moist. No oropharyngeal exudate. Eyes: Conjunctivae and EOM are normal. Neck: Neck supple. Cardiovascular: Normal rate, regular rhythm and normal heart sounds. Pulmonary/Chest: Effort normal and breath sounds normal. Musculoskeletal: He exhibits no edema. Lymphadenopathy: He has no cervical adenopathy. Neurological: He is alert and oriented to person, place, and time. Skin: Skin is warm and dry. No rash noted. Nursing note and vitals reviewed. (845) Polymyalgia (primary encounter diagnosis) Comment: historical Plan: medical cannabis oral liquid (Patient's own supply. 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 Not a prescription) (472.0) Chronic rhinitis Comment: Plan: fluticasone (FLONASE) 50 MCG/ACT nasal spray (V81.2) CARDIOVASCULAR SCREENING; LDL GOAL LESS THAN 160 Comment: Plan: Lipid panel reflex to direct LDL RTC in Carlos Chapman MD documented in this encounter Nursing Notes Geena Hoyos - 02/05/2015 8:01 AM CDT Chief Complaint Patient presents with ??? Sinus Problem Initial BP 138/100 mmHg Pulse 86 Temp(Src) 97.8 ??F (36.6 ??C) (Oral) Wt 208 lb 12.8 oz (94.711 kg) SpO2 98% Estimated body mass index is 32.69 kg/(m^2) as calculated from the following: Height as of 15: 5' 7 (1.702 m). Weight as of this encounter: 208 lb 12.8 oz (94.711 kg). BP completed using cuff size: large Geena Hoyos MA documented in this encounter Plan of Treatment Not on filedocumented as of this encounter Procedures Procedure Name Priority Date/Time Associated Diagnosis Comme nts LIPID REFLEX TO Routine 02/05/2015 8:32 AM CARDIOVASCULAR Resu lts for this DIRECT LDL PANEL CDT SCREENING; LDL GOAL proc edure are in LESS THAN 160 the results section. documented in this encounter Results (ABNORMAL) Lipid panel reflex to direct LDL (02/05/2015 8:32 AM CDT) P athologist Signature Cholesterol 235 (H) <200 mg/dL [facility] Comment: LDL Cholesterol is the primary guide to therapy. The NCEP recommends further evaluation of: patients with cholesterol greater than 200 mg/dL if additional risk facto rs are present, cholesterol greater than 240 mg/dL, triglycerides greater than 1 50 mg/dL, or HDL less than 40 mg/dL. Triglycerides 173 (H) 0 - 150 mg/dL [facility] HDL Cholesterol 45 >40 mg/dL [facility] LDL Cholesterol Calculated 155 (H) 0 - 129 mg/dL [facility] Comment: LDL Cholesterol is the primary guide to therapy: LDL-cholesterol goal in high risk patients is <100 mg/dL and in very high risk patients is <70 mg/dL. VLDL-Cholesterol 35 (H) 0 - 30 mg/dL [facility] Cholesterol/HDL Ratio 5.2 (H) 0.0 - 5.0 [facility] Specimen Anatomical Collection Method Collection Time Receive d Time (Source) Location / / Volume Laterality Blood specimen 02/05/2015 8:32 AM 015 8:33 (specimen) CDT AM CDT Carlos Chapman MD LAB - BLOOD ORDERABLES Performing Organization Address City/State/ZIP Code Phon e Number [facility] [address] [place] [address] documented in this encounter Visit Diagnoses Diagnosis Polymyalgia (H) - Primary Polymyalgia rheumatica 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
--- OUTSIDE RECORDS SUMMARY | 2022-03-31 16:58 | XMS_ITS | Encounter Summary ---
:1985 Author Organization [place] Address [address] [place] [address] Care Team Providers Name Role Phone Carlos Chapman MD Primary Care Provider [phone] Reason for Visit Rehab Therapy Integrated Services (Routine) - Closed Specialty Diagnoses / Procedures Referred By Contact Refer red To Contact Diagnoses Cancer Rehab PT//Fatigue Neuropathy, -Would prefer on days with other appts [facility] Procedures TREATMENT [address] [facility] [address] [place], [place] [address] Phone: Fax: Referral ID Status Reason Start Date Expiration Date Visits V isits Requested Authorized [facility]-PT/OT/FEED PROJECT ENGINEER Closed 01/29/2015 05/30/2015 365 365 ([id number]) Encounter Details Date Type Department Care Team Description 02/28/2015 Hospital Encounter [facility] Olivia Bejarano i, DO [facility] [address] [place], [place] [address] Rehabilitation Services Kacie Santiago, PT [address] [place] [address] [address] Social History Tobacco Use Types [...] capsule 12 capsule 1 01/02/201511/04 (VITAMIN D3) 90334 (50,000 Units) by UNITS mouth once a week capsuleIndications: Vitamin D deficiency DULoxetine (CYMBALTA) Take 1 capsule 30 capsule 0 01/01/2015 03/19/2015 30 MG (30 mg) by mouth capsuleIndications: daily Polymyalgia (H), Muscle stiffness fluticasone (FLONASE) [place] 1-2 sprays 16 g 1 02/06/20 15 06/18/2015 50 MCG/ACT nasal into both sprayIndications: nostrils daily Chronic rhinitis documented as of this encounter Plan of Treatment Not on filedocumented as of this encounter Visit Diagnoses Not on filedocumented in this encounter Care Teams City Library Director Relationship Specialty Start Date End Date Carlos Chapman MD PCP - General Family Practice 02/06/14 04/29/19 documented as of this encounter
--- OUTSIDE RECORDS SUMMARY | 2022-03-31 16:58 | XMS_ITS | Encounter Summary ---
:1985 Author Organization [place] Address [address] [place] [address] Care Team Providers Name Role Phone Carlos Chapman MD Primary Care Provider [phone] Reason for Visit Rehab Therapy Integrated Services - Closed Specialty Diagnoses / Procedures Referred By Contact Refer red To Contact Diagnoses Neuropathy Fatigue [facility] [address] [place], [place] [address] Phone: Fax: Referral ID Status Reason Start Date Expiration Date Visits V isits Requested Authorized [facility]- PT/OT Closed 12/03/2014 01/28/2015 365 365 ([id number]) Encounter Details Date Type Department Care Team Description 01/28/2015 Hospital Encounter [facility] Olivia Bejarano i, DO [facility] [address] [place] [address] Rehabilitation Services Kacie Santiago, PT [address] [place], [place] [address] [place] [address] [address] Social History Tobacco Use Types [...] capsule 12 capsule 1 015 11/05/2015 D3) 46910 UNITS (50,000 Units) by capsuleIndications: mouth once a week Vitamin D deficiency DULoxetine (CYMBALTA) 30 Take 1 capsule (30 30 capsule 0 08/201403/19/2015 MG capsuleIndications: mg) by mouth daily Polymyalgia (H), Muscle stiffness documented as of this encounter Plan of Treatment Not on filedocumented as of this encounter Visit Diagnoses Not on filedocumented in this encounter Care Teams Beadworker Relationship Specialty Start Date End Date Carlos Chapman MD PCP - General Family Practice 02/06/14 04/29/19 documented as of this encounter
--- OUTSIDE RECORDS SUMMARY | 2022-03-31 16:58 | XMS_ITS | Encounter Summary ---
:1985 Author Organization [place] Address [address] [place] [address] Care Team Providers Name Role Phone Carlos Chapman MD Primary Care Provider [phone] Reason for Visit Rehab Therapy Integrated Services (Routine) - Closed Specialty Diagnoses / Procedures Referred By Contact Refer red To Contact Diagnoses Cancer Rehab PT//Fatigue Neuropathy, -Would prefer on days with other appts [facility] TREATMENT [address] [facility] [address] [place], [place] [address] Phone: Fax: Referral ID Status Reason Start Date Expiration Date Visits V isits Requested Authorized [facility]-PT/OT/TEST CENTER ADMINISTRATOR Closed 01/29/2015 05/30/2015 365 365 ([id number]) Encounter Details Date Type Department Care Team Description 02/14/2015 Hospital Encounter [facility] Olivia Bejarano i, DO [facility] [address] [facility] [address] [place], [place] [address] Rehabilitation Services Francheska Singh, OT [facility] [address] [place] [address] [facility] [address] [place] [address] Social History Tobacco Use Types [...] capsule 12 capsule 1 01/02/201511/04 (VITAMIN D3) 35783 (50,000 Units) by UNITS mouth once a week capsuleIndications: Vitamin D deficiency DULoxetine (CYMBALTA) Take 1 capsule 30 capsule 0 01/01/2015 03/19/2015 30 MG (30 mg) by mouth capsuleIndications: daily Polymyalgia (H), Muscle stiffness fluticasone (FLONASE) [place] 1-2 sprays 16 g 1 02/06/20 15 06/18/2015 50 MCG/ACT nasal into both sprayIndications: nostrils daily Chronic rhinitis documented as of this encounter Progress Notes Francheska Singh, OT - 02/14/2015 3:32 PM CDT Outpatient Occupational Therapy Discharge Note Patient: Ronn Hinkle : 1985 Insurance: Payor/Plan Subscriber Name Rel Member # Group # BLUE PLUS - BLUE PLUS* RONN HINKLE [id number] [address] [id number] Beginning/End Dates of Reporting Period: 12/31/14 to 02/14/2015 Referring Provider: Bettina Zhu D.O. Therapy Diagnosis: h/o cancer, fatigue, decreased tolerance for ADLs Client Self Report: Patient reports he had a very good week so far. 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 He got on the sales order clerk yesterday and did 4 rounds and then arms and legs started going numb, so he stopped. Hasn't done the putty HEP since he hadto crew leader gluing the paint brush so much. Objective Measurements: Objective Measure: Wood Barker Details: R hand: 25# (was 15# at eval); L: 35# (17#) - both with pain of 1 (same as before) Objective Measure: Pinch Details: Lateral: R: 16# (was 12#); L: 13# (was 9#); Palmar pinch: R: 8# (was 6#), L: 7# (was 6#) -pain with all 1 - same as before Outcome Measures (most recent score): FACIT Fatigue Subscale (score out of 52). The higher the score, the better the QOL.: 11 (was 6 on 12/31/14) Goals: Goal Identifier memory Goal Description Patient will demonstrate improved memory skills by completing short-term memory tasks in occupational therapy with 85-90% accuracy using compensatory strategies for increased safety and independence with ADL/IADLS (remembering to take medications, turn off the stove when done, etc.). Target Date 02/25/15 Date Met Progress: Patient educated during 2 different sessions for memory compensation. Did not formally assess memory at discharge, however, patient had increased his use of memory strategies. He did continueto forget his therapy folder at times, etc. and would benefit from continued consistent use of strategies. Goal Identifier visual adaptations Goal Description Patient will verbalize 2-3 strategies to compensate for visual sensitivity for increased independence during ADL/IADLs (computer adaptations, work tasks, etc.). Target Date 02/25/15 Date Met 02/14/15 Progress: Goal met. Goal Identifier EC/WS Goal Description Patient to verbalize 3 strategies for energy conservation/work simplification and fatigue management for improved independence with ADL/IADLs at home and in the community, and increaseFACIT - Fatigue score by 4 points for increased activity level. Target Date 02/25/15 Date Met 02/14/15 Progress: Goal met. Goal Identifier hand strengthening HEP Goal Description Patient to demonstrate improved B crew leader gluing strength to 5# and B pinch strength by 2# for increased ADL/IADL independence (hanging onto objects for hygienes, home and work tasks, etc.). Target Date 02/25/15 Date Met Progress: Goal nearly met: all met except for L palmar pinch - improved by 1#) Goal Identifier adaptive aids/techniques for ADL/IADL Goal Description Patient to verbalize understanding of and demonstrate use of 2- 3 new pieces of adaptive equipment and/or adapted techniques to increase his independence and safety with ADL/IADLs (handwriting, feeding self, dressing, etc.) while dealing with hand pain and weakness. Target Date 02/25/15 Date Met 02/14/15 Progress: Goal met. Progress Toward Goals/Assessment and Recommendations: Patient has been seen in occupational therapy for a total of 7 visits since initial evaluation on 12/31/14. This patient was seen in occupational therapy secondary to the following functional impairments impacting ADL/IADL independence: decreased hand function, pain, fatigue, decreased cognition, decreased visual perceptual skills. Treatment included ADL/IADL retraining, cognitive retraining, strengthening, visual perceptual skills training and education in a home exercise program. Patient is being discharged from occupational therapy because all goals met and/or addressed and patient nearly independent with his HEP's and adaptations. At the conclusion of therapy, patient is now more independent with basic ADLs and able to complete more tasks when using EC principles. He demonstrated fairly significant progress in B crew leader gluing strength and improvement in pinch strength and FACIT score - see above. Patient has potential to continue to improve if he continues with UE HEP, uses learnedprinciples for EC and ADL adaptations. Plan: Discontinue formal outpatient occupational therapy services at this time. Patient to continue with home program as instructed. Patient in agreement with the plan. Discharge: Yes documented in this encounter Plan of Treatment Not on filedocumented as of this encounter Visit Diagnoses Not on filedocumented in this encounter Care Teams Slasher Tender Helper Relationship Specialty Start Date End Date Carlos Chapman MD PCP - General Family Practice 02/06/14 04/29/19 documented as of this encounter
--- OUTSIDE RECORDS SUMMARY | 2022-03-31 16:58 | XMS_ITS | Encounter Summary ---
:1985 Author Organization [place] Address [address] [place] [address] Care Team Providers Name Role Phone Carlos Chapman MD Primary Care Provider [phone] Reason for Visit Rehab Therapy Integrated Services - Closed Specialty Diagnoses / Procedures Referred By Contact Refer red To Contact Diagnoses Neuropathy Fatigue [facility] [address] [place], [place] [address] Phone: Fax: Referral ID Status Reason Start Date Expiration Date Visits V isits Requested Authorized [facility]- PT/OT Closed 12/03/2014 01/28/2015 365 365 ([id number]) Encounter Details Date Type Department Care Team Description 01/28/2015 Hospital Encounter [facility] Olivia Bejarano i, DO [facility] [address] [place], [place] [address] Rehabilitation Services Francheska Singh, OT [facility] [address] [place] [address] [facility] [address] [place] [address] Social History Tobacco Use Types [...] capsule 12 capsule 1 015 11/05/2015 D3) 64951 UNITS (50,000 Units) by capsuleIndications: mouth once a week Vitamin D deficiency DULoxetine (CYMBALTA) 30 Take 1 capsule (30 30 capsule 0 08/201403/19/2015 MG capsuleIndications: mg) by mouth daily Polymyalgia (H), Muscle stiffness documented as of this encounter Plan of Treatment Not on filedocumented as of this encounter Visit Diagnoses Not on filedocumented in this encounter Care Teams Application Penetration Tester Relationship Specialty Start Date End Date Carlos Chapman MD PCP - General Family Practice 02/06/14 04/29/19 documented as of this encounter
--- OUTSIDE RECORDS SUMMARY | 2022-03-31 16:59 | XMS_ITS | Encounter Summary ---
:1985 Author Organization [facility] Address Formerly [facility], [facility] [place] [address] Care Team Providers Name Role Phone Carlos Chapman MD Primary Care Provider [phone] Reason for Visit Reason Onset Date Comments Referral 12/03/2014 Paperwork appt per Jenelle Bejarano Encounter Details Date Type Department Care Team Description 12/03/2014 Telephone [facility] Pain Bettina Bejarano, Referral (Paperwork Management [facility] e DO appt per Dr Bejarano) [address] [facility] [address] [place] [address] [address] [phone] [place] [address] Social History Tobacco Use Types Packs/Day Years Used Date Smoking Tobacco: Never Smokeless Tobacco: Never Alcohol Use Standard Drinks/Week Comments Yes 0 (1 standard drink = 0.6 oz pure alcoho l) occ Sex Assigned at Date Recorded Not on file documented as of this encounter Miscellaneous Notes Telephone Encounter - Kacie Kimball RN - 12/03/2014 2:52 PM CDT Called pt and scheduled him for December [address] Bejarano to go over the paperwork. Kacie Kimball, SONNYN, RN-BC Dial Printer [facility] Telephone Encounter - Kacie Kimball RN - 12/03/2014 1:10 PM CDT Pt called and left VM that he missed appt from nurse line regarding some paperwork. GIULIA Matute, RN- Dial Printer [facility] Telephone Encounter - Kacy Garcia - 12/03/2014 12:43 PM CDT Contacted pt to schedule appt. Telephone Encounter - Bettina Bejarano DO - 12/03/2014 12:05 PM CDT I received paper work for Application for Sickness Benefits. If the patient wants me to consider filling out this paper work, I would like to schedule a paper work appointment with the patient. Please call patient to schedule. Bettina Bejarano DO [facility] documented in this encounter Plan of Treatment Not on filedocumented as of this encounter Visit Diagnoses Not on filedocumented in this encounter Care Teams Data Management Manager Relationship Specialty Start Date End Date Carlos Chapman MD PCP - General Family Practice 02/06/14 04/29/19 documented as of this encounter
--- OUTSIDE RECORDS SUMMARY | 2022-03-31 16:59 | XMS_ITS | Encounter Summary ---
:1985 Author Organization [facility] Address [address] [place] [address]. [place] [address] Care Team Providers Name Role Phone Carlos Chapman MD Primary Care Provider [phone] Reason for Visit Reason Onset Date Comments Referral 11/22/2014 Encounter Details Date Type Department Care Team Description 11/22/2014 Telephone [facility] Pain Pain Management Beck anderson, Referral Management [facility] [address] [place] [address] Social History Tobacco Use Types Packs/Day Years Used Date Smoking Tobacco: Never Smokeless Tobacco: Never Alcohol Use Standard Drinks/Week Comments Yes 0 (1 standard drink = 0.6 oz pure alcoho l) occ Sex Assigned at Date Recorded Not on file documented as of this encounter Miscellaneous Notes Telephone Encounter - Keena Maria - 11/23/2014 2:42 PM CDT Images from the original note were not included. [facility] Center Referral 1. Confirmed address with patient? Yes 2. Confirmed phone number with patient? Yes 3. Confirmed referring provider? Yes 4. Is the PCP the same as the referring provider? No: PCP Dr. Chapman 5. Has the patient been to any previous pain clinics? No (If yes, send RAJINDER with welcome letter) 6. Which insurance are we to bill for this appointment? Pending - informed about $75 down payment 7. Informed pt of cancellation (48 hour) policy? Yes REGARDING OPIOID MEDICATIONS: We will always address appropriateness of opioid pain medications, butwe generally will not automatically take on a prescribing role. When we do take on prescribing of opioids for chronic pain, it is in collaboration with the referring physician for an intermediate period of time (months), with an expectation that the primary physician or provider will assume the prescribing role if medications are effective at stable doses with demonstrated compliance. Therefore, please do not assume that your prescribing responsibilities end on the day of pain clinic consultation. 7. Informed pt of prescribing policy? Yes 8. Referring Provider: Mic Hester PA-C 9. Criteria for Triage Eval: -Missed/Failed 1st DUAL appointment? N/A -Medication Focused? N/A -Mental Health Concerns? (e.g. Recent psych hospitalization/snap shot)? N/A -Active substance abuse? N/A -Patient behaviors (e.g. Offensive language/raised voice)? N/A Telephone Encounter - Candy Mitchell - 11/22/2014 10:18 AM CDT LVM for patient to call back and schedule a new eval. Candy Mitchell Twine Reeling Machine Operator [facility] documented in this encounter Plan of Treatment Not on filedocumented as of this encounter Visit Diagnoses Not on filedocumented in this encounter Care Teams Retail Salesman Relationship Specialty Start Date End Date Carlos Chapman MD PCP - General Family Practice 02/06/14 04/29/19 documented as of this encounter
--- OUTSIDE RECORDS SUMMARY | 2022-03-31 16:59 | XMS_ITS | Encounter Summary ---
:1985 Author Organization [facility] Address [address] [place] [id number] Care Team Providers Name Role Phone Carlos Chapman MD Primary Care Provider [phone] Reason for Visit Reason Comments RECHECK F/U from previous visit due to chronic body pain Encounter Details Date Type Department Care Team Description 12/28/2014 Office Visit [facility] Bettina Bejarano, Aaron myalgia (Primary Dx); Pain Management DO Myofascial pain; [facility] PAIN Peripheral neuropathy [address] [facility] [address] [place] [address] [place] [address] [phone] Social History Tobacco Use Types Packs/Day Years Used Date Smoking Tobacco: Never Smokeless Tobacco: Never Alcohol Use Standard Drinks/Week Comments Yes 0 (1 standard drink = 0.6 oz pure alcoho l) occ Sex Assigned at Date Recorded Not on file documented as of this encounter Last Filed Vital Signs Vital Sign Reading Time Taken Comments Blood Pressure 145/100 12/28/2014 10:44 AM CDT Pulse 66 12/28/2014 10:44 AM CDT Temperature - - Respiratory Rate - - Oxygen Saturation 97% 12/28/2014 10:44 AM CDT Inhaled Oxygen Concentration - - Weight 92.5 kg (204 lb) 12/28/2014 10:44 AM CDT Height - - Body Mass Index 31.95 11/16/2014 9:50 PM CDT documented in this encounter Patient Instructions Patient InstructionsBettina Bejarano DO - 12/28/2014 11:13 AM CDT 1. Physical Therapy: Continue with rehab services 2. Pain Medication Management: 1. Continue gabapentin 600-600-300 mg. 2. Consider medical marijuana. 3. Consider trial of cymbalta 30 mg daily, ok to take 60 mg if tolerating it after 1 week. 3. Referrals: acupuncture and adaptive yoga have been discussed 4. Recommendations to primary care provider: consider checking thyroid function and evaluate blood pressure. He has had a few high blood pressure readings. Also, follow up regarding low vitamin D. It was last checked on 02/14/14 and was low at 23 then. 5. Follow up: with Dr. Bejarano and the pain clinic as needed. [facility] fax #: [phone] Nurse triage line: [phone] Call this number with any questions or concerns. You can leave a message anytime. Please leave a detailed message. Calls are returned between 8 AM and 4 PM Wednesday through and from 8 AM to 12 Noon on Fridays. We usually get back to you within 24 to 48 hours depending on the issue/request. Scheduling number: [phone]. Call this number to schedule or change appointments. Also call thisnumber with any insurance questions. Medication refills: ?? For medications, call your pharmacy directly to request a refill and the pharmacy will call the [facility] for authorization. Please allow 3- 4 days for these refills. We believe regular attendance is lui to your success in our program. Any time you are unable to keep your appointment we ask that you call us at least 24 hours in advance to let us know. This will allow us to offer the appointment time to another patient. The following is our policy for missed appointments: ??? You will receive a letter after missing your 1st and 2nd appointments without contacting the clinic before your scheduled appointment time. ??? After missing 3 appointments without calling first, we will cancel all of your future appointments at [facility]. ??? At that point, you will not be able to resume services unless approved by your care team documented in this encounter Progress Notes Bettina Bejarano DO - 12/28/2014 10:43 AM CDT Images from the original note were not included. [facility] Date of visit: 12/28/2014 Chief complaint: No chief complaint on file. Ronn Hinkle is a 29 year old male who presents with the complaints of widespread pain and peripheral neuropathy. Exam shows intact strength, decreased sensation below the knees, diffuse tenderness. Interval history: Ronn Hinkle is a 29 year old male last seen by me on 12/05/14. Recommendations/plan at the last visit included: 1. Physical Therapy: Scheduled for today with Kacie Santiago 2. Medication Management: LEATHER HEEL BREASTER reviewed and is appropriate. 1. Continue baclofen taper. 2. Continue gabapentin titration. 3. Consider medical marijuana. 3. Referrals: acupuncture and adaptive yoga at [facility] 4. Follow up: with Dr. Bejarano -scheduled on 12/28/14. Since his last visit, Ronn Hinkle reports: PT rosa on 12/06/14 recommended ongoing therapy. Feels like he is getting more mobile with physical therapy. Continues to have a lot of pain and tenderness. Uses a type of foam roller. Has had a few elevated blood pressure readings. Taking gabapentin and has not noticed grogginess with increasing the dose. Tapered off baclofen and does not feel as tired. Has not tried adaptive yoga yet. Also looking into a yoga program as recommended by PT. Pain scores: Pain intensity on average is 8 on a scale of 0-10. 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 gabapentin (NEURONTIN) 300 MG capsule Increase dose to 300 mg-300 mg-600 mg for 1 wk, then increase to 600 mg-300 mg-600 mg for 1 wk then increase to 600 mg Three times daily 360 capsule 0 ??? baclofen (LIORESAL) 10 MG tablet Take 1.5 tablets (15 mg) by mouth 3 times daily 135 tablet 5 ??? Cholecalciferol (VITAMIN D3 PO) Take by mouth daily Medical History: any changes in medical history [...] at age of 13. 2. Peripheral neuropathy 3. Polymyalgia 4. Headaches 5. Testicular cancer diagnosed at age 13, in remission. Follow up with oncologist on 04/05/15. 6. Impaired functioning. Disability work completed on 12/05/14. 7. History of low back pain. CT shows mild lumbar facet arthropathy. Plan: 1. Physical Therapy: Continue with rehab services 2. Medication Management: LEATHER HEEL BREASTER reviewed and is appropriate. 1. Continue gabapentin 600-600-300 mg. 2. Consider medical marijuana. 3. Consider trial of cymbalta 30 mg daily. 3. Referrals: acupuncture and adaptive yoga at [facility] 4. Recommendations to primary care provider: consider checking thyroid function and evaluate blood pressure. He has had a few high blood pressure readings. Also, follow up regarding low vitamin D. It was last checked on 02/14/14 and was low at 23 then. 5. Follow up: with Dr. Bejarano and the pain clinic as needed. Total time spent was 30 minutes, and more than 50% of face to face time was spent in counseling and/or coordination of care regarding the above assessment and plan and paperwork for disability. Bettina Bejarano DO [facility] documented in this encounter Nursing Notes Jenny Maharaj CMA - 12/28/2014 10:46 AM CDT Chief Complaint Patient presents with ??? RECHECK F/U from previous visit due to chronic body pain Initial BP 145/100 mmHg Pulse 66 Wt 92.534 kg (204 lb) SpO2 97% Estimated body mass index is 31.94 kg/(m^2) as calculated from the following: Height as of 11/16/14: 1.702 m (5' 7). Weight as of this encounter: 92.534 kg (204 lb). BP completed using cuff size: large Jenny Maharaj CMA (AAMA) documented in this encounter Plan of Treatment Not on filedocumented as of this encounter Visit Diagnoses Diagnosis Fibromyalgia - Primary Mylagia and myositis, unspecified Myofascial pain Mylagia and myositis, unspecified Peripheral neuropathy Unspecified hereditary and idiopathic pe ripheral neuropathy documented in this encounter Care Teams Grounds Supervisor Relationship Specialty Start Date End Date Carlos Chapman MD PCP - General Family Practice 02/06/14 04/29/19 documented as of this encounter
--- OUTSIDE RECORDS SUMMARY | 2022-03-31 16:59 | XMS_ITS | Encounter Summary ---
:1985 Author Organization [facility] Address Count includes the [facility] [place] [address] Care Team Providers Name Role Phone Carlos Chapman MD Primary Care Provider [phone] Reason for Visit Reason Comments Chest Pain Encounter Details Date Type Department Care Team Description 01/10/2015 Emergency [facility] Mihai Meier chest pain; [facility] Emergency Dep t MD Chance Neuropathy; [facility] Nausea with vomiting; [place], [place] Esophageal reflux [id number] [phone] [place], [place] [address] (Wo rk) Social History Tobacco Use Types Packs/Day Years Used Date Smoking Tobacco: Never Smokeless Tobacco: Never Alcohol Use Standard Drinks/Week Comments Yes 0 (1 standard drink = 0.6 oz pure alcoho l) occ Sex Assigned at Date Recorded Not on file documented as of this encounter Last Filed Vital Signs Vital Sign Reading Time Taken Comments Blood Pressure 134/90 01/10/2015 5:12 AM CDT Pulse 67 01/10/2015 5:12 AM CDT Temperature 36.8 ??C (98.2 ??F) 01/10/2015 3:05 AM CDT Respiratory Rate 18 01/10/2015 5:12 AM CDT Oxygen Saturation 95% 01/10/2015 5:12 AM CDT Inhaled Oxygen Concentration - - Weight 81.6 kg (180 lb) 01/10/2015 3:05 AM CDT Height - - Body Mass Index 28.19 11/16/2014 9:50 PM CDT documented in this encounter Discharge Instructions Discharge InstructionsMihai Meier MD - 01/10/2015 4:54 AM CDT Discharge Instructions Chest Pain You have been seen today for chest pain or discomfort. At this time, your doctor has found no signs that your chest pain is due to a serious or life-threatening condition, (or you have declined more testing and/or admission to the hospital). However, sometimes there is a serious problem that does not show up right away. Your evaluation today may not be complete and you may need further testing and evaluation. You need to follow-up with your regular doctor within 3 days. Return to the Emergency Department if: ??? Your chest pain changes, gets worse, starts to happen more often, or comes with less activity. ??? You are short of breath. ??? You get very weak or tired. ??? You pass out or faint. ??? You have any new symptoms, like fever, cough, numb legs, or you cough up blood. ??? You have anything else that worries you. Until you follow-up with your regular doctor please do the following: ??? Take one aspirin daily unless you have an allergy or are told not to by your doctor. ??? If a stress test appointment has been made, go to the appointment. ??? If you have questions, contact your regular doctor. If your doctor today has told you to follow-up with your regular doctor, it is very important that you make an appointment with your clinic and go to the appointment. If you do not follow-up with your primary doctor, it may result in missing an important development which could result in permanent injury or disability and/or lasting pain. If there is any problem keeping your appointment, call your doctor or return to the Emergency Department. If you were given a prescription for [...] contain Tylenol?? (acetaminophen), including Vicodin??, Tylenol #3??, Waelder??, Lortab??, and Percocet??. You should not take [...] if there is anything that worries you. AttachmentsThe following attachments cannot be sent through Care Everywhere. ESOPHAGITIS (POLISH)GERD (ADULT) (POLISH)documented in this encounter Medications at Time of Discharge Medication Sig Dispensed Refills Start Date End Date Cholecalciferol (VITAMIN Take by mouth 0 01/23/2015 D3 PO) daily cholecalciferol (VITAMIN Take 1 capsule 12 capsule 1 015 11/05/2015 D3) 15530 UNITS (50,000 Units) by capsuleIndications: mouth once [...] 15 days documented as of this encounter ED Notes Aida Mclain RN - 01/10/2015 3:05 AM CDT Pt states he took his first dose of propranolol tonight when his heart was beating fast then developed left sided chest pain, which worsens with breathing. 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 The patient reports that hehas had constant left-sided chest pain for the past 2-3 days, with the recent development of shortness of breath tonight, prompting him to present to the ED for evaluation. He states that his chest pain is non-radiating, non-exertional, and non-pleuritic. He has also been having associated nausea withseveral episodes of reflux, but no vomiting or hematemesis. The patient was seen in clinic on 01/01/15for complaint of palpitations with a negative workup and normal EKG, but he is not experiencing palpitations now. He notes that he was recently started on propranolol yesterday. The patient denies any recent leg pain/swelling, travel, surgeries, or history of blood clots. He denies any associated fevers, diaphoresis, cough, abdominal pain, bowel or bladder symptoms, lightheadedness, or any other belinda rning symptoms at this time. The patient had a TSH of 2.7 on 12/01/14. Cardiac Risk Factors Sex: Male Tobacco: Negative Hypertension: Negative Diabetes: Negative Lipids: Negative Family History: Negative PE/DVT Risk Factors Personal history: Negative Recent Travel: Negative Recent Surgery: Negative Tobacco: Negative Family History: Negative Hormones: Negative Cancer: Negative Trauma: Negative Allergies: No Known Drug Allergies Medications: Gabapentin Propranolol Cholecalciferol Cymbalta Past Medical History: Testicular CA Polymyalgia Cisplatin induced neuropathy Past Surgical History: Orchiectomy inguinal (1998) Family History: Mother: Obesity Father: Obesity Social History: Marital Status: Single [1] Negative for tobacco use. Positive for alcohol use (occasional). Review of Systems Constitutional: Negative for fever, chills and diaphoresis. Respiratory: Positive for shortness of breath. Negative for cough and wheezing. Cardiovascular: Positive for chest pain. Negative for palpitations and leg swelling. Gastrointestinal: Positive for nausea. Negative for vomiting, abdominal pain, diarrhea, constipationand blood in stool. Genitourinary: Negative for dysuria and hematuria. Neurological: Negative for light-headedness. All other systems reviewed and are negative. Physical Exam First Vitals: BP 134/98 mmHg Pulse 68 Temp(Src) 98.2 ??F (36.8 ??C) (Oral) Resp 18 Wt 81.647 kg (180 lb) SpO2 93% Physical Exam CONST: Alert and oriented x 3, normal speech. GCS 15. Not diaphoretic. Non- distressed, appears comfortable except mildly anxious, lying on stretcher. HENT: No soft tissue or bony deformities. MMM's, no trismus. No active rhinorrhea or epistaxis. No otorrhea or teague sign. EYES: Pupils equal. Bilateral EOM grossly intact. No injection, discharge, proptosis, or ptosis bilaterally. Non-icteric. NECK: Normal ROM, no rigidity or meningismus. No midline bony tenderness, deformity, or crepitus. Trachea midline, no stridor. No cervical LAD present bilaterally. PULM/CHEST: CTAB. No wheezes, rales, or rhonchi. No stridor. Normal effort, no respiratory distress.No chest tenderness, deformity, or crepitus. CARDIAC/VASC: RRR, no M/R/G. No peripheral edema. No JVD bilaterally. No pulsatile deformities, thrills, or bruits at bilateral carotids. No cyanosis, pallor, or mottling of all extremities. Bilateral radial pulses intact, normal strength, and equal. Normal capillary refill all digits bilateral UE's. ABD/GI: Mildly tender epigastric region only, otherwise non-tender all other abdominal locations, soft and without rebound or guarding all locations. : No CVA or flank tenderness bilaterally. MSK: Normal ROM all extremities. No gross bony deformities all extremities. No peripheral edema. NEURO: Alert and oriented x 3, normal speech. GCS 15.. Bilateral CN's 2-12 grossly intact. Grossly normal strength all extremities. Normal tone, no tremor or seizure-like activity. SKIN: No rash, erythema, cyanosis, pallor, mottling, or jaundice. No petechiae or purpura. No ecchymosis or open wounds. LYMPH: No anterior cervical LAD bilaterally. PSYCH: Mildly anxious. Emergency Department Course ECG @03:00: Indication: CP Vent. Rate 64 bpm. MD interval 178. QRS duration 82. QT/QTc 402/414. P-R-T axis 27 -8 17. Normal sinus rhythm. Normal EKG. Read time: 03:06. No significant change compared to EKG dated 01/06/15. Imaging: Chest X-Ray. 2 Views: No evidence of active cardiopulmonary disease. As per radiology. Laboratory: CBC: WBC 11.2 (high), HGB 16.1 (wnl), PLT 181 (wnl), o/w WNL INR: 0.95 (wnl) D dimer quantitative: <0.3 (wnl) BMP: Calcium 8.4 (low), o/w WNL (Creat 0.92) Magnesium: 2.2 (wnl) Lipase: 113 (wnl) Hepatic panel: AST 57 (high), o/w WNL Troponin I @0307: <0.015 (wnl) Interventions: 03:38 Zofran 4 mg IV 03:38 GI Cocktail 30 mL IV 04:38 Zantac 150 mg PO Emergency Department Course: Nursing notes and vitals reviewed. I performed an exam of the patient as documented above. 03:07 IV inserted and blood drawn. This was sent for laboratory testing, results above. 04:20 The patient was sent for imaging while in the emergency department, findings above. I personally reviewed the laboratory results with the Patient and answered all related questions prior to discharge. Findings and plan explained to the Patient. Patient discharged home with instructions regarding supportive care, medications, and reasons to return. The importance of close follow-up was reviewed. The patient was prescribed Zantac. 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 He apparently had palpitations on 01/01/15 for which he had an EKG which was normal, but also started on propranolol yesterday. His EKG shows no acute change and troponin is normal, therefore given the duration ofhis symptoms it rules him out for ischemia. No evidence of pericarditis and myocarditis. D dimer is normal, therefore essentially ruling out PE as he has had no recent travel and has no other risk factors other than previous cancer diagnosis, but this has been in long-standing remission and he has no current lower extremity edema or swelling. He is not hypoxic or tachycardic. Chest x-ray shows no evidence of pneumonia, pneumothorax, or mediastinal widening. Given lack of back pain and bilateral upper extremity normal strength and equal pulses, this is not likely dissection. He also has no personal or family history of connective tissue disorder. He is afebrile, with no evidence of pneumonia. Bloodpressure was initially slightly elevated, but this improved to 134/98. I suspect his symptoms are more related to anxiety. He did have some epigastric tenderness, but LFT's and lipase are normal. Potassium had high normal values, but slightly hemolyzed, therefore I did not feel this needed to be rechecked. He has had some nausea, no diarrhea, hematemesis, coffee ground emesis, and his hemoglobin is normal, therefore I have low suspicion for GI bleed. I recommend he try Prilosec or Pepcid, as his medicines may have caused some gastric discomfort or he may have a viral process. GI Cocktail did provide some alleviation of the chest discomfort. Diagnosis: ICD-10-CM ICD-9-CM 1. Atypical chest pain R07.89 786.59 2. Neuropathy G62.9 355.9 3. Nausea with vomiting R11.2 787.01 4. Esophageal reflux K21.9 530.81 Discharge Medications: Details ranitidine (ZANTAC) 150 MG tablet Take 1 tablet (150 mg) by mouth 2 times daily for 15 days Qty: 30 tablet, Refills: 0 Muriel Doran, [place] serving as a scribe on 11/17/2014 at 8:01 AM to personally document services performed by Dr. Meier based on my observations and the provider's statements to me. Muriel Allen 01/10/2015 [facility] EMERGENCY DEPARTMENT Mihai Meier MD 01/11/15 0838 Aida Mclain RN - 01/10/2015 3:01 AM CDT Bed: ED02 Expected date: 01/10/15 Expected time: 2:48 AM Means of arrival: Comments: 596 documented in this encounter Plan of Treatment Not on filedocumented as of this encounter Procedures Procedure Name Priority Date/Time Associated Comments Diagnosis XR CHEST 2 VIEWS STAT 01/10/2015 4:35 AM Resul ts for this CDT procedure are i n the results section. CBC WITH PLATELETS & STAT 01/10/2015 3:07 AM R esults for this DIFFERENTIAL CDT procedure are i n the results section. TROPONIN I STAT 01/10/2015 3:07 AM Results f or this CDT procedure are i n the results section. INR STAT 01/10/2015 3:07 AM Results f or this CDT procedure are i n the results section. MAGNESIUM STAT 01/10/2015 3:07 AM Results f or this CDT procedure are i n the results section. LIPASE STAT 01/10/2015 3:07 AM Results f or this CDT procedure are i n the results section. HEPATIC FUNCTION STAT 01/10/2015 3:07 AM Resul ts for this PANEL CDT procedure are i n the results section. D DIMER QUANTITATIVE STAT 01/10/2015 3:07 AM R esults for this CDT procedure are i n the results section. BASIC METABOLIC PANEL STAT 01/10/2015 3:07 AM Results for this CDT procedure are i n the results section. EKG 12-LEAD, TRACING STAT 01/10/2015 3:00 AM R esults for this ONLY CDT procedure are i n the results section. documented in this encounter Results Chest XR, PA & LAT (01/10/2015 4:35 AM CDT) Anatomical Region Laterality Modality Chest Computed Radiography Specimen (Source) Anatomical Location Collection Method / Collectio n Time Received Time / Laterality Volume Impressions 01/10/2015 4:55 AM CDT IMPRESSION: No evidence of active cardiopulmonary disease. DAMIAN TRONCOSO MD Narrative 01/10/2015 4:55 AM CDT CHEST 2 VIEWS ??01/10/2015 4:35 AM HISTORY: Chest pain. COMPARISON: None. FINDINGS: The lungs are clear. Normal-si zed cardiac silhouette. Surgical clips in the upper right hemiab domen likely relate to prior cholecystectomy. Procedure Note Damian Troncoso MD - 01/10/2015Fo rmatting of this note might be different from the original. CHEST 2 VIEWS 01/10/2015 4:35 AM HISTORY: Chest pain. COMPARISON: None. FINDINGS: The lungs are clear. Normal-si zed cardiac silhouette. Surgical clips in the upper right hemiab domen likely relate to prior cholecystectomy. IMPRESSION IMPRESSION: No evidence of active cardio pulmonary disease. DAMIAN TRONCOSO MD Mihai Meier MD IMG DIAGNOSTIC IMAGING ORDER VANESSA Troponin I (01/10/2015 3:07 AM CDT) [facility] Method Time Signature Troponin I ES <0.015 0.000 - [place] The 99th percentile for uppe r reference range is 0.045 ug/L. ??Troponin values in 0.045 RIDGES the range of 0.045 - 0.120 ug/L may be associated wit h risks of adverse ug/L HOSPITAL clinical events. Specimen Anatomical Collection Method Collection Time Receive d Time (Source) Location / / Volume Laterality Blood specimen 01/10/2015 3:07 AM 015 3:22 (specimen) CDT AM CDT Mihai Meier MD LAB - BLOOD ORDERABLES Performing Organization Address City/[facility]/ZIP [facility] Phon e Number [facility] [address], [place] [address] [place] [address] [address] [place], [place] [address], [facility] [phone] (ABNORMAL) Hepatic panel (01/10/2015 3:07 AM CDT) athologist Signature Bilirubin Direct <0.1 0.0 - 0.2 [place] mg/dL [facility] Bilirubin Total 0.7 0.2 - 1.3 [place] mg/dL [facility] Albumin 3.8 3.4 - 5.0 [place] g/dL [facility] Protein Total 7.9 6.8 - 8.8 [place] g/dL [facility] Alkaline 98 40 - 150 [place] Phosphatase U/L [facility] ALT 52 0 - 70 U/L [facility] AST 57 (H) 0 - 45 U/L [facility] Specimen Anatomical Collection Method Collection Time Receive d Time (Source) Location / / Volume Laterality Blood specimen 01/10/2015 3:07 AM 015 3:22 (specimen) CDT AM CDT Mihai Meier MD LAB - BLOOD ORDERABLES Performing Organization Address City/State/ZIP Code Phon e Number [facility] [address], [place] [address] [place] [address] [address] [place], [place] [address], [facility] [phone] Lipase (01/10/2015 3:07 AM CDT) athologist Signature Lipase 113 73 - 393 [facility] U/L HOSPITAL Specimen Anatomical Collection Method Collection Time Receive d Time (Source) Location / / Volume Laterality Blood specimen 01/10/2015 3:07 AM 015 3:22 (specimen) CDT AM CDT Mihai Meier MD LAB - BLOOD ORDERABLES Performing Organization Address City/[facility] [address], [place] [address] [facility] [address] [place], [place] [address], [facility] [phone] Magnesium (01/10/2015 3:07 AM CDT) athologist Signature Magnesium 2.2 1.6 - 2.3 [facility] mg/dL HOSPITAL Specimen Anatomical Collection Method Collection Time Receive d Time (Source) Location / / Volume Laterality Blood specimen 01/10/2015 3:07 AM 015 3:22 (specimen) CDT AM CDT Mihai Meier MD LAB - BLOOD ORDERABLES Performing Organization Address [facility] [address], [place] [address] [facility] [address] [place], [place] [address], [facility] [phone] (ABNORMAL) Basic metabolic panel (01/10/2015 3:07 AM CDT) athologist Signature Sodium 136 133 - 144 [facility] mmol/L [facility] Potassium 5.2 3.4 - 5.3 [facility] mmol/L [facility] Comment: Specimen moderately hemolyzed, Potassium may be falsely elevated Chloride 104 94 - 109 mmol/L [facility] Carbon Dioxide 27 20 - 32 mmol/L [facility] Anion Gap 5 3 - 14 mmol/L [facility] Glucose 96 70 - 99 mg/dL [facility] Urea Nitrogen 13 7 - 30 mg/dL [facility] Creatinine 0.92 0.66 - 1.25 mg/dL [facility] GFR Estimate >90 >60 mL/min/1.7m2 [facility] Non GFR Calc HOSPITAL GFR Estimate If Black >90 >60 mL/min/1.7m2 F [facility] GFR Calc HOSP ITAL Calcium 8.4 (L) 8.5 - 10.1 mg/dL [facility] Specimen Anatomical Collection Method Collection Time Receive d Time (Source) Location / / Volume Laterality Blood specimen 01/10/2015 3:07 AM 015 3:22 (specimen) CDT AM CDT Mihai Meier MD LAB - BLOOD ORDERABLES Performing Organization Address City/State/ZIP Code Phon e Number [facility] [address], [place] [address] [facility] [address] [place], [place] [address] [facility] [phone] D dimer quantitative (01/10/2015 3:07 AM CDT) P athologist Signature D Dimer <0.3 0.0 - 0.50 [facility] ug/ml [facility] Specimen Anatomical Collection Method Collection Time Receive d Time (Source) Location / / Volume Laterality Blood specimen 01/10/2015 3:07 AM 015 3:22 (specimen) CDT AM CDT Mihai Meier MD LAB - BLOOD ORDERABLES Performing Organization Address City/[facility]/ZIP Code Phon e Number [facility] [address], [place] [address] [facility] [address] [place], [place] [address], [facility] [phone] INR (01/10/2015 3:07 AM CDT) P athologist Signature INR 0.95 0.86 - 1.14 [facility] Specimen Anatomical Collection Method Collection Time Receive d Time (Source) Location / / Volume Laterality Blood specimen 01/10/2015 3:07 AM 015 3:22 (specimen) CDT AM CDT Mihai Meier MD LAB - BLOOD ORDERABLES Performing Organization Address City/State/ZIP Code Phon e Number [facility] [address], [place] [address] [facility] [address] [place] [address] [phone] (ABNORMAL) CBC with platelets differential (01/10/2015 3:07 AM CDT) [facility] Method Time Signature WBC 11.2 (H) 4.0 - [place] [address] RBC Count 5.10 4.4 - 5.9 [place] [id number] Hemoglobin 16.1 13.3 - [place] 17.7 g/dL [facility] Hematocrit 44.8 40.0 - [place] 53.0 % [facility] MCV 88 78 - 100 [place] fl [facility] MCH 31.6 26.5 - [place] 33.0 pg [facility] MCHC 35.9 31.5 - [place] 36.5 g/dL [facility] RDW 12.8 10.0 - [place] 15.0 % [facility] Platelet Count 181 150 - [address] Diff Method Automated [facility] % Neutrophils 59.1 % [facility] % Lymphocytes 24.5 % [facility] % Monocytes 9.2 % [facility] % Eosinophils 6.1 % [facility] % Basophils 0.4 % [facility] % Immature 0.7 % [place] Granulocytes [facility] Absolute 6.6 1.6 - 8.3 [place] Neutrophil [address] [place] [address] Absolute 2.7 0.8 - 5.3 [place] Lymphocytes [address] [place] [address] Absolute 1.0 0.0 - 1.3 [place] Monocytes [address] [place] [address] Absolute 0.7 0.0 - 0.7 [place] Eosinophils [address] [place] [address] Absolute 0.1 0.0 - 0.2 [place] Basophils [address] [place] [address] Abs Immature 0.1 0 - 0.4 [place] Granulocytes [address] [place] [address] Specimen Anatomical Collection Method Collection Time Receive d Time (Source) Location / / Volume Laterality Blood specimen 01/10/2015 3:07 AM 015 3:22 (specimen) CDT AM CDT Mihai Meier MD LAB - BLOOD ORDERABLES Performing Organization Address City/State/ZIP Code Phon e Number [facility] [address] [place] [address] [facility] [address] [place], [place] [address] [address] [phone] EKG 12 lead (01/10/2015 3:00 AM CDT) [facility] gist Method Time Signature Interpretation ECG Click View RADIOLOGY Image link RESULTS to view waveform and result Specimen (Source) Anatomical Collection Method Collection Time Re ceived Time Location / / Volume Laterality 01/10/2015 3:00 AM CDT Mihai Meier MD ECG ORDERABLES Performing Organization Address City/State/ZIP Code Phon e Number RADIOLOGY RESULTS documented in this encounter Visit Diagnoses Diagnosis Atypical chest pain Other chest pain Neuropathy Mononeuritis of unspecified site Nausea with vomiting Esophageal reflux documented in this encounter Administered Medications Inactive Administered Medications - up to 3 most recent administrations Medication Order MAR Action Action Date Dose Rate Site lidocaine (XYLOCAINE) 2 % 15 mL, Given 01/10/2015 3:38 AM CDT 30 mLs alum & mag hydroxide-simethicone (MYLANTA ES/MAALOX ES) 15 mL GI Cocktail 30 mL, Oral, ONCE, On Yes[place] 01/10/15 at 0306, For 1 dose ondansetron (ZOFRAN) injection 4 mg Given 01/10/2015 3:38 AM CDT 4 mg 4 mg, Intravenous, EVERY 30 MIN PRN, nausea, vomiting, Administer over 2-5 Minutes, Starting on Yesenia 01/10/15 at 0320, For 3 doses ranitidine (ZANTAC) tablet 150 mg Given 01/10/2015 4:38 AM CDT 150 mg 150 mg, Oral, ONCE, On [place] 01/10/15 at 0436, For 1 dose documented in this encounter Active and Recently Administered Medications Times are shown in CDT. Scheduled Medication Order 01/08/2015 01/09/2015 01/10/2015 lidocaine (XYLOCAINE) 2 % 15 mL, alum & mag hydroxide-simethicone (MYLANTA ES/MAALOX ES) 15 mL GI Cocktail (COMPLETED) 0338 (Given - Provider: Aida Mclain RN) 30 mL, Oral, ONCE, Yes[place] 01/10/15 at 0306, For 1 dose ranitidine (ZANTAC) tablet 150 mg (COMPLETED) 0438 (Given - Provider: Maureen Gutierres, BRUCE) 150 mg, Oral, ONCE, [place] 01/10/15 at 0436, For 1 dose PRN Medication Order 01/08/2015 01/09/2015 01/10/2015 ondansetron (ZOFRAN) injection 4 mg (CANCELED) 0338 (Given - Provider: Aida Mclain, BRUCE) 4 mg, Intravenous, EVERY 30 MIN PRN, patrick sea, vomiting, for 2 Minutes, Starting Yesenia 01/10/15 at 0320, For 3 doses documented in this encounter Care Teams Advanced Practice Rn Relationship Specialty Start Date End Date Carlos Chapman MD PCP - General Family Practice 02/06/14 04/29/19 documented as of this encounter
--- OUTSIDE RECORDS SUMMARY | 2022-03-31 16:59 | XMS_ITS | Encounter Summary ---
:1985 Author Organization [place] Address [address] [place] [address] Care Team Providers Name Role Phone Carlos Chapman MD Primary Care Provider [phone] Reason for Visit Rehab Therapy Integrated Services - Closed Specialty Diagnoses / Procedures Referred By Contact Refer red To Contact Diagnoses Neuropathy Fatigue [facility] [address] [place], [place] [address] Phone: Fax: Referral ID Status Reason Start Date Expiration Date Visits V isits Requested Authorized [facility]- PT/OT Closed 12/03/2014 01/28/2015 365 365 ([id number]) Encounter Details Date Type Department Care Team Description 01/10/2015 Hospital Encounter [facility] Olivia Bejarano i, DO [facility] [address] [place], [place] [address] Rehabilitation Services Francheska Singh, OT [facility] [address] [place] [address] [facility] [address] [place] [address] Social History Tobacco Use Types [...] capsule 12 capsule 1 015 11/05/2015 D3) 16329 UNITS (50,000 Units) by capsuleIndications: mouth once [...] on filedocumented in this encounter Care Teams Amalgamator Relationship Specialty Start Date End Date Carlos Chapman MD PCP - General Family Practice 02/06/14 04/29/19 documented as of this encounter
--- OUTSIDE RECORDS SUMMARY | 2022-03-31 16:59 | XMS_ITS | Encounter Summary ---
:1985 Author Organization [place] Address [address] [place] [address] Care Team Providers Name Role Phone Carlos Chapman MD Primary Care Provider [phone] Encounter Details Date Type Department Care Team Description 12/10/2014 Medical Correspondence [facility] HIM Scan, OUTPATIENT REHAB [facility] Non-Provider SERVICES ORDER Health Information 12/10/14 Management-RAJINDER [address] [place] [address] Social History Tobacco Use Types [...] on filedocumented in this encounter Care Teams Stacker And Sorter Operator Relationship Specialty Start Date End Date Carlos Chapman MD PCP - General Family Practice 02/06/14 04/29/19 documented as of this encounter
--- OUTSIDE RECORDS SUMMARY | 2022-03-31 16:59 | XMS_ITS | Encounter Summary ---
:1985 Author Organization [place] Address [address] [place] [address]. [place] [address] Care Team Providers Name Role Phone Carlos Chapman MD Primary Care Provider [phone] Reason for Visit Reason Onset Date Comments Call Back 01/10/2015 ER F/U 01/10/2015 Encounter Details Date Type Department Care Team Description 01/10/2015 Telephone [facility] Carlos Chapman, Call Back; ER F/U Anjel BAEZA [address] [place] [address] [address] [place] [address] [place], [place] [phone] (Wo rk) [address] [phone] Social History Tobacco Use Types Packs/Day Years Used Date Smoking Tobacco: Never Smokeless Tobacco: Never Alcohol Use Standard Drinks/Week Comments Yes 0 (1 standard drink = 0.6 oz pure alcoho l) occ Sex Assigned at Date Recorded Not on file documented as of this encounter Miscellaneous Notes Telephone Encounter - Margareth Devries RN - 01/14/2015 8:43 AM CDT Patient notified. Margareth Devries RN Telephone Encounter - Carlos Chapman MD - 01/14/2015 7:33 AM CDT He can try. Advise going to 2 tabs gabapentin daily for three days, then one tab daily for three daythen stop. May simply double Cymbalta dose. F/u 1m Carlos Chapman MD Telephone Encounter - Stefany Lau RN - 01/10/2015 12:46 PM CDT Pt was in the ED overnight and was told by ER provider that the gabapentin is most likely causing his issues and pt would like to wean off this and increase his cymbalta. Please advise and call pt back with troy Lau RN, BSN ED for acute condition Discharge Protocol Hi, my name is Stefany Lau, a registered nurse, and I am calling from [facility]. I am calling to follow up and see how things are going for you after your recent emergency visit. Tell me how you are doing now that you are home? doing ok now Discharge Instructions Let's review your discharge instructions. What is/are the follow-up recommendations? Pt. Response: not indicated in d/c summary Has an appointment with your primary care provider been scheduled? No (not needed) Medications Tell me what changed about your medicines when you discharged? Given zantac but pt does not want to take What questions do you have about your medications? Pt would like to wean off gabapentin Call Summary What questions or concerns do you have about your recent visit and your follow- up care? pt would like to wean off gabapentin and increase cymbalta. . Advice given: will have PCP advise onrequest If you have questions or things don't continue to improve, we encourage you contact us through the main clinic number (give number). Even if the clinic is not open, triage nurses are available 21/12 tohelp you. We would like you to know that our clinic has extended hours (provide information). We also have urgent care (provide details on closest location and hours/contact info) Thank you for your time and take care! Telephone Encounter - ErosAracelis Cristóbal - 01/10/2015 12:43 PM CDT Ph. [phone] Patient states he was brought to ER last night and has some follow up questions. Thanks! Aracelis Cooney Face Man documented in this encounter Plan of Treatment Not on filedocumented as of this encounter Visit Diagnoses Not on filedocumented in this encounter Care Teams Senior Java Developer Relationship Specialty Start Date End Date Carlos Chapman MD PCP - General Family Practice 02/06/14 04/29/19 documented as of this encounter
--- OUTSIDE RECORDS SUMMARY | 2022-03-31 16:59 | XMS_ITS | Encounter Summary ---
:1985 Author Organization [place] Address [address] [facility] [place] [address] Care Team Providers Name Role Phone Carlos Chapman MD Primary Care Provider [phone] Reason for Referral CV Cardio consult - Closed Specialty Diagnoses / Procedures Referred By Contact Refer red To Contact Diagnoses Palpitations Mic Hester [facility] [address] [place] [id number] [place] [address] [address] [place] [address] Phone: [phone] Fax: Referral ID Status Reason Start Date Expiration Date Visits Requ ested Visits Authorized [id number] Closed 01/09/2015 01/09/2016 1 1 Reason for Visit Reason Comments RECHECK palpitations, shortness of b reath, dizziness, lightheadedness, feet felt ice cold last night Encounter Details Date Type Department Care Team Description 01/09/2015 Office Visit [facility] Mic Hester ations (Primary Dx); Clinic Anjel Gramajo PA-C Cisplatin induced neuropathy (H) [address] [address] [facility], [address] [place] [phone] Social History Tobacco Use Types Packs/Day Years Used Date Smoking Tobacco: Never Smokeless Tobacco: Never Alcohol Use Standard Drinks/Week Comments Yes 0 (1 standard drink = 0.6 oz pure alcoho l) occ Sex Assigned at Date Recorded Not on file documented as of this encounter Last Filed Vital Signs Vital Sign Reading Time Taken Comments Blood Pressure 132/82 01/09/2015 11:44 AM CDT Pulse 84 01/09/2015 11:44 AM CDT Temperature 37.1 ??C (98.7 ??F) 01/09/2015 11:44 AM CDT Respiratory Rate 16 01/09/2015 11:44 AM CDT Oxygen Saturation 95% 01/09/2015 11:44 AM CDT Inhaled Oxygen Concentration - - Weight 93.4 kg (206 lb) 01/09/2015 11:44 AM CDT Height - - Body Mass Index 32.26 11/16/2014 9:50 PM CDT documented in this encounter Progress Notes Mic Hester PA-C - 01/09/2015 11:47 AM CDT HPI SUBJECTIVE: Ronn Hinkle is a 29 year old male who presents to clinic today for the following health issues: Recheck chest pain, palpitations; having dizziness, lightheadedness, shortness of breath, feet felt ice cold last night. Ronn is here to re-evaluate the above sx. He was just in last week to discuss this an other sx that he felt were related to a dose increase in gabapentin. He has now back off that to one cap TID. He has not noticed a change in his pain/stiffness nor in his chest sx. He just started Cymbalta two daysago. His BP has been a bit labile in the past year or so. He is wondering about his testosterone level due to the PHM of testicular cancer. He notes the feeling of hot flashes occasionally coming over him. Over the weekend he was on a vacation and while trying to walk around sightseeing he noticed an intolerance to exercise or walking even short distances with additional pressure in his chest. Problem list and histories reviewed & adjusted, as indicated. Additional history: as documented BP Readings from Last 3 Encounters: 01/09/15 132/82 01/01/15 126/74 12/28/14 145/100 Wt Readings from Last 3 Encounters: 01/09/15 206 lb (93.441 kg) 01/01/15 205 lb (92.987 kg) 12/28/14 204 lb (92.534 kg) Labs reviewed in [facility] Problem list, Medication list, Allergies, and Medical/Social/Surgical histories reviewed in [facility] andupdated as appropriate. ROS: Constitutional, HEENT, cardiovascular, pulmonary, gi and gu systems are negative, except as otherwise noted. OBJECTIVE: BP 132/82 mmHg Pulse 84 Temp(Src) 98.7 ??F (37.1 ??C) (Oral) Resp 16 Wt 206 lb (93.441 kg) SpO2 95% Body mass index is 32.26 kg/(m^2). GENERAL APPEARANCE: healthy, alert and no distress RESP: lungs clear to auscultation - no rales, rhonchi or wheezes CV: regular rates and rhythm, normal S1 S2, no S3 or S4 and no murmur, click or rub SKIN: no suspicious lesions or rashes NEURO: Normal strength and tone, mentation intact and speech normal PSYCH: mentation appears normal and affect flat Diagnostic test results: none ASSESSMENT/PLAN: ICD-10-CM ICD-9-CM 1. 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 He can try propranolol for now to see if this helps sx. OK to back off on Gabapentin 300 TID if this controls other sx. He is to discuss with Pain Mgmt doctor about this as well. Continue with Cymbalta. Mic Hester PA-C [facility] ROS Physical Exam documented in this encounter Nursing Notes Saniya Goetz MA - 01/09/2015 11:56 AM CDT Chief Complaint Patient presents with ??? RECHECK palpitations, shortness of breath, dizziness, lightheadedness, feet felt ice cold last night Initial BP 132/82 mmHg Pulse 84 Temp(Src) 98.7 ??F (37.1 ??C) (Oral) Resp 16 Wt 206 lb (93.441 kg) SpO2 95% Estimated body mass index is 32.26 kg/(m^2) as calculated from the following: Height as of 11/16/14: 5' 7 (1.702 m). Weight as of this encounter: 206 lb (93.441 kg). 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
--- OUTSIDE RECORDS SUMMARY | 2022-03-31 16:59 | XMS_ITS | Encounter Summary ---
:1985 Author Organization [place] Address [address] [place] [address]. [place] [address] Care Team Providers Name Role Phone Carlos Chapman MD Primary Care Provider [phone] Reason for Visit Reason Onset Date Comments Forms 01/07/2015 Encounter Details Date Type Department Care Team Description 01/07/2015 Telephone [facility] Pain Gudelia Bejarano DO Forms Management [facility] [address] [facility] [address] [place] [address] [address] [place] [address] [place] [address] [phone] Social History Tobacco Use Types Packs/Day Years Used Date Smoking Tobacco: Never Smokeless Tobacco: Never Alcohol Use Standard Drinks/Week Comments Yes 0 (1 standard drink = 0.6 oz pure alcoho l) occ Sex Assigned at Date Recorded Not on file documented as of this encounter Miscellaneous Notes Telephone Encounter - Kacie Kimball RN - 01/07/2015 10:03 AM CDT KULDEEP Paz faxed form to pt's employer and placed in scanning bin. GIULIA Matute, RN- Unix Administrator [facility] Telephone Encounter - Bettina Bejarano DO - 01/07/2015 9:55 AM CDT Paper work completed for patient's employer and given to nurse to scan into chart and fax back. Bettina Bejarano DO [facility] documented in this encounter Plan of Treatment Not on filedocumented as of this encounter Visit Diagnoses Not on filedocumented in this encounter Care Teams Table Games Floor Supervisor Relationship Specialty Start Date End Date Carlos Chapman MD PCP - General Family Practice 02/06/14 04/29/19 documented as of this encounter
--- OUTSIDE RECORDS SUMMARY | 2022-03-31 16:59 | XMS_ITS | Encounter Summary ---
:1985 Author Organization [place] Address [address] [facility] [place] [address] Care Team Providers Name Role Phone Carlos Chapman MD Primary Care Provider [phone] Reason for Visit Reason Onset Date Comments Medication Question 12/03/2014 Encounter Details Date Type Department Care Team Description 12/03/2014 Refill [facility] Pain Gudelia Bejarano DO Medication Question Management Center [facility] [address] [facility] [address] [place], [place] [phone] [place] [address] (Wo rk) Social History Tobacco Use Types Packs/Day Years Used Date Smoking Tobacco: Never Smokeless Tobacco: Never Alcohol Use Standard Drinks/Week Comments Yes 0 (1 standard drink = 0.6 oz pure alcoho l) occ Sex Assigned at Date Recorded Not on file documented as of this encounter Miscellaneous Notes Telephone Encounter - Kacie Kimball RN - 12/03/2014 2:43 PM CDT Called [facility] pharmacy back and pt is requesting 3 month supply of gabapentin as he gets insurance discount for larger quantity. Will ask Dr. Bejarano to review. Prepped new rx for 90 day supply. GIULIA Matute, RN- Semiconductor Packages Tester [facility] Telephone Encounter - Kacie Kimball RN - 12/03/2014 12:55 PM CDT [facility] called and left VM that they need clarification on gabapentin refill. 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
--- OUTSIDE RECORDS SUMMARY | 2022-03-31 16:59 | XMS_ITS | Encounter Summary ---
:1985 Author Organization [place] Address [address] [facility] [place] [address] Care Team Providers Name Role Phone Carlos Chapman MD Primary Care Provider [phone] Reason for Visit Rehab Therapy Integrated Services - Closed Specialty Diagnoses / Procedures Referred By Contact Refer red To Contact Diagnoses Neuropathy Fatigue [facility] [address] [place], [place] [address] Phone: Fax: Referral ID Status Reason Start Date Expiration Date Visits V isits Requested Authorized FR- PT/OT Closed 12/03/2014 01/28/2015 365 365 ([id number]) Encounter Details Date Type Department Care Team Description 12/14/2014 Hospital Encounter [facility] Olivia Bejarano i, DO [facility] [address] [place] [address] Rehabilitation Services Kacie Santiago, PT [address] [place], [place] [address] [place] [address] [address] Social History Tobacco Use Types Packs/Day Years Used Date Smoking Tobacco: Never Smokeless Tobacco: Never Alcohol Use Standard Drinks/Week Comments Yes 0 (1 standard drink = 0.6 oz pure alcoho l) occ Sex Assigned at Date Recorded Not on file documented as of this encounter Medications at Time of Discharge Medication Sig Dispensed Refills Start Date End Date baclofen (LIORESAL) 10 MG Take 1.5 tablets 135 tablet 5 10/3001/01/2015 tabletIndications: (15 mg) by mouth 3 Polymyalgia (H), Muscle times daily stiffness Cholecalciferol (VITAMIN Take by mouth 0 01/23/2015 D3 PO) daily gabapentin (NEURONTIN) Increase dose to 360 capsule 0 201401/09/2015 300 MG 300 mg-300 mg-600 capsuleIndications: mg for 1 wk, then Cisplatin induced increase to 600 neuropathy (H) mg-300 mg-600 mg for 1 wk then increase to 600 mg Three times daily documented as of this encounter Plan of Treatment Not on filedocumented as of this encounter Visit Diagnoses Not on filedocumented in this encounter Care Teams Submarine Operator Relationship Specialty Start Date End Date Carlos Chapman MD PCP - General Family Practice 02/06/14 04/29/19 documented as of this encounter
--- OUTSIDE RECORDS SUMMARY | 2022-03-31 16:59 | XMS_ITS | Encounter Summary ---
:1985 Author Organization [place] Address [address] [place] [address] Care Team Providers Name Role Phone Carlos Chapamn MD Primary Care Provider [phone] Reason for Visit Rehab Therapy Integrated Services - Closed Specialty Diagnoses / Procedures Referred By Contact Refer red To Contact Diagnoses Neuropathy Fatigue [facility] [address] [place], [place] [address] Phone: Fax: Referral ID Status Reason Start Date Expiration Date Visits V isits Requested Authorized FR- PT/OT Closed 12/03/2014 01/28/2015 365 365 ([id number]) Encounter Details Date Type Department Care Team Description 12/21/2014 Hospital Encounter [facility] Olivia Bejarano i, DO [facility] [address] [place] [address] Rehabilitation Services Kacie Santiago, PT [address] [place], [place] [address] [place] [address] [address] Social History Tobacco Use Types [...] on filedocumented in this encounter Care Teams Irrigation Pump Installer Relationship Specialty Start Date End Date Carlos Chapman MD PCP - General Family Practice 02/06/14 04/29/19 documented as of this encounter
--- OUTSIDE RECORDS SUMMARY | 2022-03-31 16:59 | XMS_ITS | Encounter Summary ---
:1985 Author Organization [place] Address [address] [place] [address] Care Team Providers Name Role Phone Carlos Chapman MD Primary Care Provider [phone] Reason for Visit Reason Onset Date Comments Refill Request 12/03/2014 gabapentin dose incr ease Encounter Details Date Type Department Care Team Description 12/03/2014 Refill [facility] Pain Bettina Bejarano, Refill Request Management Center DO (gabapentin dose [address] [facility] PAIN increase) [place] [address] [place], [place] [address] [address] [place], [place] [address] (Wo rk) Social History Tobacco Use Types Packs/Day Years Used Date Smoking Tobacco: Never Smokeless Tobacco: Never Alcohol Use Standard Drinks/Week Comments Yes 0 (1 standard drink = 0.6 oz pure alcoho l) occ Sex Assigned at Date Recorded Not on file documented as of this encounter Miscellaneous Notes Telephone Encounter - Kacie Kimball RN - 12/03/2014 8:43 AM CDT Xuan with pharmacy called and left VM on Wednesday, November 30 at 1509 and need new rx as gabapentin was increased. Pt seen on 11-30-14 for appt and recs made as follows: Increase to 300 mg - 300 mg - 600 mg for 1 week, then increase to 600 mg - 300 mg - 600 mg for 1 week, then increase to 600 mg three times a day. Prepped new rx and will ask Dr. Bejarano to review and sign. 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
--- OUTSIDE RECORDS SUMMARY | 2022-03-31 16:59 | XMS_ITS | Encounter Summary ---
:1985 Author Organization [place] Address [address] [place] [address] Care Team Providers Name Role Phone Carlos Chapman MD Primary Care Provider [phone] Reason for Visit Reason Comments Recheck Medication Chest Pain Has been having tachycardia, palpitations, chest tightness Encounter Details Date Type Department Care Team Description 01/01/2015 Office Visit [facility] Mic Hester (H) (Primary Dx); Clinic [place] DANIKA Gramajo Muscle stiffness; [place] [address] [address] Palpitations; [address], [address] [place] [address] Vitamin D deficiency [place], [place] [phone] (Wo rk) [id number] [phone] Social History Tobacco Use Types Packs/Day Years Used Date Smoking Tobacco: Never Smokeless Tobacco: Never Alcohol Use Standard Drinks/Week Comments Yes 0 (1 standard drink = 0.6 oz pure alcoho l) occ Sex Assigned at Date Recorded Not on file documented as of this encounter Last Filed Vital Signs Vital Sign Reading Time Taken Comments Blood Pressure 126/74 01/01/2015 11:23 AM CDT Pulse 92 01/01/2015 11:23 AM CDT Temperature 37.3 ??C (99.1 ??F) 01/01/2015 11:23 AM CDT Respiratory Rate 20 01/01/2015 11:23 AM CDT Oxygen Saturation - - Inhaled Oxygen Concentration - - Weight 93 kg (205 lb) 01/01/2015 11:23 AM CDT Height - - Body Mass Index 32.11 11/16/2014 9:50 PM CDT documented in this encounter Progress Notes Mic Hester PA-C - 01/01/2015 11:12 AM CDT HPI SUBJECTIVE: Ronn Hinkle is a 29 year old male who presents to clinic today for the following health issues: Medication Followup of Gabapentin ?? Taking Medication as prescribed: yes ?? Side Effects: Chest pressure, swelling, joint inflammation ?? Medication Helping Symptoms: yes Patient states he saw Dr. Bejarano from pain clinic on Wednesday, she has recommended some labs be done, please see notes. BP has been elevated or going up at each visit. Nathan is unsure of family medical history in terms of cardiac or HTN. He is concerned about the feeling of pressure in chest and palpitations with the increase in dose of gabapentin. Dr. Bejarano has additionally mentioned considering Cymbalta as an option to help control his chronic pain but wants his PCP to manage this mediation. He is willing to try this. He is overall pleased with his care at the pain clinic. He is attending physical therapy as well. He has a PMH of low vitamin D and occasionally takean OTC supplement but has not had his levels checked lately. Problem list and histories reviewed & adjusted, as indicated. Additional history: as documented Labs reviewed in [facility] Problem list, Medication list, Allergies, and Medical/Social/Surgical histories reviewed in [facility] andupdated as appropriate. ROS: Constitutional, HEENT, cardiovascular, pulmonary, gi and gu systems are negative, except as otherwise noted. OBJECTIVE: BP 126/74 mmHg Pulse 92 Temp(Src) 99.1 ??F (37.3 ??C) (Oral) Resp 20 Wt 205 lb (92.987 kg) Body mass index is 32.1 kg/(m^2). GENERAL: healthy, alert and no distress NECK: no adenopathy, no asymmetry, masses, or scars and thyroid normal to palpation CV: regular rate and rhythm, normal S1 S2, no S3 or S4, no murmur, click or rub, no peripheral edemaand peripheral pulses strong MS: no gross musculoskeletal defects noted, no edema SKIN: no suspicious lesions or rashes PSYCH: mentation appears normal and affect flat Diagnostic Test Results: Results for orders placed or performed in visit on 01/01/15 TSH with free T4 reflex Result Value Ref Range TSH 2.70 0.40 - 4.00 mU/L Vitamin D Deficiency Result Value Ref Range Vitamin D Deficiency screening 25 (L) 30 - 75 ug/L Parathormone intact Result Value Ref Range Parathormone Intact 49 12 - 72 pg/mL Basic metabolic panel Result Value Ref Range Sodium 140 133 - 144 mmol/L Potassium 3.6 3.4 - 5.3 mmol/L Chloride 106 94 - 109 mmol/L Carbon Dioxide 27 20 - 32 mmol/L Anion Gap 7 3 - 14 mmol/L Glucose 100 (H) 70 - 99 mg/dL Urea Nitrogen 16 7 - 30 mg/dL Creatinine 1.07 0.66 - 1.25 mg/dL GFR Estimate 81 >60 mL/min/1.7m2 GFR Estimate If Black >90 GFR Calc >60 mL/min/1.7m2 Calcium 8.7 8.5 - 10.1 mg/dL ASSESSMENT/PLAN: Problem List Items Addressed This Visit Muscle stiffness Relevant Medications DULoxetine (CYMBALTA) DR capsule Other Relevant Orders Vitamin D Deficiency (Completed) Parathormone intact (Completed) Basic metabolic panel (Completed) Polymyalgia - Primary Relevant Medications DULoxetine (CYMBALTA) DR capsule Other Visit Diagnoses Palpitations Relevant Orders TSH with free T4 reflex (Completed) Parathormone intact (Completed) Basic metabolic panel (Completed) EKG 12-lead complete w/read - Clinics (Completed) Vitamin D deficiency Relevant Medications vitamin D3 50,000U OTC cholecalciferol MEDICATIONS: Orders Placed This Encounter Medications ??? DULoxetine (CYMBALTA) 30 MG capsule Sig: Take 1 capsule (30 mg) by mouth daily Dispense: 30 capsule Refill: 0 ??? cholecalciferol (VITAMIN D3) 48221 UNITS capsule Sig: Take 1 capsule (50,000 Units) by mouth once a week Dispense: 12 capsule Refill: 1 - Continue other medications without change. Continue to meet with pain management and physical therapy. Discussed possible side effects of anti-depressant medications. Also discussed time to efficacy of about 6-8 weeks as well as expected duration of treatment. Follow-up one month, sooner prn. Mic Hester PA-C [facility] Physical Exam documented in this encounter Nursing Notes Saniya Goetz MA - 01/01/2015 11:27 AM CDT Chief Complaint Patient presents with ??? Recheck Medication ??? Chest Pain Has been having tachycardia, palpitations, chest tightness Initial BP 126/74 mmHg Pulse 92 Temp(Src) 99.1 ??F (37.3 ??C) (Oral) Resp 20 Wt 205 lb (92.987 kg) Estimated body mass index is 32.1 kg/(m^2) as calculated from the following: Height as of 11/16/14: 5' 7 (1.702 m). Weight as of this encounter: 205 lb (92.987 kg). BP completed using cuff size: large Saniya Goetz MA documented in this encounter Plan of Treatment Not on filedocumented as of this encounter Procedures Procedure Name Priority Date/Time Associated Diagnosis Comme nts EKG 12-LEAD COMPLETE Routine 01/01/2015 12:15 Palpitations Res ults for this W/READ - CLINICS PM CDT procedure a re in the results section. VITAMIN D DEFICIENCY Routine 01/01/2015 11:57 Muscle stiffness Results for this SCREENING AM CDT procedure are i n the results section. TSH WITH FREE T4 Routine 01/01/2015 11:57 Palpitations Results for this REFLEX AM CDT procedure are i n the results section. PARATHYROID HORMONE Routine 01/01/2015 11:57 Muscle stif fness Results for this INTACT AM CDT Palpitations procedure are i n the results section. BASIC METABOLIC Routine 01/01/2015 11:57 Muscle stiffnes s Results for this PANEL AM CDT Palpitations procedure are i n the results section. documented in this encounter Results EKG 12-lead complete w/read - Clinics (01/01/2015 12:15 PM CDT) Narrative This result has an attachment that is no t available. Mic Hester PA-C ECG ORDERABLES (ABNORMAL) Basic metabolic panel (01/01/2015 11:57 AM CDT) [facility] Method Time Signature Sodium 140 133 - 144 [place] mmol/L [facility] Potassium 3.6 3.4 - 5.3 [place] mmol/L [facility] Chloride 106 94 - 109 [place] mmol/L [facility] Carbon Dioxide 27 20 - 32 [place] mmol/L [facility] Anion Gap 7 3 - 14 [place] mmol/L [facility] Glucose 100 (H) 70 - 99 [place] mg/dL [facility] Urea Nitrogen 16 7 - 30 [place] mg/dL [facility] Creatinine 1.07 0.66 - [place] 1.25 mg/dL [facility] GFR Estimate 81 >60 [place] mL/min/1.7 CLINICS m2 [facility] Comment: Non GFR Calc GFR Estimate If >90 >60 mL/min/1.7m2 [facility] Black GFR Calc BLOO [facility] Calcium 8.7 8.5 - 10.1 mg/dL [place] CL[facility] ICS [facility] Specimen Anatomical Collection Method Collection Time Receive d Time (Source) Location / / Volume Laterality Blood specimen 01/01/2015 11:57 5 (specimen) AM CDT 11:58 AM CDT Mic Hester PA-C LAB - BLOOD ORDERABLES Performing Organization Address City/State/ZIP Code Phon e Number [facility] [address] [place] [address] Parathormone intact (01/01/2015 11:57 AM CDT) P athologist Signature Parathyroid 49 12 - 72 [facility] Hormone Intact pg/mL [facility] Specimen Anatomical Collection Method Collection Time Receive d Time (Source) Location / / Volume Laterality Blood specimen 01/01/2015 11:57 5 (specimen) AM CDT 11:58 AM CDT Mic Hester PA-C LAB - BLOOD ORDERABLES Performing Organization Address City/State/ZIP Code Phon e Number [facility] [address] [place] [address] [facility] (ABNORMAL) Vitamin D Deficiency (01/01/2015 11:57 AM CDT) P athologist Signature Vitamin D 25 (L) 30 - 75 [facility] Deficiency ug/L [facility] Comment: Season, race, dietary intake, and treatm ent affect the concentration of 37-yxqmfaj-Anqrsyj D. Values may decrea se during winter months and increase during summer months. Values less than 30 ug/L may indicate Vitamin D deficiency. Vitamin D determiniation is routinely p erformed by an immunoassay specific for 25 hydroxyvitamin D3. ??If an individua l is on vitamin D2 (ergocalciferol) supplementation, please specify 25 [place] v itamin D2 and D3 level determination by LCMSMS test VITD23. Specimen Anatomical Collection Method Collection Time Receive d Time (Source) Location / / Volume Laterality Blood specimen 01/01/2015 11:57 5 (specimen) AM CDT 11:58 AM CDT Mic Hester PA-C LAB - BLOOD ORDERABLES Performing Organization Address City/State/ZIP Code Phon e Number [facility] [address] [place] [address] [facility] TSH with free T4 reflex (01/01/2015 11:57 AM CDT) athologist Signature TSH 2.70 0.40 - 4.00 [facility] mU/L [facility] Specimen Anatomical Collection Method Collection Time Receive d Time (Source) Location / / Volume Laterality Blood specimen 01/01/2015 11:57 5 (specimen) AM CDT 11:58 AM CDT Mic Hester PA-C LAB - BLOOD ORDERABLES Performing Organization Address City/State/ZIP Code Phon e Number [facility] [address] [place] [address] documented in this encounter Visit Diagnoses Diagnosis Polymyalgia (H) - Primary Polymyalgia rheumatica Muscle stiffness Unspecified disorder of muscle, ligament , and fascia Palpitations Vitamin D deficiency Unspecified vitamin D deficiency documented in this encounter Care Teams Mortgage Assistant Relationship Specialty Start Date End Date Carlos Chapman MD PCP - General Family Practice 02/06/14 04/29/19 documented as of this encounter
--- OUTSIDE RECORDS SUMMARY | 2022-03-31 16:59 | XMS_ITS | Encounter Summary ---
:1985 Author Organization [place] Address [address] [place] [address]. [place] [address] Care Team Providers Name Role Phone Carlos Chapman MD Primary Care Provider [phone] Reason for Referral Rehab Therapy Integrated Services - Closed Specialty Diagnoses / Procedures Referred By Contact Refer red To Contact Diagnoses Neuropathy Fatigue [facility] [address] [place], [place] [address] Phone: Fax: Referral ID Status Reason Start Date Expiration Date Visits V isits Requested Authorized [facility]- PT/OT Closed 12/03/2014 01/28/[phone] ([id number]) Reason for Visit Reason Onset Date Comments Referral 11/30/2014 order clarification Encounter Details Date Type Department Care Team Description 11/30/2014 Telephone [facility] Pain Bettina Bejarano, Referral (order Management Center DO clarification) [address] [facility] PAIN [place] [address] [place], [place] [address] [address] [place] [address] [phone] Social History Tobacco Use Types Packs/Day Years Used Date Smoking Tobacco: Never Smokeless Tobacco: Never Alcohol Use Standard Drinks/Week Comments Yes 0 (1 standard drink = 0.6 oz pure alcoho l) occ Sex Assigned at Date Recorded Not on file documented as of this encounter Miscellaneous Notes Telephone Encounter - Kacie Kimball, RN - 12/03/2014 10:09 AM CDT Called [facility] back to inform it should just be PT and to cancel the OT appt that pt is scheduled for. Placed new order for PT only for cancer rehab. GIULIA Matute, RN- [employer] [facility] [place] [facility] [place] Telephone Encounter - Bettina Bejarano DO - 12/02/2014 8:31 PM CDT Just PT. I also want to clarify that this order is for PT for a patient who has been in remission for many years. The patient has fatigue, weakness, pain, and decline in function related to history of cancer and chemotherapy at age 13. Telephone Encounter - Kacie Kimball RN - 11/30/2014 2:07 PM CDT [facility] called and they received the PT/OT order for cancer rehab for pt. PT is booked outuntil end of . They have scheduled pt for Wednesday for OT. Order needs to be changed to separateorders for OT and PT for insurance reasons. Will prep 2 separate orders for PT and OT for Dr. Bejarano to review and sign. Rehab services is wanting to clarify if Dr. Bejarano wants both PT and OT. Told them I would ask Dr. Bejarano to review and I would call them back on Wednesday. (tel [phone]) GIULIA Matute, RN- [employer] [place] [facility] documented in this encounter Plan of Treatment Scheduled Referrals Name Type Priority Associated Diagnoses Order S chedule PHYSICAL THERAPY REFERRAL Referral Routine Neurop athy Ordered: 12/03/2014 Fatigue documented as of this encounter Visit Diagnoses Diagnosis Neuropathy - Primary Mononeuritis of unspecified site Fatigue Other malaise and fatigue documented in this encounter Care Teams Cod Clerk Relationship Specialty Start Date End Date Carlos Chapman MD PCP - General Family Practice 02/06/14 04/29/19 documented as of this encounter
--- OUTSIDE RECORDS SUMMARY | 2022-03-31 16:59 | XMS_ITS | Encounter Summary ---
:1985 Author Organization [facility] Address [address] [place] [address] Care Team Providers Name Role Phone Carlos Chapman MD Primary Care Provider [phone] Reason for Referral Rehab Therapy Physical Therapy - Closed Specialty Diagnoses / Procedures Referred By Contact Refer red To Contact Diagnoses Fatigue Neuropathy Bettina Bejarano DO [facility] [address] [place] [address] Referral ID Status Reason Start Date Expiration Date Visits Requ ested Visits Authorized [id number] Closed 11/30/2014 11/30/2015 1 1 AM Physical Therapy - Closed Specialty Diagnoses / Procedures Referred By Contact Refer red To Contact Diagnoses Neuropathy Fatigue Bettina Bejarano DO [employer] [facility] MED [address] [place] [address] [place] [address] Phone: [phone] Referral ID Status Reason Start Date Expiration Date Visits Requ ested Visits Authorized [id number] Closed 11/30/2014 11/30/2015 1 1 Reason for Visit Reason Comments Pain New pt evaluation for chroni c body pain Encounter Details Date Type Department Care Team Description 11/30/2014 Office Visit [facility] Pain Bejarano, Bettina Josette, Neuropathy (Primary Dx); Management Moe herrera DO Fatigue [address] [facility] [address] [place] [address] [phone] [place] [address] Social History Tobacco Use Types Packs/Day Years Used Date Smoking Tobacco: Never Smokeless Tobacco: Never Alcohol Use Standard Drinks/Week Comments Yes 0 (1 standard drink = 0.6 oz pure alcoho l) occ Sex Assigned at Date Recorded Not on file documented as of this encounter Last Filed Vital Signs Vital Sign Reading Time Taken Comments Blood Pressure 122/83 11/30/2014 8:07 AM CDT Pulse 86 11/30/2014 8:07 AM CDT Temperature - - Respiratory Rate - - Oxygen Saturation 97% 11/30/2014 8:07 AM CDT Inhaled Oxygen Concentration - - Weight 93 kg (205 lb) 11/30/2014 8:07 AM CDT Height - - Body Mass Index 32.11 11/16/2014 9:50 PM CDT documented in this encounter Patient Instructions Patient InstructionsBettina Bejarano DO - 11/30/2014 8:53 AM CDT 1. Schedule acupuncture. 2. Schedule physical therapy with rehab services for cancer rehabilitation. 3. Taper off the baclofen. You are currently taking 15 mg (1-1/2 tabs) three times a day. Decrease to 10 mg (1 tab) three times a day for 1 week, then decrease to 5 mg (1/2 tab) three times a day for 1week, then discontinue. 4. You can double the gabapentin if you choose. You are currently taking 300 mg three times a day. Increase to 300 mg - 300 mg - 600 mg for 1 week, then increase to 600 mg - 300 mg - 600 mg for 1 week,then increase to 600 mg three times a day. 5. Follow up with Dr. Bejarano in 1 month. We will discuss who is a medical marijuana beauty culturist and coordinate getting you scheduled with that person. 6. Call [facility] at tel [phone] (subsidized) Nurse line number: [phone]. Call this number with any questions or concerns. You can leave a message day or night but we will only address calls Wednesday through from 8 am to 4pm and on Fridays from 8 to 12:00 during clinic hours. Please leave a detailed message. We usually get back to youwithin 24 hours depending on the issue/request. You may call the nurse line any day and the nurses will take the message. They will do their best totake care of your needs and will let you know if the doctor needs to review it. If you have questions about appointments, please call the main clinic number at [phone]. We believe regular attendance is lui to [...] cancel all of your future appointments at [facility]. ??? At that point, you will not be able to resume services unless approved by your care team ? documented in this encounter Progress Notes Bettina Bejarano DO - 11/30/2014 8:18 AM CDT Images from the original note were not included. [facility] Consultation Date of visit: 11/30/2014 Primary Care Provider: Dr. Carlos Chapman Consulting Physician: Dr. 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 The patient reports pain started gradually with chemotherapy. He has been in remission since 1998. Has declined significantly over the last year. Prior he was working out with the [employer]. In the fall of 2013, he declined, and was unable to walk at times, had to go home early from work. He has gained weight. Tried doing restorative yoga, but just couldn't do it. He went to the hospital a couple days and was told he was dehydrated. Fatigue is just as big of an issue as the all- over pain. Sleeping well, 8 hours. Does not feel depressed, but does feel frustrated. Found information on [employer], which provided him with relief knowing that the fatigue and pain are common after cancer. Pain location: all over, hands and are ankles are the most troublesome Quality and timing of pain: aching, burning, shooting, throbbing, sharp, stabbing, tiring, exhausing, penetrating, tender, unbearable, worse and at night Pain rating: intensity ranges from 6/10 to 10/10, and Averages 6/10 on a 0-10 scale. Aggravating factors include: everything Relieving factors include: rest, meds Denies red flags including: bowel or bladder symptoms, fever, chills, saddle anesthesia, profound motor loss, history of immune compromise, weight loss. Current pain treatments include: Baclofen 15 mg tid (started a few months ago), gabapentin 300 mg tid (started a few months ago), ibuprofen 200 mg q4h prn (couple times a day) Previous pain treatments included: Ronn Hinkle has not been seen at a pain clinic in the past. Medications: acetaminophen (Tylenol), opioids - too sedated PT: no Acupuncture: no wound care rn: tried it -helped TENs Unit: no Injections: lumbar epidural steroid injection at [facility] many years ago -helped for a short while Surgery: left testicle and spine tumor removed in 1998 Diagnostic Tests: Cervical MRI completed on 02/13/05 showed: CONCLUSION: Normal MRI of the cervical spine. Lumbar CT completed on 02/18/09 showed: No disc herniation or disc space narrowing Mild right facet arthropathy at L5-S1 with no foraminal stenosis or nerve root impingement. No osteolytic or destructive bone lesion. No retoperitoneal lymphadenopathy and no paraspinous soft tissue mass. Review of [place] Prescription Monitoring Program (CREDIT CONTROL OFFICER): Today I have also reviewed the patient's history of controlled substance use, as provided by [place] licensed pharmacies and prescriber dispensers. No report. Review of Pain Questionnaire: Please see the [facility] [place] health questionnaire, which the patient completed and reviewed with me in detail. Review of Electronic Chart: Today I have also reviewed available medical information in the patient's medical record at [facility] ([facility]), including relevant provider notes, laboratory work, and imaging. Past Medical History: Past Medical History Diagnosis Date ??? Testicular cancer 1998 Past Surgical History: Past Surgical History Procedure Laterality Date ??? Orchiectomy inguinal 1998 L testicular ca, with spinal met Medications: Current Outpatient Prescriptions Medication Sig Dispense Refill ??? gabapentin (NEURONTIN) 300 MG capsule Take 1 capsule (300 mg) by mouth 3 times daily 180 capsule1 ??? baclofen (LIORESAL) 10 MG tablet Take 1.5 tablets (15 mg) by mouth 3 times daily 135 tablet 5 ??? ibuprofen 200 MG capsule Take 200 mg by mouth every 4 hours as needed for fever 120 capsule ??? Cholecalciferol (VITAMIN D3 PO) Take by mouth daily Allergies: No Known Allergies Social History: History Social History ??? Marital Status: Single Spouse Name: N/A Number of Children: N/A ??? Years of Education: N/A Occupational History ??? Not on file. Social History Main Topics ??? Smoking status: Never Smoker ??? Smokeless tobacco: Never Used ??? Alcohol Use: Yes Comment: occ ??? Drug Use: No ??? Sexual Activity: Partners: Female Other Topics Concern ??? Parent/Sibling W/ Cabg, Mi Or Angioplasty Before 65f 55m? No Social History Narrative History of chemical dependency treatment: no. Drinks alcohol a couple beers 3 days/week. Never any illicit drugs. 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 Obesity Mother ??? Obesity Father ??? Neurologic Disorder Maternal Uncle Multiple Sclerosis and brain aneurysm ??? Cancer Maternal Uncle lymphoma ??? C.A.D. Maternal Uncle several with heart disease ??? C.A.D. Maternal Grandfather ID ??? Cancer Paternal Grandfather stomach cancer Review of Systems: General: negative for fever or chills, weight loss Eyes and Head: positive for headache, dizziness, vision changes Ears/Nose/Throat: negative for nose bleeds, hearing loss, sinus infection, earache, and ringing in ears Immune system: negative for immune deficiency, infections Skin: negative for itching, rash Hematologic: negative for anemia, bleeding problems Respiratory: negative for cough, positive for shortness of breath Cardiovascular: negative for leg swelling, high blood pressure, positive for chest pain Gastrointestinal: positive for nausea, diarrhea Endocrine: negative for diabetes, osteoporosis Musculoskeletal: negative except as discussed in the HPI above Urologic: negative for urinary urgency, incontinence Neurologic: negative for seizure, tremor Mental health: negative for depression, anxiety, suicidal thoughts, positive for stress Physical Exam: Filed Vitals: 11/30/14 0807 BP: 122/83 Pulse: 86 Weight: 92.987 kg (205 lb) SpO2: 97% Exam: Constitutional: healthy, alert and no distress Head: normocephalic. Atraumatic. Eyes: no redness or jaundice noted ENT: oropharnx normal. MMM. Neck supple. Cardiovascular: RRR no m/g/r Respiratory: clear Gastrointestinal: soft, non-tender, normoactive bowel sounds : deferred Skin: no suspicious lesions or rashes Psychiatric: mentation appears normal and affect normal/bright Musculoskeletal exam: Gait/Station/Posture: normal reciprocating gait pattern, non-antalgic, stiff with initial steps Cervical spine: normal active range of motion Thoracic spine: Normal Lumbar spine: normal active range of motion Myofascial tenderness: diffuse Straight leg exam: negative Neurologic exam: Motor: 5/5 UE and LE strength able to heel toe walk Reflexes: Biceps: R: 2/4 L: 2/4 Brachioradialis R: 2/4 L: 2/4 Triceps: R: 2/4 L: 2/4 Patella: R: 2/4 L: 2/4 Achilles: R: 2/4 L: 2/4 Other reflexes: Toes downgoing Sensory: (upper and lower extremities): Light touch: decreased in a patchy distribution below the knee bilaterally Allodynia: absent Hyperalgesia: absent Assessment: 1. Chronic widespread pain and overwhelming fatigue related to history of chemotherapy for testicular cancer at age of 13. 2. Peripheral neuropathy 3. Testicular cancer diagnosed at age 13, in remission 4. Impaired functioning Ronn Hinkle is a 29 year old male who presents with the complaints of widespread pain and peripheral neuropathy. Exam shows intact strength, decreased sensation below the knees, diffuse tenderness. Plan: Diagnosis reviewed, treatment option addressed, and risk/benefits discussed. Self-care instructions given. I am recommending a multidisciplinary treatment plan to help this patient better manage his pain. 1. Physical Therapy: rehab services 2. Medication Management: 1. Wean off baclofen. Instructions provided. 2. Taper up gabapentin from 300 mg tid to 600 mg tid. Instructions provided. 3. May be a candidate for medical marijuana. 3. Referrals: acupuncture and adaptive yoga at [facility] 4. Release of information: [facility] where he had cancer treatment 5. Follow up: 1 month. Total time spent was 60 minutes, and more than 50% of face to face time was spent in counseling and/or coordination of care regarding principles of multidisciplinary care, medication management, and treatment options as discussed above. Bettina Bejarano DO [facility] documented in this encounter Nursing Notes Kacie Kimball RN - 11/30/2014 11:33 AM CDT AVS reviewed with pt. Scheduled pt for December 28. GIULIA Matute, RN- Dry Cleaning Manager [facility] documented in this encounter Miscellaneous Notes Addendum Note - Gilda Maharaj CMA - 12/04/2014 9:42 AM CDT Addended by: GILDA MAHARAJ on: 12/04/2014 09:42 AM Modules accepted: [employer] documented in this encounter Plan of Treatment Scheduled Referrals Name Type Priority Associated Diagnoses Order S dago [facility] PT, HAND, AND Referral Routine Neuropathy Ordered: 11/30/2014 CHIROPRACTIC REFERRAL Fatigue PHYSICAL THERAPY REFERRAL Referral Routine Fatigu e Ordered: 11/30/2014 Neuropathy documented as of this encounter Visit Diagnoses Diagnosis Neuropathy - Primary Mononeuritis of unspecified site Fatigue Other malaise and fatigue documented in this encounter Care Teams Building Construction Professor Relationship Specialty Start Date End Date Carlos Chapman MD PCP - General Family Practice 02/06/14 04/29/19 documented as of this encounter
--- OUTSIDE RECORDS SUMMARY | 2022-03-31 16:59 | XMS_ITS | Encounter Summary ---
:1985 Author Organization [facility] Address [address] [place] [address] Care Team Providers Name Role Phone Carlos Chapman MD Primary Care Provider Reason for Visit Reason Comments Pain Encounter Details Date Type Department Care Team Description 12/05/2014 Office Visit [facility] Pain Bettina Bejarano, Cisplatin induced neuropathy (H) (Primary Dx); Management Moe herrera DO Neuropathy; [address] [facility] PAIN Fatigue; [address] CL[place] [address] [phone] [place] [address] Social History Tobacco Use Types Packs/Day Years Used Date Smoking Tobacco: Never Smokeless Tobacco: Never Alcohol Use Standard Drinks/Week Comments Yes 0 (1 standard drink = 0.6 oz pure alcoho l) occ Sex Assigned at Date Recorded Not on file documented as of this encounter Last Filed Vital Signs Vital Sign Reading Time Taken Comments Blood Pressure 132/90 12/05/2014 9:34 AM CDT Pulse 78 12/05/2014 9:34 AM CDT Temperature - - Respiratory Rate 16 12/05/2014 9:34 AM CDT Oxygen Saturation - - Inhaled Oxygen Concentration - - Weight 93 kg (205 lb) 12/05/2014 9:34 AM CDT Height - - Body Mass Index 32.11 11/16/2014 9:50 PM CDT documented in this encounter Progress Notes Bettina Bejarano DO - 12/05/2014 10:11 AM CDT Images from the original note were not included. [facility] Date of visit: 12/05/2014 Chief complaint: Chief Complaint Patient presents with ??? Pain Ronn Hinkle is a 29 year old male who presents with the complaints of widespread pain and peripheral neuropathy. Exam shows intact strength, decreased sensation below the knees, diffuse tenderness. Interval history: Ronn Hinkle is a 29 year old male last seen by me on 11/30/14. Recommendations/plan at the last visit included: 1. Physical Therapy: rehab services 2. Medication Management: 1. Wean off baclofen. Instructions provided. 2. Taper up gabapentin from 300 mg tid to 600 mg tid. Instructions provided. 3. May be a candidate for medical marijuana. 3. Referrals: acupuncture and adaptive yoga at [facility] 4. Release of information: [facility] where he had cancer treatment 5. Follow up: 1 month. Since his last visit, Ronn Hinkle reports: He has checked with his insurance regarding acupuncture and found out that 40 units are covered. He is a good candidate for acupuncture given his history of cisplatin-induced neuropathy, polymyalgia, fatigue, and weakness. He requested disability paperwork be completed, which was worked on today. Pain scores: Pain intensity on average is 6 on a scale of 0-10. Current pain treatments: Baclofen (wean), gabapentin. Past pain treatments: Medications: acetaminophen, opioids - too sedated PT: no Acupuncture: no child caregiver private home: tried it -helped TENs Unit: no Injections: lumbar epidural steroid injection at [facility] many years ago -helped for a [...] and is positive for: headaches, dizziness, vision changes Any bowel or bladder problems: no Mood: stable, stress Physical Exam: Blood pressure 132/90, pulse 78, resp. rate 16, weight 92.987 kg (205 lb). General: no acute distress, pleasant, well-groomed Gait: [...] lumbar facet arthropathy. Plan: 1. Physical Therapy: Scheduled for today with Kacie Santiago 2. Medication Management: SALES EXPERT reviewed and is appropriate. 1. Continue baclofen taper. 2. Continue gabapentin titration. 3. Consider medical marijuana. 3. Referrals: acupuncture and adaptive yoga at [facility] 4. Follow up: with Dr. Bejarano -scheduled on 12/28/14. Total time spent was 30 minutes, and more than 50% of face to face time was spent in counseling and/or coordination of care regarding the above assessment and plan and paperwork for disability. Bettina Bejarano DO [facility] documented in this encounter Nursing Notes Laura Bowman, RN - 12/05/2014 9:39 AM CDT Ronn Hinkle presents for follow up for pain all over. Pt states that he is here to work with Dr. Bejarano to fill out his paperwork for work. Initial BP 132/90 mmHg Pulse 78 Resp 16 Wt 92.987 kg (205 lb) Estimated body mass index is 32.1 kg/(m^2) as calculated from the following: Height as of 11/16/14: 1.702 m (5' 7). Weight as of this encounter: 92.987 kg (205 lb).. 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
--- OUTSIDE RECORDS SUMMARY | 2022-03-31 16:59 | XMS_ITS | Encounter Summary ---
:1985 Author Organization [facility] Address [address] [place] [address] Care Team Providers Name Role Phone Carlos Chapman MD Primary Care Provider [phone] Reason for Visit Reason Onset Date Comments Nurse Advice Line 01/08/2015 questions on a futur e test that he has coming up Encounter Details Date Type Department Care Team Description 01/08/2015 Telephone [facility] Carlos Chapman Nurse Adv ice Line Clinic Anejl Spring MD (questions on a future [address] [facility], [address] [facility] [address] test that he has [address] [place] [address] coming up) [place], [place] [phone] (Wo rk) [phone] [phone] Social History Tobacco Use Types Packs/Day Years Used Date Smoking Tobacco: Never Smokeless Tobacco: Never Alcohol Use Standard Drinks/Week Comments Yes 0 (1 standard drink = 0.6 oz pure alcoho l) occ Sex Assigned at Date Recorded Not on file documented as of this encounter Miscellaneous Notes Telephone Encounter - Margareth Devries RN - 01/08/2015 3:01 PM CDT Left detailed message on voice mail to call clinic back and schedule an OV. Margareth Devries RN Telephone Encounter - Mic Hester PA-C - 01/08/2015 1:25 PM CDT Sounds like he should be seen. What tests is he having done? Mic Telephone Encounter - Margareth Devries RN - 01/08/2015 12:17 PM CDT Spoke with patient. He states that he has been having increasing sob when doing little things such as walking up the stairs. He says that his chest feels tight and has some palpitations with it. He feels like he is wheezing at times. Patient wondering if there is anything we could do to help him. Please advise. Margareth Devries RN Telephone Encounter - Astrid Estrada - 01/08/2015 10:03 AM CDT Patient is requesting to speak with Margareth regarding questions on a test that he has coming up. Please call patient at [phone]. Astrid Estrada Cager Operator documented in this encounter Plan of Treatment Not on filedocumented as of this encounter Visit Diagnoses Not on filedocumented in this encounter Care Teams Third Rail Installer Relationship Specialty Start Date End Date Carlos Chapman MD PCP - General Family Practice 02/06/14 04/29/19 documented as of this encounter
--- OUTSIDE RECORDS SUMMARY | 2022-03-31 16:59 | XMS_ITS | Encounter Summary ---
:1985 Author Organization [facility] Address [address] [facility] [place] [address] Care Team Providers Name Role Phone Carlos Chapman MD Primary Care Provider [phone] Reason for Visit Reason Onset Date Comments Forms 11/30/2014 Encounter Details Date Type Department Care Team Description 11/30/2014 Telephone [facility] Pain Gudelia Bejarano DO Forms Management Center [facility]IC [address] [place] [address] [place] [address] [place], [place] [address] [phone] Social History Tobacco Use Types Packs/Day Years Used Date Smoking Tobacco: Never Smokeless Tobacco: Never Alcohol Use Standard Drinks/Week Comments Yes 0 (1 standard drink = 0.6 oz pure alcoho l) occ Sex Assigned at Date Recorded Not on file documented as of this encounter Miscellaneous Notes Telephone Encounter - Kacie Kimball RN - 12/03/2014 2:47 PM CDT Called pt back and scheduled him for 12-05-[address] Bejarano to go over the paperwork. GIULIA Matute, RN- Senior International Tax Manager [facility] [place] Telephone Encounter - Kacie Kimball RN - 11/30/2014 12:[address] Bejarano is gone for the day. Will ask her to review on Wednesday when back in clinic. Called pt back to inform. GIULIA Matute, RN- Senior International Tax Manager [facility] [place] Telephone Encounter - Nazanin Rain - 11/30/2014 12:08 PM CDT Patient calling back regarding forms that he needs filled out by Dr. Bejarano, he is going to be faxing them over to the [place] location if she is willing to fill them out. He would still like a call back either way. Nazanin [facility] Wellness Coordinator [facility] Telephone Encounter - Kacie Kimball RN - 11/30/2014 11:54 AM CDT Pt called and left VM that he forgot to ask Dr. Bejarano to fill out form from his employer. Pt wondering if he can fax the form to the office. . GIULIA Matute, RN- Senior International Tax Manager [facility] documented in this encounter Plan of Treatment Not on filedocumented as of this encounter Visit Diagnoses Not on filedocumented in this encounter Care Teams Quality Specialist Relationship Specialty Start Date End Date Carlos Chapman MD PCP - General Family Practice 02/06/14 04/29/19 documented as of this encounter
--- OUTSIDE RECORDS SUMMARY | 2022-03-31 16:59 | XMS_ITS | Encounter Summary ---
:1985 Author Organization [place] Address [address] [facility] [place] [address] Care Team Providers Name Role Phone Carlos Chapman MD Primary Care Provider [phone] Reason for Visit Rehab Therapy Integrated Services - Closed Specialty Diagnoses / Procedures Referred By Contact Refer red To Contact Diagnoses Neuropathy Fatigue [facility] [address] [place], [place] [address] Phone: Fax: Referral ID Status Reason Start Date Expiration Date Visits V isits Requested Authorized FR- PT/OT Closed 12/03/2014 01/28/2015 365 365 ([id number]) Encounter Details Date Type Department Care Team Description 12/12/2014 Hospital Encounter [facility] Olivia Bejarano i, DO [facility] [address] [place] [address] Rehabilitation Services Kacie Santiago, PT [address] [place], [place] [address] [place] U[address] [address] Social History Tobacco Use Types [...] on filedocumented in this encounter Care Teams Industrial Real Estate Agent Relationship Specialty Start Date End Date Carlos Chapman MD PCP - General Family Practice 02/06/14 04/29/19 documented as of this encounter
--- OUTSIDE RECORDS SUMMARY | 2022-03-31 16:59 | XMS_ITS | Encounter Summary ---
:1985 Author Organization [place] Address [address] [place] [address] Care Team Providers Name Role Phone Carlos Chapman MD Primary Care Provider [phone] Reason for Visit Rehab Therapy Integrated Services - Closed Specialty Diagnoses / Procedures Referred By Contact Refer red To Contact Diagnoses Neuropathy Fatigue [facility] [address] [place], [place] [address] Phone: Fax: Referral ID Status Reason Start Date Expiration Date Visits V isits Requested Authorized FR- PT/OT Closed 12/03/2014 01/28/2015 365 365 ([id number]) Encounter Details Date Type Department Care Team Description 12/26/2014 Hospital Encounter [facility] Olivia Bejarano i, DO [facility] [address] [place] [address] Rehabilitation Services Kacie Santiago, PT [address] [place], [place] [address] [place] [address] [address] Social History Tobacco Use Types [...] times daily documented as of this encounter Progress Notes Kacie Santiago, PT - 01/21/2015 8:55 AM CDT Images from the original note were not included. [facility] OUTPATIENT PHYSICAL THERAPY PLAN OF TREATMENT FOR OUTPATIENT REHABILITATION Patient's Last Name, First Name, M.I. Date of : 1985 Ronn Hinkle Provider's Name [facility] Onset Date: 12/03/14 - Date of order Start of Care Date: 12/05/14 Type: _X_PT ___OT ___SLP Medical Diagnosis: fatigue, neuropathy, history of testicular cancer PT Diagnosis: Decline in functional activity tolerance and quality of life _ Plan of Treatment: Frequency/Duration: 1 x a week x 90 days Goals: Nathan is gradually progressing to all goals. Goals remain the same as at initial evaluation. He continues to have fatigue and pain- generalized throughout. He is tolerating more exercise at PT sessions. He notes improvements as well. Certification date from 01/19/15 to 04/18/15. Kacie Santiago, PT I CERTIFY THE NEED FOR THESE SERVICES FURNISHED UNDER THIS PLAN OF TREATMENT AND WHILE UNDER MY CARE (Physician co-signature of this document indicates review and certification of the therapy plan). Referring Provider: Dr. Bettina Zhu Associated attestation - Bettina Bejarano DO - 01/21/2015 12:03 PM CDT Physician Attestation I agree with the information in this note. Bettina Bejarano DO documented in this encounter Miscellaneous Notes Addendum Note - Kacie Santiago, PT - 01/21/2015 9:03 AM CDTEncounter addended by: Kacie Santiago, PT on: 01/21/2015 9:03 AM
Documentation filed: Inpatient Document Flowsheet Addendum Note - Kacie Santiago, PT - 01/21/2015 9:02 AM CDTEncounter addended by: Kacie Santiago, PT on: 01/21/2015 9:02 AM
Documentation filed: Clinical Notes, Notes Section documented in this encounter Plan of Treatment Not on filedocumented as of this encounter Visit Diagnoses Not on filedocumented in this encounter Care Teams [employer] Tester Relationship Specialty Start Date End Date Carlos Chapman MD PCP - General Family Practice 02/06/14 04/29/19 documented as of this encounter
--- OUTSIDE RECORDS SUMMARY | 2022-03-31 16:59 | XMS_ITS | Encounter Summary ---
:1985 Author Organization [place] Address [address] [address] Care Team Providers Name Role Phone Carlos Chapman MD Primary Care Provider [phone] Reason for Visit Rehab Therapy Integrated Services - Closed Specialty Diagnoses / Procedures Referred By Contact Refer red To Contact Diagnoses Neuropathy Fatigue [facility] [address] [place], [place] [address] Phone: Fax: Referral ID Status Reason Start Date Expiration Date Visits V isits Requested Authorized FR- PT/OT Closed 12/03/2014 01/28/2015 365 365 ([id number]) Encounter Details Date Type Department Care Team Description 12/07/2014 Hospital Encounter [facility] Olivia Bejarano i, DO [facility] [address] [place] [address] Rehabilitation Services Kacie Santiago, PT [address] [place], [place] [address] [place] [address] [address] Social History Tobacco Use Types [...] on filedocumented in this encounter Care Teams Firm Administrator Relationship Specialty Start Date End Date Carlos Chapman MD PCP - General Family Practice 02/06/14 04/29/19 documented as of this encounter
--- OUTSIDE RECORDS SUMMARY | 2022-03-31 16:59 | XMS_ITS | Encounter Summary ---
:1985 Author Organization [place] Address [address] [place] [address] Care Team Providers Name Role Phone Carlos Chapman MD Primary Care Provider [phone] Reason for Visit Rehab Therapy Integrated Services - Closed Specialty Diagnoses / Procedures Referred By Contact Refer red To Contact Diagnoses Neuropathy Fatigue [facility] [address] [place], [place] [address] Phone: Fax: Referral ID Status Reason Start Date Expiration Date Visits V isits Requested Authorized [facility]H- PT/OT Closed 12/03/2014 01/28/2015 365 365 ([id number]) Encounter Details Date Type Department Care Team Description 12/31/2014 Hospital Encounter [facility] Olivia Bejarano i, DO [facility] [address] [place], [place] [address] Rehabilitation Services Francheska Singh, OT [facility] [address] [place] [address] [facility] [address] [place] [address] Social History Tobacco Use Types [...] encounter Progress Notes Francheska Singh, OT - 01/03/2015 3:44 PM CDT Images from the original note were not included. [facility] OUTPATIENT OCCUPATIONAL THERAPY EVALUATION PLAN OF TREATMENT FOR OUTPATIENT REHABILITATION (COMPLETE FOR INITIAL CLAIMS ONLY) Patient's Last Name, First Name, M.I. Date of : 1985 Ronn Hinkle Provider's Name [facility] Onset Date: 12/10/14 (order date) Start of Care Date: 12/31/14 Type: ___PT _X_OT ___SLP Medical Diagnosis: h/o cancer, fatigue, decreased tolerance for ADLs OT Diagnosis: decreased ADL/IADL independence Visits from SOC: 1 _ Plan of Treatment/Functional Goals: ADL training, IADL training, Coordination training, Neuromuscular re-education, Self care/Home management, Strengthening, Therapeutic activities, Visual perception Goals Goal Identifier: memory Goal Description: Patient will demonstrate improved memory skills by completing short-term memory tasks in occupational therapy with 85-90% accuracy using compensatory strategies for increased safety and independence with ADL/IADLS (remembering to take medications, turn off the stove when done, etc.). Target Date: 02/25/15 Goal Identifier: visual adaptations Goal Description: Patient will verbalize 2-3 strategies to compensate for visual sensitivity for increased independence during ADL/IADLs (computer adaptations, work tasks, etc.). Target Date: 02/25/15 Goal Identifier: EC/WS Goal Description: Patient to verbalize 3 strategies for energy conservation/work simplification and fatigue management for improved independence with ADL/IADLs at home and in the community, and increase FACIT - Fatigue score by 4 points for increased activity level. Target Date: 02/25/15 Goal Identifier: hand strengthening HEP Goal Description: Patient to demonstrate improved B supervisor liquefaction strength to 5# and B pinch strength by 2# for increased ADL/IADL independence (hanging onto objects for hygienes, home and work tasks, etc.). Target Date: 02/25/15 Goal Identifier: adaptive aids/techniques for ADL/IADL Goal Description: Patient to verbalize understanding of and demonstrate use of 2-3 new pieces of adaptive equipment and/or adapted techniques to increase his independence and safety with ADL/IADLs (handwriting, feeding self, dressing, etc.) while dealing with hand pain and weakness. Target Date: 02/25/15 Therapy Frequency: 1x/week Predicted Duration of Therapy Intervention (days/wks): 8 weeks Francheska Singh, OTR/L, OT I CERTIFY THE NEED FOR THESE SERVICES FURNISHED UNDER THIS PLAN OF TREATMENT AND WHILE UNDER MY CARE (Physician co-signature of this document indicates review and certification of the therapy plan). , Certification date from: 12/31/14, Certification date to: 02/25/15 Referring Physician: Bettina Zhu D.O. Initial Assessment See Epic Evaluation Start Of Care Date: 12/31/14 Associated attestation - Bettina Bejarano DO - 01/04/2015 11:01 AM CDT Physician Attestation I agree with the information in this note. DO Samantha Fournier Amy J, OT - 01/03/2015 3:43 PM CDT 12/31/14 1300 Quick Adds Type of Visit Initial Outpatient Occupational Therapy Evaluation General Information Start Of Care Date 12/31/14 Referring Physician Bettina Zhu D.O. Orders Evaluate and treat as indicated Other Orders Cancer Rehab Orders Date 12/10/14 Medical Diagnosis h/o cancer, fatigue, decreased tolerance for ADLs Onset of Illness/Injury or Date of Surgery 12/10/14 (order date) Precautions/Limitations No known precautions/limitations Surgical/Medical History Reviewed Yes Pertinent History of Current Problem The following per physical therapy evaluation: Patient reportsfatigue ever since dx 1998. Patient diagnosed with L testicular cancer with spinal mets in 1998. He reports he had Chemo therapy to shrink the tumors and then surgery to remove. States that he had chemo for about a year. Reports that initially he was able to complete the chemo at home and sometimes had to have it completed in the hospital. No radiation. Has started gabopentin in the last couple of months without much change in his neuropathy pain. He reports that he has generalized pain with whatever he does. Pt states that he is cancer free at this time - no re-occurrence. Patient stated that he has been independent and pushes himself to complete activities but pays for it later with pain. Comments/Observations During today's session, patient reports he has flare-ups (usually in fall) - has gotten worse over the years. Reports he is hot a lot. Patient reports he recently saw Dr. Darci rocha recommended a new pain medication (Lyrica?? - doesn't think that's what it is, but either way, has not filled it yet). That's what got me into this trouble (meds, chemo, etc.). Alcohol is the only thing that works - I'm not an alcoholic, just 1-2 times a month a couple shots of 100 proof is what takes his pain away. Reports he wants to try weed/marijuana - he'd like to try it (even though hasnever done it). He reports he's a natural romeo - uses essential oils, eats healthy. He's taking gabepentin now - doubled it recently per MD recommendations and having increased side effects - heart would beat fast, skip a beat or 2, anxiety, so he has decreased amount he is taking. 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 and stopped working last Feb. as unable to do the job; not yet on disability yet - will be applying soon. 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 Adelaienjavier sets up his medications (he forgot to take meds at times) and helps with finances (he has a hard time writing). Patient drives, but reports some days he chooses not to drive (feels disoriented, fatigue, pain, etc.). Patient/family Goals Statement Would like to be able to function better and complete daily tasks. 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 Would like to have no pain. Pain Patient Currently in Pain Yes Pain Location neck, shoulders, hands, arms, hips, ankles and feet Pain Rating 5 Pain Comments In general does better when not doing very physcial work, repetitive work. Fall Risk Screen Fall screen completed by PT Have you fallen 2 or more times in the last year? Yes Have you fallen and had an injury in the past year? No Is the patient a fall risk? Yes Comments patient falls at times per his report System Outcome Measures FACIT Fatigue Subscale (score out of 52). The higher the score, the better the QOL. 6 Cognitive Status Examination Orientation Orientation to person, place and time Level of Consciousness Alert Follows Commands and Answers Questions 100% of the time;Able to follow single- step instructions Personal Safety and Judgment Impaired (3/4 qeustions correct) Memory Comments Patient reports it takes longer to recall things, forgetful (but not always sure what he forgot). Uses a monthly calendar. Cognitive Comment The Ketchum Cognitive Assessment (MoCA) was designed as a rapid screening instrument for mild cognitive dysfunction. It assesses different cognitive domains: attention and concentration, executive functions, memory, language, visuoconstructional skills, conceptual thinking, calculations, and orientation. Total possible score is 30 points; a score of 26 or above is considered normal. Patient scored 20 today with errors in all areas except for naming and orientation. Visual Perception Visual Perception Comments No glasses. gets a lot of eye tweaking, blurriness and vision is kind ofjiggly - comes and goes. Patient reports his eyes are overly sensitive - bright lights hurts his eyes. Likes to sit in the dark or wear glasses - lights often off at home. Scanning a moving object - patient had slight difficulty with this (hard to keep focus.) Visual gramajo appear WFLs. Sensation Sensation Comments Sometimes hands are numb and patient feels like he has diminished sensation. compression feels good (girlfriend wraps up with angus bandage at times, but sometimes he isn't able to tolerate it for too long). Wearing a neoprene thumb brace (switches hands); cold generally feels better t lópez heat Range of Motion (ROM) ROM Comments hands - WFLs except for very limited AROM DIP joints (PROM is WFLS, but AROM nearly no active movement); please refer to P.TDeandre lee for all other per cancer rehab program Strength Strength Comments see P.T. for other areas except for hand (below) Hand Strength Left Hand Park Guard (pounds) 17 pounds (stopped when started feeling pain (1 on pain scale)) Right Hand Park Guard (pounds) 15 pounds (stopped when started feeling pain (1 on pain scale)) Left Lateral Pinch (pounds) 9 pounds (no pain, but that's all I had) Right Lateral Pinch (pounds) 12 pounds (went to 2 pain level before stopping) Left Three Point Pinch (pounds) 6 pounds (no pain, but that's all I had) Right Three Point Pinch (pounds) 6 pounds (went to 2 pain level before stopping) Coordination Left Hand, Nine Hole Peg Test (seconds) 28 Right Hand, Nine Hole Peg Test (seconds) 29 Functional Mobility Functional Mobility Comments Independent per observation today Bathing Bathing Comments reports a shower chair would be good for him due to occasional falls; bathes without assistance Upper Body Dressing Upper Body Dressing Comments modified independent - occasional difficulty with fasteners Lower Body Dressing Lower Body Dressing Comments modified independent - occasional difficulty with fasteners Toileting Toileting Comments modified independent - occasional difficulty with fasteners Grooming Grooming Comments modified independent Eating/Self-Feeding Level of [place]: Eating independent Activity Tolerance Activity Tolerance low - see FACIT above Planned Therapy Interventions Planned Therapy Interventions ADL training;IADL training;Coordination training;Neuromuscular re-education;Self care/Home management;Strengthening;Therapeutic activities;Visual perception Adult OT Eval Goals OT Eval Goals (Adult) 1;2;3;4;5 OT Goal 1 Goal Identifier memory Goal Description Patient will demonstrate improved memory skills by completing short-term memory tasks in occupational therapy with 85-90% accuracy using compensatory strategies for increased safety and independence with ADL/IADLS (remembering to take medications, turn off the stove when done, etc.). Target Date 02/25/15 OT Goal 2 Goal Identifier visual adaptations Goal Description Patient will verbalize 2-3 strategies to compensate for visual sensitivity for increased independence during ADL/IADLs (computer adaptations, work tasks, etc.). Target Date 02/25/15 OT Goal 3 Goal Identifier EC/WS Goal Description Patient to verbalize 3 strategies for energy conservation/work simplification and fatigue management for improved independence with ADL/IADLs at home and in the community, and increaseFACIT - Fatigue score by 4 points for increased activity level. Target Date 02/25/15 OT Goal 4 Goal Identifier hand strengthening HEP Goal Description Patient to demonstrate improved B supervisor liquefaction strength to 5# and B pinch strength by 2# for increased ADL/IADL independence (hanging onto objects for hygienes, home and work tasks, etc.). Target Date 02/25/15 OT Goal 5 Goal Identifier adaptive aids/techniques for ADL/IADL Goal Description Patient to verbalize understanding of and demonstrate use of 2- 3 new pieces of adaptive equipment and/or adapted techniques to increase his independence and safety with ADL/IADLs (handwriting, feeding self, dressing, etc.) while dealing with hand pain and weakness. Target Date 02/25/15 Clinical Impression Criteria for Skilled Therapeutic Interventions Met Yes, treatment indicated OT Diagnosis decreased ADL/IADL independence Influenced by the following impairments decreased hand function, pain, fatigue, decreased cognition,decreased visual perceptual skills Rehab Potential good, to achieve stated therapy goals Rehab potential affected by pain, fatigue, decreased cognition Therapy Frequency 1x/week Predicted Duration of Therapy Intervention (days/wks) 8 weeks Risks and Benefits of Treatment have been explained. Yes Patient, Family & other staff in agreement with plan of care Yes Education Assessment Barriers To Learning Visual;Physical;Cognitive Preferred Learning Style Listening;Reading;Demonstration;Pictures/video Total Evaluation Time Total Evaluation Time 50 documented in this encounter Miscellaneous Notes Addendum Note - Francheska Singh OT - 01/03/2015 3:46 PM CDTEncounter addended by: Francheska Singh OT on: 01/03/2015 3:46 PM
Documentation filed: Inpatient Document Flowsheet Addendum Note - Francheska Singh OT - 01/03/2015 3:46 PM CDTEncounter addended by: Francheska Singh OT on: 01/03/2015 3:46 PM
Documentation filed: Clinical Notes, Notes Section, Inpatient Document Flowsheet documented in this encounter Plan of Treatment Not on filedocumented as of this encounter Visit Diagnoses Not on filedocumented in this encounter Care Teams [employer] Leadership Relationship Specialty Start Date End Date Carlos Chapman MD PCP - General Family Practice 02/06/14 04/29/19 documented as of this encounter
--- OUTSIDE RECORDS SUMMARY | 2022-03-31 16:59 | XMS_ITS | Encounter Summary ---
:1985 Author Organization [facility] Address [address] [place] [address] Care Team Providers Name Role Phone Carlos Chapman MD Primary Care Provider Reason for Referral Pain Consult - Closed Specialty Diagnoses / Procedures Referred By Contact Refer red To Contact Diagnoses Muscle stiffness Polymyalgia (H) Cisplatin induced neuropathy (H) Mic Hester M [facility] GABRIELA Jaquez PA-C [facility] [address] [facility] [address] [address] [place] [address] [address] [place] [address] Phone: Fax: Referral ID Status Reason Start Date Expiration Date Visits Requ ested Visits Authorized [id number] Closed 11/22/2014 05/21/2015 1 1 Reason for Visit Reason Comments ER F/U F/U ER(11/16/14) visit candy estrada bodyaches. Encounter Details Date Type Department Care Team Description 11/22/2014 Office Visit [facility] Mic Hester Muscle stiffness (Primary Dx); [facility] DANIKA Gramajo Polymyalgia (H); [place] [address] [address] Cisplatin induced neuropathy (H) [facility], [address] [place] [address] [place], [place] [phone] (Wo rk) [address] [phone] Social History Tobacco Use Types Packs/Day Years Used Date Smoking Tobacco: Never Smokeless Tobacco: Never Alcohol Use Standard Drinks/Week Comments Yes 0 (1 standard drink = 0.6 oz pure alcoho l) occ Sex Assigned at Date Recorded Not on file documented as of this encounter Last Filed Vital Signs Vital Sign Reading Time Taken Comments Blood Pressure 124/88 11/22/2014 7:51 AM CDT Pulse 79 11/22/2014 7:51 AM CDT Temperature 36.9 ??C (98.4 ??F) 11/22/2014 7:51 AM CDT Respiratory Rate 20 11/22/2014 7:51 AM CDT Oxygen Saturation 96% 11/22/2014 7:51 AM CDT Inhaled Oxygen Concentration - - Weight 95.7 kg (210 lb 14.4 oz) 11/22/2014 7:51 AM CDT Height - - Body Mass Index 33.03 11/16/2014 9:50 PM CDT documented in this encounter Progress Notes Mic Hester PA-C - 11/22/2014 7:55 AM CDT HPI SUBJECTIVE: Ronn Hinkle is a 29 year old male who presents to clinic today for the following health issues: ED/UC Followup: Facility: [facility] Date of visit: 11/16/14 Reason for visit: generalized body pains on right side of body Current Status: generalized body pains now on left side of body. Sharp pains Percocet helps take the edge off. Pain is now on the left. Difficult for him to work. Does not have insurance right now. Trying to get [place] or [place]. Since 1998 and cancer diagnosis/chemo he has had these problems. Daily muscle pain, aches, neuropathy. Some days cannot get out of bed. Sometimes cannot sleep- feels some days like cannot breathe due to pain. Pain is different everyday. Severely limiting daily activities. Not working right now, cannot drive.Feels that he can barely get himself dressed some days. Problem list and histories reviewed & adjusted, as indicated. Additional history: as documented Problem list, Medication list, Allergies, and Medical/Social/Surgical histories reviewed in EPIC andupdated as appropriate. ROS: Constitutional, HEENT, cardiovascular, pulmonary, gi and gu systems are negative, except as otherwise noted. OBJECTIVE: BP 124/88 mmHg Pulse 79 Temp(Src) 98.4 ??F (36.9 ??C) (Oral) Resp 20 Wt 210 lb 14.4 oz (95.664 kg) SpO2 96% Body mass index is 33.02 kg/(m^2). GENERAL: healthy, alert and no distress MS: no gross musculoskeletal defects noted, no edema SKIN: no suspicious lesions or rashes NEURO: Normal strength and tone, mentation intact and speech normal PSYCH: mentation appears normal, affect normal/bright No further exam 25 minutes total with discussion and counselling equal to >%50 of visit. Diagnostic Test Results: none ASSESSMENT/PLAN: Problem List Items Addressed This Visit Muscle stiffness - Primary Relevant Medications baclofen (LIORESAL) tablet Other Relevant Orders [facility] REFERRAL Polymyalgia Relevant Medications baclofen (LIORESAL) tablet Other Relevant Orders [facility] Cisplatin induced neuropathy Relevant Medications gabapentin (NEURONTIN) capsule baclofen (LIORESAL) tablet Other Relevant Orders [facility] REFERRAL PHQ-9 ORDER - select when completing PHQ-9 (Completed) GENERAL ANXIETY DISORDER QUESTIONNAIRE (JUAN) (Completed) MEDICATIONS: Continue current medications without change. Patient referred to [facility] Rx assistanceplan. 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
--- OUTSIDE RECORDS SUMMARY | 2022-03-31 16:59 | XMS_ITS | Encounter Summary ---
:1985 Author Organization [place] Address [address] [place] [address] Care Team Providers Name Role Phone Carlos Chapman MD Primary Care Provider [phone] Reason for Visit Rehab Therapy Integrated Services - Closed Specialty Diagnoses / Procedures Referred By Contact Refer red To Contact Diagnoses Neuropathy Fatigue [facility] [address] [place], [place] [address] Phone: Fax: Referral ID Status Reason Start Date Expiration Date Visits V isits Requested Authorized FR- PT/OT Closed 12/03/2014 01/28/2015 365 365 ([id number]) Encounter Details Date Type Department Care Team Description 01/10/2015 Hospital Encounter [facility] Olivia Bejarano i, DO [facility] [address] [place] [address] Rehabilitation Services Kacie Santiago, PT [address] [place], [place] [address] [place] [address] [address] Social History Tobacco Use Types [...] capsule 12 capsule 1 015 11/05/2015 D3) 52298 UNITS (50,000 Units) by capsuleIndications: mouth once [...] on filedocumented in this encounter Care Teams Explosive Ordnance Specialist Relationship Specialty Start Date End Date Carlos Chapman MD PCP - General Family Practice 02/06/14 04/29/19 documented as of this encounter
--- OUTSIDE RECORDS SUMMARY | 2022-03-31 16:59 | XMS_ITS | Encounter Summary ---
:1985 Author Organization [place] Address [address] [facility] [place] [address] Care Team Providers Name Role Phone Carlos Chapman MD Primary Care Provider [phone] Aida Hdz Unavailable Carlos Chapman MD Unavailable Carlos Chapman MD Unavailable [facility] lukas Clinics- Reason for Visit Reason Onset Date Comments Forms 01/02/2015 Encounter Details Date Type Department Care Team Description 01/02/2015 Telephone [facility] Pain Gudelia Bejarano DO Forms Management Center [facility] [address] [place] [address] [place] [address] [place], [place] [phone] Social History Tobacco Use Types Packs/Day Years Used Date Smoking Tobacco: Never Smokeless Tobacco: Never Alcohol Use Standard Drinks/Week Comments Yes 0 (1 standard drink = 0.6 oz pure alcoho l) occ Sex Assigned at Date Recorded Not on file documented as of this encounter Miscellaneous Notes Telephone Encounter - Jayne Reeder RN - 01/02/2015 11:46 AM CDT Nathan left message. He faxed the form he forgot to bring to his last appt. When Dr. Bejarano is done completing it the form can be faxed to: [phone] Jayne Dempsey, [facility] documented in this encounter Plan of Treatment Not on filedocumented as of this encounter Visit Diagnoses Not on filedocumented in this encounter Care Teams Director Occupational Relationship Specialty Start Date End Date Carlos Chapman, PCP - General Family Practice 02/06/14 1 06/29/18 Carlos Chapman, PCP - Assigned PCP 06/28/16 08/02/18 [id number] BRUCE DELUCA [id number] [facility], PCP - General 04/30/19 [facility]- [address] [place] [address] Aida Hdz, [facility] Clinic Hauling Contractor Gas 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
--- OUTSIDE RECORDS SUMMARY | 2022-03-31 16:59 | XMS_ITS | Encounter Summary ---
:1985 Author Organization [facility] Address [address] [place] [address] Care Team Providers Name Role Phone Carlos Chapman MD Primary Care Provider [phone] Reason for Visit Rehab Therapy Integrated Services - Closed Specialty Diagnoses / Procedures Referred By Contact Refer red To Contact Diagnoses Neuropathy Fatigue [facility] [address] [place], [place] [address] Phone: Fax: Referral ID Status Reason Start Date Expiration Date Visits V isits Requested Authorized [facility]- PT/OT Closed 12/03/2014 01/28/2015 365 365 ([id number]) Encounter Details Date Type Department Care Team Description 01/04/[address] [facility] Olivia Bejarano i, DO [facility] [address] [place], [place] [address] Rehabilitation Services Bela Snyder, PT [id number] [address] Social History Tobacco Use Types [...] capsule 12 capsule 1 015 11/05/2015 D3) 63880 UNITS (50,000 Units) by capsuleIndications: mouth once a week Vitamin D deficiency DULoxetine (CYMBALTA) 30 Take 1 capsule (30 30 capsule 0 08/201403/19/2015 MG capsuleIndications: mg) by mouth daily Polymyalgia (H), Muscle stiffness gabapentin (NEURONTIN) Increase dose to 360 capsule [...] on filedocumented in this encounter Care Teams Service Attendant Relationship Specialty Start Date End Date Carlos Chapman MD PCP - General Family Practice 02/06/14 04/29/19 documented as of this encounter
--- OUTSIDE RECORDS SUMMARY | 2022-03-31 16:59 | XMS_ITS | Encounter Summary ---
:1985 Author Organization [place] Address [address] [address] Care Team Providers Name Role Phone Carlos Chapman MD Primary Care Provider Reason for Visit Rehab Therapy Integrated Services - Closed Specialty Diagnoses / Procedures Referred By Contact Refer red To Contact Diagnoses Neuropathy Fatigue [facility] [address] [place], [place] [address] Phone: Fax: Referral ID Status Reason Start Date Expiration Date Visits V isits Requested Authorized [facility]- PT/OT Closed 12/03/2014 01/28/2015 365 365 ([id number]) Encounter Details Date Type Department Care Team Description 12/05/2014 [facility] Bettina Bejarano nn, DO [facility] [address] [place] [address] Neuropathy (Primary Dx); Encounter Rehabilitation Kacie Santiago Ap, PT [address] [place], [place] [address] Fatigue Services [address] [address] Social History Tobacco Use Types [...] encounter Progress Notes Kacie Santiago, PT - 12/06/2014 7:45 AM CDT Images from the original note were not included. [facility] Outpatient Physical Therapy Evaluation PLAN OF TREATMENT FOR OUTPATIENT REHABILITATION (COMPLETE FOR INITIAL CLAIMS ONLY) Patient's Last Name, First Name, M.I. Date of : 1985 Ronn Hinkle Provider's Name [facility] Onset Date: 12/03/14 - date of order Start of Care Date: 12/05/14 Type: Physical Therapy Medical Diagnosis: fatigue, neuropathy, history of testicular cancer Therapy Diagnosis: Decline in functional activity tolerance and quality of life Visits from SOC: 1 _ Plan of Treatment: Frequency/Duration: 2x a week x 6 weeks Goals: see rosa in EPIC _ I CERTIFY THE NEED FOR THESE SERVICES FURNISHED UNDER THIS PLAN OF TREATMENT AND WHILE UNDER MY CARE (Physician co-signature of this document indicates review and certification of the therapy plan). Certification date from: 12/05/14 Certification date to: 01/18/15 Referring Provider: Dr. Bettina Bejarano Associated attestation - Bettina Bejarano DO - 12/06/2014 10:15 AM CDT Physician Attestation I agree with the information in this note. DO Jack Fournier Lisa Ap, PT - 12/06/2014 7:45 AM CDT 12/05/14 1200 Quick Adds Quick Adds Certification Type of Visit Initial OP PT Evaluation General Information Start of Care Date 12/05/14 Referring Physician Bettina Bejarano DO Orders Evaluate and Treat as Indicated Additional Orders cancer rehab Order Date 12/03/14 Medical Diagnosis neuropathy, fatigue Onset of illness/injury or Date of Surgery 12/03/14 (date of order, but reports fatigue eversince dx 1998) Special Instructions dx 1998 with testicular cancer and had chemo. in fall of 2013 had increased fatigue and all over pain interfering with function Surgical/Medical history reviewed Yes Pertinent history of current problem Pt dx with L testicular cancer with spinal mets [...] cancer free at this time - no reoccurence Prior level of function comment Pt states that he has been independent and pushes himself to complete activities but pays for it later with pain. He gets assist with cleaning service and yard service. He reports having to decrease his work due to inability to tolerate due to fatigue and pain. 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 Current Assistive Devices (none) Patient/Family Goals Statement fix me reports his pain has usually been manageable but has been out of control since last fall. He reports working 50 hours a week, doing intense exercise program - Insanity - similar to P90X. General Information Comments Reports that his general routine as very active. States that he pushes himself to do things. Example pushed himself to do a bike ride 6 miles - got back and that was it forthe day. [place] 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 Fall Risk Screen Fall screen completed by PT Per patient - Fall 2 or more times in past year? Yes Is patient a fall risk? Department fall risk interventions implemented (to further address) Fall screen comments states that he has fallen 3-4 times in the last year - feet and ankles do not hold him up . Fall when going sit to stand and legs just gave out. System Outcome Measures FACIT Fatigue Subscale (score out of 52). The higher the score, the better the QOL. 4 Pain Patient currently in pain Yes Pain location neck down arms neck wrist , down legs to feet. Pain rating 8/10 Pain comments describes pain down the arms as a steady pain, wrist and hands Achy pain if he breathes it is a sharp stabbing pain. Back down the legs 8-9 pain stabbing down the legs. Vital Signs Pulse 98 BP (!) 158/86 mmHg SpO2 98 % Cognitive Status Examination Orientation orientation to person, place and time Level of Consciousness alert Follows Commands and Answers Questions 100% of the time Personal Safety and Judgment at risk behaviors demonstrated (may over do with activity) Cognitive Comment appears appropriate at this session . On intake form reports difficulty with saying words or ideas, understanding words, difficulty with concentrating or gocusing, memory and hearing problems. Integumentary Integumentary Comments Increased warmth hands and perspiration palms. Reports difficutlties with heat regulation. Swelling for no reason of hands and feet Posture Posture Comments holds head to the left, FOrward shoulders and protracted scapula B, R iliac and PSIS elevated and forward, R posterior knee crease higher on the right. Supine R leg longer than the left. Real leg length 86 cm B ASIS to medial malleoli Standing deweights on R LE. Palpation Palpation scar on abdomen healed some fascial tightness along scar, tightness inferior sternum/xyphoid area. L4 area indent at spine - reports area of tumor removal. Range of Motion (ROM) ROM Comment cervical WNL, UE WNL but pain in the R shoulder with elevation. R LE WNL SLR to 70 degrees B Seated trunk rotation WNL. Pain /discomfort with all motions and movement Strength Strength Comments seated shoulder flexion 5/5 B, abduction 4+/5 on the right and 5/5 L , empty can not able to perform with resistance. LE strength functionally able to raise LE against gravity, able to perform sit to and from stand with limited UE use. Decreased tolerance to activity. Bed Mobility Bed Mobility Comments INdependent Transfer Skills Transfer Comments independent Gait Gait Comments ambulation without AD, no gait impairments noted Balance Balance Comments to assess further Sensory Examination Sensory Perception Comments reports decreased sensation in hands and feet sometimes more than others. He states he has had neuropathy ever since his chemo treatments Coordination Coordination Comments WNL Muscle Tone Muscle Tone Comments WNL Modality Interventions Planned Modality Interventions Comments per therapist discretion including pool therapy Planned Therapy Interventions Planned Therapy Interventions balance training;strengthening;stretching;transfer training;manual therapy;neuromuscular re-education Clinical Impression Criteria for Skilled Therapeutic Interventions Met yes, treatment indicated PT Diagnosis decline in functional activity tolerance, postural impairments APTA Preferred Practice Pattern musculoskeletal;neuromuscular Influenced by the following impairments neuropathy, postural impairments, fascial and muscle tightness, knowledge deficit regarding energy conservation, daily management of pain/activities. pain Functional limitations due to impairments inability to tolerate work and ADLS's due to excessive pain Rehab Potential good, to achieve stated therapy goals Rehab potential affected by motivated, limited ability to change neuropathy Therapy Frequency 2 times/Week Predicted Duration of Therapy Intervention (days/wks) 6 weeks Risk & Benefits of therapy have been explained Yes Patient, Family & other staff in agreement with plan of care Yes Clinical Impression Comments Pt appropriate for further PT assessment and treatment. He is agreeableto POC and continuation of PT. Progress may be gradual due to the length of time he has had his impairments as well as the severity of and generalized pain. Pt reports pain with breathing may have associated fascial /diaphragm tightness. Pt also appropriate for OT eval and treat for Cancer rehab program Education Assessment Preferred Learning Style Listening;Reading;Demonstration;Pictures/video Barriers to Learning Physical (pain) Goal 1 Goal Identifier 1 Goal Description Carlos to report decrease in his pain by atleast 50% or greater to allow improved functional mobility and quality of life. Target Date 01/18/15 Goal 2 Goal Identifier 2 Goal Description Carlos to ambulate 600 meters or greater in 6 minutes to demonstrate good tolerance to activity for increased tolerane to ADL/s Target Date 01/18/15 Goal 3 Goal Identifier 3 Goal Description Carlos to be independent in HEP to safely address his impairments at d/c. Target Date 01/18/15 Goal 4 Goal Identifier 4 Goal Description Carlos to tolerate 20 minutes of continuous exercise without significant change in vitals and without increse in pain that day or day after to demonstrate improved tolerance to activityfor improved quality of life and funciton. Target Date 01/18/15 Goal 5 Goal Identifier 5 Goal Description Carlos to have equal LE length in supine atleast 75% of the time to demonstrate improved postural alignment and assist in decreasing back and LE pain. Target Date 01/18/15 Total Evaluation Time Total Evaluation Time (Minutes) 20 Therapy Certification Certification date from 12/05/14 Certification date to 01/18/15 Medical Diagnosis fatigue, neuropathy, history of testicular cancer documented in this encounter Plan of Treatment Scheduled Referrals Name Type Priority Associated Diagnoses Order S [facility] PHYSICAL THERAPY REFERRAL Referral Routine Neurop athy Ordered: 12/03/2014 Fatigue documented as of this encounter Visit Diagnoses Diagnosis Neuropathy - Primary Mononeuritis of unspecified site Fatigue Other malaise and fatigue documented in this encounter Care Teams Dog Handler Relationship Specialty Start Date End Date Carlos Chapman MD PCP - General Family Practice 02/06/14 04/29/19 documented as of this encounter
--- OUTSIDE RECORDS SUMMARY | 2022-03-31 16:59 | XMS_ITS | Encounter Summary ---
:1985 Author Organization [place] Address [facility] [place] [address] Care Team Providers Name Role Phone Carlos Chapman MD Primary Care Provider [phone] Reason for Visit Reason Onset Date Comments Pt. Information/instruction 11/26/2014 Encounter Details Date Type Department Care Team Description 11/26/2014 Telephone [facility] Carlos Osorio Pt. 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 Margareth Devries RN Telephone Encounter - Carlos Chapman MD - 11/28/2014 4:31 PM CDT Has been having some issues with pain. Seen at ED, due to be seen at pain clinic soon. 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 Advised to seek out someonewho specialized in cisplatin related pain, including going to [place]. Will check with [facility] to see if they offer this. Letter - not working due to issues. Ready to knot picker cloth. Telephone Encounter - Margareth Devries RN - 11/26/2014 9:53 AM CDT Patient calling requesting to speak with Dr. Chapman regarding Diagnosing. Please call patient at [phone]. Margareth Devries RN documented in this encounter Plan of Treatment Not on filedocumented as of this encounter Visit Diagnoses Not on filedocumented in this encounter Care Teams Forestry Fire Aid Relationship Specialty Start Date End Date Carlos Chapman MD PCP - General Family Practice 02/06/14 04/29/19 documented as of this encounter
--- OUTSIDE RECORDS SUMMARY | 2022-03-31 16:59 | XMS_ITS | Encounter Summary ---
:1985 Author Organization [place] Address [address] [place] [id number] Care Team Providers Name Role Phone Carlos Chapman MD Primary Care Provider [phone] Reason for Visit Rehab Therapy Integrated Services - Closed Specialty Diagnoses / Procedures Referred By Contact Refer red To Contact Diagnoses Neuropathy Fatigue [facility] [address] [place], [place] [address] Phone: Fax: Referral ID Status Reason Start Date Expiration Date Visits V isits Requested Authorized [facility]- PT/OT Closed 12/03/2014 01/28/[phone] [id number]) Encounter Details Date Type Department Care Team Description 01/09/2015 Hospital Encounter [facility] Olivia Bejarano i, DO [facility] [address] [place], [place] [address] Rehabilitation Services Bela Snyder, PT [address] [id number] [address] [address] Social History Tobacco Use Types [...] capsule 12 capsule 1 015 11/05/2015 D3) 25169 UNITS (50,000 Units) by capsuleIndications: mouth once [...] mg) by mouth 2 Palpitations times daily documented as of this encounter Plan of Treatment Not on filedocumented as of this encounter Visit Diagnoses Not on filedocumented in this encounter Care Teams Pricing Actuary Relationship Specialty Start Date End Date Carlos Chapman MD PCP - General Family Practice 02/06/14 04/29/19 documented as of this encounter
--- OUTSIDE RECORDS SUMMARY | 2022-03-31 17:00 | XMS_ITS | Encounter Summary ---
:1985 Author Organization [place] Address [address] [place] [address] Care Team Providers Name Role Phone Carlos Chapman MD Primary Care Provider [phone] Reason for Visit Reason Onset Date Comments Nurse Advice Line 09/06/2014 Encounter Details Date Type Department Care Team Description 09/06/2014 Telephone [facility] Carlos Chapman, Nurse Advice Line Anjel BAEZA [address] [place] [address] [address] [place] [address] [place], [place] [phone] (Wo rk) [id number] [phone] Social History Tobacco Use Types Packs/Day Years Used Date Smoking Tobacco: Never Smokeless Tobacco: Never Alcohol Use Standard Drinks/Week Comments Yes 0 (1 standard drink = 0.6 oz pure alcoho l) occ Sex Assigned at Date Recorded Not on file documented as of this encounter Miscellaneous Notes Telephone Encounter - Margareth Devries RN - 09/07/2014 8:52 AM CDT Patient notified. Margareth Devries RN Telephone Encounter - Carlos Chapman MD - 09/07/2014 7:15 AM CDT I will send over a prescription for baclofen. He can take up to 15mg TID, but may need less. 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 F/u one month. 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 States he is having a hard time walking and at time breathing due to the muscle pain. Advise that he needs to be seen but he can't afford a visit at this time Please advise Stefany Lau RN, BSN documented in this encounter Plan of Treatment Not on filedocumented as of this encounter Visit Diagnoses Diagnosis Polymyalgia (H) - Primary Polymyalgia rheumatica Muscle stiffness Unspecified disorder of muscle, ligament , and fascia documented in this encounter Care Teams Information Security Architect Relationship Specialty Start Date End Date Carlos Chapman MD PCP - General Family Practice 02/06/14 04/29/19 documented as of this encounter
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
--- OUTSIDE RECORDS SUMMARY | 2022-03-31 17:00 | XMS_ITS | Encounter Summary ---
:1985 Author Organization [place] Address [facility] [place] [address] Care Team Providers Name Role Phone Alejandro Denise MD Primary Care Provider + Reason for Visit Reason Comments Fever x1 week with weakness in lópez ds, feet, ankles - seen in urgent care fri at [place] Encounter Details Date Type Department Care Team Description 02/05/2014 Office Visit [facility] Alejandro Denise sinusitis with symptoms > 10 days (Primary Dx); Clinic [place] Akshat Constantino MD Myalgia; [address] [facility] ARIJAI AESTHETIC Dizziness [place], [place] [address] [phone] [place], [place] [address] (Wo rk) Social History Tobacco Use Types Packs/Day Years Used Date Smoking Tobacco: Never Smokeless Tobacco: Never Alcohol Use Standard Drinks/Week Comments Yes 0 (1 standard drink = 0.6 oz pure alcoho l) occ Sex Assigned at Date Recorded Not on file documented as of this encounter Last Filed Vital Signs Vital Sign Reading Time Taken Comments Blood Pressure 128/79 02/05/2014 10:27 AM CDT Pulse 92 02/05/2014 10:27 AM CDT Temperature 36.8 ??C (98.3 ??F) 02/05/2014 10:27 AM CDT Respiratory Rate 16 02/05/2014 10:27 AM CDT Oxygen Saturation - - Inhaled Oxygen Concentration - - Weight 86.2 kg (190 lb) 02/05/2014 10:27 AM CDT Height - - Body Mass Index 30.67 06/27/2013 11:21 AM DIRECTOR OF HEALTH CARE MARKETING documented in this encounter Progress Notes Alejandro Denise MD - 02/05/2014 10:17 AM CDT SUBJECTIVE: Ronn Hinkle is a 28 year old male who presents to clinic today for the following health issues: For 1 week fever with weakness in hands, feet, ankles, sinus pressure, headache, light sensitive - seen in ER fri at [place] He had an evaluation which was negative on chest x-ray and labs. The patient denies changes in visual acuity, diplopia or amaurosis, no discharge, matting, redness, tearing or eye pain. He has had somenausea and dizziness. He has been congested but no cough. He denies hunger but he is eating. Past Medical History Diagnosis Date ??? Testicular cancer 1998 Problem list and histories reviewed & adjusted, as indicated. Additional history: as documented Current Outpatient Prescriptions Medication Sig Dispense Refill ??? ibuprofen 200 MG capsule Take 200 mg by mouth every 4 hours as needed for fever 120 capsule ??? pseudoePHEDrine (SUDAFED) 30 MG tablet Take by mouth every 4 hours as needed for congestion 112 tablet ??? NO ACTIVE MEDICATIONS BP Readings from Last 3 Encounters: 02/05/14 128/79 06/27/13 128/86 05/30/13 122/80 Wt Readings from Last 3 Encounters: 02/05/14 190 lb (86.183 kg) 06/27/13 177 lb (80.287 kg) 05/30/13 189 lb (85.73 kg) ROS: As above OBJECTIVE: BP 128/79 Pulse 92 Temp(Src) 98.3 ??F (36.8 ??C) (Oral) Resp 16 Wt 190 lb (86.183 kg) BMI 30.68 kg/m2 Body mass index is 30.68 kg/(m^2). GENERAL APPEARANCE: healthy, alert, no distress and cooperative EYES: Eyes grossly normal to inspection, PERRL and conjunctivae and sclerae normal HENT: ear canals and TM's normal, nasal mucosa edematous without rhinorrhea, frontal sinus tenderness bilateral and maxillary sinus tenderness bilateral NECK: no adenopathy, no asymmetry, masses, or scars, thyroid normal to palpation and trachea midlineand normal to palpation RESP: lungs clear to auscultation - no rales, rhonchi or wheezes CV: regular rates and rhythm, normal S1 S2, no S3 or S4 and no murmur, click or rub MS: extremities normal- no gross deformities noted SKIN: no suspicious lesions or rashes NEURO: Normal strength and tone, sensory exam grossly normal, mentation intact, speech normal and DTR symmetrically normal in lower extremities Normal labs reviewed from [place] ER ASSESSMENT/PLAN: (461.9) Acute sinusitis with symptoms > 10 days (primary encounter diagnosis) Plan: predniSONE (DELTASONE) 20 MG tablet, amoxicillin-clavulanate (AUGMENTIN) 875-125 MG per tablet (729.1) Myalgia Plan: predniSONE (DELTASONE) 20 MG tablet (780.4) Dizziness Comment: due to sinus congestion Plan: Sudafed and nasal rinse Alejandro Denise MD, MD [facility] documented in this encounter Nursing Notes Natalie Santacruz CMA - 02/05/2014 10:29 AM CDT Chief Complaint Patient presents with ??? Fever x1 week with weakness in hands, feet, ankles - seen in urgent care fri at [place] Initial BP 128/79 Pulse 92 Temp(Src) 98.3 ??F (36.8 ??C) (Oral) Resp 16 Wt 190 lb (86.183 kg) BMI 30.68 kg/m2 Estimated body mass index is 30.68 kg/(m^2) as calculated from the following: Height as of 14: 5' 6 (1.676 m). Weight as of this encounter: 190 lb (86.183 kg).. BP completed using cuff size large - RADeandre Santacruz Manager Clinical Pharmacy documented in this encounter Plan of Treatment Not on filedocumented as of this encounter Visit Diagnoses Diagnosis Acute sinusitis with symptoms > 10 days - Primary Acute sinusitis, unspecified Myalgia Mylagia and myositis, unspecified Dizziness Dizziness and giddiness documented in this encounter Care Teams Private Investigator Relationship Specialty Start Date End Date Alejandro Denise MD PCP - General 09/24/01 02/05/14 [facility] AESTHETIC [facility] [address] [place] [address] documented as of this encounter
--- OUTSIDE RECORDS SUMMARY | 2022-03-31 17:00 | XMS_ITS | Encounter Summary ---
:1985 Author Organization [place] Address [address] [place] [address] Care Team Providers Name Role Phone Carlos Chapman MD Primary Care Provider Encounter Details Date Type Department Care Team Description 04/16/2014 Orders Only [facility] Ching Weiss APRN SOB ( shortness of breath); Pulmonary Function CHIEF JAILER Status post chemotherapy Laboratory [address] [place] [address] 6th [address] [place] [id number] [phone] Social History Tobacco Use Types Packs/Day Years [...] Name Priority Date/Time Associated Diagnosis Comme nts HC DIFFUSING CAPACITY Routine 04/16/2014 3:33 SOB (shortness o f PM TRAIN RESERVATION CLERK breath) Status post chemotherapy HC PLETHYSMOGRAPHY LUNG Routine 04/16/2014 3:33 SOB (shortness of VOLUMES W/WO AIRWAY PM TRAIN RESERVATION CLERK breath) RESIST Status post chemotherapy HC RESPIRATORY FLOW Routine 04/16/2014 3:33 SOB (shortness of VOLUME LOOP PM TRAIN RESERVATION CLERK breath) Status post chemotherapy PFT GENERAL LAB TESTING Routine 04/16/2014 2:47 SOB (shortness of Results for this PM TRAIN RESERVATION CLERK breath) procedure are in Status post the results chemotherapy section. documented in this encounter Results Pulmonary function test procedure (04/16/2014 2:47 PM TRAIN RESERVATION CLERK) P athologist Signature FVC-Pred 4.52 L [facility] FVC-Pre 4.60 L [facility] FVC-%Pred-Pre 101 % [facility] FEV1-Pre 4.00 L [facility] FEV1-%Pred-Pre 105 % [facility] [id number] 84 % [facility] [id number]-Wqs 87 % [facility] VNY4PWE-%Pred-P 103 % [facility] re FEFMax-Pred 9.59 [...] [facility] ERV-%Pred-Pre 61 % [facility] [id number]-Rhny 83 % [facility] [id number]-Atr 87 % [facility] BXM5XRG8-%Pred- 104 % [facility] Pre FRCPleth-Pred 3.16 [...] [facility] VA-%Pred-Pre 92 % [facility] [id number]-[id number] 74 % [facility] [id number]-Gqa 95 % [facility] DAW5OTT-%Pred-P 129 % [facility] re Specimen (Source) Anatomical Collection Method Collection Time Re ceived Time Location / / Volume Laterality 04/16/2014 2:47 PM TRAIN RESERVATION CLERK Narrative [facility] - 04/20/2014 10:08 AM TRAIN RESERVATION CLERK The FVC, FEV1, FEV1/FVC ratio and UPW13-52% are within normal limits. ??The inspiratory flow rates are within normal limits. ??Lung volumes are within normal limits. ??The diffusing capacity is normal. ??However, the diffusing capacity was no t corrected for the patient's hemoglobin. The results are within normal limits. IMPRESSION: Normal Pulmonary Function ____MJOYCE JULIEN Ching Weiss APRN, CNP PFT ORDERABLES Performing Organization Address City/State/ZIP Code Phon e Number [facility] documented in this encounter Visit Diagnoses Diagnosis SOB (shortness of breath) Shortness of breath Status post chemotherapy Convalescence following chemotherapy documented in this encounter Care Teams Netsuite Developer Relationship Specialty Start Date End Date Carlos Chapman MD PCP - General Family Practice 02/06/14 04/29/19 documented as of this encounter
--- OUTSIDE RECORDS SUMMARY | 2022-03-31 17:00 | XMS_ITS | Encounter Summary ---
:1985 Author Organization [place] Address [facility] [place] [address] Care Team Providers Name Role Phone Carlos Chapman MD Primary Care Provider [phone] Reason for Visit Reason Onset Date Comments Patient Request for Note/Letter 08/20/2014 Encounter Details Date Type Department Care Team Description 08/20/2014 Telephone [facility] Patient R equest for Clinic Anjel Spring MD Note/Letter [facility], [address] [place] [address] [address] [place] [address] [place], [place] [phone] (Wo rk) [address] [phone] Social History Tobacco Use Types Packs/Day Years Used Date Smoking Tobacco: Never Smokeless Tobacco: Never Alcohol Use Standard Drinks/Week Comments Yes 0 (1 standard drink = 0.6 oz pure alcoho l) occ Sex Assigned at Date Recorded Not on file documented as of this encounter Miscellaneous Notes Telephone Encounter - Margareth Devries RN - 08/20/2014 2:45 PM CDT Letter faxed to number listed. Margareth Devries RN Telephone Encounter - Carlos Chapman MD - 08/20/2014 2:33 PM CDT Letter ready to pecan picker. Carlos Chapman MD Telephone Encounter - Margareth Devries RN - 08/20/2014 1:50 PM CDT Patient requesting a letter to give to his staff attorney stating that he is under your medical care for an ongoing illness. Letter t'd up. Please fax to Ambrosio Rodrigues at [phone]. Margareth Devries RN Telephone Encounter - Stephanie Rae - 08/20/2014 12:49 PM CDT PT requests that or nurse call him back to discuss details of his letter request. He can be reached at [phone]. documented in this encounter Plan of Treatment Not on filedocumented as of this encounter Visit Diagnoses Not on filedocumented in this encounter Care Teams [place] Applier Relationship Specialty Start Date End Date Carlos Chapman MD PCP - General Family Practice 02/06/14 04/29/19 documented as of this encounter
--- OUTSIDE RECORDS SUMMARY | 2022-03-31 17:00 | XMS_ITS | Encounter Summary ---
:1985 Author Organization [place] Address [address] [place] [address]. [place] [address] Care Team Providers Name Role Phone Carlos Chapman MD Primary Care Provider Reason for Visit Reason Onset Date Comments Refill Request 11/01/2014 Baclofen Encounter Details Date Type Department Care Team Description 11/01/2014 Refill [facility] Carlos Chapman Refill [facility] Anjel Spring MD (Baclofen) [address] [place] [address] [place], [place] [phone] (Wo rk) [address] [phone] Social History Tobacco Use Types Packs/Day Years Used Date Smoking Tobacco: Never Smokeless Tobacco: Never Alcohol Use Standard Drinks/Week Comments Yes 0 (1 standard drink = 0.6 oz pure alcoho l) occ Sex Assigned at Date Recorded Not on file documented as of this encounter Miscellaneous Notes Telephone Encounter - Margareth Devries RN - 11/01/2014 11:06 AM CDT Unable to fill per RN protocol. Will route to provider. Margareth Devries RN Telephone Encounter - Mariana Soliz - 11/01/2014 10:11 AM CDT [phone] Baclofen 10 MG Qty 116 Last Written Prescription Date:09/07/2014 Last Fill Quantity: 116 Last Office Visit with [facility] primary care provider: 03/09/2014 documented in this encounter Plan of Treatment Not on filedocumented as of this encounter Visit Diagnoses Diagnosis Polymyalgia (H) - Primary Polymyalgia rheumatica Muscle stiffness Unspecified disorder of muscle, ligament , and fascia documented in this encounter Care Teams Organizational Development Consultant Relationship Specialty Start Date End Date Carlos Chapman MD PCP - General Family Practice 02/06/14 04/29/19 documented as of this encounter
--- OUTSIDE RECORDS SUMMARY | 2022-03-31 17:00 | XMS_ITS | Encounter Summary ---
:1985 Author Organization [place] Address [address] [facility] [place] [address] Care Team Providers Name Role Phone Arturo Ng MD Primary Care Provider [phone] Reason for Referral Consultation - Closed Specialty Diagnoses / Procedures Referred By Contact Refer red To Contact Diagnoses Pain in joint involving lower leg, unspecified laterality Fatigue [facility] [address] [address] [address] [place] [address] Phone: [phone] Referral ID Status Reason Start Date Expiration Date Visits Requ ested Visits Authorized [id number] Closed 02/14/2014 08/13/2014 1 1 Reason for Visit Reason Comments Lab Result Notice Fatigue Generalized Body Aches Encounter Details Date Type Department Care Team Description 02/14/[address] [facility] Arturo Ng Pain in j oint involving lower leg, unspecified laterality (Primary Dx); Clinic Anjel Spring MD Fatigue [address] [address] [facility], [address] [place] [address] [place], [place] [phone] (Wo rk) [address] [phone] Social History Tobacco Use Types Packs/Day Years Used Date Smoking Tobacco: Never Smokeless Tobacco: Never Alcohol Use Standard Drinks/Week Comments Yes 0 (1 standard drink = 0.6 oz pure alcoho l) occ Sex Assigned at Date Recorded Not on file documented as of this encounter Last Filed Vital Signs Vital Sign Reading Time Taken Comments Blood Pressure 138/88 02/14/2014 7:04 AM CDT Pulse 84 02/14/2014 7:04 AM CDT Temperature 37.8 ??C (100 ??F) 02/14/2014 7:04 AM CDT Respiratory Rate 16 02/14/2014 7:04 AM CDT Oxygen Saturation - - Inhaled Oxygen Concentration - - Weight 87.1 kg (192 lb) 02/14/2014 7:04 AM CDT Height 167.6 cm (5' 6) 02/14/2014 7:04 AM CDT Body Mass Index 30.99 02/14/2014 7:04 AM CDT documented in this encounter Progress Notes Arturo Ng MD - 02/14/2014 7:07 AM CDT HPI Following up on extreme fatigue. Took last two days off from work last week. Start of the week started the day felt pretty good, but had extreme muscle fatigue set in by about noon. If he pushes through this muscles will actually start to shake, sharp pain shooting through muscles - legs, arms, legs. Next day woke with fatigue, feeling of pop rocks going off in NAZANIN LE muscles. Sensation lasted throughout the day, but tapered off fairly shortly. Also notes that sleeping is difficult after a long day, partly because of persistent leg pain, but this is not consistent. Rest is helpful - feels best onWednesday, worst on Wednesday. Strict relationship between effort and symptoms. When at worst will note that vision gets blurry, bad POPE, palpitations. Also notes that beer and or alcohol doesn't taste right recently. 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 Review of Systems Constitutional: Positive for malaise/fatigue. Eyes: Negative for blurred vision and double vision. Cardiovascular: Positive for palpitations. Musculoskeletal: Positive for myalgias, back pain and neck pain. Neurological: Positive for weakness and headaches. Negative for dizziness, tingling, tremors, sensory change, speech change, focal weakness, seizures and loss of consciousness. Physical Exam Constitutional: He is oriented to person, place, and time and well-developed, well-nourished, and inno distress. Neurological: He is alert and oriented to person, place, and time. No cranial nerve deficit. He exhibits normal muscle tone. Skin: Skin is warm and dry. Psychiatric: Mood and affect normal. Vitals reviewed. (719.46) Pain in joint involving lower leg, unspecified laterality (primary encounter diagnosis) Comment: Plan: Vitamin D Deficiency, ONC/HEME ADULT REFERRAL, MR Brain w/o & w Contrast (780.79) Fatigue Comment: Plan: Vitamin D Deficiency, ONC/HEME ADULT REFERRAL, MR Brain w/o & w Contrast, Deamidated Gliadin Peptide Angelica IgA IgG, CBC with platelets and differential, RETICULOCYTE COUNT, BLOOD MORPHOLOGY PATHOLOGIST REVIEW, Testosterone free and total, Folate, Vitamin B12 RTC in 1-2w Arturo Ng MD documented in this encounter Nursing Notes Candy Cedeño MA - 02/14/2014 7:07 AM CDT Chief Complaint Patient presents with ??? Lab Result Notice ??? Fatigue ??? Generalized Body Aches Initial BP 138/88 Pulse 84 Temp(Src) 100 ??F (37.8 ??C) (Oral) Resp 16 Ht 5' 6 (1.676 m) Wt 192 lb (87.091 kg) BMI 31 kg/f3DJAIUO@ BP completed using cuff size large. Candy Cedeño, Nuclear Power Plant Engineer documented in this encounter Plan of Treatment Scheduled Referrals Name Type Priority Associated Diagnoses Order S chedule ONC/HEME ADULT Referral Routine Pain in joint involving Or dered: 02/14/2014 REFERRAL lower leg, unspecified laterality Fatigue documented as of this encounter Procedures Procedure Name Priority Date/Time Associated Diagnosis Comme nts DEAMIDATED GLIADIN Routine 02/14/2014 7:42 AM Fatigue Res ults for this PEPTIDE AB IGA AND CDT procedure are in IGG the results section. CBC WITH PLATELETS & Routine 02/14/2014 7:42 AM Fatigue R esults for this DIFFERENTIAL CDT procedure are i n the results section. VITAMIN D DEFICIENCY Routine 02/14/2014 7:42 AM Pain in joint Results for this SCREENING CDT involving lower leg, procedu re are in unspecified the results laterality section. Fatigue TESTOSTERONE FREE AND Routine 02/14/2014 7:42 AM Fatigue Results for this TOTAL CDT procedure are i n the results section. RETICULOCYTE COUNT Routine 02/14/2014 7:42 AM Fatigue Res ults for this CDT procedure are i n the results section. FOLATE Routine 02/14/2014 7:42 AM Fatigue Results f or this CDT procedure are i n the results section. BLOOD MORPHOLOGY Routine 02/14/2014 7:42 AM Fatigue Resul ts for this PATHOLOGIST REVIEW CDT procedure are in the results section. VITAMIN B12 Routine 02/14/2014 7:42 AM Fatigue Results f or this CDT procedure are i n the results section. documented in this encounter Results Vitamin B12 (02/14/2014 7:42 AM CDT) athologist Signature Vitamin B12 421 >210 pg/mL [facility] Comment: Interp: [phone] = Normal Specimen Anatomical Collection Method Collection Time Receive d Time (Source) Location / / Volume Laterality Blood specimen 02/14/2014 7:42 AM 014 7:47 (specimen) CDT AM CDT Arturo Ng MD LAB - BLOOD ORDERABLES Performing Organization Address City/[facility]/ZIP Code Phon e Number [address] LABS Folate (02/14/2014 7:42 AM CDT) athologist Signature Folate 15.7 >5.4 ng/mL [facility] Comment: Interp: >5.4 ng/mL = Normal Specimen Anatomical Collection Method Collection Time Receive d Time (Source) Location / / Volume Laterality Blood specimen 02/14/2014 7:42 AM 014 7:47 (specimen) CDT AM CDT Arturo Ng MD LAB - BLOOD ORDERABLES Performing Organization Address City/[facility]/ZIP Code Phon e Number [address] LABS Testosterone free and total (02/14/2014 7:42 AM CDT) Analysis Performed At Patho logist Time Signature Percent 4.0 2.0 - 4.0 [facility] Testosterone Free % [facility] Testosterone 341 240 - 950 [facility] Total ng/dL [facility] Testosterone Free 13.6 8 - 30 [facility] ng/dL [facility] Comment: Analyte Specific Reagents (ASRs) are use d in many laboratory tests necessary for standard medical care and generally do not require FDA approval. ??This test was developed and its preformance character istics determined by [facility]. ? ?It has not been cleared or approved by the U.S. Food and Drug Administration. Specimen Anatomical Collection Method Collection Time Receive d Time (Source) Location / / Volume Laterality Blood specimen 02/14/2014 7:42 AM 014 7:47 (specimen) CDT AM CDT Arturo Ng MD LAB - BLOOD ORDERABLES Performing Organization Address City/State/ZIP Code Phon e Number [id number] [place] [address] LABS BLOOD MORPHOLOGY PATHOLOGIST REVIEW (02/14/2014 7:42 AM CDT) Component Value Ref Test Analysis Performed At [facility] Range Method Time Signature Copath Report Patient Name: RONN HINKLE MR#: [id number] Specimen #: [id number] Collected: 02/14/2014 Received: 02/15/2014 Reported: 02/15/2014 08:40 Ordering Phy(s): ARTURO NG TEST(S): Peripheral Smear Morphology FINAL DIAGNOSIS: Peripheral blood morphology: -Within normal limits for patient's age. COMMENT: The peripheral blood morphology provides no clues for the et iology of the clinical complain of fatigue and myalgias. ??Correlation with clinical findings is recommended. Electronically signed out by: Brian Cheng M.D. CLINICAL HISTORY: 28 years old male. Indication for peripheral blood morpholog y: Fatigue and myalgias. PERIPHERAL BLOOD DATA: Patient Value (Reference Range >18 year old male) 10.0 ?WBC (4.0-11.0 x 10*9/L) 5.17 ?RBC (4.4-5.9 x 10*12/L) 16.1 ?HGB (13.3-17.7 g/dL) 47.1 ?HCT (40.0-53.0 %) 91 ? MCV (78-100fL) 31.1 ?? MCH (26.5-33.0 pg) 34.2 ?? MCHC (31.5-36.5 g/dL) 12.6 ?? RDW (10.0-15.0 %) 222 ?PLT (150-450 x 10*9/L) 1.8 ?RETIC (2.0-6.0%) PERIPHERAL BLOOD DIFFERENTIAL (Reference ranges >18 year old) Percent 66 ?Neutrophils, segmented and bands 21 ?Lymphocytes 9 ?Monocytes 4 ?Eosinophils 0 ?Basophils Absolute 6.6 ??Neutrophils, segmented and bands ??(1.6 - 8.3 x 10*9/L ) 2.1 ??Lymphocytes ??(0.8 - 5.3 x 10*9/L) 0.9 ??Monocytes ??(0 -1.3 x 10*9/L) 0.4 ??Eosinophils ??(0 - 0.7 x 10*9/L) 0.0 ??Basophils ??(0 - 0.2 x 10*9/L) PERIPHERAL MORPHOLOGY: ERYTHROCYTES: The hemoglobin is recorded as 16.1 g/dL. ??The erythrocytes are normocytic normochromic. ??There is no evidence of anthony ites. LEUKOCYTES: The white blood cell count is recorded as 10,000 . ??The white blood cell count and differential are within normal limits. ??The neutrophils, eosinophils, basophils, monocytes and lymphocyt es show mature morphology. ??No microorganisms, dysplastic changes o r blasts are seen. PLATELETS: The platelet count is recorded as 222,000. ??The platelets show normal size and granulation. (Dictated by Brian Cheng MD 02-15-2014 8:41AM). CPT Codes: A: 51712-HWVX TESTING LAB LOCATION: [address] ??[address] COLLECTION SITE: Client: ??[facility] Location: ??[facility] (R) Specimen Anatomical Collection Method Collection Time Receive d Time (Source) Location / / Volume Laterality Blood specimen 02/14/2014 7:42 AM 014 7:38 (specimen) CDT AM CDT Arturo Ng MD LAB - BEAKER AP Performing Organization Address City/State/ZIP Code Phon e Number [place] RETICULOCYTE COUNT (02/14/2014 7:42 AM CDT) [facility] Method Time Signature % Retic 1.8 0.5 - 2.0 [facility] LAB Absolute 93.2 25 - 95 [place] Retic 10e9/L [facility] Retic Method Automated [facility] LAB Specimen Anatomical Collection Method Collection Time Receive d Time (Source) Location / / Volume Laterality Blood specimen 02/14/2014 7:42 AM 014 7:47 (specimen) CDT AM CDT Arturo Ng MD LAB - BLOOD ORDERABLES Performing Organization Address City/[facility]/ZIP Code Phon e Number [place] [address] [address] [address] [facility] LAB CBC with platelets and differential (02/14/2014 7:42 AM CDT) [facility] Method Time Signature WBC 10.0 4.0 - [facility] 11.0 CLINICS 10e9/L [facility] RBC Count 5.17 4.4 - 5.9 [place] 10e12/L [facility] Hemoglobin 16.1 13.3 - [place] 17.7 g/dL [facility] Hematocrit 47.1 40.0 - [facility] 53.0 % [facility] MCV 91 78 - 100 [facility] MCH 31.1 26.5 - [facility] 33.0 pg [facility] MCHC 34.2 31.5 - [facility] 36.5 g/dL [facility] RDW 12.6 10.0 - [facility] 15.0 % [facility] Platelet Count 222 150 - 450 [place] 10e9/L [facility] % Neutrophils 66.0 % [facility] % Lymphocytes 21.0 % [facility] % Monocytes 9.0 % [facility] % Eosinophils 4.0 % [facility] Absolute 6.6 1.6 - 8.3 [place] Neutrophil 10e9/L [facility] Absolute 2.1 0.8 - 5.3 [place] Lymphocytes 10e9/L [facility] Absolute 0.9 0.0 - 1.3 [place] Monocytes 10e9/L [facility] Absolute 0.4 0.0 - 0.7 [place] Eosinophils 10e9/L [facility] RBC Morphology Consistent [place] with reported [facility] LAB Platelet Normal [place] Estimate [facility] Diff Method Automated [place] Method [facility] Specimen Anatomical Collection Method Collection Time Receive d Time (Source) Location / / Volume Laterality Blood specimen 02/14/2014 7:42 AM 014 7:47 (specimen) CDT AM CDT Arturo Ng MD LAB - BLOOD ORDERABLES Performing Organization Address City/State/ZIP Code Phon e Number [facility] [address] [place], [place] [address] [id number] [facility] Deamidated Gliadin Peptide Angelica IgA IgG (02/14/2014 7:42 AM CDT) athologist Signature Deamidated 7 0 - 20 [facility] Gliadin Ab, IgA [facility] LAB[facility] Comment: Interpretation: Negative Deamidated Gliadin <5 0 - 20 Units [facility] Ab, IgG Interpretation: ??Negative [facility] Specimen Anatomical Collection Method Collection Time Receive d Time (Source) Location / / Volume Laterality Blood specimen 02/14/2014 7:42 AM 014 7:47 (specimen) CDT AM CDT Arturo Ng MD LAB - BLOOD ORDERABLES Performing Organization Address City/State/ZIP Code Phon e Number [facility] [address] [place], [place] [phone] [place] [address] [facility] (ABNORMAL) Vitamin D Deficiency (02/14/2014 7:42 AM CDT) P athologist Signature Vitamin D 23 (L) 30 - 75 [facility] Deficiency ug/L [facility] Comment: Season, race, dietary intake, and treatm ent affect the concentration of 35-rmvrggj-Wbjpzmw D. Values may decrea se during winter months and increase during summer months. Values less than 30 ug/L may indicate Vitamin D deficiency. Vitamin D determiniation is routinely p erformed by an immunoassay specific for 25 hydroxyvitamin D3. ??If an individua l is on vitamin D2 (ergocalciferol) supplementation, please specify 25 [place] v itamin D2 and D3 level determination by LCMSMS test VITD23. ??For questions, pl ease contact the laboratory at [phone]. Specimen Anatomical Collection Method Collection Time Receive d Time (Source) Location / / Volume Laterality Blood specimen 02/14/2014 7:42 AM 014 7:47 (specimen) CDT AM CDT Arturo Ng MD LAB - BLOOD ORDERABLES Performing Organization Address City/State/ZIP Code Phon e Number [facility] [address] LABS documented in this encounter Visit Diagnoses Diagnosis Pain in joint involving lower leg, unspe cified laterality - Primary Fatigue Other malaise and fatigue documented in this encounter Care Teams Tax Commissioner Relationship Specialty Start Date End Date Arturo Ng MD PCP - General Family Practice 02/06/14 04/29/19 documented as of this encounter
--- OUTSIDE RECORDS SUMMARY | 2022-03-31 17:00 | XMS_ITS | Encounter Summary ---
:1985 Author Organization [place] Address [facility] [place] [address] Care Team Providers Name Role Phone Carlos Chapman MD Primary Care Provider [phone] Reason for Visit Reason Onset Date Comments Pt. Information/instruction 02/06/2014 Patient requ ests call from Dr. Chapman Encounter Details Date Type Department Care Team Description 02/06/2014 Telephone [facility] Carlos Chapman Pt. Clinic Anjel Spring MD Information/instructio [address] AUNG fontaine (Patient requests [address] [place] [address] Chapman) [place], [place] [phone] (Wo rk) [address] [phone] Social History Tobacco Use Types Packs/Day Years Used Date Smoking Tobacco: Never Smokeless Tobacco: Never Alcohol Use Standard Drinks/Week Comments Yes 0 (1 standard drink = 0.6 oz pure alcoho l) occ Sex Assigned at Date Recorded Not on file documented as of this encounter Miscellaneous Notes Telephone Encounter - Margareth Devries RN - 02/08/2014 2:08 PM CDT Patient seen 02/07/[address] Chapman. Margareth Devries RN Telephone Encounter - Margareth Devries RN - 02/07/2014 9:02 AM CDT Left a detailed message on voice mail to call clinic back. Margareth Jaycob, RN Telephone Encounter - Carlos Chapman MD - 02/06/2014 3:36 PM CDT I'm happy to see him. I don't think he's been on the steroid long enough (about 24h at this point) to community engagement manager whether or not it's having much impact. Most testing would not be affected by steroid use. Carlos Chapman MD Telephone Encounter - Mariana Mccloud RN - 02/06/2014 3:20 PM CDT Please see msg. I'm not sure what tests he is referring to. Do you want to call and talk to him as he requests, or have him come in tomorrow? Telephone Encounter - Doris Moon - 02/06/2014 9:57 AM CDT Patient was seen on 02/05/[address] Denise for joint/muscle pain. Was prescribed a steroid, not feeling much better and feels something is going on. He is post chemo and worried. He wants to schedulea appointment with Dr. Chapman but wonders how long after taking steroids could tests be done with results not be effected by meds. He has copays and does not want to come in to soon. He would like to speak with . Please call patient to advise. Doris Moon. Linting Machine Operator. documented in this encounter Plan of Treatment Not on filedocumented as of this encounter Visit Diagnoses Not on filedocumented in this encounter Care Teams Radial Router Operator Relationship Specialty Start Date End Date Carlos Chapman MD PCP - General Family Practice 02/06/14 04/29/19 documented as of this encounter
--- OUTSIDE RECORDS SUMMARY | 2022-03-31 17:00 | XMS_ITS | Encounter Summary ---
:1985 Author Organization [place] Address [address] [facility] [place] [address] Care Team Providers Name Role Phone Carlos Chapman MD Primary Care Provider [phone] Reason for Visit Audiology - Closed Specialty Diagnoses / Procedures Referred By Contact Refer red To Contact Diagnoses Status post chemotherapy Bilateral sensorineural hearing loss Ching Weiss GOVERNMENT SALES MANAGER AUTOMATED MANUFACTURING INSTRUCTOR [address] [address] Referral ID Status Reason Start Date Expiration Date Visits Requ ested Visits Authorized [id number] Closed 04/06/2014 10/03/2014 1 1 Encounter Details Date Type Department Care Team Description 04/16/2014 Office Visit [facility] Ching Weiss A PRN AUTOMATED MANUFACTURING INSTRUCTOR [address] [facility] [address] [place] [address] Status post chemotherapy (Primary Dx); Clinic Audiology Shaneka [place], [place] [address] [place], [place] [address] Bilateral sensorineural hearing loss [address] clinic [address] [facility] [place] [phone] Social History Tobacco Use Types Packs/Day Years Used Date Smoking Tobacco: Never Smokeless Tobacco: Never Alcohol Use Standard Drinks/Week Comments Yes 0 (1 standard drink = 0.6 oz pure alcoho l) occ Sex Assigned at Date Recorded Not on file documented as of this encounter Progress Notes Shaneka Montana, AuD - 04/17/2014 3:35 PM CST AUDIOLOGY REPORT BACKGROUND INFORMATION: Ronn Hinkle was seen in the Audiology Clinic at the [facility] on 04/16/2014 for a hearing evaluation, referred by Ching Weiss NP. 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 He was treated with Cisplatin at the time. The patient reports a decrease in hearing andtinnitus following chemotherapy treatment. He believes there has been a gradual decrease in hearing since. He does complain of some loss of coordination over the past year. He denies true vertigo outside of when he drinks. He denies pain and pressure. 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 It is especially difficult to hear over the telephone in this environment. TEST RESULTS AND PROCEDURES: Otoscopy revealed clear ear canals. Tympanograms showed normal mobility of the right eardrum and hypermobility of the left eardrum . Ipsilateral and contralateral acoustic reflexes were present at normal levels at 1000 Hz, with the exception of an elevated left contralateral reflex. Conventional pure tone audiometry was conducted with good reliability from 250-8000 Hz bilaterally using insert earphones and TDH headphones. Results for air and bone conduction revealed normal hearing to 1500 Hz, sloping to a profound predominantly sensorineural hearing loss bilaterally. Note a 15 dB conductive component in the left ear at 1000 Hz. Speech spa receptionist thresholds were in good agreement with puretone averages. SUMMARY AND RECOMMENDATIONS: Today???s results show normal to profound sensorineural hearing loss, bilaterally. The patient is a hearing aid candidate based on today's test results. This was discussed with the patient and he was given information on the hearing aid program. He expressed some interest;however had reservations due to finances. We briefly discussed the [employer] program, for which he canaccess an application online. He is aware that he is more then welcome to return for services if desired. It is recommended that the patient follow up with an ear, nose, and throat (ENT) physician for medical clearance prior to pursuing amplification. It is also recommended that the patient have his hearing tested annually, or sooner if concerns are noted. Please call this clinic with questions regarding these results or recommendations. Luis Anthony. Sizing Machine And Drier Operator [place] #[id number] ENTER AND JOINER documented in this encounter Plan of Treatment Not on filedocumented as of this encounter Procedures Procedure Name Priority Date/Time Associated Diagnosis Comme nts AUDIOGRAM/ABR/OAE/TYPM 04/16/2014 12:00 AM CARPENTER AND JOINER - HIM SCAN documented in this encounter Results AUDIOGRAM/ABR/OAE/TYPM - HIM SCAN (04/16/2014 12:00 AM CARPENTER AND JOINER) Specimen (Source) Anatomical Location Collection Method / Collectio n Time Received Time / Laterality Volume 04/16/2014 Narrative This result has an attachment that is no t available. Provider Scan PROCEDURES documented in this encounter Visit Diagnoses Diagnosis Status post chemotherapy - Primary Convalescence following chemotherapy Bilateral sensorineural hearing loss Sensorineural hearing loss, bilateral documented in this encounter Care Teams Pigment Weigher Relationship Specialty Start Date End Date Carlos Chapman MD PCP - General Family Practice 02/06/14 04/29/19 documented as of this encounter
--- OUTSIDE RECORDS SUMMARY | 2022-03-31 17:00 | XMS_ITS | Encounter Summary ---
:1985 Author Organization [place] Address [address] [place] [address] Care Team Providers Name Role Phone Carlos Chapman MD Primary Care Provider [phone] Reason for Visit Reason Comments Social Work Services Encounter Details Date Type Department Care Team Description 04/06/2014 Office Visit [facility] CASE MANAGEMENT Kendra Casarez, Laura NOS(V65.40) [phone] SWAMPER (Primary Dx) Social History Tobacco Use Types Packs/Day Years Used Date Smoking Tobacco: Never Smokeless Tobacco: Never Alcohol Use Standard Drinks/Week Comments Yes 0 (1 standard drink = 0.6 oz pure alcoho l) occ Sex Assigned at Date Recorded Not on file documented as of this encounter Progress Notes Kendra Casarez, DENYS - 04/06/2014 3:05 PM CST Long-Term Follow-up/Survivorship Psychosocial Assessment Assessment completed of living situation, support system, financial status, functional status, coping, stressors, need for resources and social work intervention provided as needed. 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 Nurse Practitioner: Ching Weiss Presenting Information: Ronn is a 28 year-old, male, who presents to his first LTFU clinic visit appointment with his mother, Flori. Living Situation: Ronn rents a house in [place], [place]. He has two children, whom he has 50% custody of, sharing with his ex one week on and one week off. His parents do not live locally but are supportive. He has a sister who lives in [place], [place] and he sees her occasionally. Decision Making: Self Health Care Directive: Ronn does not have a health care directive but reports he has access to a computer should he choose to complete one in the future. Relationship Status: Ronn is . He does not have a positive relationship with his ex. According to Ronn and his mom, she is unstable and very unpredictable. He did have full custody of his children for some time until she agreed to receive the help she was required to do so by the courts. Ronn feels at the present time his children are safe but will not hesitate to contact appropriate parties should he be concerned for their safety at any point in time. Transportation Mode: Flori, Ronn's mom, drove to the appointment on this date. Ronn does drive and has a truck at home. Support System: Ronn states his parents are supportive, although they live over an hour away from him and his family. They help as much as they are able to. oRnn states he can rely on his sister; however, she has her own family to care for. He also mentioned he does have some friends who live in [place] that are supportive. Spirituality: This was not discussed during the interview due to time constraints. Insurance: Ronn is currently covered by [employer] through his current employer, [employer]. His insurance will be ending at the end of this month. Employment/Finances: Ronn has not been working for approximately a month and a half due to the pain he has been experiencing in his hands and feet. 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 Although he does have health care benefits through his employer, they do not offer short or long- term disability. 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 Finances are extremely tight at the present time. He is concerned about his businesses going under as he is in too much painto work. 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 His mother also spoke of a partnership he is involved in with his siblings. It is currently in his parents' names, and they give the children money a few times a year but thisis put back into the system to pay taxes. Patient Education/Development Level: Ronn completed all schooling in [place], [place] where he was born and raised. He states he did have accommodations throughout school, including an IEP. He states he managed ok but still notices concern regarding his ability to concentrate and process information at times. He is open to neuropsych testing; however, he feel he has more immediate concerns to addressat this time. Mental Health: Ronn denies any history of mental health concerns. Although he is currently undergoing several stressors, he states he does not feel anxious, rather he feels angry about his situation.He states he is not outwardly aggressive but feels angry, mostly about his cancer diagnosis and the late-term effects that have been caused by it. He does have a difficult time sleeping at night, and he attributes this to the pain he has been experiencing. He has been prescribed Ambien but prefers notto take it as he does not find it to be very effective. Emotional/Social Adjustment: Ronn appears to have some emotional set backs in terms of his anger regarding his cancer diagnosis. He questions where he would be in life if he had not been diagnosed with cancer; however, he understands his parents did what was best for him at the time. He is not angryat them, rather the situation itself. Assessment and Recommendations for the Team: dimension mill worker talked with Ronn and his mother to identify possible solutions to assist with Ronn's current stressors. It would most likely be beneficialfor Ronn to return to work; however, due to his pain he is not able to work. Ronn did speak withChing Weiss NP, about getting an appointment set up with a neurologist at the [facility], which Ching is currently assisting him with. Ronn cannot apply for unemployment at this time as he cannot work due to medical reasons. He is not interested in applying for disability, because he does want to be gainfully employed. In addition, the money he receives from his parents most likely would count as income and disqualify him for disability as a person can only bring in a certain amount of money each month, which he would most likely exceed. Ronn is not interested in applying for [place] or food stamps at the [facility] for his own personal reasons. His insurance is terminating at the end of this month, and this documentation writer urged him to apply for [place], which he is open to doing. Having access to food shelves and energy assistance would also be beneficial for Ronn, and he agreed with this recommendation. In terms of Ronn's mental health, it would most likely be beneficial for him to seek therapy to work through survivorship issues; however, he feels too overwhelmed with the immediate stressors in his life. Housing is also a concern for Ronn in regards to being able to pay rent. He has talked with a friendwho may move in to split rent. If this falls through, he may put an ad on [employer] to find a roommate. He is not interested in moving in with anyone else at this time. dimension mill worker will continue to meet with Ronn during yearly visits. Interventions: 1. Introduced self and role of addiction social worker. Provided card. 2. Assessed immediate needs and completed psychosocial assessment. 3. Provided application for energy assistance. 4. Provided phone #s for local food shelves. 5. Encouraged patient to contact this documentation writer with any additional resources including, but not limited to, therapy support, housing, financial support, and setting up neuropsych testing. 6. Patient will follow with Ching Weiss regarding setting up neurology appointment. JI Angel Clinical Director Of Financial Reporting [facility] H WINDER documented in this encounter Plan of Treatment Not on filedocumented as of this encounter Visit Diagnoses Diagnosis Counseling NOS(V65.40) - Primary Counseling NOS documented in this encounter Care Teams Traffic Control Specialist Relationship Specialty Start Date End Date Carlos Champan MD PCP - General Family Practice 02/06/14 04/29/19 documented as of this encounter
--- OUTSIDE RECORDS SUMMARY | 2022-03-31 17:00 | XMS_ITS | Encounter Summary ---
:1985 Author Organization [place] Address [facility] [place] [address] Care Team Providers Name Role Phone Carlos Chapman MD Primary Care Provider [phone] Reason for Visit Reason Onset Date Comments Refill Request 03/16/2014 Anupaxin Encounter Details Date Type Department Care Team Description 03/16/2014 Refill [facility] Carlos Chapman Refill [facility] Anjel Spring MD (Robaxin) [id number] [place] [address] [address] [place] [address] [place], [place] [phone] (Wo rk) [phone] Social History Tobacco Use Types Packs/Day Years Used Date Smoking Tobacco: Never Smokeless Tobacco: Never Alcohol Use Standard Drinks/Week Comments Yes 0 (1 standard drink = 0.6 oz pure alcoho l) occ Sex Assigned at Date Recorded Not on file documented as of this encounter Miscellaneous Notes Telephone Encounter - Margareth Devries RN - 03/16/2014 3:31 PM CDT Ok he will continue using it 2 tablets at bedtime as it is helping him. Can he get a refill? Margareth Devries RN Telephone Encounter - Carlos Chapman MD - 03/16/2014 2:06 PM CDT I'd advise against it. Using this medication was just a trial - I didn't have any particular reason to think it would be helpful. If it's not doing anything at the current dose it is unlikely to be helpful at a higher dose. Carlos Chapman MD Telephone Encounter - Margareth Devries RN - 03/16/2014 1:56 PM CDT Patient comes into clinic today with questions regarding short term disability. Questions answered. Patient requesting rx refill of Robaxin. He is wondering if he could increase his dose. He is currently taking 2 tablets at bedtime and it is just not cutting it. Wondering if he could take more. Please advise. Margareth Devries RN documented in this encounter Plan of Treatment Not on filedocumented as of this encounter Visit Diagnoses Diagnosis Muscle stiffness Unspecified disorder of muscle, ligament , and fascia documented in this encounter Care Teams Solar Energy Installation Manager Relationship Specialty Start Date End Date Carlos Chapman MD PCP - General Family Practice 02/06/14 04/29/19 documented as of this encounter
--- OUTSIDE RECORDS SUMMARY | 2022-03-31 17:00 | XMS_ITS | Encounter Summary ---
:1985 Author Organization [place] Address [address] [place] [address] Care Team Providers Name Role Phone Carlos Chapman MD Primary Care Provider [phone] Reason for Referral Consultation - Closed Specialty Diagnoses / Procedures Referred By Contact Refer red To Contact Diagnoses Muscle stiffness Carlos Chapman MD MULTIPLE LOCATIONS [address] [place] [address] Referral ID Status Reason Start Date Expiration Date Visits Requ ested Visits Authorized [id number] Closed 02/21/2014 08/20/2014 1 1 Reason for Visit Reason Comments Generalized Body Aches Encounter Details Date Type Department Care Team Description 02/21/2014 Office Visit [facility] Anjel Spring MD (Primary Dx) [id number] [facility] [place] [address] [place], [place] [phone] (Wo rk) [phone] Social History Tobacco Use Types Packs/Day Years Used Date Smoking Tobacco: Never Smokeless Tobacco: Never Alcohol Use Standard Drinks/Week Comments Yes 0 (1 standard drink = 0.6 oz pure alcoho l) occ Sex Assigned at Date Recorded Not on file documented as of this encounter Last Filed Vital Signs Vital Sign Reading Time Taken Comments Blood Pressure 122/86 02/21/2014 9:49 AM CDT Pulse 82 02/21/2014 9:49 AM CDT Temperature 36.9 ??C (98.4 ??F) 02/21/2014 9:49 AM CDT Respiratory Rate 14 02/21/2014 9:49 AM CDT Oxygen Saturation - - Inhaled Oxygen Concentration - - Weight 87.1 kg (192 lb) 02/21/2014 9:49 AM CDT Height 167.6 cm (5' 6) 02/21/2014 9:49 AM CDT Body Mass Index 30.99 02/21/2014 9:49 AM CDT documented in this encounter Progress Notes Carlos Chapman MD - 02/21/2014 9:54 AM CDT HPI Still having lots of issues with worsening body pain, muscle aches. Walking is difficult and painful. Stretching/yoga is helpful, but will only last for a few hours. Again last night had episodes of HAand blurred vision by the end of the day. Went to bed early, but woke sore and stiff, unable to go in to work this am. Pain and stiff ness seems to be through back of skull, down back and legs to feet. Has an appointment with oncology on 02/28. ROS Physical Exam (728.9) Muscle stiffness (primary encounter diagnosis) Comment: will try night time muscle relaxer. Waiting to see onc, will also start neuro. Uniwlling towork reduced schedule at this time. Plan: NEUROLOGY ADULT REFERRAL, methocarbamol (ROBAXIN) 500 MG tablet Greater than 50% of this 30 minute visit spent in counseling and coordination of care. Topics discussed included: referral, possibility of work restrictions RTC in 1m prn Carlos Chapman MD documented in this encounter Plan of Treatment Scheduled Referrals Name Type Priority Associated Diagnoses Order S chedule NEUROLOGY ADULT REFERRAL Referral Routine Muscle stiffness Ordered: 02/21/2014 documented as of this encounter Visit Diagnoses Diagnosis Muscle stiffness - Primary Unspecified disorder of muscle, ligament , and fascia documented in this encounter Care Teams Vice President Of Advertising Relationship Specialty Start Date End Date Carlos Chapman MD PCP - General Family Practice 02/06/14 04/29/19 documented as of this encounter
--- OUTSIDE RECORDS SUMMARY | 2022-03-31 17:00 | XMS_ITS | Encounter Summary ---
:1985 Author Organization [facility] Address [address] [place], [place] [address], [place] [address] Care Team Providers Name Role Phone Carlos Chapman MD Primary Care Provider [phone] Encounter Details Date Type Department Care Team Description 02/26/2014 Orders Only [facility] Dana n in limb (Primary Dx); [facility] Disturbance of skin sensatio n [address] [place] [address] Social History Tobacco Use [...] Procedure Name Priority Date/Time Associated Comments Diagnosis MYOGLOBIN QUANTITATIVE Routine 02/26/2014 10:55 Pain In Limb Results for this URINE AM CDT Disturbance Of procedure are in Skin Sensation the results section. LACTATE DEHYDROGENASE Routine 02/26/2014 10:54 Pain In L imb Results for this AM CDT Disturbance Of procedure are in Skin Sensation the results section. PROTEIN IMMUNOFIXATION Routine 02/26/2014 10:54 Pain In Limb Results for this SERUM AM CDT Disturbance Of procedure are in Skin Sensation the results section. PYRUVATE KINASE Routine 02/26/2014 10:54 Pain In Limb Results for this AM CDT Disturbance Of procedure are in Skin Sensation the results section. PARANEOPLASTIC ANTIBODY Routine 02/26/2014 10:54 Pain In Limb Results for this AM CDT Disturbance Of procedure are in Skin Sensation the results section. MAGNESIUM Routine 02/26/2014 10:54 Pain In Limb Results for this AM CDT Disturbance Of procedure are in Skin Sensation the results section. IRON AND IRON BINDING Routine 02/26/2014 10:54 Pain In L imb Results for this CAPACITY AM CDT Disturbance Of procedure are in Skin Sensation the results section. ERYTHROCYTE Routine 02/26/2014 10:54 Pain In Limb Results for this SEDIMENTATION RATE AUTO AM CDT Disturbance Of pr ocedure are in Skin Sensation the results section. CARNITINE FREE AND Routine 02/26/2014 10:54 Pain In Limb Results for this TOTAL AM CDT Disturbance Of procedure are in Skin Sensation the results section. ALDOLASE Routine 02/26/2014 10:54 Pain In Limb Results for this AM CDT Disturbance Of procedure are in Skin Sensation the results section. ACETYLCHOLINE RECEPTOR Routine 02/26/2014 10:54 Pain In Limb Results for this BLOCKING FER AM CDT Disturbance Of procedure are in Skin Sensation the results section. ACETYLCHOLINE RECEPTOR Routine 02/26/2014 10:54 Pain In Limb Results for this BINDING AM CDT Disturbance Of procedure are in Skin Sensation the results section. ACETYLCHOLINE Routine 02/26/2014 10:54 Pain In Limb Results for this MODULATING ANTIBODY AM CDT Disturbance Of proced ure are in Skin Sensation the results section. documented in this encounter Results Myoglobin quantitative urine (02/26/2014 10:55 AM CDT) Component Value Ref Test Analysis Performed At [facility] Range Method Time Signature Myoglobin 24 <1 [place] Hr/Random Reference range: 0 to 1 CLINIC S Urine Unit: mg/L [place] (Note) The pH of this sample is 7. ??Urine for myoglobin should have the pH adjusted to between 8.0 - 9.0, as myoglobin is unstable in urine. ??Results may not reflect the true status of the patient. INTERPRETIVE INFORMATION: ??Myoglobin, Urine Patients with urine myoglobin greater than 15 mg/L are at risk of acute renal failure. Usual results are less than 1 mg/L. Results between 1 and 15 mg/L are associated with vigorous exercise, myocardial infarction, mild muscle injury and other conditions. Test developed and characteristics determined by [facility]. See Compliance Statement B: [employer] Performed by [facility], [address] [place] [address] [email or web address], Jesus Ward MD, Lab. Director Specimen Anatomical Collection Method Collection Time Receive d Time (Source) Location / / Volume Laterality Urine specimen 02/26/2014 10:55 4 (specimen) AM CDT 11:00 AM CDT Lab Non-Fv Credentialed Provider LAB - URINE ORDERABLE S Performing Organization Address City/State/ZIP Code Phon e Number [facility] [address] [place], [place] [address] [address] Paraneoplastic antibody (02/26/2014 10:54 AM CDT) Component Value Ref [facility] Method Time Signature PNP Antibody SEE NOTE 03/04/2014 11:56 AM [place] (Note) [facility] Test ? Result ?? Flag ??Unit ?RefValue ------ Paraneoplastic Autoantibody Eval, S Interpretive Comments ?SEE NOTE ?? No informative autoantibodies were detected in this ?? evaluation. However, a negative result does not exclude ?? neurological autoimmunity with or without associated ?? neoplasia. DURGA-1, S ?Negative ? titer ?? <1:240 Reflex Added ? None. DURGA-2, S ?Negative ? titer ?? <1:240 DURGA-3, S ?Negative ? titer ?? <1:240 AGNA-1, S ?Negative ? titer ?? <1:240 TEXTILE MACHINERY INSTRUCTOR-1, S ? Negative ? titer ?? <1:240 TEXTILE MACHINERY INSTRUCTOR-2, S ? Negative ? titer ?? <1:240 TEXTILE MACHINERY INSTRUCTOR-Tr, S ?Negative ? titer ?? <1:240 Amphiphysin Ab, S ?Negative ? titer ?? <1:240 CRMP-5-IgG, S ?Nega tive ? titer ?? <1:240 ?? CRMP-5 Titers lower than 1:240 may be detectable by ?? recombinant CRMP-5 western blot analysis, available by ?? request on stored serum and recommended in cases of chor ea, ?? vision loss, cranial neuropathy and myelopathy. Extramur al ?? clients contact [facility] Inquiry at [phone] ?? to add-on CRMP-5-IgG Western Blot, Serum. Intramural ?? Clients, please call the Neuroimmunology Lab at [phone]. Striational (Striated Muscle) ?Negative ? titer ?? <1:120 ?? Ab, S P/Q-Type Calcium Channel Ab ?0.00 ? nmo l/L ??<=0.02 N-Type Calcium Channel Ab ?0.00 ? nm ol/L ??<=0.03 ACh Receptor (Muscle) Binding ?0.00 ? nmol /L ??<=0.02 ?? Ab AChR Ganglionic Neuronal Ab, S ?? 0.00 ? nmol/ L ??<=0.02 Neuronal (V-G) K+ Channel Ab, S ??0.00 ? nmol/ L ??<=0.02 ?? Test Performed by: ?? [facility] ?? [address] [place] [address] ?? Reflector Driller And Deburrer: Salo Cardona M.D. Specimen Anatomical Collection Method Collection Time Receive d Time (Source) Location / / Volume Laterality Blood specimen 02/26/2014 10:54 4 (specimen) AM CDT 10:59 AM CDT Lab Non-Fv Credentialed Provider LAB - BLOOD ORDERABLE S Performing Organization Address City/State/ZIP Code Phon e Number [facility] [address] [place] [place], [place] [address] [address] Acetylcholine modulating antibody (02/26/2014 10:54 AM CDT) athologist Signature AcetChol Modul 0 [facility] Comment: Reference range: <=45 Unit: % (Note) INTERPRETIVE INFORMATION: Acetylcholine Modulating Ab Negative .......... ??0-45 percent modu lating Positive .......... ??46 percent or gre ater modulating Approximately 85-90 percent of patients with myasthenia gravis (MG) express antibodies to the ac etylcholine receptor (AChR), which can be divided in to binding, blocking, and modulating antibodies. Bin ding antibody can activate complement and lead to loss of AChR. Blocking antibody may impair binding of acetylcho line to the receptor, leading to poor muscle contrac tion. Modulating antibody causes receptor endocytosis res ulting in loss of AChR expression, which correlates most c losely with clinical severity of disease. Approximat yue 10-15 percent of individuals with confirmed myasthenia gravis have no measurable binding, blocking, or modulat ing antibodies. Test developed and characteristics deter mined by [facility]. See Compliance Statement B : [employer] Performed by [facility], [address] [place] [address] [phone] [email or web address], Jesus Ward MD, L ab. Director Specimen Anatomical Collection Method Collection Time Receive d Time (Source) Location / / Volume Laterality Blood specimen 02/26/2014 10:54 4 (specimen) AM CDT 10:59 AM CDT Lab Non-Fv Credentialed Provider LAB - BLOOD ORDERABLE S Performing Organization Address City/State/ZIP Code Phon e Number [facility] [address] [place], [place] [address] [address] Acetylcholine receptor binding (02/26/2014 10:54 AM CDT) athologist Signature AcetChol 0.0 [facility] Comment: Reference range: 0.0 to 0.4 Unit: nmol/L (Note) INTERPRETIVE INFORMATION: Acetylcholine Binding Ab Negative ....... 0.0 - 0.4 nmol/L Positive ....... 0.5 nmol/L or greater Approximately 85-90 percent of patients with myasthenia gravis (MG) express antibodies to the ac etylcholine receptor (AChR), which can be divided in to binding, blocking, and modulating antibodies. Bin ding antibody can activate complement and lead to loss of AChR. Blocking antibody may impair binding of acetylcho line to the receptor, leading to poor muscle contrac tion. Modulating antibody causes receptor endocytosis res ulting in loss of AChR expression, which correlates most c losely with clinical severity of disease. Approximat yue 10-15 percent of individuals with confirmed myasthenia gravis have no measurable binding, blocking, or modulat ing antibodies. Test developed and characteristics deter mined by [facility]. See Compliance Statement B : [employer] Performed by [facility], [address] [facility] [address] [phone] [email or web address], Jesus Ward MD, L ab. Director Specimen Anatomical Collection Method Collection Time Receive d Time (Source) Location / / Volume Laterality Blood specimen 02/26/2014 10:54 4 (specimen) AM CDT 10:59 AM CDT Lab Non-Fv Credentialed Provider LAB - BLOOD ORDERABLE S Performing Organization Address City/[facility]/ZIP Code Phon e Number [facility] [address] [place], [place] [address] [address] Acetylcholine receptor blocking fer (02/26/2014 10:54 AM CDT) athologist Signature AcetChol Block 6 [facility] Comment: Reference range: 0 to 26 Unit: % (Note) INTERPRETIVE INFORMATION: Acetylcholine Blocking Ab Negative ............ ??0-26 percent bl ocking Indeterminate ....... 27-41 percent blo cking Positive ............ 42 percent or gre ater blocking Approximately 85-90 percent of patients with myasthenia gravis (MG) express antibodies to the ac etylcholine receptor (AChR), which can be divided in to binding, blocking, and modulating antibodies. Bin ding antibody can activate complement and lead to loss of AChR. Blocking antibody may impair binding of acetylcho line to the receptor, leading to poor muscle contrac tion. Modulating antibody causes receptor endocytosis res ulting in loss of AChR expression, which correlates most c losely with clinical severity of disease. Approximat yue 10-15 percent of individuals with confirmed myasthenia gravis have no measurable binding, blocking, or modulat ing antibodies. Test developed and characteristics deter mined by [facility]. See Compliance Statement B : [employer] Performed by [facility], [address] [place] [id number] [email or web address], Jesus Ward MD, L ab. Director Specimen Anatomical Collection Method Collection Time Receive d Time (Source) Location / / Volume Laterality Blood specimen 02/26/2014 10:54 4 (specimen) AM CDT 10:59 AM CDT Lab Non-Fv Credentialed Provider LAB - BLOOD ORDERABLE S Performing Organization Address City/[facility]/ZIP Code Phon e Number [facility] [address] [place], [place] [address] [address] Aldolase (02/26/2014 10:54 AM CDT) athologist Signature Aldolase 2.6 [facility] Comment: Reference range: 1.5 to 8.1 Unit: U/L (Note) REFERENCE INTERVAL: Aldolase Access complete set of age- and/or gende r-specific reference intervals for this test in the [facility] ([facility]). Performed by [facility], [address] [facility], [place] [address] [email or web address], Jesus Ward MD, L ab. Director Specimen Anatomical Collection Method Collection Time Receive d Time (Source) Location / / Volume Laterality Blood specimen 02/26/2014 10:54 4 (specimen) AM CDT 10:59 AM CDT Lab Non-Fv Credentialed Provider LAB - BLOOD ORDERABLE S Performing Organization Address [facility] Code Phon e Number [facility] [address] [place], [place] [address] [address] (ABNORMAL) Pyruvate kinase (02/26/2014 10:54 AM CDT) athologist Signature Pyruvate 7.0 (L) [place] Kinase Screen [facility] Comment: Reference range: 9.0 to 22.0 Unit: U/g Hb (Note) Performed by [facility], [address] [facility], [place] [address] [phone] [email or web address], Jesus Ward MD, L ab. Director Specimen Anatomical Collection Method Collection Time Receive d Time (Source) Location / / Volume Laterality Blood specimen 02/26/2014 10:54 4 (specimen) AM CDT 10:59 AM CDT Lab Non-Fv Credentialed Provider LAB - BLOOD ORDERABLE S Performing Organization Address [facility] Phon e Number [facility] [address] [place], [place] [address] [address] Lactate Dehydrogenase (02/26/2014 10:54 AM CDT) Patholo gist Method Time Signature Lactate 90 85 - 227 [place] Dehydrogenase U/L [facility] Comment: Effective 12/27/2013, the reference range for this assay has changed to reflect new instrumentation/methodology. Specimen Anatomical Collection Method Collection Time Receive d Time (Source) Location / / Volume Laterality Blood specimen 02/26/2014 10:54 4 (specimen) AM CDT 10:59 AM CDT Lab Non-Fv Credentialed Provider LAB - BLOOD ORDERABLE S Performing Organization Address City/[facility]/ZIP Code Phon e Number [facility] [address] [place] [address] [facility] [address] [place], [place] [address] Carnitine free and total (02/26/2014 10:54 AM CDT) P athologist Signature Carnitine Free 46 [facility] Comment: Reference range: 25 to 60 Unit: umol/L Carnitine Total 60 [facility] [place] Comment: Reference range: 34 to 86 Unit: umol/L (Note) Test developed and characteristics deter mined by [facility]. See Compliance Statement B : [employer]/ Carnitine Esterified 14 [facility] Comment: Reference range: 5 to 29 Unit: umol/L Carnitine Esterified/Free Ratio 0.3 [facility] Comment: Reference range: 0.1 to 1.0 (Note) Performed by [facility], [address] [place] [phone] [email or web address], Jesus Ward MD, L ab. Director Specimen Anatomical Collection Method Collection Time Receive d Time (Source) Location / / Volume Laterality Blood specimen 02/26/2014 10:54 4 (specimen) AM CDT 10:59 AM CDT Lab Non-Fv Credentialed Provider LAB - BLOOD ORDERABLE S Performing Organization Address City/[facility]/ZIP Code Phon e Number [facility] [address] [place], [place] [address] [address] Erythrocyte sedimentation rate auto (02/26/2014 10:54 AM CDT) P athologist Signature Sed Rate 4 0 - 15 mm/h [facility] Specimen Anatomical Collection Method Collection Time Receive d Time (Source) Location / / Volume Laterality Blood specimen 02/26/2014 10:54 4 (specimen) AM CDT 10:59 AM CDT Lab Non-Fv Credentialed Provider LAB - BLOOD ORDERABLE S Performing Organization Address City/[facility]/ZIP Code Phon e Number [facility] [address] [place], [place] [address] [address] Magnesium (02/26/2014 10:54 AM CDT) athologist Signature Magnesium 1.9 1.6 - 2.3 [facility] mg/dL [place] Specimen Anatomical Collection Method Collection Time Receive d Time (Source) Location / / Volume Laterality Blood specimen 02/26/2014 10:54 4 (specimen) AM CDT 10:59 AM CDT Lab Non-Fv Credentialed Provider LAB - BLOOD ORDERABLE S Performing Organization Address [facility]/ZIP [facility] Phon e Number [facility] [address] [place] [address] [facility] [address] [place] [phone] Iron and iron binding capacity (02/26/2014 10:54 AM CDT) athologist Signature Iron 112 35 - 180 [place] ug/dL [facility] Iron Binding 340 240 - 430 [facility] Cap ug/dL [facility] Iron Saturation 33 15 - 46 % [facility] Specimen Anatomical Collection Method Collection Time Receive d Time (Source) Location / / Volume Laterality Blood specimen 02/26/2014 10:54 4 (specimen) AM CDT 10:59 AM CDT Lab Non-Fv Credentialed Provider LAB - BLOOD ORDERABLE S Performing Organization Address City/[facility]/ZIP [facility] Phon e Number [facility] [address] [place] [address] [facility] [address] [place] [address] Protein Immunofixation Serum (02/26/2014 10:54 AM CDT) Component Value Ref Test Analysis Performed At [facility] gist Range Method Time Signature Immunofixation No monoclonal protein seen o n immunofixation. ??Pathological significance [facility] ELP requires clinical correlation. [place] Rocael Raymundo M.D., Ph.D [facility] Pathologist ([phone]) IGG 1,390 695 - [facility] 1,620 [place] mg/dL [facility] IGA 199 70 - 380 [facility] mg/dL [facility] IGM 129 60 - 265 [facility] mg/dL [facility] Specimen Anatomical Collection Method Collection Time Receive d Time (Source) Location / / Volume Laterality Blood specimen 02/26/2014 10:54 4 (specimen) AM CDT 10:59 AM CDT Lab Non-Fv Credentialed Provider LAB - BLOOD ORDERABLE S Performing Organization Address City/State/ZIP Code Phon e Number [id number] [place] [address] LABS documented in this encounter Visit Diagnoses Diagnosis Pain in limb - Primary Disturbance of skin sensation documented in this encounter Care Teams Heavy Equipment Supervisor Relationship Specialty Start Date End Date Carlos Chapman MD PCP - General Family Practice 02/06/14 04/29/19 documented as of this encounter
--- OUTSIDE RECORDS SUMMARY | 2022-03-31 17:00 | XMS_ITS | Encounter Summary ---
:1985 Author Organization [place] Address [address] [place] [address] Care Team Providers Name Role Phone Carlos Chapman MD Primary Care Provider [phone] Reason for Visit Reason Comments Generalized Body Aches Joint Pain Encounter Details Date Type Department Care Team Description 11/16/2014 - Emergency [facility] Pat Mcdowell Arthkim ia of multiple joints; 11/17/2014 [facility] Emergency MD [place] Body aches; Dept [facility] Blurry vision; [address] [place] Generalized muscle weakness; [place], [place] [address] [place] Hypokalemia [id number] [place], [place] [id number] (Wo rk) Social History Tobacco Use Types Packs/Day Years Used Date Smoking Tobacco: Never Smokeless Tobacco: Never Alcohol Use Standard Drinks/Week Comments Yes 0 (1 standard drink = 0.6 oz pure alcoho l) occ Sex Assigned at Date Recorded Not on file documented as of this encounter Last Filed Vital Signs Vital Sign Reading Time Taken Comments Blood Pressure 123/57 11/17/2014 12:56 AM CDT Pulse 91 11/16/2014 9:50 PM CDT Temperature 37.2 ??C (98.9 ??F) 11/16/2014 9:50 PM CDT Respiratory Rate 18 11/16/2014 9:50 PM CDT Oxygen Saturation 99% 11/17/2014 12:56 AM CDT Inhaled Oxygen Concentration - - Weight 91.6 kg (202 lb) 11/16/2014 9:50 PM CDT Height 170.2 cm (5' 7) 11/16/2014 9:50 PM CDT Body Mass Index 31.64 11/16/2014 9:50 PM CDT documented in this encounter Discharge Instructions Discharge InstructionsPat Mcdowell MD - 11/17/2014 12:35 AM CDT Images from the original note were not included. Arthralgia Arthralgia is the term for pain in or around the joint. It is not a disease but a symptom. This may involve one or more joints. Sometimes arthralgias move from joint to joint.?? There are many causes for joint pain. These include: ?? Injury ?? Osteoarthritis (from wearing out of the joint surface) ?? Rheumatoid arthritis (an autoimmune disease) ?? Gout (inflammation of the joint due to crystals in the joint fluid) ?? Infection inside the joint ? Bursitis (inflammation of the fluid-filled sacs around the joint) ?? Lupus and other collagen-vascular disease Home Care: ?? Rest the involved joint(s) until your symptoms improve.? You may use acetaminophen (Tylenol) or ibuprofen (Motrin, Advil) to control pain, unless another pain medicine was prescribed. [NOTE: If you have chronic liver or kidney disease or ever had a stomach ulcer or GI bleeding, talk with your doctor before using these medicines.] Follow Up with your doctor or as advised by our staff. [NOTE: If you had an X-ray it will be reviewed by a specialist. You will be notified of any new findings that may affect your care.] Return Promptly or contact your doctor if any of the following occurs: ?? Pain increases ?? Pain moves to other joints ?? New rash appears ?? Fever of 100.4??F (38??C) or higher, or as directed by your healthcare provider ?? [phone] [employer]. [address] [place] [address], [place] [address]. All rights reserved. This information is not intended as a substitute for professional medical care. Always follow your healthcare professional's instructions. Blurred Vision Blurred vision is the loss of sharpness of vision and the inability to see small details. Any changes in your vision whether sudden or gradual should be checked out by an printing specialist. There are many causes for vision changes including eye disease, a medicine side effect, or a condition like diabetes. Vision changes should never be ignored. They can get worse leading to permanent vision loss, which could cause a big change in the quality of your life. Home Care ?? Take measures to prevent falling at home. ?? Keep walkways clear of objects you may trip over. Use non-slip pads under rugs. ?? Do not walk in poorly lit areas. ?? Be cautious when going up and down curbs, and walking on uneven sidewalks. ?? Brighter lighting in your home may help you see better. Follow Up with an printing specialist or as advised by our staff. Some people misunderstand what kind of eye doctorthey should see. There are two types to consider: ?? An construction consultant??is a licensed doctor of optometry (but not a medical doctor). They specialize in eye exams and may diagnose some eye problems. They also prescribe glasses and contact lenses. ?? An radiation oncology therapist??is a medical doctor who specialize in eye care. They diagnose and treat all eye diseases, prescribe medicines and perform eye surgery. They may also prescribe glasses and contactlenses. An construction consultant can provide a basic screening eye exam for much less cost than an radiation oncology therapist. The construction consultant can tell you if your condition needs the services of an radiation oncology therapist. Get Prompt Medical Attention if any of the following occur: ?? Sudden change in your vision ?? Eye pain, redness, or discharge from your eyelid ?? Blurriness ?? Dark spots in your field of vision ?? Halos around lights ?? Floaters (dots or strings moving across your field of vision) ?? Sudden flash of light inside your eye ?? Dimness of vision ?? Partial or complete loss of vision ?? [phone] [employer] [address] [place] [address], [place] [address]. All rights reserved. This information is not intended as a substitute for professional medical care. Always follow your healthcare professional's instructions. Weakness [Uncertain Cause] Based on your exam today, the exact cause of your weakness is not certain. However, your weakness does not seem to be a sign of a serious illness at this time. Sometimes the signs of a serious illness take more time to appear. Therefore, please watch for the warning signs listed below. Home Care: 1) Rest at home today. Do not over-exert yourself. 2) Take your medicine as prescribed. 3) For the next few days, drink extra fluids (unless your doctor wants you to restrict fluids for other reasons). Do not skip meals. Follow Up with your doctor or as advised if you are not starting to feel better within TWO days. Get Prompt Medical Attention if any of the following occur: ?? Worsening of your symptoms ?? Chest, arm, neck, jaw or upper back pain ?? Dizziness or fainting ?? Trouble breathing ?? Unable to eat or drink normal amounts ?? Nausea, frequent vomiting, frequent diarrhea ?? Abdominal pain ?? Numbness or weakness of the face, one arm or one leg ?? Slurred speech, confusion, trouble speaking, walking or seeing ?? Blood in vomit or stool (black or red color) ?? Fever of 100.4?? F (38?? C) or higher, or as directed by your healthcare provider ?? [phone] [employer] [address] [place] [address]. All rights reserved. This information is not intended as a substitute for professional medical care. Always follow your healthcare professional's instructions. Your blood pressure was checked while you were in the emergency department today. The last reading we obtained was 162/125. Please read the guidelines below about what these numbers mean and what you should do about them. If your systolic blood pressure (the top number) is less than 120 and your diastolic blood pressure (the bottom number) is less than 80, then your blood pressure is normal. There is nothing more that you need to do about it. If your systolic blood pressure (the top number) is 120-139 or your diastolic blood pressure (the bottom number) is 80-89, your blood pressure may be higher than it should be. You should have your blood pressure rechecked within a year by a primary care provider. If your systolic blood pressure (the top number) is 140 or greater or your diastolic blood pressure (the bottom number) is 90 or greater, you may have high blood pressure. High blood pressure is treatable, but if left untreated over time it can put you at risk for heart attack, stroke, or kidney failure. You should have your blood pressure rechecked by a primary care provider within the next 4 weeks. If your provider in the emergency department today gave you specific instructions to follow-up with your doctor or provider even sooner than that, you should follow that instruction and not wait for upto 4 weeks for your follow-up visit. Hypokalemia Hypokalemia means a low level of potassium in the blood. This most often occurs in patients who takediuretics (water pills). It can also occur due to severe vomiting or diarrhea. A mild case usually causes no symptoms. It is only found with blood testing. More severe potassium loss causes generalized weakness, muscle or abdominal cramping, heart palpitations (rapid or irregularheartbeats) and low blood pressure. Home Care: 1) Take any potassium supplements prescribed. 2) Eat foods rich in potassium. The highest amount is found in artichoke, baked potatoes, spinach, cantaloupe, honeydew melon, cod, halibut, salmon, and scallops. White, red, or montgomery beans are also very good sources. A modest amount is found in orange juice, bananas, carrots, and tomato juice. 3) Certain types of diuretics (water pills), such as Lasix (furosemide), require that you take potassium supplements for as long as you take the diuretic pills. If you are taking a diuretic, discuss the need for potassium supplements with your doctor. Follow Up with your doctor for a repeat blood test within the next week or as advised by our staff. Get Prompt Medical Attention if any of the following occur: -- Increased weakness -- Feeling dizzy -- Irregular heartbeat, extra beats or very fast heart rate -- Fainting spell ?? [phone] [employer] [address] [place] [address]. All rights reserved. This information is not intended as a substitute for professional medical care. Always follow your healthcare professional's instructions. 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) ibuprofen 200 MG capsule Take 200 mg by 120 capsule 0 201312/05/2014 mouth every 4 hours as needed for fever NO ACTIVE MEDICATIONS 0 oxyCODONE-acetaminophen Take 1-2 tablets 15 tablet 0 201411/22/2014 (PERCOCET) 5-325 MG per by mouth every 4 tablet hours as needed for pain documented as of this encounter ED Notes Doris Hilliard RN - 11/17/2014 12:39 AM CDT Visual acuity 20/20 both eyes Pat Mcdowell MD - 11/16/2014 10:51 PM CDT History Chief Complaint: Generalized Body Aches and Joint Pain SHAWNA Hinkle is a 29 year old male who presents with his significant other for evaluation of generalized body aches and joint pain. He reports experiencing generalized body aches and joint pain ever since undergoing chemotherapy treatment for testicular cancer in 1998 which has gradually worsened since fall 2013 and significantly worsened over the past 4-5 days. Since the fall 2013 he has had occasional diffuse joint swelling, rashes on his ankles and hands, and diffuse joint aches and body aches of 7/10 severity and three weeks ago he was evaluated by his PCP who prescribed him Gabapentin and Baclofen. Two days ago he had blurred vision and weakness while driving, he was unable to sleep last night due to diaphoresis and subjective fever, and due to persistence of these symptoms in addition to increasing diffuse pain on the right side of his body, more than usual, he decided to present for evaluation tonight. He denies chills, cough, chest pain, nausea, vomiting, abdominal pain, bowel symptoms, urinary symptoms, dizziness, lightheadedness, or numbness in his extremities. Allergies: NKDA Medications: Baclofen Gabapentin Vitamin D3 Ibuprofen Past Medical History: Testicular cancer Past Surgical History: Left testicle removal due to cancer with spinal met Family History: Obesity - Mother, Father Social History: The patient was accompanied to the ED by his significant other. Smoking Status: Never Smoker Smokeless Tobacco: Never Used Alcohol Use: Yes Marital Status: Single Review of Systems Constitutional: Positive for fever (subjective) and diaphoresis. Negative for chills. Eyes: Positive for visual disturbance (blurred vision). Respiratory: Negative for cough. Cardiovascular: Negative for chest pain. Gastrointestinal: Negative for nausea, vomiting, abdominal pain, diarrhea, constipation and blood instool. Genitourinary: Negative for dysuria, urgency, frequency, hematuria and difficulty urinating. Musculoskeletal: Positive for myalgias and arthralgias. Neurological: Positive for weakness (generalized). Negative for dizziness, light-headedness and numbness. All other systems reviewed and are negative. Physical Exam First Vitals: BP: 162/125 mmHg Pulse: 91 Temp: 98.9 ??F (37.2 ??C) Resp: 18 Height: 170.2 cm (5' 7) Weight: 91.627 kg (202 lb) SpO2: 99 % Physical Exam General: Adult male sitting upright. Eyes: PERRL, Mild conjunctival injection on the right. EOMI. ENT: Moist mucous membranes, oropharynx clear. CV: Normal S1S2, no murmur, rub or gallop. Regular rate and rhythm Resp: Clear to auscultation bilaterally, no wheezes, rales or rhonchi. Normal respiratory effort. GI: Abdomen is soft, nontender and nondistended. No palpable masses. No rebound or guarding. MSK: No edema. Normal active range of motion. No palpable joint effusions. Mild tenderness to palpation of the right hand and wrist. No bony deformity or crepitus. Normal active ROM. Skin: Warm and dry. No rashes or lesions or ecchymoses on visible skin. Neuro: Alert and oriented. Responds appropriately to all questions and commands. No focal findings appreciated. Normal muscle tone. Psych: Normal mood and affect. Pleasant. Emergency Department Course Laboratory: CBC: All WNL (WBC 10.0, HGB 15.3, PLT 183) CMP: Potassium 3.2 low, Glucose 131 high, calcium 8.4 low, o/w WNL (Creat 1.03) CK total: 145 UA: Mucous present, o/w negative Interventions: 2326 Valium 5 mg PO 2327 Percocet 1 tablet PO 2328 Zofran 4 mg PO Emergency Department Course: 22:54: Nursing notes and vitals reviewed. I performed an exam of the patient as documented above. 23:15: The patient declined an IV. Blood was drawn for laboratory testing, results above. The patient provided a urine sample here in the emergency department. This was sent for laboratory testing, findings above. 00:23: Patient recheck - Patient reports improvement with percocet. The patient's visual acuity was checked here in the emergency department and found to be 20/20 in his right eye and 20/20 in his left eye. The patient reported improvement after the above interventions. I personally reviewed the laboratory results with the Patient and answered all related questions prior to discharge. Findings and plan explained to the Patient. Patient discharged home with instructions regarding supportive care, medications, and reasons to return. The importance of close follow-up was reviewed. The patient was prescribed Zofran and Percocet. Impression & Plan Medical Decision Making: Ronn Hinkle is a 29-year old male with a history of chronic myalgias, arthralgias, and neuropathiespresumed secondary to chemotherapy years ago for testicular cancer who presents to the ED with slow worsening of his symptoms that seem to be predominantly on the right side which is atypical for him. He is also complaining of blurry vision although this is not clearly a new symptom for him. He had normal visual acuity here. He had no fever, no concern for severe headache concerning for meningitis. He had no focal neurologic abnormalities. As this seems like an acute exacerbation of a chronic problem and laboratory evaluation here is unremarkable aside from mild hypokalemia, I feel comfortable discharging him home. This does not seem consistent with infectious/septic arthritis with lack of fever or leukocytosis. He was given an oral potassium supplement here and recommended high potassium foods, drink plenty of fluids, and since he had improvement with Percocet here, he can use that for a short c ourse until followup with his primary doctor for further longer-term pain control. He was recommended to return immediately to the ED should he have worsening in symptoms in the case that this is an acute process early in its manifestation. All questions were answered and he was discharged home in impr minda condition. Diagnosis: 1. (719.49) Arthralgia of multiple joints 2. (780.96) Body aches 3. (368.8) Blurry vision 4. (728.87) Generalized muscle weakness 5. (276.8) Hypokalemia New Prescriptions ONDANSETRON (ZOFRAN ODT) 4 MG DISINTEGRATING TABLET Take 1 tablet (4 mg) by mouth every 8 hours as needed for nausea OXYCODONE-ACETAMINOPHEN (PERCOCET) 5-325 MG PER TABLET Take 1-2 tablets by mouth every 4 hours as needed for pain IKacie, am serving as a scribe on 11/16/2014 at 22:54 to personally document services performed by Dr. Mcdowell based on my observations and the provider's statements to me. [facility] EMERGENCY DEPARTMENT Pat Mcdowell MD 11/17/14 0603 Sonya Dominguez RN - 11/16/2014 9:51 PM CDT Pt c/o all over body aches/joint pain for a long time but worsening past 4 days, starting on baclofen 1 month ago and gabapentin 3 weeks ago. Pt a/ox4, ABCs intact. documented in this encounter Plan of Treatment Not on filedocumented as of this encounter Procedures Procedure Name Priority Date/Time Associated Comments Diagnosis ROUTINE UA WITH STAT 11/16/2014 11:34 Results for this MICROSCOPIC PM CDT procedure are i n the results section. CBC WITH PLATELETS & STAT 11/16/2014 11:30 Res ults for this DIFFERENTIAL PM CDT procedure are i n the results section. COMPREHENSIVE STAT 11/16/2014 11:30 Results fo r this METABOLIC PANEL PM CDT procedure ar e in the results section. CK TOTAL STAT 11/16/2014 11:30 Results for this PM CDT procedure are i n the results section. documented in this encounter Results (ABNORMAL) UA with Microscopic (11/16/2014 11:34 PM CDT) Patholo gist Method Time Signature Color Urine Light Yellow [facility] Appearance Urine Clear [facility] Glucose Urine Negative NEG mg/dL [facility] Bilirubin Urine Negative NEG [facility] Ketones Urine Negative NEG mg/dL [facility] Specific [place] 1.015 1.003 - [place] Urine 1.035 [facility] Blood Urine Negative NEG [facility] pH Urine 6.0 5.0 - 7.0 [facility] Protein Albumin Negative NEG mg/dL [facility] Urobilinogen Normal 0.0 - 2.0 [place] mg/dL mg/dL [facility] Nitrite Urine Negative NEG [facility] Leukocyte Negative NEG [place] Esterase Urine [facility] Source Midstream [facility] WBC Urine 1 0 - 2 [place] [facility] RBC Urine 0 0 - 2 [place] [facility] Mucous Urine Present (A) NEG /LPF [facility] Specimen Anatomical Collection Method Collection Time Receive d Time (Source) Location / / Volume Laterality Urine specimen URINE SPECIMEN 11/16/2014 11:34 015 (specimen) OBTAINED BY CLEAN PM CDT 11:41 PM C DT CATCH PROCEDURE / Unknown Pat Mcdowell MD LAB - URINE ORDERABLES Performing Organization Address City/State/ZIP Code Phon e Number M [facility] [address] [address] [facility] [address] [phone] CK total (11/16/2014 11:30 PM CDT) P athologist Signature CK Total 145 30 - 300 [facility] U/L [facility] Specimen Anatomical Collection Method Collection Time Receive d Time (Source) Location / / Volume Laterality Blood specimen 11/16/2014 11:30 5 (specimen) PM CDT 11:40 PM CDT Pat Mcdowell MD LAB - BLOOD ORDERABLES Performing Organization Address City/State/ZIP Code Phon e Number [facility] [address] [place], [place] [address] [facility] [address] [place], [place] [address] [facility] [phone] (ABNORMAL) Comprehensive metabolic panel (11/16/2014 11:30 PM CDT) athologist Signature Sodium 140 133 - 144 [place] mmol/L [facility] Potassium 3.2 (L) 3.4 - 5.3 [place] mmol/L [facility] Chloride 105 94 - 109 [place] mmol/L [facility] Carbon Dioxide 23 20 - 32 [place] mmol/L [facility] Anion Gap 12 3 - 14 [place] mmol/L [facility] Glucose 131 (H) 70 - 99 [place] mg/dL [facility] Urea Nitrogen 15 7 - 30 [place] mg/dL [facility] Creatinine 1.03 0.66 - [place] 1.25 mg/dL [facility] GFR Estimate 85 >60 [place] mL/min/1.7 [facility] m2 HOSPITAL Comment: Non GFR Calc GFR Estimate If Black >90 >60 mL/min/1.7m2 F [facility] GFR Calc HOSP ITAL Calcium 8.4 (L) 8.5 - 10.1 mg/dL [facility] Bilirubin Total 0.3 0.2 - 1.3 mg/dL [facility] Albumin 3.8 3.4 - 5.0 g/dL [facility] Protein Total 7.3 6.8 - 8.8 g/dL [facility] Alkaline Phosphatase 105 40 - 150 U/L [facility] ALT 41 0 - 70 U/L [facility] AST 27 0 - 45 U/L [facility] Specimen Anatomical Collection Method Collection Time Receive d Time (Source) Location / / Volume Laterality Blood specimen 11/16/2014 11:30 5 (specimen) PM CDT 11:40 PM CDT Pat Mcdowell MD LAB - BLOOD ORDERABLES Performing Organization Address City/State/ZIP Code Phon e Number [facility] [address], [place] [address] [facility] [address] [id number] [facility] [phone] CBC with platelets differential (11/16/2014 11:30 PM CDT) [facility] Method Time Signature WBC 10.0 4.0 - [place] 11.[address] RBC Count 4.87 4.4 - 5.9 [place] 10e12L [facility] Hemoglobin 15.3 13.3 - [place] 17.7 g/dL [facility] Hematocrit 43.3 40.0 - [place] 53.0 % [facility] MCV 89 78 - 100 [place] fl [facility] MCH 31.4 26.5 - [place] 33.0 pg [facility] MCHC 35.3 31.5 - [place] 36.5 g/dL [facility] RDW 12.7 10.0 - [place] 15.0 % [facility] Platelet Count 183 150 - [address] Diff Method Automated [facility] % Neutrophils 52.9 % [facility] % Lymphocytes 30.6 % [facility] % Monocytes 8.4 % [facility] % Eosinophils 7.3 % [facility] % Basophils 0.3 % [facility] % Immature 0.5 % [place] Granulocytes [facility] Absolute 5.3 1.6 - 8.[address] [place] Neutrophil [address] [place] [address] Absolute 3.1 0.8 - 5.[address] [place] Lymphocytes [address] [place] [address] Absolute 0.8 0.0 - 1.[address] [place] Monocytes [address] [place] [address] Absolute 0.7 0.0 - 0.7 [place] Eosinophils [address] [place] [address] Absolute 0.0 0.0 - 0.[address] [place] Basophils [address] [place] [address] Abs Immature 0.1 0 - 0.4 [place] Granulocytes [address] [place] [address] Specimen Anatomical Collection Method Collection Time Receive d Time (Source) Location / / Volume Laterality Blood specimen 11/16/2014 11:30 5 (specimen) PM CDT 11:40 PM CDT Pat Mcdowell MD LAB - BLOOD ORDERABLES Performing Organization Address City/State/ZIP Code Phon e Number [facility] [address] [place], [place] [address] [facility] [address] [place], [place] [address] [facility] [phone] documented in this encounter Visit Diagnoses Diagnosis Arthralgia of multiple joints Pain in joint, multiple sites Body aches Generalized pain Blurry vision Other specified visual disturbances Generalized muscle weakness Muscle weakness (generalized) Hypokalemia Hypopotassemia documented in this encounter Administered Medications Inactive Administered Medications - up to 3 most recent administrations Medication Order MAR Action Action Date Dose Rate Site diazepam (VALIUM) tablet 5 mg Given 11/16/2014 11:27 PM CDT 5 mg 5 mg, Oral, ONCE, On Wed11/16/14 at 2319, For 1 dose ondansetron (ZOFRAN-ODT) disintegrating tablet Given 0 11/16/2014 11:29 PM CDT 4 mg 4 mg 4 mg, Oral, ONCE, On Wed11/16/14 at 2319, For 1 dose, With dry hands, peel back foil backing and gently remove tablet; do not push oral disintegrating tablet through foil backing; administer immediately on tongue and oral disintegrating tablet dissolves in seconds; then swallow with saliva; liquid not required. oxyCODONE-acetaminophen (PERCOCET) 5-325 Given 11/16/2014 11 :28 PM CDT 1 tablet MG per tablet 2 tablet 2 tablet, Oral, ONCE, On Wed11/16/14 at 2319, For 1 dose, Maximum acetaminophen dose from all sources= 75 mg/kg/day not to exceed 4 grams potassium chloride SA (K-DUR,KLOR-CON M) CR Given 10/30 12:47 AM CDT 20 mEq tablet 20 mEq 20 mEq, Oral, ONCE, On Wed11/17/14 at 0024, For 1 dose, DO NOT CRUSH. documented in this encounter Active and Recently Administered Medications Times are shown in CDT. Scheduled Medication Order 11/15/2014 11/16/2014 11/17/2014 diazepam (VALIUM) tablet 5 mg (COMPLETED) 8813 (Given - Provider: Doris Hilliard RN) 5 mg, Oral, ONCE, Wed11/16/14 at 2319, For 1 dose ondansetron (ZOFRAN-ODT) disintegrating tablet 4 mg (COMPLET ED) 2328 (Given - Provider: Doris Hilliard, RN) 4 mg, Oral, ONCE, 11/16/14 at 2319, F or 1 dose, With dry hands, peel back foil backing and gently remove tablet; do not push oral disintegrating tablet through foil backing; administer immediately on tongue and oral disintegrating tablet d issolves in seconds; then swallow with saliva; liquid not required. oxyCODONE-acetaminophen (PERCOCET) 5-325 MG per tablet 2 tab let (COMPLETED) 2327 (Given - Provider: Doris Hilliard, RN) 2 tablet, Oral, ONCE, 11/16/14 at 231 9, For 1 dose, Maximum acetaminophen dose from all sources= 75 mg/kg/day not to exceed 4 grams potassium chloride SA (K-DUR,KLOR-CON M) CR tablet 20 mEq (COMPL ETED) 0047 (Given - Provider: Brooklynn Metcalf, BRUCE) 20 mEq, Oral, ONCE, 11/17/14 at 0024, For 1 dose, DO NOT THUY H. documented in this encounter Care Teams Industrial Machine Operator Relationship Specialty Start Date End Date Carlos Chapman MD PCP - General Family Practice 02/06/14 04/29/19 documented as of this encounter
--- OUTSIDE RECORDS SUMMARY | 2022-03-31 17:00 | XMS_ITS | Encounter Summary ---
:1985 Author Organization [facility] Address [address] [place] [address] Care Team Providers Name Role Phone Alejandro Denise MD Primary Care Provider + Reason for Visit Reason Onset Date Comments Nurse Advice Line 06/27/2013 work restrictions Encounter Details Date Type Department Care Team Description 06/27/2013 Telephone [facility] Nathaniel Garg MD Nurse Advice Line (work Clinic [address] restrictions) [id number] [place] [phone] Social History Tobacco Use Types Packs/Day Years Used Date Smoking Tobacco: Never Smokeless Tobacco: Never Alcohol Use Standard Drinks/Week Comments Yes 0 (1 standard drink = 0.6 oz pure alcoho l) occ Sex Assigned at Date Recorded Not on file documented as of this encounter Miscellaneous Notes Telephone Encounter - Jayne Webb - 06/27/2013 1:04 PM CST Pt calls, saw AA one hour ago, meds cause drowsiness, works for the [employer], can't take meds at work so wonders if AA wants to excuse from work, work informs will need written restrictions, aware AA out this pm, ok for am, AA please advise/confirm work restrictions, route to inform pt in am at [phone] (home) Jayne Webb RN, BSN Message handled by Nurse Triage. RT KEEPER documented in this encounter Plan of Treatment Not on filedocumented as of this encounter Visit Diagnoses Not on filedocumented in this encounter Care Teams Service Transformer Repair Supervisor Relationship Specialty Start Date End Date Alejandro Denise MD PCP - General 09/24/01 02/05/14 [facility] [address] [place] [address] documented as of this encounter
--- OUTSIDE RECORDS SUMMARY | 2022-03-31 17:00 | XMS_ITS | Encounter Summary ---
:1985 Author Organization [facility] Address [facility] [place] [address] Care Team Providers Name Role Phone Carlos Chapman MD Primary Care Provider [phone] Reason for Visit Reason Comments Generalized Body Aches was in ED Wednesday, saw Dr Jesus tovar on Wednesday. Feeling shaky. crampy and weak. Encounter Details Date Type Department Care Team Description 02/07/2014 Office Visit [facility] Carlos Chapman Myalgia a nd myositis, unspecified (Primary Dx); Clinic Anjel Spring MD Fatigue; [place] [address] [facility], [address] [place] [address] [place], [place] [phone] (Wo rk) [address] [phone] Social History Tobacco Use Types Packs/Day Years Used Date Smoking Tobacco: Never Smokeless Tobacco: Never Alcohol Use Standard Drinks/Week Comments Yes 0 (1 standard drink = 0.6 oz pure alcoho l) occ Sex Assigned at Date Recorded Not on file documented as of this encounter Last Filed Vital Signs Vital Sign Reading Time Taken Comments Blood Pressure 138/90 02/07/2014 2:44 PM CDT Pulse 86 02/07/2014 2:44 PM CDT Temperature 36.9 ??C (98.4 ??F) 02/07/2014 2:44 PM CDT Respiratory Rate 18 02/07/2014 2:44 PM CDT Oxygen Saturation - - Inhaled Oxygen Concentration - - Weight 87.1 kg (192 lb) 02/07/2014 2:44 PM CDT Height 167.6 cm (5' 6) 02/07/2014 2:44 PM CDT Body Mass Index 30.99 02/07/2014 2:44 PM CDT documented in this encounter Progress Notes Carlos Chapman MD - 02/07/2014 2:46 PM CDT HPI SUBJECTIVE: Ronn Hinkle is a 28 year old male who presents to clinic today for the following health issues: Acute Illness Acute illness concerns?- body aches, Onset: x 1 week + ?? Fever: YES- off and on ?? Chills/Sweats: YES ?? Headache (location?): YES ?? Sinus Pressure:YES ?? Conjunctivitis: no ?? Ear Pain: no ?? Rhinorrhea: YES ?? Congestion: no ?? Sore Throat: no ?? Cough: no ?? Wheeze: no ?? Decreased Appetite: YES ?? Nausea: YES ?? Vomiting: no ?? Diarrhea: no ?? Dysuria/Freq.: no ?? Fatigue/Achiness: YES ?? Sick/Strep Exposure: no Therapies Tried and outcome: Is on anti biotics and prednisone Reports recurrent body aches, has been having issues lately with numbness, tingling, severe fatigue,palpitations, POPE and pain in his neck. Also report confusion, legs weakness, unsteady on his feet. Notes that this am he felt pretty OK, got worse as day goes on, this is a common pattern, feels that wo rking harder causes symptoms to increase more rapidly. Has had some degree of this for many years, but has become much more dramatic in the last year or so. Has had episodes of isolated focal weakness,but no pattern - could be hand, foot, both legs. Thinks it may be related to change in temperature, but not a strong relationship. No known alleviating or aggrevating factors. Episodes last the better part of the day when it occurs. Has had blurry vision, double vision, even as recently as today. Feels mood is good over all, generally sleeping well. Review of Systems Constitutional: Positive for malaise/fatigue. Negative for fever and weight loss. Respiratory: Positive for shortness of breath. Cardiovascular: Positive for palpitations. Musculoskeletal: Positive for myalgias, joint pain and falls. Neurological: Positive for dizziness, focal weakness and headaches. Negative for speech change, seizures and loss of consciousness. Endo/Heme/Allergies: Negative for polydipsia. Psychiatric/Behavioral: Negative for depression. The patient is not nervous/anxious and does not have insomnia. Physical Exam Constitutional: He is oriented to person, place, and time and well-developed, well-nourished, and inno distress. Eyes: Conjunctivae and EOM are normal. Pupils are equal, round, and reactive to light. Neck: No thyromegaly present. Cardiovascular: Normal rate, regular rhythm and normal heart sounds. Pulmonary/Chest: Effort normal and breath sounds normal. Musculoskeletal: He exhibits no edema. Lymphadenopathy: He has no cervical adenopathy. Neurological: He is alert and oriented to person, place, and time. He has normal sensation, normal strength and intact cranial nerves. He has a normal Vyuwac-Vvyi-Fkeezi Test, a normal Heel to Mcknight Test and a normal Romberg Test. He shows no pronator drift. L>R nystagmus. Vertigo with accomodative EOM. Negative DixHallpike NAZANIN Skin: Skin is warm and dry. Vitals reviewed. (729.1) Myalgia and myositis, unspecified (primary encounter diagnosis) Comment: Plan: CRP inflammation, CBC with platelets, Comprehensive metabolic panel, CK total, Lyme IgG and IgM screen (780.79) Fatigue Comment: Plan: CRP inflammation, CBC with platelets, Comprehensive metabolic panel, CK total, Lyme IgG and IgM screen (780.4) Dizziness Comment: Plan: no BPPV RTC in 2w Carlos Chapman MD documented in this encounter Plan of Treatment Not on filedocumented as of this encounter Procedures Procedure Name Priority Date/Time Associated Comments Diagnosis [place] ANTIBODY IGG Routine 02/07/2014 3:17 PM Myalgia And Results for this CDT Myositis, procedure are i n Unspecified the results Fatigue section. RHEUMATOID FACTOR Routine 02/07/2014 3:17 PM Myalgia And Resu lts for this CDT Myositis, procedure are i n Unspecified the results Fatigue section. LYME IGG AND IGM Routine 02/07/2014 3:17 PM Myalgia And Resul ts for this SCREEN CDT Myositis, procedure are i n Unspecified the results Fatigue section. LYME CONF IGG AND IGM Routine 02/07/2014 3:17 PM Myalgia And Results for this BY IMMUNOBLOT CDT Myositis, procedure are in Unspecified the results section. CRP INFLAMMATION Routine 02/07/2014 3:17 PM Myalgia And Resul ts for this CDT Myositis, procedure are i n Unspecified the results Fatigue section. COMPREHENSIVE Routine 02/07/2014 3:17 PM Myalgia And Results for this METABOLIC PANEL CDT Myositis, procedure ar e in Unspecified the results Fatigue section. CK TOTAL Routine 02/07/2014 3:17 PM Myalgia And Results f or this CDT Myositis, procedure are i n Unspecified the results Fatigue section. CBC WITH PLATELETS Routine 02/07/2014 3:17 PM Myalgia And Res ults for this CDT Myositis, procedure are i n Unspecified the results Fatigue section. documented in this encounter Results Lyme conf IgG and IgM by Western blot (02/07/2014 3:17 PM CDT) Component Value Ref Test Analysis Performed At [facility] Range Method Time Signature Lyme Confirm Negative [facility] IgG by Reference range: Negative CLIN ICS Immunoblot (Note) [place] Band(s) present: NONE (Insufficient number of bands for positive result) INTERPRETIVE INFORMATION: Borrelia Burgdorferi Ab, IgG Western Blot For this assay, a positive result is reported when any 5 or more of the following 10 bands are present: 18, 23, 28, 30, 39, 41, 45, 58, 66, or 93 kDa. ??All other banding patterns are reported as negative. Lyme Confirm Negative [facility] IgM by Reference range: Negative CLIN ICS Immunoblot (Note) [place] Band(s) present: 41 kDa (Insufficient number of bands for positive result) INTERPRETIVE INFORMATION: Borrelia Burgdorferi Antibody, IgM Western Blot For this assay, a positive result is reported when any 2 or more of the following bands are present: 23, 39, or 41 kDa. All other banding patterns are reported as negative. Performed by [employer], [address] [place] [id number] [email or web address], Jesus Ward MD, Lab. Director Specimen Anatomical Collection Method Collection Time Receive d Time (Source) Location / / Volume Laterality 02/07/2014 3:17 PM 4 3:18 CDT PM CDT Carlos Chapman MD LAB - BLOOD ORDERABLES Performing Organization Address City/State/ZIP Code Phon e Number [facility] [place] [address] Rheumatoid factor (02/07/2014 3:17 PM CDT) P athologist Signature Rheumatoid <20 <20 IU/mL [facility] LABS Specimen Anatomical Collection Method Collection Time Receive d Time (Source) Location / / Volume Laterality Blood specimen 02/07/2014 3:17 PM 014 3:18 (specimen) CDT PM CDT Carlos Chapman MD LAB - BLOOD ORDERABLES Performing Organization Address City/State/ZIP Code Phon e Number [address] LABS [place] Antibody IgG (02/07/2014 3:17 PM CDT) Component Value Ref Test Analysis Performed At [facility] [place] Range Method Time Signature [place] <0.2 0.0 - [facility] Antibody IgG Negative 0.9 AI MICROBIOLOGY Antibody index (AI) values reflect qualitative changes in a ntibody concentration that cannot be directly associated with clinical condition or disease state. Specimen Anatomical Collection Method Collection Time Receive d Time (Source) Location / / Volume Laterality Blood specimen 02/07/2014 3:17 PM 014 3:18 (specimen) CDT PM CDT Carlos Chapman MD LAB - BLOOD ORDERABLES Performing Organization Address City/[facility]/ZIP Code Phon e Number [address] MICROBIOLOGY (ABNORMAL) Lyme IgG and IgM screen (02/07/2014 3:17 PM CDT) [facility] [place] Method Time Signature Specimen Serum [facility] Lyme Screen IgG Equivocal NEG [facility] and IgM Test value: >or= 0.75 to <1 .00 Interpretation: Equivocal. Specimen submitted to [facility] ([facility]) for IgG and IgM [facility] Blot assays because of equivocal result. (A) Specimen Anatomical Collection Method Collection Time Receive d Time (Source) Location / / Volume Laterality Blood specimen 02/07/2014 3:17 PM 014 3:18 (specimen) CDT PM CDT Carlos Chapman MD LAB - BLOOD ORDERABLES Performing Organization Address City/State/ZIP Code Phon e Number [address] [address] [facility] LABS CK total (02/07/2014 3:17 PM CDT) athologist Signature CK Total 111 30 - 300 [facility] U/L [place] Specimen Anatomical Collection Method Collection Time Receive d Time (Source) Location / / Volume Laterality Blood specimen 02/07/2014 3:17 PM 014 3:18 (specimen) CDT PM CDT Carlos Chapman MD LAB - BLOOD ORDERABLES Performing Organization Address City/[facility]/ZIP Code Phon e Number [facility] [address] [place] [address] [facility] [address] [place] [address] Comprehensive metabolic panel (02/07/2014 3:17 PM CDT) athologist [facility] Sodium 141 133 - 144 [facility] mmol/L [place] Potassium 4.2 3.4 - 5.3 [facility] mmol/L [place] Chloride 105 94 - 109 [facility] mmol/L [place] Carbon Dioxide 28 20 - 32 [facility] S mmol/L [place] Anion Gap 8 6 - 17 [facility] mmol/L [place] Glucose 96 70 - 99 [facility] mg/dL [place] Comment: Effective 12/27/2013, the reference range for this assay has changed to reflect new instrumentation/methodology. Urea Nitrogen 16 7 - 30 mg/dL [place] CL[facility] ICS DOWNS Comment: Effective 12/27/2013, the reference range for this assay has changed to reflect new instrumentation/methodology. Creatinine 0.99 0.66 - 1.25 mg/dL [place] [facility] INICS [place] GFR Estimate 89 >60 mL/min/1.7m2 [facility] [place] Comment: Non GFR Calc GFR Estimate If >90 >60 mL/min/1.7m2 [facility] Black GFR Calc [place] Calcium 9.2 8.5 - 10.1 mg/dL [place] CL[facility] ICS [place] Comment: Effective 12/27/2013, the reference range for this assay has changed to reflect new instrumentation/methodology. Bilirubin Total 0.4 0.2 - 1.3 mg/dL [facility] Albumin 4.4 3.9 - 5.1 g/dL [facility] S DOWNS Protein Total 8.2 6.8 - 8.8 g/dL [place] [facility] [place] Alkaline Phosphatase 92 40 - 150 U/L [facility] EW [facility] ALT 49 0 - 70 U/L [facility] AST 28 0 - 45 U/L [facility] Specimen Anatomical Collection Method Collection Time Receive d Time (Source) Location / / Volume Laterality Blood specimen 02/07/2014 3:17 PM 014 3:18 (specimen) CDT PM CDT Carlos Chapman MD LAB - BLOOD ORDERABLES Performing Organization Address City/State/ZIP Code Phon e Number [facility] [address] [place] [address] [facility] [address] [place], [place] [address] CBC with platelets (02/07/2014 3:17 PM CDT) P athologist Signature WBC 10.6 4.0 - 11.0 [place] 10e9/L [facility] RBC Count 5.01 4.4 - 5.9 [place] 10e12/L [facility] Hemoglobin 15.8 13.3 - [place] 17.7 g/dL [facility] Hematocrit 45.9 40.0 - [place] 53.0 % [facility] MCV 92 78 - 100 [facility] MCH 31.5 26.5 - [place] 33.0 pg [facility] MCHC 34.4 31.5 - [place] 36.5 g/dL [facility] RDW 12.2 10.0 - [facility] Platelet Count 234 150 - 450 [place] 10e9/L [facility] Specimen Anatomical Collection Method Collection Time Receive d Time (Source) Location / / Volume Laterality Blood specimen 02/07/2014 3:17 PM 2 014 3:18 (specimen) CDT PM CDT Carlos Chapman MD LAB - BLOOD ORDERABLES Performing Organization Address City/State/ZIP Code Phon e Number [facility] [address] [place] [address] CRP inflammation (02/07/2014 3:17 PM CDT) Analysis Performed At Patho logist Time Signature CRP Inflammation <2.9 0.0 - 8.0 [facility] mg/L [facility] LABS Specimen Anatomical Collection Method Collection Time Receive d Time (Source) Location / / Volume Laterality Blood specimen 02/07/2014 3:17 PM 014 3:18 (specimen) CDT PM CDT Carlos Chapman MD LAB - BLOOD ORDERABLES Performing Organization Address City/State/ZIP Code Phon e Number [id number] [place] [address] LABS documented in this encounter Visit Diagnoses Diagnosis Myalgia and myositis, unspecified - Prim ava Mylagia and myositis, unspecified Fatigue Other malaise and fatigue Dizziness Dizziness and giddiness documented in this encounter Care Teams Child Care Lead Teacher Relationship Specialty Start Date End Date Carlos Chapman MD PCP - General Family Practice 02/06/14 04/29/19 documented as of this encounter
--- OUTSIDE RECORDS SUMMARY | 2022-03-31 17:00 | XMS_ITS | Encounter Summary ---
:1985 Author Organization [facility] Address [address] [facility] [place] [address] Care Team Providers Name Role Phone Carlos Chapman MD Primary Care Provider [phone] Reason for Visit (Routine) - Closed Specialty Diagnoses / Procedures Referred By Contact Refer red To Contact Radiology / Radiology. Diagnoses sb: Epic. Rh Mri Procedures MR BRAIN WWO [address] [place] [address] Phone: Fax: Referral ID Status Reason Start Date Expiration Date Visits Requ ested Visits Authorized [id number] Closed 02/15/2014 02/15/2015 1 1 Encounter Details Date Type Department Care Team Description 02/19/2014 [facility] Chapman in joint involving lower leg, unspecified laterality; Konstantin Spring MD Fatigue [address] [address] [facility] [phone] [place], [place] [phone] [address] Social History Tobacco Use Types Packs/Day Years Used Date Smoking Tobacco: Never Smokeless Tobacco: Never Alcohol Use Standard Drinks/Week Comments Yes 0 (1 standard drink = 0.6 oz pure alcoho l) occ Sex Assigned at Date Recorded Not on file documented as of this encounter Medications at Time of Discharge Medication Sig Dispensed Refills Start Date End Date amoxicillin-clavulanate Take 1 tablet by 20 tablet 0 201302/28/2014 (AUGMENTIN) 875-125 MG mouth 2 times daily per tabletIndications: Acute sinusitis with symptoms > 10 days ibuprofen 200 MG capsule Take 200 mg by 120 capsule 0 201312/05/2014 mouth every 4 hours as needed for fever NO ACTIVE MEDICATIONS 0 pseudoePHEDrine Take by mouth every 112 tablet 0 02/05/2014 11/16/2014 (SUDAFED) 30 MG tablet 4 hours as needed for congestion documented as of this encounter Plan of Treatment Not on filedocumented as of this encounter Procedures Procedure Name Priority Date/Time Associated Diagnosis Comme nts MR BRAIN W/O & W Routine 02/19/2014 5:26 PM Pain in joint Resu lts for this CONTRAST CDT involving lower leg, procedu re are in unspecified the results laterality section. Fatigue documented in this encounter Results MR Brain w/o & w Contrast (02/19/2014 5:26 PM CDT) Anatomical Region Laterality Modality Head, SUBRAD MR NEURO, UMP MR NEURO Magn etic Resonance Specimen (Source) Anatomical Location Collection Method / Collectio n Time Received Time / Laterality Volume Impressions 02/19/2014 7:45 PM CDT IMPRESSION: Negative brain and brainstem MRI examination without and with intravenous contrast. RONN GIRALDO MD Narrative 02/19/2014 7:45 PM CDT MR BRAIN WITHOUT AND WITH CONTRAST ?? 02/19/2014 ?? 5:26 PM HISTORY: Pain and malaise. Headache. TECHNIQUE: Routine pulse sequences witho ut and with contrast. 9 mL of Gadavist given. FINDINGS: Diffusion-weighted images are normal. The brain parenchyma, brainstem, ventricular system, subarachn oid spaces, and vascular structures are normal in appearance. Spe cifically, there is no evidence for any acute infarction, acute hemorrhage, or any intracranial mass lesions. Postcontrast images do not show any abnormal enhancement. Procedure Note Ronn Giraldo MD - 02/19/2014Form atting of this note might be different from the original. MR BRAIN WITHOUT AND WITH CONTRAST 2013 5:26 PM HISTORY: Pain and malaise. Headache. TECHNIQUE: Routine pulse sequences witho ut and with contrast. 9 mL of Gadavist given. FINDINGS: Diffusion-weighted images are normal. The brain parenchyma, brainstem, ventricular system, subarachn oid spaces, and vascular structures are normal in appearance. Spe cifically, there is no evidence for any acute infarction, acute hemorrhage, or any intracranial mass lesions. Postcontrast images do not show any abnormal enhancement. IMPRESSION IMPRESSION: Negative brain and brainstem MRI examination without and with intravenous contrast. RONN GIRALDO MD Carlos Chapman MD IMG MRI ORDERABLES documented in this encounter Visit Diagnoses Diagnosis Pain in joint involving lower leg, unspe cified laterality Fatigue Other malaise and fatigue documented in this encounter Administered Medications Inactive Administered Medications - up to 3 most recent administrations Medication Order MAR Action Action Date Dose Rate Site gadobutrol (GADAVIST) injection 10 Given 02/19/2014 5:09 PM CDT 9 mLs mL 10 mL, Intravenous, ONCE, On 02/19/14 at 1700, For 1 dose documented in this encounter Care Teams Ornamental Iron Erector Relationship Specialty Start Date End Date Carlos Chapman MD PCP - General Family Practice 02/06/14 04/29/19 documented as of this encounter
--- OUTSIDE RECORDS SUMMARY | 2022-03-31 17:00 | XMS_ITS | Encounter Summary ---
:1985 Author Organization [place] Address [address] [place] [address] Care Team Providers Name Role Phone Carlos Chapman MD Primary Care Provider [phone] Reason for Visit Reason Onset Date Comments Nurse Advice Line 02/19/2014 labs Encounter Details Date Type Department Care Team Description 02/19/2014 Telephone [facility] Carlos Chapman Nurse Adv ice Line [facility] [place] MD Saw (labs) [address] [place] [address] 5 [phone] Social History Tobacco Use Types Packs/Day Years Used Date Smoking Tobacco: Never Smokeless Tobacco: Never Alcohol Use Standard Drinks/Week Comments Yes 0 (1 standard drink = 0.6 oz pure alcoho l) occ Sex Assigned at Date Recorded Not on file documented as of this encounter Miscellaneous Notes Telephone Encounter - Jayne Webb RN - 02/19/2014 11:49 AM CDT Pt calls, computer issue, informed of normal results Jayne Webb RN, BSN Message handled by Nurse Triage. documented in this encounter Plan of Treatment Not on filedocumented as of this encounter Visit Diagnoses Not on filedocumented in this encounter Care Teams Internet Application Developer Relationship Specialty Start Date End Date Carlos Chapman MD PCP - General Family Practice 02/06/14 04/29/19 documented as of this encounter
--- OUTSIDE RECORDS SUMMARY | 2022-03-31 17:00 | XMS_ITS | Encounter Summary ---
:1985 Author Organization [place] Address [address] [place] [address] Care Team Providers Name Role Phone Carlos Chapman MD Primary Care Provider [phone] Encounter Details Date Type Department Care Team Description 04/24/2014 Office Visit Buck Vazquez, NO SHOW ( Primary Dx) [facility] [address] [place] [address], [facility] [address] [place] [address] (Work) [phone] Social History Tobacco Use Types Packs/Day Years Used Date Smoking Tobacco: Never Smokeless Tobacco: Never Alcohol Use Standard Drinks/Week Comments Yes 0 (1 standard drink = 0.6 oz pure alcoho l) occ Sex Assigned at Date Recorded Not on file documented as of this encounter Progress Notes Buck Castillo MD - 04/24/2014 12:48 PM CST No show TRICAL INTEGRATOR documented in this encounter Plan of Treatment Not on filedocumented as of this encounter Visit Diagnoses Diagnosis NO SHOW - Primary documented in this encounter Care Teams Hydrotel Operator Relationship Specialty Start Date End Date Carlos Chapman MD PCP - General Family Practice 02/06/14 04/29/19 documented as of this encounter
--- OUTSIDE RECORDS SUMMARY | 2022-03-31 17:00 | XMS_ITS | Encounter Summary ---
:1985 Author Organization [place] Address [address] [facility] [place] [address] Care Team Providers Name Role Phone Carlos Chapman MD Primary Care Provider [phone] Encounter Details Date Type Department Care Team Description 02/28/2014 Hospital Encounter [facility] Marcelino Melgoza, Test icular cancer, [facility] Laboratory unspecified [address] laterality (H) [place] [address] Social History Tobacco Use Types Packs/Day Years Used Date Smoking Tobacco: Never Smokeless Tobacco: Never Alcohol Use Standard Drinks/Week Comments Yes 0 (1 standard drink = 0.6 oz pure alcoho l) occ Sex Assigned at Date Recorded Not on file documented as of this encounter Medications at Time of Discharge Medication Sig Dispensed Refills Start Date End Date ibuprofen 200 MG capsule Take 200 mg by 120 capsule 0 201312/05/2014 mouth every 4 hours as needed for fever methocarbamol (ROBAXIN) Take 2 tablets 30 tablet 1 02/22/20 14 03/16/2014 500 MG (1,000 mg) by mouth tabletIndications: 3 times daily as Muscle stiffness needed for muscle spasms NO ACTIVE MEDICATIONS 0 pseudoePHEDrine Take by mouth every 112 tablet 0 02/05/2014 11/16/2014 (SUDAFED) 30 MG tablet 4 hours as needed for congestion documented as of this encounter Plan of Treatment Not on filedocumented as of this encounter Procedures Procedure Name Priority Date/Time Associated Comments Diagnosis LACTATE DEHYDROGENASE Routine 02/28/2014 3:33 PM Testicular ca ncer, Results for this CDT unspecified procedure are i n laterality (H) the results section. HCG TUMOR MARKER Routine 02/28/2014 3:33 PM Testicular cancer, Results for this CDT unspecified procedure are i n laterality (H) the results section. AFP TUMOR MARKER Routine 02/28/2014 3:33 PM Testicular cancer, Results for this CDT unspecified procedure are i n laterality (H) the results section. documented in this encounter Results HCG tumor marker (02/28/2014 3:33 PM CDT) P athologist Signature Beta-HCG Tumor <3 <5 IU/L [facility] LABS Specimen Anatomical Collection Method Collection Time Receive d Time (Source) Location / / Volume Laterality Blood specimen 02/28/2014 3:33 PM 014 3:36 (specimen) CDT PM CDT Marcelino Melgoza MD LAB - BLOOD ORDERABLES Performing Organization Address [facility] Phon e Number [facility] [address] LABS AFP tumor marker (02/28/2014 3:33 PM CDT) athologist Signature Alpha 2.1 0 - 8 ug/L [facility] Fetoprotein [facility] LABS Specimen Anatomical Collection Method Collection Time Receive d Time (Source) Location / / Volume Laterality Blood specimen 02/28/2014 3:33 PM 014 3:36 (specimen) CDT PM CDT Marcelino Melgoza MD LAB - BLOOD ORDERABLES Performing Organization Address City/[facility] Phon e Number [facility] [address] LABS Lactate Dehydrogenase (02/28/2014 3:33 PM CDT) Analysis Performed At Patho logist Time Signature Lactate 89 85 - 227 [facility] Dehydrogenase U/L [facility] LAB Comment: Effective 12/27/2013, the reference range for this assay has changed to reflect new instrumentation/methodology. Specimen Anatomical Collection Method Collection Time Receive d Time (Source) Location / / Volume Laterality Blood specimen 02/28/2014 3:33 PM 014 3:36 (specimen) CDT PM CDT Marcelino Melgoza MD LAB - BLOOD ORDERABLES Performing Organization Address City/State/ZIP Code Phon e Number [facility] [address] [place], [place] [address] [facility] documented in this encounter Visit Diagnoses Diagnosis Testicular cancer, unspecified lateralit y documented in this encounter Care Teams Fleet Service Manager Relationship Specialty Start Date End Date Carlos Chapman MD PCP - General Family Practice 02/06/14 04/29/19 documented as of this encounter
--- OUTSIDE RECORDS SUMMARY | 2022-03-31 17:00 | XMS_ITS | Encounter Summary ---
:1985 Author Organization [place] Address [address] [place] [address] Care Team Providers Name Role Phone Carlos Chapman MD Primary Care Provider [phone] Reason for Visit Reason Comments Oncology Clinic Visit Testicular CA Encounter Details Date Type Department Care Team Description 02/28/2014 Oncology Visit [facility] Marcelino Melgoza MD [facility] cancer, Cancer Center unspecified la terality [place] (H) (Primary Dx) [address] [facility] [address] [place] [address] Social History Tobacco Use Types Packs/Day Years Used Date Smoking Tobacco: Never Smokeless Tobacco: Never Alcohol Use Standard Drinks/Week Comments Yes 0 (1 standard drink = 0.6 oz pure alcoho l) occ Sex Assigned at Date Recorded Not on file documented as of this encounter Last Filed Vital Signs Vital Sign Reading Time Taken Comments Blood Pressure 129/88 02/28/2014 2:35 PM CDT Pulse 97 02/28/2014 2:35 PM CDT Temperature 37 ??C (98.6 ??F) 02/28/2014 2:35 PM CDT Respiratory Rate 18 02/28/2014 2:35 PM CDT Oxygen Saturation 98% 02/28/2014 2:35 PM CDT Inhaled Oxygen Concentration - - Weight 88 kg (194 lb) 02/28/2014 2:35 PM CDT Height 170 cm (5' 6.93) 02/28/2014 2:35 PM CDT Body Mass Index 30.45 02/28/2014 2:35 PM CDT documented in this encounter Patient Instructions Patient Marcelino Mckeon MD - 02/28/2014 3:04 PM CDT 1- Please schedule a visit with cancer survivorship clinic - scheduled/tw 2- Please obtain records from [facility] - had patient sign release/tw 3- Labs today - sent over to hospital/tw 4- RTC 6 months - scheduled/tw documented in this encounter Progress Notes Marcelino Melgoza MD - 02/28/2014 3:32 PM CDT This clinic visit note has been dictated. [id number] Marcelino Melgoza MD - 02/28/2014 3:32 PM CDT [facility] HEMATOLOGY ONCOLOGY ONCOLOGY CONSULTATION REFERRING PROVIDER: Carlos Chapman M.D. REASON FOR CONSULTATION: History of testicular cancer. HISTORY OF PRESENT ILLNESS: Mr. Ronn Hinkle is a 28-year-old gentleman who states that in 1998 he was diagnosed with a tumor of left testicle. He was almost 14 years old at that time and he had [facility]. He states that at that time he was found to have 3-4cm mass in his spine. He had chemotherapy for almost 6 months after that went ahead with surgery andhad 6 more months of chemotherapy. He states that for almost 2 years after the initial treatment, hewas regular with his followup and eventually has not been following up with his oncologist at [facility]. He states that overall he did not have issues with cancer recurrence in the last 15 years; however, he has suffered from multiple long-term side effects from his treatment. He states that he has chronic fatigue and also associated with chronic pain and aches which are generalized in nature. He states that he does not have any significant back pain. He also states that he has tinnitus which is persistent to date. He states that he had issues with mild neuropathy during treatment, which eventually resolved. At this point he states that he does not have any weight loss, any excessive night sweats or any unexplained fever. He denies any headaches, blurry vision or any focal areas of pain in any parts of the body. PAST MEDICAL HISTORY: 1. History of testicular cancer. 2. Chronic pain syndrome. 3. Gastroesophageal reflux disease. 4. Tinnitus. MEDICATIONS: Reviewed. ALLERGIES: Reviewed. FAMILY HISTORY: High cholesterol; his uncle has MS; his grandfather had stomach cancer. SOCIAL HISTORY: He denies smoking. He drinks 4-5 beers a day. 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 REVIEW OF SYSTEMS: A complete review of systems was performed and found to be negative other than pertinent positives mentioned in history of present illness. PHYSICAL EXAMINATION: VITAL SIGNS: His blood pressure is 129/88, pulse 97, respirations 18, temperature 98.6. GENERAL: Sitting comfortably. HEENT: Pupils equal, bilaterally reactive. Oral mucosa appears normal. NECK: No cervical or supraclavicular lymphadenopathy. HEART: S1, S2 normal. LUNGS: Bilaterally clear to auscultation. ABDOMEN: Soft, nontender. No masses palpable, no hepatosplenomegaly. SKIN: No rash. EXTREMITIES: No dependent edema. NEUROLOGIC: Alert, awake. LABORATORY DATA: His chemistry shows a normal creatinine and normal LFTs, which was done last month.His white count is 10, hemoglobin 16.1, platelet count 222,000. He had an MRI done 02/19/2014 which did not show any significant abnormality. He had an abdominal ultrasound done in 2006 which showed gal lbladder sludge without any evidence of recurrence. ECOG performance status 1. 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 He states that he completed treatment at [facility] and did not follow up with his oncologist after 2 years from treatment. There has been no evidence of disease recurrence so far. However, he has been dealing with chronic pain syndrome, excessive fatigue, body aches and tinnitus. I had a detailed discussion with this patient about the nature of disease. I discussed that it wouldbe important to know the exact pathology of the cancer and the type of chemotherapy he had. I have requested his records to be obtained from [facility]. I discussed the side effects of the fewcommonly used chemotherapeutic agents and I also discussed that given his long-term issues with chronic pain and fatigue and body aches, it would be reasonable that he establishes care with a cancer survivorship program. He agrees to that. At this point, as he is 15 years out of his initial diagnosis and treatment I do not think that surveillance imaging is required. However, I will review his records and make formal recommendations after that. In the meantime, I have ordered tumor markers which include LDH, alpha-fetoprotein and hCG. Iwill see him in 6 months for a physical assessment and further discussion. The patient had multiple questions and all of them were answered to his satisfaction. I appreciate the opportunity to participate in this patient's care. MARCELINO MELGOZA MD MT: [id number] Name: RONN HINKLE Account: [id number] : 1985 Visit Date: 02/28/2014 Document: [id number] cc: Carlos Chapman MD Rosanna Moreno RN - 02/28/2014 2:34 PM CDT Ronn Hinkle is a 28 year old male who presents for: Chief Complaint Patient presents with ??? Oncology Clinic Visit Testicular CA Initial Vitals: Temp(Src) 98.6 ??F (37 ??C) (Oral) Ht 1.7 m (5' 6.93) Wt 87.998 kg (194 lb) BMI 30.45 kg/m2 Estimated body mass index is 30.45 kg/(m^2) as calculated from the following: Height as of this encounter: 1.7 m (5' 6.93). Weight as of this encounter: 87.998 kg (194 lb).. Body surface area is 2.04 meters squared. BP completed using cuff size: large Moderate Pain (4) No LMP for male patient. Allergies and medications reviewed. Do you feel safe in your environment? Yes Medications: Medication refills not needed today. [facility] entered into [id number] [address] [facility] [address] & [id number] [address] Have you fallen two or more times in the past year? No Have you fallen and had an injury in the past year? No At risk for falls?No Patient instructed to ask for assistance, when needed, while in clinic Preventing Falls at Home; Simple Steps To Keep You Safe booklet for fall prevention available forpatient and family per request Comments: Here for new patient appointment. 8 minutes for nursing intake (face to face time) Rosanna Moreno, COMMERCIAL SALES REPRESENTATIVE PLAN: Next appointments: See patient instruction section Departure Mode: Ambulatory Accompanied by: self 0 minutes for nursing discharge (face to face time) Rosanna Moreno RN documented in this encounter Plan of Treatment Not on filedocumented as of this encounter Visit Diagnoses Diagnosis Testicular cancer, unspecified lateralit y - Primary documented in this encounter Care Teams Meeting Specialist Relationship Specialty Start Date End Date Carlos Chapman MD PCP - General Family Practice 02/06/14 04/29/19 documented as of this encounter
--- OUTSIDE RECORDS SUMMARY | 2022-03-31 17:00 | XMS_ITS | Encounter Summary ---
:1985 Author Organization [place] Address [facility] [place] [address] Care Team Providers Name Role Phone Alejandro Denise MD Primary Care Provider + Reason for Visit Reason Comments Back Pain RECHECK sinus infection - some impro vement - still coughing Encounter Details Date Type Department Care Team Description 06/27/2013 Office Visit [facility] Nathaniel Garg MD LBP (low back pain) Clinic [address] (Primary Dx) [address] [place] [phone] Social History Tobacco Use Types Packs/Day Years Used Date Smoking Tobacco: Never Smokeless Tobacco: Never Alcohol Use Standard Drinks/Week Comments Yes 0 (1 standard drink = 0.6 oz pure alcoho l) occ Sex Assigned at Date Recorded Not on file documented as of this encounter Last Filed Vital Signs Vital Sign Reading Time Taken Comments Blood Pressure 128/86 06/27/2013 11:21 AM CENTRAL SUPPLY AIDE Pulse 80 06/27/2013 11:21 AM CENTRAL SUPPLY AIDE Temperature 36.9 ??C (98.4 ??F) 06/27/2013 11:21 AM CENTRAL SUPPLY AIDE Respiratory Rate 20 06/27/2013 11:21 AM CENTRAL SUPPLY AIDE Oxygen Saturation 98% 06/27/2013 11:21 AM CENTRAL SUPPLY AIDE Inhaled Oxygen Concentration - - Weight 80.3 kg (177 lb) 06/27/2013 11:21 AM CENTRAL SUPPLY AIDE Height 167.6 cm (5' 6) 06/27/2013 11:21 AM CENTRAL SUPPLY AIDE Body Mass Index 28.57 06/27/2013 11:21 AM CENTRAL SUPPLY AIDE documented in this encounter Progress Notes Nathaniel Garg MD - 06/27/2013 11:17 AM CST SUBJECTIVE: Ronn Hinkle is a 27 year old male who presents to clinic today for the following health issues: Back Pain ?? Duration: 2 days Specific cause: turning/bending, work-related ?? Description (location/character/radiation): lower left ?? Intensity: moderate ?? Accompanying signs and symptoms (weakness/fever/urinary symptoms): numbness in the back of the thighs. Also radiate up to the shoulders and downo to the arms!. ?? History (similar episodes/surgery/injury): hx of back pain in the past. ?? Precipitating or alleviating factors:moving makes it worse. ?? Therapies tried and outcome: None While he was at work,He was wearing a backpack, when he slipped as he was blowing the snow, and he sprained his lower back. His pain ins mainly on the lower left back and some on the R side. Also feel numb and tingling on the back of the thighs. Problem list and histories reviewed & adjusted, as indicated. Additional history: as documented Patient Active Problem List Diagnosis ??? CARDIOVASCULAR SCREENING; LDL GOAL LESS THAN 160 ??? H/O testicular cancer Past Surgical History Procedure Date ??? Orchiectomy inguinal 1999 L testicular ca, with spinal met History Substance Use Topics ??? Smoking status: Never Smoker ??? Smokeless tobacco: Never Used ??? Alcohol Use: Yes Comment: occ Family History Problem Relation Age of Onset ??? Obesity Mother ??? Obesity Father ROS: C: NEGATIVE for fever, chills, change in weight : negative for dysuria, hematuria, decreased urinary stream, erectile dysfunction OBJECTIVE: BP 128/86 Pulse 80 Temp 98.4 ??F (36.9 ??C) (Oral) Resp 20 Ht 5' 6 (1.676 m) Wt 177 lb (80.287 kg) BMI 28.58 kg/m2 SpO2 98% Body mass index is 28.58 kg/(m^2). Patient appears to be in no pain, no antalgic gait noted. Lumbosacral spine area reveals no local tenderness or mass. ROM of the LS spine showed normal.extension nl flexionnl Straight leg raise is negative at 60 degrees on bilateral. L4 :toe walk nlpatellar reflux nl medial foot sensation nl L5: dorsiflexion of the big toe nl,mid foot sensation nl S1: heel walk nl, Roman reflex nl, lateral sensation of the foot nl Peripheral pulses are palpable. ASSESSMENT/PLAN: 724.2 LBP (low back pain) (primary encounter diagnosis) Comment: musculoskeletal. Plan: tiZANidine (ZANAFLEX) 4 MG tablet, naproxen (NAPROSYN) 500 MG tablet Follow up in 14 days if symptoms persist, sooner if symptoms worsen or new ones develops, pt may contact us over the phone for any questions or concerns. Nathaniel Garg MD, [facility] RAL SUPPLY AIDE documented in this encounter Nursing Notes 06/27/2013 11:30 AM CST >> MAI Summers Jun 27, 2013 11:26 AM Patient presents with: Back Pain RECHECK - sinus infection - some improvement - still coughing Initial BP 128/86 Pulse 80 Temp 98.4 ??F (36.9 ??C) (Oral) Resp 20 Ht 5' 6 (1.676 m) Wt 177 lb (80.287 kg) BMI 28.58 kg/m2 SpO2 98% Estimated Body mass index is 28.58 kg/(m^2) as calculated from the following: Height as of this encounter: 5' 6(1.676 m). Weight as of this encounter: 177 lb(80.287 kg).. BP completed using cuff size large Mai Liz CMA documented in this encounter Plan of Treatment Not on filedocumented as of this encounter Visit Diagnoses Diagnosis LBP (low back pain) - Primary Lumbago documented in this encounter Care Teams Hand Collator Relationship Specialty Start Date End Date Alejandro Denise MD PCP - General 09/24/01 02/05/14 [facility] [address] [place] [address] documented as of this encounter
--- OUTSIDE RECORDS SUMMARY | 2022-03-31 17:00 | XMS_ITS | Encounter Summary ---
:1985 Author Organization [place] Address [address] [place] [address] Care Team Providers Name Role Phone Carlos Chapman MD Primary Care Provider [phone] Reason for Visit Reason Comments Lab Result Notice go over recent labs and test s Encounter Details Date Type Department Care Team Description 03/09/2014 Office Visit [facility] Carlos Chapman ia (H) (Primary Dx); Clinic Anjel Spring MD Muscle stiffness; [place] [address] [facility], [address] [place] [address] [place], [place] [phone] (Wo rk) [phone] Social History Tobacco Use Types Packs/Day Years Used Date Smoking Tobacco: Never Smokeless Tobacco: Never Alcohol Use Standard Drinks/Week Comments Yes 0 (1 standard drink = 0.6 oz pure alcoho l) occ Sex Assigned at Date Recorded Not on file documented as of this encounter Last Filed Vital Signs Vital Sign Reading Time Taken Comments Blood Pressure 140/70 03/09/2014 3:32 PM CDT Pulse 88 03/09/2014 3:32 PM CDT Temperature 36.8 ??C (98.2 ??F) 03/09/2014 3:32 PM CDT Respiratory Rate 20 03/09/2014 3:32 PM CDT Oxygen Saturation - - Inhaled Oxygen Concentration - - Weight 90.7 kg (200 lb) 03/09/2014 3:32 PM CDT Height - - Body Mass Index 31.39 02/28/2014 2:35 PM CDT documented in this encounter Progress Notes Carlos Chapman MD - 03/09/2014 3:32 PM CDT SUBJECTIVE: Ronn Hinkle is a 28 year old male who presents to clinic today for the following health issues: Lab Result Notice Quickly reviewed labs from oncology visit last week. Has also been seen by neurology.Per pt oncologist confirms that sx are from chemo as child, known care home effects No change - still having pains, weakness and dizziness progressing through the day. Needing work note - unable to attend on a regular basis, but can't meet job requirement. HPI Review of Systems Constitutional: Negative. Gastrointestinal: Positive for nausea and abdominal pain. Negative for vomiting. Musculoskeletal: Positive for back pain and joint pain. Neurological: Positive for headaches. Physical Exam (725) Polymyalgia (primary encounter diagnosis) Comment: Plan: (728.9) Muscle stiffness Comment: Plan: Briefly reviewed onc results. Willin to fill out short term disability paperwork, to work w/SW on diability and logner term issues. Greater than 50% of this 15 minute visit spent in counseling and coordination of care. Topics discussed included: lab reviewes, community resources RTC in Carlos Chapman MD documented in this encounter Nursing Notes Saniya Goetz MA - 03/09/2014 3:35 PM CDT Chief Complaint Patient presents with ??? Lab Result Notice go over recent labs and tests Initial BP 140/70 Pulse 88 Temp(Src) 98.2 ??F (36.8 ??C) (Oral) Resp 20 Wt 200 lb (90.719 kg) BMI 31.39 kg/m2 Estimated body mass index is 31.39 kg/(m^2) as calculated from the following: Height as of 02/28/14: 5' 6.93 (1.7 m). Weight as of this encounter: 200 lb (90.719 kg). BP completed using cuff size: large Saniya Goetz MA documented in this encounter Plan of Treatment Not on filedocumented as of this encounter Visit Diagnoses Diagnosis Polymyalgia (H) - Primary Polymyalgia rheumatica Muscle stiffness Unspecified disorder of muscle, ligament , and fascia Insomnia Insomnia, unspecified documented in this encounter Care Teams Thread Trimmer Relationship Specialty Start Date End Date Carlos Chapman MD PCP - General Family Practice 02/06/14 04/29/19 documented as of this encounter
--- OUTSIDE RECORDS SUMMARY | 2022-03-31 17:00 | XMS_ITS | Encounter Summary ---
:1985 Author Organization [place] Address [address] [place] [address]. [place] [address] Care Team Providers Name Role Phone Carlos Chapman MD Primary Care Provider [phone] Reason for Referral Care Coordination - Closed Specialty Diagnoses / Procedures Referred By Contact Refer red To Contact Diagnoses [place] [address] [place] [address] Referral ID Status Reason Start Date Expiration Date Visits Requ ested Visits Authorized [id number] Closed 03/06/2014 09/02/2014 1 1 Reason for Visit Reason Comments Clinic Care Coordination - Initial clinic care coordin cecilia RN Care Team Encounter Details Date Type Department Care Team Description 03/06/2014 Care Coordination [facility] Carlos Chapman Care Care Coordination MD Swa Coordination - [address] [place] [address] CRIST[address] Nelson ( [facility] ); [place], [place] BRUCE [place] Care Team [id number] [phone] Social History Tobacco Use Types Packs/Day Years Used Date Smoking Tobacco: Never Smokeless Tobacco: Never Alcohol Use Standard Drinks/Week Comments Yes 0 (1 standard drink = 0.6 oz pure alcoho l) occ Sex Assigned at Date Recorded Not on file documented as of this encounter Progress Notes Ammy Olivera RN - 03/06/2014 10:38 AM CDT Phone call from patient Clinic Care Coordination Assessment Phone call transferred to CCRN from clinic staff PCP: Carlos Chapman Referral Source: pcp Utilization: Last pcp appt. 02/21/14, upcoming pcp appt 03/09/14 Health Maintenance Reviewed: Health Maintenance Due Topic Date Due ??? INFLUENZA VACCINE (SYSTEM ASSIGNED) 02/28/2014 Current Medical Health Concerns: Hx testicular cancer metastatic at age 14 - now having muscle pain/stiffness which is a side effect of the cancer treatment he received per patient. 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 This is very disturbing to him. He is not a lazy person he tries to work hard but at the end of the day he is in so much pain he is unable to even cook meals. Patient feels that he needs to apply for disability. Current Behavioral Health Concerns: At risk for depression Psychosocial: Lives by himself in [place], advanced care directives on file Gaps: Medical Health - Functional Resources Given: Disability [facility] Employment/Economic support - CCRN contact information - Emergency Care Plan Plan: 1. Patient will call [facility] and [facility] for guidance. 2. Patient will see Dr. Chapman as scheduled this week 3. Patient will call for further assistance - discussed Susan LANDIS and that he may benefit from talking with her as well Ammy Olivera Lead Etl Developer [facility] [phone] documented in this encounter Miscellaneous Notes Addendum Note - Ammy Olivera RN - 03/06/2014 10:57 AM CDT Addended by: AMMY OLIVERA on: 03/06/2014 10:57 AM Modules accepted: Orders documented in this encounter Plan of Treatment Not on filedocumented as of this encounter Visit Diagnoses Diagnosis Health Long-Term - Primary notesas part of the Health Long-Term wor kflow to capture care coordination pl documented in this encounter Care Teams Mining Engineering Technologist Relationship Specialty Start Date End Date Carlos Chapman MD PCP - General Family Practice 02/06/14 04/29/19 documented as of this encounter
--- OUTSIDE RECORDS SUMMARY | 2022-03-31 17:00 | XMS_ITS | Encounter Summary ---
:1985 Author Organization [place] Address [facility] [place] [address] Care Team Providers Name Role Phone Alejandro Denise MD Primary Care Provider + Reason for Visit Reason Onset Date Comments Nurse Advice Line 05/30/2013 bronchitis fu not im proved Encounter Details Date Type Department Care Team Description 05/30/2013 Telephone [facility] Alejandro Denise Advice Line Clinic [place] Akshat Constantino MD ([facility]) [facility], [address] [place], [place] [address] [address] [facility] [phone] [place], [place] [address] (Wo rk) Social History Tobacco Use Types Packs/Day Years Used Date Smoking Tobacco: Never Smokeless Tobacco: Never Alcohol Use Standard Drinks/Week Comments Yes 0 (1 standard drink = 0.6 oz pure alcoho l) Sex Assigned at Date Recorded Not on file documented as of this encounter Miscellaneous Notes Telephone Encounter - Alyssa Gamez - 05/30/2013 7:25 AM CST Clinic Action Needed:none FNA Triage Call Presenting Problem:I was seen and given a Zpak for bronchitis. The cough and cold Sx never really went away. I cough so hard that I see stars. Describes nasal congestion and mucus production. 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 Alyssa Gamez RN [place] [facility] EGE SERVICE OFFICER documented in this encounter Plan of Treatment Not on filedocumented as of this encounter Visit Diagnoses Not on filedocumented in this encounter Care Teams Hitcher Relationship Specialty Start Date End Date Alejandro Denise MD PCP - General 09/24/01 02/05/14 [facility] [address] [place] [address] documented as of this encounter
--- OUTSIDE RECORDS SUMMARY | 2022-03-31 17:00 | XMS_ITS | Encounter Summary ---
:1985 Author Organization [place] Address [address] [place] [address]. [place] [address] Care Team Providers Name Role Phone Carlos Chapman MD Primary Care Provider [phone] Reason for Visit Reason Onset Date Comments Results 04/18/2014 Encounter Details Date Type Department Care Team Description 04/18/2014 Telephone [facility] Milagro Weiss, SAND DIGGER MRI ASSISTANT Results [facility] [address] [place] [address] [place] [address] [address] [facility] [address] [place] [phone] Social History Tobacco Use Types Packs/Day Years Used Date Smoking Tobacco: Never Smokeless Tobacco: Never Alcohol Use Standard Drinks/Week Comments Yes 0 (1 standard drink = 0.6 oz pure alcoho l) occ Sex Assigned at Date Recorded Not on file documented as of this encounter Miscellaneous Notes Telephone Encounter - Ching Weiss NP - 04/18/2014 3:23 PM CST Called pt to give prelim PFT results. Overall looked pretty good. Diffusion at the lower limits of normal. Likely does not have toxicity post Bleomycin. Will call him with final interpretation if this differs. Also received audiology report. If pt is interested in pursuing amplification, I could make referral to ENT for clearance. Asked pt to call me if he would like this referral. Ching Weiss MSN, RN, CPNP-AC, CPON Department of Pediatrics Division of Hematology/Oncology IFIED PHYSICIAN ASSISTANT documented in this encounter Plan of Treatment Not on filedocumented as of this encounter Visit Diagnoses Not on filedocumented in this encounter Care Teams Campus Monitor Relationship Specialty Start Date End Date Carlos Chapman MD PCP - General Family Practice 02/06/14 04/29/19 documented as of this encounter
--- OUTSIDE RECORDS SUMMARY | 2022-03-31 17:00 | XMS_ITS | Encounter Summary ---
:1985 Author Organization [place] Address [facility] [place] [address] Care Team Providers Name Role Phone Carlos Chapman MD Primary Care Provider [phone] Reason for Visit Reason Onset Date Comments Nurse Advice Line 02/12/2014 lab result Encounter Details Date Type Department Care Team Description 02/12/2014 Telephone [facility] Carlos Osorio Nurse Adv ice Line (lab Clinic Anjel Spring MD result) [address] [place] [address] [place], [place] [phone] (Wo rk) [address] [phone] Social History Tobacco Use Types Packs/Day Years Used Date Smoking Tobacco: Never Smokeless Tobacco: Never Alcohol Use Standard Drinks/Week Comments Yes 0 (1 standard drink = 0.6 oz pure alcoho l) occ Sex Assigned at Date Recorded Not on file documented as of this encounter Miscellaneous Notes Telephone Encounter - Margareth Devries RN - 02/12/2014 4:01 PM CDT Patient notified and appointment scheduled for Wednesday02/14/2014 at 7:00am. Margareth Devries RN Telephone Encounter - Carlos Chapman MD - 02/12/2014 11:34 AM CDT Advise pt to f/u to review labs in detail, discuss ongoing work up. Carlos Chapman MD Telephone Encounter - Jayne Webb RN - 02/12/2014 9:48 AM CDT Pt calls, discussed recent lab results from [facility], pt extremely frustrated due to chronic fatigue issues since treated for cancer years ago, pt has tried dietary changes, would like [facility] to brainstorm, not sure if just from chemo and this is his normal, pt felt better this weekend after couple days off of work but now feeling fatigued again today, wonders about thyroid or allergy panel ?? Work up, routed to [facility], inform pt of plan at [phone] may lmovm Jayne Webb RN, BSN Message handled by Nurse Triage. documented in this encounter Plan of Treatment Not on filedocumented as of this encounter Visit Diagnoses Not on filedocumented in this encounter Care Teams Flipping Machine Operator Relationship Specialty Start Date End Date Carlos Chapman MD PCP - General Family Practice 02/06/14 04/29/19 documented as of this encounter
--- OUTSIDE RECORDS SUMMARY | 2022-03-31 17:00 | XMS_ITS | Encounter Summary ---
:1985 Author Organization [place] Address [address] [facility] [address] [place] [address] Care Team Providers Name Role Phone Alejandro Denise MD Primary Care Provider + Reason for Visit Reason Comments Cough was in on 05/02 treated for b ronchitis not improving Encounter Details Date Type Department Care Team Description 05/30/2013 Office Visit [facility] Carlos Chapman Acute sin usitis with Clinic Anjel Spring MD symptoms > 10 days [place] [address], [address] [place] [address] [place], [place] [phone] (Wo rk) [address] [phone] Social History Tobacco Use Types Packs/Day Years Used Date Smoking Tobacco: Never Smokeless Tobacco: Never Alcohol Use Standard Drinks/Week Comments Yes 0 (1 standard drink = 0.6 oz pure alcoho l) Sex Assigned at Date Recorded Not on file documented as of this encounter Last Filed Vital Signs Vital Sign Reading Time Taken Comments Blood Pressure 122/80 05/30/2013 7:37 AM VALUER Pulse 67 05/30/2013 7:37 AM VALUER Temperature 36.9 ??C (98.4 ??F) 05/30/2013 7:37 AM VALUER Respiratory Rate 18 05/30/2013 7:37 AM VALUER Oxygen Saturation 99% 05/30/2013 7:37 AM VALUER Inhaled Oxygen Concentration - - Weight 85.7 kg (189 lb) 05/30/2013 7:37 AM VALUER Height 167.6 cm (5' 6) 05/30/2013 7:37 AM VALUER Body Mass Index 30.51 05/30/2013 7:37 AM VALUER documented in this encounter Progress Notes Carlos Chapman MD - 05/30/2013 8:02 AM CST HPI Lots of coughing - seen 05/02/13 and treated for bronchitis. Seemed to be getting better, but cold air is huge trigger for severe coughing. Shortness of breath while outside. Works essentially outside. No wheezing. Does have shortness of breath. Feeling fatigued, not sleeping well. Doesn't think he's been having fever. Having some diarrhea, some post tussive emesis. Some facial pressure. Delsym doesn't seem to help. No regular meds. Does not smoke. Review of Systems Constitutional: Positive for malaise/fatigue. Negative for fever. HENT: Positive for congestion. Respiratory: Positive for cough and shortness of breath. Negative for wheezing. Gastrointestinal: Positive for vomiting. Physical Exam Nursing note and vitals reviewed. Constitutional: He is well-developed, well-nourished, and in no distress. No distress. HENT: Right Ear: Tympanic membrane, external ear and ear canal normal. Left Ear: Tympanic membrane, external ear and ear canal normal. Mouth/Throat: Oropharynx is clear and moist. No oropharyngeal exudate. Eyes: Conjunctivae normal are normal. Neck: Neck supple. Cardiovascular: Normal rate, regular rhythm and normal heart sounds. Pulmonary/Chest: Effort normal and breath sounds normal. Lymphadenopathy: He has no cervical adenopathy. Skin: Skin is warm and dry. No rash noted. 461.9 Acute sinusitis with symptoms > 10 days (primary encounter diagnosis) Comment: hsitroy sound much more like sinus infection Plan: amoxicillin-clavulanate (AUGMENTIN) 500-125 MG per tablet, guaiFENesin-codeine (ROBITUSSIN AC) 100-10 MG/5ML SOLN RTC in 2w Carlos Chapman MD ER documented in this encounter Nursing Notes 05/30/2013 8:00 AM CST >> KULDEEP Shepard May 30, 2013 7:56 AM Patient presents with: Cough - was in on 05/02 treated for bronchitis not improving Initial BP 122/80 Pulse 67 Temp 98.4 ??F (36.9 ??C) (Oral) Resp 18 Ht 5' 6 (1.676 m) Wt 189 lb (85.73 kg) BMI 30.52 kg/m2 SpO2 99%BMIHIS@ BP completed using cuff size regular. Candy Cedeño, Trimming Inspector documented in this encounter Plan of Treatment Not on filedocumented as of this encounter Visit Diagnoses Diagnosis Acute sinusitis with symptoms > 10 days - Primary Acute sinusitis, unspecified documented in this encounter Care Teams Inspector Radar And Electronics Relationship Specialty Start Date End Date Alejandro Denise MD PCP - General 09/24/01 02/05/14 [facility] [address] [place] [address] documented as of this encounter
--- OUTSIDE RECORDS SUMMARY | 2022-03-31 17:00 | XMS_ITS | Encounter Summary ---
:1985 Author Organization [place] Address [address] [place] [address] Care Team Providers Name Role Phone Carlos Chapman MD Primary Care Provider [phone] Reason for Visit Reason Onset Date Comments Call To Schedule Appointment 03/01/2014 Encounter Details Date Type Department Care Team Description 03/01/2014 Telephone [facility], Call To [facility] Fozia Green PA-C Appointment [address], [place] [address] [facility] [place] [address] Social History Tobacco Use Types Packs/Day Years Used Date Smoking Tobacco: Never Smokeless Tobacco: Never Alcohol Use Standard Drinks/Week Comments Yes 0 (1 standard drink = 0.6 oz pure alcoho l) occ Sex Assigned at Date Recorded Not on file documented as of this encounter Miscellaneous Notes Telephone Encounter - Norma Shaikh RN - 03/05/2014 9:50 AM CDT Received phone call from the [facility] the [facility] stating that they only follow patients until the age of 22. Patient was contacted from the [facility] for the hedge fund accountant survivorship program and has appointment 03/16/14 with Ching Weiss. Norma Shaikh RN Telephone Encounter - Hernan Mondragon RN - 03/02/2014 8:32 AM CDT Patient needs to see someone in the pediatric survivorship program due to the age of his initial diagnosis (age 14). Left a message with Jaylyn, patient medical appointment scheduler at the [facility] ([facility]) [phone] to call the patient to schedule and to call us back to confirm she received the info. Spoke with the patient and relayed all of this info to him. He understands and will await a call from Jaylyn early next week as she doesn't work today. Will leave phone call open until we hear back from Jaylyn that this is being taken care of or if we need to facilitate an appointment somewhere else. Telephone Encounter - Keyanna Salcedo RN - 03/01/2014 3:21 PM CDT Call received from Norma, she is unable to see pt tomorrow, no time to obtain records/prep. Called pt to reschedule, he is having a lot of pain, fatigue, muscle issues, he doesn't want to waituntmarch to see Norma. Will discuss with Norma tomorrow about when he can schedule at [facility], and call pt back. Pt agreeable to plan. Keyanna Salcedo RN documented in this encounter Plan of Treatment Not on filedocumented as of this encounter Visit Diagnoses Not on filedocumented in this encounter Care Teams Synthetic Plasterer Relationship Specialty Start Date End Date Carlos Chapman MD PCP - General Family Practice 02/06/14 04/29/19 documented as of this encounter
--- OUTSIDE RECORDS SUMMARY | 2022-03-31 17:00 | XMS_ITS | Encounter Summary ---
:1985 Author Organization [place] Address [address] [facility] [place] [address] Care Team Providers Name Role Phone Carlos Chapman MD Primary Care Provider [phone] Reason for Visit Reason Onset Date Comments Patient Request for Note/Letter 04/10/2014 Remove w ork restrictions Encounter Details Date Type Department Care Team Description 04/10/2014 [facility] R equest for Clinic Anjel Spring MD Note/Letter (Remove [phone] [facility], [address] [place] [address] [address] GEE work restrictions) [address] [place] [address] [place], [place] [phone] (Wo rk) [address] [phone] Social History Tobacco Use Types Packs/Day Years Used Date Smoking Tobacco: Never Smokeless Tobacco: Never Alcohol Use Standard Drinks/Week Comments Yes 0 (1 standard drink = 0.6 oz pure alcoho l) occ Sex Assigned at Date Recorded Not on file documented as of this encounter Miscellaneous Notes Telephone Encounter - Margareth Devries RN - 04/10/2014 2:20 PM CST Patient notified. Margareth Devries RN UTIVE MEETING MANAGER Telephone Encounter - Carlos Chapman MD - 04/10/2014 1:15 PM EXECUTIVE MEETING MANAGER Letter signed Carlos Chapman MD UTIVE MEETING MANAGER Telephone Encounter - Margareth Devries RN - 04/10/2014 11:58 AM CST Call patient when ready to machine pecan picker. [phone] UTIVE MEETING MANAGER Telephone Encounter - Maragreth Devries RN - 04/10/2014 11:56 AM CST Patient calling requesting a note lifting his current work restrictions. Patient applying for unemployment and needs to have no restrictions. Note written. Please review. Margareth Devries RN UTIVE MEETING MANAGER documented in this encounter Plan of Treatment Not on filedocumented as of this encounter Visit Diagnoses Not on filedocumented in this encounter Care Teams Signal Processing Engineer Relationship Specialty Start Date End Date Carlos Chapman MD PCP - General Family Practice 02/06/14 04/29/19 documented as of this encounter
--- OUTSIDE RECORDS SUMMARY | 2022-03-31 17:00 | XMS_ITS | Encounter Summary ---
:1985 Author Organization [place] Address [address] [facility] [place] [address] Care Team Providers Name Role Phone Carlos Chapman MD Primary Care Provider [phone] Reason for Visit Reason Onset Date Comments Muscle Pain 10/18/2014 Muscle/joint pain al l over Encounter Details Date Type Department Care Team Description 10/18/2014 Telephone [facility] Carlos Chapman Pa in Clinic Anjel Spring MD (Muscle/joint pain all [facility], [address] [place] [address]) [address] [place] [address] [place], [place] [phone] (Wo rk) [address] [phone] Social History Tobacco Use Types Packs/Day Years Used Date Smoking Tobacco: Never Smokeless Tobacco: Never Alcohol Use Standard Drinks/Week Comments Yes 0 (1 standard drink = 0.6 oz pure alcoho l) occ Sex Assigned at Date Recorded Not on file documented as of this encounter Miscellaneous Notes Telephone Encounter - Carlos Chapman MD - 10/18/2014 12:50 PM CDT Starting on trial of gbapentin. Start with 300mg TID, may self titrate to a max dose of 900mg TID. Carlos Chapman MD Telephone Encounter - Margareth Devries RN - 10/18/2014 12:12 PM CDT Patient calling stating he still currently without insurance and unable to schedule an office visit to be evaluated. He states that he has been taking the Baclofen 10mg at 1 1/2 tablets 3 times a day for the last 2 weeks and is still not noticing much of a difference or relief of his symptoms. He continues to complain of muscle/jount pain mainly in the right leg, feet and ankles, hands and forearms and wrist. He notices weakness or what he calls muscle fatigue. Patient wondering what you would advise. Continue taking medication? Any other suggestions? 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
--- OUTSIDE RECORDS SUMMARY | 2022-03-31 17:01 | XMS_ITS | Encounter Summary ---
:1985 Author Organization [place] Address [facility] [place] [address] Care Team Providers Name Role Phone Alejandro Denise MD Primary Care Provider + Encounter Details Date Type Department Care Team Description 02/17/2005 Therapy Visit [place] for Buck Ma iamBRACH IAL NEURITIS NOS; Athletic Medicine - PT iamLUMB/LUMBOSAC DISC DEGEN [place] Physical [address] [place] [address] [place] [address] [address] [place], [place] (Work) [address] [phone] Social History Tobacco Use Types Packs/Day Years Used Date Smoking Tobacco: Never Alcohol Use Standard Drinks/Week Comments Not Asked 0 (1 standard drink = 0.6 oz pure alcoho l) Sex Assigned at Date Recorded Not on file documented as of this encounter Progress Notes Buck Ma - 02/17/2005 4:53 PM CDT Please refer to the daily flowsheet for treatment today. 

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
--- OUTSIDE RECORDS SUMMARY | 2022-03-31 17:01 | XMS_ITS | Encounter Summary ---
:1984 Author Organization [place] Address [facility]ly [facility], [facility] [place] [address] Care Team Providers Name Role Phone Alejandro Denise MD Primary Care Provider + Encounter Details Date Type Department Care Team Description 02/12/2005 Therapy Visit [place] for Athletic Mariana Hawkins, iamBRACHIAL NEURITIS NOS; Medicine - Apple PT iamLUMB/LUMBOSAC DISC DEGEN [place] [facility] Therapy [address] Chris [place] [address] [place], [place] [address] [phone] Social History Tobacco Use Types Packs/Day Years Used Date Smoking Tobacco: Never Alcohol Use Standard Drinks/Week Comments Not Asked 0 (1 standard drink = 0.6 oz pure alcoho l) Sex Assigned at Date Recorded Not on file documented as of this encounter Progress Notes Mariana Hawkins - 02/12/2005 9:41 AM CDT Please refer to the daily flowsheet for treatment today. 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
--- OUTSIDE RECORDS SUMMARY | 2022-03-31 17:01 | XMS_ITS | Encounter Summary ---
:1984 Author Organization [place] Address [facility] [place] [address] Care Team Providers Name Role Phone Alejandro Denise MD Primary Care Provider + Encounter Details Date Type Department Care Team Description 02/19/2005 Therapy Visit [place] for Athletic Mariana Hawkins, vickimBRACHIAL NEURITIS NOS; Medicine - Apple PT iamLUMB/LUMBOSAC DISC DEGEN [place] Physical [facility] Therapy [address] Chris [place] [address] [place], [place] [address] [phone] Social History Tobacco Use Types Packs/Day Years Used Date Smoking Tobacco: Never Alcohol Use Standard Drinks/Week Comments Not Asked 0 (1 standard drink = 0.6 oz pure alcoho l) Sex Assigned at Date Recorded Not on file documented as of this encounter Progress Notes Mariana Hawkins - 02/20/2005 9:15 AM CDT Please refer to the daily flowsheet for treatment today. 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
--- OUTSIDE RECORDS SUMMARY | 2022-03-31 17:01 | XMS_ITS | Encounter Summary ---
:1984 Author Organization [place] Address [address] [place] [address]. [place] [address] Care Team Providers Name Role Phone Alejandro Denise MD Primary Care Provider + Encounter Details Date Type Department Care Team Description 07/16/2008 Therapy Visit [place] for Dougie Noriega, PT Pain in Joint, Ankle Athletic Medicine - [place] and Foot (Primary Dx) [place] [facility] [address] Therapy [place] [address] [address] [place], [place] [address] [place], [place] [phone] [address] (Work) [phone] Social History Tobacco Use Types Packs/Day Years Used Date Smoking Tobacco: Never Alcohol Use Standard Drinks/Week Comments Not Asked 0 (1 standard drink = 0.6 oz pure alcoho l) Sex Assigned at Date Recorded Not on file documented as of this encounter Progress Notes Dougie Noriega - 09/05/2008 1:32 PM CDT Discharge due to patient did not return for further Physical Therapy visits. Dougie Noriega - 07/16/2008 8:47 AM CST Please refer to the daily flowsheet for treatment today and total treatment time. Does this patient have Medicare or Medicaid as primary or secondary insurance? 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 documented in this encounter Plan of Treatment Not on filedocumented as of this encounter Procedures Procedure Name Priority Date/Time Associated Diagnosis Comme nts ZC THERAPEUTIC Routine 07/16/2008 8:46 AM Pain in Joint, Ankl e ACTIVITIES PIECE WORK INSPECTOR and Foot ZZC THERAPEUTIC Routine 07/16/2008 8:46 AM Pain in Joint, Ankl e EXERCISES PIECE WORK INSPECTOR and Foot Z ELECTRIC CURRENT Routine 07/16/2008 8:46 AM Pain in Joint, Ankle THERAPY PIECE WORK INSPECTOR and Foot documented in this encounter Visit Diagnoses Diagnosis Pain in joint, ankle and foot - Primary documented in this encounter Care Teams Production Support Consultant Relationship Specialty Start Date End Date Alejandro Denise MD PCP - General 09/24/01 02/05/14 [facility] [address] [place] [address] documented as of this encounter
--- OUTSIDE RECORDS SUMMARY | 2022-03-31 17:01 | XMS_ITS | Encounter Summary ---
:1984 Author Organization [place] Address [address] [place] [address] Care Team Providers Name Role Phone Alejandro Denise MD Primary Care Provider + Encounter Details Date Type Department Care Team Description 04/08/2005 Therapy Visit [place] for Kacie Rodas iamBRACHIAL NEURITIS NOS; Athletic Medicine - [address] iamLUM B/LUMBOSAC DISC DEGEN [place] [address] [facility] [address] [place], [place] (Work) [address] Social History Tobacco Use Types Packs/Day Years Used Date Smoking Tobacco: Never Alcohol Use Standard Drinks/Week Comments Not Asked 0 (1 standard drink = 0.6 oz pure alcoho l) Sex Assigned at Date Recorded Not on file documented as of this encounter Progress Notes Kacie Rodas - 04/08/2005 5:54 PM CST Please refer to the discharge evaluation. L MAIL CARRIER documented in this encounter Plan of Treatment Not on filedocumented as of this encounter Procedures Procedure Name Priority Date/Time Associated Diagnosis Comme nts [facility] MANUAL THER Routine 04/08/2005 5:55 PM iamBRACHIAL NEURITI S TECH,1+REGIONS,EA 15 RURAL MAIL CARRIER NOS MIN iamLUMB/LUMBOSAC DISC DEGEN ZZC THERAPEUTIC Routine 04/08/2005 5:55 PM iamBRACHIAL NEURITI S EXERCISES RURAL MAIL CARRIER NOS iamLUMB/LUMBOSAC DISC DEGEN documented in this encounter Visit Diagnoses Diagnosis iamBRACHIAL NEURITIS NOS Brachial neuritis or radiculitis nos iamLUMB/LUMBOSAC DISC DEGEN Degeneration of lumbar or lumbosacral in tervertebral disc documented in this encounter Care Teams Defence Intelligence Analyst Relationship Specialty Start Date End Date Alejandro Denise MD PCP - General 09/24/01 02/05/14 [facility] [address] [place] [address] documented as of this encounter
--- OUTSIDE RECORDS SUMMARY | 2022-03-31 17:01 | XMS_ITS | Encounter Summary ---
:1984 Author Organization [place] Address [facility] [place] [address] Care Team Providers Name Role Phone Alejandro Denise MD Primary Care Provider + Reason for Visit Reason Comments Cough possible bronchitis Encounter Details Date Type Department Care Team Description 05/02/[address] [facility] Carlos Chapman Bronchiti s (Primary Clinic [place] MD Saw Dx) [address] [address] [facility], [address] [place] [address] [place], [place] [phone] (Wo rk) [address] [phone] Social History Tobacco Use Types Packs/Day Years Used Date Smoking Tobacco: Never Smokeless Tobacco: Never Alcohol Use Standard Drinks/Week Comments Yes 0 (1 standard drink = 0.6 oz pure alcoho l) Sex Assigned at Date Recorded Not on file documented as of this encounter Last Filed Vital Signs Vital Sign Reading Time Taken Comments Blood Pressure 116/84 05/02/2013 7:00 AM CONTINUOUS WELD PIPE MILL SUPERVISOR Pulse 69 05/02/2013 7:00 AM CONTINUOUS WELD PIPE MILL SUPERVISOR Temperature 36.9 ??C (98.4 ??F) 05/02/2013 7:00 AM CONTINUOUS WELD PIPE MILL SUPERVISOR Respiratory Rate 16 05/02/2013 7:00 AM CONTINUOUS WELD PIPE MILL SUPERVISOR Oxygen Saturation 96% 05/02/2013 7:00 AM CONTINUOUS WELD PIPE MILL SUPERVISOR Inhaled Oxygen Concentration - - Weight 85.3 kg (188 lb) 05/02/2013 7:00 AM CONTINUOUS WELD PIPE MILL SUPERVISOR Height 167.6 cm (5' 6) 05/02/2013 7:00 AM CONTINUOUS WELD PIPE MILL SUPERVISOR Body Mass Index 30.34 05/02/2013 7:00 AM CONTINUOUS WELD PIPE MILL SUPERVISOR documented in this encounter Progress Notes Carlos Chapman MD - 05/02/2013 7:19 AM CST HPI SUBJECTIVE: Ronn Hinkle is a 27 year old male who presents to clinic today for the following health issues: Acute Illness Acute illness concerns?- possible bronchitis Onset: x2 weeks ?? Fever: no ?? Chills/Sweats: no ?? Headache (location?): YES ?? Sinus Pressure:YES ?? Conjunctivitis: no ?? Ear Pain: no ?? Rhinorrhea: YES ?? Congestion: YES ?? Sore Throat: no ?? Cough: YES ?? Wheeze: YES ?? Decreased Appetite: YES ?? Nausea: YES ?? Vomiting: no ?? Diarrhea: no ?? Dysuria/Freq.: no ?? Fatigue/Achiness: YES ?? Sick/Strep Exposure: YES [facility]rapies [facility] and [facility] Two weeks of cough - seems to be getting worse over the last several days, but feeling somewhat better today. Coughing so hard he's getting dizzy. Very productive cough. Feeling short of breath, especially with effort. 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 No fever. Does have nasal congestion, sinus pressure, POPE. NO ear pain, stomach sx. Delsym not helpful. Younger son recently had RSV, older child with PNA. Step kids both have had uri/flu. Review of Systems Constitutional: Positive for malaise/fatigue. Negative for fever. HENT: Positive for congestion. Negative for ear pain and sore throat. Respiratory: Positive for cough, shortness of breath and wheezing. Gastrointestinal: Negative. Neurological: Positive for headaches. Physical Exam Nursing note and vitals reviewed. [...] rhythm and normal heart sounds. Pulmonary/Chest: Effort normal. He has rhonchi. Lymphadenopathy: He has no cervical adenopathy. Skin: Skin is warm and dry. No rash noted. 490 Bronchitis (primary encounter diagnosis) Comment: declined codeine Plan: azithromycin (ZITHROMAX) 250 MG tablet RTC in 1w Carlos Chapman MD INUOUS WELD PIPE MILL SUPERVISOR documented in this encounter Nursing Notes 05/02/2013 8:20 AM CST >> WINTER ROHINI Summers May 02, 2013 8:34 AM Patient presents with: Cough - possible bronchitis Initial BP 116/84 Pulse 69 Temp 98.4 ??F (36.9 ??C) (Oral) Resp 16 Ht 5' 6 (1.676 m) Wt 188 lb (85.276 kg) BMI 30.34 kg/m2 SpO2 96% Estimated Body mass index is 30.34 kg/(m^2) as calculated from the following: Height as of this encounter: 5' 6(1.676 m). Weight as of this encounter: 188 lb(85.276 kg). BP completed using cuff size: large sma Rosalia documented in this encounter Plan of Treatment Not on filedocumented as of this encounter Visit Diagnoses Diagnosis Bronchitis - Primary Bronchitis, not specified as acute or ch ronic documented in this encounter Care Teams Technical Instructor Course Developer Relationship Specialty Start Date End Date Alejandro Denise MD PCP - General 09/24/01 02/05/14 [facility] [address] [place] [address] documented as of this encounter
--- OUTSIDE RECORDS SUMMARY | 2022-03-31 17:01 | XMS_ITS | Encounter Summary ---
:1984 Author Organization [facility] Address [address] [place] [address] Care Team Providers Name Role Phone Alejandro Denise MD Primary Care Provider + Encounter Details Date Type Department Care Team Description 03/12/2005 Therapy Visit [place] for Kacie Rodas iamBRACHIAL NEURITIS NOS; Athletic Medicine - [address] iamLUM B/LUMBOSAC DISC DEGEN [place] [address] [facility] [address] [place], [place] (Work) [address] Social History Tobacco Use Types Packs/Day Years Used Date Smoking Tobacco: Never Alcohol Use Standard Drinks/Week Comments Not Asked 0 (1 standard drink = 0.6 oz pure alcoho l) Sex Assigned at Date Recorded Not on file documented as of this encounter Progress Notes Kacie Rodas - 03/12/2005 6:05 PM CDT Please refer to the daily flowsheet for treatment today. documented in this encounter Plan of Treatment Not on filedocumented as of this encounter Procedures Procedure Name Priority Date/Time Associated Diagnosis Comme nts ZC MANUAL THER Routine 03/12/2005 6:06 PM iamBRACHIAL NEURITI S TECH,1+REGIONS,EA 15 CDT NOS MIN iamLUMB/LUMBOSAC DISC DEGEN ZZC THERAPEUTIC Routine 03/12/2005 6:06 PM iamBRACHIAL NEURITI S EXERCISES CDT NOS iamLUMB/LUMBOSAC DISC DEGEN documented in this encounter Visit Diagnoses Diagnosis iamBRACHIAL NEURITIS NOS Brachial neuritis or radiculitis nos iamLUMB/LUMBOSAC DISC DEGEN Degeneration of lumbar or lumbosacral in tervertebral disc documented in this encounter Care Teams Bad Credit Collector Relationship Specialty Start Date End Date Alejandro Denise MD PCP - General 09/24/01 02/05/14 [facility] [address] [place] [address] documented as of this encounter
--- OUTSIDE RECORDS SUMMARY | 2022-03-31 17:01 | XMS_ITS | Encounter Summary ---
:1984 Author Organization [place] Address [facility] [place] [address] Care Team Providers Name Role Phone Alejandro Denise MD Primary Care Provider + Encounter Details Date Type Department Care Team Description 02/10/2005 Therapy Visit [place] for Buck Ma, iamLUMB/ LUMBOSAC DISC DEGEN; Athletic Medicine - PT iamBRACHIAL NEURITIS NOS [place] [facility] [address] [place] [address] [facility] Chris [address] [place], [place] (Work) [address] [phone] Social History Tobacco Use Types Packs/Day Years Used Date Smoking Tobacco: Never Alcohol Use Standard Drinks/Week Comments Not Asked 0 (1 standard drink = 0.6 oz pure alcoho l) Sex Assigned at Date Recorded Not on file documented as of this encounter Progress Notes Buck Ma - 02/10/2005 1:21 PM CDT Please refer to the daily flowsheet for treatment today. Initial evaluation was completed. documented in this encounter Plan of Treatment Not on filedocumented as of this encounter Procedures Procedure Name Priority Date/Time Associated Diagnosis Comme nts ZZC THERAPEUTIC Routine 02/10/2005 1:23 PM iamLUMB/LUMBOSAC DI SC EXERCISES CDT DEGEN iamBRACHIAL NEURITIS NOS [facility] ELECTRIC STIMULATION Routine 02/10/2005 1:23 PM iamLUMB/ALYSA MBOSAC DISC THERAPY CDT DEGEN iamBRACHIAL NEURITIS NOS documented in this encounter Visit Diagnoses Diagnosis iamLUMB/LUMBOSAC DISC DEGEN Degeneration of lumbar or lumbosacral in tervertebral disc iamBRACHIAL NEURITIS NOS Brachial neuritis or radiculitis nos documented in this encounter Care Teams Water Supply Engineer Relationship Specialty Start Date End Date Alejandro Denise MD PCP - General 09/24/01 02/05/14 [facility] AESTHETIC WELLNESS [address] [place] [address] documented as of this encounter
--- OUTSIDE RECORDS SUMMARY | 2022-03-31 17:01 | XMS_ITS | Encounter Summary ---
:1984 Author Organization [place] Address [address] [place] [address]. [place] [address] Care Team Providers Name Role Phone Alejandro Denise MD Primary Care Provider + Encounter Details Date Type Department Care Team Description 04/01/2005 Therapy Visit [place] for Athletic Traci Espinoza RACHIAL NEURITIS NOS; Medicine - Carmita Pantoja, PT iamLUMB/LUMBOSAC DISC DEGEN [place] [facility] [place] Therapy [address] Chris [place] [address] [address] [place], [place] [address] Social History Tobacco Use Types Packs/Day Years Used Date Smoking Tobacco: Never Alcohol Use Standard Drinks/Week Comments Not Asked 0 (1 standard drink = 0.6 oz pure alcoho l) Sex Assigned at Date Recorded Not on file documented as of this encounter Progress Notes Scarlett Espinoza - 04/01/2005 5:13 PM CST Please refer to the daily flowsheet for treatment today. 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 AGENT documented in this encounter Plan of Treatment Not on filedocumented as of this encounter Procedures Procedure Name Priority Date/Time Associated Diagnosis Comme nts ZZC MANUAL THER Routine 04/01/2005 5:29 PM iamBRACHIAL NEURITI S TECH,1+REGIONS,EA 15 AGRI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 AGENT NOS MIN iamLUMB/LUMBOSAC DISC DEGEN ZZC THERAPEUTIC Routine 04/01/2005 5:29 PM iamBRACHIAL NEURITI S ACTIVITIES AGRI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 AGENT NOS iamLUMB/LUMBOSAC DISC DEGEN [facility] THERAPEUTIC Routine 04/01/2005 5:29 PM iamBRACHIAL NEURITI S EXERCISES AGRI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 AGENT NOS iamLUMB/LUMBOSAC DISC DEGEN documented in this encounter Visit Diagnoses Diagnosis iamBRACHIAL NEURITIS NOS Brachial neuritis or radiculitis nos iamLUMB/LUMBOSAC DISC DEGEN Degeneration of lumbar or lumbosacral in tervertebral disc documented in this encounter Care Teams Chick Room Supervisor Relationship Specialty Start Date End Date Alejandro Denise MD PCP - General 09/24/01 02/05/14 [facility] [address] [place] [address] documented as of this encounter
--- OUTSIDE RECORDS SUMMARY | 2022-03-31 17:01 | XMS_ITS | Encounter Summary ---
:1984 Author Organization [place] Address [address] [place] [address]. [place] [address] Care Team Providers Name Role Phone Alejandro Denise MD Primary Care Provider + Encounter Details Date Type Department Care Team Description 03/23/2005 Therapy Visit [place] for Athletic Julio Gabriel i amBRACHIAL NEURITIS NOS; Medicine - Carmita W, PT iamLUMB/LUMBOSAC DISC DEGEN [place] [facility] [address] [address] Therapy [facility] [address] [address] [place], [place] [address] [place], [place] [address] [phone] Social History Tobacco Use Types Packs/Day Years Used Date Smoking Tobacco: Never Alcohol Use Standard Drinks/Week Comments Not Asked 0 (1 standard drink = 0.6 oz pure alcoho l) Sex Assigned at Date Recorded Not on file documented as of this encounter Progress Notes Julio Gabriel - 03/23/2005 5:01 PM CDT Please refer to the daily flowsheet for treatment today. documented in this encounter Plan of Treatment Not on filedocumented as of this encounter Procedures Procedure Name Priority Date/Time Associated Diagnosis Comme nts ZZC MANUAL THER Routine 03/23/2005 5:01 PM iamBRACHIAL NEURITI S TECH,1+REGIONS,EA 15 CDT NOS MIN iamLUMB/LUMBOSAC DISC DEGEN ZZC THERAPEUTIC Routine 03/23/2005 5:01 PM iamBRACHIAL NEURITI S EXERCISES CDT NOS iamLUMB/LUMBOSAC DISC DEGEN documented in this encounter Visit Diagnoses Diagnosis iamBRACHIAL NEURITIS NOS Brachial neuritis or radiculitis nos iamLUMB/LUMBOSAC DISC DEGEN Degeneration of lumbar or lumbosacral in tervertebral disc documented in this encounter Care Teams Supervisor Fruit Grading Relationship Specialty Start Date End Date Alejandro Denise MD PCP - General 09/24/01 02/05/14 [facility] [address] [place] [address] documented as of this encounter
--- OUTSIDE RECORDS SUMMARY | 2022-03-31 17:01 | XMS_ITS | Encounter Summary ---
:1984 Author Organization [place] Address [address] [place] [address] Care Team Providers Name Role Phone Alejandro Denise MD Primary Care Provider + Encounter Details Date Type Department Care Team Description 06/19/2008 Therapy Visit [place] for [place] Pain in Joint , Ankle Athletic Medicine - Saw, PT and Foot (Primary Dx) [place] [facility] [address] [facility] [address] [address] [place], [place] [address] [place], [place] [phone] [address] (Work) [phone] Social History Tobacco Use Types Packs/Day Years Used Date Smoking Tobacco: Never Alcohol Use Standard Drinks/Week Comments Not Asked 0 (1 standard drink = 0.6 oz pure alcoho l) Sex Assigned at Date Recorded Not on file documented as of this encounter Progress Notes Saw Mallory - 06/19/2008 3:50 PM CST Please refer to the daily flowsheet for treatment today and total treatment time. Does this patient have Medicare or Medicaid as primary or secondary insurance? NO RTISING VICE PRESIDENT documented in this encounter Plan of Treatment Not on filedocumented as of this encounter Procedures Procedure Name Priority Date/Time Associated Diagnosis Comme nts Z THERAPEUTIC Routine 06/19/2008 3:50 PM Pain in Joint, Ankl e ACTIVITIES ADVERTISING VICE PRESIDENT and Foot ZZ THERAPEUTIC Routine 06/19/2008 3:50 PM Pain in Joint, Ankl e EXERCISES ADVERTISING VICE PRESIDENT and Foot documented in this encounter Visit Diagnoses Diagnosis Pain in joint, ankle and foot - Primary documented in this encounter Care Teams Apprentice Lineman Third Step Relationship Specialty Start Date End Date Alejandro Denise MD PCP - General 09/24/01 02/05/14 [facility] AESTHETIC WELLNESS [address] [place] [address] documented as of this encounter
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
--- OUTSIDE RECORDS SUMMARY | 2022-03-31 17:01 | XMS_ITS | Encounter Summary ---
:1985 Author Organization [facility] Address [address] [facility] [place] [address] Care Team Providers Name Role Phone Alejandro Denise MD Primary Care Provider + Encounter Details Date Type Department Care Team Description 09/15/2006 Emergency room Stevo Grewal MD [facility] [address] [place], [place] [phone] (Wo rk) Social History Tobacco Use Types Packs/Day Years Used Date Smoking Tobacco: Never Alcohol Use Standard Drinks/Week Comments Not Asked 0 (1 standard drink = 0.6 oz pure alcoho l) Sex Assigned at Date Recorded Not on file documented as of this encounter Progress Notes Stevo Grewal - 10/12/2006 2:48 PM CDT FINAL CHIEF COMPLAINT: Abdominal pain. HISTORY OF PRESENT ILLNESS: Ronn Hinkle is a 20-year-old male who presents to the emergency department complaining of mid abdominal pain all night long. The patient states the pain is mostly in his right upper quadrant. It is a sharp, aching pain. It is intermittent, worsens shortly after eating. Hehas vomited six times overnight. No hematemesis. He has a significant amount of heartburn but this is not new for him. He has no history of previous symptoms. No diarrhea, no constipation, no hematemesis. No fevers. No known sick contacts. 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 MEDICATIONS: He denies. ALLERGIES: He denies. SOCIAL HISTORY: The patient is , his is actually in the OB department being evaluated for labor. 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 He does not smoke, use drugs or drink alcohol heavily. FAMILY HISTORY: Denies. REVIEW OF SYSTEMS: See HPI, otherwise at this time he denies review of systems. PHYSICAL EXAMINATION: VITAL SIGNS: Blood pressure 170/61, pulse 113, respirations 20, temperature is 100.3 orally, SaO2 is 97% on room air. His GCS is 15. GENERAL: The patient alert, he is oriented times three. He does notappear to be in acute distress. He is lying supine on the [facility]. HEENT: His pupils equal, round, react to light, no scleral icterus. Oropharynx is clear with moist mucous membranes. NECK: Supple, full range of motion, nontender. LUNGS: Clear to auscultation bilaterally. HEART: Regular rate and rhythm. ABDOMEN: Soft, bowel sounds are present x4 quadrants. He does have right upper quadrant tenderness with palpation. Positive Nowak's sign. EXTREMITIES: Moving all extremities. There is no cyanosis, noclubbing or edema. SKIN: [place], warm, dry. NEURO: Nonfocal. Cranial nerves intact, symmetric, normal speech, normal gait. LABORATORY STUDIES: Comprehensive metabolic panel including liver enzymes is normal. Lipase is normal at 42. Influenza A is negative. Influenza B is negative. Hemogram is normal except for an elevatedwhite blood count of 11.8. There is a left shift on the differential with 93% neutrophils. ANCILLARY STUDIES: Abdominal ultrasound shows sludge in the gallbladder, no gallstones were seen, gallbladder wall is not thickened. Common duct is normal in caliber measuring 5 mm. Pancreas is partially obscured by gas but this is a normal. Liver and spleen are normal. Kidney shows a small simple cyst in the upper pole of the left kidney. No hydronephrosis. No evidence for cholelithiasis or cholecystitis. EMERGENCY DEPARTMENT COURSE/MEDICAL DECISION MAKING: The patient was brought back to the main room of the ER. An IV was established, he was given 4 mg Zofran, 4 mg of morphine, 30 mg of Toradol and anIV fluid bolus of one liter normal saline over 60 minutes. The patient continued to have some pain; he was given a GI cocktail and this seemed to bother him because of the numbness in his throat but did not seem to help his pain at all. Differential diagnosis would include gastroenteritis, gastritis, enteritis, possibly biliary colic. I was concerned about cholelithiasis and acute cholecystitis with his fever, slightly elevated white blood count and concerning history; he is very young but he does have evidence of sludging and this is likely biliary colic. Liver enzymes were normal. His lipase is normal. This also could be peptic ulcer disease. FINAL DIAGNOSIS: Biliary colic with gastroenteritis. DISPOSITION: The was given a prescription for 30 Percocet to be used p.r.n. He will follow up with general surgery in three to five days, returning to the ER with increasing pain, fever, vomiting. He will also be recommended to take [id number] Zantac 150 mg p.o. b.i.d. x14 days. Electronically signed on 10/12/2006 14:47 by STEVO GREWAL MD MT: DAMIAN Name: RONN HINKLE Account: [id number] : 1985 Visit Date: 09/15/2006 Document: [id number] cc: Jorge Olivares MD documented in this encounter Plan of Treatment Not on filedocumented as of this encounter Visit Diagnoses Not on filedocumented in this encounter Care Teams Chemical Analyst Relationship Specialty Start Date End Date Alejandro Denise MD PCP - General 09/24/01 02/05/14 [facility] [address] [place] [address] documented as of this encounter
--- OUTSIDE RECORDS SUMMARY | 2022-03-31 17:01 | XMS_ITS | Encounter Summary ---
:1985 Author Organization [facility] Address [address] [facility] [place] [address] Care Team Providers Name Role Phone Alejandro Denise MD Primary Care Provider + Encounter Details Date Type Department Care Team Description 09/15/2006 Results Only [facility] Stevo Tierney MD [facility] EMERGENCY [facility] Results [address] [place] [address] (Wo rk) Social History Tobacco Use Types Packs/Day Years Used Date Smoking Tobacco: Never Alcohol Use Standard Drinks/Week Comments Not Asked 0 (1 standard drink = 0.6 oz pure alcoho l) Sex Assigned at Date Recorded Not on file documented as of this encounter Plan of Treatment Not on filedocumented as of this encounter Procedures Procedure Name Priority Date/Time Associated Diagnosis Comme [facility] US ABDOMEN Routine 09/15/2006 5:20 PM Results for this COMPLETE CDT procedure are i n the results section. documented in this encounter Results SONO ABDOMEN COMPLETE (09/15/2006 5:20 PM CDT) Anatomical Region Laterality Modality Other Specimen (Source) Anatomical Collection Method Collection Time Re ceived Time Location / / Volume Laterality 09/15/2006 5:20 PM CDT Impressions 09/15/2006 5:42 PM CDT Abdominal ultrasound 09/15/2006 Reason for exam: Abdominal pain, nausea, fever Findings: ?There is sludge in the ga llbladder. No gallstones are seen. The gallbladder wall is not thicke anusha. The common duct is normal in caliber, measuring 5 mm. The pancreas is partially obscured by gas but where seen it appears unremarkable. The liver and spleen are within normal limits. The visualized por tions of the abdominal aorta and inferior vena cava are unremarkable. The right kidney measures 10.3 cm in length. The left kidney measu res 11.3 cm in length. 2.5 cm simple cyst in the upper pole of the lef t kidney. There is no hydronephrosis. Impression: 1. Gallbladder sludge. No evidence for c holelithiasis or cholecystitis. 2. Simple cyst in the left kidney. Stevo Tierney MD SPECIAL IMAGING STUDIES documented in this encounter Visit Diagnoses Not on filedocumented in this encounter Care Teams Workers Compensation Claims Analyst Relationship Specialty Start Date End Date Alejandro Denise MD PCP - General 09/24/01 02/05/14 [facility] [employer] [facility] [address] [place] [address] documented as of this encounter
--- OUTSIDE RECORDS SUMMARY | 2022-03-31 17:01 | XMS_ITS | Encounter Summary ---
:1985 Author Organization [facility] Address [address] [facility] [place] [address] Care Team Providers Name Role Phone Alejandro Denise MD Primary Care Provider + Reason for Referral - Closed Specialty Diagnoses / Procedures Referred By Contact Refer red To Contact Diagnoses Degeneration of lumbar or lumbosacral intervertebral disc Brachial [place] [address] [place], [place] [address] Referral ID Status Reason Start Date Expiration Date Visits Requ ested Visits Authorized [id number] Closed 03/30/2005 05/30/2011 1 1 D ARTILLERY OFFICER Reason for Visit Reason Onset Date Comments Orders 03/30/2005 Pt is requesting a o rder for a few more visits to [facility], also requested to switch PCP to CB Encounter Details Date Type Department Care Team Description 03/30/[address] [facility] Buck Gruber Orders (Pt is [place] a [place] [id number] [facility] [id number] [place] [address] a few more visits to [place], [place] TA, [place] [id number] switch PCP to CB) [phone] (Wo rk) Social History Tobacco Use Types Packs/Day Years Used Date Smoking Tobacco: Never Alcohol Use Standard Drinks/Week Comments Not Asked 0 (1 standard drink = 0.6 oz pure alcoho l) Sex Assigned at Date Recorded Not on file documented as of this encounter Miscellaneous Notes Telephone Encounter - Alejandro Denise - 03/30/2005 10:15 AM CST New order placed for Physical Therapy Alejandro Denise MD [facility] D ARTILLERY OFFICER Telephone Encounter - Nadia Gomez - 03/30/2005 10:07 AM CST Pt is calling requesting a order to be sent through to TA for more visits to therapy. He states that the therapist did recommend it. Thanks. Yoni Gomez RN D ARTILLERY OFFICER documented in this encounter Plan of Treatment Not on filedocumented as of this encounter Visit Diagnoses Diagnosis iamLUMB/LUMBOSAC DISC DEGEN Degeneration of lumbar or lumbosacral in tervertebral disc iamBRACHIAL NEURITIS NOS Brachial neuritis or radiculitis nos documented in this encounter Care Teams Director Of Radio Services Relationship Specialty Start Date End Date Alejandro Denise MD PCP - General 09/24/01 02/05/14 [facility] [address] [place] [address] documented as of this encounter
--- OUTSIDE RECORDS SUMMARY | 2022-03-31 17:01 | XMS_ITS | Encounter Summary ---
:1985 Author Organization [place] Address [address] [place] [address]. [place] [address] Care Team Providers Name Role Phone Alejandro Denise MD Primary Care Provider + Encounter Details Date Type Department Care Team Description 09/28/2008 Therapy Visit [place] for [facility] in (Primary Athletic Medicine - PT Dx) [place] [facility] [address] [facility] [place] [address] [facility] [address] [address] [place], [place] (Work) [address] [phone] Social History Tobacco Use Types Packs/Day Years Used Date Smoking Tobacco: Never Alcohol Use Standard Drinks/Week Comments Not Asked 0 (1 standard drink = 0.6 oz pure alcoho l) Sex Assigned at Date Recorded Not on file documented as of this encounter Progress Notes Buck Ma - 09/28/2008 9:51 AM CDT Please refer to the daily flowsheet for treatment today and total treatment time. Does this patient have Medicare or Medicaid as primary or secondary insurance? NO Please refer to the progress note. documented in this encounter Plan of Treatment Not on filedocumented as of this encounter Procedures Procedure Name Priority Date/Time Associated Diagnosis Comme nts [facility] THERAPEUTIC Routine 09/28/2008 9:51 AM Ankle Pain ACTIVITIES CDT [facility] NEUROMUSCULAR Routine 09/28/2008 9:51 AM Ankle Pain RE-EDUCATION CDT [facility] THERAPEUTIC EXERCISES Routine 09/28/2008 9:51 AM Ankle Dana n CDT documented in this encounter Visit Diagnoses Diagnosis Ankle pain - Primary Pain in joint, ankle and foot documented in this encounter Care Teams Interface Engineer Relationship Specialty Start Date End Date Alejandro Denise MD PCP - General 09/24/01 02/05/14 [facility] [address] [place] [address] documented as of this encounter
--- OUTSIDE RECORDS SUMMARY | 2022-03-31 17:01 | XMS_ITS | Encounter Summary ---
:1985 Author Organization [place] Address [address] [place] [address] Care Team Providers Name Role Phone Alejandro Denise MD Primary Care Provider + Reason for Visit Reason Comments Musculoskeletal Problem R arm/ hand pain, hit arm on a steel pipe yesterday, painful to use hand or arm Encounter Details Date Type Department Care Team Description 10/11/2012 Office Visit [facility] Carlos Chapman Contusion of arm Clinic Anjel Spring MD (Primary Dx) [address] [place] [address] [facility], [address] [place] [address] [place], [place] [phone] (Wo rk) [address] [phone] Social History Tobacco Use Types Packs/Day Years Used Date Smoking Tobacco: Never Smokeless Tobacco: Never Alcohol Use Standard Drinks/Week Comments Yes 0 (1 standard drink = 0.6 oz pure alcoho l) Sex Assigned at Date Recorded Not on file documented as of this encounter Last Filed Vital Signs Vital Sign Reading Time Taken Comments Blood Pressure 120/80 10/11/2012 9:08 AM CDT Pulse 80 10/11/2012 9:08 AM CDT Temperature 37 ??C (98.6 ??F) 10/11/2012 9:08 AM CDT Respiratory Rate 16 10/11/2012 9:08 AM CDT Oxygen Saturation - - Inhaled Oxygen Concentration - - Weight 87.5 kg (193 lb) 10/11/2012 9:08 AM CDT Height - - Body Mass Index 32.12 02/20/2005 9:15 AM CDT documented in this encounter Patient Instructions Patient InstructionsBeCarlos segovia MD - 10/11/2012 9:43 AM CDT Ice 15 minutes 3x daily documented in this encounter Progress Notes Carlos Chapman MD - 10/11/2012 9:11 AM CDT SUBJECTIVE: Ronn Hinkle is a 27 year old male who presents to clinic today for the following health issues: Joint Pain ?? Onset: 10/10/12 ?? Description: Location: Right arm Character: Sharp ?? Intensity: severe ?? Progression of Symptoms: intermittent ?? Accompanying Signs & Symptoms: Other symptoms: radiation of pain to hand and swelling ?? History: Previous similar pain: no ?? Precipitating factors: Trauma or overuse: YES-hit steel pipe ?? Alleviating factors: Improved by: nothing ?? Therapies Tried and outcome: nothing HPI Working with a friend yesterday - swung arm and hit a metal pipe. Impact over middle radius. Pain there and radiating both directions. Hurts to move hand/fingers. At rest pain is tolerable, any movement with hand/wrist causes throbbing pain. No interventions used. No meds. Does not smoke. Review of Systems Constitutional: Negative for fever and chills. Musculoskeletal: Positive for back pain and joint pain. Neurological: Negative for tingling, tremors and focal weakness. Physical Exam Vitals reviewed. Constitutional: He is oriented to person, place, and time and well-developed, well-nourished, and inno distress. Musculoskeletal: He exhibits no edema. Right wrist: He exhibits swelling. He exhibits normal range of motion and no bony tenderness. Right forearm: He exhibits tenderness and deformity. He exhibits no bony tenderness. Bruising and swelling with abrasion over middle R radius Neurological: He is alert and oriented to person, place, and time. Skin: Skin is warm and dry. 923.9 Contusion of arm (primary encounter diagnosis) Comment: unlikley for fracture Plan: ibuprofen (IBU) 600 MG tablet ice RTC in 2w prn Carlos Chapman MD documented in this encounter Nursing Notes 10/11/2012 9:00 AM CDT >> SANIYA Summers October 11, 2012 9:13 AM Patient presents with: Musculoskeletal Problem - R arm/ hand pain, hit arm on a steel pipe yesterday, painful to use hand or arm Initial BP 120/80 Pulse 80 Temp 98.6 ??F (37 ??C) (Oral) Resp 16 Wt 193 lb (87.544 kg)BMIHIS@ BP Completed using cuff size regular Health maintenance updated yes Saniya Goetz MA documented in this encounter Plan of Treatment Not on filedocumented as of this encounter Visit Diagnoses Diagnosis Contusion of arm - Primary Contusion of unspecified part of upper l imb documented in this encounter Care Teams Speedometer Mechanic Relationship Specialty Start Date End Date Alejandro Denise MD PCP - General 09/24/01 02/05/14 [facility] [address] [place] [facility] [place] [address] documented as of this encounter
--- OUTSIDE RECORDS SUMMARY | 2022-03-31 17:01 | XMS_ITS | Encounter Summary ---
:1985 Author Organization [place] Address [address] [place], [place] [address] [address] Care Team Providers Name Role Phone Alejandro Denise MD Primary Care Provider + Encounter Details Date Type Department Care Team Description 09/15/2006 Historic Results INTERFACED REPORT Myesha Olivares MD [facility] [address] [place] [address] (Wo rk) Social History Tobacco Use Types Packs/Day Years Used Date Smoking Tobacco: Never Alcohol Use Standard Drinks/Week Comments Not Asked 0 (1 standard drink = 0.6 oz pure alcoho l) Sex Assigned at Date Recorded Not on file documented as of this encounter Plan of Treatment Not on filedocumented as of this encounter Procedures Procedure Name Priority Date/Time Associated Comments Diagnosis HEMOGRAM DIFFERENTIAL STAT 09/15/2006 5:00 PM Results for this AND PLATELET CDT procedure are i n the results section. LIPASE STAT 09/15/2006 5:00 PM Results f or this CDT procedure are i n the results section. INFLUENZA A/B ANTIGEN Routine 09/15/2006 5:00 PM Results for this CDT procedure are i n the results section. COMPREHENSIVE STAT 09/15/2006 5:00 PM Results for this METABOLIC PANEL CDT procedure ar e in the results section. documented in this encounter Results (ABNORMAL) Hemogram differential and platelet (09/15/2006 5:00 PM CDT) Component Value Ref Test Analysis Performed At [facility] Range Method Time Signature MCV 89 78 - 100 [facility] fl MCH 30.9 26.5 - M[facility] 33.0 pg MCHC 34.7 31.5 - M[facility] 36.5 g/dL RDW 12.9 10.0 - [facility] 15.0 % WBC 11.8 (H) 4.0 - MISYS 11.0 10e9/L RBC Count 4.95 4.4 - MIS[facility] 5.9 10e12/L Hemoglobin 15.3 13.3 - MISYS 17.7 g/dL Hematocrit 44.1 40.0 - MISYS 53.0 % % Neutrophils 93 (H) 40 - 75 MIS[facility] % % Lymphocytes 5 (L) 20 - 48 MIS[facility] % % Monocytes 2 0 - 12 % [facility] Platelet Count 198 150 - M[facility] 450 10e9/L Absolute 11.0 (H) 1.6 - [facility] Neutrophil 8.3 10e9/L Absolute 0.6 (L) 0.8 - [facility] Lymphocytes 5.3 10e9/L Absolute 0.2 0.0 - [facility] Monocytes 1.3 10e9/L Platelet Normal [facility] Estimate Diff Method Manual [facility] Differential RBC Morphology Consistent with [facility] reported results Specimen Anatomical Collection Method Collection Time Receive d Time (Source) Location / / Volume Laterality 09/15/2006 5:00 PM 7 4:47 CDT PM CDT Stevo Tierney MD LAB - BLOOD ORDERABLES Performing Organization Address City/State/ZIP Code Phon e Number [facility] Comprehensive metabolic panel (09/15/2006 5:00 PM CDT) P athologist Signature Sodium 138 133 - 144 [facility] mmol/L Potassium 3.5 3.4 - 5.3 [facility] mmol/L Chloride 104 94 - 109 [facility] mmol/L Carbon Dioxide 22 20 - 32 [facility] mmol/L Glucose 103 60 - 110 [facility] mg/dL Urea Nitrogen 19 5 - 24 [facility] mg/dL Creatinine 1.18 0.80 - [facility] 1.50 mg/dL GFR Estimate 83 >60 [facility] mL/min/1.7 m2 GFR Estimate If >90 >60 [facility] Black mL/min/1.7 m2 Calcium 9.1 8.5 - 10.4 [facility] mg/dL AST 34 0 - 55 U/L [facility] Protein Total 7.4 6.0 - 8.2 [facility] g/dL Anion Gap 12 6 - 17 [facility] mmol/L Albumin 4.6 3.3 - 4.6 [facility] g/dL ALT 41 0 - 70 U/L [facility] Alkaline 110 40 - 150 [facility] Phosphatase U/L Bilirubin Total 0.7 0.2 - 1.3 [facility] mg/dL Specimen Anatomical Collection Method Collection Time Receive d Time (Source) Location / / Volume Laterality 09/15/2006 5:00 PM 7 4:47 CDT PM CDT Stevo Tierney MD LAB - BLOOD ORDERABLES Performing Organization Address City/[facility] Phon e Number MISYS Lipase (09/15/2006 5:00 PM CDT) P athologist Signature Lipase 42 20 - 250 U/L [facility] Specimen Anatomical Collection Method Collection Time Receive d Time (Source) Location / / Volume Laterality 09/15/2006 5:00 PM 7 4:47 CDT PM CDT Stevo Tierney MD LAB - BLOOD ORDERABLES Performing Organization Address City/[facility] Phon e Number MISYS Influenza A/B antigen (09/15/2006 5:00 PM CDT) P athologist Signature Influenza A/B Nares [facility] Agn Specimen Influenza A Negative NEG [facility] Influenza B Negative NEG [facility] Specimen Anatomical Collection Method Collection Time Receive d Time (Source) Location / / Volume Laterality 09/15/2006 5:00 PM 7 5:09 CDT PM CDT Jorge Olivares MD LAB - MICRO GENERAL ORDERABL ES Performing Organization Address City/[facility] Phon e Number MISYS documented in this encounter Visit Diagnoses Not on filedocumented in this encounter Care Teams Timber Surveyor Relationship Specialty Start Date End Date Alejandro Denise MD PCP - General 09/24/01 02/05/14 [facility] [address] [place] [address] documented as of this encounter
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
--- OUTSIDE RECORDS SUMMARY | 2022-03-31 17:01 | XMS_ITS | Encounter Summary ---
:1985 Author Organization [place] Address [address] [place] [id number] Care Team Providers Name Role Phone Alejandro Denise MD Primary Care Provider + Encounter Details Date Type Department Care Team Description 01/10/2003 [place] [phone] Social History Tobacco Use Types Packs/Day Years Used Date Smoking Tobacco: Never Assessed Sex Assigned at Date Recorded Not on file documented as of this encounter Plan of Treatment Not on filedocumented as of this encounter Visit Diagnoses Not on filedocumented in this encounter Care Teams Public Policy Manager Relationship Specialty Start Date End Date Alejandro Denise MD PCP - General 09/24/01 02/05/14 [facility] [address] [place] [address] documented as of this encounter
--- OUTSIDE RECORDS SUMMARY | 2022-03-31 17:01 | XMS_ITS | Encounter Summary ---
:1985 Author [address] [place] [address] [facility] [place] [address] Care Team Providers Name Role Phone Alejandro Denise MD Primary Care Provider + Reason for Visit Reason Comments Physical fasting labs Health Maintenance TDAP Dysuria Encounter Details Date Type Department Care Team Description 10/[facility]2012 [facility] Routine g eneral medical examination at a health care facility (Primary Dx); Clinic Anjel Spring MD Dysuria [place] [address] [facility], [address] [place] [address] [place], [place] [phone] (Wo rk) [address] [phone] Social History Tobacco Use Types Packs/Day Years Used Date Smoking Tobacco: Never Smokeless Tobacco: Never Alcohol Use Standard Drinks/Week Comments Yes 0 (1 standard drink = 0.6 oz pure alcoho l) Sex Assigned at Date Recorded Not on file documented as of this encounter Last Filed Vital Signs Vital Sign Reading Time Taken Comments Blood Pressure 118/72 10/26/2012 8:31 AM CDT Pulse 76 10/26/2012 8:31 AM CDT Temperature 36.9 ??C (98.4 ??F) 10/26/2012 8:31 AM CDT Respiratory Rate 14 10/26/2012 8:31 AM CDT Oxygen Saturation 98% 10/26/2012 8:31 AM CDT Inhaled Oxygen Concentration - - Weight 86.6 kg (191 lb) 10/26/2012 8:31 AM CDT Height 167.6 cm (5' 6) 10/26/2012 8:31 AM CDT Body Mass Index 30.83 10/26/2012 8:31 AM CDT documented in this encounter Patient Instructions Patient InstructionsCandy Cedeño - 10/25/2012 1:56 PM CDT Preventive Health Recommendations Male Ages 26 - 39 Yearly exam: ?? See your health care provider every year in order to o Review health changes. o Discuss preventive care. o Review your medicines if your doctor has prescribed any. You should be tested each year for STDs (sexually transmitted diseases), if you???re at risk. After age 35, talk to your provider about cholesterol testing. If you are at risk for heart disease, have your cholesterol tested at least every 5 years. If you are at risk for diabetes, you should have a diabetes test (fasting glucose). Shots: Get a flu shot each year. Get a tetanus shot every 10 years. Nutrition: Eat at least 5 servings of fruits and vegetables daily. Eat whole-grain bread, whole-wheat pasta and brown rice instead of white grains and rice. For bone health: Eat calcium-rich foods or take calcium pills (500 to 600 mg) twice a day with food. Also take vitamin D (1000 IU) each day. Lifestyle Exercise for at least 150 minutes a week (30 minutes a day, 5 days a week). This will help you control your weight and prevent disease. Limit alcohol to one drink per day. No smoking. Wear sunscreen to prevent skin cancer. See your dentist every six months for an exam and cleaning. documented in this encounter Progress Notes Carlos Chapman MD - 10/25/2012 1:56 PM CDT SUBJECTIVE: CC: Ronn Hinkle is an 27 year old male who presents for preventative health visit. Healthy Habits: ?? Do you get at least three servings of calcium containing foods daily (dairy, green leafy vegetables, etc.)? yes ?? Amount of exercise or daily activities, outside of work: 4-7 day(s) per week ?? Problems taking medications regularly No ?? Medication side effects: No ?? Have you had an eye exam in the past two years? no ?? Do you see a dentist twice per year? no ?? Do you have sleep apnea, excessive snoring or daytime drowsiness?no Other concerns to address: Painful urination since Wednesday some lower abdominal/groin pain Today's PHQ-2 Score: Abuse: Current or Past(Physical, Sexual or Emotional)- No Do you feel safe in your environment - Yes at home History Substance Use Topics ??? Smoking status: Never Smoker ??? Smokeless tobacco: Never Used ??? Alcohol Use: Yes The patient does not drink >3 drinks per day nor >7 drinks per week. Last PSA: No results found for this basename: psa No results found for this basename: CHOL:2,HDL:2,LDL:2,TRI,CHOLHDLRATIO:2 in the last 99549 hours Reviewed orders with patient. Reviewed health maintenance and updated orders accordingly - Yes All Histories reviewed and updated in [facility]. Burning with urination and R groin pain for the last 4-5 days. No fever, abd pain, n/v, change in bowel habits, hematuria. No scrotal pain. Has had groin hernia several years ago - seemed to resolve onown. Reports that long-term GF has had an affair. Is fasting this am. ROS: C: NEGATIVE for fever, chills, change in weight I: NEGATIVE for worrisome rashes, moles or lesions E: NEGATIVE for vision changes or irritation ENT: NEGATIVE for ear, mouth and throat problems R: NEGATIVE for significant cough or SOB CV: NEGATIVE for chest pain, palpitations or peripheral edema GI: NEGATIVE for nausea, abdominal pain, heartburn, or change in bowel habits male: negative for , hematuria, decreased urinary stream, erectile dysfunction, urethral discharge. Does have some dysuria. M: NEGATIVE for significant arthralgias or myalgia N: NEGATIVE for weakness, dizziness or paresthesias P: NEGATIVE for changes in mood or affect Problem list, Medication list, Allergies, and Medical/Social/Surgical histories reviewed in [facility] andupdated as appropriate. OBJECTIVE: BP 118/72 Pulse 76 Temp 98.4 ??F (36.9 ??C) (Oral) Resp 14 Ht 5' 6 (1.676 m) Wt 191 lb (86.637 kg) BMI 30.83 kg/m2 SpO2 98% Estimated Body mass index is 30.83 kg/(m^2) as calculated fromthe following: Height as of this encounter: 5' 6(1.676 m). Weight as of this encounter: 191 lb(86.637 kg). GENERAL APPEARANCE: healthy, alert and no distress EYES: Eyes grossly normal to inspection, PERRL and conjunctivae and sclerae normal HENT: ear canals and TM's normal, nose and mouth without ulcers or lesions, oropharynx clear and oral mucous membranes moist NECK: no adenopathy, no asymmetry, masses, or scars and thyroid normal to palpation RESP: lungs clear to auscultation - no rales, rhonchi or wheezes CV: regular rates and rhythm, normal S1 S2, no S3 or S4, no murmur, click or rub, no peripheral edema and peripheral pulses strong ABDOMEN: soft, nontender, no hepatosplenomegaly, no masses and bowel sounds normal (male): normal male genitalia without lesions or urethral discharge, no hernia. L teste surgically absent. MS: no musculoskeletal defects are noted and gait is age appropriate without ataxia SKIN: no suspicious lesions or rashes NEURO: Normal strength and tone, sensory exam grossly normal, mentation intact and speech normal PSYCH: mentation appears normal and affect normal/bright ATP III Guidelines FRAX Risk Assessment ICSI Preventive Guidelines ASSESSMENT/PLAN: 1. Routine general medical examination at a health care facility (V70.0) TDAP (ADACEL AGES 11-64), Lipid panel reflex to direct LDL, Basic metabolic panel, CBC with platelets, Vitamin D Deficiency 2. Dysuria (788.1) *UA reflex to Microscopic and Culture, NEISSERIA GONORRHOEA PCR, CHLAMYDIA TRACHOMATIS PCR Counseling: Dietary Guidelines for Americans, 2010 USDA's MyPlate vision screening reports that he has never smoked. He has never used smokeless tobacco. Estimated Body mass index is 30.83 kg/(m^2) as calculated from the following: Height as of this encounter: 5' 6(1.676 m). Weight as of this encounter: 191 lb(86.637 kg). Weight management plan: . Carlos Chapman MD [facility] documented in this encounter Plan of Treatment Not on filedocumented as of this encounter Procedures Procedure Name Priority Date/Time Associated Diagnosis Comme nts UA MACROSCOPIC WITH Routine 10/26/2012 8:54 AM Dysuria Re sults for this REFLEX TO CDT procedure are i n MICROSCOPIC AND the results CULTURE section. VITAMIN D DEFICIENCY Routine 10/26/2012 8:54 AM Routine genera l Results for this SCREENING CDT medical examination procedur e are in at a health care the results facility section. NEISSERIA Routine 10/26/2012 8:54 AM Dysuria Results f or this GONORRHOEAE PCR CDT procedure ar e in the results section. LIPID REFLEX TO Routine 10/26/2012 8:54 AM Routine general Res ults for this DIRECT LDL PANEL CDT medical examination proc edure are in at a health care the results facility section. CHLAMYDIA Routine 10/26/2012 8:54 AM Dysuria Results f or this TRACHOMATIS PCR CDT procedure ar e in the results section. BASIC METABOLIC Routine 10/26/2012 8:54 AM Routine general Res ults for this PANEL CDT medical examination procedur e are in at a health care the results facility section. CBC WITH PLATELETS Routine 10/26/2012 8:54 AM Routine general Results for this CDT medical examination procedur e are in at a health care the results facility section. documented in this encounter Results CHLAMYDIA TRACHOMATIS PCR (10/26/2012 8:54 AM CDT) Component Value Ref Test Analysis Performed At [facility] Range Method Time Signature Specimen Urine [facility] LAB Chlamydia Negative for C. trachomatis rRNA by biology professor mediated amplification. [facility] Trachomatis A negative result by transc ription mediated amplification does not preclude the MICROBIOLOGY PCR presence of C. trachomatis infection because results are dependent on proper and adequate collection, absence of inhibitors, and suffici ent rRNA to be detected. Specimen Anatomical Collection Method Collection Time Receive d Time (Source) Location / / Volume Laterality Urine specimen 10/26/2012 8:54 AM 013 8:56 (specimen) CDT AM CDT Carlos Chapman MD LAB - MICRO GENERAL ORDERABL ES Performing Organization Address City/State/ZIP Code Phon e Number [address] [address] [facility] [address] [place] [address] LAB [facility] MICROBIOLOGY NEISSERIA GONORRHOEA PCR (10/26/2012 8:54 AM CDT) Component Value Ref Test Analysis Performed At [facility] Range Method Time Signature Specimen Urine [facility] LAB N Gonorrhea Negative for N. gonorrhoeae rRNA by biology professor mediated amplification. [facility] PCR A negative result by transc ription mediated amplification does not preclude the MICROBIOLOGY presence of N. gonorrhoeae infection because re sults are dependent on proper and adequate collection, absence of inhibitors, and suffici ent rRNA to be detected. Specimen Anatomical Collection Method Collection Time Receive d Time (Source) Location / / Volume Laterality Urine specimen 10/26/2012 8:54 AM 013 8:56 (specimen) CDT AM CDT Carlos Chapman MD LAB - MICRO GENERAL ORDERABL ES Performing Organization Address City/[facility]/ZIP Code Phon e Number [address] [address] [facility] [place], [place] [id number] LAB [facility] MICROBIOLOGY *UA reflex to Microscopic and Culture (10/26/2012 8:54 AM CDT) [facility] Method Time Signature Color Urine Yellow [facility] LAB Appearance Urine Clear [facility] Glucose Urine Negative NEG mg/dL [facility] Bilirubin Urine Negative NEG [facility] Ketones Urine Negative NEG mg/dL [facility] Specific [place] 1.020 1.003 - [place] Urine 1.035 [facility] Blood Urine Negative NEG [facility] LAB pH Urine 5.5 5.0 - 7.0 [place] pH [facility] Protein Albumin Negative NEG mg/dL [facility] LAB Urobilinogen 0.2 0.2 - 1.0 [place] Urine EU/dL [facility] Nitrite Urine Negative NEG [facility] Leukocyte Negative NEG [place] Esterase Urine [facility] Source Midstream [place] Urine [facility] Specimen Anatomical Collection Method Collection Time Receive d Time (Source) Location / / Volume Laterality Urine specimen 10/26/2012 8:54 AM 013 8:56 (specimen) CDT AM CDT Carlos Chapman MD LAB - URINE ORDERABLES Performing Organization Address City/[facility]/ZIP Code Phon e Number [facility] [place] [address] [facility] [place] [address] LAB (ABNORMAL) Vitamin D Deficiency (10/26/2012 8:54 AM CDT) athologist Signature Vitamin D 18 (L) 30 - 75 [facility] Deficiency ug/L [facility] LABS Comment: Season, race, dietary intake, and treatm ent affect the concentration of 25-ocqhxqo-Imokkcx D. Values may decrea se during winter [...] questions, pl ease contact the laboratory at [phone]. Specimen Anatomical Collection Method Collection Time Receive d Time (Source) Location / / Volume Laterality Blood specimen 10/26/2012 8:54 AM 013 8:56 (specimen) CDT AM CDT Carlos Chapman MD LAB - BLOOD ORDERABLES Performing Organization Address City/State/ZIP Code Phon e Number [id number] [place] [address] LABS CBC with platelets (10/26/2012 8:54 AM CDT) athologist Signature WBC 7.2 4.0 - 11.0 [place] 10e9/L [facility] RBC Count 5.20 4.4 - 5.9 [facility] 10e12/L [facility] Hemoglobin 16.7 13.3 - [facility] 17.7 g/dL [facility] LAB Hematocrit 46.7 40.0 - [facility] 53.0 % [facility] LAB MCV 90 78 - [address] [facility] fl [facility] LAB MCH 32.1 26.5 - [facility] 33.0 pg [facility] LAB MCHC 35.8 31.5 - [facility] 36.5 g/dL [facility] LAB RDW 12.7 10.0 - [facility] 15.0 % [facility] LAB Platelet Count 186 150 - 450 [place] 10e9/L [facility] LAB Specimen Anatomical Collection Method Collection Time Receive d Time (Source) Location / / Volume Laterality Blood specimen 10/26/2012 8:54 AM 013 8:56 (specimen) CDT AM CDT Carlos Chapman MD LAB - BLOOD ORDERABLES Performing Organization Address [facility]/ZIP Code Phon e Number [facility] [place] [address] [facility] [place] [address] LAB (ABNORMAL) Basic metabolic panel (10/26/2012 8:54 AM CDT) athologist Signature Sodium 144 133 - 144 [place] mmol/L [facility] LAB Potassium 4.4 3.4 - 5.3 [place] mmol/L [facility] LAB Chloride 104 94 - 109 [place] mmol/L [facility] LAB Carbon Dioxide 26 20 - 32 [place] mmol/L [facility] LAB Anion Gap 14 6 - 17 [place] mmol/L [facility] LAB Glucose 105 (H) 60 - 99 [place] mg/dL [facility] LAB Urea Nitrogen 16 5 - 24 [place] mg/dL [facility] LAB Creatinine 0.97 0.66 [facility] 1.[facility] mg/dL [facility] LAB GFR Estimate >90 >60 [place] mL/min/1.7 [facility] m2 LAB GFR Estimate If >90 >60 [place] Black mL/min/1.7 [facility] m2 LAB Calcium 9.3 8.5 - 10.4 [place] mg/dL [facility] LAB Specimen Anatomical Collection Method Collection Time Receive d Time (Source) Location / / Volume Laterality Blood specimen 10/26/2012 8:54 AM 013 8:56 (specimen) CDT AM CDT Carlos hCapman MD LAB - BLOOD ORDERABLES Performing Organization Address City/[facility] Code Phon e Number [facility] [address] [place] [address] [facility] [address] [place] [address] (ABNORMAL) Lipid panel reflex to direct LDL (10/26/2012 8:54 AM CDT) P athologist Signature Cholesterol 167 0 - 200 [facility] mg/dL CLINIC LAB Comment: LDL Cholesterol is the primary guide to therapy. The NCEP recommends further evaluation of: patients with cholesterol greater than 200 mg/dL if additional risk facto rs are present, cholesterol greater than 240 mg/dL, triglycerides greater than 1 50 mg/dL, or HDL less than 40 mg/dL. Triglycerides 127 0 - 150 mg/dL [facility] LAB HDL Cholesterol 38 (L) 40 - 110 mg/dL [facility] LAB LDL Cholesterol Calculated 103 0 - 129 mg/dL [facility] LAB Comment: LDL Cholesterol is the primary guide to therapy: LDL-cholesterol goal in high risk patients is <100 mg/dL and in very high risk patients is <70 mg/dL. VLDL-Cholesterol 25 0 - 30 mg/dL [facility] LAB Cholesterol/HDL Ratio 4.4 0.0 - 5.0 [facility] LAB Specimen Anatomical Collection Method Collection Time Receive d Time (Source) Location / / Volume Laterality Blood specimen 10/26/2012 8:54 AM 013 8:56 (specimen) CDT AM CDT Carlos Chapman MD LAB - BLOOD ORDERABLES Performing Organization Address City/State/ZIP Code Phon e Number [facility] [address] [place] [address] [facility] [address] [place] [address] documented in this encounter Visit Diagnoses Diagnosis Routine general medical examination at a health care facility - Primary Dysuria documented in this encounter Care Teams Warehouse Engineer Relationship Specialty Start Date End Date Alejandro Denise MD PCP - General 09/24/01 02/05/14 [facility] [address] [place] [address] documented as of this encounter
--- OUTSIDE RECORDS SUMMARY | 2022-03-31 17:01 | XMS_ITS | Encounter Summary ---
:1985 Author Organization [place] Address [address] [place] [address] Care Team Providers Name Role Phone Alejandro Denise MD Primary Care Provider + Reason for Visit Reason Onset Date Comments Refill Request 02/11/2005 Encounter Details Date Type Department Care Team Description 02/11/2005 Refill [facility], Refill Request Carmita Ravi MD [address] [place] [address] [phone] [place] [address] (Wo rk) Social History Tobacco Use Types Packs/Day Years Used Date Smoking Tobacco: Never Alcohol Use Standard Drinks/Week Comments Not Asked 0 (1 standard drink = 0.6 oz pure alcoho l) Sex Assigned at Date Recorded Not on file documented as of this encounter Miscellaneous Notes Telephone Encounter - Jayne Webb - 02/11/2005 1:54 PM CDT pt running out of meds for gen vicodin and valium, original rx from ER , saw AJ 02/06/05,has future appt scheduled, arm causing a lot of pain, has 2 pills of vicodin left, wonders if can get refill of vicodin or what AJ recommends, call pt @ [phone] if tbl, pt will discuss further on 02/13/05 ov Jayne Webb RN documented in this encounter Plan of Treatment Not on filedocumented as of this encounter Visit Diagnoses Diagnosis 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
--- OUTSIDE RECORDS SUMMARY | 2022-03-31 17:01 | XMS_ITS | Encounter Summary ---
:1985 Author Organization [place] Address [address] [place] [address]. [place] [address] Care Team Providers Name Role Phone Alejandro Denise MD Primary Care Provider + Encounter Details Date Type Department Care Team Description 02/26/2005 Therapy Visit [place] for Ambar Rodas, PT iamBRACHIAL NEURITIS NOS; Athletic Medicine - [address] i amLUMB/LUMBOSAC DISC [facility] [address] [place] [address] [facility] [phone] [address] [place], [place] [id number] Social History Tobacco Use Types Packs/Day Years Used Date Smoking Tobacco: Never Alcohol Use Standard Drinks/Week Comments Not Asked 0 (1 standard drink = 0.6 oz pure alcoho l) Sex Assigned at Date Recorded Not on file documented as of this encounter Progress Notes Ambar Villegas - 02/26/2005 5:13 PM CDT Please refer to the daily flowsheet for treatment today. 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
--- OUTSIDE RECORDS SUMMARY | 2022-03-31 17:01 | XMS_ITS | Encounter Summary ---
:1985 Author Organization [place] Address [address] [place] [address] Care Team Providers Name Role Phone Alejandro Denise MD Primary Care Provider + Encounter Details Date Type Department Care Team Description 06/21/2008 Therapy Visit [facility] for [place] Pain in Joint , Ankle Athletic Medicine - Saw, PT and Foot (Primary Dx) [facility] [address] [facility] [address] [address] [place], [place] [address] [place], [place] [phone] [address] (Work) [phone] Social History Tobacco Use Types Packs/Day Years Used Date Smoking Tobacco: Never Alcohol Use Standard Drinks/Week Comments Not Asked 0 (1 standard drink = 0.6 oz pure alcoho l) Sex Assigned at Date Recorded Not on file documented as of this encounter Progress Notes Saw Mallory - 06/21/2008 3:20 PM CST Please refer to the daily flowsheet for treatment today and total treatment time. Does this patient have Medicare or Medicaid as primary or secondary insurance? NO Y ROLLING MACHINE OPERATOR documented in this encounter Plan of Treatment Not on filedocumented as of this encounter Procedures Procedure Name Priority Date/Time Associated Diagnosis Comme nts [facility] THERAPEUTIC Routine 06/21/2008 3:20 PM Pain in Joint, Ankl e EXERCISES CANDY ROLLING MACHINE OPERATOR and Foot [facility] ELECTRIC CURRENT Routine 06/21/2008 3:20 PM Pain in Joint, Ankle THERAPY CANDY ROLLING MACHINE OPERATOR and Foot documented in this encounter Visit Diagnoses Diagnosis Pain in joint, ankle and foot - Primary documented in this encounter Care Teams Slide Fasteners Inspector Relationship Specialty Start Date End Date Alejandro Denise MD PCP - General 09/24/01 02/05/14 [facility] [address] [place] [address] documented as of this encounter
--- OUTSIDE RECORDS SUMMARY | 2022-03-31 17:01 | XMS_ITS | Encounter Summary ---
:1985 Author Organization [place] Address [address] [place] [address]. [place] [address] Care Team Providers Name Role Phone Alejandro Denise MD Primary Care Provider + Encounter Details Date Type Department Care Team Description 07/02/2008 Therapy Visit [place] for Dougie Noriega PT Pain in Joint, Ankle Athletic Medicine - [place] and Foot (Primary Dx) [place] [facility] [address] [address] Therapy [facility] 300 [address] [place], [place] [address] [place], [place] [phone] (Work) [phone] Social History Tobacco Use Types Packs/Day Years Used Date Smoking Tobacco: Never Alcohol Use Standard Drinks/Week Comments Not Asked 0 (1 standard drink = 0.6 oz pure alcoho l) Sex Assigned at Date Recorded Not on file documented as of this encounter Progress Notes Dougie Noriega - 07/02/2008 4:38 PM CST Please refer to the daily flowsheet for treatment today and total treatment time. Does this patient have Medicare or Medicaid as primary or secondary insurance? NO CEWOMAN documented in this encounter Plan of Treatment Not on filedocumented as of this encounter Procedures Procedure Name Priority Date/Time Associated Diagnosis Comme nts Z THERAPEUTIC Routine 07/02/2008 4:38 PM Pain in Joint, Ankl e ACTIVITIES POLICEWOMAN and Foot ZZ THERAPEUTIC Routine 07/02/2008 4:38 PM Pain in Joint, Ankl e EXERCISES POLICEWOMAN and Foot Z ELECTRIC CURRENT Routine 07/02/2008 4:38 PM Pain in Joint, Ankle THERAPY POLICEWOMAN and Foot documented in this encounter Visit Diagnoses Diagnosis Pain in joint, ankle and foot - Primary documented in this encounter Care Teams Motion Picture Projectionist Apprentice Relationship Specialty Start Date End Date Alejandro Denise MD PCP - General 09/24/01 02/05/14 [facility] AESTHETIC WELLNESS [address] [place] [address] documented as of this encounter
--- OUTSIDE RECORDS SUMMARY | 2022-03-31 17:01 | XMS_ITS | Encounter Summary ---
:1985 Author Organization [place] Address [address] [place] [address]. [place] [address] Care Team Providers Name Role Phone Alejandro Denise MD Primary Care Provider + Encounter Details Date Type Department Care Team Description 06/13/2008 Therapy Visit [place] for Dougie Noriega PT Pain in Joint, Ankle Athletic Medicine - [place] and Foot (Primary Dx) [place] [facility] [address] [address] Therapy [facility] 300 [address] [place], [place] [address] [place], [place] [phone] (Work) [phone] Social History Tobacco Use Types Packs/Day Years Used Date Smoking Tobacco: Never Alcohol Use Standard Drinks/Week Comments Not Asked 0 (1 standard drink = 0.6 oz pure alcoho l) Sex Assigned at Date Recorded Not on file documented as of this encounter Progress Notes Dougie Noriega - 06/13/2008 12:56 PM CST Please refer to the daily flowsheet for treatment today and total treatment time. Does this patient have Medicare or Medicaid as primary or secondary insurance? NO R ARTIST documented in this encounter Plan of Treatment Not on filedocumented as of this encounter Procedures Procedure Name Priority Date/Time Associated Diagnosis Comme nts [facility] THERAPEUTIC Routine 06/13/2008 4:41 PM Pain in Joint, Ankl e ACTIVITIES COLOR ARTIST and Foot ZZ THERAPEUTIC Routine 06/13/2008 4:41 PM Pain in Joint, Ankl e EXERCISES COLOR ARTIST and Foot documented in this encounter Visit Diagnoses Diagnosis Pain in joint, ankle and foot - Primary documented in this encounter Care Teams Fast Brim Pouncer Relationship Specialty Start Date End Date Alejandro Denise MD PCP - General 09/24/01 02/05/14 [facility] AESTHETIC WELLNESS [address] [place] [address] documented as of this encounter
--- OUTSIDE RECORDS SUMMARY | 2022-03-31 17:01 | XMS_ITS | Encounter Summary ---
:1985 Author Organization [place] Address [address] [place] [address]. [place] [address] Care Team Providers Name Role Phone Alejandro Denise MD Primary Care Provider + Encounter Details Date Type Department Care Team Description 07/06/2008 Therapy Visit [place] for Dougie Noriega PT Pain in Joint, Ankle Athletic Medicine - [place] and Foot (Primary Dx) [place] [facility] [address] [place] Therapy [facility] 300 [address] [place], [place] [address] [place], [place] [phone] (Work) [phone] Social History Tobacco Use Types Packs/Day Years Used Date Smoking Tobacco: Never Alcohol Use Standard Drinks/Week Comments Not Asked 0 (1 standard drink = 0.6 oz pure alcoho l) Sex Assigned at Date Recorded Not on file documented as of this encounter Progress Notes Dougie Noriega - 07/06/2008 5:07 PM CST Please refer to the daily flowsheet for treatment today and total treatment time. Does this patient have Medicare or Medicaid as primary or secondary insurance? NO ACTORY SPECIALIST documented in this encounter Plan of Treatment Not on filedocumented as of this encounter Procedures Procedure Name Priority Date/Time Associated Diagnosis Comme nts ZZ THERAPEUTIC Routine 07/06/2008 5:07 PM Pain in Joint, Ankl e ACTIVITIES REFRACTORY SPECIALIST and Foot ZZC THERAPEUTIC Routine 07/06/2008 5:07 PM Pain in Joint, Ankl e EXERCISES REFRACTORY SPECIALIST and Foot ZZC ELECTRIC CURRENT Routine 07/06/2008 5:07 PM Pain in Joint, Ankle THERAPY REFRACTORY SPECIALIST and Foot documented in this encounter Visit Diagnoses Diagnosis Pain in joint, ankle and foot - Primary documented in this encounter Care Teams Personal Computer Network Analyst Relationship Specialty Start Date End Date Alejandro Denise MD PCP - General 09/24/01 02/05/14 [facility] [address] [place] [address] documented as of this encounter
--- OUTSIDE RECORDS SUMMARY | 2022-03-31 17:01 | XMS_ITS | Encounter Summary ---
:1985 Author Organization [place] Address [facility] [place] [address] Care Team Providers Name Role Phone Alejandro Denise MD Primary Care Provider + Reason for Visit [facility] Physical Therapy (Routine) - Closed Specialty Diagnoses / Procedures Referred By Contact Refer red To Contact Jorge Olivares MD [facility] ATHLETIC [facility] [address] [place], [place] [address] Referral ID Status Reason Start Date Expiration Date Visits Requ ested Visits Authorized HP - SPINE Closed 08/19/2009 05/30/2010 20 18 Encounter Details Date Type Department Care Team Description 08/21/2009 Therapy Visit [place] Pt, Low Back Pain Athletic Medicine - [place] (Primary Dx) [place] [facility] [address] [facility] 300 [address] [place], [place] [address] [place], [place] [phone] (Work) [phone] Social History Tobacco Use Types Packs/Day Years Used Date Smoking Tobacco: Never Alcohol Use Standard Drinks/Week Comments Not Asked 0 (1 standard drink = 0.6 oz pure alcoho l) Sex Assigned at Date Recorded Not on file documented as of this encounter Progress Notes Buck Ma - 10/17/2009 9:10 AM CDT PT failed to return to PT after initial visit. DC at this time. Guera Lockwood - 08/21/2009 10:37 AM CDT Subjective: Pertinent medical history includes: Cancer. Medical allergies: no. Other surgeries include: Cancer surgery. Current occupation is Student. Patient is working in an alternate job. Primary job tasks include: Lifting, driving and operating a machine. Barriers include: None as reported by patient. Red flags: None as reported by patient. Objective: System Physical Exam General ROS Assessment/Plan: Rolo Pablo - 08/21/2009 10:07 AM CDT Subjective: Ronn Hinkle is a 23 year old male with a lumbar condition. Condition occurred with: Insidious onset (possibly related to a fall last year). Condition occurred: for unknown reasons. This is a chroniccondition Has had pain L LB and down S1 dermatome to lateral foot since last year. He has had injections with no lasting effect. 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 Patient reports pain: Lumbar spine left. Radiates to: Thigh left, lower leg left, foot left and gluteals left. Pain is described as shooting and aching and is intermittent and reported as 4/10. Pain isworse during the day. Symptoms are exacerbated by sitting and relieved by nothing. Since onset symptoms are unchanged. Special tests: X-ray, MRI, CT scan, EMG and bone scan (negative according to patient). Previous treatment includes other (injections). There was no improvement following previous treatment. General health as reported by patient is good. Pertinent medical history includes: Overweight and cancer. Medical allergies: no. Other surgeries include: Cancer surgery. Current medications: Noneas reported by the patient. 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 Primary job tasks include: Prolonged sitting, operating a machine and lifting. Barriers include: None as reported by the patient. Red flags: None as reported by the patient. Objective: Standing Alignment: Cervical/Thoracic: Forward head Shoulder/UE: Rounded shoulders Lumbar/SI Evaluation ROM: AROM Lumbar: normal Lumbar Myotomes: normal Lumbar DTR's: normal Cord Signs: normal Lumbar Dermtomes: normal Neural Tension/Mobility: Left side: SLR and Slump positive. Lumbar Palpation: normal Functional Tests: not assessed Lumbar Provocation: not assessed Vani Lumbar Evaluation Posture: Sitting: fair Standing: fair Lordosis: WNL Lateral Shift: nil Correction of Posture: better Movement Loss: Flexion (Flex): nil Extension (EXT): nil Side [place] R (SG R): nil and pain Side [place] L (SG L): nil Test Movements: FIS: During: no effect After: no effect Mechanical Response: no effect Repeat FIS: During: no effect After: no effect Mechanical Response: no effect OSCAR: During: no effect After: no effect Mechanical Response: no effect Repeat OSCAR: During: no effect After: no effect Mechanical Response: no effect EIL: During: centralizing After: no worse Mechanical Response: no effect Repeat EIL: During: centralizing After: no worse Mechanical Response: no effect SGIS R: During: no effect After: no effect Mechanical Response: no effect Repeat SGIS R: During: no effect After: no effect Mechanical Response: no effect SGIS L: During: no effect After: no effect Mechanical Response: no effect Repeat SGIS L: During: no effect After: no effect Mechanical Response: no effect Conclusion: derangement (possible but not conclusive) Principle of Treatment: Posture Correction: Yes in sitting Extension: Repeated EIL x10 every 2-3 hours for next 2 days to see if centralized sx's happens ROS Assessment/Plan: Patient is a 23 year old male with lumbar complaints. Patient has the following significant findings with corresponding treatment plan. Diagnosis 1: L LBP with S1 radiculapathy Pain - directional preference exercise Decreased strength - therapeutic exercise and therapeutic activities Impaired muscle performance - neuro re-education Decreased function - therapeutic activities Impaired posture - neuro re-education Previous and current functional limitations: (See Goal Flow Sheet for this information) Short term and long term goals: (See Goal Flow Sheet for this [...] to resume normal activities. Rehab potential is good. Frequency: 2 X week Duration: for 4 weeks Discharge Plan: Achieve all LTG. Independent in home treatment program. Reach maximal therapeutic benefit. This patient does not have Medicare/Medicaid. Please refer to the daily flowsheet for treatment today and total treatment time. documented in this encounter Plan of Treatment Not on filedocumented as of this encounter Procedures Procedure Name Priority Date/Time Associated Diagnosis Comme nts [facility] NEUROMUSCULAR Routine 08/21/2009 10:16 AM Low Back Pain RE-EDUCATION CDT [facility] THERAPEUTIC EXERCISES Routine 08/21/2009 10:16 AM Low Back Pain CDT documented in this encounter Visit Diagnoses Diagnosis Low back pain - Primary Lumbago documented in this encounter Care Teams Data Processing Operator Relationship Specialty Start Date End Date Alejandro Denise MD PCP - General 09/24/01 02/05/14 [facility]ESTHETIC WELLNESS [address] [place] [address] documented as of this encounter
--- OUTSIDE RECORDS SUMMARY | 2022-03-31 17:01 | XMS_ITS | Encounter Summary ---
:1985 Author Organization [place] Address [address] [place] [address] Care Team Providers Name Role Phone Alejandro Denise MD Primary Care Provider + Encounter Details Date Type Department Care Team Description 09/17/2006 Historic Results INTERFACED REPORT Vimal Diaz MD [address] [facility] [place] [id number] [place], [place] [address] (Wo rk) Social History Tobacco Use Types Packs/Day Years Used Date Smoking Tobacco: Never Alcohol Use Standard Drinks/Week Comments Not Asked 0 (1 standard drink = 0.6 oz pure alcoho l) Sex Assigned at Date Recorded Not on file documented as of this encounter Plan of Treatment Not on filedocumented as of this encounter Procedures Procedure Name Priority Date/Time Associated Diagnosis Comme [facility] HISTOPATHOLOGY Routine 09/17/2006 12:00 AM Result s for this CDT procedure are i n the results section . documented in this encounter Results Histopathology (09/17/2006 12:00 AM CDT) Component Value Ref Test Analysis Performed At [facility] Range Method Time Signature Copath Report CASE: [id number] ^ COPATH Patient Name: RONN HINKLE MR#: [id number] Specimen #: [id number] Collected: 09/17/2006 Received: 09/17/2006 Reported: 09/20/2006 15:25 Ordering Phy(s): ZANE DIAZ SPECIMEN(S): Gallbladder and contents FINAL DIAGNOSIS: Gallbladder, resection - Histologically normal gallbladder. Electronically signed out by: Ronn Alvarez M.D. CLINICAL HISTORY: Biliary colic. GROSS: The specimen is labeled gallbladder and contents. ??The sp ecimen consists of a pink-red gallbladder (6.1 x 3.1 x 1.3 cm). ??N o gallstones are identified. ??The gallbladder wall measures 0.1 cm in th ickness and has a red velvety mucosal surface. ??Edge Kitter sections are submitted. ??SI ??TRS/melissa MICROSCOPIC: The gallbladder shows intact mucosa. ??The wall shows infreq uent small focal lymphoid aggregates in the lamina propria and is other bess unremarkable. ??There is no evidence of dysplasia or maligna ncy. DGB/melissa 09/20/2006 TESTING LAB LOCATION: [address] ??[id number] COLLECTION SITE: Client: [facility] Location: SDS (S) Specimen (Source) Anatomical Collection Method Collection Time Re ceived Time Location / / Volume Laterality 09/17/2006 09/20/2006 3:25 PM CDT Zane Diaz MD LAB - [facility] SPECIAL DIAG OR DERABLES Performing Organization Address City/State/ZIP Code Phon e Number [place] documented in this encounter Visit Diagnoses Not on filedocumented in this encounter Care Teams Green Chain Off Bearer Relationship Specialty Start Date End Date Alejandro Denise MD PCP - General 09/24/01 02/05/14 [facility] AESTHETIC WELLNESS [address] [place] [address] documented as of this encounter
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
--- OUTSIDE RECORDS SUMMARY | 2022-03-31 17:01 | XMS_ITS | Encounter Summary ---
:1985 Author Organization [facility] Address [address] [place] [address] Care Team Providers Name Role Phone Alejandro Denise MD Primary Care Provider + Encounter Details Date Type Department Care Team Description 09/17/2006 Operative Report Zane Diaz, (Yarder Puncher) [address] [facility] [id number] [place], [place] [id number] (Wo rk) Social History Tobacco Use Types Packs/Day Years Used Date Smoking Tobacco: Never Alcohol Use Standard Drinks/Week Comments Not Asked 0 (1 standard drink = 0.6 oz pure alcoho l) Sex Assigned at Date Recorded Not on file documented as of this encounter Progress Notes Zane Diaz - 09/29/2006 10:46 AM CDT FINAL 1st Lumber Tying Machine Operator: Daniel Lai PA-C PREOPERATIVE DIAGNOSIS: Biliary colic. POSTOPERATIVE DIAGNOSIS: Biliary colic. PROCEDURE: Laparoscopic cholecystectomy. ANESTHESIA: General. ESTIMATED BLOOD LOSS: Less than 20 cc. DRAINS: None. COMPLICATIONS: None. SPECIMENS: Gallbladder and contents. INDICATIONS: Ronn Hinkle is a 20-year-old gentleman who presented to my office with chief complaint of epigastric and right upper quadrant abdominal pain. This had been worsening for some time. He had been self medicating for presumed reflux disease with no improvement. He had an abdominal ultrasound which showed biliary sludge. I, therefore, discussed with him his therapeutic options. It was elected to proceed with cholecystectomy. The potential risks including but not limited to bleeding, infection, bile duct or visceral injury were all reviewed and the patient wished to proceed. PROCEDURE: After informed consent was obtained, the patient was taken to the operating room and placed supine on the operating table. Following the induction of adequate general endotracheal anesthesia, the patient's abdomen was shaved, prepped and draped in the usual fashion. An infraumbilical curvilinear incision was made and careful sharp cut down was taken to the anterior fascia. This was sharply incised and the peritoneum was opened. Through this incision an 11 mm port was introduced. The abdomen was then insufflated with carbon dioxide to create a pneumoperitoneum. A 5 mm 30 degree scope wasinserted through the trocar. There were some anterior abdominal wall adhesions which actually were to the left of midline and did not obstruct our view of the gallbladder. We then visualized the right upper quadrant. Gallbladder was grasped and elevated. The patient was placed in steep reverse Trendelenburg and rolled to her left. Fundus of the gallbladder was grasped and elevated. Blunt dissection was carried down along the body of the gallbladder to identify the infundibulum. The cystic duct and artery were dissected free from the contents of the triangle of Calot. These structures were then encircled and ligated with clips and divided with sharp scissors. Ductofundus dissection using electrocautery was then used to free the gallbladder from the liver bed. Once freed, the gallbladder was removed through the 11 mm port site. The operative area was re-examined. Hemostasis was assured using electrocautery. The gallbladder fossa and right upper quadrant were copiously irrigated until the affluentwas essentially clear. The trocars were all then removed under direct visualization with no signs ofbleeding. Carbon dioxide was allowed to escape from the abdomen. The fascia at the 11 mm port site was closed using 0 Vicryl stitch. The skin incisions were closed with subcuticular 4-0 Vicryl stitches. Benzoin, Steri-Strips and sterile dressings were applied. The patient tolerated this well. He was extubated in the operating room and taken to the recovery room in stable condition. Electronically signed on 09/29/2006 10:45 by ZANE DIAZ MD MT: solange Name: RONN HINKLE MRN: [id number] Account: [id number] : 1985 Procedure Date: 09/17/2006 Document: [id number] documented in this encounter Plan of Treatment Not on filedocumented as of this encounter Visit Diagnoses Not on filedocumented in this encounter Care Teams Optomechanical Technician Relationship Specialty Start Date End Date Alejandro Denise MD PCP - General 09/24/01 02/05/14 [facility] [address] [place] [address] documented as of this encounter
--- OUTSIDE RECORDS SUMMARY | 2022-03-31 17:04 | XMS_ITS | Clinical Summary ---
:1985 Author Organization [facility] [place] [address] Care Team Providers Name Role Phone Jaz Shore RN Primary Care Provider Allergies No known active allergies Medications Medication Sig Dispensed Refills Start Date End Date Status hydroCHLOROthiazide 12.5 mg Take 12.5 mg 0 0 Active tablet by mouth once daily. lamoTRIgine (LAMICTAL) 100 0 06/04/2020 Active mg tablet lisinopriL (PRINIVIL; Take 20 mg by 0 04/26/2020 Active ZESTRIL) 20 mg tablet mouth once daily. 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 Chemo 2006 Resolved Problems Problem Noted Date Resolved Date Eosinophilic esophagitis 05/02/2009 06/28/2009 Inguinal hernia without mention of obstruction or gangrene, 05/02/2009 06/28/2009 unilateral or unspecified, (not specified as recurrent) Immunizations Name Administration Dates Next Due Influenza,LAIV4 Live Intranasal (Flumist) 03/01/2009 Td (Age >=7 Years) 11/29/2007 Td, Preservative Free (age >= 7 Years) 11/14/2018 Tdap 11/17/2011 Family History Medical History Relation Name Comments Good Health Brother 1 Good Health Brother 2 Hypertension Father Good Health Maternal Grandfather Good Health Maternal Grandmother Hypertension Mother Other Paternal Grandfather gastric can cer Other Paternal Uncle MS Good Health Sister Relation Name Status Comments Brother 1 Alive Brother 2 Alive Father Alive Maternal Grandfather Maternal Grandmother Alive Mother Alive Other Mounika / Alive Paternal Grandfather Paternal Grandmother Alive Paternal Uncle Alive Sister Alive Son Moshe Alive Social History Tobacco Use Types Packs/Day Years Used Date Never Smoker Smokeless Tobacco: Never Used Tobacco Cessation: Counseling Given: Yes Alcohol Use Standard Drinks/Week Comments Not Currently 0 (1 standard drink = 0.6 oz pure alcoho l) rare Alcohol Habits Answer Date Recorded How often do you have a drink containing alcohol? Not asked How many drinks containing alcohol do you have on a typical Not asked day when you are drinking? How often do you have six or more drinks on one occasion? No t asked Comment: rare 06/28/2009 Sex Assigned at Date Recorded Not on file Obstetrics History Last Filed Vital Signs Vital Sign Reading Time Taken Comments Blood Pressure 143/100 07/03/2020 2:05 PM BRICK LOADER Pulse 95 07/03/2020 2:05 PM BRICK LOADER Temperature 37.6 ??C (99.6 ??F) 02/02/2014 1:45 PM CDT Respiratory Rate 20 07/03/2020 2:05 PM BRICK LOADER Oxygen Saturation 97% 07/03/2020 2:05 PM BRICK LOADER Inhaled Oxygen Concentration - - Weight 97.3 kg (214 lb 7 oz) 07/25/2020 2:56 PM BRICK LOADER Height 170.2 cm (5' 7) 07/25/2020 2:56 PM BRICK LOADER Body Mass Index 33.59 07/25/2020 2:56 PM BRICK LOADER Plan of Treatment Health Maintenance Due Date Last Done Comments COVID-19 vaccine series (#1) 04/09/1985 Depression screening for age 12+ 1996 BMI (ht and wt on same day) for age 0510/07/2002 18+ Hepatitis C screening for age 18-79 2002 Lipids for age 35-44 10/08/2019 07/05/2009 Influenza for age 9-49 01/29/2022 03/01/2009 Tetanus booster 11/14/2028 11/14/2018, 11/17/2011, 11/29/2007 Tdap Completed 11/17/2011 Results Not on filefrom Last 3 Months Insurance Payer Benefit Plan / Subscriber ID Effective Phone Address T ype Group Dates COMMERCIAL COMMERCIAL [id number] 2008-Pres [phone] [address] [place] [address] MEDICARE - PB MEDICARE PB [id number] 2020-Prese ATTN: CLAIMS USE ONLY ONLY nt [address] [place] [address] [employer] [place] [employer] [id number] 2020-Prese [address] [address] [place] [address] Ronn Hinkle Third Democrat Self 1985 [id number] [phone] [place], [place] ([place]) [phone] Ronn Hinkle Workers Comp Self 1985 [id number] [phone] [place], [place] ([place]) [phone] [facility] 05/31/2000 [address] (Work) [address] [place] [address] Ronn Hinkle Personal/Family Self 1985 [id number] [phone] [place], [place] ([place]) [phone] Advance Directives Latest Code Status on File Code Status Date Activated Date Inactivated Comments Full Code 11/26/2009 5:20 PM 11/27/2009 4:20 PM Full Code 08/13/2006 7:54 AM 08/14/2006 2:06 AM Care Teams Timber Harvester Operator Relationship Specialty Start Date End Date Jaz Shore RN PCP - General Registered Nurse 01/25/[address] [place] [address]
[2022-03-31 17:05] LABS: Appearance Urine Clear (Clear); Bilirubin Urine Negative (Negative); Blood Urine Negative (Negative); Color Urine Yellow (Yellow); Glucose Urine Negative (Negative); Ketones Urine Negative (Negative); Leukocyte Esterase Urine Negative (Negative); Nitrite Urine Negative (Negative); Protein Urine Negative (Negative); Specific Gravity Urine >= 1.030 (1.000-1.030); Urobilinogen Urine 0.2 (0.2-1.0); pH Urine 5.5 (5.0-8.5)
[2022-03-31 17:12] LABS: RBC Urine 0-2 (0-2); WBC Urine 0-2 (0-5)
== END 2022-03-31 17:29 | disposition home or self-care (01) ==
PROVIDERS: Emergency Provider Emergency Medicine; PCP Physician Assistant Medical
DX: N45.1 Epididymitis (principal); Z85.47 Personal history of malignant neoplasm of testis; Z92.21 Personal history of antineoplastic chemotherapy
CPT/HCPCS: 76870; 81001; 93976; 99283; 99284

== ENCOUNTER 2022-09-09 11:11 | Emergency (ER) | payer BC, SELFPAY ==
[2022-09-09 11:27] VITALS: BP 138/83; PULSE 95; RESP 18; TEMP 36.6; O2SAT 99; BMI 36.5
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
--- NOTE | 2022-09-09 12:25 | ED_ITS ---
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 He is able to use his shoulders. He has no lower neurologic changes. He had no loss of conscious, no significant head injury. No loss of conscious by his report. He does report he has got aching and pain in the neck and head region. He has got history of hypertension, described in his chart fibromyalgia and fatigue obesity hypogonadism peripheral neuropathy history of blurry vision. Allergy to amlodipine Current meds are a blood pressure pill irbesartan hydrochlorothiazide combo. Patient reports he also had stage IV testicular cancer and had surgery as well as chemotherapy, from which she has fully recovered. Related Data Previous Rx's Medication Instructions Recorded irbesartan 150 1 tab PO QDAY #60 tabs 09/03/22 mg-hydrochlorothiazide 12.5 mg tablet celecoxib 200 mg capsule (Celebrex) 200 mg PO DAILY #7 caps 09/09/22 tramadol 100 mg tablet 100 mg PO DAILY PRN pain #7 tabs 09/09/22 Allergies Allergy/AdvReac Type Severity Reaction Status Date / Time amlodipine AdvReac Intermediate Edema Verified 09/09/22 11:27 Review of Systems Status of ROS: Reports: 6 or more systems reviewed and unremarkable except as noted in History and below [facility] Medical History B12 deficiency ?E53.8 - Deficiency of other specified B group vitamins (ICD-10) Blurry vision ?H53.8 - Other visual disturbances (ICD-10) Due for screening ?Z13.9 - Encounter for screening, unspecified (ICD-10) Encounter for postoperative care ?Z48.89 - Encounter for other specified surgical aftercare (ICD-10) History of antineoplastic chemotherapy ?Z92.21 - Personal history of antineoplastic chemotherapy (ICD-10) History of stress test ?Z92.89 - Personal history of other medical treatment (ICD-10) SOB (shortness of breath) ?R06.02 - Shortness of breath (ICD-10) Surgical History History of cholecystectomy ?Z90.49 - Acquired absence of other specified parts of digestive tract (ICD- 10) History of colonoscopy ?Z98.890 - Other specified postprocedural states (ICD-10) History of esophagogastroduodenoscopy (EGD) ?Z98.890 - Other specified postprocedural states (ICD-10) Status post orchiectomy ?Z90.79 - Acquired absence of other genital organ(s) (ICD-10) Social History Narrative: Marijuana use- medicinal Smoking Status: Never smoker Exam Narrative: Exam Narrative: Objective: The patient is alert orient x3 Vital signs unremarkable He has got a slightly swollen upper lid on the left eye. He has no obvious hyphema bilaterally His face is stable and symmetric His mouth is clear Neck is supple nontender in the midline does describe some mild cervical strap muscle tenderness and trapezius muscle tenderness bilaterally. Mild left facial tenderness over his zygoma and temporal area. Const: Vital Signs, click to edit/add: Vital Signs - 24 hr 09/09/22 11:27 Temperature 97.9 F Pulse Rate [Right Pulse Oximeter] 95 Respiratory Rate 18 Blood Pressure [Ri ght Upper Arm] 138/83 Pulse Oximetry 99 Oxygen Delivery Me thod Room Air Course Vital Signs Vital signs: Initial Vital Signs Temperature 97.9 F 09/09/22 11:27 Temperature Source Temporal Artery Scan 09/09/22 11:27 Pulse Rate 95 09/09/22 11:27 Pulse Rhythm Regular 09/09/22 11:27 Pulse Strength 3+ Normal 09/09/22 11:27 Respiratory Rate 18 09/09/22 11:27 Blood Pressure 138/83 09/09/22 11:27 Blood Pressure Mean 101 09/09/22 11:27 Blood Pressure Position Sitting 09/09/22 11:27 Pulse Oximetry 99 09/09/22 11:27 Oxygen Delivery Method Room Air 09/09/22 11:27 Vital Signs Temperature 97.9 F 09/09/22 11:27 Pulse Rate 95 09/09/22 11:27 Respiratory Rate 18 09/09/22 11:27 Blood Pressure 138/83 09/09/22 11:27 Pulse Oximetry 99 09/09/22 11:27 Oxygen Delivery Method Room Air 09/09/22 11:27 Temperature 97.9 F 09/09/22 11:27 Pulse Rate 95 09/09/22 11:27 Respiratory Rate 18 09/09/22 11:27 Blood Pressure 138/83 09/09/22 11:27 Pulse Oximetry 99 09/09/22 11:27 Oxygen Delivery Method Room Air 09/09/22 11:27 Medical Decision Making MDM Narrative Medical decision making narrative: 36-year-old male with a injury to left side of his face head and neck. I think at this point imaging would be appropriate including head CT, facial bone CT scan as well as cervical spine CT. I suspect that these will be unremarkable. Will give him some Toradol orally. He does need to drive home. Will given some medication for inflammation and discomfort at home pending on his CT scan reports. He was comfortable this plan. Would recommend that he take several days off and ice the affected areas with light activity and no heavy exertion. Addendum: The patient will have CTs done, his CT of his head, facial bones, and neck are negative. I think add he would benefit from some Celebrex 200 mg daily for the next 5-7 days, would recommend Ultram as needed for pain at night especially 1 or 2 q.h.s.. No driving or alcohol with the medication. Return to primary care in the next 2-3 days. Recommend to be off work for 3 days as well. Discharge Plan Discharge Clinical Impression: Head, face & neck injury Patient Disposition: Home w/ Parent or Adult Condition: Stable Additional Instructions: Recommend off work for 3 days, Celebrex and Ultram as needed. Ultram can be sed ating do not drink or drive with that medication. Ice to the affected areas, follow-up with primary care in 2-3 days for reassessment. Return to ED sooner problems or concerns. Activity Level: Light activity Discharge Diet: Heart Healthy (2 gm sodium, low fat) Prescriptions: New celecoxib [Celebrex] 200 mg capsule 200 mg PO DAILY Qty: 7 3RF tramadol 100 mg tablet 100 mg PO DAILY PRN (Reason: pain) Qty: 7 0RF No Action irbesartan-hydrochlorothiazide 150-12.5 mg tablet 1 tab PO QDAY Qty: 60 0RF Follow Up/Referrals: Allison Valentine PA-C [Physician Chief Lending Officer] - Stand Alone Forms: [employer] Info Instructions
[2022-09-09] MEDS: KETOROLAC 10 MG TABLET PO (12:55)
== END 2022-09-09 14:00 | disposition home or self-care (01) ==
PROVIDERS: Emergency Provider Family Medicine
DX: S09.93XA Unspecified injury of face, initial encounter (principal); S09.90XA Unspecified injury of head, initial encounter; S19.9XXA Unspecified injury of neck, initial encounter; W20.8XXA Other cause of strike by thrown, projected or falling object, initial encounter
CPT/HCPCS: 70450; 70486; 72125; 99284; 99285; A9270

== ENCOUNTER 2022-11-30 15:30 | Emergency (ER) | payer BC, SELFPAY ==
[2022-11-30 15:33] VITALS: BP 168/99; PULSE 100; RESP 20; TEMP 36.1; O2SAT 97; BMI 33.7
--- NOTE | 2022-11-30 16:04 | ED_ITS ---
HPI - Neck Pain/Injury General Chief Complaint: Neck Injury/Pain Stated Complaint: neck pain, double vision, dizzy Time Seen by Provider: 11/30/22 15:33 History of Present Illness HPI Narrative: This 37-year-old male comes in reporting chronic neck pain with associated headache. He reports some episodes of blurry vision or double vision and at times feels off balance with some lightheadedness. He is taking a medicine for blood pressure and has not measured his blood pressure recently. He does not report any unilateral weakness or altered sensation otherwise. He is able to ambulate normally. He states that he has been to a chiropractor to try to treat these symptoms but reports that her his symptoms have intensified recently. Related Data Previous Rx's Medication Instructions Recorded irbesartan 150 1 tab PO QDAY #60 tabs 09/03/22 mg-hydrochlorothiazide 12.5 mg tablet celecoxib 200 mg capsule (Celebrex) 200 mg PO DAILY #7 caps 09/09/22 tramadol 100 mg tablet 100 mg PO DAILY PRN pain #7 tabs 09/09/22 ketorolac 10 mg tablet 10 mg PO Q8H 5 days #15 tabs 11/30/22 ondansetron 4 mg disintegrating 4 mg PO Q6H #15 tabs 11/30/22 tablet Allergies Allergy/AdvReac Type Severity Reaction Status Date / Time amlodipine AdvReac Intermediate Edema Verified 11/30/22 15:38 Review of Systems Status of ROS: Reports: 10 or more systems reviewed and unremarkable except as noted in History and below Narrative: Constitutional: No fevers, no weight gain or loss. Eyes: No discharge. No vision changes. HENT: No congestion, no sore throat, no ear pain. Cardiovascular: No chest pain, no palpitations. Respiratory: No shortness of breath, no wheezes, no cough. Gastrointestinal: No abdominal pain, no vomiting, no diarrhea. Genitourinary: No dysuria, no hematuria. Musculoskeletal: Normal range of motion. Skin: No rashes, no pruritis. Neurological: No weakness, sensory change, speech change. Endo/Heme/Allergies: No bruising or bleeding. No polydipsia. Pysch: no suicidality, no anxiety, no insomnia. All other systems reviewed and are negative. [facility] Medical History B12 deficiency ?E53.8 - Deficiency of other specified B group vitamins (ICD-10) Blurry vision ?H53.8 - Other visual disturbances (ICD-10) Due for screening ?Z13.9 - Encounter for screening, unspecified (ICD-10) Encounter for postoperative care ?Z48.89 - Encounter for other specified surgical aftercare (ICD-10) History of antineoplastic chemotherapy ?Z92.21 - Personal history of antineoplastic chemotherapy (ICD-10) History of stress test ?Z92.89 - Personal history of other medical treatment (ICD-10) SOB (shortness of breath) ?R06.02 - Shortness of breath (ICD-10) Surgical History History of cholecystectomy ?Z90.49 - Acquired absence of other specified parts of digestive tract (ICD- 10) History of colonoscopy ?Z98.890 - Other specified postprocedural states (ICD-10) History of esophagogastroduodenoscopy (EGD) ?Z98.890 - Other specified postprocedural states (ICD-10) Status post orchiectomy ?Z90.79 - Acquired absence of other genital organ(s) (ICD-10) Social History Narrative: Marijuana use- medicinal Smoking Status: Never smoker Non-prescribed substance use: denies use Exam Narrative: Exam Narrative: Constitutional: Well-developed, well-nourished, no acute distress. HEENT: Normocephalic, atraumatic. Neck: Normal range of motion. Nontender. Supple. Heart: Regular. No murmurs. Normal rate. Intact distal pulses. Lungs: Clear to auscultation. No chest discomfort. No wheezes, rhonchi, or ral es. Abdomen: Normal bowel sounds. Nontender. No rebound tenderness. Genitalia: Deferred. Back: No midline tenderness. Normal range of motion. Extremities: Normal range of motion. No injury. Skin: Intact. No rash. Warm. No erythema or pallor. Neurologic: No altered sensation. No weakness. Alert and oriented. Tongue is midline. No facial asymmetry. Speech is normal. Xdfxxy-nu-liie is normal. No pronator drift. Public Housing Manager strength is equal bilaterally. He is able to raise each leg from the bed. Psychiatric: No suicidality. No anxiety or depression. No insomnia. Nursing notes and vitals signs are reviewed. Const: Vital Signs, click to edit/add: Vital Signs - 24 hr 11/30/22 15:33 Temperature 96.9 F L Pulse Rate [Pulse Oximeter] 100 Respiratory Rate 20 Blood Pressure [Ri ght Upper Arm] 168/99 H Pulse Oximetry 97 Oxygen Delivery Me thod Room Air Course Vital Signs Vital signs: Initial Vital Signs Temperature 96.9 F L 11/30/22 15:33 Temperature Source Temporal Artery Scan 11/30/22 15:33 Pulse Rate 100 11/30/22 15:33 Pulse Rhythm Regular 11/30/22 15:33 Pulse Strength 0+ Absent 11/30/22 15:33 Respiratory Rate 20 11/30/22 15:33 Blood Pressure 168/99 H 11/30/22 15:33 Blood Pressure Mean 122 H 11/30/22 15:33 Blood Pressure Position Sitting 11/30/22 15:33 Pulse Oximetry 97 11/30/22 15:33 Oxygen Delivery Method Room Air 11/30/22 15:33 Vital Signs Temperature 96.9 F L 11/30/22 15:33 Pulse Rate 100 11/30/22 15:33 Respiratory Rate 20 11/30/22 15:33 Blood Pressure 168/99 H 11/30/22 15:33 Pulse Oximetry 97 11/30/22 15:33 Oxygen Delivery Method Room Air 11/30/22 15:33 Temperature 96.9 F L 11/30/22 15:33 Pulse Rate 100 11/30/22 15:33 Respiratory Rate 20 11/30/22 15:33 Blood Pressure 168/99 H 11/30/22 15:33 Pulse Oximetry 97 11/30/22 15:33 Oxygen Delivery Method Room Air 11/30/22 15:33 MDM - Neck Pain/Injury MDM Narrative Medical decision making narrative: This patient comes in with chronic neck pain and associated tension headache and occasional migraine headaches. His neurologic exam is completely normal. There may be a place for CT imaging of his head and C-spine however today the CT scanner is not functioning. He is not tripping any triggers that mandate such imaging at this time. I did discuss treatment options and the patient is agreeable to a therapeutic injection of lidocaine and a steroid on both sides of the nuchal ligament overlying the occipital nerves. A mixture of 1% lidocaine and 10 mg of dexamethasone were split equally on either side of the nuchal ligament. About 3 mL was injected on each side. The patient tolerated this procedure well. He is okay to return home. He did received prescription for Toradol and Zofran. Discharge Plan Discharge Clinical Impression: Tension headache, Neck pain, chronic Patient Disposition: Home, Self-Care Condition: Stable Additional Instructions: Take medication as needed and indicated. Activity as tolerated. Follow up with MD return if worsening. Prescriptions: New ketorolac 10 mg tablet 10 mg PO Q8H 5 Days Qty: 15 0RF ondansetron 4 mg tablet,disintegrating 4 mg PO Q6H Qty: 15 0RF No Action irbesartan-hydrochlorothiazide 150-12.5 mg tablet 1 tab PO QDAY Qty: 60 0RF celecoxib [Celebrex] 200 mg capsule 200 mg PO DAILY Qty: 7 3RF tramadol 100 mg tablet 100 mg PO DAILY PRN (Reason: pain) Qty: 7 0RF Follow Up/Referrals: Provider,Not a Local [Primary Care Provider] - Stand Alone Forms: Jade Magnetth Info Instructions
--- OUTSIDE RECORDS SUMMARY | 2022-11-30 16:14 | XMS_ITS | Continuity of Care Document ---
Author Name Unknown Organization [facility] Address [address] [address] [place] [address] Phone Care Team Providers Care Retail Cosmetics Sales Beauty Advisor Name Role Phone Mikael BAEZA, Buck Unavailable Unavailable Allergies, Adverse Reactions, Alerts Substance Reaction Status Criticality No Known Allergies Active No Inform ation Medications Medication Instructions Dosage Effective Dates (start - stop) Status Comments Maalox Advanced 1,000 mg-60 mg chewable tablet - Active omeprazole 40 mg capsule,delayed release take 1 by Oral route every day Take 30 minutes before breakfast. 1 - Active Maalox Advanced 200 mg-200 mg-20 mg/5 mL oral suspension take 10 milliliter by oral route between meals and at bedtime as needed 10.00 milliliter - Active Procedures Procedure Date Offic/outpt E&m New Mod Sever 6 Dilat Esoph-sound/bougie-/mx 7 Ugi Endo; W/bx /mx Colonoscopy Flex; W/bx 1/mx Offic Cons New/estab Mod-hi 60 07 Offic Cons New/estab Low 30 Mi 07 Sigmoidoscopy Flex; W/bx /mx 7 Advance Directives Directive Yes / No Effective Date File Name No Information Encounters Encounter Description Practice Location Reason(s) For Visit Diagnoses Date Provider Providers Copied on Encounter Offic/outpt E&m New Mod Sever [facility], [address] [address], [place], [id number], [place] tel:[phone] [facility] GI Symptoms or Concerns (chief complaint) Right upper quadrant abdominal painGastroesophageal reflux disease without esophagitisDietary counseling and surveillanceEssentia l (primary) hypertension 6 Mikael Jane. [address], [place], [place], [id number] , [place]. tel: [phone] Referring Provider: Referral Self. [facility], [address] [address], [place], [id number], [place] tel:[phone] No Information 7 Yulia Cristina. [address], [facility] [place], [id number] , [place]. tel: [phone] Offic Cons New/estab Mod-hi 60 [facility], [address] [address], [place], [id number], [place] tel:[phone] [facility] DiarrheaLLQ PainDysphagiaHeartbu rn 7 Yulia Cristina. [address], [facility] [place], [id number] , [place]. tel: [phone] Offic Cons New/estab Low 30 Mi [facility], [address] [address], [place], [id number], [place] tel:[phone] [facility] No Information 7 Carlos Stoddard. [address], [facility] [address], [place], [place], [id number] , [place]. tel: [phone] Referring Provider: Jorge Olivares MD, [address] [place], [address]. tel:[phone] Family History Family Member Type Diagnosis Age At Onset Mother Problem (finding) Alive and well Sister Problem (finding) Alive and well Son Problem (finding) Alive and well Father Problem (finding) Alive and well Brother Problem (finding) Alive and well Payers Payer name Insurance type Covered democrat ID Authoriza tion(s) No Information Social History Type Description Quantity Date Captured Comments Alcohol Use Details No Caffeine Use Details Unknown Tobacco Use Status Never smoked tobacco 2015 Smoking Status Never smoker Non-Smoking Tobacco Use Details : No Details Available : No Details Available Sex Male Vital Signs Date / Time: Height Weight BMI Pulse Rate Blood Pressure Temperature Respiratory Rate Body Surface Area Head Circumference Head Circ. Percentile Wt./Shaun. Percentile BMI percentile Pulse Ox Inhaled Ox 2:21 PM 67.00 in 91.626 kg (202.00 lbs) 31.6 4 kg/m eter (2) 82 /min 148/95 mm[Hg] Chief Complaint And Reason For Visit From encounter dated '08/26/2015 14:30'. GI Symptoms or Concerns (chief complaint). Description: A complete history and physical exam and review of systems was obtained in the clinic today and recorded on our electronic medical record. Please see my assessment and plan below.I had the pleasure of meeting Mr. Ronn Hinkle, a 29-year-old gentleman with a history of testicular cancer in 1998, status post orchiectomy as well as other abdominal surgery, the testicular cancer went to his spine, so he did have some spinal surgery as well, who presents to GI Clinic with a complaint of abdominal pain.Mr. Hinkle notes that he has had some various abdominal pains for many years and in fact in 2006 a consult in our system is noted for complaint of stomach problems. What he describes more recently is that around late April and early May 2015, he had a fall while on the ice and he said that he hurt his back and pelvis. He said after this time, he developed a right upper quadrant abdominal pain. He points to above his right costal margin as the location of the pain, although the pain does extend down beneath the costal margin as well. He says the pain is worse with movement such as when he is at physical therapyor when he takes a deep breath. The pain can also be worse with palpation of the ribs or beneath the rib cage. He says that eating does not necessarily make the pain worse.Because of the pain, he wasevaluated in the emergency department at [facility] where he had a CT scan performed which was normal of the abdomen and pelvis. He also had basic blood testing there which I do not have in front of me today, but he reports that it was normal as well. He was given a GI cocktail and hesaid that this did not help and in fact, since he had had the GI cocktail, he has had symptoms of acid reflux.He does use medical cannabis periodically, but he says this is not something he does on adaily basis, nor does he do this for the abdominal pain per se, but more for other spastic-like pain.He does have some nausea with the abdominal pain, but no vomiting. His bowel habits are generally normal. His weight has been stable. No fevers. Reason For Referral Reason For Referral No Information Plan Of Treatment Date Type Action Status Goal Lifestyle education regardin g diet completed History Of Present Illness Encounter Date Complaint History Of Prese nt Illness GI Symptoms or Concerns A comple te history and physical exam and review of systems was obtained in the clinic today and recorded on our electronic medical record. Please see my assessment and plan below.I had the pleasure of meeting Mr. Ronn Hinkle, a 29-year-old gentleman with a history of testicular cancer in 1998, status post orchiectomy as well as other abdominal surgery, the testicular cancer went to his spine, so he did have some spinal surgery as well, who presents to GI Clinic with a complaint of abdominal pain.Mr. Hinkle notes that he has had some various abdominal pains for many years and in fact in 2006 a consult in our system is noted for complaint of stomach problems. What he describes more recently is that around late April and early May 2015, he had a fall while on the ice and he said that he hurt his back and pelvis. He said after this time, he developed a right upper quadrant abdominal pain. He points to above his right costal margin as the location of the pain, alt Functional Status Date Functional Assessmen t No Information Instructions Date Instruction Additional Infor sushma 1. Reassurance about abdominal pain, suspect this is more neuropathic related to previous spine surgery.2. Sent prescription for omeprazole and Maalox to his pharmacy for acid reflux symptoms.3. Mr. Hinkle knows to call me if he has any questions or concerns and can return to clinic on an as-needed basis.Thank you so much for involving me in the care of Mr. Hinkle. Related to Right upper quadrant abdominal pain Lifestyle education regarding di et Related to Dietary counseling and surveillance Assessments Type Assessment Date assessment Right upper quadrant abdominal p ain assessment Gastroesophageal reflux disease without esophagitis assessment Dietary counseling and surveilla nce assessment Essential (primary) hypertension impression Mr. Hinkle is a 29-ye ar-old gentleman with a history of testicular cancer with a fairly extensive surgery as well as neoadjuvant chemotherapy as well as adjuvant chemotherapy, who has a complaint of abdominal pain and also complaint of acid reflux.With regard to the abdominal pain, I suspect this is more neuropathic pain. When I examined him today, the pain seemed to be focused more within the lower ribs than beneath the costal margin. He did have some various other aches and pains when I was palpating various parts of his body. Again, I do not think that his symptoms are related to GI tract pain per se, and I am reassured by the fact that he has no other GI symptoms. The pain does not get worse when he is eating. There is no vomiting. His bowel habits are normal. An interesting point was also that he said when he had an adjustment from a chiropractor, he thought that the right upper quadrant abdominal pain got better. I am also reassured by the normal CT scan and blood testing. It should be noted that he did have a cholecystectomy in the past.With regard to the acid reflux symptoms, I did suggest that he could try something like omeprazole and I have sent a prescription to his pharmacy. He said he has been using Maalox with good relief as well and asked me to send a prescription for this to his pharmacy, which I have done.I did suggest to him that he could try something like Lyrica, he said he had a bad reaction to gabapentin in the past. He does not smoke marijuana on a daily basis, so I do not think he is having any sort of cyclic cannabinoid syndrome from his marijuana smoking. Mental Status Date Cognitive Assessment Orientation - [place] ed to time, place, person, situation. Patient Care Teams Name Effective Dates (start - stop) Status Members No Information
[2022-11-30 16:50] VITALS: BP 160/98; PULSE 88; RESP 16; TEMP 36.2; O2SAT 96
== END 2022-11-30 16:51 | disposition home or self-care (01) ==
PROVIDERS: Emergency Provider Emergency Medicine Emergency Medical Services
DX: G44.209 Tension-type headache, unspecified, not intractable (principal); M54.2 Cervicalgia
CPT/HCPCS: 64405; 99283; 99284

== ENCOUNTER 2023-06-08 15:15 | Outpatient (CLI) | payer OTHER, SELFPAY ==
--- OUTSIDE RECORDS SUMMARY | 2023-06-08 15:21 | XMS_ITS | Continuity of Care Document ---
Author Name Unknown Organization [facility] Address [address] [place] [address] Phone Care Team Providers Care Copper Miner Blasting Name Role Phone Jonnie Goetz MD Unavailable Unavailable Medications Medication Instructions Dosage Effective Dates (start - stop) Status Comments IBUPROFEN 200MGTABLET Unknown sig code, RX from another provider - No Longer Active Procedures Procedure Date Offic/outpt E&m Estab Low-mod 9 Inj Not Lytic-epidur; Lumb/sac 09 Fluoroscopic Guidance For Needle Placeme nt - Spine Offic/outpt E&m Estab Mod-hi 2 09 Offic/outpt E&m Estab Mod-hi 2 09 1 Limb EMG Motor NCV W/F-wave Sensory NCV H-reflex Amp Study; Gastnem/so 09 Offic Cons New/estab Mod-hi 60 09 Advance Directives Directive Yes / No Effective Date File Name No Information Encounters Encounter Description Practice Location Reason(s) For Visit Diagnoses Date Provider Providers Copied on Encounter [facility], [address], [place], [place], [id number], [place] tel:[phone] [facility] No Information 9 Sofy Cristina. [address], [place], [place], [id number], [place]. tel:[phone] Referring Provider: Dara Jimenez MD, [place], [address]. tel:[phone] Offic/outpt E&m Estab Low-mod Naldo, [facility], [address], [id number], tel:[phone] [facility] No Information Oct-3 0-200 9 Dang Riggs. [address] [place], [address]. tel:[phone] Referring Provider: Dara Jimenez MD, [place], [address]. tel:[phone] Naldo, [facility], [address], [id number], tel:[phone] [facility] No Information Oct-0 1200 9 No Information Offic/outpt E&m Estab Mod-hi 2 Naldo, [facility], [address] [address], [place], [place], [id number], tel:[phone] [facility] No Information 0 1 9 Dang Riggs. [address] [place], [address]. tel:[phone] Referring Provider: Dara Jimenez MD, [place], [address]. tel:[phone] Offic/outpt E&m Estab Mod-hi 2 Naldo, [facility], [address], [id number], [place] tel:[phone] [facility] No Information 2 200 9 Dang Riggs. [address] [place], [address]. tel:[phone] Referring Provider: Dara Jimenez MD, [place], [address]. tel:[phone] Naldo [facility], [address] [place], [id number], tel:[phone] [facility] No Information 9 RN RN. [address], [place], [place], [id number], [place]. tel:[phone] Referring Provider: Dara Jimenez MD, [place], [address]. tel:[phone] Offic Cons New/estab Mod-hi 60 Naldo, [facility], [address], [place], [place], [id number], tel:[phone] [facility] No Information 9 Dang Riggs. [address] [facility] [place], [address]. tel:[phone] Referring Provider: Dara Jimenez MD, [place], [address]. tel:[phone] Family History Family Member Type Diagnosis Age At Onset No Information Payers Payer name Insurance type Covered constitution party ID Authorashishronaldo gerriandre(s) [facility] [place] [id number] Social History Type Description Quantity Date Captured Comments Sex Male Smoking Status No Information Chief Complaint And Reason For Visit No Information Reason For Referral Reason For Referral No Information History Of Present Illness Encounter Date Complaint History Of Prese nt Illness No Information Functional Status Date Functional Assessmen t No Information Instructions Date Instruction Additional Infor mation No Information Assessments Type Assessment Date No Information Patient Care Teams Name Effective Dates (start - stop) Status Members No Information
--- OUTSIDE RECORDS SUMMARY | 2023-06-08 15:21 | XMS_ITS | Continuity of Care Document ---
Author Name Unknown Organization [facility] Address [address] [place] [address] Phone Care Team Providers Care Medical Logistics Specialist Name Role Phone [facility], [facility] Unavailable Un available Procedures Procedure Date Lo Osm Contr Mat (200-249mg) Depomedrol 80mg Marcaine 30ml Epidural Needle Epidural Tray Inj Not Lytic-epidur; Lumb/sac Fluoro Guidance - Spine Advance Directives Directive Yes / No Effective Date File Name No Information Encounters Encounter Description Practice Location Reason(s) For Visit Diagnoses Date Provider Providers Copied on Encounter [facility], [address], [place], [address], [place] tel:[phone] [facility] No Information [facility]. [address], [place], [address], [place]. Family History Family Member Type Diagnosis Age At Onset No Information Payers Payer name Insurance type Covered republican ID Authoriza albaro(s) [facility] INS Auto [place] [id number] Social History Type Description Quantity Date Captured [...]
--- OUTSIDE RECORDS SUMMARY | 2023-06-08 15:22 | XMS_ITS | Encounter Summary ---
Author Name Unknown Organization [facility] Address [facility] [place] [address] Care Team Providers Care Saw Runner Name Role Phone Carlos Chapman MD Primary Care Provider + Carlos Chapman MD Unavailable [phone] Carlos Chapman MD Unavailable [phone] [facility]- Primary Care Provider Encounter Details Date Type Department Care Team (Late st Contact Info) Description 02/15/2017 [facility] Medical Advice [address] [facility] [facility] [address] [place] [address] [place] [address] [address] [place] [address] Social History Tobacco Use Types Packs/Day Years Used Date Smoking Tobacco: Light Smoker Pipe Smokeless Tobacco: Never Alcohol Use Standard Drinks/Week Comments Yes 0 (1 standard drink = 0.6 oz pur e alcohol) couple drinks per month Sex and Gender Information Value Date Recorded Sex Assigned at Not on file Gender Identity Not on file Sexual Orientation Not on file documented as of this encounter Plan of Treatment Not on file documented as of this encounter Visit Diagnoses Not on filedocumented in this encounter Additional Health Concerns Assessment Noted Time PHQ-9 Depression Total Score: 5 03/20/20 16 7:18 AM CDT documented as of this encounter Care Teams Saw Runner Relationship Specialty Start Date End Date Carlos Chapman MD PCP - General Family Practice 02/06/14 04/29/19 [place] [address] [address] [address] PCP - Assigned PCP 06/28/16 08/02/18 [facility]- [address] [place] [address] PCP - General 04/30/19 [place] [address] [address] [address] Assigned PCP 06/28/16 02/24/20 documented as of this encounter
--- OUTSIDE RECORDS SUMMARY | 2023-06-08 15:22 | XMS_ITS | Encounter Summary ---
Author Name Unknown Organization [place] Address [address] [place] [address] Care Team Providers Care Sheet Heater Name Role Phone Carlos Chapman MD Primary Care Provider + Aida Hdz Unavailable [phone] Carlos Chapman MD Unavailable [phone] Carlos Chapman MD Unavailable [phone] [facility]- Primary Care Provider Reason for Visit * Reason Onset Date Comments Referral 11/13/2015 Dr. Medel Encounter Details Date Type Department Care Team (Late st Contact Info) Description 11/13/[address] [id number] Pain Management Program, [facility] Referral (Dr. Medel) Social History Tobacco Use Types Packs/Day Years Used Date Smoking Tobacco: Never Smokeless Tobacco: Never Alcohol Use Standard Drinks/Week Comments Yes 0 (1 standard drink = 0.6 oz pur e alcohol) 2 mixed drinks, 2-3 days week Sex and Gender Information Value Date Recorded Sex Assigned at Not on file Gender Identity Not on file Sexual Orientation Not on file documented as of this encounter Miscellaneous Notes * Telephone Encounter - Alivia Matias - 11/13/2015 12:23 PM CDT Called patient to schedule [address] Medel. Alivia Matias Assignment Clerk [facility] documented in this encounter Plan of Treatment Not on file documented as of this encounter Visit Diagnoses Not on filedocumented in this encounter Care Teams Sheet Heater Relationship Specialty Start Date End Date Carlos Chapman MD PCP - General Family Practice 02/06/14 04/29/19 [place] [address] [address] [address] PCP - Assigned PCP 06/28/16 08/02/18 [facility]- [address] [address] PCP - General 04/30/19 Aida Hdz [facility] Leather Sprayer [employer] In[employer] Channeler - Clinical 12/12/15 01/21/17 [place] [address] [address] [address] Assigned PCP 06/28/16 02/24/20 documented as of this encounter
--- OUTSIDE RECORDS SUMMARY | 2023-06-08 15:22 | XMS_ITS | Clinical Summary ---
Author Name Unknown Organization [employer] Address [place], [place] [address] Care Team Providers Care Asbestos Cloth Inspector Name Role Phone Jaz Shore RN Primary Care Provider [phone] Allergies No known active allergies Medications Medication Sig Dispensed Refills Start Date End Date Status hydroCHLOROthiazide 12.5 mg tablet Take 12.5 mg by mouth once daily. 0 04/26/2020 Active lamoTRIgine (LAMICTAL) 100 mg tablet 0 06/04/2020 Active lisinopriL (PRINIVIL; ZESTRIL) 20 mg tablet Take 20 mg by mouth once daily. 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 3 mixed Cell Chemo 2006 Resolved Problems Problem Noted Date Diagnosed Date Resolved Date Eosinophilic esophagitis 05/02/2009 Inguinal hernia without ment ion of obstruction or gangrene, unilateral or unspecified, (not specified as recurrent) 05/02/2009 06/28/2009 Immunizations Name Administration Dates Next Due Influenza,LAIV4 Live Intranasal (Flumist) 2008 Td (Age >=7 Years) 11/29/2007 Td, Preservative Free (age >= 7 Years) 9 Tdap 11/17/2011 Family History Medical History Relation Name Comments Good Health Brother 1 Good Health Brother 2 Hypertension Father Good Health Maternal Grandfather Good Health Maternal Grandmother Hypertension Mother Other Paternal Grandfather gastric cancer Other Paternal Uncle MS Good Health Sister Relation Name Status Comments Brother 1 Alive Brother 2 Alive Father Alive Maternal Grandfather Maternal Grandmother Alive Mother Alive Other Mounika / Alive Paternal Grandfather Paternal Grandmother Alive Paternal Uncle Alive Sister Alive Son Moshe Alive Social History Tobacco Use Types Packs/Day Years Used Date Smoking Tobacco: Never Smokeless Tobacco: Never Tobacco Cessation:Counseling Given: Yes Alcohol Use Standard Drinks/Week Comments Not Currently 0 (1 standard drink = 0.6 oz pur e alcohol) rare Sex and Gender Information Value Date Recorded Sex Assigned at Not on file Gender Identity Not on file Sexual Orientation Not on file Obstetrics History Last Filed Vital Signs Vital Sign Reading Time Taken Comments Blood Pressure 143/100 07/03/2020 2:05 PM HOT MILL OPERATOR Pulse 95 07/03/2020 2:05 PM HOT MILL OPERATOR Temperature 37.6 ??C (99.6 ??F) 02/02/2014 1:45 PM CD T Respiratory Rate 20 07/03/2020 2:05 PM HOT MILL OPERATOR Oxygen Saturation 97% 07/03/2020 2:05 PM HOT MILL OPERATOR Inhaled Oxygen Concentration - - Weight 97.3 kg (214 lb 7 oz) 07/25/2020 2:56 PM HOT MILL OPERATOR Height 170.2 cm (5' 7) 07/25/2020 2:56 PM HOT MILL OPERATOR Body Mass Index 33.59 07/25/2020 2:56 PM HOT MILL OPERATOR Plan of Treatment Health Maintenance Due Date Last Done Comments COVID-19 vaccine series (#1) 04/09/1985 Depression screening for age 12+ 1996 HIV for age 15-65 10/08/1999 BMI (ht and wt on same day) for age 18+ 2002 Hepatitis C screening for ag e 18-79 2002 Lipids for age 35-44 10/08/2019 07/05/2009 Influenza for age 9-49 01/29/2023 03/01/2009 Tetanus booster 11/14/2028 11/14/2018, 11/17/2011, 11/29/2007 Tdap Completed 11/17/2011 Pneumococcal series for age 6-64 Aged Out No longer eligible b ased on patient's age to complete this topic Advance Directives Latest Code Status on File Code Status Date Activated Date Inactivated Comments Full Code 11/26/2009 5:20 PM 11/27/2009 4:20 PM Code Status History Code Status Date Activated Date Inactivated Comments Full Code 08/13/2006 7:54 AM 08/14/2006 2:06 AM Care Teams Asbestos Cloth Inspector Relationship Specialty Start Date End Date Jaz Shore, RN [address] [place] [address] PCP - General Registered Nurse 01/25/19
--- OUTSIDE RECORDS SUMMARY | 2023-06-08 15:22 | XMS_ITS | Referral Summary ---
Author Name Unknown Organization [facility] Address [address] [place] [address] Care Team Providers Care Scalder Name Role Phone [facility]- Primary Care Provider Allergies Active Allergy Reactions Criticality Noted Date Comments Seasonal Allergies 09/02/2016 Medications Medication Sig Dispensed Refills Start Date End Date Status medical cannabis oral liquid (Patient's own supply. Not a prescription)Indica tions:Polymyalgia (H24),Cisplatin induced neuropathy (H24) 100 mLs (This is NOT a prescription, and does not certify that the patient has a qualifying medical condition for medical cannabis. The purpose of this order is to document that the patient reports taking medical cannabis.) 0 Information only 0 Active alum & mag hydroxide-simethico ne (MYLANTA/MAALOX) 200-200-20 MG/5ML SUSP Take 30 mLs by mouth every 4 hours as needed for indigestion 355 mL 0 08/07/2015 Active Additional Information Patient not taking.Reported on 02/17/2017 acetaminophen (TYLENOL) 325 MG tablet Take 2 tablets (650 mg) by mouth every 6 hours as needed 40 tablet 0 10/23/2015 Active Additional Information Patient not taking.Reported on 02/17/2017 ibuprofen (ADVIL,MOTRIN) 200 MG tabletIndications:C isplatin induced neuropathy (H24) Take 3 tablets (600 mg) by mouth every 6 hours as needed 100 tablet 3 02/10/2016 Active medical cannabis oral liquid (Patient's own supply. Not a prescription) 0 Information only 0 Active cetirizine HCl 10 MG CAPSIndications:Oth er acute nonsuppurative otitis media of left ear Take 1 capsule by mouth daily as needed 30 capsule 1 06/12/2016 Active Additional Information Patient not taking.Reported on 02/17/2017 cholecalciferol (VITAMIN D3) 62584 UNITS capsuleIndications: Vitamin D deficiency Take 1 capsule (50,000 Units) by mouth once a week 12 capsule 3 08/17/2016 Active Additional Information Patient not taking.Reported on 02/17/2017 fluticasone (FLONASE) 50 MCG/ACT sprayIndications:Se asonal allergic rhinitis, unspecified allergic rhinitis trigger [place] 1-2 sprays into both nostrils daily 1 Bottle 3 08/17/2016 Active ibuprofen (ADVIL/MOTRIN) 600 MG tabletIndications:O ther acute nonsuppurative otitis media of left ear TAKE 1 TABLET BY MOUTH EVERY 6 HOURS NEEDED FOR MODERATE PAIN 30 tablet 3 10/28/2016 Active Additional Information Patient not taking.Reported on 02/17/2017 chlorthalidone (HYGROTON) 25 MG tabletIndications:B enign essential hypertension Take 1 tablet (25 mg) by mouth daily 30 tablet 1 02/17/2017 Active methocarbamol (ROBAXIN) 750 MG tablet Take 1 tablet (750 mg) by mouth 4 times daily as needed for muscle spasms 15 tablet 0 10/03/2019 Active labetalol (NORMODYNE) 200 MG tablet Take 1 tablet (200 mg) by mouth 2 times daily 30 tablet 0 08/13/2022 Active amLODIPine (NORVASC) 10 MG tablet Take 1 tablet (10 mg) by mouth daily 30 tablet 0 08/13/2022 Active Active Problems Patient Care Coordination No te Formatting of this note migh t be different from the original. [email or web address] Problem Noted Date Diagnosed Date CARDIOVASCULAR SCREENING; LDL GOAL LESS THAN 160 08/04/2016 Hearing loss of both ears 08/04/2016 Vitamin [...] Clinic evaluation in the past: Yes Date/Location: [facility] 11/2014 and new referral 10/2015 DIRE Total Score(s): No flowsheet data found. 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 Dizziness 03/09/2014 Health Assisted 03/06/2014 Overview: Status: Resources provided Conche Operator: Ammy Olivera RN [phone], Susan Garcia SW [phone] (no active care coordination) See Letters for [facility] Emergency Care Plan Date: March 06, 2014 Muscle stiffness 02/21/2014 H/O testicular cancer 10/26/2012 Overview: S/p L orchiectomy Resolved Problems Problem Noted Date Diagnosed Date Resolved Date Bilateral low back pain, wit h sciatica presence unspecified 06/26/2015 07/03/2015 CARDIOVASCULAR SCREENING; LD L GOAL LESS THAN 160 10/25/2012 06/03/2016 Low back pain 08/21/2009 10/17/2009 Ankle pain 09/28/2008 08/21/2009 Pain in joint, ankle and foot 06/13/2008 09/05/2008 Brachial neuritis or radiculitis 02/10/2005 08/21/2009 Overview: Problem list name updated by automated process. Provider to review iamLUMB/LUMBOSAC DISC DEGEN 02/10/2005 08/21/2009 Immunizations Name Administration Dates Next Due Influenza (IIV3) PF 03/01/2009,04/26/2001 Influenza Vaccine >6 months,quad, PF 04/06/2014 MMR 01/23/1997 TD,PF 7+ (Tenivac) 11/29/2007,01/23/1997 TDAP (Adacel,Boostrix) 11/17/2011 TDAP Vaccine (Adacel) 10/26/2012 Social History Tobacco Use Types Packs/Day Years Used Date Smoking Tobacco: Never Pipe Smokeless Tobacco: Never Tobacco Cessation:Counseling Given: No Alcohol Use Standard Drinks/Week Comments Yes 1 (1 standard drink = 0.6 oz pure alcohol) Alcoholic Drinks/day: Social drinker. 1 every couple months. PHQ-2 Answer Date Recorded PHQ-2 Score 0 06/08/2018 Adolescent Education Answer Date Record ed Getting School Help Needed Not on file 03/16 Sex and Gender Information Value Date Recorded Sex Assigned at Not on file Gender Identity Not on file Sexual Orientation Not on file Last Filed Vital Signs Vital Sign Reading Time Taken Comments Blood Pressure 168/116 08/25/2022 6:07 PM CDT Pulse 103 08/25/2022 6:07 PM CDT Temperature 36.8 ??C (98.2 ??F) 08/25/2022 6:07 PM CD T Respiratory Rate 20 08/25/2022 6:07 PM CDT Oxygen Saturation 96% 08/25/2022 6:07 PM CDT Inhaled Oxygen Concentration - - Weight 99.8 kg (220 lb) 08/25/2022 6:07 PM CDT Height 170.2 cm (5' 7) 08/25/2022 6:07 PM CDT Body Mass Index 34.46 08/25/2022 6:07 PM CDT Plan of Treatment Not on file Advance Directives For more information, please contact: [phone] Documents on File Type Date Recorded Patient Oral Surgery Technician Expl anation Advance Directives and Living Will 01/14/2016 11:14 AM RESUSCITATION GUIDELINES 01/08/2016 Latest Code Status on File Code Status Date Activated Date Inactivated Comments Full Code 01/10/2016 4:04 PM 04/30/2019 4:34 PM Care Teams Scalder Relationship Specialty Start Date End Date [facility]- [address] [place] [address] PCP - General 04/30/19
--- OUTSIDE RECORDS SUMMARY | 2023-06-08 15:22 | XMS_ITS | Encounter Summary ---
Author Name Unknown Organization [place] Address [facility] [place] [address] Care Team Providers Care Wafer Fabrication Operator Name Role Phone [facility]- Primary Care Provider Reason for Visit * Reason Comments Leg Swelling Hypertension Encounter Details Date Type Department Care Team (Late st Contact Info) Description 08/25/2022 5:55 PM CDT - 08/25/2022 6:31 PM CDT Emergency [facility] [address] [place] [address] Jose Alfredo Brooks [place] [address] [place] [address] [phone] Discharge Disposition: Left Without Being Seen Social History Tobacco Use Types Packs/Day Years Used Date Smoking Tobacco: Never Pipe Smokeless Tobacco: Never Alcohol Use Standard Drinks/Week Comments Yes 1 (1 standard drink = 0.6 oz pure alcohol) Alcoholic Drinks/day: Social drinker. 1 every couple months. PHQ-2 Answer Date Recorded PHQ-2 Score 0 06/08/2018 Sex and Gender Information Value Date Recorded Sex Assigned at Not on file Gender Identity Not on file Sexual Orientation Not on file COVID-19 Exposure Response Date Recorded In the last 10 days, have yo u been in contact with someone who was confirmed or suspected to have Coronavirus/COVID-19? No / Unsure 08/25/2022 5:56 PM CDT documented as of this encounter Last Filed [...] Mass Index 34.46 08/25/2022 6:07 PM CDT documented in this encounter Medications at Time of Discharge Medication Sig Dispensed Refills Start Date End Date acetaminophen (TYLENOL) 325 MG tablet Take 2 tablets (650 mg) by mouth every 6 hours as needed 40 tablet 0 10/23/2015 alum & mag hydroxide-simethicone (MYLANTA/MAALOX) 200-200-20 MG/5ML SUSP Take 30 mLs by mouth every 4 hours as needed for indigestion 355 mL 0 08/07/2015 amLODIPine (NORVASC) 10 MG tablet Take 1 tablet (10 mg) by mouth daily 30 tablet 0 08/13/2022 cetirizine HCl 10 MG CAPSIndications:Other acute nonsuppurative otitis media of left ear Take 1 capsule by mouth daily as needed 30 capsule 1 06/12/2016 chlorthalidone (HYGROTON) 25 MG tabletIndications:Bayron ign essential hypertension Take 1 tablet (25 mg) by mouth daily 30 tablet 1 02/17/2017 cholecalciferol (VITAMIN D3) 02419 UNITS capsuleIndications:Vi tamin D deficiency Take 1 capsule (50,000 Units) by mouth once a week 12 capsule 3 08/17/2016 fluticasone (FLONASE) 50 MCG/ACT sprayIndications:Seas onal allergic rhinitis, unspecified allergic rhinitis trigger [place] 1-2 sprays into both nostrils daily 1 Bottle 3 08/17/2016 ibuprofen (ADVIL,MOTRIN) 200 MG tabletIndications:Cis platin induced neuropathy (H24) Take 3 tablets (600 mg) by mouth every 6 hours as needed 100 tablet 3 02/10/2016 ibuprofen (ADVIL/MOTRIN) 600 MG tabletIndications:Oth er acute nonsuppurative otitis media of left ear TAKE 1 TABLET BY MOUTH EVERY 6 HOURS NEEDED FOR MODERATE PAIN 30 tablet 3 10/28/2016 labetalol (NORMODYNE) 200 MG tablet Take 1 tablet (200 mg) by mouth 2 times daily 30 tablet 0 08/13/2022 medical cannabis oral liquid (Patient's own supply. Not a prescription) 0 Information only 0 medical cannabis oral liquid (Patient's own supply. Not a prescription)Indicati ons:Polymyalgia (H24),Cisplatin induced neuropathy (H24) 100 mLs (This is NOT a prescription, and does not certify that the patient has a qualifying medical condition for medical cannabis. The purpose of this order is to document that the patient reports taking medical cannabis.) 0 Information only 0 methocarbamol (ROBAXIN) 750 MG tablet Take 1 tablet (750 mg) by mouth 4 times daily as needed for muscle spasms 15 tablet 0 10/03/2019 documented as of this encounter ED Notes * Lisa Freedman RN - 08/25/2022 6:02 PM CDT Pt presents for evaluation of HTN with associated headache and blurred vision. Was seen here recently for same, given BP meds (amlodipine and labetalol) and told to follow up with PCP. Called PCP today and was advised to come in for further evaluation due to swelling in BLE, BUE and facial swellingwith short of breath. Pt has also been traveling recently. Went to pharmacy on Wednesday and bought an OTC water pill. Blurry vision started Wednesday. Took BP meds this am. documented in this encounter Miscellaneous Notes * Result Encounter Note - Pavel Abraham RN - 08/25/2022 6:31 PM CDT Within normal reference range. * Result Encounter Note - Pavel Abraham RN - 08/25/2022 6:31 PM CDT Notified and encouraged to discuss with PCP or return to Emergency Dept to be evaluated documented in this encounter Plan of Treatment Scheduled Orders Name Type Priority Associated Diagnoses Orde r Schedule EKG 12-lead, tracing only EKG STAT One Time for 1 O ccurrences starting 08/25/2022 until 08/25/2022 documented as of this encounter Procedures Procedure Name Priority Date/Time Associated Diagnosis Comments EXTRA TUBE STAT 08/25/2022 6:27 PM CDT EXTRA RED TOP TUBE STAT 08/25/2022 6: 27 PM CDT EXTRA BLUE TOP TUBE STAT 08/25/2022 6 :27 PM CDT CBC WITH PLATELETS AND DIFFERENTIAL STAT 08/25/2022 6:27 PM CDT TROPONIN T, HIGH SENSITIVITY STAT 08/25/2022 6:27 PM CDT CBC WITH PLATELETS & DIFFERENTIAL STAT 08/25/2022 6:27 PM CDT NT PROBNP INPATIENT STAT 08/25/2022 6 :27 PM CDT D DIMER QUANTITATIVE STAT 08/25/2022 6:27 PM CDT BASIC METABOLIC PANEL STAT 08/25/2022 6:27 PM CDT EKG 12-LEAD, TRACING ONLY STAT 08/25/2022 6:23 PM CDT documented in this encounter Results * Extra Red Top Tube (08/25/2022 6:27 PM CDT) [facility] Hold Specimen [facility] 08/25/2022 7:46 PM CDT [facility] Blood STRUCTURE OF RIGHT UPPER LIMB / Unknown Venipuncture / Unknown 08/25/2022 6:27 PM CDT 08/25/2022 6:33 PM CDT Jose Alfredo Brooks MD LAB - BLOOD JUICE LEVI LAB[facility]AT[facility] [address] Lab (1st floor, no room number) [place] [address], [facility] [phone] * Extra Blue Top Tube (08/25/2022 6:27 PM CDT) Hold Specimen [facility] 08/25/2022 7:46 PM CDT [facility] Blood STRUCTURE OF RIGHT UPPER LIMB / Unknown Venipuncture / Unknown 08/25/2022 6:27 PM CDT 08/25/2022 6:33 PM CDT Jose Alfredo Brooks MD LAB - BLOOD JUICE LEVI Performing Organization Address [facility]/ZIP Co de Phone Number LABORATORY [facility] [address] Lab (1st floor, no room number) [place] [address], [facility] [phone] * (ABNORMAL) CBC with platelets and differential (08/25/2022 6:27 PM CDT) [facility] WBC Count 12.9(H) 4.0 - 11.0 10e3/uL 08/25/2022 6:36 PM CDT [facility] RBC Count 5.15 4.40 - 5.90 10e6/uL 08/25/2022 6:36 PM CDT [facility] Hemoglobin 15.7 13.3 - 17.7 g/dL 08/25/2022 6:36 PM CDT [facility] Hematocrit 46.4 40.0 - 53.0 % 08/25/2022 6:36 PM CDT [facility] MCV 90 78 - 100 fL 08/25/2022 6:36 PM CDT [facility] MCH 30.5 26.5 - 33.0 pg 08/25/2022 6:36 PM CDT [facility] MCHC 33.8 31.5 - 36.5 g/dL 08/25/2022 6:36 PM CDT [facility] RDW 12.7 10.0 - 15.0 % 08/25/2022 6:36 PM CDT [facility] Platelet Count 265 150 - 450 10e3/uL 08/25/2022 6:36 PM CDT [facility] % Neutrophils 62 % 08/25/2022 6:36 PM CDT [facility] % Lymphocytes 23 % 08/25/2022 6:36 PM CDT [facility] % Monocytes 9 % 08/25/2022 6:36 PM CDT [facility] % Eosinophils 4 % 08/25/2022 6:36 PM CDT [facility] % Basophils 1 % 08/25/2022 6:36 PM CDT [facility] % Immature Granulocytes 1 % 08/25/2022 6:36 PM CDT [facility] NRBCs per 100 WBC 0 <1 /100 023 6:36 PM CDT [facility] Absolute Neutrophils 8.2 1.6 - 8.3 10e3/uL 08/25/2022 6:36 PM CDT [facility] Absolute Lymphocytes 2.9 0.8 - 5.3 10e3/uL 08/25/2022 6:36 PM CDT [facility] Absolute Monocytes 1.1 0.0 - 1.3 10e3/uL 08/25/2022 6:36 PM CDT [facility] Absolute Eosinophils 0.5 0.0 - 0.7 10e3/uL 08/25/2022 6:36 PM CDT [facility] Absolute Basophils 0.1 0.0 - 0.2 10e3/uL 08/25/2022 6:36 PM CDT [facility] Absolute Immature Granulocytes 0.1 <=0.4 10e3/uL 08/25/2022 6:36 PM CDT [facility] Absolute NRBCs 0.0 10e3/uL 08/25/2022 6:36 PM CDT [facility] Blood STRUCTURE OF RIGHT UPPER LIMB / Unknown Venipuncture / Unknown 08/25/2022 6:27 PM CDT 08/25/2022 6:33 PM CDT Jose Alfredo Brooks MD LAB - BLOOD ORDE AMITA [facility] Organization Address City/State/ZIP Co de Phone Number [facility] [address] Lab (1st floor, no room number) [place] [address], [facility] [phone] * D dimer quantitative (08/25/2022 6:27 PM CDT) Pathologist [facility] D-Dimer Quantitative 0.33 0.00 - 0.50 ug/mL FEU 08/25/2022 7:03 PM CDT [facility] Blood STRUCTURE OF RIGHT UPPER LIMB / Unknown Venipuncture / Unknown 08/25/2022 6:27 PM CDT 08/25/2022 6:33 PM CDT Narrative [facility] - 08/25/2022 7:03 PM CDT This D-dimer assay is intended for use in conjunction with a clinical pretest probability assessment model to exclude pulmonary embolism (PE) and deep venous thrombosis (DVT) in outpatients suspected of PE or DVT. The cut-off value is 0.50 ug/mL FEU. Jose Alfredo Brooks MD LAB - BLOOD JUICE LEVI LABORATORY [facility] Lab [address] Lab (1st floor, no room number) [place] [phone] [phone] * BNP (08/25/2022 6:27 PM CDT) Pathologist [facility] N terminal Pro BNP Inpatient <36 0 - 450 pg/mL 08/25/2022 7:21 PM CDT [facility] Comment: Reference range shown and results flagged as abnormal are suggested inpatient cut points for confirming diagnosis if CHF in an acute setting. Establishing a baseline value for each individual patient is useful for follow-up. An inpatient or emergency department NT-proPBNP <300 pg/mL effectively rules out acute CHF, with 99% negative predictive value. The outpatient non-acute reference range for ruling out CHF is: 0-125 pg/mL (age 18 to less than 75) 0-450 pg/mL (age 75 yrs and older) Blood STRUCTURE OF RIGHT UPPER LIMB / Unknown Venipuncture / Unknown 08/25/2022 6:27 PM CDT 08/25/2022 6:32 PM CDT Jose Alfredo Brooks MD LAB - BLOOD JUICE LEVI Performing Organization Address City/[facility]/ZIP Co de Phone Number LABORATORY [facility] [address] Lab (1st floor, no room number) [place] [address], [facility] [phone] * Troponin T, High Sensitivity (08/25/2022 6:27 PM CDT) Troponin T, High Sensitivity 8 <=22 ng/L 08/25/2022 7:08 PM CDT LABORATORY Comment: Either a High Sensitivity Troponin T baseline (0 hours) value = 100 ng/L, or an increase in High Sensitivity Troponin T = 7 ng/L at 2 hours compared to 0 hours (2-0 hours), suggests myocardial injury, and urgent clinical attention is required. ?? If the 2-0 hours increase is <7 ng/L, a High Sensitivity Troponin T result above gender-specific reference ranges warrants further evaluation. Recommendations for further evaluation include correlation with clinical decision-making tool (e.g., HEART), a 3rd High Sensitivity Troponin T test 2 hours after the 2nd (a 20% change from baseline would represent concern), admission for observation, close PCC/cardiology follow-up, or urgent outpatient provocative testing. Blood STRUCTURE OF RIGHT UPPER LIMB / Unknown Venipuncture / Unknown 08/25/2022 6:27 PM CDT 08/25/2022 6:32 PM CDT Jose Alfredo Brooks MD LAB - BLOOD DANIKAYasemin AMITA Performing Organization Address [facility]/ZIP Co de Phone Number LABORATORY [facility] [address] Lab (1st floor, no room number) [place] [address], [facility] [phone] * (ABNORMAL) Basic metabolic panel (08/25/2022 6:27 PM CDT) Sodium 139 136 - 145 mmol/L 08/25/2022 7:03 PM CDT LABORATORY Potassium 3.8 3.4 - 5.3 mmol/L 08/25/2022 7:03 PM CDT LABORATORY Chloride 101 98 - 107 mmol/L 08/25/2022 7:03 PM CDT LABORATORY Carbon Dioxide (CO2) 25 22 - 29 mmol/L 08/25/2022 7:03 PM CDT LABORATORY Anion Gap 13 7 - 15 mmol/L 08/25/2022 7:03 PM CDT LABORATORY Urea Nitrogen 16.5 6.0 - 20.0 mg/dL 08/25/2022 7:03 PM CDT LABORATORY Creatinine 0.95 0.67 - 1.17 mg/dL 08/25/2022 7:03 PM CDT LABORATORY Calcium 9.4 8.6 - 10.0 mg/dL 08/25/2022 7:03 PM CDT LABORATORY Glucose 112(H) 70 - 99 mg/dL 08/25/2022 7:03 PM CDT LABORATORY GFR Estimate >90 >60 mL/min/1.7 3m2 08/25/2022 7:03 PM CDT LABORATORY Comment:eGFR calculated usin 2020 CKD-EPI equation. Blood STRUCTURE OF RIGHT UPPER LIMB / Unknown Venipuncture / Unknown 08/25/2022 6:27 PM CDT 08/25/2022 6:32 PM CDT Jose Alfredo Brooks MD LAB - BLOOD DANIKAE AMITA LABORATORY [facility] [address] [facility] Lab (1st floor, no room number) [place] [address], [facility] [phone] * EKG 12-lead, tracing only (08/25/2022 6:23 PM CDT) Systolic Blood Pressure mmHg RADIOLOGY RESULTS Diastolic Blood Pressure mmHg RADIOLOGY RESULTS Ventricular Rate 100 BPM RAD IOLOGY RESULTS Atrial Rate 100 BPM RADIOLOG Y RESULTS [place] Interval 184 ms RADIOLOG Y RESULTS QRS Duration 94 ms RADIOLO GY RESULTS QT 362 ms RADIOLOGY RESULTS QTc 466 ms RADIOLOGY RESULTS P [place] 32 degrees RADIOLOGY RESULTS R AXIS 9 degrees RADIOLOGY RESULTS T [place] 18 degrees RADIOLOGY RESULTS Interpretation ECG Sinus rhythm Normal ECG When compared with ECG of 13-AUG-2022 15:29, No significant change was found Confirmed by - EMERGENCY ROOM, PHYSICIAN ([id number]), development editor KALLI BLOUNT (Jeana) on 08/26/2022 6:34:03 AM RADIOLOGY RESULTS 08/25/2022 6:23 PM CDT 08/26/2022 6:34 AM CDT Jose Alfredo Brooks MD ECG ORDERABLES RADIOLOGY RESULTS documented in this encounter Visit Diagnoses Not on filedocumented in this encounter Additional Health Concerns Assessment Noted Time PHQ-9 Depression Total Score: 5 03/20/20 16 7:18 AM CDT documented as of this encounter Care Teams Wafer Fabrication Operator Relationship Specialty Start Date End Date [facility]- [address], [place] [address] PCP - General 04/30/19 documented as of this encounter
--- OUTSIDE RECORDS SUMMARY | 2023-06-08 15:22 | XMS_ITS | Encounter Summary ---
Author Name Unknown Organization [place] Address [address] [place] [address] Care Team Providers Care Signal Helper Name Role Phone Carlos Chapman MD Primary Care Provider + Aida Hdz Unavailable [phone] Carlos Chapman MD Unavailable [phone] Carlos Chapman MD Unavailable [phone] [facility]- Primary Care Provider Encounter Details Date Type Department Care Team (Late st Contact Info) Description 08/04/2016 MyC Medical Advice [address] [address] [place] [address] [place] [address] Social History Tobacco Use Types [...] documented as of this encounter Care Teams Signal Helper Relationship Specialty Start Date End Date Carlos Chapman MD PCP - General Family Practice 02/06/14 04/29/19 [place] [address] [address] [address] PCP - Assigned PCP 06/28/16 08/02/18 [facility]- [address] [address] PCP - General 04/30/19 Aida Hdz [facility] Photography Teacher Account Resolution Specialist - Clinical 12/12/15 01/21/17 [place] [address] [address] [address] Assigned PCP 06/28/16 02/24/20 documented as of this encounter
--- OUTSIDE RECORDS SUMMARY | 2023-06-08 15:22 | XMS_ITS | Encounter Summary ---
Author Name Unknown Organization [place] Address [facility] [place] [address] Care Team Providers Care Slack Cooper Name Role Phone [facility]- Primary Care Provider Reason for Visit * Reason Comments Hypertension Encounter Details Date Type Department Care Team (Late st Contact Info) Description 08/13/2022 3:56 PM CDT - 08/13/2022 6:40 PM CDT Emergency [facility] Emergency Dept [address] [place] [address] Jose Alfredo Brooks MD [facility] [address] [place], [place] [id number] Hypertension, unspecified type Discharge Disposition: Home or Self Care Social History Tobacco Use Types Packs/Day Years [...] suspected to have Coronavirus/COVID-19? No / Unsure 08/13/2022 3:14 PM CDT documented as of this encounter Last Filed Vital Signs Vital Sign Reading Time Taken Comments Blood Pressure 170/121 08/13/2022 6:15 PM CDT Pulse 85 08/13/2022 6:15 PM CDT Temperature 36.4 ??C (97.6 ??F) 08/13/2022 3:14 PM CD T Respiratory Rate 14 08/13/2022 6:15 PM CDT Oxygen Saturation 95% 08/13/2022 6:15 PM CDT Inhaled Oxygen Concentration - - Weight - - Height - - Body Mass Index - - documented in this encounter Discharge Instructions * Discharge Instructions* Jose Alfredo Brooks MD - 08/13/2022 6:27 PM CDT We have given you a dose of blood pressure medication. We recommend that we start a medication to treat your blood pressure is quite high we have found no major problems brain imaging or lab work though we do not want to wait for this to happen and make sure you work with the team with a primary care physician to help manage your blood pressure return to the emergency room with thunderclap or sudden onset headache or chest pain or shortness of breath. Please follow-up with the clinic in soon aspossible to recheck your blood pressure on your new medications. Thanks for your patience today. * Attachments The following attachments cannot be sent through Care Everywhere. * High Blood Pressure, Established, Out of Control (Telugu) documented in this encounter Medications at Time [...] 30 tablet 1 02/17/2017 cholecalciferol (VITAMIN D3) 04772 UNITS capsuleIndications:Vi tamin D deficiency Take 1 capsule (50,000 Units) by mouth once a week 12 capsule 3 08/17/2016 fluticasone (FLONASE) 50 MCG/ACT sprayIndications:Seas onal allergic rhinitis, unspecified allergic rhinitis trigger [place] 1-2 sprays into both nostrils daily 1 [...] as of this encounter ED Notes * Joleen Sanchez, RN - 08/13/2022 3:18 PM CDT Pt report a few weeks of a severe headache. No hx of migraines. He reports dizziness, fatigue, and ongoing nausea with the headache. He states he started taking his BP and it has been high in the 180s. No chest pain, SOB, or leg swelling. Not currently on BP meds. Triage Assessment Row Name 08/13/22 6007 Triage Assessment (Adult) Airway WDL WDL Respiratory WDL Respiratory WDL WDL Skin Circulation/Temperature WDL Skin Circulation/Temperature WDL WDL Cardiac WDL Cardiac WDL WDL Peripheral/Neurovascular WDL Peripheral Neurovascular WDL WDL Cognitive/Neuro/Behavioral WDL Cognitive/Neuro/Behavioral WDL WDL * Jose Alfredo Brooks MD - 08/13/2022 3:12 PM CDT History Chief Complaint: Hypertension HPI Ronn Hinkle is a 36 year old male with a history of hypertension, GERD, and peripheral neuropathy who presents with hypertension. Patient reports having dizziness, light headedness, shortness of breath, and vision change for the last couple of weeks. He reports having to bring soup to his grandmother last week and yesterday, but forgot both times due to his symptoms. He states laying down worsens his pain and or if he moves too quick, stating to feel like he's going to black out. He reports being diagnosed a couple of years ago for hypertension, and prescribed a medication in which he has stopped taking. He states the medication to not be effective and just escudero through his pain. Patient states to only take Ibuprofen to help with pain. Independent Historian: Patient Review of External Notes: ROS: Review of Systems Eyes: Positive for visual disturbance. Respiratory: Positive for shortness of breath. Neurological: Positive for dizziness and light-headedness. All other systems reviewed and are negative. Allergies: No known drug allergies Medications: Mylanta Cetirizine HCL [place] Flonase Robaxin Lamictal Zestril Seroquel Past Medical History: Chronic pain Testicular cancer Hypertension Neuromuscular disorder Obesity Palpitations GERD Inguinal hernia Fibromyalgia syndrome Peripheral neuropathy Tinnitus Past Surgical History: Orchiectomy inguinal Lap cholecystectomy EGD Colonoscopy Portacath placement Abdomen peritoneum omentum CO removal testis, partial Family History: Father: obesity Mother: obesity. hypertension Social History: Patient arrived via private vehicle to the ED. PCP: [place] Torrie, [facility]- Physical Exam Patient Vitals for the past 24 hrs: BP Temp Pulse Resp SpO2 08/13/22 1635 (!) 189/123 -- 85 18 95 % 08/13/22 1622 (!) 190/119 -- 88 -- -- 08/13/22 1514 (!) 189/124 97.6 ??F (36.4 ??C) 99 16 98 % Physical Exam Vitals reviewed. Constitutional: Appearance: He is obese. HENT: Head: Normocephalic. Right Ear: Tympanic membrane normal. Left Ear: Tympanic membrane normal. Nose: Nose normal. Mouth/Throat: Mouth: Mucous membranes are moist. Eyes: Extraocular Movements: Extraocular movements intact. Pupils: Pupils are equal, round, and reactive to light. Cardiovascular: Rate and Rhythm: Normal rate and regular rhythm. Pulmonary: Effort: Pulmonary effort is normal. Abdominal: General: Abdomen is flat. Palpations: Abdomen is soft. Musculoskeletal: General: Normal range of motion. Cervical back: Normal range of motion. Skin: General: Skin is warm. Capillary Refill: Capillary refill takes less than 2 seconds. Neurological: General: No focal deficit present. Mental Status: He is alert and oriented to person, place, and time. Psychiatric: Mood and Affect: Mood normal. Emergency Department Course ECG ECG taken at 1529, ECG read at 1531 Normal sinus rhythm Normal ECG Rate 91 bpm. CO interval 186 ms. QRS duration 80 ms. QT/QTc 368/452 ms. P-R-T axes 30 1 24. Imaging: Head CT w/o contrast Final Result IMPRESSION: 1. Normal head CT. Report per radiology Laboratory: Labs Ordered and Resulted from Time of ED Arrival to Time of ED Departure BASIC METABOLIC PANEL - Abnormal Result Value Sodium 139 Potassium 3.5 Chloride 101 Carbon Dioxide (CO2) 28 Anion Gap 10 Urea Nitrogen 15.6 Creatinine 1.05 Calcium 9.3 Glucose 115 (*) GFR Estimate >90 TROPONIN T, HIGH SENSITIVITY - Normal Troponin T, High Sensitivity 7 CBC WITH PLATELETS AND DIFFERENTIAL WBC Count 10.8 RBC Count 5.25 Hemoglobin 15.8 Hematocrit 46.3 MCV 88 MCH 30.1 MCHC 34.1 RDW 12.7 Platelet Count 246 % Neutrophils 58 % Lymphocytes 26 % Monocytes 10 % Eosinophils 4 % Basophils 1 % Immature Granulocytes 1 NRBCs per 100 WBC 0 Absolute Neutrophils 6.4 Absolute Lymphocytes 2.8 Absolute Monocytes 1.1 Absolute Eosinophils 0.5 Absolute Basophils 0.1 Absolute Immature Granulocytes 0.1 Absolute NRBCs 0.0 Emergency Department Course & Assessments: Interventions: Medications NIFEdipine ER OSMOTIC (PROCARDIA XL) 24 hr tablet 30 mg (has no administration in time range) Independent Interpretation (X-rays, CTs, rhythm strip): None Assessments/Consultations/Discussion of Management or Tests: ED Course as of 08/13/22 1827 Yesenia Aug 13, 2022 1609 I obtained history and examined the patient as noted above. 1823 I rechecked the patient. Social Determinants of Health affecting care: None Disposition: The patient was discharged to home. Impression & Plan Medical Decision Making: Patient presents with ongoing elevated blood pressures a few weeks of ongoing intermittent headaches self-discontinued is on blood pressure medication patient's MAP is somewhat elevated but is very well-appearing. Neurological exam is normal. Patient did go for head CT to rule out bleed mass or shift and was negative. Lab work unremarkable given a single dose of oral blood pressure medication with minimal results but due to ED boarding and overcrowding due to patient's chronic history of hypertension patient was explained the rapid decreases in blood pressure not acutely and emergent at this time encouraged to follow-up as an outpatient was offered labetalol and Norvasc as an initiation forblood pressure treatment and follow-up with primary care for reassessment. Patient was discharged home in stable condition. Critical Care time: Was 0 minutes for this patient excluding procedures. Diagnosis: ICD-10-CM 1. Hypertension, unspecified type I10 Discharge Medications: Discharge Medication List as of 08/13/2022 6:29 PM START taking these medications Details amLODIPine (NORVASC) 10 MG tablet Take 1 tablet (10 mg) by mouth daily, Disp-30 tablet, R-0, Local Print labetalol (NORMODYNE) 200 MG tablet Take 1 tablet (200 mg) by mouth 2 times daily, Disp-30 tablet, R-0, Local Print Scribe Disclosure: I, LUCÍA ACOSTA, am serving as a scribe at 5:04 PM on 08/13/2022 to document services personally performed by Jose Alfredo Brooks MD based on my observations and the provider's statements to me. 08/13/2022 Jose Alfredo Brooks MD Goodman, Brian Samuel, MD 08/13/22 3397 documented in this encounter Plan of Treatment Not on file documented as of this encounter Procedures Procedure Name Priority Date/Time Associated Diagnosis Comments CT HEAD W/O CONTRAST STAT 08/13/2022 4:30 PM CDT CBC WITH PLATELETS AND DIFFERENTIAL STAT 08/13/2022 3:38 PM CDT TROPONIN T, HIGH SENSITIVITY STAT 08/13/2022 3:38 PM CDT CBC WITH PLATELETS & DIFFERENTIAL STAT 08/13/2022 3:38 PM CDT BASIC METABOLIC PANEL STAT 08/13/2022 3:38 PM CDT EKG 12-LEAD, TRACING ONLY STAT 08/13/2022 3:29 PM CDT documented in this encounter Results * Head CT w/o contrast (08/13/2022 4:30 PM CDT) Anatomical Region Laterality Modality Head, SUBRAD CT NEURO, SUBRA D CT NEURO, UMP CT NEURO, RAD CT Computed Tomography 08/13/2022 4:30 PM CDT Impressions 08/13/2022 4:36 PM CDT IMPRESSION: 1. ??Normal head CT. Narrative 08/13/2022 4:36 PM CDT EXAM: CT HEAD W/O CONTRAST LOCATION: [facility] DATE/TIME: 08/13/2022 4:30 PM INDICATION: severe headache, hypertension; Headache; Acute POPE (< 3 months), no complicating features COMPARISON: 04/30/[address] TECHNIQUE: Routine CT Head without IV contrast. Multiplanar reformats. Dose reduction techniques were used. FINDINGS: INTRACRANIAL CONTENTS: No intracranial hemorrhage, extraaxial collection, or mass effect. ??No CT evidence of acute infarct. Normal parenchymal attenuation. Normal ventricles and sulci. VISUALIZED ORBITS/SINUSES/MASTOIDS: No intraorbital abnormality. No paranasal sinus mucosal disease. No middle ear or mastoid effusion. BONES/SOFT TISSUES: No acute abnormality. Procedure Note Camron Cruz MD - 08/13/2022 EXAM: CT HEAD W/O CONTRAST LOCATION: [facility] DATE/TIME: 08/13/2022 4:30 PM INDICATION: severe headache, hypertension; Headache; Acute POPE (< 3months), no complicating features COMPARISON: 04/30/[address] TECHNIQUE: Routine CT Head without IV contrast. Multiplanar reformats.Dose reduction techniques were used. FINDINGS: INTRACRANIAL CONTENTS: No intracranial hemorrhage, extraaxial collection,or mass effect. No CT evidence of acute infarct. Normal parenchymalattenuation. Normal ventricles and sulci. VISUALIZED ORBITS/SINUSES/MASTOIDS: No intraorbital abnormality. Noparanasal sinus mucosal disease. No middle ear or mastoid effusion. BONES/SOFT TISSUES: No acute abnormality. IMPRESSION: 1. Normal head CT. Jose Alfredo Brooks MD IMG CT ORDERABLE S * CBC with platelets and differential (08/13/2022 3:38 PM CDT) WBC Count 10.8 4.0 - 11.0 10e3/uL 08/13/2022 3:57 PM CDT [facility] RBC Count 5.25 4.40 - 5.90 10e6/uL 08/13/2022 3:57 PM CDT [facility] Hemoglobin 15.8 13.3 - 17.7 g/dL 08/13/2022 3:57 PM CDT [facility] Hematocrit 46.3 40.0 - 53.0 % 08/13/2022 3:57 PM CDT [facility] MCV 88 78 - 100 fL 08/13/2022 3:57 PM CDT [facility] MCH 30.1 26.5 - 33.0 pg 08/13/2022 3:57 PM CDT [facility] MCHC 34.1 31.5 - 36.5 g/dL 08/13/2022 3:57 PM CDT [facility] RDW 12.7 10.0 - 15.0 % 08/13/2022 3:57 PM CDT [facility] Platelet Count 246 150 - 450 10e3/uL 08/13/2022 3:57 PM CDT [facility] % Neutrophils 58 % 08/13/2022 3:57 PM CDT [facility] % Lymphocytes 26 % 08/13/2022 3:57 PM CDT [facility] % Monocytes 10 % 08/13/2022 3:57 PM CDT [facility] % Eosinophils 4 % 08/13/2022 3:57 PM CDT [facility] % Basophils 1 % 08/13/2022 3:57 PM CDT [facility] % Immature Granulocytes 1 % 08/13/2022 3:57 PM CDT [facility] NRBCs per 100 WBC 0 <1 /100 023 3:57 PM CDT [facility] Absolute Neutrophils 6.4 1.6 - 8.3 10e3/uL 08/13/2022 3:57 PM CDT [facility] Absolute Lymphocytes 2.8 0.8 - 5.3 10e3/uL 08/13/2022 3:57 PM CDT [facility] Absolute Monocytes 1.1 0.0 - 1.3 10e3/uL 08/13/2022 3:57 PM CDT [facility] Absolute Eosinophils 0.5 0.0 - 0.7 10e3/uL 08/13/2022 3:57 PM CDT [facility] Absolute Basophils 0.1 0.0 - 0.2 10e3/uL 08/13/2022 3:57 PM CDT [facility] Absolute Immature Granulocytes 0.1 <=0.4 10e3/uL 08/13/2022 3:57 PM CDT [facility] Absolute NRBCs 0.0 10e3/uL 08/13/2022 3:57 PM CDT [facility] Blood STRUCTURE OF RIGHT UPPER LIMB / Unknown Venipuncture / Unknown 08/13/2022 3:38 PM CDT 08/13/2022 3:52 PM CDT Jose Alfredo Brooks MD LAB - BLOOD ORDE AMITA [facility] Organization Address City/State/ZIP Co de Phone Number [facility] [address] [facility] Lab (1st floor, no room number) [place] [address], [facility] [phone] * Troponin T, High Sensitivity (now) (08/13/2022 3:38 PM CDT) Troponin T, High Sensitivity 7 <=22 ng/L 08/13/2022 4:22 PM CDT [facility] Comment: Either a High Sensitivity Troponin [...] UPPER LIMB / Unknown Venipuncture / Unknown 08/13/2022 3:38 PM CDT 08/13/2022 3:52 PM CDT Jose Alfredo Brooks MD LAB - BLOOD JUICE LEVI [facility] Organization Address City/State/ZIP Co de Phone Number LABORATORY [facility] [address] Lab (1st floor, no room number) [place] [address], [facility] [phone] * (ABNORMAL) Basic metabolic panel (BMP) (08/13/2022 3:38 PM CDT) Sodium 139 136 - 145 mmol/L 08/13/2022 4:20 PM CDT LABORATORY Potassium 3.5 3.4 - 5.3 mmol/L 08/13/2022 4:20 PM CDT LABORATORY Chloride 101 98 - 107 mmol/L 08/13/2022 4:20 PM CDT LABORATORY Carbon Dioxide (CO2) 28 22 - 29 mmol/L 08/13/2022 4:20 PM CDT LABORATORY Anion Gap 10 7 - 15 mmol/L 08/13/2022 4:20 PM CDT LABORATORY Urea Nitrogen 15.6 6.0 - 20.0 mg/dL 08/13/2022 4:20 PM CDT LABORATORY Creatinine 1.05 0.67 - 1.17 mg/dL 08/13/2022 4:20 PM CDT LABORATORY Calcium 9.3 8.6 - 10.0 mg/dL 08/13/2022 4:20 PM CDT LABORATORY Glucose 115(H) 70 - 99 mg/dL 08/13/2022 4:20 PM CDT [facility] GFR Estimate >90 >60 mL/min/1.7 3m2 08/13/2022 4:20 PM CDT [facility] Comment:eGFR calculated usin 2020 CKD-EPI equation. Blood STRUCTURE OF RIGHT UPPER LIMB / Unknown Venipuncture / Unknown 08/13/2022 3:38 PM CDT 08/13/2022 3:52 PM CDT Jose Alfredo Brooks MD LAB [facility] [address] Lab (1st floor, no room number) [place] [address], [facility] [phone] * EKG 12 lead (08/13/2022 3:29 PM CDT) Systolic Blood Pressure mmHg RADIOLOGY RESULTS Diastolic Blood Pressure mmHg RADIOLOGY RESULTS Ventricular Rate 91 BPM RAD IOLOGY RESULTS Atrial Rate 91 BPM RADIOLOG Y RESULTS CO Interval 186 ms RADIOLOG Y RESULTS QRS Duration 80 ms RADIOLO GY RESULTS QT 368 ms RADIOLOGY RESULTS QTc 452 ms RADIOLOGY RESULTS P [place] 30 degrees RADIOLOGY RESULTS R AXIS 1 degrees RADIOLOGY RESULTS T [place] 24 degrees RADIOLOGY RESULTS Interpretation ECG Sinus rhythm Normal ECG When compared with ECG of 19-DEC-2020 11:22, No significant change was found Confirmed by - EMERGENCY ROOM, PHYSICIAN ([id number]), technical editor DANNIE HUGHES ([id number]) on 08/14/2022 7:09:00 AM RADIOLOGY RESULTS 08/13/2022 3:29 PM CDT 08/14/2022 7:09 AM CDT Jose Alfredo Brooks MD ECG ORDERABLES RADIOLOGY RESULTS documented in this encounter Visit Diagnoses Diagnosis Hypertension, unspecified type documented in this encounter Administered Medications Inactive Administered Medications - up to 3 most recent administrations Medication Order MAR Action Action Date Dose Rate Site NIFEdipine ER OSMOTIC (PROCARDIA XL) 24 hr tablet 30 mg 30 mg, Oral, ONCE, On Yesenia 08/13/22 at 1630, For 1 dose, DO NOT CRUSH. $Given 08/13/2022 5:29 PM CDT 30 mg documented in this encounter Active and Recently Administered Medications Times are shown in CDT. Scheduled Medication Order 08/11/2022 08/12/2022 08/13/2022 NIFEdipine ER OSMOTIC (PROCARDIA XL) 24 hr tablet 30 mg (COMPLETED) 30 mg, Oral, ONCE, On [place] 08/13/22 at 1630, For 1 dose, DO NOT CRUSH. 1727 ($Given - Provi lukas: Cecy Vincent) documented in this encounter Additional Health Concerns Assessment Noted Time PHQ-9 Depression Total Score: 5 03/20/20 16 7:18 AM CDT documented as of this encounter Care Teams Slack Cooper Relationship Specialty Start Date End Date [facility]- [address], [place] [address] PCP - General 04/30/19 documented as of this encounter
--- OUTSIDE RECORDS SUMMARY | 2023-06-08 15:22 | XMS_ITS | Encounter Summary ---
Author Name Unknown Organization [place] Address [address] [place] [address] Care Team Providers Care Broadcast Operations Manager Name Role Phone [facility]- Primary Care Provider Encounter Details Date Type Department Care Team (Latest Contact Info) Description 08/13/2022 Travel Social History Tobacco Use Types Packs/Day [...] PM CDT documented as of this encounter Plan of Treatment Not on file documented as of this encounter Visit Diagnoses Not on filedocumented in this encounter Additional Health Concerns Assessment Noted Time PHQ-9 Depression Total Score: 5 03/20/20 16 7:18 AM CDT documented as of this encounter Care Teams Broadcast Operations Manager Relationship Specialty Start Date End Date [facility]- [address] [place] [address] PCP - General 04/30/19 documented as of this encounter
--- OUTSIDE RECORDS SUMMARY | 2023-06-08 15:22 | XMS_ITS | Clinical Summary ---
Author Name Unknown Organization [place] Address [address] [facility] [place] [address] Care Team Providers Care Energy Conservation Director Name Role Phone [facility]- Primary Care Provider Allergies Active Allergy Reactions [...] not taking.Reported on 02/17/2017 cholecalciferol (VITAMIN D3) 39094 UNITS capsuleIndications: Vitamin D deficiency Take 1 capsule (50,000 Units) by mouth once a week 12 capsule 3 08/17/2016 Active Additional Information Patient not taking.Reported on 02/17/2017 fluticasone (FLONASE) 50 MCG/ACT sprayIndications:Se asonal allergic rhinitis, unspecified allergic rhinitis trigger [place] 1-2 sprays into both nostrils daily 1 [...] migh t be different from the original. [email or web address] Problem Noted Date Diagnosed Date CARDIOVASCULAR SCREENING; [...] Clinic evaluation in the past: Yes Date/Location: [place] 11/2014 and new referral 10/2015 DIRE Total Score(s): No flowsheet data found. 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 Dizziness 03/09/2014 [facility] 03/06/2014 Overview: Status: Resources provided Lpn Care Manager: Ammy Olivera RN [phone], Susan Garcia SW [phone] (no active care coordination) See Letters for [facility] Emergency Care Plan Date: March 06, 2014 [...] TDAP (Adacel,Boostrix) 11/17/2011 TDAP Vaccine (Adacel) 10/26/2012 Family History Medical History Relation Comments Obesity Father C.A.D. Maternal Grandfather [place] Myocardial Infarction Maternal Grandfather C.A.D. Maternal Uncle several with hea rt disease Cancer Maternal Uncle lymphoma Neurologic Disorder Maternal Uncle Multiple Scl erosis and brain aneurysm Obesity Mother Cancer Paternal Grandfather stomach can cer Relation Status Comments Brother 1 Alive Brother [...] 08/25/2022 6:07 PM CDT Plan of Treatment Health Maintenance Due Date Last Done Comments ANNUAL REVIEW OF HM ORDERS 1985 HEPATITIS B IMMUNIZATION (1 of 3 - 3-dose series) 1984 URINE DRUG SCREEN 1984 COVID-19 Vaccine (#1) 04/09/1985 MEDICARE ANNUAL WELLNESS VISIT 10/26/2013 10/26/2012 ADVANCE CARE PLANNING 03/16/2021 03/16/2016, 016 LIPID 08/18/2021 08/18/2016, 09/2016, 02/05/2015, Additional history exists PHQ-2 (once per calendar year) 2022 03/19/2016, 03/19/2016, 03/19/2015 INFLUENZA VACCINE (#1) 2023 7, 04/06/2014, 03/01/2009, Additional history exists DTAP/TDAP/TD IMMUNIZATION (8 - Td or Tdap) 04/29/2031 04/29/2021, 11/14/2018, 11/14/2018, Additional history exists HEPATITIS C SCREENING Completed 03/19/2015 HIV SCREENING Completed 03/19/2015 HPV IMMUNIZATION Aged Out No longer e ligible based on patient's age to complete this topic IPV IMMUNIZATION Aged Out No longer e ligible based on patient's age to complete this topic MENINGITIS IMMUNIZATION Aged Out No l onger eligible based on patient's age to complete this topic Pneumococcal Vaccine: Pediatrics (0 to 5 Years) and At-Risk Patients (6 to 64 Years) Aged Out No longer eligible based on patient's age to complete this topic RSV MONOCLONAL ANTIBODY Aged Out No l onger eligible based on patient's age to complete this topic Advance Directives For more information, please contact: [phone] Documents on File Type Date Recorded Patient Histopath Tech Expl anation Advance Directives and Living Will 01/14/2016 11:14 AM RESUSCITATION GUIDELINES 01/08/2016 Latest Code Status on File Code Status Date Activated Date Inactivated Comments Full Code 01/10/2016 4:04 PM 04/30/2019 4:34 PM Care Teams Energy Conservation Director Relationship Specialty Start Date End Date [facility]- [address] [place] [address] PCP - General 04/30/19
--- OUTSIDE RECORDS SUMMARY | 2023-06-08 15:22 | XMS_ITS | Encounter Summary ---
Author Name Unknown Organization [place] Address [address] [place] [address] Care Team Providers Care Color Stripper Name Role Phone Carlos Chapman MD Primary Care Provider + Aida Hdz Unavailable [phone] Carlos Chapman MD Unavailable [phone] Carlos Chapman MD Unavailable [phone] [facility]- Primary Care Provider Encounter Details Date Type Department Care Team (Late st Contact Info) Description 09/01/2016 [facility] Medical Advice [employer] [id number] [place] [address], [address] [place] [address] [place] [address] [place] [address] Social History Tobacco Use Types [...] documented as of this encounter Care Teams Color Stripper Relationship Specialty Start Date End Date Carlos Chapman MD PCP - General Family Practice 02/06/14 04/29/19 [place] [address] [address] [address] PCP - Assigned PCP 06/28/16 08/02/18 [facility]- [address], [place] [address] PCP - General 04/30/19 [facility] [employer] - Clinical 12/12/15 01/21/17 [place] [address] [address] [address] Assigned PCP 06/28/16 02/24/20 documented as of this encounter
--- OUTSIDE RECORDS SUMMARY | 2023-06-08 15:22 | XMS_ITS | Continuity of Care Document ---
Author Name Unknown Organization [facility] Address [address] [address] [place] [address] Phone Care Team Providers Care Supervising Deputy Name Role Phone Mikael BAEZA, Buck Unavailable Unavailable Allergies, Adverse Reactions, Alerts Substance Reaction Status Criticality No Known Allergies Active No Inform ation Medications Medication Instructions Dosage Effective Dates (start - stop) Status Comments Maalox Advanced 1,000 mg-60 mg chewable tablet - Active omeprazole 40 mg capsule,delayed release take 1 by Oral route every day Take 30 minutes before breakfast. - Active Maalox Advanced 200 mg-200 mg-20 [...] [facility], [address] [address], [place], [id number], [place] tel:[phone] [facility] GI Symptoms or Concerns (chief complaint) Right upper quadrant abdominal painGastroesophageal reflux disease without esophagitisDietary counseling and surveillanceEssentia l (primary) hypertension 6 Mikael Jane. [address] [facility], [place], [place], [id number] , [place]. tel: [phone] Referring Provider: Referral Self, USE FOR SELF REFERRALS. [facility], [address] [address], [place], [id number], [place] tel:[phone] No Information 7 Yulia Cristina. [address] [facility], [facility] [place], [id number] , [place]. tel: [phone] Offic Cons New/estab Mod-hi 60 [facility], [address] [address], [place], [place], [id number], [place] tel:[phone] [facility] DiarrheaLLQ PainDysphagiaHeartbu rn 7 Yulia Cristina. [address] [facility], [facility] [place], [address] , [place]. tel: [phone] Offic Cons New/estab Low 30 Mi [facility], [address] [address], [place], [place], [id number], [place] tel:[phone] [facility] No Information 7 Carlos Stoddard. [address] [facility], [facility] [address], [place], [place], [id number] , [place]. tel: [phone] Referring Provider: Jorge Olivares MD, [address] [place], [address]. tel:[phone] Family History Family Member Type Diagnosis Age At Onset Mother Problem (finding) Alive and well Sister Problem (finding) Alive and well Son Problem (finding) Alive and well Father Problem (finding) Alive and well Brother Problem (finding) Alive and well Payers Payer name Insurance type Covered alliance party ID Authoriza tion(s) No Information Social History [...] he wasevaluated in the emergency department at [facility] where he had a CT scan performed [...] Information Instructions Date Instruction Additional Infor mation 1. Reassurance about abdominal pain, suspect this [...] Mental Status Date Cognitive Assessment Orientation - [place] ed to time, place, person, situation. Patient Care Teams Name Effective Dates (start - stop) Status Members No Information
--- OUTSIDE RECORDS SUMMARY | 2023-06-08 15:22 | XMS_ITS | Encounter Summary ---
Author Name Unknown Organization [place] Address [address] [place] [address] Care Team Providers Care Roller Shop Utility Worker Name Role Phone Carlos Chapman MD Primary Care Provider + Aida Hdz Unavailable [phone] Carlos Chapman MD Unavailable [phone] Carlos Chapman MD Unavailable [phone] [facility]- Primary Care Provider Encounter Details Date Type Department Care Team (Late st Contact Info) Description 03/30/2016 MyC Medical Advice [address] [address] Geri Camarillo, PA [facility] [address] [place] [address] Social History Tobacco Use Types Packs/Day [...] documented as of this encounter Care Teams Roller Shop Utility Worker Relationship Specialty Start Date End Date Carlos Chapman MD PCP - General Family Practice 02/06/14 04/29/19 [place] [address] [place] [address] PCP - Assigned PCP 06/28/16 08/02/18 [facility]- [address], [place] [address] PCP - General 04/30/19 Aida Hdz [facility] Visual Coordinator Tender Coordinator - Clinical 12/12/15 01/21/17 [place] [address] [place] [address] Assigned PCP 06/28/16 02/24/20 documented as of this encounter
--- OUTSIDE RECORDS SUMMARY | 2023-06-08 15:22 | XMS_ITS | Encounter Summary ---
Author Name Unknown Organization [place] Address [address] [place] [address] Care Team Providers Care Chief Cardiopulmonary Technologist Name Role Phone [facility]- Primary Care Provider Encounter Details Date Type Department Care Team (Latest Contact Info) Description 08/25/2022 Travel Social History Tobacco Use Types Packs/Day [...] documented as of this encounter Care Teams Chief Cardiopulmonary Technologist Relationship Specialty Start Date End Date [facility]- [address] [place] [address] PCP - General 04/30/19 documented as of this encounter
--- OUTSIDE RECORDS SUMMARY | 2023-06-08 15:23 | XMS_ITS | Encounter Summary ---
Author Name Unknown Organization [place] Address [address] [facility] [place] [address] Care Team Providers Care Dancer Or Choreographer Name Role Phone Carlos Chapman MD Primary Care Provider + Aida Hdz Unavailable [phone] Carlos Chapman MD Unavailable [phone] Carlos Chapman MD Unavailable [phone] [facility]- Primary Care Provider Reason for Visit * Reason Onset Date Comments Forms 01/02/2015 Encounter Details Date Type Department Care Team (Late st Contact Info) Description 01/02/2015 Telephone [facility] [address] [address] Bettina Bejarano DO [facility] [address] [place], [place] [address] Forms Social History Tobacco Use Types Packs/Day Years Used Date Smoking Tobacco: Never Smokeless Tobacco: Never Alcohol Use Standard Drinks/Week Comments Yes 0 (1 standard drink = 0.6 oz pur e alcohol) occ Sex and Gender Information Value Date Recorded Sex Assigned at Not on file Gender Identity Not on file Sexual Orientation Not on file documented as of this encounter Miscellaneous Notes * Telephone Encounter - Jayne Reeder RN - 01/02/2015 11:46 AM CDT Nathan left message. He faxed the form he forgot to bring to his last appt. When Dr. Bejarano is done completing it the form can be faxed to: [phone] Jayne Dempsey RN-[facility] documented in this encounter Plan of Treatment Not on file documented as of this encounter Visit Diagnoses Not on filedocumented in this encounter Care Teams Dancer Or Choreographer Relationship Specialty Start Date End Date Carlos Chapman MD PCP - General Family Practice 02/06/14 04/29/19 [place] [address] [place] [address] PCP - Assigned PCP 06/28/16 08/02/18 [facility]- [address], [place] [address] PCP - General 04/30/19 Aida Hdz [facility] Clinic Toll Operator Engineer Booster And Exhauster - Clinical 12/12/15 01/21/17 [place] [address] [place] [address] Assigned PCP 06/28/16 02/24/20 documented as of this encounter
== END 2023-06-08 15:16 | disposition home or self-care (01) ==
LOC: LKVREF 15:16
PROVIDERS: PCP Physician Assistant Medical; Visit Provider Physician Assistant
DX: H66.90 Otitis media, unspecified, unspecified ear (principal)
CPT/HCPCS: 87070; 87186

== ENCOUNTER 2023-06-23 08:57 | Outpatient (CLI) | payer OTHER, SELFPAY ==
--- NOTE | 2023-06-23 09:00 | CRLHL7_ITS ---
For Patients: As a result of the Century Cures Act, medical imaging exams and procedure reports are released immediately into your electronic medical record. You may view this report before your referring provider. If you have questions, please contact your health care provider. INDICATION: Otorrhea, unspecified ear TECHNIQUE: CT of the temporal bones without contrast. Coronal and axial small field of view reconstructions of both temporal bones are included. COMPARISON: 09/09/[address] FINDINGS: RIGHT temporal bone: The external auditory canal is widely patent. No EAC stenosis or obstruction. The tympanic membranes are not thickened. The right middle ear is clear. No material is present within the sinus tympani. The ossicles are normal in appearance and location with no erosions or dislocation. The otic capsule is normal in appearance. No sclerosis within the labyrinthine canal. No fistula between the labyrinth and the middle ear. The vestibule and semicircular canals are normal in morphology with no evidence of semicircular canal dehiscence. Normal cochlear morphology with appropriate number of turns. Vestibular aqueduct is normal in size. Facial nerve canal is intact and normal in course/caliber. Petrous apex is normal. Mastoid air cells are clear. The carotid canal and jugular foramen are normal. LEFT temporal bone: The external auditory canal is widely patent. No EAC stenosis or obstruction. The tympanic membranes are not thickened. The left middle ear is clear. No material is present within the sinus tympani. The ossicles are normal in appearance and location with no erosions or dislocation. The otic capsule is normal in appearance. No sclerosis within the labyrinthine canal. No fistula between the labyrinth and the middle ear. The vestibule and semicircular canals are normal in morphology with no evidence of semicircular canal dehiscence. Normal cochlear morphology with appropriate number of turns. Vestibular aqueduct is normal in size. Facial nerve canal is intact and normal in course/caliber. Petrous apex is normal. Mastoid air cells are clear. The carotid canal and jugular foramen are normal. OTHER: No fracture or significant degenerative change, lytic or blastic process is demonstrated in the skull base or temporomandibular joints. The imaged intracranial structures are normal in appearance. Orbits are normal. Imaged soft tissue structures are normal in appearance. Mild sinus disease noted. IMPRESSION: Unremarkable CT of the temporal bones. Please note that all CT scans at this facility use dose modulation, iterative reconstruction, and/or weight-based dosing when appropriate to reduce radiation dose to as low as reasonably achievable. Dictated by Jonnie Cervantes MD @ 06/23/2023 12:30:36 PM (Electronically Signed)
--- OUTSIDE RECORDS SUMMARY | 2023-06-23 09:02 | XMS_ITS | Encounter Summary ---
Author Name Unknown Organization [place] Address [address] [place] [address] Care Team Providers Care Api Architect Name Role Phone [facility]- Primary Care Provider Encounter Details [...] documented as of this encounter Care Teams Api Architect Relationship Specialty Start Date End Date [facility]- [address] [place] [address] PCP - General 04/30/19 documented as of this encounter
--- OUTSIDE RECORDS SUMMARY | 2023-06-23 09:02 | XMS_ITS | Encounter Summary ---
Author Name Unknown Organization [place] Address [address] [place] [address] Care Team Providers Care Cooking Casing And Drying Supervisor Name Role Phone Carlos Chapman MD Primary Care Provider + Aida Hdz Unavailable [phone] Carlos Chapman MD Unavailable [phone] Carlos Chapman MD Unavailable [phone] [facility]- Primary Care Provider Encounter Details Date Type Department Care Team (Late st Contact Info) Description 09/01/2016 MyC Medical Advice [facility] [id number] [place] [address], [address] [place] [address] [place] [address] [place] [address] Social History Tobacco Use Types [...] documented as of this encounter Care Teams Cooking Casing And Drying Supervisor Relationship Specialty Start Date End Date Carlos Chapman MD PCP - General Family Practice 02/06/14 04/29/19 [place] [address] [place] [address] PCP - Assigned PCP 06/28/16 08/02/18 [facility]- [address], [place] [address] PCP - General 04/30/19 Aida Hdz L[facility] Clinic Tile And Mottle Supervisor Pocket Operator - Clinical 12/12/15 01/21/17 [place] [address] [place] [address] Assigned PCP 06/28/16 02/24/20 documented as of this encounter
--- OUTSIDE RECORDS SUMMARY | 2023-06-23 09:02 | XMS_ITS | Encounter Summary ---
Author Name Unknown Organization [place] Address [address] [place] [address] Care Team Providers Care Perl Software Engineer Name Role Phone Carlos Chapman MD Primary Care Provider + Aida Hdz Unavailable [phone] Carlos Chapman MD Unavailable [phone] Carlos Chapman MD Unavailable [phone] [facility]- Primary Care Provider Encounter Details Date Type Department Care Team (Late st Contact Info) Description 03/30/2016 MyC Medical Advice [address] [address] Geri Camarillo, PA [facility] [address] [place] [address] Social History Tobacco Use Types [...] documented as of this encounter Care Teams Perl Software Engineer Relationship Specialty Start Date End Date Carlos Chapman MD PCP - General Family Practice 02/06/14 04/29/19 [place] [address] [place] [address] PCP - Assigned PCP 06/28/16 08/02/18 [facility]- [address] [address] PCP - General 04/30/19 Aida Hdz L[facility]W Clinic Center Hole Reamer Automatic Packer Operator - Clinical 12/12/15 01/21/17 [place] [address] [place] [address] Assigned PCP 06/28/16 02/24/20 documented as of this encounter
--- OUTSIDE RECORDS SUMMARY | 2023-06-23 09:02 | XMS_ITS | Referral Summary ---
Author Name Unknown Organization [place] Address [address] [facility] [place] [address] Care Team Providers Care Care Transitions Manager Name Role Phone [facility]- Primary Care Provider Allergies Active Allergy Reactions [...] not taking.Reported on 02/17/2017 cholecalciferol (VITAMIN D3) 17803 UNITS capsuleIndications: Vitamin D deficiency Take 1 capsule (50,000 Units) by mouth once a week 12 capsule 3 08/17/2016 Active Additional Information Patient not taking.Reported on 02/17/2017 fluticasone (FLONASE) 50 MCG/ACT sprayIndications:Se asonal allergic rhinitis, unspecified allergic rhinitis trigger [place] 1-2 sprays into both nostrils daily 1 [...] migh t be different from the original. http://[email or web address].[email or web address]/[email or web address] Problem Noted Date Diagnosed Date CARDIOVASCULAR SCREENING; [...] Clinic evaluation in the past: Yes Date/Location: [place] 11/2014 and new referral 10/2015 DIRE Total Score(s): No flowsheet data found. 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 Dizziness 03/09/2014 [facility] 03/06/2014 Overview: Status: Resources provided Stock Parts Fabricator: Ammy Olivera RN [phone], Susan Garcia SW [phone] (no active care coordination) See Letters for [facility] Emergency Care Plan Date: March 06, 2014 [...] CDT Plan of Treatment Not on file Ronn Hinkle S Personal/Famil y Self 1985 [id number] [place] [address] Ronn Hinkle S Personal/Famil y Self 1985 None (Work) [id number] [address] [facility] [place] [address] HinkleRonn woods S Third Republican Self 1985 None (Work) [id number] [address] [facility] [place] [address] HinkleRonn woods S Third Republican Self 1985 [address] [place] [address] HinkleRonn woods S Third Republican Self 1985 [address] [place] [address] Ronn Hinkle S Third Republican Self 1985 None (Work) [id number] [address] [facility] [place] [address] Advance Directives For more information, please contact: [phone] Documents on File Type Date Recorded Patient Ceiling Insulation Blower Expl anation Advance Directives and Living Will 01/14/2016 11:14 AM RESUSCITATION GUIDELINES 01/08/2016 Latest Code Status on File Code Status Date Activated Date Inactivated Comments Full Code 01/10/2016 4:04 PM 04/30/2019 4:34 PM Care Teams Care Transitions Manager Relationship Specialty Start Date End Date [facility]- [address] [place] [address] PCP - General 04/30/19
--- OUTSIDE RECORDS SUMMARY | 2023-06-23 09:02 | XMS_ITS | Clinical Summary ---
Author Name Unknown Organization [employer] [facility] Address [place], [place] [address] Care Team Providers Care Bus Washer Name Role Phone Jaz Shore RN Primary Care Provider [phone] Allergies No known active allergies Medications Medication [...] Comments Blood Pressure 143/100 07/03/2020 2:05 PM DIRECTOR OF DISTRIBUTION Pulse 95 07/03/2020 2:05 PM DIRECTOR OF DISTRIBUTION Temperature 37.6 ??C (99.6 ??F) 02/02/2014 1:45 PM CD T Respiratory Rate 20 07/03/2020 2:05 PM DIRECTOR OF DISTRIBUTION Oxygen Saturation 97% 07/03/2020 2:05 PM DIRECTOR OF DISTRIBUTION Inhaled Oxygen Concentration - - Weight 97.3 kg (214 lb 7 oz) 07/25/2020 2:56 PM DIRECTOR OF DISTRIBUTION Height 170.2 cm (5' 7) 07/25/2020 2:56 PM DIRECTOR OF DISTRIBUTION Body Mass Index 33.59 07/25/2020 2:56 PM DIRECTOR OF DISTRIBUTION Plan of Treatment Health Maintenance Due Date [...] 7:54 AM 08/14/2006 2:06 AM Care Teams Bus Washer Relationship Specialty Start Date End Date Jaz Shore, RN [address] [place] [address] PCP - General Registered Nurse 01/25/19
--- OUTSIDE RECORDS SUMMARY | 2023-06-23 09:02 | XMS_ITS | Encounter Summary ---
Author Name Unknown Organization [place] Address [address] [place] [address] Care Team Providers Care Tongue And Groove Machine Setter Name Role Phone [facility]- Primary Care Provider Encounter Details [...] documented as of this encounter Care Teams Tongue And Groove Machine Setter Relationship Specialty Start Date End Date [facility]- [address] [place] [address] PCP - General 04/30/19 documented as of this encounter
--- OUTSIDE RECORDS SUMMARY | 2023-06-23 09:02 | XMS_ITS | Encounter Summary ---
Author Name Unknown Organization [place] Address [address] [facility] [place] [address] Care Team Providers Care Mold Burner Name Role Phone Carlos Chapman MD Primary Care Provider + Aida Hdz Unavailable [phone] Carlos Chapman MD Unavailable [phone] Carlos Chapman MD Unavailable [phone] [facility]- Primary Care Provider Reason for Visit * Reason Onset Date Comments Forms 01/02/2015 Encounter Details Date Type Department Care Team (Late st Contact Info) Description 01/02/2015 Telephone [facility] [address] [address] Bettina Bejarano DO [facility] [address] [place], [place] [address] Forms Social History Tobacco Use Types Packs/Day [...] it the form can be faxed to: [phone] Jayne Dempsey RN-[facility] documented in this encounter Plan of Treatment Not on file documented as of this encounter Visit Diagnoses Not on filedocumented in this encounter Care Teams Mold Burner Relationship Specialty Start Date End Date Carlos Chapman MD PCP - General Family Practice 02/06/14 04/29/19 [place] [address] [place] [address] PCP - Assigned PCP 06/28/16 08/02/18 [facility]- [address], [place] [address] PCP - General 04/30/19 Aida Hdz LGSW Clinic Garnishment Specialist Supervisor Calibration - Clinical 12/12/15 01/21/17 [place] [address] [place] [address] Assigned PCP 06/28/16 02/24/20 documented as of this encounter
--- OUTSIDE RECORDS SUMMARY | 2023-06-23 09:02 | XMS_ITS | Clinical Summary ---
Author Name Unknown Organization [place] Address [address] [facility] [place] [address] Care Team Providers Care Gaming Table Operator Name Role Phone [facility]- Primary Care Provider Allergies Active Allergy [...] not taking.Reported on 02/17/2017 cholecalciferol (VITAMIN D3) 27918 UNITS capsuleIndications: Vitamin D deficiency Take 1 capsule (50,000 Units) by mouth once a week 12 capsule 3 08/17/2016 Active Additional Information Patient not taking.Reported on 02/17/2017 fluticasone (FLONASE) 50 MCG/ACT sprayIndications:Se asonal allergic rhinitis, unspecified allergic rhinitis trigger [place] 1-2 sprays into both nostrils daily 1 [...] migh t be different from the original. [email or web address] Problem Noted Date Diagnosed Date CARDIOVASCULAR SCREENING; [...] Clinic evaluation in the past: Yes Date/Location: [place] 11/2014 and new referral 10/2015 DIRE Total Score(s): No flowsheet data found. 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 Dizziness 03/09/2014 [facility] 03/06/2014 Overview: Status: Resources provided Store Operations Manager: Ammy Olivera RN [phone], Susan Garcia SW [phone] (no active care coordination) See Letters for [facility] Emergency Care Plan Date: March 06, [...] Relation Comments Obesity Father C.A.D. Maternal Grandfather [place] Myocardial Infarction Maternal Grandfather C.A.D. Maternal Uncle [...] 08/18/2021 08/18/2016, 09/2016, 02/05/2015, Additional history exists INFLUENZA VACCINE (#1) 2023 7, 04/06/2014, 03/01/2009, Additional history exists PHQ-2 (once per calendar year) 2023 03/19/2016, 03/19/2016, 03/19/2015 DTAP/TDAP/TD IMMUNIZATION (8 - Td or Tdap) [...] Advance Directives For more information, please contact: [phone] Documents on File Type Date Recorded Patient Middle Card Tender Expl anation Advance Directives and Living Will 01/14/2016 11:14 AM RESUSCITATION GUIDELINES 01/08/2016 Latest Code Status on File Code Status Date Activated Date Inactivated Comments Full Code 01/10/2016 4:04 PM 04/30/2019 4:34 PM Care Teams Gaming Table Operator Relationship Specialty Start Date End Date [facility]- [address] [place] [address] PCP - General 04/30/19
--- OUTSIDE RECORDS SUMMARY | 2023-06-23 09:02 | XMS_ITS | Encounter Summary ---
Author Name Unknown Organization [place] Address [address] [place] [address] Care Team Providers Care Stove Cleaner Name Role Phone Carlos Chapman MD Primary Care Provider + Aida Hdz Unavailable [phone] Carlos Chapman MD Unavailable [phone] Carlos Chapman MD Unavailable [phone] [facility]- Primary Care Provider Encounter Details Date Type Department Care Team (Late st Contact Info) Description 08/04/2016 MyC Medical Advice [address] [address] [place] [address] [place] [address] Social History Tobacco Use Types [...] documented as of this encounter Care Teams Stove Cleaner Relationship Specialty Start Date End Date Carlos Chapman MD PCP - General Family Practice 02/06/14 04/29/19 [place] [address] [place] [address] PCP - Assigned PCP 06/28/16 08/02/18 [facility]- [address], [place] [address] PCP - General 04/30/19 Aida Hdz LGSW Clinic [employer] Science Teacher Turn Down Worker - Clinical 12/12/15 01/21/17 [place] [address] [address] [address] Assigned PCP 06/28/16 02/24/20 documented as of this encounter
--- OUTSIDE RECORDS SUMMARY | 2023-06-23 09:02 | XMS_ITS | Encounter Summary ---
Author Name Unknown Organization [place] Address [facility] [place] [address] Care Team Providers Care Assistant Manager/Embalmer Name Role Phone Carlos Chapman MD Primary Care Provider + Carlos Chapman MD Unavailable [phone] Carlos Chapman MD Unavailable [phone] [facility]- Primary Care Provider Encounter Details Date Type Department Care Team (Late st Contact Info) Description 02/15/2017 MyC Medical Advice [place] [address] [facility], [address] [place] [address] [place] [address] [facility] [address] Social History Tobacco Use Types [...] documented as of this encounter Care Teams Assistant Manager/Embalmer Relationship Specialty Start Date End Date Carlos Chapman MD PCP - General Family Practice 02/06/14 04/29/19 [place] [address] [address] [address] PCP - Assigned PCP 06/28/16 08/02/18 [facility]- [address] [place] [address] PCP - General 04/30/19 [place] [address] [address] [address] Assigned PCP 06/28/16 02/24/20 documented as of this encounter
--- OUTSIDE RECORDS SUMMARY | 2023-06-23 09:02 | XMS_ITS | Encounter Summary ---
Author Name Unknown Organization [place] Address [facility] [place] [address] Care Team Providers Care Ice Skater Name Role Phone [facility]- Primary Care Provider Reason for Visit * Reason Comments Leg Swelling Hypertension Encounter Details Date Type Department Care Team (Late st Contact Info) Description 08/25/2022 5:55 PM CDT - 08/25/2022 6:31 PM CDT Emergency [facility] Emergency Dept [address] [place] [address] Jose Alfredo Brooks [place] [address] [place] [address] [phone] Discharge Disposition: Left Without Being Seen Social [...] 30 tablet 1 02/17/2017 cholecalciferol (VITAMIN D3) 33150 UNITS capsuleIndications:Vi tamin D deficiency Take 1 capsule (50,000 Units) by mouth once a week 12 capsule 3 08/17/2016 fluticasone (FLONASE) 50 MCG/ACT sprayIndications:Seas onal allergic rhinitis, unspecified allergic rhinitis trigger [place] 1-2 sprays into both nostrils daily 1 [...] Red Top Tube (08/25/2022 6:27 PM CDT) [facility] Hold Specimen [facility] 08/25/2022 7:46 PM CDT RH LABORATORY Blood STRUCTURE OF RIGHT UPPER LIMB / Unknown Venipuncture / Unknown 08/25/2022 6:27 PM CDT 08/25/2022 6:33 PM CDT Jose Alfredo Brooks MD LAB - BLOOD JUICE LEVI LABORATORY [facility] [address] Lab (1st floor, no room number) [place] [address], [facility] [phone] * Extra Blue Top Tube (08/25/2022 6:27 PM CDT) Hold Specimen [facility] 08/25/2022 7:46 PM CDT [facility] LABORATORY Blood STRUCTURE OF RIGHT UPPER LIMB / Unknown Venipuncture / Unknown 08/25/2022 6:27 PM CDT 08/25/2022 6:33 PM CDT Jose Alfredo Brooks MD LAB - BLOOD JUICE LEVI Performing Organization Address [facility]/ZIP Co de Phone Number LABORATORY [facility] Lab [address] Lab (1st floor, no room number) [place] [address], [facility] [phone] * (ABNORMAL) CBC with platelets and differential (08/25/2022 6:27 PM CDT) [facility] WBC Count 12.9(H) 4.0 - 11.0 10e3/uL [...] Brooks MD LAB - BLOOD ORDE AMITA [facility] Organization Address City/State/ZIP Co de Phone Number RH LABORATORY [facility] [address] Lab (1st floor, no room number) [place] [address], [facility] [phone] * D dimer quantitative (08/25/2022 6:27 PM CDT) Pathologist [facility] D-Dimer Quantitative 0.33 0.00 - 0.50 ug/mL [...] MD LAB - BLOOD JUICE LEVI LABORATORY [facility] [address] Lab (1st floor, no room number) [place] [phone] [phone] * BNP (08/25/2022 6:27 PM CDT) Pathologist [facility] N terminal Pro BNP Inpatient <36 0 [...] - BLOOD JUICE LEVI Performing Organization Address City/[facility]/ZIP Co de Phone Number LABORATORY [facility] [address] Lab (1st floor, no room number) [place] [address], [facility] [phone] * Troponin T, High Sensitivity (08/25/2022 6:27 [...] - BLOOD DANIKAYasemin AMITA Performing Organization Address [facility]/ZIP Co de Phone Number LABORATORY [facility] [address] Lab (1st floor, no room number) [place] [address], [facility] [phone] * (ABNORMAL) Basic metabolic panel (08/25/2022 6:27 [...] MD LAB - BLOOD DANIKAE AMITA LABORATORY [facility] [address] [facility] Lab (1st floor, no room number) [place] [address], [facility] [phone] * EKG 12-lead, tracing only (08/25/2022 6:23 PM CDT) Systolic Blood Pressure mmHg RADIOLOGY RESULTS Diastolic Blood Pressure mmHg RADIOLOGY RESULTS Ventricular Rate 100 BPM RAD IOLOGY RESULTS Atrial Rate 100 BPM RADIOLOG Y RESULTS MD Interval 184 ms RADIOLOG Y RESULTS QRS Duration 94 ms RADIOLO GY RESULTS QT 362 ms RADIOLOGY RESULTS QTc 466 ms RADIOLOGY RESULTS P [place] 32 degrees RADIOLOGY RESULTS R AXIS 9 degrees RADIOLOGY RESULTS T [place] 18 degrees RADIOLOGY RESULTS Interpretation ECG Sinus rhythm Normal ECG When compared with ECG of 13-AUG-2022 15:29, No significant change was found Confirmed by - EMERGENCY ROOM, PHYSICIAN ([id number]), proposal editor KALLI BLOUNT (Jeana) on 08/26/2022 6:34:03 AM RADIOLOGY RESULTS 08/25/2022 6:23 PM CDT 08/26/2022 6:34 AM CDT Jose Alfredo Brooks MD ECG ORDERABLES RADIOLOGY RESULTS documented in this encounter Visit Diagnoses Not on filedocumented in this encounter Additional Health Concerns Assessment Noted Time PHQ-9 Depression Total Score: 5 03/20/20 16 7:18 AM CDT documented as of this encounter Care Teams Ice Skater Relationship Specialty Start Date End Date [facility]- [address], [place] [address] PCP - General 04/30/19 documented as of this encounter
--- OUTSIDE RECORDS SUMMARY | 2023-06-23 09:02 | XMS_ITS | Encounter Summary ---
Author Name Unknown Organization [place] Address [facility] [place] [address] Care Team Providers Care Director Executive Communications Name Role Phone [facility]- Primary Care Provider Reason for Visit * Reason Comments Hypertension Encounter Details Date Type Department Care Team (Late st Contact Info) Description 08/13/2022 3:56 PM CDT - 08/13/2022 6:40 PM CDT Emergency [facility] Emergency Dept [address] [place] [address] Jose Alfredo Brooks MD [facility] [address] [place], [place] [id number] Hypertension, unspecified type Discharge Disposition: Home or [...] High Blood Pressure, Established, Out of Control (Jordanian) documented in this encounter Medications at Time [...] 30 tablet 1 02/17/2017 cholecalciferol (VITAMIN D3) 53028 UNITS capsuleIndications:Vi tamin D deficiency Take 1 capsule (50,000 Units) by mouth once a week 12 capsule 3 08/17/2016 fluticasone (FLONASE) 50 MCG/ACT sprayIndications:Seas onal allergic rhinitis, unspecified allergic rhinitis trigger [place] 1-2 sprays into both nostrils daily 1 [...] BP meds. Triage Assessment Row Name 08/13/22 3634 Triage Assessment (Adult) Airway WDL WDL Respiratory [...] EGD Colonoscopy Portacath placement Abdomen peritoneum omentum PA removal testis, partial Family History: Father: obesity Mother: obesity. hypertension Social History: Patient arrived via private vehicle to the ED. PCP: Liberal oTrrie, [facility]- Physical Exam Patient Vitals for the past [...] sinus rhythm Normal ECG Rate 91 bpm. PA interval 186 ms. QRS duration 80 ms. [...] Brooks MD Goodman, Brian Samuel, MD 08/13/22 0005 documented in this encounter Plan of Treatment [...] CDT EXAM: CT HEAD W/O CONTRAST LOCATION: [facility] DATE/TIME: 08/13/2022 4:30 PM INDICATION: severe [...] 08/13/2022 EXAM: CT HEAD W/O CONTRAST LOCATION: [facility] DATE/TIME: 08/13/2022 4:30 PM INDICATION: severe [...] Brooks MD LAB - BLOOD ORDE AMITA [facility] Organization Address City/State/ZIP Co de Phone Number RH LABORATORY [facility] [address] [facility] Lab (1st floor, no room number) [place] [address], [facility] [phone] * Troponin T, High Sensitivity (now) (08/13/2022 [...] Brooks MD LAB - BLOOD JUICE LEVI [facility] Organization Address City/State/ZIP Co de Phone Number LABORATORY [facility] [address] Lab (1st floor, no room number) [place] [address], [facility] [phone] * (ABNORMAL) Basic metabolic panel (BMP) (08/13/2022 [...] Alfredo Brooks MD [facility] - [facility] [address] Lab (1st floor, no room number) [place] [address], [facility] [phone] * EKG 12 lead (08/13/2022 3:29 PM CDT) Systolic Blood Pressure mmHg RADIOLOGY RESULTS Diastolic Blood Pressure mmHg RADIOLOGY RESULTS Ventricular Rate 91 BPM RAD IOLOGY RESULTS Atrial Rate 91 BPM RADIOLOG Y RESULTS PA Interval 186 ms RADIOLOG Y RESULTS QRS Duration 80 ms RADIOLO GY RESULTS QT 368 ms RADIOLOGY RESULTS QTc 452 ms RADIOLOGY RESULTS P [place] 30 degrees RADIOLOGY RESULTS R AXIS 1 degrees RADIOLOGY RESULTS T [place] 24 degrees RADIOLOGY RESULTS Interpretation ECG Sinus rhythm Normal ECG When compared with ECG of 19-DEC-2020 11:22, No significant change was found Confirmed by - EMERGENCY ROOM, PHYSICIAN ([id number]), purchase request editor DANNIE HUGHES ([id number]) on 08/14/2022 7:09:00 AM RADIOLOGY RESULTS 08/13/2022 [...] 1630, For 1 dose, DO NOT CRUSH. 1723 ($Given - Provi lukas: Cecy Vincent) documented in this encounter Additional Health Concerns Assessment Noted Time PHQ-9 Depression Total Score: 5 03/20/20 16 7:18 AM CDT documented as of this encounter Care Teams Director Executive Communications Relationship Specialty Start Date End Date [facility]- [address], [place] [address] PCP - General 04/30/19 documented as of this encounter
--- OUTSIDE RECORDS SUMMARY | 2023-06-23 09:02 | XMS_ITS | Encounter Summary ---
Author Name Unknown Organization [place] Address [address] [facility] [place] [address] Care Team Providers Care Publication Specialist Name Role Phone Carlos Chapman MD Primary Care Provider + Aida Hdz Unavailable [phone] Carlos Chapman MD Unavailable [phone] Carlos Chapman MD Unavailable [phone] [facility]- Primary Care Provider Reason for Visit * Reason Onset Date Comments Referral 11/13/2015 Dr. Medel Encounter Details Date Type Department Care Team (Late st Contact Info) Description 11/13/[address] [address] Pain Management Program, [facility] Referral (Dr. Medel) Social History Tobacco [...] hr eval with Dr. Medel. Alivia Matias Inspector [employer] [facility] documented in this encounter Plan of Treatment Not on file documented as of this encounter Visit Diagnoses Not on filedocumented in this encounter Care Teams Publication Specialist Relationship Specialty Start Date End Date Carlos Chapman MD PCP - General Family Practice 02/06/14 04/29/19 [place] [address] [address] [address] PCP - Assigned PCP 06/28/16 08/02/18 [facility]- [address], [place] [address] PCP - General 04/30/19 Aida Hdz LGSW Clinic Enrichment Director City Recorder - Clinical 12/12/15 01/21/17 [place] [address] [address] [address] Assigned PCP 06/28/16 02/24/20 documented as of this encounter
--- NOTE | 2023-06-23 09:15 | CRLHL7_ITS ---
For Patients: As a result of the Cures Act, medical imaging exams and procedure reports are released immediately into your electronic medical record. You may view this report before your referring provider. If you have questions, please contact your health care provider. Indication: Chronic sinusitis Technique: Performed without IV contrast Comparison: None available Findings: Frontal sinuses: Trace mucosal thickening noted within the frontal sinuses. Ethmoid sinuses: Clear. Maxillary sinuses: Mucosal thickening within the right maxillary sinus is present. Postop changes are present. The sinus drainage pathways are clear bilaterally. Trace mucosal thickening left maxillary sinus. Sphenoid sinuses: Clear, including both sphenoethmoidal recesses. Nasal Cavity: No nasal polyps. No suni bullosa. No TMJ abnormalities identified. The visualized portions of the orbits, intracranial contents and upper soft tissue neck are grossly negative. Impression: 1. Mild-moderate mucosal thickening right maxillary sinus and trace mucosal thickening within both frontal sinuses and left sphenoid sinus. 2. Postop changes. No nasal polyps. Please note that all CT scans at this facility use dose modulation, iterative reconstruction, and/or weight-based dosing when appropriate to reduce radiation dose to as low as reasonably achievable. Dictated by Jonnie Cervantes MD @ 06/23/2023 12:24:34 PM (Electronically Signed)
== END 2023-06-23 08:58 | disposition home or self-care (01) ==
PROVIDERS: PCP Physician Assistant Medical; Visit Provider Otolaryngology
DX: J32.9 Chronic sinusitis, unspecified (principal); J32.0 Chronic maxillary sinusitis; J32.3 Chronic sphenoidal sinusitis; H92.10 Otorrhea, unspecified ear
CPT/HCPCS: 70480; 70486

== ENCOUNTER 2023-10-04 08:56 | Outpatient (CLI) | payer OTHER, SELFPAY ==
--- OUTSIDE RECORDS SUMMARY | 2023-10-06 07:19 | XMS_ITS | Continuity of Care Document ---
Author Name Unknown Organization [facility] Address [address], [address] [place] [address] Phone Care Team Providers Care Apple Solutions Consultant Name Role Phone [facility], [facility] Unavailable Un available Procedures Procedure Date Lo Osm Contr Mat (200-249mg) Depomedrol 80mg Marcaine 30ml Epidural Needle Epidural Tray Inj Not Lytic-epidur; Lumb/sac Fluoro Guidance - Spine Advance Directives Directive Yes / No Effective Date File Name No Information Encounters Encounter Description Practice Location Reason(s) For Visit Diagnoses Date Provider Providers Copied on Encounter [facility], [address], [address], [place], [address], [place] tel:[phone] [facility] No Information [facility]. [address], [address], [place], [address], [place]. Family History Family Member Type Diagnosis Age At Onset No Information Payers Payer name Insurance type Covered libertarian ID Authoriza tiandre(s) [facility] INS [place] [id number] Social History Type Description Quantity Date Captured [...]
--- OUTSIDE RECORDS SUMMARY | 2023-10-06 07:19 | XMS_ITS | Continuity of Care Document ---
Author Name Unknown Organization [facility] Address [address] [address] [place] [address] Phone Care Team Providers Care Crew Mess Attendant Name Role Phone Mikael BAEZA, Buck Unavailable [...] on Encounter Offic/outpt E&m New Mod Sever [facility], [address] [address], [place], [id number], tel:[phone] [facility] Symptoms or Concerns (chief complaint) Right upper quadrant abdominal painGastroesophageal reflux disease without esophagitisDietary counseling and surveillanceEssentia l (primary) hypertension 6 Mikael Jane. [address], [place], [place], [id number] , [place]. tel: [phone] Referring Provider: Referral Self, USE FOR SELF REFERRALS. [facility], [address] [address], [place], [id number], [place] tel:[phone] No Information 7 Yulia Cristina. [address], [facility] [place], [place], [id number] , [place]. tel: [phone] Offic Cons New/estab Mod-hi 60 [facility], [address] [address], [place], [id number], [place] tel:[phone] [facility] DiarrheaLLQ PainDysphagiaHeartbu rn 7 Yulia Cristina. [address], [facility] [place], [place], [id number] , [place]. tel: [phone] Offic Cons New/estab Low 30 Mi [facility], [address] [address], [place], [place], [id number], [place] tel:[phone] [facility] No Information 7 Carlos Stoddard. [address], [facility] [address], [place], [place], [id number] , [place]. tel: [phone] Referring Provider: Jorge Olivares MD, [address] [place], [address]. tel:[phone] Family History Family Member Type Diagnosis Age At Onset Mother Problem (finding) Alive and well Sister Problem (finding) Alive and well Son Problem (finding) Alive and well Father Problem (finding) Alive and well Brother Problem (finding) Alive and well Payers Payer name Insurance type Covered libertarian ID Authoriza tion(s) No Information Social History [...] he wasevaluated in the emergency department at [facility] where he had a CT scan [...] Mental Status Date Cognitive Assessment Orientation - Goree ed to time, place, person, situation. Patient Care Teams Name Effective Dates (start - stop) Status Members No Information
--- OUTSIDE RECORDS SUMMARY | 2023-10-06 07:19 | XMS_ITS | Encounter Summary ---
Author Name Unknown Organization [place] Address [facility] [place] [address] Care Team Providers Care Decision Support Manager Name Role Phone Carlos Chapman MD Primary Care Provider + Carlos Chapman MD Unavailable [phone] Carlos Chapman MD Unavailable [phone] [facility]- Primary Care Provider Encounter Details Date Type Department Care Team (Late st Contact Info) Description 02/15/2017 MyC Medical Advice [place] [address] [facility] [place] [address] [place] [address] [facility] [place] [address] Social History Tobacco Use Types [...] documented as of this encounter Care Teams Decision Support Manager Relationship Specialty Start Date End Date Carlos Chapman MD PCP - General Family Practice 02/06/14 04/29/19 [place] [address] [address] [address] PCP - Assigned PCP 06/28/16 08/02/18 [facility]- [address] [place] [address] PCP - General 04/30/19 [place] [address] [address] [address] Assigned PCP 06/28/16 02/24/20 documented as of this encounter
--- OUTSIDE RECORDS SUMMARY | 2023-10-06 07:19 | XMS_ITS | Encounter Summary ---
Author Name Unknown Organization [place] Address [address] [place] [address] Care Team Providers Care Job Development Specialist Name Role Phone Carlos Chapman MD Primary Care Provider + Aida Hdz Unavailable [phone] Carlos Chapman MD Unavailable [phone] Carlos Chapman MD Unavailable [phone] [facility]- Primary Care Provider Encounter Details Date Type Department Care Team (Late st Contact Info) Description 08/04/2016 MyC Medical Advice [address] [address] [place] [address] [place] [address] Social History Tobacco Use Types [...] documented as of this encounter Care Teams Job Development Specialist Relationship Specialty Start Date End Date Carlos Chapman MD PCP - General Family Practice 02/06/14 04/29/19 [place] [address] [address] [address] PCP - Assigned PCP 06/28/16 08/02/18 [facility]- [address], [place] [address] PCP - General 04/30/19 Aida Hdz LGSW Clinic Director Of Special Services Water Chaser - Clinical 12/12/15 01/21/17 [place] [address] [address] [address] Assigned PCP 06/28/16 02/24/20 documented as of this encounter
--- OUTSIDE RECORDS SUMMARY | 2023-10-06 07:19 | XMS_ITS | Referral Summary ---
Author Name Unknown Organization [place] Address [address] [facility] [place] [address] Care Team Providers Care Pet Sitting Name Role Phone [facility]- Primary Care Provider Allergies Active Allergy [...] not taking.Reported on 02/17/2017 cholecalciferol (VITAMIN D3) 04601 UNITS capsuleIndications: Vitamin D deficiency Take 1 capsule (50,000 Units) by mouth once a week 12 capsule 3 08/17/2016 Active Additional Information Patient not taking.Reported on 02/17/2017 fluticasone (FLONASE) 50 MCG/ACT sprayIndications:Se asonal allergic rhinitis, unspecified allergic rhinitis trigger [place] 1-2 sprays into both nostrils daily 1 [...] as needed for muscle spasms 15 tablet 10/03/2019 Active labetalol (NORMODYNE) 200 MG tablet Take 1 tablet (200 mg) by mouth 2 times daily 30 tablet 08/13/2022 Active amLODIPine (NORVASC) 10 MG tablet Take 1 tablet (10 mg) by mouth daily 30 tablet 08/13/2022 Active Active Problems Patient Care Coordination No te Formatting of this note migh t be different from the original. http://[email or web address].[email or web address] Problem Noted Date Diagnosed Date CARDIOVASCULAR SCREENING; [...] syndrome 11/04/2015 Overview: Patient is followed by [facility] for ongoing prescription of pain medication. All refills should be approved by this provider, or covering partner. Medication(s): medical cannabis. Maximum quantity per month: not prescribed by [facility] visit frequency required: also managed by [facility] Controlled substance agreement on file: No Pain Clinic evaluation in the past: Yes Date/Location: [facility] 11/2014 and new referral 10/2015 DIRE Total Score(s): No flowsheet data found. 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 Dizziness 03/09/2014 Health Snf 03/06/2014 Overview: Status: Resources provided Public Health Aide: Ammy Olivera RN [phone], Susan LANDIS [phone] (no active care coordination) See Letters for [facility] Emergency Care Plan Date: March [...] CDT Plan of Treatment Not on file Procedures Procedure Name Priority Date/Time Associated Diagnosis Comments BASIC METABOLIC PANEL STAT 08/25/2022 6:27 PM CDT HIV ANTIGEN ANTIBODY COMBO Routine 03/19/2015 2:19 PM CDT Screen for STD (sexually transmitted disease) HEPATITIS C ANTIBODY Routine 03/19/2015 2:19 PM CDT Screen for STD (sexually transmitted disease) from Last 3 Months or Most Recently Relevant to Health Maintenance Results * (ABNORMAL) Basic metabolic panel (08/25/2022 6:27 PM CDT) Sodium 139 136 - 145 mmol/L 08/25/2022 7:03 PM CDT LABORATORY Potassium 3.8 3.4 - 5.3 mmol/L 08/25/2022 7:03 PM CDT [facility] Chloride 101 98 - 107 mmol/L 08/25/2022 7:03 PM CDT [facility] Carbon Dioxide (CO2) 25 22 - 29 mmol/L 08/25/2022 7:03 PM CDT [facility] Anion Gap 13 7 - 15 mmol/L 08/25/2022 7:03 PM CDT [facility] Urea Nitrogen 16.5 6.0 - 20.0 [...] MD LAB - BLOOD [facility] Acute Care Lab [address] [facility] Lab (1st floor, no room number) [place] [address], [facility] [phone] * HIV Antigen Antibody Combo (03/19/2015 2:19 PM CDT) HIV Antigen Antibody Combo Nonreactive HIV-1 p24 Ag & HIV-1/HIV-2 Ab Not Detected NR [facility] [place] Blood specimen (specimen) 03/19/2015 2:19 PM CDT 03/19/2015 2:20 PM CDT Mic Jc PA-C LAB - BLOOD OR DERABLES [facility] [address] * Hepatitis C antibody (03/19/2015 2:19 PM CDT) Hepatitis C Antibody Nonreactive Assay performance characteristics have not been established for newborns, infants, and children NR [facility] Blood specimen (specimen) 03/19/2015 2:19 PM CDT 03/19/2015 2:20 PM CDT Mic Jc PA-C LAB - BLOOD OR DERABLES [facility] [address] from Last 3 Months or Most Recently Relevant to Health Maintenance Advance Directives For more information, please contact: [phone] Documents on File Type Date Recorded Patient Last Code Striper Expl anation Advance Directives and Living Will 01/14/2016 11:14 AM RESUSCITATION GUIDELINES 01/08/2016 * Full Code (Latest Code Status on File) Date Activated Date Inactivated Comments 01/10/2016 4:04 PM 04/30/2019 4:34 PM Care Teams Pet Sitting Relationship Specialty Start Date End Date [facility]- [address] [place] [address] PCP - General 04/30/19
--- OUTSIDE RECORDS SUMMARY | 2023-10-06 07:19 | XMS_ITS | Encounter Summary ---
Author Name Unknown Organization [place] Address [address] [place] [address] Care Team Providers Care Tank Setter Helper Name Role Phone Carlos Chapman MD Primary Care Provider + Aida Hdz Unavailable [phone] Carlos Chapman MD Unavailable [phone] Carlos Chapman MD Unavailable [phone] [facility]- Primary Care Provider Encounter Details Date Type Department Care Team (Late st Contact Info) Description 09/01/2016 MyC Medical Advice [facility] [id number] [place] [address], [address] [place] [address] [place] [address] [place] [address] Social History Tobacco Use Types [...] documented as of this encounter Care Teams Tank Setter Helper Relationship Specialty Start Date End Date Carlos Chapman MD PCP - General Family Practice 02/06/14 04/29/19 [place] [address] [address] [address] PCP - Assigned PCP 06/28/16 08/02/18 [facility]- [address], [place] [address] PCP - General 04/30/19 Aida Hdz [facility] Personal Development Mentor Cellophane Bag Machine Operator - Clinical 12/12/15 01/21/17 [place] [address] [address] [address] Assigned PCP 06/28/16 02/24/20 documented as of this encounter
--- OUTSIDE RECORDS SUMMARY | 2023-10-06 07:19 | XMS_ITS | Clinical Summary ---
Author Name Unknown Organization [facility] Address [place], [place] [address] Care Team Providers Care Sports Official Name Role Phone Jaz Shore RN Primary Care Provider [phone] Allergies No known active allergies Medications Medication Sig Dispensed Refills Start Date End Date Status hydroCHLOROthiazide 12.5 mg tablet Take 12.5 mg by mouth once daily. 04/26/2020 Active lamoTRIgine (LAMICTAL) 100 mg tablet 06/04/2020 Active lisinopriL (PRINIVIL; ZESTRIL) 20 mg tablet Take 20 mg by mouth once daily. 04/26/2020 Active QUEtiapine (SEROQUEL) 200 mg tablet 06/30/2020 Active Active Problems Problem Noted Date [...] Comments Blood Pressure 143/100 07/03/2020 2:05 PM LASTING MACHINE OPERATOR HAND METHOD Pulse 95 07/03/2020 2:05 PM LASTING MACHINE OPERATOR HAND METHOD Temperature 37.6 ??C (99.6 ??F) 02/02/2014 1:45 PM CD T Respiratory Rate 20 07/03/2020 2:05 PM LASTING MACHINE OPERATOR HAND METHOD Oxygen Saturation 97% 07/03/2020 2:05 PM LASTING MACHINE OPERATOR HAND METHOD Inhaled Oxygen Concentration - - Weight 97.3 kg (214 lb 7 oz) 07/25/2020 2:56 PM LASTING MACHINE OPERATOR HAND METHOD Height 170.2 cm (5' 7) 07/25/2020 2:56 PM LASTING MACHINE OPERATOR HAND METHOD Body Mass Index 33.59 07/25/2020 2:56 PM LASTING MACHINE OPERATOR HAND METHOD Plan of Treatment Health Maintenance Due Date Last Done Comments Depression screening for age 12+ 1996 HIV for age 15-65 10/08/1999 BMI (ht and wt on same day) for age 18+ 2002 Hepatitis C screening for ag e 18-79 2002 Lipids for age 35-44 10/08/2019 07/05/2009 COVID-19 vaccine series (2022- season) 2023 Influenza for age 9-49 01/30/2024 03/01/2009 Tetanus booster 11/14/2028 11/14/2018, 11/17/2011, 11/29/2007 Tdap Completed 11/17/2011 Pneumococcal series for age 6-64 Aged Out No longer eligible b ased on patient's age to complete this topic Procedures Procedure Name Priority Date/Time Associated Diagnosis Comments LIPID PANEL Routine 07/05/2009 9:19 AM LASTING MACHINE OPERATOR HAND METHOD Health Maintenance from Last 3 Months or Most Recently Relevant to Health Maintenance Results * (ABNORMAL) LIPID PANEL (07/05/2009 9:19 AM LASTING MACHINE OPERATOR HAND METHOD) CHOLESTEROL,TOTAL 200(H) 110 - 199 mg/dL [facility] TRIGLYCERIDES 194(H) 40 - 149 mg/dL [facility] HDL CHOLESTEROL 34(L) >40 mg/dL [facility] CHOL/HDL RATIO 5.88(H) <4.51 [facility] LDL CHOLESTEROL 127 <131 mg/dL [facility] PATIENT STATUS Fasting [facility] Blood specimen (specimen) BLOOD SPECIMEN / Unknown 07/05/2009 9:19 AM LASTING MACHINE OPERATOR HAND METHOD 07/05/2009 8:19 AM LASTING MACHINE OPERATOR HAND METHOD Jorge Olivares MD CHEMISTRY [facility] LABORATORY INTERNAL ZIP [address] [place] [address] from Last 3 Months or Most Recently Relevant to Health Maintenance Advance Directives * Full Code (Latest Code Status on File) Date Activated Date Inactivated Comments 11/26/2009 5:20 PM 11/27/2009 4:20 PM * Full Code Date Activated Date Inactivated Comments 08/13/2006 7:54 AM 08/14/2006 2:06 AM Care Teams Sports Official Relationship Specialty Start Date End Date Jaz Shore, RN [address] [place] [address] PCP - General Registered Nurse 01/25/19
--- OUTSIDE RECORDS SUMMARY | 2023-10-06 07:19 | XMS_ITS | Continuity of Care Document ---
Author Name Unknown Organization [facility] Address [address] [place] [address] Phone Care Team Providers Care Scrape Gatherer Name Role Phone Jonnie Goetz MD Unavailable [...] Providers Copied on Encounter SUSANNE Hitchcock, [address], [place], [place], [id number], [place] tel:[phone] [facility] No Information 9 Sofy Cristina. [address], [place], [place], [id number], [place]. tel:[phone] Referring Provider: Dara Jimenez MD, [place], [address]. tel:[phone] Offic/outpt E&m Estab Low-mod Naldo, [facility], [address], [id number], tel:[phone] [facility] No Information Oct-3 0-200 9 [address] [place], [address]. tel:[phone] Referring Provider: Dara Jimenez MD, [place], [address]. tel:[phone] Naldo, [facility], [address], [id number], tel:[phone] [facility] No Information Oct-0 1200 9 No Information Offic/outpt E&m Estab Mod-hi 2 Naldo, [facility], [address] [address], [place], [place], [id number], tel:[phone] [facility] No Information 0 1 9 [address] [place], [address]. tel:[phone] Referring Provider: Dara Jimenez MD, [place], [address]. tel:[phone] Offic/outpt E&m Estab Mod-hi 2 Naldo, [facility], [address], [id number], [place] tel:[phone] [facility] No Information 2 200 [address] [place], [address]. tel:[phone] Referring Provider: Dara Jimenez MD, [place], [address]. tel:[phone] Naldo [facility], [address] [place], [id number], tel:[phone] [facility] No Information 9 RN RN. [address] [facility] [facility], [address], [place], [place], [id number], [place]. tel:[phone] Referring Provider: Dara Jimenez MD, [place], [address]. tel:[phone] Offic Cons New/estab Mod-hi 60 Naldo, [facility], [address], [place], [place], [id number], tel:[phone] [facility] No Information 9 [address]. [address] [facility] [place], [address]. tel:[phone] Referring Provider: Dara Jimenez MD, [place], [address]. tel:[phone] Family History Family Member Type Diagnosis Age At Onset No Information Payers Payer name Insurance type Covered libertarian ID Authorashishronaldo gerriandre(s) [facility] INS Auto CI [id number] Social History Type Description Quantity Date Captured [...]
--- OUTSIDE RECORDS SUMMARY | 2023-10-06 07:19 | XMS_ITS | Clinical Summary ---
Author Name Unknown Organization [facility] Address [address] [facility] [place] [address] Care Team Providers Care Orchestra Teacher Name Role Phone [facility]- Primary [...] not taking.Reported on 02/17/2017 cholecalciferol (VITAMIN D3) 79003 UNITS capsuleIndications: Vitamin D deficiency Take 1 capsule (50,000 Units) by mouth once a week 12 capsule 3 08/17/2016 Active Additional Information Patient not taking.Reported on 02/17/2017 fluticasone (FLONASE) 50 MCG/ACT sprayIndications:Se asonal allergic rhinitis, unspecified allergic rhinitis trigger [place] 1-2 sprays into both nostrils daily 1 [...] migh t be different from the original. [email or web address] Problem Noted Date Diagnosed Date CARDIOVASCULAR SCREENING; [...] Clinic evaluation in the past: Yes Date/Location: [facility] 11/2014 and new referral 10/2015 DIRE Total Score(s): No flowsheet data found. 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 Dizziness 03/09/2014 Health Long Term 03/06/2014 Overview: Status: Resources provided Rn Access: Ammy Olivera RN [phone], Susan LANDIS [phone] (no active care coordination) See Letters for [facility] Emergency Care Plan Date: March 06, 2014 [...] Relation Comments Obesity Father C.A.D. Maternal Grandfather [place] Myocardial Infarction Maternal Grandfather C.A.D. Maternal Uncle [...] Comments ANNUAL REVIEW OF HM ORDERS 1984 URINE DRUG SCREEN 1984 HEPATITIS B IMMUNIZATION (1 of 3 - 19+ 3-dose series) 10/08/2003 MEDICARE ANNUAL WELLNESS VISIT 10/26/2013 10/26/2012 ADVANCE CARE PLANNING 03/16/2021 03/16/2016, 016 COVID-19 Vaccine ( season) 2023 PHQ-2 (once per calendar year) 2023 03/19/2016, 03/19/2016, 03/19/2015 INFLUENZA VACCINE (Season Ended) 2024 03/12/2017, 04/06/2014, 03/01/2009, Additional history exists GLUCOSE 08/25/2025 08/25/2022, 07/29, 12/12/2020, Additional history exists DTAP/TDAP/TD IMMUNIZATION (8 - [...] - 145 mmol/L 08/25/2022 7:03 PM CDT [facility]AT[facility] Potassium 3.8 3.4 - 5.3 mmol/L [...] 08/25/2022 7:03 PM CDT LABORATORY Comment:eGFR calculated us2020 CKD-EPI equation. Blood STRUCTURE OF RIGHT UPPER LIMB / Unknown Venipuncture / Unknown 08/25/2022 6:27 PM CDT 08/25/2022 6:32 PM CDT Jose Alfredo Brooks MD LAB - BLOOD [facility] LABORATORY [facility] Acute Care Lab [address] Lab (1st floor, no room number) [place] [address], [facility] [phone] * HIV Antigen Antibody Combo (03/19/2015 2:19 PM CDT) HIV Antigen Antibody Combo Nonreactive HIV-1 p24 Ag & HIV-1/HIV-2 Ab Not Detected [facility] Blood specimen (specimen) 03/19/2015 2:19 PM CDT 03/19/2015 2:20 PM CDT Mic Jc PA-C LAB - BLOOD OR DERABLES [facility] [address] * Hepatitis C antibody (03/19/2015 2:19 PM CDT) Hepatitis C Antibody Nonreactive Assay performance characteristics have not been established for newborns, infants, and children NR [facility] Blood specimen (specimen) 03/19/2015 2:19 PM CDT 03/19/2015 2:20 PM CDT Mic Jc PA-C LAB - BLOOD OR DERABLES Performing Organization Address City/[facility]/ZIP Co de Phone Number [facility] [address] from Last 3 Months or Most Recently Relevant to Health Maintenance Advance Directives For more information, please contact: [phone] Documents on File Type Date Recorded Patient Director Data Management Expl anation Advance Directives and Living Will 01/14/2016 11:14 AM RESUSCITATION GUIDELINES 01/08/2016 * Full Code (Latest Code Status on File) Date Activated Date Inactivated Comments 01/10/2016 4:04 PM 04/30/2019 4:34 PM Care Teams Orchestra Teacher Relationship Specialty Start Date End Date [facility]- [address] [place] [address] PCP - General 04/30/19
--- OUTSIDE RECORDS SUMMARY | 2023-10-06 07:20 | XMS_ITS | Encounter Summary ---
Author Name Unknown Organization [place] Address [address] [place] [address] Care Team Providers Care Director Of Counterintelligence Name Role Phone Carlos Chapman MD Primary Care Provider + Aida Hdz Unavailable [phone] Carlos Chapman MD Unavailable [phone] Carlos Chapman MD Unavailable [phone] [facility]- Primary Care Provider Encounter Details Date Type Department Care Team (Late st Contact Info) Description 03/30/2016 MyC Medical Advice [address] [address] Geri Camarillo, AP [facility] [address] [place] [address] Social History Tobacco Use Types [...] as of this encounter Care Teams Director Of Counterintelligence Relationship Specialty Start Date End Date Carlos Chapman MD PCP - General Family Practice 02/06/14 04/29/19 [place] [address] [address] [address] PCP - Assigned PCP 06/28/16 08/02/18 [facility]- [address] [place] [address] PCP - General 04/30/19 Aida Hdz [facility] Railroad Car Painter Distribution Systems Serviceperson - Clinical 12/12/15 01/21/17 [place] [address] [address] [address] Assigned PCP 06/28/16 02/24/20 documented as of this encounter
--- OUTSIDE RECORDS SUMMARY | 2023-10-06 07:20 | XMS_ITS | Encounter Summary ---
Author Name Unknown Organization [place] Address [address] [facility] [place] [address] Care Team Providers Care Meteorology Instructor Name Role Phone Carlos Chapman MD Primary Care Provider + Aida Hdz Unavailable [phone] Carlos Chapman MD Unavailable [phone] Carlos Chapman MD Unavailable [phone] [facility]- Primary Care Provider Reason for Visit * Reason Onset Date Comments Referral 11/13/2015 Dr. Medel Encounter Details Date Type Department Care Team (Late st Contact Info) Description 11/13/[address] [address] Pain Management Program, [facility] Referral (Dr. Medel) Social History Tobacco Use [...] hr eval with Dr. Medel. Alivia Matias Filenet Developer [facility] documented in this encounter Plan of Treatment Not on file documented as of this encounter Visit Diagnoses Not on filedocumented in this encounter Care Teams Meteorology Instructor Relationship Specialty Start Date End Date Carlos Chapman MD PCP - General Family Practice 02/06/14 04/29/19 [place] [address] [address] [address] PCP - Assigned PCP 06/28/16 08/02/18 [facility]- [address] [address] PCP - General 04/30/19 Aida Hdz [facility] Environmental Services Assistant Assistant Director Of Public Works - Clinical 12/12/15 01/21/17 [place] [address] [address] [address] Assigned PCP 06/28/16 02/24/20 documented as of this encounter
--- OUTSIDE RECORDS SUMMARY | 2023-10-06 07:20 | XMS_ITS | Encounter Summary ---
Author Name Unknown Organization [place] Address [address] [facility] [address] Care Team Providers Care Wool Scourer Name Role Phone Carlos Chapman MD Primary Care Provider + Aida Hdz Unavailable [phone] Carlos Chapman MD Unavailable [phone] Carlos Chapman MD Unavailable [phone] [facility]- Primary Care Provider Reason for Visit * Reason Onset Date Comments Forms 01/02/2015 Encounter Details Date Type Department Care Team (Late st Contact Info) Description 01/02/2015 Telephone [facility] [address] [address] Bettina Bejarano DO [facility] [address] [place], [place] [address] Forms Social History Tobacco Use Types Packs/Day [...] it the form can be faxed to: [phone] Jayne Dempsey RN-[facility] documented in this encounter Plan of Treatment Not on file documented as of this encounter Visit Diagnoses Not on filedocumented in this encounter Care Teams Wool Scourer Relationship Specialty Start Date End Date Carlos Chapman MD PCP - General Family Practice 02/06/14 04/29/19 [place] [address] [address] [address] PCP - Assigned PCP 06/28/16 08/02/18 [facility]- [address], [place] [address] PCP - General 04/30/19 Aida Hdz [facility] Clinic Family Independence Case Manager Polymer Chemist - Clinical 12/12/15 01/21/17 [place] [address] [address] [address] Assigned PCP 06/28/16 02/24/20 documented as of this encounter
== END 2023-10-04 08:57 | disposition home or self-care (01) ==
LOC: NFLDREF 10-06 07:13
PROVIDERS: PCP Physician Assistant Medical; Referring Provider Physician Assistant Medical; Visit Provider Physician Assistant Medical
DX: I10 Essential (primary) hypertension (principal); E78.5 Hyperlipidemia, unspecified; Z13.29 Encounter for screening for other suspected endocrine disorder
CPT/HCPCS: 80053; 80061; 84443

== ENCOUNTER 2025-05-22 10:41 | Outpatient (CLI) | payer OTHER, SELFPAY ==
[2025-05-22 11:25] VITALS: BP 168/68; PULSE 92; RESP 22; O2SAT 98
--- NOTE | 2025-05-22 13:56 | W.PM.STED ---
Stress Test Note Date Date of test: 05/22/25 Providers Primary care provider: Kevin Whitten Stress test physician: Mikey Daniel Stress Test Note Stress test ordered: Exercise Stress Test Indication for test: Chest pain Stress test medicine: None Results discussion: This very nice patient presents for the above test, after discussion the risks benefits and side effects of the test, patient would like to continue. Cardiac stress test medical history form is reviewed entirely. Pretest EKG shows heart rate of 78, blood pressure [address] No acute [address] wave changes standard Mickey protocol is done over a time course of 11 minutes 32 seconds, and achieved a metabolic equivalent of 12.1 Mets. His maximum heart rate was 156 in his target predicted was 101%. Maximum blood pressure is 1 90-184. He did have any symptoms other than the little bit of fatigue. Test is terminated because of fulfillment of protocol. No dysrhythmias no ST wave changes Impression: Negative electrographic portion of stress test, subjectively negative Follow up suggested: Negative stress test. If further testing is needed recommend with imaging, such as a stress echo or Lexiscan
== END 2025-05-22 10:42 | disposition home or self-care (01) ==
PROVIDERS: PCP Family Medicine; Visit Provider Family Medicine
DX: R07.9 Chest pain, unspecified (principal)
CPT/HCPCS: 93016; 93017